=== PATIENT | male | born 1950 | race Caucasian/White ===

== ENCOUNTER 2016-12-06 21:02 | Emergency (ER) | payer MEDICARE, OTHER ==
[2016-12-06 21:08] VITALS: TEMP 97.2
[2016-12-06] MEDS ORDERED: ONDANSETRON 4 MG/2 ML VIAL IVP STA (21:33)
[2016-12-06 21:41] LABS: Basophils # (A) 0.1 k/uL (0-0.2); Basophils % (A) 1 %; CH 31.9; CHCM 34.4; Eosinophils # (A) 0.5 k/uL (0-0.7); Eosinophils % (A) 5 %; HCT 37.3 % (39.0-53.0); HDW 2.47; HGB 13.3 gm/dL (13.0-17.5); Luc # (Auto) 0.21; Luc % (Auto) 2; Lymphocytes # (A) 2.8 k/uL (1.0-4.8); Lymphocytes % (A) 29 %; MCH 33.3 pg (25.0-35.0); MCHC 35.7 g/dL (31.0-37.0); MCV 93.2 fL (80.0-100.0); Mean Platelet Volume 7.9; Monocytes # (A) 0.4 k/uL (0-1.0); Monocytes % (A) 4 %; Neutrophils # (A) 5.7 k/uL (1.3-7.7); Neutrophils % (A) 59 %; WBC 9.6 k/uL (3.8-10.6); WBC (Perox) 9.92
--- NOTE | 2016-12-06 21:44 | ED ---
Nausea/Vomiting/Diarrhea HPI - General Chief complaint: Nausea/Vomiting/Diarrhea Stated complaint: Dizzy/Vomiting Time Seen by Provider: 12/06/16 21:16 Source: patient Mode of arrival: wheelchair Limitations: no limitations - History of Present Illness Initial comments: This patient is a 66-year-old man who presents because for 3 days he has been having a lot of what he is describing as dizziness. Patient states that particularly when he gets up he feels unsteady like he will fall. The patient also states that he'll here a rushing sound in his ears. He questions whether he has a sinus infection because he has also had some pressure in his sinuses and some congestion. He does have occasional cough. The patient also states that he had recently taken a medication for his prostate and that this may be bringing the symptoms on as well. He did not recall the exact name of the medication. The patient states that this is leading to him having some vomiting and this appears to be why he was triaged as nausea and vomiting. The patient feels that the dizziness is at the root of things. Patient denies any change in his bowel movements. He states that he hasn't really been having the vomiting when he sits at rest. Patient furthermore denies anginal type symptoms , no chest pain, diaphoresis, dyspnea, palpitations or syncope. MD complaint: nausea, vomiting, other (Dizziness) Onset/Timin -: days(s) Description of Vomiting: food contents Associated Abdominal Pain: No Consistency: intermittent Worsens with: movement Associated Symptoms: nausea/vomiting - Related Data Home Medications Medication Instructions Recorded Confirmed Ergocalciferol [Vitamin D2 50,000 unit PO CORREA 05/01/14 12/06/16 (DRISDOL)] Gabapentin [Neurontin] 100 mg PO TID PRN 05/01/14 12/06/16 Hydrocodone/Acetaminophen 1 tab PO TID PRN 05/01/14 12/06/16 [Hydrocodon-Acetaminoph 7.5-325] Montelukast [Singulair] 10 mg PO DAILY 05/01/14 12/06/16 Sertraline [Zoloft] 50 mg PO DAILY 05/01/14 12/06/16 Verapamil HCl [Verapamil ER] 120 mg PO DAILY 05/01/14 12/06/16 busPIRone HCl [Buspar] 10 mg PO DAILY 05/01/14 12/06/16 metFORMIN HCL 1,000 mg PO DAILY 11/22/14 12/06/16 Citalopram Hydrobromide [CeleXA] 20 mg PO DAILY 12/06/16 12/06/16 Ibuprofen [Motrin] 800 mg PO BID PRN 12/06/16 12/06/16 Lisinopril [Zestril] 20 mg PO DAILY 12/06/16 12/06/16 Ranitidine HCl [Zantac] 150 mg PO DAILY 12/06/16 12/06/16 Tamsulosin HCl [Flomax] 0.4 mg PO DAILY 12/06/16 12/06/16 Previous Rx's Medication Instructions Recorded Azithromycin [Zithromax Z-pack] 250 mg PO DIRECTED #6 tab 12/06/16 Pseudoephedrine 12Hr [Sudafed 12Hr] 120 mg PO Q12H #20 tablet.er 12/06/16 Allergies Allergy/AdvReac Type Severity Reaction Status Date / Time dipyridamole AdvReac Nausea & Verified 12/06/16 21:58 [From Persantine] Vomiting Iodinated Contrast Media - AdvReac Nausea & Verified 12/06/16 21:58 Oral and Vomiting [Iodinated Contrast Media - IV Dye] morphine AdvReac Nausea & Verified 12/06/16 21:08 Vomiting Review of Systems ROS Statement: Those systems with pertinent positive or pertinent negative responses have been documented in the HPI. ROS Other: All systems not noted in ROS Statement are negative. Constitutional: Denies: fever, chills, weakness Eyes: Denies: vision change ENT: Reports: ear pain, congestion Respiratory: Denies: cough, dyspnea Cardiovascular: Denies: chest pain, palpitations, edema, syncope Gastrointestinal: Reports: nausea, vomiting. Denies: abdominal pain, diarrhea, constipation, hematemesis Genitourinary: Denies: dysuria, hematuria Musculoskeletal: Denies: back pain Skin: Denies: rash Neurological: Denies: headache, weakness, numbness, paresthesias Past Medical History Past Medical History: Diabetes Mellitus, GERD/Reflux, Hyperlipidemia, Hypertension, Sleep Apnea/CPAP/BIPAP Additional Past Medical History / Comment(s): 11/22/14 Pt direct admission to [facility]. He is to have Ben fundoplasty today and has no water at home. Other HX: IDDM, ERIKA cannot tolerate CPAP, varicose veins, hiatal hernia, constipation occas bleeding with stools, hemorrhoids, steroid injections with in 6 mos, current tooth infection being tx with antibiotics-has taken 2 days of ABX. History of Any Multi-Drug Resistant Organisms: None Reported Past Surgical History: Back Surgery, Cholecystectomy, Heart Catheterization, Hernia Repair Additional Past Surgical History / Comment(s): arthroscopy right knee. bilateral cataracts,jeancarlos inguinal hernia repair Past Anesthesia/Blood Transfusion Reactions: No Reported Reaction Past Psychological History: Anxiety Smoking Status: Never smoker Past Alcohol Use History: None Reported Past Drug Use History: None Reported - Past Family History Mother Additional Family Medical History / Comment(s): HAD PACEMAKER, age 86 Father Family Medical History: Dementia General Exam Limitations: no limitations General appearance: alert, in no apparent distress Head exam: Present: atraumatic, normocephalic Eye exam: Present: normal appearance. Absent: scleral icterus, conjunctival injection ENT exam: Present: normal oropharynx, mucous membranes moist, TM's normal bilaterally, normal external ear exam Neck exam: Present: normal inspection, full ROM Respiratory exam: Present: normal lung sounds bilaterally. Absent: respiratory distress, wheezes, rales, rhonchi, stridor, chest wall tenderness Cardiovascular Exam: Present: regular rate, normal rhythm, normal heart sounds. Absent: systolic murmur, diastolic murmur, rubs, gallop GI/Abdominal exam: Present: soft. Absent: distended, tenderness, guarding, rebound, mass, pulsatile mass, hernia Extremities exam: Present: normal inspection, normal capillary refill. Absent: pedal edema, calf tenderness Back exam: Present: normal inspection. Absent: CVA tenderness (R), CVA tenderness (L) Neurological exam: Present: alert, CN II-XII intact. Absent: motor sensory deficit Skin exam: Present: warm, dry, intact, normal color. Absent: rash Course Vital Signs 12/06/16 12/06/16 12/06/16 21:05 21:43 21:44 Temperature 97.2 F L Pulse Rate 59 L Pulse Rate [ 57 L 59 L French Tutor ] Respiratory 20 Rate Blood Pressure 173/84 Blood Pressure 158/86 160/89 [Right Arm] O2 Sat by Pulse 98 Oximetry Medical Decision Making - Medical Decision Making Patient is 66-year-old man in with the complaint of dizziness, nausea and vomiting. Further history at related to the dizziness indicates that it is more of a vertiginous, spinning sensation, and in conjunction with the patient' s sinus symptoms of pressure, cough and congestion will treat patient for sinusitis with antibiotic and decongestant. Patient to follow-up to ensure that his symptoms resolved and if not to have further investigation, including possibly ENT consultation. In relation to the patient's new prostate medication there is no orthostasis. - Lab Data Result diagrams: 12/06/16 21:20 12/06/16 21:20 Lab Results 12/06/16 12/06/16 12/06/16 Range/Units 21:20 21:20 21:20 WBC 9.6 (3.8-10.6) k/uL RBC 4.00 L (4.30-5.90) m/uL Hgb 13.3 (13.0-17.5) gm/dL Hct 37.3 L (39.0-53.0) % MCV 93.2 (80.0-100.0) fL MCH 33.3 (25.0-35.0) pg MCHC 35.7 (31.0-37.0) g/dL RDW 13.0 (11.5-15.5) % Plt Count 189 (150-450) k/uL Neutrophils % 59 % Lymphocytes % 29 % Monocytes % 4 % Eosinophils % 5 % Basophils % 1 % Neutrophils # 5.7 (1.3-7.7) k/uL Lymphocytes # 2.8 (1.0-4.8) k/uL Monocytes # 0.4 (0-1.0) k/uL Eosinophils # 0.5 (0-0.7) k/uL Basophils # 0.1 (0-0.2) k/uL Sodium 138 (137-145) mmol/L Potassium 4.0 (3.5-5.1) mmol/L Chloride 106 (98-107) mmol/L Carbon Dioxide 18 L (22-30) mmol/L Anion Gap 14 mmol/L BUN 12 (9-20) mg/dL Creatinine 0.99 (0.66-1.25) mg/dL Est GFR (MDRD) Af Amer >60 (>60 ml/min/1.73 sqM) Est GFR (MDRD) Non-Af >60 (>60 ml/min/1.73 sqM) Glucose 117 H (74-99) mg/dL Calcium 9.6 (8.4-10.2) mg/dL Total Bilirubin 0.6 (0.2-1.3) mg/dL AST 16 L (17-59) U/L ALT 21 (21-72) U/L Alkaline Phosphatase 63 (38-126) U/L Troponin I <0.012 (0.000-0.034) ng/mL Total Protein 7.2 (6.3-8.2) g/dL Albumin 4.3 (3.5-5.0) g/dL Amylase 288 H (30-110) U/L Lipase 74 (23-300) U/L Urine Color Urine Appearance (Clear) Urine pH (5.0-8.0) Ur Specific Armstrong (1.001-1.035) Urine Protein (Negative) Urine Glucose (UA) (Negative) Urine Ketones (Negative) Urine Blood (Negative) Urine Nitrite (Negative) Urine Bilirubin (Negative) Urine Urobilinogen (<2.0) mg/dL Ur Leukocyte Esterase (Negative) 12/06/16 Range/Units 22:14 WBC (3.8-10.6) k/uL RBC (4.30-5.90) m/uL Hgb (13.0-17.5) gm/dL Hct (39.0-53.0) % MCV (80.0-100.0) fL MCH (25.0-35.0) pg MCHC (31.0-37.0) g/dL RDW (11.5-15.5) % Plt Count (150-450) k/uL Neutrophils % % Lymphocytes % % Monocytes % % Eosinophils % % Basophils % % Neutrophils # (1.3-7.7) k/uL Lymphocytes # (1.0-4.8) k/uL Monocytes # (0-1.0) k/uL Eosinophils # (0-0.7) k/uL Basophils # (0-0.2) k/uL Sodium (137-145) mmol/L Potassium (3.5-5.1) mmol/L Chloride (98-107) mmol/L Carbon Dioxide (22-30) mmol/L Anion Gap mmol/L BUN (9-20) mg/dL Creatinine (0.66-1.25) mg/dL Est GFR (MDRD) Af Amer (>60 ml/min/1.73 sqM) Est GFR (MDRD) Non-Af (>60 ml/min/1.73 sqM) Glucose (74-99) mg/dL Calcium (8.4-10.2) mg/dL Total Bilirubin (0.2-1.3) mg/dL AST (17-59) U/L ALT (21-72) U/L Alkaline Phosphatase (38-126) U/L Troponin I (0.000-0.034) ng/mL Total Protein (6.3-8.2) g/dL Albumin (3.5-5.0) g/dL Amylase (30-110) U/L Lipase (23-300) U/L Urine Color Yellow Urine Appearance Clear (Clear) Urine pH 5.5 (5.0-8.0) Ur Specific Armstrong 1.013 (1.001-1.035) Urine Protein Negative (Negative) Urine Glucose (UA) Negative (Negative) Urine Ketones Negative (Negative) Urine Blood Negative (Negative) Urine Nitrite Negative (Negative) Urine Bilirubin Negative (Negative) Urine Urobilinogen <2.0 (<2.0) mg/dL Ur Leukocyte Esterase Negative (Negative) - EKG Data -: EKG Interpreted by Mt EKG shows normal: sinus rhythm, axis (Left axis deviation), intervals (Normal), ST-T waves (Normal) Rate: bradycardia (Rate 57 bpm) Interpretation: LVH Disposition Clinical Impression: Vomiting, Sinusitis, Elevated lipase Disposition: HOME SELF-CARE Condition: Fair Instructions: Acute Nausea and Vomiting (ED) Prescriptions: Azithromycin [Zithromax Z-pack] 250 mg PO DIRECTED #6 tab Pseudoephedrine 12Hr [Sudafed 12Hr] 120 mg PO Q12H #20 tablet.er Referrals: Hawk Gaona MD [Primary Care Provider] - 1-2 days
[2016-12-06 22:01] LABS: ALT 21 U/L (21-72); AST 16 U/L (17-59); Alkaline Phosphatase 63 U/L (38-126); Amylase 288 U/L (30-110); Anion Gap 14 mmol/L; Blood Urea Nitrogen 12 mg/dL (9-20); Calcium 9.6 mg/dL (8.4-10.2); Carbon Dioxide 18 mmol/L (22-30); Chloride 106 mmol/L (98-107); Glucose 117 mg/dL (74-99); Non-African American GFR(MDRD) >60 (>60 ml/min/1.73 sqM); Sodium 138 mmol/L (137-145); Total Bilirubin 0.6 mg/dL (0.2-1.3); Total Protein 7.2 g/dL (6.3-8.2)
[2016-12-06 22:25] LABS: Appearance,Urine Clear (Clear); Bilirubin,Urine Negative (Negative); Glucose,Urine (UA) Negative (Negative); Ketones,Urine Negative (Negative); Leukocyte Esterase,Urine Negative (Negative); Nitrite,Urine Negative (Negative); PH, Urine 5.5 (5.0-8.0); Protein,Urine Negative (Negative); Specific Gravity,Urine 1.013 (1.001-1.035); UA Billing (MACRO vs. MICRO) CHEM; Urobilinogen,Urine <2.0 mg/dL (<2.0)
[2016-12-06 23:09] VITALS: BP 137/76; PULSE 58; RESP 18
== END 2016-12-06 23:07 | disposition home or self-care (01) ==
LOC: EC 21:02
DX: R11.2 Nausea with vomiting, unspecified (principal); J32.9 Chronic sinusitis, unspecified; R74.8 Abnormal levels of other serum enzymes; E11.9 Type 2 diabetes mellitus without complications; K21.9 Gastro-esophageal reflux disease without esophagitis; I10 Essential (primary) hypertension; F41.9 Anxiety disorder, unspecified; Z79.84 Long term (current) use of oral hypoglycemic drugs; Z79.899 Other long term (current) drug therapy; Z88.5 Allergy status to narcotic agent; Z88.8 Allergy status to other drugs, medicaments and biological substances; Z91.041 Radiographic dye allergy status
CPT/HCPCS: 36415; 80053; 82150; 83690; 84484; 85025; 81003; 99284; 96374; J2405

== ENCOUNTER 2016-12-24 20:23 | Emergency (ER) | payer MEDICARE, OTHER ==
[2016-12-24 20:56] LABS: Basophils % (A) 1 %; CH 32.9; CHCM 34.4; Eosinophils # (A) 0.2 k/uL (0-0.7); Eosinophils % (A) 2 %; HCT 37.5 % (39.0-53.0); HDW 2.39; HGB 12.8 gm/dL (13.0-17.5); Luc # (Auto) 0.14; Luc % (Auto) 2; Lymphocytes % (A) 23 %; MCH 32.8 pg (25.0-35.0); MCHC 34.1 g/dL (31.0-37.0); MCV 96.2 fL (80.0-100.0); Mean Platelet Volume 8.7; Monocytes # (A) 0.4 k/uL (0-1.0); Monocytes % (A) 5 %; Neutrophils # (A) 5.7 k/uL (1.3-7.7); Neutrophils % (A) 68 %; RDW 13.5 % (11.5-15.5); WBC 8.4 k/uL (3.8-10.6); WBC (Perox) 8.22
--- NOTE | 2016-12-24 21:05 | XR ---
EXAMINATION TYPE: XR chest 2V DATE OF EXAM: 12/24/2016 COMPARISON: 07/17/2013 HISTORY: Chest pain TECHNIQUE: Frontal and lateral views of the chest are obtained. FINDINGS: Heart and mediastinum are normal. Lungs are clear of consolidation. There is some linear d ensity at the left lung base. There are chest leads. Bony thorax is intact. IMPRESSION: Linear density at the left lung base consistent with atelectasis that is new compared to old exam. Inspiration is slightly less than old exam. Normal heart.
[2016-12-24 21:06] LABS: ALT 29 U/L (21-72); AST 15 U/L (17-59); Alkaline Phosphatase 64 U/L (38-126); Anion Gap 9 mmol/L; Blood Urea Nitrogen 8 mg/dL (9-20); Calcium 8.5 mg/dL (8.4-10.2); Carbon Dioxide 21 mmol/L (22-30); Chloride 102 mmol/L (98-107); Glucose 173 mg/dL (74-99); Magnesium 1.6 mg/dL (1.6-2.3); Non-African American GFR(MDRD) >60 (>60 ml/min/1.73 sqM); Potassium 4.5 mmol/L (3.5-5.1); Sodium 132 mmol/L (137-145); Total Bilirubin 0.4 mg/dL (0.2-1.3)
[2016-12-24 21:10] LABS: INR 1.1 (<1.2); Partial Thromboplastin Time 22.8 sec (22.0-30.0); Prothrombin Time 11.1 sec (9.0-12.0)
[2016-12-24 21:22] LABS: Creatine Kinase 84 U/L (55-170)
[2016-12-24 21:36] LABS: Troponin I <0.012 ng/mL (0.000-0.034)
[2016-12-24 21:39] LABS: Creatine Kinase MB 3.9 ng/mL (0.0-2.4)
[2016-12-24 22:11] LABS: Glucose,Whole Blood 69 mg/dL (75-99)
[2016-12-24 22:39] LABS: Glucose,Whole Blood 143 mg/dL (75-99)
[2016-12-24 23:46] VITALS: BP 117/71
--- NOTE | 2016-12-25 00:23 | ED ---
General Adult HPI - General Chief complaint: Chest Pain Stated complaint: CARDIAC Time Seen by Provider: 12/24/16 20:43 Source: patient, EMS, RN notes reviewed Mode of arrival: EMS - History of Present Illness Initial comments: 66-year-old male with past medical history of hypertension diabetes presents with syncopal episode. According the patient's spouse he was unresponsive for proximally 3 minutes. He was in a chair at the time there was no trauma. Patient was diaphoretic and did complain of some shortness of breath. He denied chest pain. States he had several episodes of nausea and vomiting. Patient states he accidentally took an extra dose of his antihypertensive medication verapamil. Patient was given aspirin nitroglycerin by EMS prior to arrival. The time my evaluation he has no complaints. Denies chest pain or shortness of breath. Denies lightheadedness. - Related Data Home Medications Medication Instructions Recorded Confirmed Gabapentin [Neurontin] 100 mg PO TID 05/01/14 12/24/16 Hydrocodone/Acetaminophen 1 tab PO TID PRN 05/01/14 12/24/16 [Hydrocodon-Acetaminoph 7.5-325] Montelukast [Singulair] 10 mg PO DAILY 05/01/14 12/24/16 Verapamil HCl [Verapamil ER] 120 mg PO DAILY 05/01/14 12/24/16 busPIRone HCl [Buspar] 10 mg PO BID 05/01/14 12/24/16 metFORMIN HCL 1,000 mg PO BID 11/22/14 12/24/16 Tamsulosin HCl [Flomax] 0.4 mg PO DAILY 12/06/16 12/24/16 Lisinopril [Zestril] 10 mg PO DAILY 12/24/16 12/24/16 Meclizine [Antivert] 12.5 mg PO TID 12/24/16 12/24/16 Sertraline [Zoloft] 25 mg PO DAILY 12/24/16 12/24/16 Allergies Allergy/AdvReac Type Severity Reaction Status Date / Time dipyridamole AdvReac Nausea & Verified 12/24/16 20:51 [From Persantine] Vomiting Iodinated Contrast- Oral and AdvReac Nausea & Verified 12/24/16 20:51 IV Dye Vomiting [Iodinated Contrast Media - IV Dye] morphine AdvReac Nausea & Verified 12/24/16 20:51 Vomiting Review of Systems ROS Statement: Those systems with pertinent positive or pertinent negative responses have been documented in the HPI. ROS Other: All systems not noted in ROS Statement are negative. Respiratory: Denies: dyspnea Cardiovascular: Denies: chest pain Past Medical History Past Medical History: Diabetes Mellitus, GERD/Reflux, Hyperlipidemia, Hypertension, Sleep Apnea/CPAP/BIPAP Additional Past Medical History / Comment(s): 11/22/14 Pt direct admission to [facility]. He is to have Ben fundoplasty today and has no water at home. Other HX: IDDM, ERIKA cannot tolerate CPAP, varicose veins, hiatal hernia, constipation occas bleeding with stools, hemorrhoids, steroid injections with in 6 mos, current tooth infection being tx with antibiotics-has taken 2 days of ABX. History of Any Multi-Drug Resistant Organisms: None Reported Past Surgical History: Back Surgery, Cholecystectomy, Heart Catheterization, Hernia Repair Additional Past Surgical History / Comment(s): arthroscopy right knee. bilateral cataracts,jeancarlos inguinal hernia repair Past Anesthesia/Blood Transfusion Reactions: No Reported Reaction Past Psychological History: Anxiety Smoking Status: Never smoker Past Alcohol Use History: None Reported Past Drug Use History: None Reported - Past Family History Mother Additional Family Medical History / Comment(s): HAD PACEMAKER, age 86 Father Family Medical History: Dementia Course Vital Signs 12/24/16 12/24/16 12/24/16 20:25 22:14 23:45 Temperature 96.9 F L 96.7 F L Pulse Rate 54 L 53 L 56 L Respiratory 14 14 16 Rate Blood Pressure 103/62 117/71 O2 Sat by Pulse 96 100 100 Oximetry - Reevaluation(s) Reevaluation #1: 12/25/16 00:22 Reevaluation patient remains asymptomatic. Vital signs remained stable. EKG Findings - EKG Comments: EKG Findings:: EKG shows sinus bradycardia, ventricular 54, MD interval 206, QRS duration 104, QTC is 435 Medical Decision Making - Medical Decision Making 66-year-old male presenting with syncopal episode. Episode was associated with diaphoresis nausea and vomiting. No chest pain reported. Patient states he accidentally Took an extra dose of his verapamil. Patient is asymptomatic at the time of my evaluation. Chest x-ray shows no acute process. Laboratory studies including CBC, CMP and cardiac enzymes is unremarkable. Diagnosis: Syncope, secondary to medication overdose. - Lab Data Result diagrams: 12/24/16 20:29 12/24/16 20:29 Lab Results 12/24/16 12/24/16 12/24/16 Range/Units 20:29 20:29 20:29 WBC 8.4 (3.8-10.6) k/uL RBC 3.90 L (4.30-5.90) m/uL Hgb 12.8 L (13.0-17.5) gm/dL Hct 37.5 L (39.0-53.0) % MCV 96.2 (80.0-100.0) fL MCH 32.8 (25.0-35.0) pg MCHC 34.1 (31.0-37.0) g/dL RDW 13.5 (11.5-15.5) % Plt Count 167 (150-450) k/uL Neutrophils % 68 % Lymphocytes % 23 % Monocytes % 5 % Eosinophils % 2 % Basophils % 1 % Neutrophils # 5.7 (1.3-7.7) k/uL Lymphocytes # 2.0 (1.0-4.8) k/uL Monocytes # 0.4 (0-1.0) k/uL Eosinophils # 0.2 (0-0.7) k/uL Basophils # 0.0 (0-0.2) k/uL PT (9.0-12.0) sec INR (<1.2) APTT (22.0-30.0) sec Sodium 132 L (137-145) mmol/L Potassium 4.5 (3.5-5.1) mmol/L Chloride 102 (98-107) mmol/L Carbon Dioxide 21 L (22-30) mmol/L Anion Gap 9 mmol/L BUN 8 L (9-20) mg/dL Creatinine 1.00 (0.66-1.25) mg/dL Est GFR (MDRD) Af Amer >60 (>60 ml/min/1.73 sqM) Est GFR (MDRD) Non-Af >60 (>60 ml/min/1.73 sqM) Glucose 173 H (74-99) mg/dL POC Glucose (mg/dL) (75-99) mg/dL POC Glu Manager [employer] ID Calcium 8.5 (8.4-10.2) mg/dL Magnesium 1.6 (1.6-2.3) mg/dL Total Bilirubin 0.4 (0.2-1.3) mg/dL AST 15 L (17-59) U/L ALT 29 (21-72) U/L Alkaline Phosphatase 64 (38-126) U/L Total Creatine Kinase 84 (55-170) U/L CK-MB (CK-2) 3.9 H* (0.0-2.4) ng/mL CK-MB (CK-2) Rel Index 4.6 Troponin I <0.012 (0.000-0.034) ng/mL NT-Pro-B Natriuret Pep pg/mL Total Protein 6.0 L (6.3-8.2) g/dL Albumin 3.7 (3.5-5.0) g/dL Lipase 75 (23-300) U/L 12/24/16 12/24/16 12/24/16 Range/Units 20:29 20:29 21:50 WBC (3.8-10.6) k/uL RBC (4.30-5.90) m/uL Hgb (13.0-17.5) gm/dL Hct (39.0-53.0) % MCV (80.0-100.0) fL MCH (25.0-35.0) pg MCHC (31.0-37.0) g/dL RDW (11.5-15.5) % Plt Count (150-450) k/uL Neutrophils % % Lymphocytes % % Monocytes % % Eosinophils % % Basophils % % Neutrophils # (1.3-7.7) k/uL Lymphocytes # (1.0-4.8) k/uL Monocytes # (0-1.0) k/uL Eosinophils # (0-0.7) k/uL Basophils # (0-0.2) k/uL PT 11.1 (9.0-12.0) sec INR 1.1 (<1.2) APTT 22.8 (22.0-30.0) sec Sodium (137-145) mmol/L Potassium (3.5-5.1) mmol/L Chloride (98-107) mmol/L Carbon Dioxide (22-30) mmol/L Anion Gap mmol/L BUN (9-20) mg/dL Creatinine (0.66-1.25) mg/dL Est GFR (MDRD) Af Amer (>60 ml/min/1.73 sqM) Est GFR (MDRD) Non-Af (>60 ml/min/1.73 sqM) Glucose (74-99) mg/dL POC Glucose (mg/dL) 69 L (75-99) mg/dL POC Glu Manager [employer] ID Shruthi Munoz Calcium (8.4-10.2) mg/dL Magnesium (1.6-2.3) mg/dL Total Bilirubin (0.2-1.3) mg/dL AST (17-59) U/L ALT (21-72) U/L Alkaline Phosphatase (38-126) U/L Total Creatine Kinase (55-170) U/L CK-MB (CK-2) (0.0-2.4) ng/mL CK-MB (CK-2) Rel Index Troponin I (0.000-0.034) ng/mL NT-Pro-B Natriuret Pep 36 pg/mL Total Protein (6.3-8.2) g/dL Albumin (3.5-5.0) g/dL Lipase (23-300) U/L 12/24/16 Range/Units 22:36 WBC (3.8-10.6) k/uL RBC (4.30-5.90) m/uL Hgb (13.0-17.5) gm/dL Hct (39.0-53.0) % MCV (80.0-100.0) fL MCH (25.0-35.0) pg MCHC (31.0-37.0) g/dL RDW (11.5-15.5) % Plt Count (150-450) k/uL Neutrophils % % Lymphocytes % % Monocytes % % Eosinophils % % Basophils % % Neutrophils # (1.3-7.7) k/uL Lymphocytes # (1.0-4.8) k/uL Monocytes # (0-1.0) k/uL Eosinophils # (0-0.7) k/uL Basophils # (0-0.2) k/uL PT (9.0-12.0) sec INR (<1.2) APTT (22.0-30.0) sec Sodium (137-145) mmol/L Potassium (3.5-5.1) mmol/L Chloride (98-107) mmol/L Carbon Dioxide (22-30) mmol/L Anion Gap mmol/L BUN (9-20) mg/dL Creatinine (0.66-1.25) mg/dL Est GFR (MDRD) Af Amer (>60 ml/min/1.73 sqM) Est GFR (MDRD) Non-Af (>60 ml/min/1.73 sqM) Glucose (74-99) mg/dL POC Glucose (mg/dL) 143 H (75-99) mg/dL POC Glu Manager Government ID Shruthi Munoz Calcium (8.4-10.2) mg/dL Magnesium (1.6-2.3) mg/dL Total Bilirubin (0.2-1.3) mg/dL AST (17-59) U/L ALT (21-72) U/L Alkaline Phosphatase (38-126) U/L Total Creatine Kinase (55-170) U/L CK-MB (CK-2) (0.0-2.4) ng/mL CK-MB (CK-2) Rel Index Troponin I (0.000-0.034) ng/mL NT-Pro-B Natriuret Pep pg/mL Total Protein (6.3-8.2) g/dL Albumin (3.5-5.0) g/dL Lipase (23-300) U/L Disposition Clinical Impression: Syncope Disposition: HOME SELF-CARE Condition: Good Instructions: Syncope (ED) Referrals: Hawk Gaona MD [Primary Care Provider] - 1-2 days Time of Disposition: 11:45
[2016-12-25 00:54] VITALS: PULSE 59; RESP 14; TEMP 97.2
== END 2016-12-25 01:04 | disposition home or self-care (01) ==
LOC: EC 20:23
DX: R55 Syncope and collapse (principal); R07.9 Chest pain, unspecified; R06.02 Shortness of breath; R00.1 Bradycardia, unspecified; R11.2 Nausea with vomiting, unspecified; E11.9 Type 2 diabetes mellitus without complications; E78.5 Hyperlipidemia, unspecified; I10 Essential (primary) hypertension; F41.9 Anxiety disorder, unspecified; Z95.5 Presence of coronary angioplasty implant and graft; Z88.5 Allergy status to narcotic agent; Z88.8 Allergy status to other drugs, medicaments and biological substances; Z91.041 Radiographic dye allergy status; Z79.84 Long term (current) use of oral hypoglycemic drugs; Z79.899 Other long term (current) drug therapy
CPT/HCPCS: 36415; 71020; 80053; 82550; 82553; 83690; 83735; 83880; 84484; 85025; 85610; 85730; 93005; 99285

== ENCOUNTER → 2017-01-06 | Outpatient (CLI) | payer MEDICARE, OTHER ==
--- NOTE | 2017-01-06 11:34 | ECHOF ---
Referral Reason:R55 sycope MEASUREMENTS -------- HEIGHT: 177.8 cm WEIGHT: 83.9 kg BP: 130/79 RVIDd: 3.5 cm (< 3.3) IVSd: 1.5 cm (0.6 - 1.1) LVIDd: 4.7 cm (3.9 - 5.3) LVPWd: 1.6 cm (0.6 - 1.1) IVSs: 1.9 cm LVIDs: 3.3 cm LVPWs: 1.9 cm LA Diam: 3.7 cm (2.7 - 3.8) LAESV Index (A-L): 29.57 ml/m Ao Diam: 3.5 cm (2.0 - 3.7) AV Cusp: 2.3 cm (1.5 - 2.6) MV EXCURSION: 21.518 mm (> 18.000) MV EF SLOPE: 48 mm/s (70 - 150) EPSS: 1.3 cm MV E Nicolas: 0.70 m/s MV DecT: 273 ms MV A Nicolas: 0.99 m/s MV E/A Ratio: 0.71 AV maxP.05 mmHg AV meanP.22 mmHg RAP: 5.00 mmHg RVSP: 29.15 mmHg FINDINGS -------- Sinus rhythm. This was a technically good study. The left ventricular size is normal. There is moderate concentric left ventricular hypertrophy. Overall left ventricular systolic function is normal with, an EF between 60 - 65 %. The right ventricle is mildly enlarged. LA is midly dilated 29-33ml/m2. The right atrium is normal in size. Aortic valve is trileaflet and is mildly thickened. Peak/mean gradient across the Aortic Valve is 15.05mmHg / 6.22mmHg. Normal appearing mitral valve. Mild tricuspid regurgitation present. Right ventricular systolic pressure is normal at < 35 mmHg. The pulmonic valve was not well visualized. The aortic root size is normal. Normal inferior vena cava with normal inspiratory collapse consistent with estimated right atrial pressure of 5 mmHg. There is no pericardial effusion. CONCLUSIONS -------- 1. Sinus rhythm. 2. Peak/mean gradient across the Aortic Valve is 15.05mmHg / 6.22mmHg. 3. Normal appearing mitral valve. 4. Mild tricuspid regurgitation present. 5. Right ventricular systolic pressure is normal at < 35 mmHg. 6. The pulmonic valve was not well visualized. 7. The aortic root size is normal. 8. Normal inferior vena cava with normal inspiratory collapse consistent with estimated right atrial pressure of 5 mmHg. 9. There is no pericardial effusion. 10. This was a technically good study. 11. The left ventricular size is normal. 12. There is moderate concentric left ventricular hypertrophy. 13. Overall left ventricular systolic function is normal with, an EF between 60 - 65 %. 14. The right ventricle is mildly enlarged. 15. LA is midly dilated 29-33ml/m2. 16. The right atrium is normal in size. 17. Aortic valve is trileaflet and is mildly thickened. MANAGER [employer]IT: Karoline Avalos RDCS
== END | disposition home or self-care (01) ==
LOC: RADNMMAIN 09:10
PROVIDERS: ATTEND Family Medicine
DX: I07.1 Rheumatic tricuspid insufficiency (principal); I35.8 Other nonrheumatic aortic valve disorders
CPT/HCPCS: 93306

== ENCOUNTER → 2017-01-07 | Outpatient (CLI) | payer MEDICARE, OTHER ==
[~2017-01-07] MED LIST: REGADENOSON 0.4 MG/5 ML SYRINGE IV ONE
--- NOTE | 2017-01-07 11:29 | NM ---
EXAMINATION TYPE: NM stress lexiscan cardiolite DATE OF EXAM: 01/07/2017 COMPARISON: NONE HISTORY: Syncope TECHNIQUE: After the intravenous administration of 9.96 mCi Tc 99m Sestamibi - Cardiolite resting SP ECT images acquired 45 minutes post injection. The patient received 0.4mg Lexiscan, 25 mCi Tc 99m Sestamibi - Stress images obtained 30 minutes post injection FINDINGS: Review of stress and rest SPECT images demonstrates no distinct perfusion abnormality. Gated analysi s shows an estimated left ventricular ejection fraction of 48 %. This is slightly low. Normal is grea ter than 50%. This may be related to some mild dyskinesia of the cardiac apex. There is diminished radiotracer accumulation along the inferior wall. This could be due to artifact. Prior infarct is not excluded. Correlate with EKG changes. No reversible perfusion defects are evident. Polar maps appear normal. IMPRESSION: 1. No stress-induced ischemic change. 2. Findings suggestive for artifact along the diaphragm at the inferior wall of the heart. Prior infa rct is considered less likely. Correlate with EKG changes. 3. Mild cardiac apex dyskinesia. 4. Mild low ejection fraction of 48%
--- NOTE | 2017-01-10 17:15 | P.STRESS ---
- Stress Test Note Stress Test Results/Findings: Exam Performed: NM stress lexiscan cardiolite Exam Date: 01/07/17 Reason for Exam: syncope Height: 5 ft 10 in Weight: 83.915 kg Protocol: Susie Stage: N/A Duration of Exercise: N/A Resting Heart Rate: 60 Resting Blood Pressure: 172/90 Maximum Achieved Heart Rate: 84 Maximum Achieved Blood Pressure: 191/98 85% PMHR: 131 100% PMHR: 154 METS: N/A Technologist Comment: Stress Test Results/Findings: Patient was given Lexiscan injection over a period of 15 seconds. EKG shows normal sinus rhythm with nonspecific T-wave changes. No ST segment depression suggestive ischemia is noted. The results of the nuclear study will follow.
== END ==
LOC: RADNMMAIN 08:32
PROVIDERS: ATTEND Family Medicine
DX: G24.9 Dystonia, unspecified (principal)
CPT/HCPCS: 93017; 78452; A9500; J2785

== ENCOUNTER 2017-09-13 19:17 | Observation (INO) | payer MEDICARE, OTHER ==
[2017-09-13 19:59] LABS: Basophils % (A) 0 %; Eosinophils # (A) 0.4 k/uL (0-0.7); Eosinophils % (A) 5 %; HCT 41.1 % (39.0-53.0); HGB 14.2 gm/dL (13.0-17.5); Lymphocytes # (A) 2.2 k/uL (1.0-4.8); Lymphocytes % (A) 27 %; MCH 31.5 pg (25.0-35.0); MCHC 34.6 g/dL (31.0-37.0); MCV 91.1 fL (80.0-100.0); Mean Platelet Volume 9.2; Monocytes # (A) 0.5 k/uL (0-1.0); Monocytes % (A) 6 %; Neutrophils # (A) 4.9 k/uL (1.3-7.7); Neutrophils % (A) 61 %; Platelet Count 187 k/uL (150-450); RBC 4.51 m/uL (4.30-5.90); RDW 13.1 % (11.5-15.5); WBC 8.1 k/uL (3.8-10.6)
[2017-09-13 20:10] LABS: D-Dimer 0.55 mg/L FEU (<0.60)
[2017-09-13 20:11] LABS: Albumin 4.1 g/dL (3.5-5.0); Calcium 9.3 mg/dL (8.4-10.2); Magnesium 1.8 mg/dL (1.6-2.3); Potassium 4.5 mmol/L (3.5-5.1); Total Bilirubin 0.4 mg/dL (0.2-1.3); Total Protein 6.9 g/dL (6.3-8.2)
[2017-09-13 20:14] LABS: Creatine Kinase 147 U/L (55-170)
[2017-09-13 20:28] LABS: Troponin I <0.012 ng/mL (0.000-0.034)
--- NOTE | 2017-09-13 21:26 | ED ---
General Adult HPI - General Chief complaint: Chest Pain Stated complaint: abnormal EKG-sent by [facility] Time Seen by Provider: 09/13/17 20:46 Source: patient, family, RN notes reviewed Mode of arrival: wheelchair Limitations: no limitations - History of Present Illness Initial comments: Patient is a pleasant 66-year-old male presenting to the emergency department from [facility] for chest discomfort. Onset of symptoms was about 1 week ago. Patient has been having cough and upper respiratory symptoms. Patient states discomfort is described as tightness. Discomfort is sternal however patient has some upper back discomfort with cough only. Sternal discomfort has been waxing and waning. Patient does have some mild shortness of breath. Patient has been somewhat sweaty. No nausea. No history of similar symptoms previously. Patient believes his symptoms are more likely to be infectious. - Related Data Home Medications Medication Instructions Recorded Confirmed Gabapentin [Neurontin] 100 mg PO TID 05/01/14 12/24/16 Hydrocodone/Acetaminophen 1 tab PO TID PRN 05/01/14 12/24/16 [Hydrocodon-Acetaminoph 7.5-325] Montelukast [Singulair] 10 mg PO DAILY 05/01/14 12/24/16 Verapamil HCl [Verapamil ER] 120 mg PO DAILY 05/01/14 12/24/16 busPIRone HCl [Buspar] 10 mg PO BID 05/01/14 12/24/16 Tamsulosin HCl [Flomax] 0.4 mg PO DAILY 12/06/16 12/24/16 Sertraline [Zoloft] 25 mg PO DAILY 12/24/16 12/24/16 Carvedilol [Coreg] 6.25 mg PO BID 09/13/17 09/13/17 Citalopram Hydrobromide [CeleXA] 20 mg PO DAILY 09/13/17 09/13/17 Dicyclomine [Bentyl] 10 mg PO DAILY 09/13/17 09/13/17 Ibuprofen [Motrin] 800 mg PO BID 09/13/17 09/13/17 Lisinopril [Prinivil] 20 mg PO DAILY 09/13/17 09/13/17 Magnesium Oxide [Mag-Ox] 400 mg PO DAILY 09/13/17 09/13/17 Multivitamins, Thera [Multivitamin 1 tab PO DAILY 09/13/17 09/13/17 (formulary)] Ranitidine HCl [Zantac] 150 mg PO DAILY 09/13/17 09/13/17 metFORMIN HCL [Glucophage] 500 mg PO DAILY 09/13/17 09/13/17 Allergies Allergy/AdvReac Type Severity Reaction Status Date / Time dipyridamole AdvReac Nausea & Verified 09/13/17 21:22 [From Persantine] Vomiting Iodinated Contrast- Oral and AdvReac Nausea & Verified 09/13/17 21:22 IV Dye Vomiting [Iodinated Contrast Media - IV Dye] morphine AdvReac Nausea & Verified 09/13/17 21:22 Vomiting Review of Systems ROS Statement: Those systems with pertinent positive or pertinent negative responses have been documented in the HPI. ROS Other: All systems not noted in ROS Statement are negative. Constitutional: Denies: fever Eyes: Denies: eye pain ENT: Denies: ear pain Respiratory: Reports: cough, dyspnea Cardiovascular: Reports: chest pain Endocrine: Denies: fatigue Gastrointestinal: Denies: abdominal pain Genitourinary: Denies: dysuria Musculoskeletal: Reports: back pain Skin: Denies: rash Neurological: Denies: weakness Past Medical History Past Medical History: Diabetes Mellitus, GERD/Reflux, Hyperlipidemia, Hypertension, Sleep Apnea/CPAP/BIPAP, Syncope Additional Past Medical History / Comment(s): 11/22/14 Pt direct admission to [facility]. He is to have Ben fundoplasty today and has no water at home. Other HX: IDDM, ERIKA cannot tolerate CPAP, varicose veins, hiatal hernia, constipation occas bleeding with stools, hemorrhoids, steroid injections with in 6 mos, current tooth infection being tx with antibiotics-has taken 2 days of ABX. History of Any Multi-Drug Resistant Organisms: None Reported Past Surgical History: Back Surgery, Cholecystectomy, Heart Catheterization, Hernia Repair Additional Past Surgical History / Comment(s): arthroscopy right knee. bilateral cataracts,jeancarlos inguinal hernia repair Past Anesthesia/Blood Transfusion Reactions: No Reported Reaction Past Psychological History: Anxiety Smoking Status: Never smoker Past Alcohol Use History: Rare Past Drug Use History: None Reported - Past Family History Mother Additional Family Medical History / Comment(s): HAD PACEMAKER, age 86 Father Family Medical History: Dementia General Exam Limitations: no limitations General appearance: alert, in no apparent distress Head exam: Present: atraumatic Eye exam: Present: normal appearance, PERRL ENT exam: Present: normal oropharynx Neck exam: Present: normal inspection Respiratory exam: Present: normal lung sounds bilaterally. Absent: chest wall tenderness Cardiovascular Exam: Present: regular rate, normal rhythm Expanded Peripheral pulses: 2+: Radial (R), Radial (L), Posterior Tibialis (R), Posterior Tibialis (L), Dorsalis Pedis (R), Dorsalis Pedis (L) GI/Abdominal exam: Present: soft. Absent: tenderness Extremities exam: Present: normal inspection. Absent: pedal edema, calf tenderness Back exam: Present: normal inspection. Absent: tenderness Neurological exam: Present: alert Psychiatric exam: Present: normal affect, normal mood Skin exam: Present: normal color Course Vital Signs 09/13/17 19:19 Temperature 97.1 F L Pulse Rate 64 Respiratory 18 Rate Blood Pressure 168/79 O2 Sat by Pulse 98 Oximetry - Reevaluation(s) Reevaluation #1: 09/13/17 21:25 EKG reviewed from [employer]. EKG Findings - EKG Comments: EKG Findings:: Normal sinus rhythm 63. KS 1:30. QRS 90. QT 412. QTC 421. Left axis. Left anterior fascicular block. No acute ST change. Medical Decision Making - Medical Decision Making Patient and family were updated on results and plan. Case was discussed with Dr. Gaona, who will admit his patient. - Lab Data Result diagrams: 09/13/17 19:45 09/13/17 19:45 Lab Results 09/13/17 09/13/17 09/13/17 Range/Units 19:45 19:45 19:45 WBC 8.1 (3.8-10.6) k/uL RBC 4.51 (4.30-5.90) m/uL Hgb 14.2 (13.0-17.5) gm/dL Hct 41.1 (39.0-53.0) % MCV 91.1 (80.0-100.0) fL MCH 31.5 (25.0-35.0) pg MCHC 34.6 (31.0-37.0) g/dL RDW 13.1 (11.5-15.5) % Plt Count 187 (150-450) k/uL Neutrophils % 61 % Lymphocytes % 27 % Monocytes % 6 % Eosinophils % 5 % Basophils % 0 % Neutrophils # 4.9 (1.3-7.7) k/uL Lymphocytes # 2.2 (1.0-4.8) k/uL Monocytes # 0.5 (0-1.0) k/uL Eosinophils # 0.4 (0-0.7) k/uL Basophils # 0.0 (0-0.2) k/uL PT (9.0-12.0) sec INR (<1.2) APTT (22.0-30.0) sec D-Dimer (<0.60) mg/L FEU Sodium 139 (137-145) mmol/L Potassium 4.5 (3.5-5.1) mmol/L Chloride 102 (98-107) mmol/L Carbon Dioxide 24 (22-30) mmol/L Anion Gap 13 mmol/L BUN 12 (9-20) mg/dL Creatinine 1.10 (0.66-1.25) mg/dL Est GFR (CKD-EPI)AfAm 81 (>60 ml/min/1.73 sqM) Est GFR (CKD-EPI)NonAf 70 (>60 ml/min/1.73 sqM) Glucose 158 H (74-99) mg/dL Calcium 9.3 (8.4-10.2) mg/dL Magnesium 1.8 (1.6-2.3) mg/dL Total Bilirubin 0.4 (0.2-1.3) mg/dL AST 18 (17-59) U/L ALT 21 (21-72) U/L Alkaline Phosphatase 57 (38-126) U/L Total Creatine Kinase 147 (55-170) U/L CK-MB (CK-2) 5.0 H* (0.0-2.4) ng/mL CK-MB (CK-2) Rel Index 3.4 Troponin I <0.012 (0.000-0.034) ng/mL NT-Pro-B Natriuret Pep pg/mL Total Protein 6.9 (6.3-8.2) g/dL Albumin 4.1 (3.5-5.0) g/dL Amylase 106 (30-110) U/L Lipase 91 (23-300) U/L 04/10/18 04/10/18 Range/Units 19:45 19:45 WBC (3.8-10.6) k/uL RBC (4.30-5.90) m/uL Hgb (13.0-17.5) gm/dL Hct (39.0-53.0) % MCV (80.0-100.0) fL MCH (25.0-35.0) pg MCHC (31.0-37.0) g/dL RDW (11.5-15.5) % Plt Count (150-450) k/uL Neutrophils % % Lymphocytes % % Monocytes % % Eosinophils % % Basophils % % Neutrophils # (1.3-7.7) k/uL Lymphocytes # (1.0-4.8) k/uL Monocytes # (0-1.0) k/uL Eosinophils # (0-0.7) k/uL Basophils # (0-0.2) k/uL PT 10.0 (9.0-12.0) sec INR 1.0 (<1.2) APTT 24.0 (22.0-30.0) sec D-Dimer 0.55 (<0.60) mg/L FEU Sodium (137-145) mmol/L Potassium (3.5-5.1) mmol/L Chloride (98-107) mmol/L Carbon Dioxide (22-30) mmol/L Anion Gap mmol/L BUN (9-20) mg/dL Creatinine (0.66-1.25) mg/dL Est GFR (CKD-EPI)AfAm (>60 ml/min/1.73 sqM) Est GFR (CKD-EPI)NonAf (>60 ml/min/1.73 sqM) Glucose (74-99) mg/dL Calcium (8.4-10.2) mg/dL Magnesium (1.6-2.3) mg/dL Total Bilirubin (0.2-1.3) mg/dL AST (17-59) U/L ALT (21-72) U/L Alkaline Phosphatase (38-126) U/L Total Creatine Kinase (55-170) U/L CK-MB (CK-2) (0.0-2.4) ng/mL CK-MB (CK-2) Rel Index Troponin I (0.000-0.034) ng/mL NT-Pro-B Natriuret Pep 158 pg/mL Total Protein (6.3-8.2) g/dL Albumin (3.5-5.0) g/dL Amylase (30-110) U/L Lipase (23-300) U/L - Radiology Data Interpreted by me: Chest x-ray shows no acute process. Disposition Clinical Impression: Chest pain Disposition: ADMITTED IP TO THIS [facility] Referrals: Hawk Gaona MD [Primary Care Provider] - 1-2 days Decision Time: 21:27
[2017-09-13] MEDS ORDERED: ASPIRIN 81 MG PO STA (21:28)
[2017-09-13] MEDS ORDERED: NITROGLYCERIN SL TABS 0.4 MG TAB SUBLINGUAL PRN (21:28)
--- NOTE | 2017-09-13 21:31 | XR ---
EXAMINATION TYPE: XR chest 2V DATE OF EXAM: 09/13/2017 COMPARISON: 12/24/2016 HISTORY: Chest pain TECHNIQUE: Frontal and lateral views of the chest are obtained. FINDINGS: There is no heart failure nor confluent pneumonic infiltrate. Heart and mediastinum are wi thin normal limits. Costophrenic angles are clear. Bony thorax is intact. IMPRESSION: No active cardiopulmonary disease. There is clearing of the mild linear density at the l eft lung base compared to old exam.
[2017-09-13 22:46] VITALS: RESP 16
[2017-09-14] MEDS ORDERED: HYDROcodone/APAP 7.5-325MG 1 EACH TAB PO PRN (00:02)
[2017-09-14 00:30] VITALS: BMI 28.5
[2017-09-14] MEDS: IBUPROFEN 800 MG TAB PO SCH ×2 (01:24→15:59)
[2017-09-14] MEDS: NITROGLYCERIN OINT 1 INCH/GM PACKET TOPICAL SCH ×3 (01:24→12:03)
[2017-09-14] MEDS: busPIRone HCl 10 MG TAB PO SCH ×2 (01:24→11:55)
[2017-09-14] MEDS: CARVEDILOL 6.25 MG TAB PO SCH ×2 (01:25→11:55)
[2017-09-14 01:58] LABS: Creatine Kinase 124 U/L (55-170)
[2017-09-14 02:10] LABS: Troponin I <0.012 ng/mL (0.000-0.034)
[2017-09-14 02:12] LABS: Creatine Kinase MB 4.5 ng/mL (0.0-2.4)
[2017-09-14 06:42] LABS: Glucose,Whole Blood 120 mg/dL (75-99)
[2017-09-14 08:11] LABS: Creatine Kinase 117 U/L (55-170)
[2017-09-14 08:13] LABS: Cholesterol 234 mg/dL (<200); HDL Cholesterol 54 mg/dL (40-60); LDL Cholesterol,Calculated 140 mg/dL (0-99); Triglycerides 198 mg/dL (<150)
[2017-09-14 08:24] LABS: Troponin I <0.012 ng/mL (0.000-0.034)
[2017-09-14 08:42] LABS: Creatine Kinase MB 4.4 ng/mL (0.0-2.4)
[2017-09-14] MEDS ORDERED: CITALOPRAM HYDROBROMIDE 20 MG TAB PO SCH (09:00)
[2017-09-14] MEDS ORDERED: ASPIRIN 325 MG TAB PO SCH (09:00)
[2017-09-14] MEDS ORDERED: DICYCLOMINE 10 MG CAP PO SCH (09:00)
[2017-09-14] MEDS ORDERED: metFORMIN 500 MG TAB PO SCH (09:00)
[2017-09-14] MEDS ORDERED: MONTELUKAST 10 MG TAB PO SCH (09:00)
[2017-09-14] MEDS ORDERED: LISINOPRIL 20 MG TAB PO SCH (09:00)
[2017-09-14] MEDS ORDERED: FAMOTIDINE 20 MG TAB PO SCH (09:00)
[2017-09-14] MEDS ORDERED: MAGNESIUM OXIDE 400 MG TAB PO SCH (09:00)
[2017-09-14] MEDS ORDERED: TAMSULOSIN 0.4 MG CAP.ER.24H PO SCH (09:00)
--- NOTE | 2017-09-14 10:46 | P.CRDCN ---
History of Present Illness History of present illness: Patient admitted with cough and fever chills chest discomfort. He has normal cardiac enzymes normal ECG blood pressure is quite elevated From a cardiac standpoint I would add a diuretic, Dyazide to his current regimen. Follow Dr. Jaramillo as an outpatient Past Medical History Past Medical History: Diabetes Mellitus, GERD/Reflux, Hyperlipidemia, Hypertension, Sleep Apnea/CPAP/BIPAP, Syncope Additional Past Medical History / Comment(s): 11/22/14 Pt direct admission to [facility]. He is to have Ben fundoplasty today and has no water at home. Other HX: IDDM, ERIKA cannot tolerate CPAP, varicose veins, hiatal hernia, constipation occas bleeding with stools, hemorrhoids, steroid injections with in 6 mos, current tooth infection being tx with antibiotics-has taken 2 days of ABX. History of Any Multi-Drug Resistant Organisms: None Reported Past Surgical History: Back Surgery, Cholecystectomy, Heart Catheterization, Hernia Repair Additional Past Surgical History / Comment(s): arthroscopy right knee. bilateral cataracts,jeancarlos inguinal hernia repair Past Anesthesia/Blood Transfusion Reactions: No Reported Reaction Past Psychological History: Anxiety Additional Psychological History / Comment(s): Pt resides with his spouse. He is independent. Smoking Status: Never smoker Past Alcohol Use History: Rare Past Drug Use History: None Reported - Past Family History Mother Additional Family Medical History / Comment(s): HAD PACEMAKER, age 86 Father Family Medical History: Dementia Medications and Allergies Home Medications Medication Instructions Recorded Confirmed Type Hydrocodone/Acetaminophen 1 tab PO TID PRN 05/01/14 09/13/17 History [Hydrocodon-Acetaminoph 7.5-325] Montelukast [Singulair] 10 mg PO DAILY 05/01/14 09/13/17 History busPIRone HCl [Buspar] 10 mg PO BID 05/01/14 09/13/17 History Tamsulosin HCl [Flomax] 0.4 mg PO DAILY 12/06/16 09/13/17 History Carvedilol [Coreg] 6.25 mg PO BID 09/13/17 09/13/17 History Citalopram Hydrobromide [CeleXA] 20 mg PO DAILY 09/13/17 09/13/17 History Dicyclomine [Bentyl] 10 mg PO DAILY 09/13/17 09/13/17 History Ibuprofen [Motrin] 800 mg PO BID 09/13/17 09/13/17 History Lisinopril [Prinivil] 20 mg PO DAILY 09/13/17 09/13/17 History Magnesium Oxide [Mag-Ox] 400 mg PO DAILY 09/13/17 09/13/17 History Multivitamins, Thera [Multivitamin 1 tab PO DAILY 09/13/17 09/13/17 History (formulary)] Ranitidine HCl [Zantac] 150 mg PO DAILY 09/13/17 09/13/17 History metFORMIN HCL [Glucophage] 500 mg PO DAILY 09/13/17 09/13/17 History Allergies Allergy/AdvReac Type Severity Reaction Status Date / Time dipyridamole AdvReac Nausea & Verified 09/13/17 21:22 [From Persantine] Vomiting Iodinated Contrast- Oral and AdvReac Nausea & Verified 09/13/17 21:22 IV Dye Vomiting [Iodinated Contrast Media - IV Dye] morphine AdvReac Nausea & Verified 09/13/17 21:22 Vomiting Physical Exam Vitals: Vital Signs Temp Pulse Pulse Resp BP BP Pulse Ox 09/14/17 08:00 56 L 16 09/14/17 07:56 98.5 F 56 L 16 193/95 96 09/14/17 07:14 60 16 09/14/17 04:00 98.4 F 60 16 179/97 96 09/14/17 00:12 181/90 09/14/17 00:00 59 L 16 09/13/17 22:45 97.7 F 64 16 182/88 93 L 09/13/17 22:28 98 F 70 18 164/80 98 09/13/17 21:40 20 09/13/17 19:19 97.1 F L 64 18 168/79 98 Intake and Output 09/13/17 09/14/17 09/14/17 22:59 06:59 14:59 Other: Voiding Method Toilet Toilet Weight 90.265 kg Results 09/13/17 19:45 09/13/17 19:45 Cardiac Enzymes 09/13/17 09/13/17 09/14/17 Range/Units 19:45 19:45 01:26 AST 18 (17-59) U/L CK-MB (CK-2) 5.0 H* 4.5 H* (0.0-2.4) ng/mL Troponin I <0.012 <0.012 (0.000-0.034) ng/mL 09/14/17 Range/Units 07:05 AST (17-59) U/L CK-MB (CK-2) 4.4 H* (0.0-2.4) ng/mL Troponin I <0.012 (0.000-0.034) ng/mL Coagulation 09/13/17 Range/Units 19:45 PT 10.0 (9.0-12.0) sec APTT 24.0 (22.0-30.0) sec Lipids 09/14/17 Range/Units 07:05 Triglycerides 198 H (<150) mg/dL Cholesterol 234 H (<200) mg/dL HDL Cholesterol 54 (40-60) mg/dL CBC 09/13/17 Range/Units 19:45 WBC 8.1 (3.8-10.6) k/uL RBC 4.51 (4.30-5.90) m/uL Hgb 14.2 (13.0-17.5) gm/dL Hct 41.1 (39.0-53.0) % Plt Count 187 (150-450) k/uL Comprehensive Metabolic Panel 09/13/17 Range/Units 19:45 Sodium 139 (137-145) mmol/L Potassium 4.5 (3.5-5.1) mmol/L Chloride 102 (98-107) mmol/L Carbon Dioxide 24 (22-30) mmol/L BUN 12 (9-20) mg/dL Creatinine 1.10 (0.66-1.25) mg/dL Glucose 158 H (74-99) mg/dL Calcium 9.3 (8.4-10.2) mg/dL AST 18 (17-59) U/L ALT 21 (21-72) U/L Alkaline Phosphatase 57 (38-126) U/L Total Protein 6.9 (6.3-8.2) g/dL Albumin 4.1 (3.5-5.0) g/dL Current Medications Generic Name Dose Route Start Last Admin Trade Name Freq PRN Reason Stop Dose Admin Hydrocodone Bitart/Acetaminophen 1 each 09/14/17 00:02 09/14/17 04:22 [place] 7.5-325 PO 1 each TID PRN Administration Pain Aspirin 325 mg 04/11/18 09:00 Aspirin PO DAILY [facility] Buspirone HCl 10 mg 09/14/17 00:15 09/14/17 01:24 Buspar PO Not Given BID [facility] Carvedilol 6.25 mg 09/14/17 00:15 09/14/17 01:25 Coreg PO 6.25 mg BID [facility] Administration Citalopram Hydrobromide 20 mg 09/14/17 09:00 Celexa PO DAILY [facility] Dicyclomine HCl 10 mg 09/14/17 09:00 Bentyl PO DAILY [facility] Famotidine 20 mg 09/14/17 09:00 Pepcid PO DAILY [facility] Ibuprofen 800 mg 09/14/17 00:15 09/14/17 01:24 Motrin PO Not Given BID [facility] Lisinopril 20 mg 09/14/17 09:00 Zestril PO DAILY [facility] Magnesium Oxide 400 mg 09/14/17 09:00 Mag-Ox PO DAILY [facility] Metformin HCl 500 mg 09/14/17 09:00 Glucophage PO DAILY [facility] Montelukast Sodium 10 mg 09/14/17 09:00 Singulair PO DAILY [facility] Multivitamins 1 each 09/14/17 12:00 Theragran PO DAILY@1200 [facility] Nitroglycerin 1 inch 09/14/17 00:00 09/14/17 08:57 Nitro-Bid Oint TOPICAL Not Given Q6HR [facility] Nitroglycerin 0.4 mg 09/13/17 21:28 Nitrostat SUBLINGUAL Q5M PRN Chest Pain Sodium Chloride 10 ml 09/14/17 09:00 Saline Flush IV BID [facility] Tamsulosin HCl 0.4 mg 09/14/17 09:00 Flomax PO DAILY [facility] Intake and Output 09/13/17 09/14/17 09/14/17 22:59 06:59 14:59 Other: Voiding Method Toilet Toilet Weight 90.265 kg 09/13/17 19:45 09/13/17 19:45
[2017-09-14] MEDS ORDERED: TRIAMTERENE-HCTZ 37.5-25MG 1 EACH CAP PO SCH (11:00)
[2017-09-14 11:54] VITALS: PULSE 58; TEMP 98.1
[2017-09-14] MEDS: MULTIVITAMINS, THERA 1 EACH TAB PO SCH ×2 (11:55→11:56)
[2017-09-14 12:11] LABS: Glucose,Whole Blood 132 mg/dL (75-99)
[2017-09-14 14:30] VITALS: BP 151/79
--- NOTE | 2017-09-14 15:24 | P.CRDCN ---
History of Present Illness Consult date: 09/14/17 History of present illness: Mr. Taylor is a pleasant 66-year-old male past medical history significant for diabetes mellitus, dyslipidemia, hypertension, sleep apnea and gastroesophageal reflux disease. He denies history of coronary artery disease. Follows with Dr. Jaramillo as an outpatient. We have been asked to see him in consultation for complaints of chest pain. He states he has been coughing, fever , chills and chest discomfort for the previous few days. The chest discomfort is in the mid-sternal region described as a burning sensation with associated shortness of breath. The pain is brought on when he coughs and has been intermittent for the previous 2 days. He denies palpitations, nausea, vomiting, PND or orthopnea. He most recently underwent Lexiscan stress test in January 2017 which was negative for reversible cardiac ischemia. Blood pressures have been elevated since arrival with systolic as high as 190. EKG on arrival reveals sinus mechanism with no acute ST or T-wave abnormalities with evidence of left anterior fasicular block. No change from previous EKG. Chest xray is negative for an acute cardiopulmonary process with evidence of clearing mild linear density at the left lung risk of peripheral exam. Laboratory data reviewed, LDL 140, HDL 54, triglycerides 198, total cholesterol 234, cardiac enzymes negative 3, potassium 4.5, magnesium 1.8. Current cardiac medications include carvedilol 6.25 mg twice a day, lisinopril 20 mg daily. Most recent echocardiogram reveals preserved left ventricular systolic function with ejection fraction 60-65%. Review of Systems At the time of my exam: CONSTITUTIONAL: Denies fever. Denies chills. EYES: Denies blurred vision. Denies vision changes. Denies eye pain. EARS, NOSE, MOUTH & THROAT: Denies headache. Denies sore throat. Denies ear pain. CARDIOVASCULAR: Denies chest pain. Denies shortness of breath. Denies orthopnea. Denies PND. Denies palpitations. RESPIRATORY: Denies cough. GASTROINTESTINAL: Denies abdominal pain. Denies diarrhea. Denies constipation. Denies nausea. Denies vomiting. MUSCULOSKELETAL: Denies myalgias. INTEGUMENTARY: Denies pruitis. Denies rash. NEUROLOGIC: Denies numbness. Denies tingling. Denies weakness. PSYCHIATRIC: Denies anxiety. Denies depression. ENDOCRINE: Denies fatigue. Denies weight change. Denies polydipsia. Denies polyurina. GENITOURINARY: Denies burning, hematuria or urgency with micturation. HEMATOLOGIC: Denies history of anemia. Denies bleeding. Past Medical History Past Medical History: Diabetes Mellitus, GERD/Reflux, Hyperlipidemia, Hypertension, Sleep Apnea/CPAP/BIPAP, Syncope Additional Past Medical History / Comment(s): 11/22/14 Pt direct admission to [facility]. He is to have Ben fundoplasty today and has no water at home. Other HX: IDDM, ERIKA cannot tolerate CPAP, varicose veins, hiatal hernia, constipation occas bleeding with stools, hemorrhoids, steroid injections with in 6 mos, current tooth infection being tx with antibiotics-has taken 2 days of ABX. History of Any Multi-Drug Resistant Organisms: None Reported Past Surgical History: Back Surgery, Cholecystectomy, Heart Catheterization, Hernia Repair Additional Past Surgical History / Comment(s): arthroscopy right knee. bilateral cataracts,jeancarlos inguinal hernia repair Past Anesthesia/Blood Transfusion Reactions: No Reported Reaction Past Psychological History: Anxiety Additional Psychological History / Comment(s): Pt resides with his spouse. He is independent. Smoking Status: Never smoker Past Alcohol Use History: Rare Past Drug Use History: None Reported - Past Family History Mother Additional Family Medical History / Comment(s): HAD PACEMAKER, age 86 Father Family Medical History: Dementia Medications and Allergies Home Medications Medication Instructions Recorded Confirmed Type Hydrocodone/Acetaminophen 1 tab PO TID PRN 05/01/14 09/13/17 History [Hydrocodon-Acetaminoph 7.5-325] Montelukast [Singulair] 10 mg PO DAILY 05/01/14 09/13/17 History busPIRone HCl [Buspar] 10 mg PO BID 05/01/14 09/13/17 History Tamsulosin HCl [Flomax] 0.4 mg PO DAILY 12/06/16 09/13/17 History Carvedilol [Coreg] 6.25 mg PO BID 09/13/17 09/13/17 History Citalopram Hydrobromide [CeleXA] 20 mg PO DAILY 09/13/17 09/13/17 History Dicyclomine [Bentyl] 10 mg PO DAILY 09/13/17 09/13/17 History Ibuprofen [Motrin] 800 mg PO BID 09/13/17 09/13/17 History Lisinopril [Prinivil] 20 mg PO DAILY 09/13/17 09/13/17 History Magnesium Oxide [Mag-Ox] 400 mg PO DAILY 09/13/17 09/13/17 History Multivitamins, Thera [Multivitamin 1 tab PO DAILY 09/13/17 09/13/17 History (formulary)] Ranitidine HCl [Zantac] 150 mg PO DAILY 09/13/17 09/13/17 History metFORMIN HCL [Glucophage] 500 mg PO DAILY 09/13/17 09/13/17 History Allergies Allergy/AdvReac Type Severity Reaction Status Date / Time dipyridamole AdvReac Nausea & Verified 09/13/17 21:22 [From Persantine] Vomiting Iodinated Contrast- Oral and AdvReac Nausea & Verified 09/13/17 21:22 IV Dye Vomiting [Iodinated Contrast Media - IV Dye] morphine AdvReac Nausea & Verified 09/13/17 21:22 Vomiting Physical Exam Vitals: Vital Signs Temp Pulse Pulse Resp BP BP Pulse Ox 09/14/17 14:29 98.1 F 58 L 16 151/79 93 L 09/14/17 12:00 58 L 16 09/14/17 11:52 98.1 F 58 L 16 190/106 95 09/14/17 08:00 56 L 16 09/14/17 07:56 98.5 F 56 L 16 193/95 96 09/14/17 07:14 60 16 09/14/17 04:00 98.4 F 60 16 179/97 96 09/14/17 00:12 181/90 09/14/17 00:00 59 L 16 09/13/17 22:45 97.7 F 64 16 182/88 93 L 09/13/17 22:28 98 F 70 18 164/80 98 09/13/17 21:40 20 09/13/17 19:19 97.1 F L 64 18 168/79 98 Intake and Output 09/14/17 09/14/17 09/14/17 06:59 14:59 22:59 Intake Total 240 Balance 240 Intake: Oral 240 Other: Voiding Method Toilet Toilet # Voids 3 Blood pressure 193/95 heart rate 56 afebrile maintaining oxygen saturation on room air GENERAL: This is a 66-year-old male in no apparent distress at the time of my examination. HEENT: Head is atraumatic, normocephalic. Pupils are equal, round. Sclerae anicteric. Conjunctivae are clear. Mucous membranes of the mouth are moist. Neck is supple. There is no jugular venous distention. No carotid bruit is heard. LUNGS: Clear to auscultation no wheezes, rales or rhonchi. No chest wall tenderness is noted on palpation or with deep breathing. HEART: Regular rate and rhythm without murmurs, rubs or gallops. S1 and S2 heard. ABDOMEN: Soft, nontender. Bowel sounds are heard. No organomegaly noted. EXTREMITIES: No evidence of peripheral edema and no calf tenderness noted. VASCULAR: Radial and dorsalis pedis pulses palpated, no evidence of clubbing. NEUROLOGIC: Patient is awake, alert and oriented x3. Results 09/13/17 19:45 09/13/17 19:45 Cardiac Enzymes 09/13/17 09/13/17 09/14/17 Range/Units 19:45 19:45 01:26 AST 18 (17-59) U/L CK-MB (CK-2) 5.0 H* 4.5 H* (0.0-2.4) ng/mL Troponin I <0.012 <0.012 (0.000-0.034) ng/mL 09/14/17 Range/Units 07:05 AST (17-59) U/L CK-MB (CK-2) 4.4 H* (0.0-2.4) ng/mL Troponin I <0.012 (0.000-0.034) ng/mL Coagulation 09/13/17 Range/Units 19:45 PT 10.0 (9.0-12.0) sec APTT 24.0 (22.0-30.0) sec Lipids 09/14/17 Range/Units 07:05 Triglycerides 198 H (<150) mg/dL Cholesterol 234 H (<200) mg/dL HDL Cholesterol 54 (40-60) mg/dL CBC 09/13/17 Range/Units 19:45 WBC 8.1 (3.8-10.6) k/uL RBC 4.51 (4.30-5.90) m/uL Hgb 14.2 (13.0-17.5) gm/dL Hct 41.1 (39.0-53.0) % Plt Count 187 (150-450) k/uL Comprehensive Metabolic Panel 09/13/17 Range/Units 19:45 Sodium 139 (137-145) mmol/L Potassium 4.5 (3.5-5.1) mmol/L Chloride 102 (98-107) mmol/L Carbon Dioxide 24 (22-30) mmol/L BUN 12 (9-20) mg/dL Creatinine 1.10 (0.66-1.25) mg/dL Glucose 158 H (74-99) mg/dL Calcium 9.3 (8.4-10.2) mg/dL AST 18 (17-59) U/L ALT 21 (21-72) U/L Alkaline Phosphatase 57 (38-126) U/L Total Protein 6.9 (6.3-8.2) g/dL Albumin 4.1 (3.5-5.0) g/dL Current Medications Generic Name Dose Route Start Last Admin Trade Name Freq PRN Reason Stop Dose Admin Hydrocodone Bitart/Acetaminophen 1 each 09/14/17 00:02 09/14/17 04:22 [place] 7.5-325 PO 1 each TID PRN Administration Pain Aspirin 325 mg 09/14/17 09:00 09/14/17 12:02 Aspirin PO 325 mg DAILY TACOS Administration Buspirone HCl 10 mg 09/14/17 00:15 09/14/17 11:55 Buspar PO 10 mg BID TACOS Administration Carvedilol 6.25 mg 09/14/17 00:15 09/14/17 11:55 Coreg PO 6.25 mg BID TACOS Administration Citalopram Hydrobromide 20 mg 09/14/17 09:00 09/14/17 11:55 Celexa PO 20 mg DAILY TACOS Administration Dicyclomine HCl 10 mg 09/14/17 09:00 09/14/17 11:55 Bentyl PO 10 mg DAILY TACOS Administration Famotidine 20 mg 09/14/17 09:00 09/14/17 11:55 Pepcid PO 20 mg DAILY TACOS Administration Ibuprofen 800 mg 09/14/17 00:15 09/14/17 01:24 Motrin PO Not Given BID [facility] Lisinopril 20 mg 09/14/17 09:00 09/14/17 11:56 Zestril PO 20 mg DAILY TACOS Administration Magnesium Oxide 400 mg 09/14/17 09:00 09/14/17 11:55 Mag-Ox PO 400 mg DAILY TACOS Administration Metformin HCl 500 mg 09/14/17 09:00 09/14/17 11:56 Glucophage PO 500 mg DAILY TACOS Administration Montelukast Sodium 10 mg 09/14/17 09:00 09/14/17 11:56 Singulair PO 10 mg DAILY TACOS Administration Multivitamins 1 each 09/14/17 12:00 09/14/17 11:56 Theragran PO 1 each DAILY@1200 TACOS Administration Nitroglycerin 1 inch 09/14/17 00:00 09/14/17 12:03 Nitro-Bid Oint TOPICAL Not Given Q6HR [facility] Nitroglycerin 0.4 mg 09/13/17 21:28 Nitrostat SUBLINGUAL Q5M PRN Chest Pain Sodium Chloride 10 ml 09/14/17 09:00 09/14/17 11:58 Saline Flush IV 10 ml BID TACOS Administration Tamsulosin HCl 0.4 mg 09/14/17 09:00 09/14/17 11:56 Flomax PO 0.4 mg DAILY TACOS Administration Triamterene/HCTZ 1 each 09/14/17 11:00 09/14/17 11:57 Dyazide PO 1 each DAILY TACOS Administration Intake and Output 09/14/17 09/14/17 09/14/17 06:59 14:59 22:59 Intake Total 240 Balance 240 Intake: Oral 240 Other: Voiding Method Toilet Toilet # Voids 3 09/13/17 19:45 09/13/17 19:45 Assessment and Plan Assessment: ASSESSMENT 1. Chest pain, atypical. An acute coronary event has been ruled out with negative cardiac enzymes and no EKG evidence of ischemia. 2. Hypertension, uncontrolled 3. Dyslipidemia 4. Diabetes mellitus 5. Sleep apnea 6. Gastroesophageal reflux disease PLAN Add aspirin 81 mg daily and atorvastatin 40 mg daily to his daily regimen. Dyazide has been added for better blood pressure control. Can consider increasing lisinopril if needed as well. No further cardiac work-up. Follow up with Dr. Jaramillo in 2-3 weeks. Thank you kindly for this consultation. Nurse Practitioner note has been reviewed, I agree with a documented findings and plan of care. Patient was seen and examined.
[2017-09-14] MEDS ORDERED: ATORVASTATIN 40 MG TAB PO SCH (21:00)
--- NOTE | 2017-09-15 08:09 | ECHOF ---
Referral Reason:cp/htn MEASUREMENTS -------- HEIGHT: 152.4 cm WEIGHT: 90.3 kg BP: 170/90 IVSd: 1.5 cm (0.6 - 1.1) LVIDd: 5.1 cm (3.9 - 5.3) LVPWd: 1.3 cm (0.6 - 1.1) IVSs: 1.7 cm LVIDs: 3.6 cm LVPWs: 1.8 cm LA Diam: 3.7 cm (2.7 - 3.8) LAESV Index (A-L): 43.43 ml/m Ao Diam: 3.2 cm (2.0 - 3.7) AV Cusp: 2.0 cm (1.5 - 2.6) LA Diam: 3.8 cm (2.7 - 3.8) MV EXCURSION: 16.312 mm (> 18.000) MV EF SLOPE: 39 mm/s (70 - 150) EPSS: 1.4 cm MV E Nicolas: 0.45 m/s MV DecT: 254 ms MV A Nicolas: 0.99 m/s MV E/A Ratio: 0.46 RAP: 5.00 mmHg RVSP: 28.04 mmHg FINDINGS -------- Sinus rhythm. This was a technically good study. The left ventricular size is normal. There is moderate concentric left ventricular hypertrophy. O verall left ventricular systolic function is normal with, an EF between 55 - 60 %. The right ventricle is normal in size. The left atrial size is normal. LA is moderately dilated 34-39 ml/m2 The right atrial size is normal. The aortic valve is trileaflet, and appears structurally normal. No aortic stenosis or regurgitation. There is trace mitral regurgitation. Mild tricuspid regurgitation present. There is no evidence of pulmonary hypertension. The right v entricular systolic pressure, as measured by Doppler, is 28.04mmHg. Trace/mild (physiologic) pulmonic regurgitation. The aortic root size is normal. There is no pericardial effusion. CONCLUSIONS -------- 1. The left ventricular size is normal. 2. There is moderate concentric left ventricular hypertrophy. 3. Overall left ventricular systolic function is normal with, an EF between 55 - 60 %. 4. LA is moderately dilated 34-39 ml/m2 5. The aortic valve is trileaflet, and appears structurally normal. No aortic stenosis or regurgitati on. 6. There is trace mitral regurgitation. 7. Mild tricuspid regurgitation present. 8. There is no evidence of pulmonary hypertension. 9. The right ventricular systolic pressure, as measured by Doppler, is 28.04mmHg. 10. Trace/mild (physiologic) pulmonic regurgitation. 11. The aortic root size is normal. 12. There is no pericardial effusion. CHILD DEVELOPMENT CONSULTANT: Kaylan Hurtado RDCS
[2017-09-15] MEDS ORDERED: ASPIRIN 81 MG PO SCH (09:00)
--- NOTE | 2017-10-09 18:28 | HP ---
HISTORY AND PHYSICAL CHIEF COMPLAINT: Chest pain. HISTORY OF PRESENT ILLNESS: 66-year-old white male, admitted by [facility] for chest discomfort and came to the ER. He was having cough, upper respiratory symptoms. He had more tightness, discomfort in the sternum, some upper back pain with cough, waxing, waning, with mild shortness of breath, somewhat sweaty. MEDICATIONS: Home medicines include: 1. Neurontin. 2. [place]. 3. Singular. 4. Verapamil ER. 5. BuSpar. 6. Flomax. 7. Zoloft. 8. Coreg. 9. Celexa. 10.Bentyl. 11.Motrin. 12.Prinivil. 13.Mag oxide. 14.Multivitamin. 15.Zantac. 16.Glucophage. ALLERGIES: TO IODINE, MORPHINE. REVIEW OF SYSTEMS: Fourteen point review of systems negative. PAST MEDICAL HISTORY: Diabetes mellitus, GERD, dyslipidemia, hypertension, sleep apnea, syncope, varicose veins, hiatal hernia, insulin-dependent diabetes mellitus, obstructive sleep apnea. SURGERIES: Back surgery, cholecystectomy, heart catheterization, hernia repair, arthroscopy to the right knee, bilateral cataracts, inguinal hernia repair. SOCIAL HISTORY: Never smoker. No alcohol. No illicit drugs. FAMILY HISTORY: Mother pacemaker. Father with dementia. PHYSICAL EXAM: Vital signs reviewed. Cardiovascular S1-S2. Lungs transmitted upper airway sounds. GASTROENTEROLOGY: Soft. Hematology: Negative Homans. Psych: Fair mood and affect. NEUROLOGIC: Alert and oriented x3. Temp 97.1, pulse 60 to 64, respiratory rate 12 to 18, blood pressure 160s over 70s. ASSESSMENT: 1. Atypical chest pain. 2. Rule out myocardial infarction. 3. Insulin-dependent diabetes mellitus. 4. Hypertension. Continue next 24-48 hours rule out myocardial infarction. We will get Cardiology consult. Please see further orders. MMODL / IJN: [id number] /
--- NOTE | 2017-10-09 19:28 | DS ---
DISCHARGE SUMMARY DATE OF ADMISSION: 09/13/2017. DISCHARGE DATE: 09/14/2017. DISCHARGE MEDICATIONS: 1. Singular 10 mg daily. 2. BuSpar 10 mg b.i.d. 3. Flomax 0.4 mg daily. 4. Zantac 150 daily. 5. Multivitamin daily. 6. Metformin 500 daily. 7. Mag oxide 400 mg daily. 8. Prinivil 20 mg daily. 9. Bentyl 10 mg daily. 10.Celexa 20 mg daily. 11.Carvedilol 6.25 b.i.d. CONDITION: Stable. PROGNOSIS: Guarded. Ambulate as tolerated. HOSPITAL COURSE: This is a white male who was admitted to the hospital with atypical chest pain. Cardiology saw the patient, who ruled him out for myocardial infarction. Echocardiogram was done. Cardiology consultation was done. They cleared him for discharge at which time he was sent home to follow up as outpatient with close control of his diabetes as an outpatient. He is ruled out for myocardial infarction and hypertension accelerated and was treated, sleep apnea and GERD were treated also. Aspirin was added. Dyazide was given for blood pressure control and possible lisinopril. Follow up in office in a week. MMODL / IJN: [id number] /
== END 2017-09-14 16:55 | disposition home or self-care (01) ==
LOC: EC 19:17 → 3OBS 21:28
PROVIDERS: ADMIT Family Medicine; ATTEND Family Medicine
DX: R07.89 Other chest pain (principal); R05 Cough; I10 Essential (primary) hypertension; E11.9 Type 2 diabetes mellitus without complications; E78.5 Hyperlipidemia, unspecified; K21.9 Gastro-esophageal reflux disease without esophagitis; F41.9 Anxiety disorder, unspecified; G47.33 Obstructive sleep apnea (adult) (pediatric); I83.90 Asymptomatic varicose veins of unspecified lower extremity; Z79.84 Long term (current) use of oral hypoglycemic drugs; Z79.899 Other long term (current) drug therapy; Z79.1 Long term (current) use of non-steroidal anti-inflammatories (NSAID); Z88.5 Allergy status to narcotic agent; Z88.8 Allergy status to other drugs, medicaments and biological substances; Z91.041 Radiographic dye allergy status; Z81.8 Family history of other mental and behavioral disorders; Z82.49 Family history of ischemic heart disease and other diseases of the circulatory system
CPT/HCPCS: 99285 ×2; 36415; 93005; 93306; 85379; 83880; 80061; 80053; 82150; 82550 ×2; 82553 ×2; 83690; 83735; 84484 ×2; 85025; 85610; 85730; 87502; 71046; G0378 ×2

== ENCOUNTER 2017-09-26 16:57 | Inpatient (IN) | payer MEDICARE, OTHER ==
[2017-09-26] MEDS ORDERED: SODIUM CHLORIDE 0.9% 1,000 ML IV ONE (17:09)
[2017-09-26 17:21] LABS: Basophils % (A) 0 %; Eosinophils # (A) 0.4 k/uL (0-0.7); Eosinophils % (A) 4 %; HCT 43.4 % (39.0-53.0); HGB 15.2 gm/dL (13.0-17.5); Lymphocytes % (A) 29 %; MCH 31.9 pg (25.0-35.0); MCV 91.3 fL (80.0-100.0); Mean Platelet Volume 8.8; Monocytes # (A) 0.5 k/uL (0-1.0); Monocytes % (A) 5 %; Neutrophils # (A) 6.1 k/uL (1.3-7.7); Neutrophils % (A) 60 %; Platelet Count 204 k/uL (150-450); RBC 4.76 m/uL (4.30-5.90); RDW 12.8 % (11.5-15.5); WBC 10.2 k/uL (3.8-10.6)
[2017-09-26 17:21] LABS: Glucose,Whole Blood 228 mg/dL (75-99)
--- NOTE | 2017-09-26 17:31 | ED ---
Syncope HPI - General Chief Complaint: Syncope Stated Complaint: Weakness Time Seen by Provider: 09/26/17 17:00 Source: patient, EMS Mode of arrival: EMS Limitations: no limitations - History of Present Illness Initial Comments: This is a 66-year-old male with a history of hypertension and diabetes who presents emergent department for lightheadedness and syncopal episode. The patient states that he woke up late today and took his medications late. He states that about an hour after taking his medications he was eating some ravioli when suddenly became very dizzy. He admits to feeling sweaty and nauseous. He states that he did have an episode where he passed out. He states that his caught him and he did not hit his head. He states that he denies any chest pain or shortness of breath during this episode however does admit to some chest tightness. He admits that about one week ago his primary care doctor did add a blood pressure medication however he is unsure what medication he added. He states that he's had something similar to this in the past and it was because he was on verapamil which was discontinued. He denies any blood in the stool or dark stools. He states that he did have one episode of vomiting however got Zofran in route and feels improved. Denies any focal weakness. No other acute complaints at this time. - Related Data Home Medications Medication Instructions Recorded Confirmed Hydrocodone/Acetaminophen 1 tab PO TID PRN 05/01/14 09/26/17 [Hydrocodon-Acetaminoph 7.5-325] Montelukast [Singulair] 10 mg PO DAILY 05/01/14 09/26/17 busPIRone HCl [Buspar] 10 mg PO BID 05/01/14 09/26/17 Tamsulosin HCl [Flomax] 0.4 mg PO DAILY 12/06/16 09/26/17 Carvedilol [Coreg] 6.25 mg PO BID 09/13/17 09/26/17 Citalopram Hydrobromide [CeleXA] 20 mg PO DAILY 09/13/17 09/26/17 Dicyclomine [Bentyl] 10 mg PO DAILY 09/13/17 09/26/17 Ibuprofen [Motrin] 800 mg PO BID 09/13/17 09/26/17 Lisinopril [Prinivil] 20 mg PO DAILY 09/13/17 09/26/17 Magnesium Oxide [Mag-Ox] 400 mg PO DAILY 09/13/17 09/26/17 Multivitamins, Thera [Multivitamin 1 tab PO DAILY 09/13/17 09/26/17 (formulary)] Ranitidine HCl [Zantac] 150 mg PO DAILY 09/13/17 09/26/17 metFORMIN HCL [Glucophage] 500 mg PO DAILY 09/13/17 09/26/17 Allergies Allergy/AdvReac Type Severity Reaction Status Date / Time dipyridamole AdvReac Nausea & Verified 09/26/17 17:37 [From Persantine] Vomiting Iodinated Contrast- Oral and AdvReac Nausea & Verified 09/26/17 17:37 IV Dye Vomiting [Iodinated Contrast Media - IV Dye] morphine AdvReac Nausea & Verified 09/26/17 17:37 Vomiting Review of Systems ROS Statement: Those systems with pertinent positive or pertinent negative responses have been documented in the HPI. ROS Other: All systems not noted in ROS Statement are negative. Past Medical History Past Medical History: Diabetes Mellitus, GERD/Reflux, Hyperlipidemia, Hypertension, Sleep Apnea/CPAP/BIPAP, Syncope Additional Past Medical History / Comment(s): 11/22/14 Pt direct admission to [facility]. He is to have Ben fundoplasty today and has no water at home. Other HX: IDDM, ERIKA cannot tolerate CPAP, varicose veins, hiatal hernia, constipation occas bleeding with stools, hemorrhoids, steroid injections with in 6 mos, current tooth infection being tx with antibiotics-has taken 2 days of ABX. History of Any Multi-Drug Resistant Organisms: None Reported Past Surgical History: Back Surgery, Cholecystectomy, Heart Catheterization, Hernia Repair Additional Past Surgical History / Comment(s): arthroscopy right knee. bilateral cataracts,jeancarlos inguinal hernia repair Past Anesthesia/Blood Transfusion Reactions: No Reported Reaction Past Psychological History: Anxiety Smoking Status: Never smoker Past Alcohol Use History: Rare Past Drug Use History: None Reported - Past Family History Mother Additional Family Medical History / Comment(s): HAD PACEMAKER, age 86 Father Family Medical History: Dementia General Exam - General Exam Comments Initial Comments: Constitutional: Awake alert Appears comfortable, diaphoretic Head: Normocephalic atraumatic Eyes: no conjunctival injection No scleral icterus EOMI Neck: No JVD Supple Heart: Regular rate rhythm normal S1-S2 no murmurs Lungs: Clear to auscultation bilaterally No wheezing No rales Abdomen: Soft nondistended nontender Extremities: Non edematous DP pulses intact Radial pulses intact Neuro: A&Ox3 No focal neurologic deficits Psych: Appropriate mood and affect Limitations: no limitations Course Vital Signs 09/26/17 09/26/17 17:01 17:10 Temperature 97.0 F L Pulse Rate 51 L 51 L Respiratory 16 16 Rate Blood Pressure 119/63 O2 Sat by Pulse 99 99 Oximetry EKG Findings - EKG Comments: EKG Findings:: EKG showing sinus bradycardia libertarian with a rate of 52. There is no abnormal ST segment changes or T-wave inversions. QTC is 440. Other intervals normal. No ectopy. Patient does of note have some mild ST segment elevation about 0.5 mm however this is unchanged from previous EKG. T waves are more pronounced on this EKG from previous however no changes. Medical Decision Making - Medical Decision Making This is a 66-year-old male who presents emergency department for a couple episodes are the patient was found to be hyperkalemic. He did seem to have more prominent T waves on his EKG. Unclear if this is because of technique or because of hyperkalemia. His hyperkalemia was treated. I did speak with Dr. Gaona who accepts the patient for depression for syncope and hyperkalemia. Patient was updated and agrees with this plan. - Lab Data Result diagrams: 09/26/17 17:05 09/26/17 17:38 Lab Results 09/26/17 09/26/17 09/26/17 Range/Units 17:01 17:05 17:05 WBC 10.2 (3.8-10.6) k/uL RBC 4.76 (4.30-5.90) m/uL Hgb 15.2 (13.0-17.5) gm/dL Hct 43.4 (39.0-53.0) % MCV 91.3 (80.0-100.0) fL MCH 31.9 (25.0-35.0) pg MCHC 35.0 (31.0-37.0) g/dL RDW 12.8 (11.5-15.5) % Plt Count 204 (150-450) k/uL Neutrophils % 60 % Lymphocytes % 29 % Monocytes % 5 % Eosinophils % 4 % Basophils % 0 % Neutrophils # 6.1 (1.3-7.7) k/uL Lymphocytes # 3.0 (1.0-4.8) k/uL Monocytes # 0.5 (0-1.0) k/uL Eosinophils # 0.4 (0-0.7) k/uL Basophils # 0.0 (0-0.2) k/uL PT (9.0-12.0) sec INR (<1.2) APTT (22.0-30.0) sec Sodium (137-145) mmol/L Potassium (3.5-5.1) mmol/L Chloride (98-107) mmol/L Carbon Dioxide (22-30) mmol/L Anion Gap mmol/L BUN (9-20) mg/dL Creatinine (0.66-1.25) mg/dL Est GFR (CKD-EPI)AfAm (>60 ml/min/1.73 sqM) Est GFR (CKD-EPI)NonAf (>60 ml/min/1.73 sqM) Glucose (74-99) mg/dL POC Glucose (mg/dL) 228 H (75-99) mg/dL POC Glu Quick Print Operator ID Sherley Bone Calcium (8.4-10.2) mg/dL Magnesium (1.6-2.3) mg/dL Total Bilirubin (0.2-1.3) mg/dL AST (17-59) U/L ALT (21-72) U/L Alkaline Phosphatase (38-126) U/L CK-MB (CK-2) (0.0-2.4) ng/mL Troponin I (0.000-0.034) ng/mL NT-Pro-B Natriuret Pep 57 pg/mL Total Protein (6.3-8.2) g/dL Albumin (3.5-5.0) g/dL 09/26/17 09/26/17 09/26/17 Range/Units 17:05 17:38 17:38 WBC (3.8-10.6) k/uL RBC (4.30-5.90) m/uL Hgb (13.0-17.5) gm/dL Hct (39.0-53.0) % MCV (80.0-100.0) fL MCH (25.0-35.0) pg MCHC (31.0-37.0) g/dL RDW (11.5-15.5) % Plt Count (150-450) k/uL Neutrophils % % Lymphocytes % % Monocytes % % Eosinophils % % Basophils % % Neutrophils # (1.3-7.7) k/uL Lymphocytes # (1.0-4.8) k/uL Monocytes # (0-1.0) k/uL Eosinophils # (0-0.7) k/uL Basophils # (0-0.2) k/uL PT 9.9 (9.0-12.0) sec INR 1.0 (<1.2) APTT 21.9 L (22.0-30.0) sec Sodium 130 L (137-145) mmol/L Potassium 6.1 H (3.5-5.1) mmol/L Chloride 98 (98-107) mmol/L Carbon Dioxide 23 (22-30) mmol/L Anion Gap 9 mmol/L BUN 28 H (9-20) mg/dL Creatinine 1.19 (0.66-1.25) mg/dL Est GFR (CKD-EPI)AfAm 73 (>60 ml/min/1.73 sqM) Est GFR (CKD-EPI)NonAf 63 (>60 ml/min/1.73 sqM) Glucose 228 H (74-99) mg/dL POC Glucose (mg/dL) (75-99) mg/dL POC Glu Quick Print Operator ID Calcium 8.8 (8.4-10.2) mg/dL Magnesium 1.9 (1.6-2.3) mg/dL Total Bilirubin 0.6 (0.2-1.3) mg/dL AST 16 L (17-59) U/L ALT 23 (21-72) U/L Alkaline Phosphatase 65 (38-126) U/L CK-MB (CK-2) 3.8 H* (0.0-2.4) ng/mL Troponin I <0.012 (0.000-0.034) ng/mL NT-Pro-B Natriuret Pep pg/mL Total Protein 6.5 (6.3-8.2) g/dL Albumin 4.2 (3.5-5.0) g/dL 09/26/17 Range/Units 18:48 WBC (3.8-10.6) k/uL RBC (4.30-5.90) m/uL Hgb (13.0-17.5) gm/dL Hct (39.0-53.0) % MCV (80.0-100.0) fL MCH (25.0-35.0) pg MCHC (31.0-37.0) g/dL RDW (11.5-15.5) % Plt Count (150-450) k/uL Neutrophils % % Lymphocytes % % Monocytes % % Eosinophils % % Basophils % % Neutrophils # (1.3-7.7) k/uL Lymphocytes # (1.0-4.8) k/uL Monocytes # (0-1.0) k/uL Eosinophils # (0-0.7) k/uL Basophils # (0-0.2) k/uL PT (9.0-12.0) sec INR (<1.2) APTT (22.0-30.0) sec Sodium (137-145) mmol/L Potassium (3.5-5.1) mmol/L Chloride (98-107) mmol/L Carbon Dioxide (22-30) mmol/L Anion Gap mmol/L BUN (9-20) mg/dL Creatinine (0.66-1.25) mg/dL Est GFR (CKD-EPI)AfAm (>60 ml/min/1.73 sqM) Est GFR (CKD-EPI)NonAf (>60 ml/min/1.73 sqM) Glucose (74-99) mg/dL POC Glucose (mg/dL) 229 H (75-99) mg/dL POC Glu Quick Print Operator ID [email or web address] Calcium (8.4-10.2) mg/dL Magnesium (1.6-2.3) mg/dL Total Bilirubin (0.2-1.3) mg/dL AST (17-59) U/L ALT (21-72) U/L Alkaline Phosphatase (38-126) U/L CK-MB (CK-2) (0.0-2.4) ng/mL Troponin I (0.000-0.034) ng/mL NT-Pro-B Natriuret Pep pg/mL Total Protein (6.3-8.2) g/dL Albumin (3.5-5.0) g/dL Disposition Clinical Impression: Hyperkalemia, Syncope Disposition: ADMITTED IP TO THIS HOSP Condition: Stable Is patient prescribed a controlled substance at d/c from ED?: No
--- NOTE | 2017-09-26 17:35 | XR ---
EXAMINATION TYPE: XR chest 2V DATE OF EXAM: 09/26/2017 COMPARISON: 09/13/2017 HISTORY: Chest tightness TECHNIQUE: Frontal and lateral views of the chest are obtained. FINDINGS: There is no heart failure nor confluent pneumonic infiltrate. Heart and mediastinum are no rmal. There are chest leads. Bony thorax is intact. IMPRESSION: Normal chest. No change.
[2017-09-26 17:38] LABS: Prothrombin Time 9.9 sec (9.0-12.0)
[2017-09-26 17:45] LABS: Partial Thromboplastin Time 21.9 sec (22.0-30.0)
[2017-09-26 18:05] LABS: Albumin 4.2 g/dL (3.5-5.0); Calcium 8.8 mg/dL (8.4-10.2); Magnesium 1.9 mg/dL (1.6-2.3); Potassium 6.1 mmol/L (3.5-5.1); Total Bilirubin 0.6 mg/dL (0.2-1.3); Total Protein 6.5 g/dL (6.3-8.2)
[2017-09-26] MEDS ORDERED: CALCIUM GLUCONATE 1,000 MG in SODIUM CHLORIDE 0.9% 100 ML IVPB ONE (18:17)
[2017-09-26] MEDS ORDERED: DEXTROSE 50%-WATER 50 ML SYRINGE IVP STA (18:17)
[2017-09-26] MEDS ORDERED: INSULIN REGULAR 100 UNIT/ML VIAL IV ONE (18:17)
[2017-09-26 18:27] LABS: Troponin I <0.012 ng/mL (0.000-0.034)
[2017-09-26 18:30] LABS: Creatine Kinase MB 3.8 ng/mL (0.0-2.4)
[2017-09-26 18:57] LABS: Glucose,Whole Blood 229 mg/dL (75-99)
[2017-09-26] MEDS ORDERED: NALOXONE 0.4 MG/ML 1 ML VIAL IV PRN (18:59)
[2017-09-26] MEDS: SODIUM CHLORIDE 0.9% 1,000 ML IV SCH (19:12)
[2017-09-26 21:03] LABS: Appearance,Urine Clear (Clear); Bilirubin,Urine Negative (Negative); Blood,Urine Negative (Negative); Color,Urine Yellow; Glucose,Urine (UA) 3+ (Negative); Ketones,Urine Negative (Negative); Leukocyte Esterase,Urine Negative (Negative); Nitrite,Urine Negative (Negative); PH, Urine 5.5 (5.0-8.0); Protein,Urine Negative (Negative); Specific Gravity,Urine 1.014 (1.001-1.035); Urobilinogen,Urine <2.0 mg/dL (<2.0)
[2017-09-26 22:20] VITALS: BMI 28.4
[2017-09-26] MEDS: IBUPROFEN 800 MG TAB PO SCH ×2 (22:31→22:35)
[2017-09-26] MEDS: CARVEDILOL 6.25 MG TAB PO SCH ×2 (22:32→22:35)
[2017-09-26] MEDS: busPIRone HCl 10 MG TAB PO SCH ×2 (22:32→22:35)
[2017-09-27] MEDS: HYDROcodone/APAP 7.5-325MG 1 EACH TAB PO PRN ×2 (00:36→08:16)
[2017-09-27 06:11] LABS: Albumin 3.6 g/dL (3.5-5.0); Potassium 4.9 mmol/L (3.5-5.1); Total Bilirubin 0.3 mg/dL (0.2-1.3)
[2017-09-27 06:13] LABS: Glucose,Whole Blood 105 mg/dL (75-99)
[2017-09-27 06:20] LABS: Basophils % (A) 0 %; Eosinophils # (A) 0.3 k/uL (0-0.7); Eosinophils % (A) 2 %; HCT 38.4 % (39.0-53.0); HGB 13.4 gm/dL (13.0-17.5); Lymphocytes # (A) 2.9 k/uL (1.0-4.8); Lymphocytes % (A) 28 %; MCV 91.4 fL (80.0-100.0); Mean Platelet Volume 9.2; Monocytes # (A) 0.6 k/uL (0-1.0); Monocytes % (A) 6 %; Neutrophils # (A) 6.5 k/uL (1.3-7.7); Neutrophils % (A) 62 %; Platelet Count 174 k/uL (150-450); RDW 12.8 % (11.5-15.5); WBC 10.5 k/uL (3.8-10.6)
[2017-09-27] MEDS: CARVEDILOL 6.25 MG TAB PO SCH ×2 (06:39→16:32)
[2017-09-27] MEDS: SODIUM CHLORIDE 0.9% 1,000 ML IV SCH ×2 (06:39→14:49)
[2017-09-27] MEDS: FAMOTIDINE 20 MG TAB PO SCH (08:17)
[2017-09-27] MEDS: busPIRone HCl 10 MG TAB PO SCH ×2 (08:17→20:14)
[2017-09-27] MEDS: DICYCLOMINE 10 MG CAP PO SCH (08:17)
[2017-09-27] MEDS: CITALOPRAM HYDROBROMIDE 20 MG TAB PO SCH (08:17)
[2017-09-27] MEDS: metFORMIN 500 MG TAB PO SCH (08:18)
[2017-09-27] MEDS: IBUPROFEN 800 MG TAB PO SCH ×2 (08:18→20:15)
[2017-09-27] MEDS: MAGNESIUM OXIDE 400 MG TAB PO SCH (08:19)
[2017-09-27] MEDS: TAMSULOSIN 0.4 MG CAP.ER.24H PO SCH (08:19)
[2017-09-27] MEDS: MONTELUKAST 10 MG TAB PO SCH (08:19)
[2017-09-27] MEDS: MULTIVITAMINS, THERA 1 EACH TAB PO SCH (08:19)
--- NOTE | 2017-09-27 08:22 | P.CRDCN ---
History of Present Illness Consult date: 09/27/17 Requesting physician: Hawk Gaona Consult reason: sycope Chief complaint: Dizziness, syncope History of present illness: This is a pleasant 66-year-old gentleman with history of hypertension , diabetes, hyperlipidemia, sleep apnea, who follows with Dr. Jaramillo as an outpatient. He was recently in the hospital earlier this month with chest discomfort. He was also found at that time to be hypertensive and medication adjustments were made. An echocardiogram with Doppler study was performed which revealed an ejection fraction of 55-60%. Patient was discharged home with instruction to follow-up with Dr. Jaramillo post discharge. Patient does state that since that visit, medication adjustments have been made by his primary care doctor, Dr. Gaona. Yesterday, according to the patient, he got up a little late, took his medications later than usual, went up to the kitchen and had a bowl of ravioli, he states then that he became extremely diaphoretic, dizzy, everything went black and he passed out. His assisted him over to the couch. EMS notes are unavailable. Patient is unsure of what his blood sugar was at that time or what his blood pressure was. His EKG on arrival here shows a normal sinus rhythm with ST changes noted in the lateral leads and T- wave inversions in the inferior leads. On review of patient's most recent EKG, these changes appear to be more accentuated. Chest x-ray normal. Blood pressure on arrival here 120/60 with a heart rate of 50, 99% on 2 L of oxygen. Laboratory data was reviewed, white blood cell count 10.5, hemoglobin 13.4, platelet count 174. Sodium 133, potassium 4.9, BUN 24, creatinine 1.0. Initial troponin is negative, BNP 57. Blood glucose on arrival 228. At the time of my examination this morning, patient states generally he just doesn't feel well, he denies any overt dizziness or diaphoresis this morning. He does state that at the time of this episode, he had an ache in his chest. Past Medical History Past Medical History: Diabetes Mellitus, GERD/Reflux, Hyperlipidemia, Hypertension, Sleep Apnea/CPAP/BIPAP, Syncope Additional Past Medical History / Comment(s): Other HX: IDDM, ERIKA cannot tolerate CPAP, varicose veins, hiatal hernia, constipation occas bleeding with stools, hemorrhoids, steroid injections with in 6 mos, current tooth infection being tx with antibiotics-has taken 2 days of ABX.stress test History of Any Multi-Drug Resistant Organisms: None Reported Past Surgical History: Back Surgery, Cholecystectomy, Heart Catheterization, Hernia Repair Additional Past Surgical History / Comment(s): arthroscopy right knee. bilateral cataracts,jeancarlos inguinal hernia repair, alban funloplasty Past Anesthesia/Blood Transfusion Reactions: No Reported Reaction Past Psychological History: Anxiety Additional Psychological History / Comment(s): Pt resides with his spouse. He is independent. Smoking Status: Never smoker Past Alcohol Use History: Rare Past Drug Use History: None Reported - Past Family History Mother Additional Family Medical History / Comment(s): HAD PACEMAKER, age 86 Father Family Medical History: Dementia Medications and Allergies Home Medications Medication Instructions Recorded Confirmed Type Hydrocodone/Acetaminophen 1 tab PO TID PRN 05/01/14 09/26/17 History [Hydrocodon-Acetaminoph 7.5-325] Montelukast [Singulair] 10 mg PO DAILY 05/01/14 09/26/17 History busPIRone HCl [Buspar] 10 mg PO BID 05/01/14 09/26/17 History Tamsulosin HCl [Flomax] 0.4 mg PO DAILY 12/06/16 09/26/17 History Carvedilol [Coreg] 6.25 mg PO BID 09/13/17 09/26/17 History Citalopram Hydrobromide [CeleXA] 20 mg PO DAILY 09/13/17 09/26/17 History Dicyclomine [Bentyl] 10 mg PO DAILY 09/13/17 09/26/17 History Ibuprofen [Motrin] 800 mg PO BID 09/13/17 09/26/17 History Lisinopril [Prinivil] 20 mg PO DAILY 09/13/17 09/26/17 History Magnesium Oxide [Mag-Ox] 400 mg PO DAILY 09/13/17 09/26/17 History Multivitamins, Thera [Multivitamin 1 tab PO DAILY 09/13/17 09/26/17 History (formulary)] Ranitidine HCl [Zantac] 150 mg PO DAILY 09/13/17 09/26/17 History metFORMIN HCL [Glucophage] 500 mg PO DAILY 09/13/17 09/26/17 History Allergies Allergy/AdvReac Type Severity Reaction Status Date / Time dipyridamole AdvReac Nausea & Verified 09/26/17 17:37 [From Persantine] Vomiting Iodinated Contrast- Oral and AdvReac Nausea & Verified 09/26/17 17:37 IV Dye Vomiting [Iodinated Contrast Media - IV Dye] morphine AdvReac Nausea & Verified 09/26/17 17:37 Vomiting Physical Exam Vitals: Vital Signs Temp Pulse Pulse Resp BP BP Pulse Ox 09/27/17 04:00 97.2 F L 57 L 18 123/71 99 09/27/17 00:00 97.0 F L 56 L 18 147/81 100 09/26/17 22:00 97.6 F 53 L 18 136/79 100 09/26/17 21:46 58 L 18 141/70 98 09/26/17 19:15 56 L 128/70 100 09/26/17 17:10 51 L 16 99 09/26/17 17:01 97.0 F L 51 L 16 119/63 99 Intake and Output 09/26/17 09/27/17 09/27/17 22:59 06:59 14:59 Output Total 625 Balance -625 Output: Urine 625 Other: Voiding Method Urinal Urinal # Voids 1 Weight 89.811 kg 90.2 kg PHYSICAL EXAMINATION: HEENT: Head is atraumatic, normocephalic. Pupils equal, round. Neck is supple. There is no elevated jugular venous pressure. HEART EXAMINATION: Heart S1 and S2 systolic murmur is heard CHEST EXAMINATION: Lungs are clear to auscultation and precussion. No chest wall tenderness is noted on palpation or with deep breathing. ABDOMEN: Soft, nontender. Bowel sounds are heard. No organomegaly noted. EXTREMITIES: 2+ peripheral pulses with no evidence of peripheral edema and no calf tenderness noted. NEUROLOGIC patient is awake, alert and oriented -3. . Results 09/27/17 05:25 09/27/17 05:25 Cardiac Enzymes 09/26/17 09/26/17 09/27/17 Range/Units 17:38 17:38 05:25 AST 16 L 16 L (17-59) U/L CK-MB (CK-2) 3.8 H* (0.0-2.4) ng/mL Troponin I <0.012 (0.000-0.034) ng/mL Coagulation 09/26/17 Range/Units 17:05 PT 9.9 (9.0-12.0) sec APTT 21.9 L (22.0-30.0) sec CBC 09/26/17 09/27/17 Range/Units 17:05 05:25 WBC 10.2 10.5 (3.8-10.6) k/uL RBC 4.76 4.20 L (4.30-5.90) m/uL Hgb 15.2 13.4 (13.0-17.5) gm/dL Hct 43.4 38.4 L (39.0-53.0) % Plt Count 204 174 (150-450) k/uL Comprehensive Metabolic Panel 09/26/17 09/27/17 Range/Units 17:38 05:25 Sodium 130 L 133 L (137-145) mmol/L Potassium 6.1 H 4.9 (3.5-5.1) mmol/L Chloride 98 99 (98-107) mmol/L Carbon Dioxide 23 23 (22-30) mmol/L BUN 28 H 24 H (9-20) mg/dL Creatinine 1.19 1.01 (0.66-1.25) mg/dL Glucose 228 H 105 H (74-99) mg/dL Calcium 8.8 9.0 (8.4-10.2) mg/dL AST 16 L 16 L (17-59) U/L ALT 23 21 (21-72) U/L Alkaline Phosphatase 65 54 (38-126) U/L Total Protein 6.5 6.0 L (6.3-8.2) g/dL Albumin 4.2 3.6 (3.5-5.0) g/dL Current Medications Generic Name Dose Route Start Last Admin Trade Name Freq PRN Reason Stop Dose Admin Hydrocodone Bitart/Acetaminophen 1 each 09/26/17 19:01 09/27/17 00:36 [place] 7.5-325 PO 1 each TID PRN Administration Pain Buspirone HCl 10 mg 09/26/17 21:00 09/26/17 22:35 Buspar PO Not Given BID TACOS Carvedilol 6.25 mg 09/26/17 21:00 09/27/17 06:39 Coreg PO 6.25 mg BID-W/MEALS TACOS Administration Citalopram Hydrobromide 20 mg 09/27/17 09:00 Celexa PO DAILY TACOS Dicyclomine HCl 10 mg 09/27/17 09:00 Bentyl PO DAILY TACOS Famotidine 20 mg 09/27/17 09:00 Pepcid PO DAILY TACOS Sodium Chloride 1,000 mls @ 100 mls/hr 09/26/17 19:00 09/27/17 06:39 Saline 0.9% IV 100 mls/hr .Q10H TACOS Administration Ibuprofen 800 mg 09/26/17 21:00 09/26/17 22:35 Motrin PO Not Given BID TACOS Magnesium Oxide 400 mg 09/27/17 12:00 Mag-Ox PO 1200 TACOS Metformin HCl 500 mg 09/27/17 09:00 Glucophage PO DAILY TACOS Montelukast Sodium 10 mg 09/27/17 09:00 Singulair PO DAILY TACOS Multivitamins 1 each 09/27/17 12:00 Theragran PO 1200 TACOS Naloxone HCl 0.2 mg 09/26/17 18:59 Narcan IV Q2M PRN Opioid Reversal Tamsulosin HCl 0.4 mg 09/27/17 09:00 Flomax PO DAILY TACOS Intake and Output 09/26/17 09/27/17 09/27/17 22:59 06:59 14:59 Output Total 625 Balance -625 Output: Urine 625 Other: Voiding Method Urinal Urinal # Voids 1 Weight 89.811 kg 90.2 kg 09/27/17 05:25 09/27/17 05:25 EKG Interpretations (text) EKG shows a sinus bradycardia with mild ST elevation in anterolateral leads and T-wave inversion in the inferior leads. Assessment and Plan Plan: Assessment and plan #1 syncope, rule out cardiac causes #2 diabetes #3 hypertension #4 hyperlipidemia #5 sleep apnea #6 GERD Plan Recent echocardiogram with Doppler study performed this month showed a normal ejection fraction of 55-60%. Patient has had similar changes in the past however on this occasion much more pronounced, we will continue to monitor, obtain 2 subsequent troponins. We will also request orthostatic blood pressure and heart rate be performed every shift. Obtain patient's office progress note. Further recommendations to follow. DNP note has been reviewed, I agree with a documented findings and plan of care. Patient was seen and examined.
--- NOTE | 2017-09-27 11:24 | P.PN ---
Progress Note - Text this is an addendum to the dictated cardiology consultation. The patient presents with a syncopal episode very likely to be related to orthostatic hypotension, occurred after he took his medication without eating and subsequently had diaphoresis, nausea and brief syncope. He had a syncopal episode in December. He has no clear anginal symptoms. He is not active physically has dyspnea on exertion but no history of malignant arrhythmia. His systolic function was normal by echocardiography in the past.he has a prior history of hypertension but no history of CHF or CAD. His physical examination no evidence of lung congestion and he is in sinus mechanism. EKG shows sinus mechanism, T-wave inversion in the inferior leads with ST segment changes in lead 1 and aVL that were noted in the past, mildly worse on the initial EKG. his symptoms of syncope most likely secondary to orthostatic hypotension. I will increase his level of activity, monitor his blood pressure and heart rate, I will obtain a dobutamine echocardiogram tomorrow unless there is a change on his troponin. Thank you for this consult we will follow with you.
[2017-09-27 12:05] LABS: Glucose,Whole Blood 135 mg/dL (75-99)
[2017-09-27] MEDS: DOBUTamine DRIP for NUC MED 250 MG in DEXTROSE/WATER 1 250ML.BAG IV ONE (14:49)
[2017-09-27 16:37] LABS: Glucose,Whole Blood 127 mg/dL (75-99)
[2017-09-27 21:01] LABS: Glucose,Whole Blood 119 mg/dL (75-99)
[2017-09-28] MEDS: SODIUM CHLORIDE 0.9% 1,000 ML IV SCH (00:16)
[2017-09-28 01:55] VITALS: TEMP 97.6
--- NOTE | 2017-09-28 05:10 | HP ---
HISTORY AND PHYSICAL CHIEF COMPLAINT: A 66-year-old white male with dizziness and syncope. HISTORY OF PRESENT ILLNESS: This is a 66-year-old white male with hypertension, diabetes mellitus, dyslipidemia, who has been drinking lots of pop with very little water and not eating much food. He is found to have dehydration, orthostatic hypotension. He had recently been in the hospital for hypertension, increased blood pressure medicines were given. Before he came back to my office, he was readmitted. Apparently he collapsed, EMS was called and he was brought to the hospital. He had a chest x-ray which was normal. Hemoglobin 13.4, platelet count 74, potassium 4.9, BUN is 24, creatinine 1.0. PAST MEDICAL HISTORY: Diabetes mellitus, GERD, dyslipidemia, hypertension, obstructive sleep apnea, syncope, insulin-dependent diabetes mellitus, obstructive sleep apnea, varicose veins, hiatal hernia, constipation. SURGICAL HISTORY: Cholecystectomy, back surgery, heart catheterization, hernia repair, arthroscopy to the right knee, bilateral cataracts, inguinal hernia repair, Ben fundoplication. History of anxiety. FAMILY HISTORY: Mother with pacemaker. Father dementia. MEDICATION HISTORY: 1. [place] 7.5. 2. Singulair 10 daily. 3. BuSpar 10 b.i.d. 4. Flomax 0.4 mg daily. 5. Mag oxide. 6. Motrin. 7. Prinivil. 8. Bentyl. 9. Celexa. 10.Coreg. 11.Multivitamins. ALLERGIES: PERSANTINE, IV DYE, MORPHINE, IODINE. REVIEW OF SYSTEMS: Fourteen point review of systems negative except for mentioned in HPI. PHYSICAL EXAMINATION: Temperature 97.2, pulse is 50s to 60s, blood pressure is 120s 140s over 70s, O2 of 99% to 100%. CARDIOVASCULAR: S1, S2. LUNGS: Clear. GI: Soft. HEMATOLOGY: Negative Homans. PSYCH: Fair mood and affect. NEUROLOGIC: Alert and oriented x3. VASCULAR: Normal dorsalis pedis, posterior tibial, radial pulse. Hemoglobin 13.4, white count 7.5. Sodium 133, potassium 4.9. BUN is 24, creatinine 1.01. EKG shows sinus bradycardia. ASSESSMENT: 1. Syncope, rule out cardiac disease. 2. Diabetes mellitus. 3. Hypertension. 4. Dyslipidemia. 5. Sleep apnea. 6. Gastroesophageal reflux disease. 7. Recent echo was normal. 8. Hyperkalemia secondary to dehydration. More fluid rehydration, potassium will be corrected. Orthostatic blood pressure checks. Cardiology consult. MMODL / IJN: [id number] /
[2017-09-28 06:08] LABS: ALT 16 U/L (21-72); AST 21 U/L (17-59); Albumin 3.6 g/dL (3.5-5.0); Alkaline Phosphatase 47 U/L (38-126); Anion Gap 10 mmol/L; Blood Urea Nitrogen 21 mg/dL (9-20); Calcium 8.9 mg/dL (8.4-10.2); Carbon Dioxide 22 mmol/L (22-30); Chloride 101 mmol/L (98-107); Glucose 97 mg/dL (74-99); Potassium 4.8 mmol/L (3.5-5.1); Sodium 133 mmol/L (137-145); Total Bilirubin 0.5 mg/dL (0.2-1.3)
[2017-09-28 06:13] LABS: Basophils % (A) 0 %; Eosinophils # (A) 0.4 k/uL (0-0.7); Eosinophils % (A) 5 %; HCT 38.3 % (39.0-53.0); HGB 13.1 gm/dL (13.0-17.5); Lymphocytes # (A) 2.6 k/uL (1.0-4.8); Lymphocytes % (A) 32 %; MCH 31.5 pg (25.0-35.0); MCHC 34.2 g/dL (31.0-37.0); MCV 92.2 fL (80.0-100.0); Mean Platelet Volume 8.4; Monocytes # (A) 0.4 k/uL (0-1.0); Monocytes % (A) 5 %; Neutrophils # (A) 4.5 k/uL (1.3-7.7); Neutrophils % (A) 55 %; Platelet Count 152 k/uL (150-450); RBC 4.15 m/uL (4.30-5.90); RDW 12.7 % (11.5-15.5); WBC 8.1 k/uL (3.8-10.6)
[2017-09-28 06:20] LABS: Glucose,Whole Blood 108 mg/dL (75-99)
[2017-09-28] MEDS: DOBUTamine DRIP for NUC MED 250 MG in DEXTROSE/WATER 1 250ML.BAG IV ONE (08:03)
[2017-09-28 08:19] VITALS: RESP 16
[2017-09-28] MEDS ORDERED: ASPIRIN 81 MG PO SCH (09:00)
[2017-09-28] MEDS ORDERED: DOBUTamine DRIP for NUC MED 250 MG in DEXTROSE/WATER 1 250ML.BAG IV ONE (10:00)
[2017-09-28 11:43] LABS: Glucose,Whole Blood 101 mg/dL (75-99)
[2017-09-28] MEDS: CITALOPRAM HYDROBROMIDE 20 MG TAB PO SCH (11:45)
[2017-09-28] MEDS: busPIRone HCl 10 MG TAB PO SCH (11:46)
[2017-09-28] MEDS: CARVEDILOL 6.25 MG TAB PO SCH (11:46)
[2017-09-28] MEDS: IBUPROFEN 800 MG TAB PO SCH (11:47)
[2017-09-28] MEDS: DICYCLOMINE 10 MG CAP PO SCH (11:47)
[2017-09-28] MEDS: FAMOTIDINE 20 MG TAB PO SCH (11:47)
[2017-09-28] MEDS: TAMSULOSIN 0.4 MG CAP.ER.24H PO SCH (11:48)
[2017-09-28] MEDS: metFORMIN 500 MG TAB PO SCH (11:48)
[2017-09-28] MEDS: MONTELUKAST 10 MG TAB PO SCH (11:48)
[2017-09-28] MEDS: MULTIVITAMINS, THERA 1 EACH TAB PO SCH (11:49)
[2017-09-28] MEDS: MAGNESIUM OXIDE 400 MG TAB PO SCH (11:49)
[2017-09-28 11:53] VITALS: BP 134/83; PULSE 60
--- NOTE | 2017-09-28 15:05 | P.PN ---
Subjective Progress Note Date: 09/28/17 This is a pleasant 66-year-old gentleman with history of hypertension , diabetes, hyperlipidemia, sleep apnea, who follows with Dr. Jaramillo as an outpatient. He was recently in the hospital earlier this month with chest discomfort. He was also found at that time to be hypertensive and medication adjustments were made. An echocardiogram with Doppler study was performed which revealed an ejection fraction of 55-60%. Patient was discharged home with instruction to follow-up with Dr. Jaramillo post discharge. Patient does state that since that visit, medication adjustments have been made by his primary care doctor, Dr. Gaona. Yesterday, according to the patient, he got up a little late, took his medications later than usual, went up to the kitchen and had a bowl of ravioli, he states then that he became extremely diaphoretic, dizzy, everything went black and he passed out. His assisted him over to the couch. EMS notes are unavailable. Patient is unsure of what his blood sugar was at that time or what his blood pressure was. His EKG on arrival here shows a normal sinus rhythm with ST changes noted in the lateral leads and T- wave inversions in the inferior leads. On review of patient's most recent EKG, these changes appear to be more accentuated. Chest x-ray normal. Blood pressure on arrival here 120/60 with a heart rate of 50, 99% on 2 L of oxygen. Laboratory data was reviewed, white blood cell count 10.5, hemoglobin 13.4, platelet count 174. Sodium 133, potassium 4.9, BUN 24, creatinine 1.0. Initial troponin is negative, BNP 57. Blood glucose on arrival 228. At the time of my examination this morning, patient states generally he just doesn't feel well, he denies any overt dizziness or diaphoresis this morning. He does state that at the time of this episode, he had an ache in his chest. 2017 Patient was seen and examined this morning, denies any chest discomfort, hemodynamically he is stable. He is scheduled today to undergo a dobutamine echocardiographic study, results of which are yet pending. If his dobutamine echo was negative he may be able to be discharged home from cardiology's perspective to follow-up with Dr. VC Jaramillo in the office post discharge. Objective - Vital Signs Vital signs: Vital Signs Temp 97.6 F 09/28/17 04:00 Pulse 60 09/28/17 11:52 Resp 16 09/28/17 14:30 BP 134/83 09/28/17 11:52 Pulse Ox 97 09/28/17 11:52 Intake & Output 09/27/17 09/28/17 09/28/17 18:59 06:59 18:59 Intake Total 720 800 0 Output Total 1025 1400 600 Balance -305 -600 -600 Weight 87.7 kg Intake: IV 800 0.9 800 Oral 720 0 Output: Urine 1025 1400 600 Other: Voiding Method Urinal Urinal Urinal # Voids 1 # Bowel Movements 0 - Exam PHYSICAL EXAMINATION: HEENT: Head is atraumatic, normocephalic. Pupils equal, round. Neck is supple. There is no elevated jugular venous pressure. HEART EXAMINATION: Heart S1 and S2 systolic murmur is heard CHEST EXAMINATION: Lungs are clear to auscultation and precussion. No chest wall tenderness is noted on palpation or with deep breathing. ABDOMEN: Soft, nontender. Bowel sounds are heard. No organomegaly noted. EXTREMITIES: 2+ peripheral pulses with no evidence of peripheral edema and no calf tenderness noted. NEUROLOGIC patient is awake, alert and oriented -3. - Labs CBC & Chem 7: 09/28/17 05:31 09/28/17 05:31 Labs: Abnormal Lab Results - Last 24 Hours (Table) 09/27/17 09/27/17 09/28/17 Range/Units 16:36 20:59 05:31 RBC (4.30-5.90) m/uL Hct (39.0-53.0) % Sodium 133 L (137-145) mmol/L BUN 21 H (9-20) mg/dL POC Glucose (mg/dL) 127 H 119 H (75-99) mg/dL ALT 16 L (21-72) U/L Total Protein 6.0 L (6.3-8.2) g/dL 09/28/17 09/28/17 09/28/17 Range/Units 05:31 06:17 11:40 RBC 4.15 L (4.30-5.90) m/uL Hct 38.3 L (39.0-53.0) % Sodium (137-145) mmol/L BUN (9-20) mg/dL POC Glucose (mg/dL) 108 H 101 H (75-99) mg/dL ALT (21-72) U/L Total Protein (6.3-8.2) g/dL Assessment and Plan Plan: Assessment and plan #1 syncope, no significant tachycardia or bradycardia arrhythmias noted, no orthostatic hypotension documented. #2 diabetes #3 hypertension #4 hyperlipidemia #5 sleep apnea #6 GERD Plan Recent echocardiogram with Doppler study performed this month showed a normal ejection fraction of 55-60%. Dobutamine echocardiographic study was performed today, we are awaiting results of that. If the dobutamine echocardiographic study is negative, from cardiology's perspective he may be able to be discharged home to follow-up with Dr. VC Jaramillo in the office post discharge. DNP note has been reviewed, I agree with a documented findings and plan of care. Patient was seen and examined.
--- NOTE | 2017-09-28 15:32 | ECHOS ---
STRESS ECHOCARDIOGRAM INDICATIONS: Chest pain and syncope BASELINE HEART RATE: 67 BASELINE BLOOD PRESSURE: 137/73 MAXIMUM HEART RATE: 131 MAXIMUM BLOOD PRESSURE: 192/94 85% MPHR: 131 100% MPHR: 154 MAXIMUM STAGE REACHED: III TOTAL EXERCISE TIME: 10:26 CLINICAL INFORMATION: Baseline EKG shows sinus rhythm, normal axis, normal intervals with poor R-wave progression. Patient was given intravenous dobutamine over a period of 10.5 minutes as per protocol, achieving 85% of predicted maximal heart rate without chest pain or diagnostic ST-segment depression. Baseline echo shows normal left ventricular size, wall motion and systolic function. Post dobutamine infusion, there is normal hyperdynamic response of all segments of myocardium noted. CONCLUSION: 1. Negative stress test by EKG criteria. 2. Negative dobutamine echo. MMODL / IJN: [id number] /
--- NOTE | 2017-09-28 16:53 | PN ---
PROGRESS NOTE SUBJECTIVE: G[age]-old white male admitted with hyperkalemia, syncope, having a Persantine stress test done today. His medications were adjusted by Cardiology. He is eating and drinking more. His white count is 8.1, hemoglobin 13.1, sodium 133, potassium 4.8, glucose in mid 100s. CARDIOVASCULAR: S1, S2. LUNGS: Clear. GI: Soft. HEMATOLOGY: Negative Homans. PSYCH: Fair mood and affect. ASSESSMENT: 1. Atypical chest pain. 2. Dehydration. 3. Orthostatic hypotension. 4. Metabolic encephalopathy. Persantine stress test today. Hyperkalemia has resolved. Patient will be possibly discharged home if cleared by Cardiology. MMODL / IJN: [id number] /
[2017-09-28 16:54] LABS: Glucose,Whole Blood 109 mg/dL (75-99)
--- NOTE | 2017-10-11 21:05 | CDI ---
Last Revision, May 2017 Documentation Clarification Form Date: 10/11/17 From: AYE Alvarez Phone: If you have question, contact Luba Turner Professor Of Religion at Admit Date: 09/26/2017 7:00:00 PM Patient Name: Hawk Taylor Visit Number: [id number] Discharge Date: 09/28/17 ATTENTION: The Clinical Documentation Specialists (CDI) and [facility] Coding Staff appreciate your assistance in clarifying documentation. Please respond to the clarification below the line at the bottom and electronically sign. The CDI & [facility] Coding staff will review the response and follow-up if needed. Please note: Queries are made part of the Legal Health Record. If you have any questions, please contact the author of this message via ITS. Dr. Hawk Gaona Mr. Taylor was admitted after a syncopal episode. Metabolic encephalopathy is documented on your progress note dated 09/28. Neurologic findings on the H&P, Consult and Progress notes indicate alert and oriented x 3. Please clarify the specific indicators and treatment for the diagnosis of metabolic encephalopathy. If this condition was ruled out or documented in error, please indicate in your query response. Thank you for your time. MTDD
--- NOTE | 2017-10-13 19:29 | CDI ---
Documentation Clarification Form Date: 10/11/17 From: AYE Alvarez Phone: If you have question, contact Luba Benitezlexie, Job Superintendent at Admit Date: 09/26/2017 7:00:00 PM Patient Name: Hawk Taylor Visit Number: [id number] Discharge Date: 09/28/17 ATTENTION: The Clinical Documentation Specialists (CDI) and [facility] Coding Staff appreciate your assistance in clarifying documentation. Please respond to the clarification below the line at the bottom and electronically sign. The CDI & [facility] Coding staff will review the response and follow-up if needed. Please note: Queries are made part of the Legal Health Record. If you have any questions, please contact the author of this message via ITS. Dr. Hawk Gaona Mr. Taylor was admitted after a syncopal episode. Metabolic encephalopathy is documented on your progress note dated 09/28. Neurologic findings on the H&P, Consult and Progress notes indicate alert and oriented x 3. Please clarify the specific indicators and treatment for the diagnosis of metabolic encephalopathy. If this condition was ruled out or documented in error, please indicate in your query response. Thank you for your time. MTDD
--- NOTE | 2017-10-13 22:53 | DS ---
DISCHARGE SUMMARY ADDENDUM: Cancel the diagnosis of metabolic encephalopathy. He had syncopal episode. No metabolic encephalopathy. MMODL / IJN: [id number] /
== END 2017-09-28 17:50 | disposition home or self-care (01) | DRG 312 ==
LOC: EC 16:57 → 6SEL 19:00
PROVIDERS: ADMIT Family Medicine; ATTEND Family Medicine
DX: I95.1 Orthostatic hypotension (principal); E87.5 Hyperkalemia; E86.0 Dehydration; E11.9 Type 2 diabetes mellitus without complications; K21.9 Gastro-esophageal reflux disease without esophagitis; E78.5 Hyperlipidemia, unspecified; G47.33 Obstructive sleep apnea (adult) (pediatric); I10 Essential (primary) hypertension; R07.89 Other chest pain; F41.9 Anxiety disorder, unspecified; Z82.49 Family history of ischemic heart disease and other diseases of the circulatory system; Z88.5 Allergy status to narcotic agent; Z88.8 Allergy status to other drugs, medicaments and biological substances; Z91.041 Radiographic dye allergy status; Z79.84 Long term (current) use of oral hypoglycemic drugs; Z79.1 Long term (current) use of non-steroidal anti-inflammatories (NSAID); Z79.899 Other long term (current) drug therapy; Z90.49 Acquired absence of other specified parts of digestive tract
CPT/HCPCS: 36415; 71046; 80053; 81003; 82553; 83735; 83880; 84484; 85025; 85610; 85730; 93005; 93351; 96361; 96365; 96375; 99285

== ENCOUNTER 2017-11-16 15:30 | Emergency (ER) | payer MEDICARE, OTHER ==
[2017-11-16 15:51] VITALS: BP 170/91; PULSE 59; RESP 18; TEMP 98.1
[2017-11-16] MEDS ORDERED: KETOROLAC 60 MG/2 ML VIAL IM STA (16:16)
[2017-11-16] MEDS ORDERED: DIAZEPAM 5 MG/ML 2 ML INJ IM ONE (16:17)
--- NOTE | 2017-11-16 16:30 | ED ---
General Adult HPI - General Chief complaint: Neck Pain/Injury Stated complaint: neck pain Time Seen by Provider: 11/16/17 15:50 Source: patient, RN notes reviewed Mode of arrival: ambulatory Limitations: no limitations - History of Present Illness Initial comments: This is a 67-year-old male who presents emergency Department complaining of left trapezius muscle pain. Patient states his been intermittent over the last 3 or 4 months. Patient states it's worse with turning his head to the right. Patient denies any numbness or weakness. Patient denies any headache. Patient denies any chest pain palpitations difficulty breathing shortness breath. Patient denies any recent injury. Patient states when it spasms his massages it feels considerably better. - Related Data Home Medications Medication Instructions Recorded Confirmed Hydrocodone/Acetaminophen 1 tab PO TID PRN 05/01/14 11/16/17 [Hydrocodon-Acetaminoph 7.5-325] Montelukast [Singulair] 10 mg PO DAILY 05/01/14 11/16/17 busPIRone HCl [Buspar] 10 mg PO BID 05/01/14 11/16/17 Tamsulosin HCl [Flomax] 0.4 mg PO DAILY 12/06/16 11/16/17 Carvedilol [Coreg] 6.25 mg PO BID 09/13/17 11/16/17 Citalopram Hydrobromide [CeleXA] 20 mg PO DAILY 09/13/17 11/16/17 Dicyclomine [Bentyl] 10 mg PO DAILY 09/13/17 11/16/17 Ibuprofen [Motrin] 800 mg PO BID 09/13/17 11/16/17 Lisinopril [Prinivil] 20 mg PO DAILY 09/13/17 11/16/17 Magnesium Oxide [Mag-Ox] 400 mg PO DAILY 09/13/17 11/16/17 Multivitamins, Thera [Multivitamin 1 tab PO DAILY 09/13/17 11/16/17 (formulary)] Ranitidine HCl [Zantac] 150 mg PO DAILY 09/13/17 11/16/17 metFORMIN HCL [Glucophage] 500 mg PO DAILY 09/13/17 11/16/17 Previous Rx's Medication Instructions Recorded Cyclobenzaprine [Flexeril] 10 mg PO TID #20 tab 11/16/17 Ibuprofen [Motrin] 600 mg PO Q6HR PRN #20 tab 11/16/17 Allergies Allergy/AdvReac Type Severity Reaction Status Date / Time dipyridamole AdvReac Nausea & Verified 11/16/17 16:09 [From Persantine] Vomiting Iodinated Contrast- Oral and AdvReac Nausea & Verified 11/16/17 16:09 IV Dye Vomiting [Iodinated Contrast Media - IV Dye] morphine AdvReac Nausea & Verified 11/16/17 16:09 Vomiting Review of Systems ROS Statement: Those systems with pertinent positive or pertinent negative responses have been documented in the HPI. ROS Other: All systems not noted in ROS Statement are negative. Past Medical History Past Medical History: Diabetes Mellitus, GERD/Reflux, Hyperlipidemia, Hypertension, Sleep Apnea/CPAP/BIPAP, Syncope Additional Past Medical History / Comment(s): Other HX: IDDM, ERIKA cannot tolerate CPAP, varicose veins, hiatal hernia, constipation occas bleeding with stools, hemorrhoids, hyperkalemia History of Any Multi-Drug Resistant Organisms: None Reported Past Surgical History: Back Surgery, Cholecystectomy, Heart Catheterization, Hernia Repair Additional Past Surgical History / Comment(s): arthroscopy right knee. bilateral cataracts,jeancarlos inguinal hernia repair, alban funloplasty Past Anesthesia/Blood Transfusion Reactions: No Reported Reaction Past Psychological History: Anxiety Smoking Status: Never smoker Past Alcohol Use History: Rare Past Drug Use History: None Reported - Past Family History Mother Additional Family Medical History / Comment(s): HAD PACEMAKER, age 86 Father Family Medical History: Dementia General Exam - General Exam Comments Initial Comments: GENERAL Patient is well-developed and well-nourished. Patient is in mild distress. EYES Patient's pupils are equal and round. Extraocular motion is intact SKIN Unremarkable NEURO The patient is alert and oriented 3 PYSCH Patient has normal interpersonal interactions. MUSCULOSKELETAL Left trapezius muscle is tender to palpation. Patient has increased pain in the trapezius muscle when he looks to the right or looks to the right and down. Limitations: no limitations Course Vital Signs 11/16/17 15:48 Temperature 98.1 F Pulse Rate 59 L Respiratory 18 Rate Blood Pressure 170/91 O2 Sat by Pulse 96 Oximetry Disposition Clinical Impression: Trapezius muscle strain Disposition: HOME SELF-CARE Condition: Good Instructions: Cervical Strain (ED) Prescriptions: Cyclobenzaprine [Flexeril] 10 mg PO TID #20 tab Ibuprofen [Motrin] 600 mg PO Q6HR PRN #20 tab PRN Reason: For pain Is patient prescribed a controlled substance at d/c from ED?: No Referrals: Hawk Gaona MD [Primary Care Provider] - 1-2 days Time of Disposition: 16:29
== END 2017-11-16 17:09 | disposition home or self-care (01) ==
LOC: EC 15:30
DX: S46.812A Strain of other muscles, fascia and tendons at shoulder and upper arm level, left arm, initial encounter (principal); E11.9 Type 2 diabetes mellitus without complications; K21.9 Gastro-esophageal reflux disease without esophagitis; I10 Essential (primary) hypertension; G47.33 Obstructive sleep apnea (adult) (pediatric); Z99.89 Dependence on other enabling machines and devices; Z79.02 Long term (current) use of antithrombotics/antiplatelets; Z79.1 Long term (current) use of non-steroidal anti-inflammatories (NSAID); Z79.84 Long term (current) use of oral hypoglycemic drugs; Z79.899 Other long term (current) drug therapy; Z88.8 Allergy status to other drugs, medicaments and biological substances; Z91.041 Radiographic dye allergy status; Z88.5 Allergy status to narcotic agent; Z95.818 Presence of other cardiac implants and grafts; F41.9 Anxiety disorder, unspecified
CPT/HCPCS: 99283; 96372 ×2; J3360; J1885

== ENCOUNTER 2017-12-02 21:34 | Emergency (ER) | payer MEDICARE, OTHER ==
[2017-12-02] MEDS ORDERED: SODIUM CHLORIDE 0.9% 500 ML IV STA (22:19)
--- NOTE | 2017-12-02 22:22 | ED ---
Abdominal Pain HPI - General Chief Complaint: Abdominal Pain Stated Complaint: Abd pain, Diarrhea Time Seen by Provider: 12/02/17 21:51 Source: patient, family Mode of arrival: wheelchair Limitations: no limitations - History of Present Illness Initial Comments: 67-year-old male patient presents to the emergency department today with multiple complaints. He states that he has been having diarrhea for the last couple of days. States whenever he eat or drinks anything he immediately has to have a bowel movement. Patient states he has also been having some generalized abdominal cramping however worse over the left lower quadrant. Patient states that he has been having intermittent sweats. Reports he has been having intermittent chest pain over the last couple of weeks. States that he has been having a productive cough with clear sputum. States he has been having a lot of clear nasal drainage and nasal congestion as well. Patient denies any nausea or vomiting. Denies any recent antibiotic use, travel, or sick contacts. Patient denies any recent rash, shortness breath, back pain, numbness, tingling, dizziness, weakness, hematuria, dysuria, urinary urgency, urinary frequency, headache, visual changes, or any other complaints. - Related Data Home Medications Medication Instructions Recorded Confirmed Hydrocodone/Acetaminophen 1 tab PO TID PRN 05/01/14 12/02/17 [Hydrocodon-Acetaminoph 7.5-325] Montelukast [Singulair] 10 mg PO DAILY 05/01/14 12/02/17 busPIRone HCl [Buspar] 10 mg PO BID 05/01/14 12/02/17 Tamsulosin HCl [Flomax] 0.4 mg PO DAILY 12/06/16 12/02/17 Carvedilol [Coreg] 6.25 mg PO BID 09/13/17 12/02/17 Citalopram Hydrobromide [CeleXA] 20 mg PO DAILY 09/13/17 12/02/17 Ibuprofen [Motrin] 800 mg PO BID 09/13/17 12/02/17 Lisinopril [Prinivil] 20 mg PO DAILY 09/13/17 12/02/17 Magnesium Oxide [Mag-Ox] 400 mg PO DAILY 09/13/17 12/02/17 Multivitamins, Thera [Multivitamin 1 tab PO DAILY 09/13/17 12/02/17 (formulary)] Ranitidine HCl [Zantac] 150 mg PO DAILY 09/13/17 12/02/17 metFORMIN HCL [Glucophage] 500 mg PO DAILY 09/13/17 12/02/17 Allergies Allergy/AdvReac Type Severity Reaction Status Date / Time dipyridamole AdvReac Nausea & Verified 12/02/17 21:56 [From Persantine] Vomiting Iodinated Contrast- Oral and AdvReac Nausea & Verified 12/02/17 21:56 IV Dye Vomiting [Iodinated Contrast Media - IV Dye] morphine AdvReac Nausea & Verified 12/02/17 21:56 Vomiting Review of Systems ROS Statement: Those systems with pertinent positive or pertinent negative responses have been documented in the HPI. ROS Other: All systems not noted in ROS Statement are negative. Past Medical History Past Medical History: Diabetes Mellitus, GERD/Reflux, Hyperlipidemia, Hypertension, Sleep Apnea/CPAP/BIPAP, Syncope Additional Past Medical History / Comment(s): Other HX: IDDM, ERIKA cannot tolerate CPAP, varicose veins, hiatal hernia, constipation occas bleeding with stools, hemorrhoids, hyperkalemia History of Any Multi-Drug Resistant Organisms: None Reported Past Surgical History: Back Surgery, Cholecystectomy, Heart Catheterization, Hernia Repair Additional Past Surgical History / Comment(s): arthroscopy right knee. bilateral cataracts,jeancarlos inguinal hernia repair, alban funloplasty Past Anesthesia/Blood Transfusion Reactions: No Reported Reaction Past Psychological History: Anxiety Smoking Status: Never smoker Past Alcohol Use History: Rare Past Drug Use History: None Reported - Past Family History Mother Additional Family Medical History / Comment(s): HAD PACEMAKER, age 86 Father Family Medical History: Dementia General Exam Limitations: no limitations General appearance: alert, in no apparent distress, other (So well-developed, well-nourished adult male patient in no acute distress. Vital signs upon presentation are temperature 98.3F, pulse 98, respirations 20, blood pressure 143/91, pulse ox 96% on room air.) Eye exam: Present: normal appearance, PERRL, EOMI. Absent: scleral icterus, conjunctival injection, periorbital swelling ENT exam: Present: normal exam, normal oropharynx, mucous membranes moist Respiratory exam: Present: normal lung sounds bilaterally. Absent: respiratory distress, wheezes, rales, rhonchi, stridor Cardiovascular Exam: Present: regular rate, normal rhythm, normal heart sounds. Absent: systolic murmur, diastolic murmur, rubs, gallop, clicks GI/Abdominal exam: Present: soft, tenderness (Left lower and right lower quadrant tenderness), normal bowel sounds. Absent: distended, guarding, rebound , rigid Neurological exam: Present: alert, oriented X3, CN II-XII intact Psychiatric exam: Present: normal affect, normal mood Skin exam: Present: warm, dry, intact, normal color. Absent: rash Course Vital Signs 12/02/17 12/03/17 21:41 01:40 Temperature 98.3 F 97 F L Pulse Rate 98 74 Respiratory 20 18 Rate Blood Pressure 143/91 152/59 O2 Sat by Pulse 96 96 Oximetry Medical Decision Making - Medical Decision Making 67-year-old male patient presents to the emergency department today for complaints of diarrhea 2 days. Patient states he also had some intermittent left-sided chest pain going on for the last couple of weeks, states worsens with cough. Patient is also had clear nasal drainage. Physical examination was unremarkable. Lungs are clear to auscultation with good air movement. Abdomen is soft and nontender. Patient is afebrile, vital signs are stable. Labs reviewed and were unremarkable. Cardiac enzymes negative, EKG normal sinus rhythm. Patient did have a stress test a couple months ago which was normal. Did discuss findings and results with the patient. Did discuss he was mildly dehydrated. We did discuss diet changes. He is instructed to increase fluids. Is instructed to follow up with his primary care physician for recheck in 1-2 days. Return parameters discussed in detail. He verbalizes understanding and agreed with this plan. - Lab Data Result diagrams: 12/02/17 22:55 12/02/17 22:55 Lab Results 12/02/17 12/02/17 12/02/17 Range/Units 22:55 22:55 22:55 WBC 8.5 (3.8-10.6) k/uL RBC 4.66 (4.30-5.90) m/uL Hgb 14.9 (13.0-17.5) gm/dL Hct 43.7 (39.0-53.0) % MCV 93.8 (80.0-100.0) fL MCH 31.9 (25.0-35.0) pg MCHC 34.0 (31.0-37.0) g/dL RDW 12.9 (11.5-15.5) % Plt Count 182 (150-450) k/uL Neutrophils % 69 % Lymphocytes % 18 % Monocytes % 6 % Eosinophils % 5 % Basophils % 0 % Neutrophils # 5.9 (1.3-7.7) k/uL Lymphocytes # 1.6 (1.0-4.8) k/uL Monocytes # 0.5 (0-1.0) k/uL Eosinophils # 0.4 (0-0.7) k/uL Basophils # 0.0 (0-0.2) k/uL PT (9.0-12.0) sec INR (<1.2) APTT (22.0-30.0) sec Sodium 138 (137-145) mmol/L Potassium 4.6 (3.5-5.1) mmol/L Chloride 106 (98-107) mmol/L Carbon Dioxide 20 L (22-30) mmol/L Anion Gap 12 mmol/L BUN 19 (9-20) mg/dL Creatinine 1.30 H (0.66-1.25) mg/dL Est GFR (CKD-EPI)AfAm 66 (>60 ml/min/1.73 sqM) Est GFR (CKD-EPI)NonAf 57 (>60 ml/min/1.73 sqM) Glucose 181 H (74-99) mg/dL Calcium 9.0 (8.4-10.2) mg/dL Total Bilirubin 0.3 (0.2-1.3) mg/dL AST 23 (17-59) U/L ALT 23 (21-72) U/L Alkaline Phosphatase 63 (38-126) U/L Total Creatine Kinase 110 (55-170) U/L CK-MB (CK-2) 6.9 H* (0.0-2.4) ng/mL CK-MB (CK-2) Rel Index 6.3 Troponin I <0.012 (0.000-0.034) ng/mL Total Protein 6.9 (6.3-8.2) g/dL Albumin 4.3 (3.5-5.0) g/dL Amylase 84 (30-110) U/L Lipase 62 (23-300) U/L Urine Color Urine Appearance (Clear) Urine pH (5.0-8.0) Ur Specific Di[place] (1.001-1.035) Urine Protein (Negative) Urine Glucose (UA) (Negative) Urine Ketones (Negative) Urine Blood (Negative) Urine Nitrite (Negative) Urine Bilirubin (Negative) Urine Urobilinogen (<2.0) mg/dL Ur Leukocyte Esterase (Negative) Urine RBC (0-5) /hpf Urine WBC (0-5) /hpf Ur Squamous Epith Cells (0-4) /hpf Urine Bacteria (None) /hpf Hyaline Casts (0-2) /lpf Urine Mucus (None) /hpf 12/02/17 12/02/17 Range/Units 22:55 23:50 WBC (3.8-10.6) k/uL RBC (4.30-5.90) m/uL Hgb (13.0-17.5) gm/dL Hct (39.0-53.0) % MCV (80.0-100.0) fL MCH (25.0-35.0) pg MCHC (31.0-37.0) g/dL RDW (11.5-15.5) % Plt Count (150-450) k/uL Neutrophils % % Lymphocytes % % Monocytes % % Eosinophils % % Basophils % % Neutrophils # (1.3-7.7) k/uL Lymphocytes # (1.0-4.8) k/uL Monocytes # (0-1.0) k/uL Eosinophils # (0-0.7) k/uL Basophils # (0-0.2) k/uL PT 10.0 (9.0-12.0) sec INR 1.0 (<1.2) APTT 23.1 (22.0-30.0) sec Sodium (137-145) mmol/L Potassium (3.5-5.1) mmol/L Chloride (98-107) mmol/L Carbon Dioxide (22-30) mmol/L Anion Gap mmol/L BUN (9-20) mg/dL Creatinine (0.66-1.25) mg/dL Est GFR (CKD-EPI)AfAm (>60 ml/min/1.73 sqM) Est GFR (CKD-EPI)NonAf (>60 ml/min/1.73 sqM) Glucose (74-99) mg/dL Calcium (8.4-10.2) mg/dL Total Bilirubin (0.2-1.3) mg/dL AST (17-59) U/L ALT (21-72) U/L Alkaline Phosphatase (38-126) U/L Total Creatine Kinase (55-170) U/L CK-MB (CK-2) (0.0-2.4) ng/mL CK-MB (CK-2) Rel Index Troponin I (0.000-0.034) ng/mL Total Protein (6.3-8.2) g/dL Albumin (3.5-5.0) g/dL Amylase (30-110) U/L Lipase (23-300) U/L Urine Color Yellow Urine Appearance Clear (Clear) Urine pH 5.5 (5.0-8.0) Ur Specific Dieterich 1.021 (1.001-1.035) Urine Protein 1+ H (Negative) Urine Glucose (UA) Negative (Negative) Urine Ketones Negative (Negative) Urine Blood Negative (Negative) Urine Nitrite Negative (Negative) Urine Bilirubin Negative (Negative) Urine Urobilinogen <2.0 (<2.0) mg/dL Ur Leukocyte Esterase Negative (Negative) Urine RBC 1 (0-5) /hpf Urine WBC 1 (0-5) /hpf Ur Squamous Epith Cells <1 (0-4) /hpf Urine Bacteria Rare H (None) /hpf Hyaline Casts 55 H (0-2) /lpf Urine Mucus Rare H (None) /hpf - EKG Data -: EKG Interpreted by Ne EKG Comments: EKG obtained at 2223 shows normal sinus rhythm with a left anterior fascicular block. Ventricular rate is 80, FL interval 154, QRS Duration 98, QT 398, QTC 459. No evidence of ST elevation or depression. - Radiology Data Radiology results: report reviewed, image reviewed 2 views of the abdomen were obtained. Report was reviewed in its entirety. Impression by Dr. Guthrie shows nonacute abdomen. No adverse change compared to old exam. Two-view x-ray of the chest was obtained. Heart and mediastinum are normal. Lungs are clear. Diaphragm is normal. Bony thorax appears normal. Impression by Dr. Guthrie shows normal chest with no change. Disposition Clinical Impression: Enteritis Disposition: HOME SELF-CARE Condition: Good Instructions: Diet for Stomach Ulcers and Gastritis (ED), Enteritis (ED) Additional Instructions: Increase fluids. Follow diet. Follow-up with your primary care physician for recheck in 1-2 days. Return here immediately for any new, worsening, or concerning symptoms. Is patient prescribed a controlled substance at d/c from ED?: No Referrals: Hawk Gaona MD [Primary Care Provider] - 1-2 days Time of Disposition: 01:08
[2017-12-02 23:12] LABS: Basophils % (A) 0 %; Eosinophils # (A) 0.4 k/uL (0-0.7); Eosinophils % (A) 5 %; HCT 43.7 % (39.0-53.0); HGB 14.9 gm/dL (13.0-17.5); Lymphocytes # (A) 1.6 k/uL (1.0-4.8); Lymphocytes % (A) 18 %; MCH 31.9 pg (25.0-35.0); MCV 93.8 fL (80.0-100.0); Mean Platelet Volume 8.7; Monocytes # (A) 0.5 k/uL (0-1.0); Monocytes % (A) 6 %; Neutrophils # (A) 5.9 k/uL (1.3-7.7); Neutrophils % (A) 69 %; Platelet Count 182 k/uL (150-450); RBC 4.66 m/uL (4.30-5.90); RDW 12.9 % (11.5-15.5); WBC 8.5 k/uL (3.8-10.6)
--- NOTE | 2017-12-02 23:18 | XR ---
EXAMINATION TYPE: XR KUB DATE OF EXAM: 12/02/2017 COMPARISON: 01/15/2015 HISTORY: Abdominal pain and diarrhea TECHNIQUE: 2 views FINDINGS: 2 upright views were obtained and show no sign of intestinal obstruction or pneumoperitoneu m. There are clips from cholecystectomy. There is lumbar spine fusion surgery. Lung bases are clear. There are no pathologic calcifications over the kidneys. IMPRESSION: Nonacute abdomen. No adverse change compared to old exam.
[2017-12-02 23:19] LABS: Partial Thromboplastin Time 23.1 sec (22.0-30.0)
--- NOTE | 2017-12-02 23:22 | XR ---
EXAMINATION TYPE: XR chest 2V DATE OF EXAM: 12/02/2017 COMPARISON: 09/26/2017 HISTORY: Chest pain TECHNIQUE: Frontal and lateral views of the chest are obtained. FINDINGS: Heart and mediastinum are normal. Lungs are clear. Diaphragm is normal. Bony thorax appear s normal. IMPRESSION: Normal chest. No change.
[2017-12-02 23:26] LABS: Albumin 4.3 g/dL (3.5-5.0); Potassium 4.6 mmol/L (3.5-5.1); Total Bilirubin 0.3 mg/dL (0.2-1.3); Total Protein 6.9 g/dL (6.3-8.2)
[2017-12-02 23:36] LABS: Creatine Kinase 110 U/L (55-170)
[2017-12-02 23:49] LABS: Troponin I <0.012 ng/mL (0.000-0.034)
[2017-12-03 00:02] LABS: Creatine Kinase MB 6.9 ng/mL (0.0-2.4)
[2017-12-03 00:11] LABS: Appearance,Urine Clear (Clear); Bacteria,Urine Rare /hpf; Bilirubin,Urine Negative (Negative); Blood,Urine Negative (Negative); Color,Urine Yellow; Glucose,Urine (UA) Negative (Negative); Hyaline Casts,Urine 55 /lpf (0-2); Ketones,Urine Negative (Negative); Leukocyte Esterase,Urine Negative (Negative); Mucus,Urine Rare /hpf; Nitrite,Urine Negative (Negative); PH, Urine 5.5 (5.0-8.0); Protein,Urine 1+ (Negative); RBC,Urine 1 /hpf (0-5); Specific Gravity,Urine 1.021 (1.001-1.035); Squamous Epithelial Cell,Urine <1 /hpf (0-4); Urobilinogen,Urine <2.0 mg/dL (<2.0); WBC,Urine 1 /hpf (0-5)
[2017-12-03 01:42] VITALS: BP 152/59; PULSE 74; RESP 18; TEMP 97
== END 2017-12-03 01:40 | disposition home or self-care (01) ==
LOC: EC 21:34
DX: K52.9 Noninfective gastroenteritis and colitis, unspecified (principal); I44.4 Left anterior fascicular block; E86.0 Dehydration; R07.9 Chest pain, unspecified; J34.89 Other specified disorders of nose and nasal sinuses; R05 Cough; R09.81 Nasal congestion; I10 Essential (primary) hypertension; E11.9 Type 2 diabetes mellitus without complications; K21.9 Gastro-esophageal reflux disease without esophagitis; G47.33 Obstructive sleep apnea (adult) (pediatric); F41.9 Anxiety disorder, unspecified; Z79.1 Long term (current) use of non-steroidal anti-inflammatories (NSAID); Z79.84 Long term (current) use of oral hypoglycemic drugs; Z79.899 Other long term (current) drug therapy; Z88.5 Allergy status to narcotic agent; Z88.8 Allergy status to other drugs, medicaments and biological substances; Z91.041 Radiographic dye allergy status; Z90.49 Acquired absence of other specified parts of digestive tract; Z99.89 Dependence on other enabling machines and devices; Z95.9 Presence of cardiac and vascular implant and graft, unspecified; Z98.890 Other specified postprocedural states; Z82.49 Family history of ischemic heart disease and other diseases of the circulatory system
CPT/HCPCS: 36415; 71046; 74018; 80053; 81001; 82150; 82550; 82553; 83690; 84484; 85025; 85610; 85730; 93005; 96360; 99284

== ENCOUNTER 2017-12-19 00:03 | Observation (INO) | payer MEDICARE, OTHER ==
[2017-12-19] MEDS ORDERED: ASPIRIN 81 MG PO STA (00:50)
[2017-12-19] MEDS ORDERED: NITROGLYCERIN SL TABS 0.4 MG TAB SUBLINGUAL STA (00:50)
[2017-12-19 01:07] LABS: Basophils % (A) 1 %; Eosinophils # (A) 0.3 k/uL (0-0.7); Eosinophils % (A) 4 %; HCT 34.9 % (39.0-53.0); Lymphocytes # (A) 1.9 k/uL (1.0-4.8); Lymphocytes % (A) 25 %; MCH 31.4 pg (25.0-35.0); MCHC 33.3 g/dL (31.0-37.0); MCV 94.4 fL (80.0-100.0); Mean Platelet Volume 8.7; Monocytes # (A) 0.4 k/uL (0-1.0); Monocytes % (A) 5 %; Neutrophils # (A) 4.9 k/uL (1.3-7.7); Neutrophils % (A) 64 %; Platelet Count 172 k/uL (150-450); RBC 3.69 m/uL (4.30-5.90); RDW 12.4 % (11.5-15.5); WBC 7.5 k/uL (3.8-10.6)
[2017-12-19 01:11] LABS: HGB 11.6 gm/dL (13.0-17.5)
--- NOTE | 2017-12-19 01:22 | XR ---
EXAMINATION TYPE: XR chest 1V portable DATE OF EXAM: 12/19/2017 COMPARISON: 12/02/2017 HISTORY: Weakness and dizziness TECHNIQUE: Single frontal view of the chest is obtained. FINDINGS: Heart and mediastinum are normal. Lungs are clear. Diaphragm is normal. Bony thorax is int act. IMPRESSION: Normal chest. No change.
[2017-12-19 01:32] LABS: ALT 35 U/L (21-72); AST 37 U/L (17-59); Albumin 3.4 g/dL (3.5-5.0); Alkaline Phosphatase 51 U/L (38-126); Anion Gap 8 mmol/L; Blood Urea Nitrogen 12 mg/dL (9-20); Calcium 7.9 mg/dL (8.4-10.2); Carbon Dioxide 22 mmol/L (22-30); Chloride 103 mmol/L (98-107); Glucose 131 mg/dL (74-99); Potassium 4.3 mmol/L (3.5-5.1); Sodium 133 mmol/L (137-145); Total Bilirubin 0.2 mg/dL (0.2-1.3); Total Protein 5.7 g/dL (6.3-8.2)
--- NOTE | 2017-12-19 01:35 | ED ---
Chest Pain HPI - General Chief Complaint: Dizziness Stated Complaint: Dizziness Time Seen by Provider: 12/19/17 00:36 Source: patient Mode of arrival: EMS Limitations: no limitations - History of Present Illness Initial Comments: This patient is 67-year-old man who presents to be evaluated for a number of symptoms that started approximately an hour before coming in here. The patient states that he had gotten up to use the bathroom, and then noted that he was having substernal chest pain that he felt may be indigestion. He describes as sharp, constant, mild to moderate intensity and without any worsening or relieving factors. He was going to take an antacid and then he went and sat on the couch, at which point he felt like he was getting very warm and felt like he was going to pass out. MD Complaint: chest pain -: hour(s) Onset: during rest Pain Location: substernal Pain Radiation: none Severity: mild Quality: sharp Consistency: constant Improves With: nothing Worsens With: nothing Anginal Symptoms: diaphoresis Other Symptoms: syncope (Near-syncopal episode) Treatments Prior to Arrival: none - Related Data Home Medications Medication Instructions Recorded Confirmed Hydrocodone/Acetaminophen 1 tab PO TID PRN 05/01/14 12/19/17 [Hydrocodon-Acetaminoph 7.5-325] Montelukast [Singulair] 10 mg PO DAILY 05/01/14 12/19/17 busPIRone HCl [Buspar] 10 mg PO BID 05/01/14 12/19/17 Citalopram Hydrobromide [CeleXA] 20 mg PO DAILY 09/13/17 12/19/17 Ibuprofen [Motrin] 800 mg PO BID 09/13/17 12/19/17 Lisinopril [Prinivil] 20 mg PO DAILY 09/13/17 12/19/17 Magnesium Oxide [Mag-Ox] 400 mg PO DAILY 09/13/17 12/19/17 Multivitamins, Thera [Multivitamin 1 tab PO DAILY 09/13/17 12/19/17 (formulary)] Ranitidine HCl [Zantac] 150 mg PO DAILY 09/13/17 12/19/17 metFORMIN HCL [Glucophage] 500 mg PO DAILY 09/13/17 12/19/17 Carvedilol [Coreg] 6.25 mg PO BID 12/19/17 12/19/17 Tamsulosin HCl [Flomax] 0.4 mg PO DAILY 12/19/17 12/19/17 Allergies Allergy/AdvReac Type Severity Reaction Status Date / Time dipyridamole AdvReac Nausea & Verified 12/19/17 00:14 [From Persantine] Vomiting Iodinated Contrast- Oral and AdvReac Nausea & Verified 12/19/17 00:14 IV Dye Vomiting [Iodinated Contrast Media - IV Dye] morphine AdvReac Nausea & Verified 12/19/17 00:14 Vomiting Review of Systems ROS Statement: Those systems with pertinent positive or pertinent negative responses have been documented in the HPI. ROS Other: All systems not noted in ROS Statement are negative. EKG Findings - EKG Results: EKG: interpreted by ROSALEE, sinus rhythm (Rate 60 bpm), normal axis, normal ST/T - Blocks, [place], Hypertrophy, ST Abn: AV and intraventricular conduction: left anterior fascicular block Past Medical History Past Medical History: Diabetes Mellitus, GERD/Reflux, Hyperlipidemia, Hypertension, Sleep Apnea/CPAP/BIPAP, Syncope Additional Past Medical History / Comment(s): Other HX: IDDM, ERIKA cannot tolerate CPAP, varicose veins, hiatal hernia, constipation occas bleeding with stools, hemorrhoids, hyperkalemia History of Any Multi-Drug Resistant Organisms: None Reported Past Surgical History: Back Surgery, Cholecystectomy, Heart Catheterization, Hernia Repair Additional Past Surgical History / Comment(s): arthroscopy right knee. 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
[2017-12-19] MEDS ORDERED: NITROGLYCERIN SL TABS 0.4 MG TAB SUBLINGUAL PRN (04:36)
[2017-12-19 05:40] LABS: Appearance,Urine Clear (Clear); Bilirubin,Urine Negative (Negative); Blood,Urine Negative (Negative); Color,Urine Yellow; Glucose,Urine (UA) Negative (Negative); Ketones,Urine Negative (Negative); Leukocyte Esterase,Urine Negative (Negative); Nitrite,Urine Negative (Negative); PH, Urine 5.5 (5.0-8.0); Protein,Urine Negative (Negative); Specific Gravity,Urine 1.013 (1.001-1.035); Urobilinogen,Urine <2.0 mg/dL (<2.0)
[2017-12-19 06:29] VITALS: BMI 28.3
[2017-12-19 08:08] LABS: Glucose,Whole Blood 95 mg/dL (75-99)
[2017-12-19 08:19] LABS: Creatine Kinase MB 2.3 ng/mL (0.0-2.4); Troponin I 0.013 ng/mL (0.000-0.034)
[2017-12-19] MEDS ORDERED: LISINOPRIL 20 MG TAB PO SCH (09:00)
--- NOTE | 2017-12-19 09:18 | P.CRDCN ---
History of Present Illness History of present illness: Patient interviewed and examined. He gets admitted once again for dizziness and presyncope after swallowing his pills Patient has had 3 episodes of near syncope and syncope post deglutition. Last day he had one episode This time he was sitting in bed and he swallowed his pills. Following that he developed a discomfort in the epigastrium became warm and nauseous and sweaty and very dizzy and presyncopal Last time he was eating a pizza sitting in the kitchen chair when he completely passed out. His had given painful stimulus for him to wake up History of Alban's fundoplication 2-3 years back Elevated blood pressure readings Adult onset diabetes Impression Recurrent deglutition syncope and his episodes are clearly vagally mediated and have a typical prodrome and associated features Status post Alban's fundoplication Adult-onset diabetes Hypertension Elevated LDL Suggest Provoke syncopal spells by asking the patient to swallow pills/food ,while on telemetry Hypertension management Dyslipidemia management, start atorvastatin 20 mg daily to begin with Swallowing evaluation, functional evaluation of the esophagus Past Medical History Past Medical History: Diabetes Mellitus, GERD/Reflux, Hyperlipidemia, Hypertension, Sleep Apnea/CPAP/BIPAP, Syncope Additional Past Medical History / Comment(s): Other HX: IDDM, ERIKA cannot tolerate CPAP, varicose veins, hiatal hernia, constipation occas bleeding with stools, hemorrhoids, hyperkalemia History of Any Multi-Drug Resistant Organisms: None Reported Past Surgical History: Back Surgery, Cholecystectomy, Heart Catheterization, Hernia Repair Additional Past Surgical History / Comment(s): arthroscopy right knee. bilateral cataracts,jeancarlos inguinal hernia repair, alban funloplasty Past Anesthesia/Blood Transfusion Reactions: No Reported Reaction Past Psychological History: Anxiety Smoking Status: Never smoker Past Alcohol Use History: Rare Past Drug Use History: None Reported - Past Family History Mother Additional Family Medical History / Comment(s): HAD PACEMAKER, age 86 Father Family Medical History: Dementia Medications and Allergies Home Medications Medication Instructions Recorded Confirmed Type Hydrocodone/Acetaminophen 1 tab PO TID PRN 05/01/14 12/19/17 History [Hydrocodon-Acetaminoph 7.5-325] Montelukast [Singulair] 10 mg PO DAILY 05/01/14 12/19/17 History busPIRone HCl [Buspar] 10 mg PO BID 05/01/14 12/19/17 History Citalopram Hydrobromide [CeleXA] 20 mg PO DAILY 09/13/17 12/19/17 History Ibuprofen [Motrin] 800 mg PO BID 09/13/17 12/19/17 History Lisinopril [Prinivil] 20 mg PO DAILY 09/13/17 12/19/17 History Magnesium Oxide [Mag-Ox] 400 mg PO DAILY 09/13/17 12/19/17 History Multivitamins, Thera [Multivitamin 1 tab PO DAILY 09/13/17 12/19/17 History (formulary)] Ranitidine HCl [Zantac] 150 mg PO DAILY 09/13/17 12/19/17 History metFORMIN HCL [Glucophage] 500 mg PO DAILY 09/13/17 12/19/17 History Carvedilol [Coreg] 6.25 mg PO BID 12/19/17 12/19/17 History Tamsulosin HCl [Flomax] 0.4 mg PO DAILY 12/19/17 12/19/17 History Allergies Allergy/AdvReac Type Severity Reaction Status Date / Time dipyridamole AdvReac Nausea & Verified 12/19/17 00:14 [From Persantine] Vomiting Iodinated Contrast- Oral and AdvReac Nausea & Verified 12/19/17 00:14 IV Dye Vomiting [Iodinated Contrast Media - IV Dye] morphine AdvReac Nausea & Verified 12/19/17 00:14 Vomiting Physical Exam Vitals: Vital Signs Temp Pulse Pulse Pulse Resp BP BP 12/19/17 08:00 97.8 F 53 L 18 181/99 12/19/17 06:33 52 L 16 12/19/17 06:00 98.7 F 52 L 16 12/19/17 05:28 96.8 F L 51 L 18 178/86 12/19/17 04:32 53 L 18 177/81 12/19/17 02:15 54 L 18 140/92 12/19/17 01:38 59 L 18 184/96 12/19/17 00:48 58 L 12/19/17 00:11 98.6 F 57 L 17 168/90 BP Pulse Ox 12/19/17 08:00 97 12/19/17 06:33 12/19/17 06:00 171/81 99 12/19/17 05:28 98 12/19/17 04:32 98 12/19/17 02:15 98 12/19/17 01:38 100 12/19/17 00:48 12/19/17 00:11 97 Intake and Output 12/18/17 12/19/17 12/19/17 22:59 06:59 14:59 Other: Voiding Method Toilet Toilet # Voids 1 Weight 89.358 kg Results 12/19/17 00:20 12/19/17 00:20 Cardiac Enzymes 12/19/17 12/19/17 12/19/17 Range/Units 00:20 00:20 06:50 AST 37 (17-59) U/L CK-MB (CK-2) 2.3 (0.0-2.4) ng/mL Troponin I 0.015 0.013 (0.000-0.034) ng/mL CBC 12/19/17 Range/Units 00:20 WBC 7.5 (3.8-10.6) k/uL RBC 3.69 L (4.30-5.90) m/uL Hgb 11.6 L D (13.0-17.5) gm/dL Hct 34.9 L (39.0-53.0) % Plt Count 172 (150-450) k/uL Comprehensive Metabolic Panel 12/19/17 Range/Units 00:20 Sodium 133 L (137-145) mmol/L Potassium 4.3 (3.5-5.1) mmol/L Chloride 103 (98-107) mmol/L Carbon Dioxide 22 (22-30) mmol/L BUN 12 (9-20) mg/dL Creatinine 0.90 (0.66-1.25) mg/dL Glucose 131 H (74-99) mg/dL Calcium 7.9 L (8.4-10.2) mg/dL AST 37 (17-59) U/L ALT 35 (21-72) U/L Alkaline Phosphatase 51 (38-126) U/L Total Protein 5.7 L (6.3-8.2) g/dL Albumin 3.4 L (3.5-5.0) g/dL Current Medications Generic Name Dose Route Start Last Admin Trade Name Freq PRN Reason Stop Dose Admin Hydrocodone Bitart/Acetaminophen 1 each 12/19/17 04:37 [place] 7.5-325 PO TID PRN Pain Atorvastatin Calcium 20 mg 12/19/17 09:00 Lipitor PO DAILY [facility] Buspirone HCl 10 mg 12/19/17 09:00 Buspar PO BID [facility] Carvedilol 6.25 mg 12/19/17 07:30 Coreg PO AC-BID [facility] Citalopram Hydrobromide 20 mg 12/19/17 09:00 Celexa PO DAILY [facility] Famotidine 20 mg 12/19/17 09:00 Pepcid PO DAILY [facility] Ibuprofen 800 mg 12/19/17 09:00 Motrin PO BID [facility] Lisinopril 20 mg 12/19/17 09:00 Zestril PO BID [facility] Magnesium Oxide 400 mg 12/19/17 09:00 Mag-Ox PO DAILY [facility] Metformin HCl 500 mg 12/19/17 07:30 Glucophage PO AC-BRKFST [facility] Montelukast Sodium 10 mg 12/19/17 09:00 Singulair PO DAILY [facility] Multivitamins 1 each 12/19/17 09:00 Theragran PO DAILY [facility] Nitroglycerin 0.4 mg 12/19/17 04:36 Nitrostat SUBLINGUAL Q5M PRN Chest Pain Sodium Chloride 10 ml 12/19/17 09:00 Saline Flush IV BID [facility] Tamsulosin HCl 0.4 mg 12/19/17 09:00 Flomax PO DAILY [facility] Intake and Output 12/18/17 12/19/17 12/19/17 22:59 06:59 14:59 Other: Voiding Method Toilet Toilet # Voids 1 Weight 89.358 kg 12/19/17 00:20 12/19/17 00:20
[2017-12-19] MEDS: TAMSULOSIN 0.4 MG CAP.ER.24H PO SCH (09:33)
[2017-12-19] MEDS: MULTIVITAMINS, THERA 1 EACH TAB PO SCH (09:34)
[2017-12-19] MEDS: IBUPROFEN 800 MG TAB PO SCH ×2 (09:34→20:55)
[2017-12-19] MEDS: LISINOPRIL 20 MG TAB PO SCH ×2 (09:34→20:55)
[2017-12-19] MEDS: MONTELUKAST 10 MG TAB PO SCH (09:35)
[2017-12-19] MEDS: MAGNESIUM OXIDE 400 MG TAB PO SCH (09:35)
[2017-12-19] MEDS: metFORMIN 500 MG TAB PO SCH (09:35)
[2017-12-19] MEDS: busPIRone HCl 10 MG TAB PO SCH ×2 (09:35→20:55)
[2017-12-19] MEDS: CARVEDILOL 6.25 MG TAB PO SCH ×2 (09:35→17:46)
[2017-12-19] MEDS: CITALOPRAM HYDROBROMIDE 20 MG TAB PO SCH (09:35)
[2017-12-19] MEDS: FAMOTIDINE 20 MG TAB PO SCH (09:35)
[2017-12-19] MEDS: ATORVASTATIN 20 MG TAB PO SCH ×2 (09:41→20:55)
--- NOTE | 2017-12-19 11:31 | HP ---
HISTORY AND PHYSICAL SUBJECTIVE: A 67-year-old white male admitted with dizziness, presyncope after swallowing pills, near syncope, status post deglutition. He had swallowed some pills. He had some epigastric pain, dizziness, presyncopal possibly passed out, . Recently he had Ben fundoplication. Elevated blood pressure readings. Adult onset diabetes mellitus. REVIEW OF SYSTEMS: Fourteen point review of systems negative except for mentioned in HPI. PAST MEDICAL HISTORY: Diabetes mellitus, GERD, dyslipidemia, hypertension, obstructive sleep apnea, insulin-dependent diabetes mellitus, varicose veins, hiatal hernia, constipation, hemorrhoids, hyperkalemia. SURGERIES: Back surgery, cholecystectomy, hernia repair, Ben fundoplication, inguinal hernia repair. SOCIAL HISTORY: No smoking. No alcohol. No illicit drugs. FAMILY HISTORY: Mother sabrina pacemaker. Father had dementia. HOME MEDICATIONS: 1. [place]. 2. Singulair. 3. BuSpar. 4. Celexa. 5. Motrin. 6. Prinivil. 7. Mag-Ox. 8. Multivitamins. 9. Zantac. 10.Glucophage. 11.Coreg. 12.Tamsulosin. ALLERGIES: Allergies are DIPYRIDAMOLE, IODINE, MORPHINE. PHYSICAL EXAMINATION: VITAL SIGNS: Temp 97 to 98, pulse 50s, respirations 16 to 18, blood pressure 170s to 180s over 80 to 90s. CARDIOVASCULAR: S1, S2. LUNGS: Transmitted upper airway sounds. HEMATOLOGY: Negative Homans. PSYCH: Fair mood and affect. NEUROLOGIC: Alert and oriented x3. ENDOCRINE: BMI is over 30. LABS: Labs are reviewed. ASSESSMENT: 1. Atypical chest pain, rule out myocardial infarction. 2. Diabetes mellitus. 3. Acute on chronic anemia. 4. Hyponatremia. 5. Presyncopal episode. Await cardiac recommendations to rule out syncopal hypertension acceleration. Continue blood pressures . I will continue with cholesterol medications. Please see further orders. MMODL / IJN: [id number] /
[2017-12-19 12:07] LABS: Hemoglobin A1C 6.6 % (4.0-6.0)
[2017-12-19 12:29] LABS: Glucose,Whole Blood 113 mg/dL (75-99)
--- NOTE | 2017-12-19 13:20 | P.CRDCN ---
History of Present Illness History of present illness: Mr. Taylor is a pleasant 67-year-old male past medical history significant for hypertension, dyslipdiemia, diabetes mellitus, gastroesophageal reflux disease and sleep apnea. He follows with Dr. Jaramillo in the office. We have been asked to see him in consultation for chest pain and syncope. He states last evening he was lying in bed and he drank a bottle of water. Almost immediately after drinking the water he started feeling a discomfort in the epigastric region. At that time he stood up and walks to the couch where he was going to take some Tums for relief of his epigastric burning. He took the Tums and then immediately became very dizzy, diaphoretic and nauseated. The symptoms lasted approximately 5 minutes. Similar episode occurred a few months back after he was eating some pizza in the kitchen with his . He denies associated palpitations, vomiting, shortness of breath. She has had no further episodes of dizziness since admission. EKG reveals sinus mechanism with no acute ST or T wave abnormalities noted. Chest x-ray is negative for an acute cardiopulmonary process. Laboratory data reviewed, cardiac enzymes negative 2, creatinine 0.9, potassium 4.3, sodium 133, hemoglobin 11.6 and platelets 172. Current cardiac medications include carvedilol 6.25 mg twice a day and lisinopril 20 mg daily. He underwent a Lexiscan stress test January 2017 which was negative for reversible cardiac ischemia and again in September of this year he did a dobutamine stress echocardiogram which was negative for stress-induced cardiac ischemia. Most recent echocardiogram reveals preserved left ventricular systolic function with ejection fraction 55-60%, moderately dilated left atrium and mild TR. Review of Systems At the time of my exam: CONSTITUTIONAL: Denies fever. Denies chills. EYES: Denies blurred vision. Denies vision changes. Denies eye pain. EARS, NOSE, MOUTH & THROAT: Denies headache. Denies sore throat. Denies ear pain. CARDIOVASCULAR: Denies chest pain. Denies shortness of breath. Denies orthopnea. Denies PND. Denies palpitations. RESPIRATORY: Denies cough. GASTROINTESTINAL: Denies abdominal pain. Denies diarrhea. Denies constipation. Denies nausea. Denies vomiting. MUSCULOSKELETAL: Denies myalgias. INTEGUMENTARY: Denies pruitis. Denies rash. NEUROLOGIC: Denies numbness. Denies tingling. Denies weakness. PSYCHIATRIC: Denies anxiety. Denies depression. ENDOCRINE: Denies fatigue. Denies weight change. Denies polydipsia. Denies polyurina. GENITOURINARY: Denies burning, hematuria or urgency with micturation. HEMATOLOGIC: Denies history of anemia. Denies bleeding. Past Medical History Past Medical History: Diabetes Mellitus, GERD/Reflux, Hyperlipidemia, Hypertension, Sleep Apnea/CPAP/BIPAP, Syncope Additional Past Medical History / Comment(s): Other HX: IDDM, ERIKA cannot tolerate CPAP, varicose veins, hiatal hernia, constipation occas bleeding with stools, hemorrhoids, hyperkalemia History of Any Multi-Drug Resistant Organisms: None Reported Past Surgical History: Back Surgery, Cholecystectomy, Heart Catheterization, Hernia Repair Additional Past Surgical History / Comment(s): arthroscopy right knee. bilateral cataracts,jeancarlos inguinal hernia repair, alban funloplasty Past Anesthesia/Blood Transfusion Reactions: No Reported Reaction Past Psychological History: Anxiety Smoking Status: Never smoker Past Alcohol Use History: Rare Past Drug Use History: None Reported - Past Family History Mother Additional Family Medical History / Comment(s): HAD PACEMAKER, age 86 Father Family Medical History: Dementia Medications and Allergies Home Medications Medication Instructions Recorded Confirmed Type Hydrocodone/Acetaminophen 1 tab PO TID PRN 05/01/14 12/19/17 History [Hydrocodon-Acetaminoph 7.5-325] Montelukast [Singulair] 10 mg PO DAILY 05/01/14 12/19/17 History busPIRone HCl [Buspar] 10 mg PO BID 05/01/14 12/19/17 History Citalopram Hydrobromide [CeleXA] 20 mg PO DAILY 09/13/17 12/19/17 History Ibuprofen [Motrin] 800 mg PO BID 09/13/17 12/19/17 History Lisinopril [Prinivil] 20 mg PO DAILY 09/13/17 12/19/17 History Magnesium Oxide [Mag-Ox] 400 mg PO DAILY 09/13/17 12/19/17 History Multivitamins, Thera [Multivitamin 1 tab PO DAILY 09/13/17 12/19/17 History (formulary)] Ranitidine HCl [Zantac] 150 mg PO DAILY 09/13/17 12/19/17 History metFORMIN HCL [Glucophage] 500 mg PO DAILY 09/13/17 12/19/17 History Carvedilol [Coreg] 6.25 mg PO BID 12/19/17 12/19/17 History Tamsulosin HCl [Flomax] 0.4 mg PO DAILY 12/19/17 12/19/17 History Allergies Allergy/AdvReac Type Severity Reaction Status Date / Time dipyridamole AdvReac Nausea & Verified 12/19/17 00:14 [From Persantine] Vomiting Iodinated Contrast- Oral and AdvReac Nausea & Verified 12/19/17 00:14 IV Dye Vomiting [Iodinated Contrast Media - IV Dye] morphine AdvReac Nausea & Verified 12/19/17 00:14 Vomiting Physical Exam Vitals: Vital Signs Temp Pulse Pulse Pulse Pulse Pulse Pulse 12/19/17 11:20 97.6 F 57 L 58 L 56 L 12/19/17 08:00 97.8 F 53 L 12/19/17 06:33 52 L 12/19/17 06:00 98.7 F 52 L 12/19/17 05:28 96.8 F L 51 L 12/19/17 04:32 53 L 12/19/17 02:15 54 L 12/19/17 01:38 59 L 12/19/17 00:48 58 L 12/19/17 00:11 98.6 F 57 L Resp BP BP BP BP BP BP 12/19/17 11:20 18 160/84 162/89 159/78 12/19/17 08:00 18 181/99 12/19/17 06:33 16 12/19/17 06:00 16 171/81 12/19/17 05:28 18 178/86 12/19/17 04:32 18 177/81 12/19/17 02:15 18 140/92 12/19/17 01:38 18 184/96 12/19/17 00:48 12/19/17 00:11 17 168/90 Pulse Ox 12/19/17 11:20 97 12/19/17 08:00 97 12/19/17 06:33 12/19/17 06:00 99 12/19/17 05:28 98 12/19/17 04:32 98 12/19/17 02:15 98 12/19/17 01:38 100 07/16/18 00:48 12/19/17 00:11 97 Intake and Output 12/18/17 12/19/17 12/19/17 22:59 06:59 14:59 Other: Voiding Method Toilet Toilet # Voids 1 Weight 89.358 kg Blood pressure 159/78 heart rate 56 afebrile maintaining oxygen saturation on room air GENERAL: This is a 67-year-old male in no apparent distress at the time of my examination. HEENT: Head is atraumatic, normocephalic. Pupils are equal, round. Sclerae anicteric. Conjunctivae are clear. Mucous membranes of the mouth are moist. Neck is supple. There is no jugular venous distention. No carotid bruit is heard. LUNGS: Clear to auscultation no wheezes, rales or rhonchi. No chest wall tenderness is noted on palpation or with deep breathing. HEART: Regular rate and rhythm without murmurs, rubs or gallops. S1 and S2 heard. ABDOMEN: Soft, nontender. Bowel sounds are heard. No organomegaly noted. EXTREMITIES: No evidence of peripheral edema and no calf tenderness noted. VASCULAR: Radial and dorsalis pedis pulses palpated, no evidence of clubbing. NEUROLOGIC: Patient is awake, alert and oriented x3. Results 12/19/17 00:20 12/19/17 00:20 Cardiac Enzymes 12/19/17 12/19/17 12/19/17 Range/Units 00:20 00:20 06:50 AST 37 (17-59) U/L CK-MB (CK-2) 2.3 (0.0-2.4) ng/mL Troponin I 0.015 0.013 (0.000-0.034) ng/mL CBC 12/19/17 Range/Units 00:20 WBC 7.5 (3.8-10.6) k/uL RBC 3.69 L (4.30-5.90) m/uL Hgb 11.6 L D (13.0-17.5) gm/dL Hct 34.9 L (39.0-53.0) % Plt Count 172 (150-450) k/uL Comprehensive Metabolic Panel 12/19/17 Range/Units 00:20 Sodium 133 L (137-145) mmol/L Potassium 4.3 (3.5-5.1) mmol/L Chloride 103 (98-107) mmol/L Carbon Dioxide 22 (22-30) mmol/L BUN 12 (9-20) mg/dL Creatinine 0.90 (0.66-1.25) mg/dL Glucose 131 H (74-99) mg/dL Calcium 7.9 L (8.4-10.2) mg/dL AST 37 (17-59) U/L ALT 35 (21-72) U/L Alkaline Phosphatase 51 (38-126) U/L Total Protein 5.7 L (6.3-8.2) g/dL Albumin 3.4 L (3.5-5.0) g/dL Current Medications Generic Name Dose Route Start Last Admin Trade Name Freq PRN Reason Stop Dose Admin Hydrocodone Bitart/Acetaminophen 1 each 12/19/17 04:37 [place] 7.5-325 PO TID PRN Pain Atorvastatin Calcium 20 mg 12/19/17 09:00 12/19/17 09:41 Lipitor PO 20 mg DAILY [facility] Administration Buspirone HCl 10 mg 12/19/17 09:00 12/19/17 09:35 Buspar PO 10 mg BID [facility] Administration Carvedilol 6.25 mg 12/19/17 07:30 12/19/17 09:35 Coreg PO 6.25 mg AC-BID [facility] Administration Citalopram Hydrobromide 20 mg 12/19/17 09:00 12/19/17 09:35 Celexa PO 20 mg DAILY [facility] Administration Famotidine 20 mg 12/19/17 09:00 12/19/17 09:35 Pepcid PO 20 mg DAILY [facility] Administration Ibuprofen 800 mg 12/19/17 09:00 12/19/17 09:34 Motrin PO 800 mg BID [facility] Administration Lisinopril 20 mg 12/19/17 09:00 12/19/17 09:34 Zestril PO 20 mg BID [facility] Administration Magnesium Oxide 400 mg 12/19/17 09:00 12/19/17 09:35 Mag-Ox PO 400 mg DAILY [facility] Administration Metformin HCl 500 mg 12/19/17 07:30 12/19/17 09:35 Glucophage PO 500 mg AC-BRKFST [facility] Administration Montelukast Sodium 10 mg 12/19/17 09:00 12/19/17 09:35 Singulair PO 10 mg DAILY [facility] Administration Multivitamins 1 each 12/19/17 09:00 12/19/17 09:34 Theragran PO 1 each DAILY [facility] Administration Nitroglycerin 0.4 mg 12/19/17 04:36 Nitrostat SUBLINGUAL Q5M PRN Chest Pain Sodium Chloride 10 ml 12/19/17 09:00 12/19/17 09:34 Saline Flush IV 10 ml BID [facility] Administration Tamsulosin HCl 0.4 mg 12/19/17 09:00 12/19/17 09:33 Flomax PO 0.4 mg DAILY [facility] Administration Intake and Output 12/18/17 12/19/17 12/19/17 22:59 06:59 14:59 Other: Voiding Method Toilet Toilet # Voids 1 Weight 89.358 kg 12/19/17 00:20 12/19/17 00:20 Assessment and Plan Assessment: ASSESSMENT Recurrent pre-syncopal episodes, vasovagal in nature Status post nisin fundoplication Diabetes mellitus Hypertension Dyslipidemia PLAN Initiate atorvastatin 20 mg daily. Attempt to provoke syncopal spells by asking the patient to swallow pills/food on telemetry. Recommend functional evaluation of the esophagus. Thank you kindly for this consultation. Nurse Practitioner note has been reviewed, I agree with a documented findings and plan of care. Patient was seen and examined.
[2017-12-19 13:21] LABS: Creatine Kinase 64 U/L (55-170)
[2017-12-19 13:32] LABS: Troponin I <0.012 ng/mL (0.000-0.034)
[2017-12-19 13:36] LABS: Creatine Kinase MB 2.5 ng/mL (0.0-2.4)
[2017-12-19 17:24] LABS: Glucose,Whole Blood 121 mg/dL (75-99)
[2017-12-19] MEDS: HYDROcodone/APAP 7.5-325MG 1 EACH TAB PO PRN (19:20)
[2017-12-19 20:19] LABS: Glucose,Whole Blood 193 mg/dL (75-99)
[2017-12-20 02:50] LABS: Cholesterol 190 mg/dL (<200); HDL Cholesterol 33 mg/dL (40-60); Triglycerides 424 mg/dL (<150)
[2017-12-20 07:07] LABS: Glucose,Whole Blood 102 mg/dL (75-99)
[2017-12-20 08:24] VITALS: RESP 18
[2017-12-20] MEDS: CARVEDILOL 6.25 MG TAB PO SCH (08:59)
[2017-12-20] MEDS: TAMSULOSIN 0.4 MG CAP.ER.24H PO SCH (08:59)
[2017-12-20] MEDS: CITALOPRAM HYDROBROMIDE 20 MG TAB PO SCH (08:59)
[2017-12-20] MEDS: FAMOTIDINE 20 MG TAB PO SCH (08:59)
[2017-12-20] MEDS: MULTIVITAMINS, THERA 1 EACH TAB PO SCH (08:59)
[2017-12-20] MEDS: IBUPROFEN 800 MG TAB PO SCH (09:00)
[2017-12-20] MEDS ORDERED: ASPIRIN 325 MG TAB PO SCH (09:00)
[2017-12-20] MEDS: LISINOPRIL 20 MG TAB PO SCH (09:00)
[2017-12-20] MEDS: metFORMIN 500 MG TAB PO SCH (09:00)
[2017-12-20] MEDS: MONTELUKAST 10 MG TAB PO SCH (09:00)
[2017-12-20] MEDS: busPIRone HCl 10 MG TAB PO SCH (09:00)
[2017-12-20] MEDS: MAGNESIUM OXIDE 400 MG TAB PO SCH (09:00)
--- NOTE | 2017-12-20 09:55 | P.PN ---
Subjective Mr. Taylor is seen and examined sitting up in bed eating breakfast. He denies any further symptoms of dizziness. Telemetry tracings have been unremarkable. Orthostatic vital signs negative. We have been unable to reproduce his symptoms with eating thus far. Blood pressure 134/79 heart rate 52 afebrile. Cardia cenzymes negative x3. Objective - Vital Signs Vital signs: Vital Signs Temp 97.4 F L 12/20/17 07:55 Pulse 52 L 12/20/17 07:55 Resp 18 12/20/17 07:55 BP 134/79 12/20/17 07:55 Pulse Ox 98 12/20/17 07:55 Intake & Output 12/19/17 12/20/17 12/20/17 18:59 06:59 18:59 Intake Total 472 Balance 472 Intake: Oral 472 Other: Voiding Method Toilet Toilet # Voids 1 - Exam GENERAL: Well-appearing, well-nourished and in no acute distress. NECK: Supple without JVD or thyromegaly. LUNGS: Breath sounds clear to auscultation bilaterally. Respiration equal and unlabored. No wheezes, rales or rhonchi. HEART: Regular rate and rhythm without murmurs, rubs or gallops. S1 and S2 heard. EXTREMITIES: Normal range of motion, no edema. No clubbing or cyanosis. Peripheral pulses intact. - Labs CBC & Chem 7: 12/19/17 00:20 12/19/17 00:20 Labs: Abnormal Lab Results - Last 24 Hours (Table) 12/19/17 12/19/17 12/19/17 Range/Units 00:20 00:20 12:26 POC Glucose (mg/dL) 113 H (75-99) mg/dL Hemoglobin A1c 6.6 H (4.0-6.0) % CK-MB (CK-2) (0.0-2.4) ng/mL Triglycerides 424 H (<150) mg/dL HDL Cholesterol 33 L (40-60) mg/dL 12/19/17 12/19/17 12/19/17 Range/Units 12:45 17:20 20:16 POC Glucose (mg/dL) 121 H 193 H (75-99) mg/dL Hemoglobin A1c (4.0-6.0) % CK-MB (CK-2) 2.5 H* (0.0-2.4) ng/mL Triglycerides (<150) mg/dL HDL Cholesterol (40-60) mg/dL 12/20/17 Range/Units 07:03 POC Glucose (mg/dL) 102 H (75-99) mg/dL Hemoglobin A1c (4.0-6.0) % CK-MB (CK-2) (0.0-2.4) ng/mL Triglycerides (<150) mg/dL HDL Cholesterol (40-60) mg/dL Assessment and Plan Assessment: ASSESSMENT Recurrent pre-syncopal episodes, vasovagal in nature Status post nisin fundoplication Diabetes mellitus Hypertension Dyslipidemia PLAN Stable from a cardiac perspective for discharge. Will apply a 30-day event monitor. Report to his primary bordereau clerk Dr. Jaramillo. Follow up appointment in 5-6 weeks. Continue atorvastatin. Recommend outpatient evaluation of esophagus per his surgeon Dr. Cuevas. Nurse Practitioner note has been reviewed, I agree with a documented findings and plan of care. Patient was seen and examined.
[2017-12-20] MEDS: HYDROcodone/APAP 7.5-325MG 1 EACH TAB PO PRN (11:32)
[2017-12-20 12:20] VITALS: BP 173/88; TEMP 97.8
[2017-12-20 12:26] LABS: Glucose,Whole Blood 110 mg/dL (75-99)
[2017-12-20 12:28] VITALS: PULSE 59
== END 2017-12-20 14:40 | disposition home or self-care (01) ==
LOC: EC 00:03 → 3SUR 04:37 → 3OBS 07:42
PROVIDERS: ADMIT Family Medicine; ATTEND Family Medicine
DX: R07.89 Other chest pain (principal); R55 Syncope and collapse; D64.9 Anemia, unspecified; R61 Generalized hyperhidrosis; E87.1 Hypo-osmolality and hyponatremia; R13.10 Dysphagia, unspecified; K21.9 Gastro-esophageal reflux disease without esophagitis; K59.00 Constipation, unspecified; K44.9 Diaphragmatic hernia without obstruction or gangrene; E87.5 Hyperkalemia; E11.9 Type 2 diabetes mellitus without complications; I10 Essential (primary) hypertension; E78.5 Hyperlipidemia, unspecified; I83.90 Asymptomatic varicose veins of unspecified lower extremity; F41.9 Anxiety disorder, unspecified; K64.9 Unspecified hemorrhoids; G47.33 Obstructive sleep apnea (adult) (pediatric); Z98.890 Other specified postprocedural states; Z79.899 Other long term (current) drug therapy; Z79.1 Long term (current) use of non-steroidal anti-inflammatories (NSAID); Z79.84 Long term (current) use of oral hypoglycemic drugs; Z88.5 Allergy status to narcotic agent; Z91.041 Radiographic dye allergy status; Z88.8 Allergy status to other drugs, medicaments and biological substances; Z90.49 Acquired absence of other specified parts of digestive tract; Z87.19 Personal history of other diseases of the digestive system; Z82.49 Family history of ischemic heart disease and other diseases of the circulatory system; Z81.8 Family history of other mental and behavioral disorders
CPT/HCPCS: 99285 ×2; 36415; 93005; 93270; 93271; 80061; 80053; 82550; 82553; 83605; 84484; 85025; 81003; 83036; 71045; G0378 ×2

== ENCOUNTER 2017-12-27 13:49 | Observation (INO) | payer MEDICARE, OTHER ==
[2017-12-27] MEDS ORDERED: NITROGLYCERIN OINT 1 INCH/GM PACKET TOPICAL STA (13:54)
--- NOTE | 2017-12-27 13:57 | ED ---
General Adult HPI - General Stated complaint: Chest Pain Time Seen by Provider: 12/27/17 13:49 Source: RN notes reviewed - History of Present Illness Initial comments: This is a 67-year-old male who presents emergency department with a past medical history significant for diabetes high blood pressure high cholesterol. Patient comes in today stating that at home at about noon he started becoming lightheaded having severe chest pressure becoming very diaphoretic and short of breath. Patient states he thought he might pass out but did not. EMS arrived at the scene his blood pressure was right around 100 systolic slightly did not give any nitroglycerin but did give him an aspirin. Patient stated they got on oxygen got cool down and was feeling considerably better though he still complains of some mild chest pressure. No shortness of breath at this time. Patient denies any recent fever chills or cough. Patient states he does have a mild headache but is no longer dizzy or lightheaded. Patient denies any abdominal pain patient denies any recent nausea vomiting diarrhea. Patient denies any numbness or weakness. - Related Data Home Medications Medication Instructions Recorded Confirmed Hydrocodone/Acetaminophen 1 tab PO TID PRN 05/01/14 12/27/17 [Hydrocodon-Acetaminoph 7.5-325] Montelukast [Singulair] 10 mg PO DAILY 05/01/14 12/27/17 busPIRone HCl [Buspar] 10 mg PO BID 05/01/14 12/27/17 Citalopram Hydrobromide [CeleXA] 20 mg PO DAILY 09/13/17 12/27/17 Ibuprofen [Motrin] 800 mg PO BID 09/13/17 12/27/17 Lisinopril [Prinivil] 20 mg PO DAILY 09/13/17 12/27/17 Magnesium Oxide [Mag-Ox] 400 mg PO DAILY 09/13/17 12/27/17 Multivitamins, Thera [Multivitamin 1 tab PO DAILY 09/13/17 12/27/17 (formulary)] Ranitidine HCl [Zantac] 150 mg PO DAILY 09/13/17 12/27/17 metFORMIN HCL [Glucophage] 500 mg PO DAILY 09/13/17 12/27/17 Carvedilol [Coreg] 6.25 mg PO BID 12/19/17 12/27/17 Tamsulosin HCl [Flomax] 0.4 mg PO DAILY 12/19/17 12/27/17 Previous Rx's Medication Instructions Recorded Atorvastatin [Lipitor] 20 mg PO DAILY #30 tab 12/20/17 Allergies Allergy/AdvReac Type Severity Reaction Status Date / Time dipyridamole AdvReac Nausea & Verified 12/27/17 14:14 [From Persantine] Vomiting Iodinated Contrast- Oral and AdvReac Nausea & Verified 12/27/17 14:14 IV Dye Vomiting [Iodinated Contrast Media - IV Dye] morphine AdvReac Nausea & Verified 12/27/17 14:14 Vomiting Review of Systems ROS Statement: Those systems with pertinent positive or pertinent negative responses have been documented in the HPI. ROS Other: All systems not noted in ROS Statement are negative. Past Medical History Past Medical History: Diabetes Mellitus, GERD/Reflux, Hyperlipidemia, Hypertension, Sleep Apnea/CPAP/BIPAP, Syncope Additional Past Medical History / Comment(s): Other HX: IDDM, ERIKA cannot tolerate CPAP, varicose veins, hiatal hernia, constipation occas bleeding with stools, hemorrhoids, hyperkalemia History of Any Multi-Drug Resistant Organisms: None Reported Past Surgical History: Back Surgery, Cholecystectomy, Heart Catheterization, Hernia Repair Additional Past Surgical History / Comment(s): arthroscopy right knee. bilateral cataracts,jeancarlos inguinal hernia repair, alban funloplasty Past Anesthesia/Blood Transfusion Reactions: No Reported Reaction Past Psychological History: Anxiety Smoking Status: Never smoker Past Alcohol Use History: Rare Past Drug Use History: None Reported - Past Family History Mother Additional Family Medical History / Comment(s): HAD PACEMAKER, age 86 Father Family Medical History: Dementia General Exam - General Exam Comments Initial Comments: GENERAL: Patient is well-developed and well-nourished. Patient is nontoxic and well- hydrated and is in mild distress. Patient is grossly diaphoretic and his clothes are soaking wet ENT: Neck is soft and supple. No significant lymphadenopathy is noted. Oropharynx is clear. Moist mucous membranes. Neck has full range of motion without eliciting any pain. EYES: The sclera were anicteric and conjunctiva were pink and moist. Extraocular movements were intact and pupils were equal round and reactive to light. Eyelids were unremarkable. PULMONARY: Unlabored respirations. Good breath sounds bilaterally. No audible rales rhonchi or wheezing was noted. CARDIOVASCULAR: There is a regular rate and rhythm without any murmurs gallops or rubs. ABDOMEN: Soft and nontender with normal bowel sounds. No palpable organomegaly was noted. There is no palpable pulsatile mass. SKIN: Skin is clear with no lesions or rashes and otherwise unremarkable. NEUROLOGIC: Patient is alert and oriented x3. Cranial nerves II through XII are grossly intact. Motor and sensory are also intact. Normal speech, volume and content. Symmetrical smile. MUSCULOSKELETAL: Normal extremities with adequate strength and full range of motion. No lower extremity swelling or edema. No calf tenderness. LYMPHATICS: No significant lymphadenopathy is noted PSYCHIATRIC: Normal psychiatric evaluation. Course Vital Signs 12/27/17 13:52 Temperature 98.3 F Pulse Rate 60 Respiratory 16 Rate Blood Pressure 129/76 O2 Sat by Pulse 95 Oximetry Medical Decision Making - Medical Decision Making EKG shows sinus bradycardia 50 bpm OH interval is 152 QRS is under QT intervals 424 QTC is 416. Patient's EKG shows no ST segment elevation or depression or T- wave abnormalities noted. Chest x-ray shows no acute abnormality. I started the patient heparin because of the severity of his clinical symptoms. Patient was extremely diaphoretic on admission. I spoke with Dr. Gaona he agreed to admit the patient admitted the patient I wrote admitting orders I consult cardiology. I continue the heparin Nitropaste and aspirin on the floor - Lab Data Result diagrams: 12/27/17 14:00 12/27/17 14:00 Lab Results 12/27/17 12/27/17 12/27/17 Range/Units 14:00 14:00 14:00 WBC 8.4 (3.8-10.6) k/uL RBC 4.29 L (4.30-5.90) m/uL Hgb 13.7 (13.0-17.5) gm/dL Hct 40.2 (39.0-53.0) % MCV 93.7 (80.0-100.0) fL MCH 31.9 (25.0-35.0) pg MCHC 34.1 (31.0-37.0) g/dL RDW 12.7 (11.5-15.5) % Plt Count 164 (150-450) k/uL Neutrophils % 64 % Lymphocytes % 24 % Monocytes % 6 % Eosinophils % 4 % Basophils % 0 % Neutrophils # 5.4 (1.3-7.7) k/uL Lymphocytes # 2.0 (1.0-4.8) k/uL Monocytes # 0.5 (0-1.0) k/uL Eosinophils # 0.3 (0-0.7) k/uL Basophils # 0.0 (0-0.2) k/uL PT (9.0-12.0) sec INR (<1.2) APTT (22.0-30.0) sec Sodium 136 L (137-145) mmol/L Potassium 4.0 (3.5-5.1) mmol/L Chloride 102 (98-107) mmol/L Carbon Dioxide 24 (22-30) mmol/L Anion Gap 10 mmol/L BUN 13 (9-20) mg/dL Creatinine 1.20 (0.66-1.25) mg/dL Est GFR (CKD-EPI)AfAm 72 (>60 ml/min/1.73 sqM) Est GFR (CKD-EPI)NonAf 62 (>60 ml/min/1.73 sqM) Glucose 184 H (74-99) mg/dL Calcium 9.2 (8.4-10.2) mg/dL Magnesium 1.7 (1.6-2.3) mg/dL Total Bilirubin 0.8 (0.2-1.3) mg/dL AST 22 (17-59) U/L ALT 28 (21-72) U/L Alkaline Phosphatase 65 (38-126) U/L Total Creatine Kinase 99 (55-170) U/L CK-MB (CK-2) 3.8 H* (0.0-2.4) ng/mL CK-MB (CK-2) Rel Index 3.8 Troponin I <0.012 (0.000-0.034) ng/mL Total Protein 6.4 (6.3-8.2) g/dL Albumin 4.1 (3.5-5.0) g/dL 12/27/17 Range/Units 14:00 WBC (3.8-10.6) k/uL RBC (4.30-5.90) m/uL Hgb (13.0-17.5) gm/dL Hct (39.0-53.0) % MCV (80.0-100.0) fL MCH (25.0-35.0) pg MCHC (31.0-37.0) g/dL RDW (11.5-15.5) % Plt Count (150-450) k/uL Neutrophils % % Lymphocytes % % Monocytes % % Eosinophils % % Basophils % % Neutrophils # (1.3-7.7) k/uL Lymphocytes # (1.0-4.8) k/uL Monocytes # (0-1.0) k/uL Eosinophils # (0-0.7) k/uL Basophils # (0-0.2) k/uL PT 10.4 (9.0-12.0) sec INR 1.1 (<1.2) APTT 22.8 (22.0-30.0) sec Sodium (137-145) mmol/L Potassium (3.5-5.1) mmol/L Chloride (98-107) mmol/L Carbon Dioxide (22-30) mmol/L Anion Gap mmol/L BUN (9-20) mg/dL Creatinine (0.66-1.25) mg/dL Est GFR (CKD-EPI)AfAm (>60 ml/min/1.73 sqM) Est GFR (CKD-EPI)NonAf (>60 ml/min/1.73 sqM) Glucose (74-99) mg/dL Calcium (8.4-10.2) mg/dL Magnesium (1.6-2.3) mg/dL Total Bilirubin (0.2-1.3) mg/dL AST (17-59) U/L ALT (21-72) U/L Alkaline Phosphatase (38-126) U/L Total Creatine Kinase (55-170) U/L CK-MB (CK-2) (0.0-2.4) ng/mL CK-MB (CK-2) Rel Index Troponin I (0.000-0.034) ng/mL Total Protein (6.3-8.2) g/dL Albumin (3.5-5.0) g/dL Critical Care Time Critical Care Time: Yes Total Critical Care Time: 35 Disposition Clinical Impression: Unstable angina pectoris Disposition: ADMITTED IP TO THIS [facility] Referrals: Hawk Gaona MD [Primary Care Provider] - 1-2 days Time of Disposition: 15:10
[2017-12-27 14:26] LABS: Albumin 4.1 g/dL (3.5-5.0); Magnesium 1.7 mg/dL (1.6-2.3); Total Bilirubin 0.8 mg/dL (0.2-1.3); Total Protein 6.4 g/dL (6.3-8.2)
[2017-12-27 14:32] LABS: INR 1.1 (<1.2); Partial Thromboplastin Time 22.8 sec (22.0-30.0); Prothrombin Time 10.4 sec (9.0-12.0)
[2017-12-27 14:33] LABS: Basophils % (A) 0 %; Eosinophils # (A) 0.3 k/uL (0-0.7); Eosinophils % (A) 4 %; HCT 40.2 % (39.0-53.0); HGB 13.7 gm/dL (13.0-17.5); Lymphocytes % (A) 24 %; MCH 31.9 pg (25.0-35.0); MCHC 34.1 g/dL (31.0-37.0); MCV 93.7 fL (80.0-100.0); Mean Platelet Volume 8.6; Monocytes # (A) 0.5 k/uL (0-1.0); Monocytes % (A) 6 %; Neutrophils # (A) 5.4 k/uL (1.3-7.7); Neutrophils % (A) 64 %; Platelet Count 164 k/uL (150-450); RBC 4.29 m/uL (4.30-5.90); RDW 12.7 % (11.5-15.5); WBC 8.4 k/uL (3.8-10.6)
--- NOTE | 2017-12-27 14:38 | XR ---
EXAMINATION TYPE: XR chest 2V DATE OF EXAM: 12/27/2017 COMPARISON: NONE HISTORY: Shortness of breath and chest pain TECHNIQUE: Frontal and lateral views of the chest are obtained. FINDINGS: There is no focal air space opacity, pleural effusion, or pneumothorax seen. The cardiac silhouette size is within normal limits. The osseous structures are intact. Mild multilevel degener ative changes of the thoracic spine are seen. IMPRESSION: No acute cardiopulmonary process.
[2017-12-27 14:40] LABS: Creatine Kinase 99 U/L (55-170)
[2017-12-27 14:46] LABS: Calcium 9.2 mg/dL (8.4-10.2)
[2017-12-27 14:53] LABS: Troponin I <0.012 ng/mL (0.000-0.034)
[2017-12-27 14:56] LABS: Creatine Kinase MB 3.8 ng/mL (0.0-2.4)
[2017-12-27] MEDS ORDERED: HEPARIN SODIUM,PORCINE 5,000 UNIT/ML 1 ML VIAL IV ONE (15:03)
[2017-12-27] MEDS ORDERED: HEPARIN SOD,PORK IN 0.45% NACL 25,000 UNIT in 0.45% NACL 1 500ML.BAG IV SCH (15:15)
[2017-12-27] MEDS ORDERED: NITROGLYCERIN SL TABS 0.4 MG TAB SUBLINGUAL PRN (15:45)
[2017-12-27] MEDS: NITROGLYCERIN OINT 1 INCH/GM PACKET TOPICAL SCH (19:04)
[2017-12-27 21:04] LABS: Creatine Kinase 104 U/L (55-170)
[2017-12-27 21:18] LABS: Troponin I <0.012 ng/mL (0.000-0.034)
[2017-12-27 21:22] LABS: Creatine Kinase MB 4.8 ng/mL (0.0-2.4)
--- NOTE | 2017-12-27 21:41 | HP ---
HISTORY AND PHYSICAL CHIEF COMPLAINT: A 67-year-old white male who presents with diabetes, high blood pressure, high cholesterol, severe diaphoresis and short of breath. He did not pass out. EMS came to the scene. They gave him an aspirin. He was placed in the hospital. He has had mild chest pressure. Denies shortness of breath. No fever or chills. He was dizzy and lightheaded. He was no longer dizzy or lightheaded in the ER. Denies any nausea, vomiting, diarrhea. He was admitted to rule out TN. HOME MEDICINES: Celexa, BuSpar, Singular, [place], Prinivil, mag oxide, multivitamin, Zantac, Glucophage, Coreg, Flomax. ALLERGIES: PERSANTINE, IODINE DYE, DIAMORPHINE. REVIEW OF SYSTEM: Fourteen point review of systems negative except for mentioned in HPI. PAST MEDICAL HISTORY: Diabetes mellitus, GERD, dyslipidemia, hypertension, sleep apnea, CPAP, syncope, sleep apnea, hiatal hernia, varicose veins, constipation, hemorrhoids, insulin-dependent diabetes mellitus. SURGERIES: Back surgery, cholecystectomy, heart catheterization, hernia repair, arthroscopy of the right knee, inguinal hernia repair, cataract repair. FAMILY HISTORY: Mother with pacemaker. Father dementia. PHYSICAL EXAM: Well-developed, well-nourished, white male, nontoxic, well hydrated. No acute distress. HEENT: Nares are painful and swollen. OPHTHALMOLOGIC: Pupils equal, round, react to light and accommodation. LUNGS: No audible wheezing. CARDIAC: Regular rate and rhythm. ABDOMEN: Soft. SKIN: No rash, excoriation or bruising. NEUROLOGIC: Alert and oriented x3. MUSCULOSKELETAL: Full range of motion. Temp 98.3, pulse 60, respiratory rate 12 to 16, blood pressure 120s over 70s, O2 95% on room air. Chest x-ray is negative. ASSESSMENT: Atypical chest pain, possible unstable angina pectoris, insulin-dependent diabetes mellitus, hypothyroidism, hypertension. Continue current treatment. Rule out TN. Cardiology consult. MMODL / IJN: [id number] /
[2017-12-27 22:00] VITALS: BMI 28.3
[2017-12-27] MEDS ORDERED: HYDROcodone/APAP 7.5-325MG 1 EACH TAB PO PRN (22:13)
[2017-12-27] MEDS: FAMOTIDINE 20 MG TAB PO SCH (22:42)
[2017-12-27] MEDS: CITALOPRAM HYDROBROMIDE 20 MG TAB PO SCH (22:42)
[2017-12-27] MEDS: MONTELUKAST 10 MG TAB PO SCH (22:42)
[2017-12-27] MEDS: ATORVASTATIN 20 MG TAB PO SCH (22:42)
[2017-12-27] MEDS: CARVEDILOL 6.25 MG TAB PO SCH (22:42)
[2017-12-27] MEDS: TAMSULOSIN 0.4 MG CAP.ER.24H PO SCH (22:42)
[2017-12-27] MEDS: IBUPROFEN 800 MG TAB PO SCH (22:42)
[2017-12-27] MEDS: busPIRone HCl 10 MG TAB PO SCH (22:42)
[2017-12-27] MEDS: LISINOPRIL 20 MG TAB PO SCH (22:42)
[2017-12-27] MEDS: MAGNESIUM OXIDE 400 MG TAB PO SCH (22:42)
[2017-12-28] MEDS: NITROGLYCERIN OINT 1 INCH/GM PACKET TOPICAL SCH ×2 (00:03→05:47)
[2017-12-28 00:36] LABS: Cholesterol 155 mg/dL (<200); HDL Cholesterol 46 mg/dL (40-60); LDL Cholesterol,Calculated 73 mg/dL (0-99); Triglycerides 182 mg/dL (<150)
[2017-12-28 02:42] LABS: Creatine Kinase 164 U/L (55-170)
[2017-12-28 02:56] LABS: Troponin I <0.012 ng/mL (0.000-0.034)
[2017-12-28 02:58] LABS: Creatine Kinase MB 6.4 ng/mL (0.0-2.4)
[2017-12-28 06:51] LABS: Glucose,Whole Blood 106 mg/dL (75-99)
[2017-12-28] MEDS ORDERED: ASPIRIN 325 MG TAB PO SCH (09:00)
[2017-12-28] MEDS: IBUPROFEN 800 MG TAB PO SCH ×2 (09:21→21:11)
[2017-12-28] MEDS: MONTELUKAST 10 MG TAB PO SCH (09:23)
[2017-12-28] MEDS: FAMOTIDINE 20 MG TAB PO SCH (09:23)
[2017-12-28] MEDS: busPIRone HCl 10 MG TAB PO SCH ×2 (09:23→21:11)
[2017-12-28] MEDS: CITALOPRAM HYDROBROMIDE 20 MG TAB PO SCH (09:23)
[2017-12-28] MEDS: ATORVASTATIN 20 MG TAB PO SCH (09:24)
[2017-12-28] MEDS: LISINOPRIL 20 MG TAB PO SCH (09:24)
[2017-12-28] MEDS: MAGNESIUM OXIDE 400 MG TAB PO SCH (09:24)
[2017-12-28] MEDS: TAMSULOSIN 0.4 MG CAP.ER.24H PO SCH (09:25)
[2017-12-28] MEDS: ASPIRIN 81 MG PO SCH (09:26)
--- NOTE | 2017-12-28 11:11 | P.CRDCN ---
History of Present Illness History of present illness: Mr. Taylor is a pleasant 67-year-old male past medical history significant for dyslipidemia, diabetes mellitus, hypertension, anxiety and obstructive sleep apnea. He denies coronary artery disease. He follows with Dr. Jaramillo in the office. We have been asked to see him in consultation for dizziness, chest pain and shortness of breath. He has had multiple admission for similar complaints in the last few months. He had a normal dobutamine stress test 09/2017 as well as normal Lexiscan stress test 01/2017. Most recent echocardiogram 09/2017 revealed normal LV size and function with no valvular heart disease. Last admission he had what was thought to be a vasovagal episode after swallowing pills. He was sent home with an event monitor. He states he hasn't really been wearing it since discharge as recommended due to technical difficulties. Yesterday he walked into the kitchen to get something to eat and started feeling poorly. He walked to the bedroom to sit down and started feeling very light headed and short of breath. He sat there for a few minutes and asked his to bring him gatorade. After drinking he started to feel better. He also states he had a loose bowel movement on Tuesday. He says he has been drinking water and eating without difficulty. He denies having actual chest pain. He also denies palpitations, nausea, vomiting or diaphoresis. EKG reveals sinus mechanism with no acute ST or T-wave abnormalities. Telemetry tracings reveal sinus bradycardia heart rate down into the 40s. Chest xray negative for acute cardiopulmonary process. Laboratory data reviewed, hemoglobin 13.7, platelets 164, sodium 136, potassium 4.0, magnesium 1.7, creatinine 1.2, cardiac enzymes negative 3, LDL 73. Current cardiac medications include carvedilol 6.25 mg twice a day, atorvastatin 20 mg daily, lisinopril 20 mg daily. He also takes Glucophage, BuSpar, Singulair, Zantac, Flomax, [place], Motrin and Celexa. Review of Systems At the time of my exam: CONSTITUTIONAL: Denies fever. Denies chills. EYES: Denies blurred vision. Denies vision changes. Denies eye pain. EARS, NOSE, MOUTH & THROAT: Denies headache. Denies sore throat. Denies ear pain. CARDIOVASCULAR: Denies chest pain. Denies shortness of breath. Denies orthopnea. Denies PND. Denies palpitations. RESPIRATORY: Denies cough. GASTROINTESTINAL: Denies abdominal pain. Denies diarrhea. Denies constipation. Denies nausea. Denies vomiting. MUSCULOSKELETAL: Denies myalgias. INTEGUMENTARY: Denies pruitis. Denies rash. NEUROLOGIC: Denies numbness. Denies tingling. Denies weakness. PSYCHIATRIC: Denies anxiety. Denies depression. ENDOCRINE: Denies fatigue. Denies weight change. Denies polydipsia. Denies polyurina. GENITOURINARY: Denies burning, hematuria or urgency with micturation. HEMATOLOGIC: Denies history of anemia. Denies bleeding. Past Medical History Past Medical History: Diabetes Mellitus, GERD/Reflux, Hyperlipidemia, Hypertension, Sleep Apnea/CPAP/BIPAP, Syncope Additional Past Medical History / Comment(s): Other HX: IDDM, ERIKA cannot tolerate CPAP, varicose veins, hiatal hernia, constipation occas bleeding with stools, hemorrhoids, hyperkalemia History of Any Multi-Drug Resistant Organisms: None Reported Past Surgical History: Back Surgery, Cholecystectomy, Heart Catheterization, Hernia Repair Additional Past Surgical History / Comment(s): arthroscopy right knee. bilateral cataracts,jeancarlos inguinal hernia repair, alban funloplasty Past Anesthesia/Blood Transfusion Reactions: No Reported Reaction Past Psychological History: Anxiety Additional Psychological History / Comment(s): Pt resides with his spouse. He is independent. Smoking Status: Never smoker Past Alcohol Use History: Rare Past Drug Use History: None Reported - Past Family History Mother Additional Family Medical History / Comment(s): HAD PACEMAKER, age 86 Father Family Medical History: Dementia Medications and Allergies Home Medications Medication Instructions Recorded Confirmed Type Hydrocodone/Acetaminophen 1 tab PO TID PRN 05/01/14 12/27/17 History [Hydrocodon-Acetaminoph 7.5-325] Montelukast [Singulair] 10 mg PO DAILY 05/01/14 12/27/17 History busPIRone HCl [Buspar] 10 mg PO BID 05/01/14 12/27/17 History Citalopram Hydrobromide [CeleXA] 20 mg PO DAILY 09/13/17 12/27/17 History Ibuprofen [Motrin] 800 mg PO BID 09/13/17 12/27/17 History Lisinopril [Prinivil] 20 mg PO DAILY 09/13/17 12/27/17 History Magnesium Oxide [Mag-Ox] 400 mg PO DAILY 09/13/17 12/27/17 History Multivitamins, Thera [Multivitamin 1 tab PO DAILY 09/13/17 12/27/17 History (formulary)] Ranitidine HCl [Zantac] 150 mg PO DAILY 09/13/17 12/27/17 History metFORMIN HCL [Glucophage] 500 mg PO DAILY 09/13/17 12/27/17 History Carvedilol [Coreg] 6.25 mg PO BID 12/19/17 12/27/17 History Tamsulosin HCl [Flomax] 0.4 mg PO DAILY 12/19/17 12/27/17 History Atorvastatin [Lipitor] 20 mg PO DAILY #30 tab 12/20/17 12/27/17 Rx Allergies Allergy/AdvReac Type Severity Reaction Status Date / Time dipyridamole AdvReac Nausea & Verified 12/27/17 21:50 [From Persantine] Vomiting Iodinated Contrast- Oral and AdvReac Nausea & Verified 12/27/17 21:50 IV Dye Vomiting [Iodinated Contrast Media - IV Dye] morphine AdvReac Nausea & Verified 12/27/17 21:50 Vomiting Physical Exam Vitals: Vital Signs Temp Pulse Pulse Resp BP BP BP 12/28/17 07:30 97.6 F 47 L 18 135/76 12/28/17 04:00 16 12/28/17 03:53 98.1 F 53 L 16 141/68 12/28/17 00:00 16 12/27/17 23:06 97.6 F 51 L 16 138/73 12/27/17 22:31 16 12/27/17 21:26 97.5 F L 50 L 16 147/80 12/27/17 20:42 97.0 F L 87 18 134/78 12/27/17 19:03 53 L 16 105/60 12/27/17 17:00 59 L 16 116/62 12/27/17 15:46 51 L 16 134/75 12/27/17 15:06 58 L 16 146/86 12/27/17 13:52 98.3 F 60 16 129/76 Pulse Ox 12/28/17 07:30 99 12/28/17 04:00 12/28/17 03:53 98 12/28/17 00:00 12/27/17 23:06 99 12/27/17 22:31 12/27/17 21:26 99 12/27/17 20:42 99 12/27/17 19:03 96 12/27/17 17:00 95 12/27/17 15:46 96 12/27/17 15:06 95 12/27/17 13:52 95 Intake and Output 12/27/17 12/28/17 12/28/17 22:59 06:59 14:59 Intake Total 229.115 Balance 229.115 Intake: Intake, IV Titration 229.115 Amount Heparin Sod,Pork in 0.45% 229.115 NaCl 25,000 unit In 0.45 % NaCl 1 500ml.bag @ 11.2 UNITS/KG/HR 20.01 mls/hr IV .Q24H [facility] Rx#: [id number] Other: # Voids 1 1 Weight 89.4 kg Blood pressure 135/76 heart rate 47 afebrile maintaining oxygen saturation on room air GENERAL: This is a 67-year-old male in no apparent distress at the time of my examination. HEENT: Head is atraumatic, normocephalic. Pupils are equal, round. Sclerae anicteric. Conjunctivae are clear. Mucous membranes of the mouth are moist. Neck is supple. There is no jugular venous distention. No carotid bruit is heard. LUNGS: Clear to auscultation no wheezes, rales or rhonchi. No chest wall tenderness is noted on palpation or with deep breathing. HEART: Regular rate and rhythm without murmurs, rubs or gallops. S1 and S2 heard. ABDOMEN: Soft, nontender. Bowel sounds are heard. No organomegaly noted. EXTREMITIES: No evidence of peripheral edema and no calf tenderness noted. VASCULAR: Radial and dorsalis pedis pulses palpated, no evidence of clubbing. NEUROLOGIC: Patient is awake, alert and oriented x3. Results 12/27/17 14:00 12/27/17 14:00 Cardiac Enzymes 12/27/17 12/27/17 12/27/17 Range/Units 14:00 14:00 20:16 AST 22 (17-59) U/L CK-MB (CK-2) 3.8 H* 4.8 H* (0.0-2.4) ng/mL Troponin I <0.012 <0.012 (0.000-0.034) ng/mL 12/28/17 Range/Units 01:53 AST (17-59) U/L CK-MB (CK-2) 6.4 H* (0.0-2.4) ng/mL Troponin I <0.012 (0.000-0.034) ng/mL Coagulation 12/27/17 12/28/17 Range/Units 14:00 01:53 PT 10.4 (9.0-12.0) sec APTT 22.8 42.4 H (22.0-30.0) sec Lipids 12/27/17 Range/Units 13:00 Triglycerides 182 H (<150) mg/dL Cholesterol 155 (<200) mg/dL HDL Cholesterol 46 (40-60) mg/dL CBC 12/27/17 Range/Units 14:00 WBC 8.4 (3.8-10.6) k/uL RBC 4.29 L (4.30-5.90) m/uL Hgb 13.7 (13.0-17.5) gm/dL Hct 40.2 (39.0-53.0) % Plt Count 164 (150-450) k/uL Comprehensive Metabolic Panel 12/27/17 Range/Units 14:00 Sodium 136 L (137-145) mmol/L Potassium 4.0 (3.5-5.1) mmol/L Chloride 102 (98-107) mmol/L Carbon Dioxide 24 (22-30) mmol/L BUN 13 (9-20) mg/dL Creatinine 1.20 (0.66-1.25) mg/dL Glucose 184 H (74-99) mg/dL Calcium 9.2 (8.4-10.2) mg/dL AST 22 (17-59) U/L ALT 28 (21-72) U/L Alkaline Phosphatase 65 (38-126) U/L Total Protein 6.4 (6.3-8.2) g/dL Albumin 4.1 (3.5-5.0) g/dL Current Medications Generic Name Dose Route Start Last Admin Trade Name Freq PRN Reason Stop Dose Admin Hydrocodone Bitart/Acetaminophen 1 each 12/27/17 22:13 12/28/17 00:05 [place] 7.5-325 PO 1 each TID PRN Administration Moderate Pain Aspirin 81 mg 12/28/17 09:00 Aspirin PO DAILY [facility] Atorvastatin Calcium 20 mg 12/27/17 22:15 12/27/17 22:42 Lipitor PO 20 mg DAILY [facility] Administration Buspirone HCl 10 mg 12/27/17 22:15 12/27/17 22:42 Buspar PO 10 mg BID [facility] Administration Carvedilol 6.25 mg 12/27/17 22:15 12/27/17 22:42 Coreg PO 6.25 mg BID-W/MEALS [facility] Administration Citalopram Hydrobromide 20 mg 12/27/17 22:15 12/27/17 22:42 Celexa PO 20 mg DAILY [facility] Administration Famotidine 20 mg 12/27/17 22:15 12/27/17 22:42 Pepcid PO 20 mg DAILY [facility] Administration Ibuprofen 800 mg 12/27/17 22:15 12/27/17 22:42 Motrin PO 800 mg BID [facility] Administration Lisinopril 20 mg 12/27/17 22:15 12/27/17 22:42 Zestril PO 20 mg DAILY [facility] Administration Magnesium Oxide 400 mg 12/27/17 22:15 12/27/17 22:42 Mag-Ox PO 400 mg DAILY [facility] Administration Montelukast Sodium 10 mg 12/27/17 22:15 12/27/17 22:42 Singulair PO 10 mg DAILY [facility] Administration Multivitamins 1 each 12/28/17 12:00 Theragran PO DAILY@1200 [facility] Nitroglycerin 0.4 mg 12/27/17 15:45 Nitrostat SUBLINGUAL Q5M PRN Chest Pain Tamsulosin HCl 0.4 mg 12/27/17 22:15 12/27/17 22:42 Flomax PO 0.4 mg DAILY [facility] Administration Intake and Output 12/27/17 12/28/17 12/28/17 22:59 06:59 14:59 Intake Total 229.115 Balance 229.115 Intake: Intake, IV Titration 229.115 Amount Heparin Sod,Pork in 0.45% 229.115 NaCl 25,000 unit In 0.45 % NaCl 1 500ml.bag @ 11.2 UNITS/KG/HR 20.01 mls/hr IV .Q24H [facility] Rx#: [id number] Other: # Voids 1 1 Weight 89.4 kg 12/27/17 14:00 12/27/17 14:00 Assessment and Plan Assessment: ASSESSMENT Dizziness with shortness of breath and generalized with fatigue. Sinus bradycardia noted on telemetry. Hypertension Dyslipidemia Diabetes mellitus Sleep apnea PLAN Discontinue coreg for bradycardia. Continue to monitor on telemetry for another 24 hours. Thank you kindly for this consultation. Nurse Practitioner note has been reviewed, I agree with a documented findings and plan of care. Patient was seen and examined.
[2017-12-28 12:15] LABS: Glucose,Whole Blood 163 mg/dL (75-99)
[2017-12-28] MEDS: MULTIVITAMINS, THERA 1 EACH TAB PO SCH (12:47)
[2017-12-28 17:34] LABS: Glucose,Whole Blood 155 mg/dL (75-99)
[2017-12-28] MEDS: INSULIN ASPART 100 UNIT/ML 1 ML 10 ML VIAL SQ SCH ×2 (17:39→21:10)
[2017-12-28 19:37] VITALS: RESP 16
[2017-12-28 20:04] LABS: Glucose,Whole Blood 170 mg/dL (75-99)
[2017-12-28 20:15] LABS: Hemoglobin A1C 6.6 % (4.0-6.0)
[2017-12-28] MEDS ORDERED: HYDROcodone/APAP 7.5-325MG 1 EACH TAB ONE (23:30)
--- NOTE | 2017-12-28 23:41 | PN ---
PROGRESS NOTE SUBJECTIVE: A 67-year-old white male who has been cleared by Cardiology for discharge. He is complaining of dizziness and ear infections. We started him on antibiotics and will get Neurology to see him for dizziness. CARDIOVASCULAR: S1, S2. LUNGS: Transmitted upper airway sounds. GI: Soft. HEMATOLOGIC: Negative Homans'. PSYCH: Fair mood and affect. ASSESSMENT: Dizziness secondary to dehydration, possibly due to some bradycardia and Coreg. Coreg will be discontinued. We will watch his heart rate overnight, give him antibiotics for his ear, get Neurology consulted, possible discharge home in the morning if cleared by Cardiology and Neurology. MMODL / IJN: [id number] /
[2017-12-29 06:47] LABS: Glucose,Whole Blood 97 mg/dL (75-99)
[2017-12-29] MEDS: INSULIN ASPART 100 UNIT/ML 1 ML 10 ML VIAL SQ SCH ×2 (08:28→13:36)
[2017-12-29] MEDS: IBUPROFEN 800 MG TAB PO SCH (08:34)
[2017-12-29] MEDS: TAMSULOSIN 0.4 MG CAP.ER.24H PO SCH (08:34)
[2017-12-29] MEDS: FAMOTIDINE 20 MG TAB PO SCH (08:34)
[2017-12-29] MEDS: ASPIRIN 81 MG PO SCH (08:34)
[2017-12-29] MEDS: ATORVASTATIN 20 MG TAB PO SCH (08:34)
[2017-12-29] MEDS: CITALOPRAM HYDROBROMIDE 20 MG TAB PO SCH (08:34)
[2017-12-29] MEDS: MONTELUKAST 10 MG TAB PO SCH (08:34)
[2017-12-29] MEDS: busPIRone HCl 10 MG TAB PO SCH (08:34)
[2017-12-29] MEDS: MAGNESIUM OXIDE 400 MG TAB PO SCH (08:36)
[2017-12-29] MEDS: CARVEDILOL 6.25 MG TAB PO SCH (08:40)
[2017-12-29] MEDS ORDERED: LISINOPRIL 20 MG TAB PO SCH (09:00)
--- NOTE | 2017-12-29 09:03 | CONS ---
CONSULTATION DATE OF CONSULTATION: 12/28/2017 CHIEF COMPLAINT: Near syncope. HISTORY OF PRESENT ILLNESS: Mr. Taylor is a pleasant 67-year-old male, who is being evaluated today on 12/28/2017 by the Neurology Service per the request of Dr. Hawk Gaona for a near- syncopal episode. The patient was brought into [facility] Emergency Room after he had an episode where he became diaphoretic and lightheaded. He did not have any loss of consciousness. He was complaining of some chest pain. In the emergency room, his dizziness had resolved. The patient was found to be bradycardic and has been running in the 50s since his admission. Cardiology has been consulted. His cardiac enzymes were normal except his CK-MB is elevated at 6.4. His CBC was normal. His comprehensive metabolic profile was normal except for hyperglycemia at 184. PAST MEDICAL HISTORY: Diabetes, gastroesophageal reflux disease, dyslipidemia, hypertension, obstructive sleep apnea, hiatal hernia, history of spine surgery, cholecystectomy, hernia repair, orthopedic surgeries, cataract surgery. FAMILY HISTORY: Positive for dementia and heart disease. SOCIAL HISTORY: He denies any tobacco, alcohol or drug use. HOME MEDICATIONS: Reviewed in the chart. ALLERGIES: PERSANTINE, MORPHINE, IV DYE. REVIEW OF SYSTEMS: As mentioned above and otherwise negative. PHYSICAL EXAM: Vital signs show a temperature of 97.7, pulse 53, respiration 18, blood pressure 138/77. GENERAL APPEARANCE: The patient is a well-developed, elderly male, who appears to be in no acute distress. HEENT: Normocephalic, atraumatic, no facial asymmetry is seen. NECK: Supple with no masses felt. CARDIOVASCULAR: Bradycardic rate with a normal rhythm. ABDOMEN: Nontender, nondistended. Extremities showed no edema or clubbing. NEUROLOGICAL EXAM: The patient is awake and oriented x3. Speech and language are normal. Strength is full in all 4 extremities. Sensory exam was normal to light touch in all 4 extremities. No tremors or seizure-like activity is seen. No facial asymmetry is noticed on cranial nerve testing. IMPRESSION: 1. Dizziness. 2. Near syncope. 3. Bradycardia. 4. Diabetes. RECOMMENDATION: The patient does appear to have suffered a vasovagal episode with no loss of consciousness. He has been bradycardic since his admission. I do recommend a Cardiology workup. Cardiology did evaluate the patient and a Holter monitor is being recommended. The patient's neurological examination is normal and no further neurological workup is needed. From a neurology standpoint, the patient is cleared for discharge. Thank you, Dr. Gaona, for allowing me to participate in the care of your patient. If you have any questions, please feel free to contact me. JULIAN / IJN: [id number] /
[2017-12-29] MEDS ORDERED: amLODIPine 5 MG TAB PO SCH (09:30)
[2017-12-29 11:29] VITALS: BP 169/85; PULSE 62; TEMP 97.7
[2017-12-29] MEDS ORDERED: AMOXIC-POT CLAV 875-125MG 1 EACH TAB PO SCH (12:00)
--- NOTE | 2017-12-29 12:03 | P.PN ---
Subjective Mr. Taylor is seen and examined sitting up eating breakfast. Coreg was stopped yesterday. Heart rates have continued in the 52-62 rnge with blood pressure 165/ 91. He states he still feels mildly dizzy at rest with discomfort in his chest at times. The chest discomfort is mid-sternal and he notices it when he swallows his food and the pain is reproducible on palpitation. He denies shortness of breath, nausea, vomiting, diaphoresis or palpitations. He has been started on antibiotics for possible inner ear infection per primary and neurology has been consulted. Lengthy discussion was had regarding his event monitor at home and he seemed confused about how to charge the device and has been non-compliant. Objective - Vital Signs Vital signs: Vital Signs Temp 97.7 F 12/29/17 11:28 Pulse 62 12/29/17 11:28 Resp 16 12/29/17 11:28 BP 169/85 12/29/17 11:28 Pulse Ox 97 12/29/17 11:28 Intake & Output 12/28/17 12/29/17 12/29/17 18:59 06:59 18:59 Intake Total 1120 Balance 1120 Weight 89.4 kg Intake: Oral 920 Other 200 Other: # Voids 1 - Exam GENERAL: Well-appearing, well-nourished and in no acute distress. NECK: Supple without JVD or thyromegaly. LUNGS: Breath sounds clear to auscultation bilaterally. Respiration equal and unlabored. No wheezes, rales or rhonchi. HEART: Regular rate and rhythm without murmurs, rubs or gallops. S1 and S2 heard. EXTREMITIES: Normal range of motion, no edema. No clubbing or cyanosis. Peripheral pulses intact. - Labs CBC & Chem 7: 12/27/17 14:00 12/27/17 14:00 Labs: Abnormal Lab Results - Last 24 Hours (Table) 12/28/17 12/28/17 12/28/17 Range/Units 08:40 12:09 17:31 POC Glucose (mg/dL) 163 H 155 H (75-99) mg/dL Hemoglobin A1c 6.6 H (4.0-6.0) % 12/28/17 Range/Units 20:02 POC Glucose (mg/dL) 170 H (75-99) mg/dL Hemoglobin A1c (4.0-6.0) % Assessment and Plan Assessment: ASSESSMENT Dizziness with shortness of breath and generalized with fatigue. Sinus bradycardia noted on telemetry. Hypertension Dyslipidemia Diabetes mellitus Sleep apnea PLAN Increase lisnopril to 20 mg BID and add small dose of amlodipine to daily regimen for better blood pressure control. Re-educated him extensively regarding his event monitor with instructions for use and again provided the phone number to call with concerns once he gets home. Advised to check his blood pressure at home and keep record to take with him to follow up visit with Dr. Jaramillo. Also advised him to follow up with pulmonary regarding his sleep apnea. He is non-compliant with c-pap due to comfort. Nurse Practitioner note has been reviewed, I agree with a documented findings and plan of care. Patient was seen and examined.
[2017-12-29] MEDS: MULTIVITAMINS, THERA 1 EACH TAB PO SCH (12:45)
[2017-12-29 12:57] LABS: Glucose,Whole Blood 108 mg/dL (75-99)
== END 2017-12-29 15:22 | disposition home or self-care (01) ==
LOC: EC 13:49 → 3OBS 15:45
PROVIDERS: ADMIT Family Medicine; ATTEND Family Medicine
DX: R07.89 Other chest pain (principal); R61 Generalized hyperhidrosis; E86.0 Dehydration; R06.02 Shortness of breath; R00.1 Bradycardia, unspecified; T44.7X5A Adverse effect of beta-adrenoreceptor antagonists, initial encounter; R42 Dizziness and giddiness; E11.65 Type 2 diabetes mellitus with hyperglycemia; I10 Essential (primary) hypertension; G47.33 Obstructive sleep apnea (adult) (pediatric); Z99.89 Dependence on other enabling machines and devices; Z91.19 Patient's noncompliance with other medical treatment and regimen; K21.9 Gastro-esophageal reflux disease without esophagitis; E78.5 Hyperlipidemia, unspecified; I83.90 Asymptomatic varicose veins of unspecified lower extremity; R55 Syncope and collapse; K59.00 Constipation, unspecified; E03.9 Hypothyroidism, unspecified; R53.83 Other fatigue; F41.9 Anxiety disorder, unspecified; R74.8 Abnormal levels of other serum enzymes; K64.9 Unspecified hemorrhoids; K44.9 Diaphragmatic hernia without obstruction or gangrene; Z79.899 Other long term (current) drug therapy; Z79.1 Long term (current) use of non-steroidal anti-inflammatories (NSAID); Z79.84 Long term (current) use of oral hypoglycemic drugs; Z88.5 Allergy status to narcotic agent; Z88.8 Allergy status to other drugs, medicaments and biological substances; Z91.041 Radiographic dye allergy status; Z98.42 Cataract extraction status, left eye; Z98.41 Cataract extraction status, right eye; Z90.49 Acquired absence of other specified parts of digestive tract; Z81.8 Family history of other mental and behavioral disorders; Z82.49 Family history of ischemic heart disease and other diseases of the circulatory system
CPT/HCPCS: 99291 ×2; 96365 ×2; 96366 ×7; 96376 ×2; 36415; 93005; 85379; 80061; 80053; 82550 ×2; 82553 ×2; 83735; 84484 ×2; 85025; 85610; 85730 ×2; 83036; 71046; G0378 ×3; J1644 ×2

== ENCOUNTER 2018-01-10 13:47 | Observation (INO) | payer MEDICARE, OTHER ==
[2018-01-10] MEDS ORDERED: SODIUM CHLORIDE 0.9% 500 ML IV STA (13:52)
--- NOTE | 2018-01-10 13:55 | ED ---
Chest Pain HPI - General Stated Complaint: chest pain Time Seen by Provider: 01/10/18 13:47 Source: patient, EMS, RN notes reviewed - History of Present Illness Initial Comments: This is a 67-year-old male who was brought in by EMS with complaints of chest pain. Apparently his vamper's office and try to get a hold yesterday as he has a monitor on which did show dysrhythmia patient states he had the onset of chest pain this morning was given aspirin and nitroglycerin per EMS chest pain was 7/10 heavy in nature midsternal. He had an episode of hypotension after the first nitroglycerin. He states the pain did not get much better. He denies any palpitations currently fevers chills sweats or other symptoms at this time. MD Complaint: chest pain - Related Data Home Medications Medication Instructions Recorded Confirmed Hydrocodone/Acetaminophen 1 tab PO TID PRN 05/01/14 12/27/17 [Hydrocodone-Acetamin 7.5-325] Montelukast [Singulair] 10 mg PO DAILY 05/01/14 12/27/17 busPIRone HCl [Buspar] 10 mg PO BID 05/01/14 12/27/17 Citalopram Hydrobromide [CeleXA] 20 mg PO DAILY 09/13/17 12/27/17 Ibuprofen [Motrin] 800 mg PO BID 09/13/17 12/27/17 Lisinopril [Prinivil] 20 mg PO DAILY 09/13/17 12/27/17 Magnesium Oxide [Mag-Ox] 400 mg PO DAILY 09/13/17 12/27/17 Multivitamins, Thera [Multivitamin 1 tab PO DAILY 09/13/17 12/27/17 (formulary)] Ranitidine HCl [Zantac] 150 mg PO DAILY 09/13/17 12/27/17 metFORMIN HCL [Glucophage] 500 mg PO DAILY 09/13/17 12/27/17 Tamsulosin HCl [Flomax] 0.4 mg PO DAILY 12/19/17 12/27/17 Previous Rx's Medication Instructions Recorded Atorvastatin [Lipitor] 20 mg PO DAILY #30 tab 12/20/17 Amoxic-Pot Clav 875-125Mg 1 each PO Q12HR tab 12/29/17 [Augmentin 875-125] Aspirin 81 mg PO DAILY chew 12/29/17 Nitroglycerin Sl Tabs [Nitrostat] 0.4 mg SUBLINGUAL Q5M PRN tab 12/29/17 amLODIPine [Norvasc] 5 mg PO DAILY tab 12/29/17 Allergies Allergy/AdvReac Type Severity Reaction Status Date / Time dipyridamole AdvReac Nausea & Verified 01/10/18 14:11 [From Persantine] Vomiting Iodinated Contrast- Oral and AdvReac Nausea & Verified 01/10/18 14:11 IV Dye Vomiting [Iodinated Contrast Media - IV Dye] morphine AdvReac Nausea & Verified 01/10/18 14:11 Vomiting Review of Systems ROS Statement: Those systems with pertinent positive or pertinent negative responses have been documented in the HPI. ROS Other: All systems not noted in ROS Statement are negative. Past Medical History Past Medical History: Diabetes Mellitus, GERD/Reflux, Hyperlipidemia, Hypertension, Sleep Apnea/CPAP/BIPAP, Syncope Additional Past Medical History / Comment(s): Other HX: IDDM, ERIKA cannot tolerate CPAP, varicose veins, hiatal hernia, constipation occas bleeding with stools, hemorrhoids, hyperkalemia History of Any Multi-Drug Resistant Organisms: MRSA Date of last positivie culture/infection: November 2017 MDRO Source:: Abdomen at [facility] per Dr. Verdin Past Surgical History: Back Surgery, Cholecystectomy, Heart Catheterization, Hernia Repair Additional Past Surgical History / Comment(s): arthroscopy right knee. bilateral cataracts,jeancarlos inguinal hernia repair, alban funloplasty Past Anesthesia/Blood Transfusion Reactions: No Reported Reaction Past Psychological History: Anxiety Additional Psychological History / Comment(s): Pt resides with his spouse. He is independent. Smoking Status: Never smoker Past Alcohol Use History: Rare Past Drug Use History: None Reported - Past Family History Mother Additional Family Medical History / Comment(s): HAD PACEMAKER, age 86 Father Family Medical History: Dementia General Exam - General Exam Comments Initial Comments: This is a well-developed well-nourished awake alert oriented 3 male General appearance: alert, in no apparent distress Head exam: Present: atraumatic, normocephalic, normal inspection Eye exam: Present: normal appearance, PERRL, EOMI. Absent: scleral icterus, conjunctival injection, periorbital swelling ENT exam: Present: normal exam, mucous membranes moist Neck exam: Present: normal inspection. Absent: tenderness, meningismus, lymphadenopathy Respiratory exam: Present: normal lung sounds bilaterally, chest wall tenderness. Absent: respiratory distress, wheezes, rales, rhonchi, stridor Cardiovascular Exam: Present: regular rate, normal rhythm, normal heart sounds. Absent: systolic murmur, diastolic murmur, rubs, gallop, clicks GI/Abdominal exam: Present: soft, normal bowel sounds. Absent: distended, tenderness, guarding, rebound, rigid Extremities exam: Present: normal inspection, full ROM, normal capillary refill. Absent: tenderness, pedal edema, joint swelling, calf tenderness Back exam: Present: normal inspection Neurological exam: Present: alert, oriented X3, CN II-XII intact Psychiatric exam: Present: normal affect, normal mood Skin exam: Present: warm, dry, intact, normal color. Absent: rash Course Vital Signs 01/10/18 01/10/18 13:50 15:01 Temperature 97.9 F Pulse Rate 57 L 56 L Respiratory 20 20 Rate Blood Pressure 133/72 127/61 O2 Sat by Pulse 99 95 Oximetry Chest Pain MDM - MDM The patient is improved he will be admitted with cardiology consultation. Case is discussed with Dr. Gaona Disposition Clinical Impression: Chest pain, Unstable angina pectoris Disposition: ADMITTED IP TO THIS [facility] Condition: Stable Referrals: Hawk Gaona MD [Primary Care Provider] - 1-2 days
[2018-01-10 14:10] LABS: Basophils % (A) 1 %; Eosinophils # (A) 0.4 k/uL (0-0.7); Eosinophils % (A) 5 %; HCT 38.6 % (39.0-53.0); HGB 13.3 gm/dL (13.0-17.5); Lymphocytes # (A) 2.6 k/uL (1.0-4.8); Lymphocytes % (A) 33 %; MCH 32.1 pg (25.0-35.0); MCHC 34.4 g/dL (31.0-37.0); MCV 93.4 fL (80.0-100.0); Monocytes # (A) 0.4 k/uL (0-1.0); Monocytes % (A) 5 %; Neutrophils # (A) 4.3 k/uL (1.3-7.7); Neutrophils % (A) 55 %; Platelet Count 189 k/uL (150-450); RBC 4.13 m/uL (4.30-5.90); RDW 12.5 % (11.5-15.5); WBC 7.8 k/uL (3.8-10.6)
[2018-01-10 14:24] LABS: ALT 29 U/L (21-72); AST 24 U/L (17-59); Albumin 3.9 g/dL (3.5-5.0); Alkaline Phosphatase 55 U/L (38-126); Anion Gap 10 mmol/L; Blood Urea Nitrogen 13 mg/dL (9-20); Calcium 9.2 mg/dL (8.4-10.2); Carbon Dioxide 26 mmol/L (22-30); Chloride 99 mmol/L (98-107); Glucose 174 mg/dL (74-99); Magnesium 1.7 mg/dL (1.6-2.3); Potassium 4.2 mmol/L (3.5-5.1); Sodium 135 mmol/L (137-145); Total Bilirubin 0.4 mg/dL (0.2-1.3); Total Protein 6.2 g/dL (6.3-8.2)
[2018-01-10 14:26] LABS: Partial Thromboplastin Time 24.6 sec (22.0-30.0); Prothrombin Time 10.3 sec (9.0-12.0)
[2018-01-10 14:38] LABS: Creatine Kinase 101 U/L (55-170)
[2018-01-10 14:49] LABS: Troponin I <0.012 ng/mL (0.000-0.034)
[2018-01-10 14:53] LABS: Creatine Kinase MB 3.9 ng/mL (0.0-2.4)
--- NOTE | 2018-01-10 14:55 | XR ---
EXAMINATION TYPE: XR chest 2V DATE OF EXAM: 01/10/2018 COMPARISON: 12/27/2017 INDICATION: Chest pain TECHNIQUE: Frontal and lateral views of the chest are obtained. FINDINGS: The heart size is normal. The pulmonary vasculature is normal. The lungs are clear. IMPRESSION: 1. No acute pulmonary process.
[2018-01-10] MEDS ORDERED: HYDROcodone/APAP 7.5-325MG 1 EACH TAB PO ONE (16:30)
[2018-01-10] MEDS ORDERED: NITROGLYCERIN SL TABS 0.4 MG TAB SUBLINGUAL PRN (16:31)
[2018-01-10] MEDS ORDERED: HEPARIN SODIUM,PORCINE 5,000 UNIT/ML 1 ML VIAL IV ONE (16:31)
[2018-01-10] MEDS ORDERED: HYDROcodone/APAP 7.5-325MG 1 EACH TAB PO PRN (16:34)
[2018-01-10] MEDS ORDERED: HEPARIN SOD,PORK IN 0.45% NACL 25,000 UNIT in 0.45% NACL 1 500ML.BAG IV SCH (16:45)
[2018-01-10] MEDS: NITROGLYCERIN OINT 1 INCH/GM PACKET TOPICAL SCH (19:24)
[2018-01-10] MEDS: SODIUM CHLORIDE 0.9% 1,000 ML IV SCH (19:24)
[2018-01-10 21:11] LABS: Creatine Kinase 126 U/L (55-170)
[2018-01-10 21:24] LABS: Troponin I <0.012 ng/mL (0.000-0.034)
[2018-01-10 21:27] LABS: Creatine Kinase MB 5.5 ng/mL (0.0-2.4)
[2018-01-10] MEDS: IBUPROFEN 800 MG TAB PO SCH (23:05)
[2018-01-10] MEDS: busPIRone HCl 10 MG TAB PO SCH (23:05)
[2018-01-10 23:32] LABS: Glucose,Whole Blood 196 mg/dL (75-99)
[2018-01-11 02:23] LABS: Creatine Kinase 145 U/L (55-170)
[2018-01-11 02:36] LABS: Troponin I <0.012 ng/mL (0.000-0.034)
[2018-01-11 02:38] LABS: Creatine Kinase MB 6.5 ng/mL (0.0-2.4)
[2018-01-11 02:41] LABS: Cholesterol 140 mg/dL (<200); HDL Cholesterol 47 mg/dL (40-60); LDL Cholesterol,Calculated 40 mg/dL (0-99); Triglycerides 265 mg/dL (<150)
[2018-01-11] MEDS: NITROGLYCERIN OINT 1 INCH/GM PACKET TOPICAL SCH ×5 (02:47→23:16)
[2018-01-11] MEDS ORDERED: metFORMIN 500 MG TAB PO SCH (07:30)
[2018-01-11 07:44] LABS: Glucose,Whole Blood 103 mg/dL (75-99)
[2018-01-11] MEDS: amLODIPine 5 MG TAB PO SCH (10:14)
[2018-01-11] MEDS: ASPIRIN 325 MG TAB PO SCH (10:14)
[2018-01-11] MEDS: busPIRone HCl 10 MG TAB PO SCH ×2 (10:14→22:17)
[2018-01-11] MEDS: FAMOTIDINE 20 MG TAB PO SCH (10:14)
[2018-01-11] MEDS: TAMSULOSIN 0.4 MG CAP.ER.24H PO SCH (10:15)
[2018-01-11] MEDS: IBUPROFEN 800 MG TAB PO SCH ×2 (10:15→21:56)
[2018-01-11] MEDS: ATORVASTATIN 20 MG TAB PO SCH (10:15)
[2018-01-11] MEDS: MONTELUKAST 10 MG TAB PO SCH (10:15)
[2018-01-11] MEDS: CITALOPRAM HYDROBROMIDE 20 MG TAB PO SCH (10:16)
[2018-01-11] MEDS: LISINOPRIL 20 MG TAB PO SCH (10:16)
[2018-01-11] MEDS: MAGNESIUM OXIDE 400 MG TAB PO SCH (10:16)
[2018-01-11] MEDS ORDERED: ALPRAZolam 0.25 MG TAB PO PRN (10:29)
[2018-01-11] MEDS ORDERED: SODIUM CHLORIDE 0.9% 1,000 ML in EMPTY BAG 1 BAG IV ONE (10:29)
[2018-01-11] MEDS ORDERED: ALPRAZolam 0.5 MG TAB PO PRN (10:29)
[2018-01-11] MEDS ORDERED: diphenhydrAMINE 50 MG/ML 1 ML VIAL IVP STA (10:30)
[2018-01-11] MEDS ORDERED: FAMOTIDINE 20 MG/2 ML VIAL IV STA (10:30)
[2018-01-11] MEDS ORDERED: methylPREDNISolone SOD SUCCI 125 MG/2 ML VIAL IV STA (10:30)
--- NOTE | 2018-01-11 10:55 | P.CRDCN ---
History of Present Illness History of present illness: Mr. Taylor is a pleasant 67-year-old male past medical history significant for diabetes mellitus, hypertension, dyslipidemia, gastroesophageal reflux disease, sleep apnea. He also recently has been suffering from frequent episodes of dizziness and currently is wearing an event monitor. He follows with Dr. Jaramillo in the office. The patient states he has been wearing his event monitor as ordered and yesterday he was notified by the state police at his home that he should come to the hospital because the event monitor company was trying to get hold of him. He states since his recent discharge at the end of December he has been feeling ongoing symptoms of dizziness, increased fatigue, palpitations and shortness of breath. Last admission medication changes were made to discontinue AV jen blocking agents secondary to bradycardia. Event monitoring company has been notified and his tracings have been reviewed. There is no evidence of any acute arrhythmia. He does continue to have sinus bradycardia with heart rate in the 50s. He is currently maintained on Norvasc 5 mg daily, lisinopril 20 mg daily, atorvastatin 20 mg daily and aspirin 81 mg daily. Since admission his heart rate continues to be in the low to mid-50 range with blood pressure 126/70. He denies symptoms of chest pain, nausea, vomiting or diaphoresis. He seems to be somewhat of a poor historian at times. EKG with T-wave inversions inferiorly with biphasic T waves laterally. Early repolarization noted. Chest x-ray is negative for an acute cardiopulmonary process. Laboratory data reviewed hemoglobin 13.3, platelets 189, sodium 135, potassium 4.2, magnesium 1.7, creatinine 0.9, troponins negative 3 with elevated CK-MB 3.9, 5.5 and 6.5. LDL 40, HDL 47, triglycerides 265 and total cholesterol 140. Most recent echocardiogram performed September 2017 reveals preserved left ventricular systolic function with ejection fraction 55-60%. He has undergone a dobutamine stress echocardiogram in September 2017 which was negative for stress-induced cardiac ischemia. Review of Systems At the time of my exam: CONSTITUTIONAL: Denies fever. Denies chills. EYES: Denies blurred vision. Denies vision changes. Denies eye pain. EARS, NOSE, MOUTH & THROAT: Denies headache. Denies sore throat. Denies ear pain. CARDIOVASCULAR: Denies chest pain. Denies shortness of breath. Denies orthopnea. Denies PND. Denies palpitations. RESPIRATORY: Denies cough. GASTROINTESTINAL: Denies abdominal pain. Denies diarrhea. Denies constipation. Denies nausea. Denies vomiting. MUSCULOSKELETAL: Denies myalgias. INTEGUMENTARY: Denies pruitis. Denies rash. NEUROLOGIC: Denies numbness. Denies tingling. Complains of generalized weakness and fatigue. PSYCHIATRIC: Denies anxiety. Denies depression. ENDOCRINE: Denies fatigue. Denies weight change. Denies polydipsia. Denies polyurina. GENITOURINARY: Denies burning, hematuria or urgency with micturation. HEMATOLOGIC: Denies history of anemia. Denies bleeding. Past Medical History Past Medical History: Chest Pain / Angina, Diabetes Mellitus, GERD/Reflux, Hyperlipidemia, Hypertension, Sleep Apnea/CPAP/BIPAP, Syncope Additional Past Medical History / Comment(s): IDDM, ERIKA cannot tolerate CPAP, varicose veins, hiatal hernia, constipation occas bleeding with stools, hemorrhoids, hyperkalemia History of Any Multi-Drug Resistant Organisms: MRSA Date of last positivie culture/infection: November 2017 MDRO Source:: Abdomen at [facility] per Dr. Verdin Past Surgical History: Back Surgery, Cholecystectomy, Heart Catheterization, Hernia Repair Additional Past Surgical History / Comment(s): arthroscopy right knee. bilateral cataracts,jeancarlos inguinal hernia repair, alban funloplasty Past Anesthesia/Blood Transfusion Reactions: No Reported Reaction, Motion Sickness Smoking Status: Never smoker - Past Family History Mother Additional Family Medical History / Comment(s): HAD PACEMAKER, age 86 Father Family Medical History: Dementia Medications and Allergies Home Medications Medication Instructions Recorded Confirmed Type Hydrocodone/Acetaminophen 1 tab PO TID PRN 05/01/14 01/10/18 History [Hydrocodone-Acetamin 7.5-325] Montelukast [Singulair] 10 mg PO DAILY 05/01/14 01/10/18 History busPIRone HCl [Buspar] 10 mg PO BID 05/01/14 01/10/18 History Citalopram Hydrobromide [CeleXA] 20 mg PO DAILY 09/13/17 01/10/18 History Ibuprofen [Motrin] 800 mg PO BID 09/13/17 01/10/18 History Lisinopril [Prinivil] 20 mg PO DAILY 09/13/17 01/10/18 History Magnesium Oxide [Mag-Ox] 400 mg PO DAILY 09/13/17 01/10/18 History Multivitamins, Thera [Multivitamin 1 tab PO DAILY 09/13/17 01/10/18 History (formulary)] Ranitidine HCl [Zantac] 150 mg PO DAILY 09/13/17 01/10/18 History metFORMIN HCL [Glucophage] 500 mg PO DAILY 09/13/17 01/10/18 History Tamsulosin HCl [Flomax] 0.4 mg PO DAILY 12/19/17 01/10/18 History Atorvastatin [Lipitor] 20 mg PO DAILY #30 tab 12/20/17 01/10/18 Rx Aspirin 81 mg PO DAILY chew 12/29/17 01/10/18 Rx Nitroglycerin Sl Tabs [Nitrostat] 0.4 mg SUBLINGUAL Q5M PRN tab 12/29/17 Rx amLODIPine [Norvasc] 5 mg PO DAILY tab 12/29/17 01/10/18 Rx Allergies Allergy/AdvReac Type Severity Reaction Status Date / Time dipyridamole AdvReac Nausea & Verified 01/10/18 19:04 [From Persantine] Vomiting Iodinated Contrast- Oral and AdvReac Nausea & Verified 01/10/18 19:04 IV Dye Vomiting [Iodinated Contrast Media - IV Dye] morphine AdvReac Nausea & Verified 01/10/18 19:04 Vomiting Physical Exam Vitals: Vital Signs Temp Pulse Pulse Pulse Resp BP BP 01/11/18 04:00 55 L 18 01/11/18 03:50 97.9 F 57 L 18 119/58 01/10/18 23:10 64 18 01/10/18 22:45 97.5 F L 56 L 18 166/82 01/10/18 21:50 98.3 F 65 18 137/81 01/10/18 19:00 98.0 F 56 L 20 159/86 01/10/18 18:00 56 L 20 168/85 01/10/18 17:00 54 L 20 150/82 01/10/18 16:00 56 L 20 158/86 01/10/18 15:01 56 L 20 127/61 01/10/18 13:50 97.9 F 57 L 20 133/72 Pulse Ox 01/11/18 04:00 01/11/18 03:50 94 L 01/10/18 23:10 01/10/18 22:45 96 01/10/18 21:50 96 01/10/18 19:00 98 01/10/18 18:00 96 01/10/18 17:00 98 01/10/18 16:00 97 01/10/18 15:01 95 01/10/18 13:50 99 Intake and Output 01/10/18 01/11/18 01/11/18 22:59 06:59 14:59 Intake Total 147.186 Balance 147.186 Intake: Intake, IV Titration 147.186 Amount Heparin Sod,Pork in 0.45% 147.186 NaCl 25,000 unit In 0.45 % NaCl 1 500ml.bag @ 11. 24 UNITS/KG/HR 19.98 mls/ hr IV .Q24H [facility] Rx#: [id number] Other: Voiding Method Toilet # Voids 2 Weight 86.4 kg GENERAL: This is a 67-year-old male in no apparent distress at the time of my examination. HEENT: Head is atraumatic, normocephalic. Pupils are equal, round. Sclerae anicteric. Conjunctivae are clear. Mucous membranes of the mouth are moist. Neck is supple. There is no jugular venous distention. No carotid bruit is heard. LUNGS: Clear to auscultation no wheezes, rales or rhonchi. No chest wall tenderness is noted on palpation or with deep breathing. HEART: Regular rate and rhythm without murmurs, rubs or gallops. S1 and S2 heard. ABDOMEN: Soft, nontender. Bowel sounds are heard. No organomegaly noted. EXTREMITIES: No evidence of peripheral edema and no calf tenderness noted. VASCULAR: Radial and dorsalis pedis pulses palpated, no evidence of clubbing. NEUROLOGIC: Patient is awake, alert and oriented x3. Results 01/10/18 13:53 01/10/18 13:53 Cardiac Enzymes 01/10/18 01/10/18 01/10/18 Range/Units 13:53 13:53 20:38 AST 24 (17-59) U/L CK-MB (CK-2) 3.9 H* 5.5 H* (0.0-2.4) ng/mL Troponin I <0.012 <0.012 (0.000-0.034) ng/mL 01/11/18 Range/Units 01:41 AST (17-59) U/L CK-MB (CK-2) 6.5 H* (0.0-2.4) ng/mL Troponin I <0.012 (0.000-0.034) ng/mL Coagulation 01/10/18 01/11/18 Range/Units 13:53 01:41 PT 10.3 (9.0-12.0) sec APTT 24.6 42.3 H (22.0-30.0) sec Lipids 01/10/18 Range/Units 13:53 Triglycerides 265 H (<150) mg/dL Cholesterol 140 (<200) mg/dL HDL Cholesterol 47 (40-60) mg/dL CBC 01/10/18 Range/Units 13:53 WBC 7.8 (3.8-10.6) k/uL RBC 4.13 L (4.30-5.90) m/uL Hgb 13.3 (13.0-17.5) gm/dL Hct 38.6 L (39.0-53.0) % Plt Count 189 (150-450) k/uL Comprehensive Metabolic Panel 01/10/18 Range/Units 13:53 Sodium 135 L (137-145) mmol/L Potassium 4.2 (3.5-5.1) mmol/L Chloride 99 (98-107) mmol/L Carbon Dioxide 26 (22-30) mmol/L BUN 13 (9-20) mg/dL Creatinine 0.90 (0.66-1.25) mg/dL Glucose 174 H (74-99) mg/dL Calcium 9.2 (8.4-10.2) mg/dL AST 24 (17-59) U/L ALT 29 (21-72) U/L Alkaline Phosphatase 55 (38-126) U/L Total Protein 6.2 L (6.3-8.2) g/dL Albumin 3.9 (3.5-5.0) g/dL Current Medications Generic Name Dose Route Start Last Admin Trade Name Freq PRN Reason Stop Dose Admin Hydrocodone Bitart/Acetaminophen 1 each 01/10/18 16:34 Dudley 7.5-325 PO TID PRN Pain Amlodipine Besylate 5 mg 01/11/18 09:00 Norvasc PO DAILY [facility] Aspirin 325 mg 01/11/18 09:00 Aspirin PO DAILY [facility] Atorvastatin Calcium 20 mg 01/11/18 09:00 Lipitor PO DAILY [facility] Buspirone HCl 10 mg 01/10/18 21:00 01/10/18 23:05 Buspar PO 10 mg BID [facility] Administration Citalopram Hydrobromide 20 mg 01/11/18 09:00 Celexa PO DAILY [facility] Famotidine 20 mg 01/11/18 09:00 Pepcid PO DAILY [facility] Heparin Sodium/Sodium Chloride 500 mls @ 19.98 mls/hr 01/10/18 16:45 02:48 25,000 unit/ Sodium Chloride IV 13.16 units/kg/hr .Q24H TACOS 23.4 mls/hr Titration Protocol 11.24 UNITS/KG/HR Sodium Chloride 1,000 mls @ 20 mls/hr 01/10/18 16:45 01/10/18 19:24 Saline 0.9% IV 20 mls/hr .Q24H [facility] Administration Ibuprofen 800 mg 01/10/18 21:00 01/10/18 23:05 Motrin PO 800 mg BID [facility] Administration Lisinopril 20 mg 01/11/18 09:00 Zestril PO DAILY [facility] Magnesium Oxide 400 mg 01/11/18 09:00 Mag-Ox PO DAILY [facility] Metformin HCl 500 mg 01/11/18 07:30 Glucophage PO AC-BRKFST [facility] Montelukast Sodium 10 mg 01/11/18 09:00 Singulair PO DAILY [facility] Multivitamins 1 each 01/11/18 12:00 Theragran PO DAILY@1200 [facility] Nitroglycerin 1 inch 01/10/18 18:00 01/11/18 05:48 Nitro-Bid Oint TOPICAL Not Given Q6HR [facility] Nitroglycerin 0.4 mg 01/10/18 16:31 Nitrostat SUBLINGUAL Q5M PRN Chest Pain Tamsulosin HCl 0.4 mg 01/11/18 09:00 Flomax PO DAILY [facility] Intake and Output 01/10/18 01/11/18 01/11/18 22:59 06:59 14:59 Intake Total 147.186 Balance 147.186 Intake: Intake, IV Titration 147.186 Amount Heparin Sod,Pork in 0.45% 147.186 NaCl 25,000 unit In 0.45 % NaCl 1 500ml.bag @ 11. 24 UNITS/KG/HR 19.98 mls/ hr IV .Q24H [facility] Rx#: [id number] Other: Voiding Method Toilet # Voids 2 Weight 86.4 kg 01/10/18 13:53 01/10/18 13:53 Assessment and Plan Assessment: ASSESSMENT Atypical chest pain with associated shortness of breath, dizziness and increased weakness and fatigue. Diabetes mellitus Hypertension Dyslipidemia Sinus bradycardia on no AV jen blocking agents, symptomatic Obstructive sleep apnea, cannot tolerate CPAP PLAN Mr. Taylor, being diabetic, has atypical symptoms that may be related to coronary artery disease. He also has EKG abnormalities quite concerning as well. We recommend cardiac catheterization to further assess by his primary government affairs specialist Dr. Jaramillo. I have discussed the risks, benefits and alternative therapies for the above- mentioned procedure and for both sedation/analgesia as well as necessary blood product administration, if indicated, as they pertain to this patient. The patient has indicated understanding and acceptance of the risks and procedures discussed. His is also at the bedside. He is agreeable to move forward with above stated procedure. He has an allergy to contrast and prep will be ordered appropriately. Further recommendations to follow based on clinical course. Thank you kindly for this consultation. Nurse Practitioner note has been reviewed, I agree with a documented findings and plan of care. Patient was seen and examined.
[2018-01-11] MEDS ORDERED: MULTIVITAMINS, THERA 1 EACH TAB PO SCH (12:00)
[2018-01-11 12:48] LABS: Glucose,Whole Blood 109 mg/dL (75-99)
[2018-01-11 13:22] LABS: Hemoglobin A1C 6.9 % (4.0-6.0)
[2018-01-11] MEDS ORDERED: LIDOCAINE 1% INJ 10MG/ML (20 ML MDV) ONE (14:16)
[2018-01-11] MEDS ORDERED: MIDAZOLAM 2 MG/2 ML VIAL ONE (14:16)
[2018-01-11] MEDS ORDERED: fentaNYL (PF) 50 MCG/ML 2 ML AMP ONE (14:17)
[2018-01-11] MEDS: SODIUM CHLORIDE 0.9% 1,000 ML IV SCH (14:22)
[2018-01-11] MEDS ORDERED: MIDAZOLAM 2 MG/2 ML VIAL IVP ONE (14:26)
[2018-01-11] MEDS ORDERED: fentaNYL (PF) 50 MCG/ML 2 ML AMP IVP ONE (14:27)
[2018-01-11] MEDS ORDERED: LIDOCAINE 1% INJ 10MG/ML (20 ML MDV) SQ ONE ×2 (14:30→14:31)
[2018-01-11] MEDS ORDERED: METOPROLOL TARTRATE 5 MG/5 ML VIAL IVP ONE (14:45)
[2018-01-11] MEDS ORDERED: NITROGLYCERIN SL TABS 0.4 MG TAB SUBLINGUAL ONE (14:49)
[2018-01-11] MEDS ORDERED: IOPAMIDOL-370 125ML BTL INJ ONE (14:49)
[2018-01-11] MEDS ORDERED: LABETALOL 5 MG/ML VIAL MDV ONE (14:53)
[2018-01-11] MEDS ORDERED: RX INFO: IV CONTRAST WAS GIVEN 1 EACH MISC MISCELLANE PRN (14:58)
[2018-01-11] MEDS ORDERED: HYDROcodone/APAP 5-325MG 1 EACH TAB PO PRN (14:58)
--- NOTE | 2018-01-11 17:16 | CC ---
CARDIAC CATHETERIZATION REPORT This patient was admitted to the hospital with a history of recurrent chest pain as well as a near syncopal spell. Patient has extensive workup in the past which has been negative. In view of the recurrent episodes of the chest pain, patient was recommended to have a cardiac catheterization to rule out any underlying significant coronary artery disease. PROCEDURE: The right groin was prepped and draped in the usual manner and the skin was infiltrated with 2% Xylocaine. The right femoral artery was entered using Seldinger technique. A #6- Maori sheath was placed in. Selective coronary angiography was then performed in multiple projections and the left ventricular pressures were obtained. Sheath was removed and good hemostasis was achieved with the use of Angio-Seal. HEMODYNAMICS: The left ventricular end-diastolic pressure is 12 mmHg prior to angiography. No gradient is noted across the aortic valve. SELECTIVE CORONARY ANGIOGRAPHY: Left main coronary artery is normal and patent. LAD is a good caliber blood vessel and gives rise to a good-sized diagonal branch. LAD and its branches are normal. Circumflex coronary artery gives rise to high small size obtuse marginal branch. Subsequently it is normal. Right coronary artery is dominant in distribution and gives rise to the PDA branch. Right coronary artery and its branches are normal. FINAL IMPRESSION: 1. This study reveals normal coronary arteries. 2. Left ventricular end-diastolic pressure is normal. RECOMMENDATIONS: Continue medical treatment. MMODL / IJN: [id number] /
[2018-01-11 17:40] LABS: Glucose,Whole Blood 271 mg/dL (75-99)
[2018-01-11 20:11] VITALS: RESP 16
[2018-01-11 20:35] LABS: Glucose,Whole Blood 328 mg/dL (75-99)
[2018-01-11] MEDS: INSULIN ASPART 100 UNIT/ML 1 ML 10 ML VIAL SQ SCH (22:17)
[2018-01-12] MEDS ORDERED: MAG HYDROX/AL HYDROX/SIMETH 30 ML CUP PO PRN (02:10)
[2018-01-12] MEDS: NITROGLYCERIN OINT 1 INCH/GM PACKET TOPICAL SCH (05:10)
[2018-01-12 06:43] LABS: Glucose,Whole Blood 151 mg/dL (75-99)
--- NOTE | 2018-01-12 07:20 | P.PN ---
Subjective Progress Note Date: 01/12/18 Principal diagnosis: Chest discomfort Mr. Taylor is a pleasant 67-year-old male past medical history significant for diabetes mellitus, hypertension, dyslipidemia, gastroesophageal reflux disease, sleep apnea. He also recently has been suffering from frequent episodes of dizziness and currently is wearing an event monitor. He follows with Dr. Jaramillo in the office. The patient is wearing an event monitor. He states since his recent discharge at the end of December he has been feeling ongoing symptoms of dizziness, increased fatigue, palpitations and shortness of breath. Last admission medication changes were made to discontinue AV jen blocking agents secondary to bradycardia. Event monitoring company has been notified and his tracings have been reviewed. There is no evidence of any acute arrhythmia. He does continue to have sinus bradycardia with heart rate in the 50s. He is currently maintained on Norvasc 5 mg daily, lisinopril 20 mg daily, atorvastatin 20 mg daily and aspirin 81 mg daily. Because of his ongoing chest discomfort and abnormal EKG which consistent with ST changes inferiorly artery, the proceeding with a heart catheterization. The patient underwent heart catheterization yesterday by Dr. VC Jaramillo and that revealed normal coronaries. I'll follow-up with him today, he continues to be frustrated about his condition and he needs to know what's going on. I did inform the patient that the chest discomfort could be because of gastrointestinal etiology. Also I did inform the patient that we need to rule out any bradycardia arrhythmia as an etiology where he needs to have a pacemaker if that this scenario. I did advise the patient to continue wearing the event monitor at this point. The right groin is soft and nontender and without any bruises. Objective - Vital Signs Vital signs: Vital Signs Temp 99.3 F 01/12/18 04:00 Pulse 70 01/12/18 04:00 Resp 16 01/12/18 04:00 BP 179/88 01/12/18 04:00 Pulse Ox 94 L 01/12/18 04:00 Intake & Output 01/11/18 01/12/18 01/12/18 18:59 06:59 18:59 Intake Total 200 Balance 200 Intake: IV 200 Other: Voiding Method Toilet Toilet # Voids 2 - Constitutional General appearance: Present: no acute distress - Respiratory Respiratory: bilateral: CTA - Cardiovascular Rhythm: regular Heart sounds: normal: S1, S2 - Labs CBC & Chem 7: 01/10/18 13:53 01/10/18 13:53 Labs: Abnormal Lab Results - Last 24 Hours (Table) 01/11/18 01/11/18 01/11/18 Range/Units 01:41 07:41 09:18 APTT 57.4 H (22.0-30.0) sec POC Glucose (mg/dL) 103 H (75-99) mg/dL Hemoglobin A1c 6.9 H (4.0-6.0) % 01/11/18 01/11/18 01/11/18 Range/Units 12:45 17:38 20:32 APTT (22.0-30.0) sec POC Glucose (mg/dL) 109 H 271 H 328 H (75-99) mg/dL Hemoglobin A1c (4.0-6.0) % 01/12/18 Range/Units 06:36 APTT (22.0-30.0) sec POC Glucose (mg/dL) 151 H (75-99) mg/dL Hemoglobin A1c (4.0-6.0) % Assessment and Plan Assessment: Assessment #1 chest discomfort, noncardiac #2 sinus bradycardia #3 multiple comorbid conditions Plan #1 from the cardiac vascular standpoint of view, the patient can be discharged home #2 continue wearing the event monitor #3 follow-up with the patient. Thank you for allowing us participate in his care
[2018-01-12] MEDS ORDERED: INSULIN ASPART 100 UNIT/ML 1 ML 10 ML VIAL SQ SCH (07:30)
--- NOTE | 2018-01-12 08:20 | HP ---
HISTORY AND PHYSICAL A 67-year-old white male who came in with atypical chest pain by Cardiology for possible heart catheterization. Monitor shows some ischemic dysrhythmia, and Cardiology sent him in for direct admission. HOME MEDICATIONS INCLUDE: 1. [place]. 2. Singular. 3. BuSpar. 4. Celexa. 5. Motrin. 6. Prinivil. 7. Mag oxide. 8. Metformin. 9. Flomax. 10.Zantac. 11.Multivitamin. ALLERGIES: PERSANTINE, MORPHINE, IODINE. 14 POINT REVIEW OF SYSTEMS: Negative except for as mentioned in HPI. PAST MEDICAL HISTORY: Diabetes mellitus, GERD, dyslipidemia, hypertension, sleep apnea, bypass, syncope, insulin-dependent diabetes mellitus, some sort of sleep apnea, hiatal hernia, varicose veins, hemorrhoids, hyperkalemia, surgeries, arthroscopy right knee, bilateral cataracts, inguinal hernia repair, Ben fundoplication. SOCIAL HISTORY: No smoking or alcohol. No illicit drugs. FAMILY HISTORY: Mother pacemaker. Father dementia. PHYSICAL EXAM: Vital signs stable, afebrile. CARDIOVASCULAR: S1, S2. . LUNGS: Clear. PSYCH: Fair mood and affect. ENDOCRINE: He appears disheveled. GI: Soft, nontender, distended, obesity. HEMATOLOGY: Negative Homans. PSYCH: Fair mood and affect. Temp 97.9, pulse 56 to 57, respiratory 18 to 20, blood pressure is 120 to 130s/70s to 60s, oxygen 99% on room air. ASSESSMENT: 1. Chest pain, unstable angina. 2. Insulin-dependent diabetes mellitus. 3. Hypertension. 4. Depression, neuropathy continue current treatment. Possible discharge home once Cardiology clears. Possible angiogram. MMODL / IJN: [id number] /
[2018-01-12] MEDS: busPIRone HCl 10 MG TAB PO SCH (08:25)
[2018-01-12] MEDS: ASPIRIN 325 MG TAB PO SCH (08:25)
[2018-01-12] MEDS: ATORVASTATIN 20 MG TAB PO SCH (08:26)
[2018-01-12] MEDS: FAMOTIDINE 20 MG TAB PO SCH (08:26)
[2018-01-12] MEDS: amLODIPine 5 MG TAB PO SCH (08:26)
[2018-01-12] MEDS: CITALOPRAM HYDROBROMIDE 20 MG TAB PO SCH (08:26)
[2018-01-12] MEDS: MONTELUKAST 10 MG TAB PO SCH (08:27)
[2018-01-12] MEDS: LISINOPRIL 20 MG TAB PO SCH (08:27)
[2018-01-12] MEDS: IBUPROFEN 800 MG TAB PO SCH (08:27)
[2018-01-12] MEDS: MAGNESIUM OXIDE 400 MG TAB PO SCH (08:27)
[2018-01-12] MEDS: TAMSULOSIN 0.4 MG CAP.ER.24H PO SCH (08:27)
[2018-01-12 09:06] VITALS: BP 190/104; PULSE 88; TEMP 98.8
[2018-01-12] MEDS: INSULIN ASPART 100 UNIT/ML 1 ML 10 ML VIAL SQ SCH (11:20)
[2018-01-14] MEDS ORDERED: metFORMIN 500 MG TAB PO SCH (07:30)
== END 2018-01-12 11:05 | disposition home or self-care (01) ==
LOC: EC 13:47 → 3OBS 16:31
PROVIDERS: ADMIT Family Medicine; ATTEND Family Medicine
DX: I20.0 Unstable angina (principal); R94.31 Abnormal electrocardiogram [ECG] [EKG]; R42 Dizziness and giddiness; R53.1 Weakness; I44.4 Left anterior fascicular block; I10 Essential (primary) hypertension; E11.42 Type 2 diabetes mellitus with diabetic polyneuropathy; K21.9 Gastro-esophageal reflux disease without esophagitis; G47.33 Obstructive sleep apnea (adult) (pediatric); E78.5 Hyperlipidemia, unspecified; K44.9 Diaphragmatic hernia without obstruction or gangrene; F41.9 Anxiety disorder, unspecified; I95.2 Hypotension due to drugs; T46.3X5A Adverse effect of coronary vasodilators, initial encounter; I83.90 Asymptomatic varicose veins of unspecified lower extremity; K64.9 Unspecified hemorrhoids; K59.00 Constipation, unspecified; R00.1 Bradycardia, unspecified; F32.9 Major depressive disorder, single episode, unspecified; E66.9 Obesity, unspecified; Z68.27 Body mass index [BMI] 27.0-27.9, adult; Z99.89 Dependence on other enabling machines and devices; Z79.84 Long term (current) use of oral hypoglycemic drugs; Z79.1 Long term (current) use of non-steroidal anti-inflammatories (NSAID); Z79.82 Long term (current) use of aspirin; Z79.899 Other long term (current) drug therapy; Z88.5 Allergy status to narcotic agent; Z88.8 Allergy status to other drugs, medicaments and biological substances; Z91.041 Radiographic dye allergy status; Z90.49 Acquired absence of other specified parts of digestive tract; Z98.42 Cataract extraction status, left eye; Z98.41 Cataract extraction status, right eye; Z95.818 Presence of other cardiac implants and grafts; Z86.14 Personal history of Methicillin resistant Staphylococcus aureus infection; Z81.8 Family history of other mental and behavioral disorders; Z82.49 Family history of ischemic heart disease and other diseases of the circulatory system
CPT/HCPCS: 99285 ×2; 96365 ×2; 96366 ×5; 96376 ×2; 96361 ×2; 96375; 36415; 93005; 93458; 80061; 80053; 82550 ×2; 82553 ×2; 83735; 84484 ×2; 85025; 85610; 85730 ×2; 83036; 71046; G0378 ×3; C1760; C1894; C1769; J2250; J1200; J1644 ×2; J2930; J2001; J3010; Q9967

== ENCOUNTER 2018-04-09 10:54 | Emergency (ER) | payer MEDICARE, OTHER ==
[2018-04-09] MEDS ORDERED: SODIUM CHLORIDE 0.9% 1,000 ML IV STA (11:11)
[2018-04-09] MEDS ORDERED: SODIUM CHLORIDE 0.9% 500 ML 500 ML IV STA (11:11)
--- NOTE | 2018-04-09 11:17 | ED ---
Dizziness HPI - General Chief Complaint: Syncope Stated Complaint: near syncope Time Seen by Provider: 04/09/18 11:10 Source: patient, EMS, RN notes reviewed, old records reviewed Mode of arrival: EMS Limitations: no limitations - History of Present Illness Initial Comments: This is a 67-year-old male the ER for evaluation of near syncopal event. Dizziness lightheadedness. Patient is had recent medication changes including adding blood pressure medication secondary to elevated blood pressure. Patient denies any chest pain no shortness of breath no current abdominal pain. Occasional headaches. Patient has not had any recent fevers nausea vomiting or diarrhea. Is eating and drinking appropriately. Patient does admit to blood pressure running high lately. Patient states he bent down and when he stood up he became very lightheaded and dizzy very sweaty and noted he turned very pale. 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) Timing: sudden onset Description: sense of movement, "room spinning" History of Same: No History of Trauma: No Severity: moderate Improves With: nothing Worsens With: nothing Associated Symptoms: denies other symptoms - Related Data Home Medications Medication Instructions Recorded Confirmed Hydrocodone/Acetaminophen 1 tab PO TID PRN 05/01/14 01/10/18 [Hydrocodone-Acetamin 7.5-325] Montelukast [Singulair] 10 mg PO DAILY 05/01/14 01/10/18 busPIRone HCl [Buspar] 10 mg PO BID 05/01/14 01/10/18 Citalopram Hydrobromide [CeleXA] 20 mg PO DAILY 09/13/17 01/10/18 Ibuprofen [Motrin] 800 mg PO BID 09/13/17 01/10/18 Lisinopril [Prinivil] 20 mg PO DAILY 09/13/17 01/10/18 Magnesium Oxide [Mag-Ox] 400 mg PO DAILY 09/13/17 01/10/18 Multivitamins, Thera [Multivitamin 1 tab PO DAILY 09/13/17 01/10/18 (formulary)] Ranitidine HCl [Zantac] 150 mg PO DAILY 09/13/17 01/10/18 metFORMIN HCL [Glucophage] 500 mg PO DAILY 09/13/17 01/10/18 Tamsulosin HCl [Flomax] 0.4 mg PO DAILY 12/19/17 01/10/18 Previous Rx's Medication Instructions Recorded Atorvastatin [Lipitor] 20 mg PO DAILY #30 tab 12/20/17 Aspirin 81 mg PO DAILY chew 12/29/17 Nitroglycerin Sl Tabs [Nitrostat] 0.4 mg SUBLINGUAL Q5M PRN tab 12/29/17 amLODIPine [Norvasc] 5 mg PO DAILY tab 12/29/17 Allergies Allergy/AdvReac Type Severity Reaction Status Date / Time dipyridamole AdvReac Nausea & Verified 01/10/18 19:04 [From Persantine] Vomiting Iodinated Contrast- Oral and AdvReac Nausea & Verified 01/10/18 19:04 IV Dye Vomiting [Iodinated Contrast Media - IV Dye] morphine AdvReac Nausea & Verified 01/10/18 19:04 Vomiting Review of Systems ROS Statement: Those systems with pertinent positive or pertinent negative responses have been documented in the HPI. ROS Other: All systems not noted in ROS Statement are negative. Past Medical History Past Medical History: Chest Pain / Angina, Diabetes Mellitus, GERD/Reflux, Hyperlipidemia, Hypertension, Sleep Apnea/CPAP/BIPAP, Syncope Additional Past Medical History / Comment(s): IDDM, ERIKA cannot tolerate CPAP, varicose veins, hiatal hernia, constipation occas bleeding with stools, hemorrhoids, hyperkalemia History of Any Multi-Drug Resistant Organisms: MRSA Date of last positivie culture/infection: November 2017 MDRO Source:: Abdomen at [facility] per Dr. Verdin Past Surgical History: Back Surgery, Cholecystectomy, Heart Catheterization, Hernia Repair Additional Past Surgical History / Comment(s): arthroscopy right knee. bilateral cataracts,jeancarlos inguinal hernia repair, alban funloplasty Past Anesthesia/Blood Transfusion Reactions: No Reported Reaction, Motion Sickness Past Psychological History: Anxiety Smoking Status: Never smoker Past Alcohol Use History: None Reported Past Drug Use History: None Reported - Past Family History Mother Additional Family Medical History / Comment(s): HAD PACEMAKER, age 86 Father Family Medical History: Dementia General Exam Limitations: no limitations General appearance: alert, in no apparent distress Head exam: Present: atraumatic, normocephalic, normal inspection Eye exam: Present: normal appearance, PERRL, EOMI. Absent: scleral icterus, conjunctival injection, periorbital swelling ENT exam: Present: normal exam, mucous membranes moist Neck exam: Present: normal inspection. Absent: tenderness, meningismus, lymphadenopathy Respiratory exam: Present: normal lung sounds bilaterally. Absent: respiratory distress, wheezes, rales, rhonchi, stridor Cardiovascular Exam: Present: regular rate, normal rhythm, normal heart sounds. Absent: systolic murmur, diastolic murmur, rubs, gallop, clicks GI/Abdominal exam: Present: soft, normal bowel sounds. Absent: distended, tenderness, guarding, rebound, rigid Extremities exam: Present: normal inspection, full ROM, normal capillary refill. Absent: tenderness, pedal edema, joint swelling, calf tenderness Back exam: Present: normal inspection Neurological exam: Present: alert, oriented X3, CN II-XII intact Psychiatric exam: Present: normal affect, normal mood Skin exam: Present: warm, dry, intact, normal color. Absent: rash Course Vital Signs 04/09/18 04/09/18 04/09/18 10:58 11:30 12:30 Temperature 98.3 F Pulse Rate 61 61 60 Respiratory 18 18 18 Rate Blood Pressure 134/91 134/78 141/85 O2 Sat by Pulse 97 97 Oximetry 04/09/18 13:00 Temperature Pulse Rate 65 Respiratory 20 Rate Blood Pressure 145/92 O2 Sat by Pulse 97 Oximetry - Reevaluation(s) Reevaluation #1: 04/09/18 14:07 Medical record is reviewed Patient has prior heart catheterization 3 months ago and has clean coronary arteries Reevaluation #2: 04/09/18 14:07 Patient is without syncopal like event here in the emergency room, states he feels within normal limits EKG Findings - EKG Comments: EKG Findings:: EKG shows NSR 61 TN 170 QRS 102 QTc 442 Medical Decision Making - Medical Decision Making 67 male the ER for evaluation, today he presents for evaluation regards to near syncopal event. Patient has normal EKG, feeling normal throughout ER stay with no headache chest pain shortness of breath or abdominal pain, CAT scans are normal patient can be discharged home - Lab Data Result diagrams: 04/09/18 10:55 04/09/18 10:55 Lab Results 04/09/18 04/09/18 04/09/18 Range/Units 10:55 10:55 10:55 WBC 9.0 (3.8-10.6) k/uL RBC 4.06 L (4.30-5.90) m/uL Hgb 13.2 (13.0-17.5) gm/dL Hct 39.2 (39.0-53.0) % MCV 96.4 (80.0-100.0) fL MCH 32.5 (25.0-35.0) pg MCHC 33.7 (31.0-37.0) g/dL RDW 13.2 (11.5-15.5) % Plt Count 197 (150-450) k/uL Neutrophils % 77 % Lymphocytes % 15 % Monocytes % 5 % Eosinophils % 2 % Basophils % 0 % Neutrophils # 6.9 (1.3-7.7) k/uL Lymphocytes # 1.3 (1.0-4.8) k/uL Monocytes # 0.5 (0-1.0) k/uL Eosinophils # 0.2 (0-0.7) k/uL Basophils # 0.0 (0-0.2) k/uL PT (9.0-12.0) sec INR (<1.2) APTT (22.0-30.0) sec Sodium 131 L (137-145) mmol/L Potassium 4.5 (3.5-5.1) mmol/L Chloride 99 (98-107) mmol/L Carbon Dioxide 23 (22-30) mmol/L Anion Gap 9 mmol/L BUN 11 (9-20) mg/dL Creatinine 0.88 (0.66-1.25) mg/dL Est GFR (CKD-EPI)AfAm >90 (>60 ml/min/1.73 sqM) Est GFR (CKD-EPI)NonAf 89 (>60 ml/min/1.73 sqM) Glucose 198 H (74-99) mg/dL Calcium 8.9 (8.4-10.2) mg/dL Phosphorus 3.8 (2.5-4.5) mg/dL Magnesium 1.5 L (1.6-2.3) mg/dL Total Bilirubin 0.5 (0.2-1.3) mg/dL AST 20 (17-59) U/L ALT 26 (21-72) U/L Alkaline Phosphatase 49 (38-126) U/L Total Creatine Kinase 53 L (55-170) U/L CK-MB (CK-2) 2.2 (0.0-2.4) ng/mL CK-MB (CK-2) Rel Index 4.2 Troponin I <0.012 (0.000-0.034) ng/mL Total Protein 6.3 (6.3-8.2) g/dL Albumin 3.7 (3.5-5.0) g/dL TSH 3.190 (0.465-4.680) mIU/L Urine Color Urine Appearance (Clear) Urine pH (5.0-8.0) Ur Specific [place] (1.001-1.035) Urine Protein (Negative) Urine Glucose (UA) (Negative) Urine Ketones (Negative) Urine Blood (Negative) Urine Nitrite (Negative) Urine Bilirubin (Negative) Urine Urobilinogen (<2.0) mg/dL Ur Leukocyte Esterase (Negative) 04/09/18 04/09/18 Range/Units 10:55 10:55 WBC (3.8-10.6) k/uL RBC (4.30-5.90) m/uL Hgb (13.0-17.5) gm/dL Hct (39.0-53.0) % MCV (80.0-100.0) fL MCH (25.0-35.0) pg MCHC (31.0-37.0) g/dL RDW (11.5-15.5) % Plt Count (150-450) k/uL Neutrophils % % Lymphocytes % % Monocytes % % Eosinophils % % Basophils % % Neutrophils # (1.3-7.7) k/uL Lymphocytes # (1.0-4.8) k/uL Monocytes # (0-1.0) k/uL Eosinophils # (0-0.7) k/uL Basophils # (0-0.2) k/uL PT 10.3 (9.0-12.0) sec INR 1.1 (<1.2) APTT 22.1 (22.0-30.0) sec Sodium (137-145) mmol/L Potassium (3.5-5.1) mmol/L Chloride (98-107) mmol/L Carbon Dioxide (22-30) mmol/L Anion Gap mmol/L BUN (9-20) mg/dL Creatinine (0.66-1.25) mg/dL Est GFR (CKD-EPI)AfAm (>60 ml/min/1.73 sqM) Est GFR (CKD-EPI)NonAf (>60 ml/min/1.73 sqM) Glucose (74-99) mg/dL Calcium (8.4-10.2) mg/dL Phosphorus (2.5-4.5) mg/dL Magnesium (1.6-2.3) mg/dL Total Bilirubin (0.2-1.3) mg/dL AST (17-59) U/L ALT (21-72) U/L Alkaline Phosphatase (38-126) U/L Total Creatine Kinase (55-170) U/L CK-MB (CK-2) (0.0-2.4) ng/mL CK-MB (CK-2) Rel Index Troponin I (0.000-0.034) ng/mL Total Protein (6.3-8.2) g/dL Albumin (3.5-5.0) g/dL TSH (0.465-4.680) mIU/L Urine Color Yellow Urine Appearance Clear (Clear) Urine pH 6.0 (5.0-8.0) Ur Specific [place] 1.016 (1.001-1.035) Urine Protein Trace H (Negative) Urine Glucose (UA) 1+ H (Negative) Urine Ketones Negative (Negative) Urine Blood Negative (Negative) Urine Nitrite Negative (Negative) Urine Bilirubin Negative (Negative) Urine Urobilinogen <2.0 (<2.0) mg/dL Ur Leukocyte Esterase Negative (Negative) - Radiology Data Radiology results: report reviewed (CT brain CTA chest negative), image reviewed Disposition Clinical Impression: Near syncope Disposition: HOME SELF-CARE Condition: Good Instructions: Near Syncope (ED) Is patient prescribed a controlled substance at d/c from ED?: No Referrals: Hawk Gaona MD [Primary Care Provider] - 1-2 days
[2018-04-09 11:40] LABS: Appearance,Urine Clear (Clear); Bilirubin,Urine Negative (Negative); Blood,Urine Negative (Negative); Color,Urine Yellow; Glucose,Urine (UA) 1+ (Negative); Ketones,Urine Negative (Negative); Leukocyte Esterase,Urine Negative (Negative); Nitrite,Urine Negative (Negative); Protein,Urine Trace (Negative); Specific Gravity,Urine 1.016 (1.001-1.035); Urobilinogen,Urine <2.0 mg/dL (<2.0)
[2018-04-09 11:42] LABS: Basophils % (A) 0 %; Eosinophils # (A) 0.2 k/uL (0-0.7); Eosinophils % (A) 2 %; HCT 39.2 % (39.0-53.0); HGB 13.2 gm/dL (13.0-17.5); Lymphocytes # (A) 1.3 k/uL (1.0-4.8); Lymphocytes % (A) 15 %; MCH 32.5 pg (25.0-35.0); MCHC 33.7 g/dL (31.0-37.0); MCV 96.4 fL (80.0-100.0); Monocytes # (A) 0.5 k/uL (0-1.0); Monocytes % (A) 5 %; Neutrophils # (A) 6.9 k/uL (1.3-7.7); Neutrophils % (A) 77 %; Platelet Count 197 k/uL (150-450); RBC 4.06 m/uL (4.30-5.90); RDW 13.2 % (11.5-15.5)
[2018-04-09 11:47] LABS: Albumin 3.7 g/dL (3.5-5.0); Anion Gap 9 mmol/L; Blood Urea Nitrogen 11 mg/dL (9-20); Calcium 8.9 mg/dL (8.4-10.2); Carbon Dioxide 23 mmol/L (22-30); Chloride 99 mmol/L (98-107); Glucose 198 mg/dL (74-99); Sodium 131 mmol/L (137-145); Total Bilirubin 0.5 mg/dL (0.2-1.3); Total Protein 6.3 g/dL (6.3-8.2)
[2018-04-09 11:55] LABS: INR 1.1 (<1.2); Partial Thromboplastin Time 22.1 sec (22.0-30.0); Prothrombin Time 10.3 sec (9.0-12.0)
[2018-04-09 11:56] LABS: ALT 26 U/L (21-72); AST 20 U/L (17-59); Alkaline Phosphatase 49 U/L (38-126); Magnesium 1.5 mg/dL (1.6-2.3); Phosphorus 3.8 mg/dL (2.5-4.5); Potassium 4.5 mmol/L (3.5-5.1)
[2018-04-09 12:14] LABS: Creatine Kinase 53 U/L (55-170)
[2018-04-09 12:26] LABS: Creatine Kinase MB 2.2 ng/mL (0.0-2.4); Troponin I <0.012 ng/mL (0.000-0.034)
[2018-04-09] MEDS ORDERED: MAGNESIUM OXIDE 400 MG TAB PO STA (12:38)
[2018-04-09] MEDS ORDERED: FAMOTIDINE 20 MG/2 ML VIAL IV STA (12:39)
[2018-04-09] MEDS ORDERED: diphenhydrAMINE 50 MG/ML 1 ML VIAL IVP STA (12:39)
[2018-04-09] MEDS ORDERED: methylPREDNISolone SOD SUCCI 125 MG/2 ML VIAL IV STA (12:39)
--- NOTE | 2018-04-09 13:52 | CT ---
EXAMINATION TYPE: CT brain wo con DATE OF EXAM: 04/09/2018 COMPARISON: Previous study dated 03/25/2013 HISTORY: Near syncope CT DLP: 1093.4 mGycm Automated exposure control for dose reduction was used. FINDINGS: There are generalized changes of sulcal prominence and ventriculomegaly, compatible with atrophic [place]ge. There is diffuse periventricular white matter lucency, compatible with small vessel ischemic [place]. There is some physiologic calcification of the basal ganglia. There is no acute focal lesion, ma ss effect or midline shift identified. I do not see evidence of intracranial blood. There is mucoperiosteal thickening involving the right maxillary sinus. Visualized portions of the pa ranasal sinuses and mastoids are otherwise unremarkable. The bony calvarium is intact. IMPRESSION: 1. NO ACUTE INTRACRANIAL ABNORMALITY. 2. DEGENERATIVE CHANGE. 3. CHRONIC RIGHT MAXILLARY SINUS MUCOSAL DISEASE.
--- NOTE | 2018-04-09 13:56 | CT ---
EXAMINATION TYPE: CT angio chest DATE OF EXAM: 04/09/2018 1:31 PM COMPARISON: Previous study dated 04/30/2014. HISTORY: Near Syncope CT DLP: 331.7 mGycm Automated exposure control for dose reduction was used. CONTRAST: CTA scan of the thorax is performed without and with IV Contrast, patient injected with 100 ml mL of Isovue 370, pulmonary embolism protocol. . FINDINGS: There is some dependent atelectasis in the dependent portions of the lungs. There is no significant axillary, mediastinal or hilar adenopathy. There is no evidence of pulmonary embolus. The aorta is normal in caliber without evidence of dissection. There is no pleural or pericardial fluid. The heart is not enlarged. There is a moderate hiatal hernia. The gallbladder has been removed. There is hypertrophic spondylosis within the spine. IMPRESSION: 1. THIS EXAMINATION IS NEGATIVE FOR PULMONARY EMBOLUS. 2. MODERATE HIATAL HERNIA. 3. DEGENERATIVE CHANGE WITHIN THE SPINE.
[2018-04-09 14:58] VITALS: BP 154/92; PULSE 63; RESP 18; TEMP 98
== END 2018-04-09 14:58 | disposition home or self-care (01) ==
LOC: EC 10:54
DX: R55 Syncope and collapse (principal); R51 Headache; I10 Essential (primary) hypertension; E11.9 Type 2 diabetes mellitus without complications; K21.9 Gastro-esophageal reflux disease without esophagitis; F41.9 Anxiety disorder, unspecified; Z88.5 Allergy status to narcotic agent; Z88.8 Allergy status to other drugs, medicaments and biological substances; Z91.041 Radiographic dye allergy status; Z79.1 Long term (current) use of non-steroidal anti-inflammatories (NSAID); Z79.84 Long term (current) use of oral hypoglycemic drugs; Z79.899 Other long term (current) drug therapy; Z86.14 Personal history of Methicillin resistant Staphylococcus aureus infection
CPT/HCPCS: 36415; 93005; 80053; 82550; 82553; 83735; 84100; 84443; 84484; 85025; 85610; 85730; 81003; 87086; 70450; 71275; 99285; 96374; 96375 ×2; 96361 ×3; J1200; J2930; Q9967

== ENCOUNTER 2018-12-17 17:04 | Emergency (ER) | payer MEDICARE, OTHER ==
[2018-12-17 17:08] VITALS: BP 177/86; PULSE 67; RESP 18; TEMP 98.4
--- NOTE | 2018-12-17 17:36 | ED ---
General Adult HPI - General Chief complaint: Dental/Oral Stated complaint: dental pain Time Seen by Provider: 12/17/18 17:09 Source: patient, family, RN notes reviewed Mode of arrival: ambulatory Limitations: no limitations - History of Present Illness Initial comments: 68-year-old male presents to the emergency department for a chief complaint of gum irritation. Patient had all his teeth removed several months ago. States that he "missed the ball" on getting dentures. Therefore patient has been using his gums to eat things like pizza, steak, and telugu fries. States that after he eats these things his gums feel inflamed and he gets sores. States these last for a couple hours and then goes away. She has been on antibiotics for this as his doctor was not sure what was wrong. States he saw his dentist and they said he was fine, but has to wait until January to get dentures.Patient has no other complaints at this time including shortness of breath, chest pain, abdominal pain, nausea or vomiting, headache, or visual changes. - Related Data Home Medications Medication Instructions Recorded Confirmed Hydrocodone/Acetaminophen 1 tab PO TID PRN 05/01/14 01/10/18 [Hydrocodone-Acetamin 7.5-325] Montelukast [Singulair] 10 mg PO DAILY 05/01/14 01/10/18 busPIRone HCl [Buspar] 10 mg PO BID 05/01/14 01/10/18 Citalopram Hydrobromide [CeleXA] 20 mg PO DAILY 09/13/17 01/10/18 Ibuprofen [Motrin] 800 mg PO BID 09/13/17 01/10/18 Lisinopril [Prinivil] 20 mg PO DAILY 09/13/17 01/10/18 Magnesium Oxide [Mag-Ox] 400 mg PO DAILY 09/13/17 01/10/18 Multivitamins, Thera [Multivitamin 1 tab PO DAILY 09/13/17 01/10/18 (formulary)] Ranitidine HCl [Zantac] 150 mg PO DAILY 09/13/17 01/10/18 metFORMIN HCL [Glucophage] 500 mg PO DAILY 09/13/17 01/10/18 Tamsulosin HCl [Flomax] 0.4 mg PO DAILY 12/19/17 01/10/18 Previous Rx's Medication Instructions Recorded Atorvastatin [Lipitor] 20 mg PO DAILY #30 tab 12/20/17 Aspirin 81 mg PO DAILY chew 12/29/17 Nitroglycerin Sl Tabs [Nitrostat] 0.4 mg SUBLINGUAL Q5M PRN tab 12/29/17 amLODIPine [Norvasc] 5 mg PO DAILY tab 12/29/17 Lidocaine Viscous 2% [Xylocaine 5 ml MUCOUS MEM Q3H #50 ml 12/17/18 Viscous] Allergies Allergy/AdvReac Type Severity Reaction Status Date / Time dipyridamole AdvReac Nausea & Verified 01/10/18 19:04 [From Persantine] Vomiting Iodinated Contrast- Oral and AdvReac Nausea & Verified 01/10/18 19:04 IV Dye Vomiting [Iodinated Contrast Media - IV Dye] morphine AdvReac Nausea & Verified 01/10/18 19:04 Vomiting Review of Systems ROS Statement: Those systems with pertinent positive or pertinent negative responses have been documented in the HPI. ROS Other: All systems not noted in ROS Statement are negative. Past Medical History Past Medical History: Chest Pain / Angina, Diabetes Mellitus, GERD/Reflux, Hyperlipidemia, Hypertension, Sleep Apnea/CPAP/BIPAP, Syncope Additional Past Medical History / Comment(s): IDDM, ERIKA cannot tolerate CPAP, varicose veins, hiatal hernia, constipation occas bleeding with stools, hemorrhoids, hyperkalemia History of Any Multi-Drug Resistant Organisms: MRSA Date of last positivie culture/infection: November 2017 MDRO Source:: Abdomen at [facility] per Dr. Verdin Past Surgical History: Back Surgery, Cholecystectomy, Heart Catheterization, Hernia Repair Additional Past Surgical History / Comment(s): arthroscopy right knee. bilateral cataracts,jeancarlos inguinal hernia repair, alban funloplasty Past Anesthesia/Blood Transfusion Reactions: No Reported Reaction, Motion Sickness Past Psychological History: Anxiety Smoking Status: Never smoker Past Alcohol Use History: Rare Past Drug Use History: None Reported - Past Family History Mother Additional Family Medical History / Comment(s): HAD PACEMAKER, age 86 Father Family Medical History: Dementia General Exam Limitations: no limitations General appearance: alert, in no apparent distress Head exam: Present: atraumatic, normocephalic, normal inspection Eye exam: Present: normal appearance, PERRL, EOMI. Absent: scleral icterus, conjunctival injection, periorbital swelling ENT exam: Present: normal exam, mucous membranes moist. Absent: normal oropharynx (Patient is edentulous, no evidence of lesions on the gumline or edema noted of the gums.) Neck exam: Present: normal inspection. Absent: tenderness, meningismus, lymphadenopathy Respiratory exam: Present: normal lung sounds bilaterally. Absent: respiratory distress, wheezes, rales, rhonchi, stridor Cardiovascular Exam: Present: regular rate, normal rhythm, normal heart sounds. Absent: systolic murmur, diastolic murmur, rubs, gallop, clicks Neurological exam: Present: alert, oriented X3, CN II-XII intact Psychiatric exam: Present: normal affect, normal mood Course Vital Signs 12/17/18 17:05 Temperature 98.4 F Pulse Rate 67 Respiratory 18 Rate Blood Pressure 177/86 O2 Sat by Pulse 96 Oximetry Medical Decision Making - Medical Decision Making 68-year-old male presents to the emergency department for a chief complaint of gum irritation. Patient had all teeth removed during the past several months. Patient was unable to follow up for dentures. States he has been using his gums to eat things such as pizza, steak, telugu fries. States that after he eats he has gum irritation swelling and sores. States his only last for a few hours and then goes away. On exam gums appear normal. There is no evidence of infection. No edema or lesions noted. Discussed with patient that come irritation is likely secondary to mechanical use of gums to eat hard foods. Discussed that he likely needs to follow up for dentures with his dentist. Patient will be given viscous lidocaine to help with sores after eating. He will follow-up with his dentist for dentures. He does request names of other dentists as his will not see him until January. Referrals were given. He will return here if he has any worsening symptoms. I did discuss not swallowing lidocaine. Disposition Clinical Impression: Gingival swelling Disposition: HOME SELF-CARE Condition: Good Instructions (If sedation given, give patient instructions): Gingivitis (ED) Additional Instructions: Please use viscous lidocaine as needed for pain. You may put small amount 1 gums to numb the area that hurts. Please follow-up with dentist as soon as possible for dentures. Please return to the emergency department if you have any worsening symptoms. [facility] Address: [address] [place] [id number] Phone: Prescriptions: Lidocaine Viscous 2% [Xylocaine Viscous] 5 ml MUCOUS MEM Q3H #50 ml Is patient prescribed a controlled substance at d/c from ED?: No Referrals: Hawk Gaona MD [Primary Care Provider] - 1-2 days Time of Disposition: 17:35
== END 2018-12-17 17:54 | disposition home or self-care (01) ==
LOC: EC 17:04
DX: K06.8 Other specified disorders of gingiva and edentulous alveolar ridge (principal); E11.9 Type 2 diabetes mellitus without complications; K21.9 Gastro-esophageal reflux disease without esophagitis; E78.5 Hyperlipidemia, unspecified; I10 Essential (primary) hypertension; F41.9 Anxiety disorder, unspecified; Z86.14 Personal history of Methicillin resistant Staphylococcus aureus infection; Z79.84 Long term (current) use of oral hypoglycemic drugs; Z79.899 Other long term (current) drug therapy; Z88.5 Allergy status to narcotic agent; Z91.041 Radiographic dye allergy status; Z88.8 Allergy status to other drugs, medicaments and biological substances; Z95.818 Presence of other cardiac implants and grafts
CPT/HCPCS: 99282

== ENCOUNTER 2019-01-22 16:03 | Inpatient (IN) | payer MEDICARE, OTHER ==
--- NOTE | 2019-01-22 17:12 | ED ---
General Adult HPI - General Chief complaint: Arrhythmia/Palpitations Stated complaint: Low Heart Rate Time Seen by Provider: 01/22/19 16:05 Source: EMS, RN notes reviewed Mode of arrival: EMS Limitations: no limitations - History of Present Illness Initial comments: This a 68-year-old male who presents emergency department after having gone to another hospital and was transferred here. Patient went to that hospital because he passed out in a store while shopping. Patient states he did feel lightheaded a couple times this morning but still when shopping. Patient states this is the 14th time he has passed out and noted throughout Y. Upon arrival to the other hospital but ER doctor told me that his heart rate was in the low 40s and atropine didn't bring it up. Patient states she's never got an answer as to why he passes out but he did have some chest pain earlier which is now subsided. Patient denies any shortness of breath or difficulty breathing. Patient denies any recent fever chills or cough. Patient denies headache patient denies numbness weakness. Patient denies abdominal pain patient denies nausea vomiting diarrhea. - Related Data Home Medications Medication Instructions Recorded Confirmed busPIRone HCl [Buspar] 10 mg PO BID 05/01/14 01/22/19 Citalopram Hydrobromide [CeleXA] 20 mg PO DAILY 09/13/17 01/22/19 Lisinopril [Prinivil] 20 mg PO DAILY 09/13/17 01/22/19 Magnesium Oxide [Mag-Ox] 400 mg PO DAILY 09/13/17 01/22/19 Multivitamins, Thera [Multivitamin 1 tab PO DAILY 09/13/17 01/22/19 (formulary)] Ranitidine HCl [Zantac] 150 mg PO BID 09/13/17 01/22/19 metFORMIN HCL [Glucophage] 500 mg PO DAILY 09/13/17 01/22/19 Tamsulosin HCl [Flomax] 0.4 mg PO DAILY 12/19/17 01/22/19 Amoxic-Pot Clav 875-125Mg 1 tab PO Q12HR 01/22/19 01/22/19 [Augmentin 875-125] Dicyclomine [Bentyl] 10 mg PO DAILY 01/22/19 01/22/19 HYDROcodone/APAP 5-325MG [[place] 1 tab PO BID 01/22/19 01/22/19 5-325] Lidocaine Viscous 2% [Xylocaine 5 ml MUCOUS MEM Q3H PRN 01/22/19 01/22/19 Viscous] Metoprolol Succinate (ER) [Toprol 25 mg PO DAILY 01/22/19 01/22/19 Xl] Previous Rx's Medication Instructions Recorded Atorvastatin [Lipitor] 20 mg PO DAILY #30 tab 12/20/17 Nitroglycerin Sl Tabs [Nitrostat] 0.4 mg SUBLINGUAL Q5M PRN tab 12/29/17 amLODIPine [Norvasc] 5 mg PO DAILY tab 12/29/17 Allergies Allergy/AdvReac Type Severity Reaction Status Date / Time dipyridamole AdvReac Nausea & Verified 01/22/19 16:44 [From Persantine] Vomiting Iodinated Contrast- Oral and AdvReac Nausea & Verified 01/22/19 16:44 IV Dye Vomiting [Iodinated Contrast Media - IV Dye] morphine AdvReac Nausea & Verified 01/22/19 16:44 Vomiting Review of Systems ROS Statement: Those systems with pertinent positive or pertinent negative responses have been documented in the HPI. ROS Other: All systems not noted in ROS Statement are negative. Past Medical History Past Medical History: Chest Pain / Angina, Diabetes Mellitus, GERD/Reflux, Hyperlipidemia, Hypertension, Sleep Apnea/CPAP/BIPAP, Syncope Additional Past Medical History / Comment(s): IDDM, ERIKA cannot tolerate CPAP, varicose veins, hiatal hernia, constipation occas bleeding with stools, hemorrhoids, hyperkalemia History of Any Multi-Drug Resistant Organisms: MRSA Date of last positivie culture/infection: November 2017 MDRO Source:: Abdomen at [facility] per Dr. Verdin Past Surgical History: Back Surgery, Cholecystectomy, Heart Catheterization, Hernia Repair Additional Past Surgical History / Comment(s): arthroscopy right knee. bilateral cataracts,jeancarlos inguinal hernia repair, alban funloplasty Past Anesthesia/Blood Transfusion Reactions: No Reported Reaction, Motion Sickness Past Psychological History: Anxiety Smoking Status: Never smoker Past Alcohol Use History: Rare Past Drug Use History: None Reported - Past Family History Mother Additional Family Medical History / Comment(s): HAD PACEMAKER, age 86 Father Family Medical History: Dementia General Exam - General Exam Comments Initial Comments: GENERAL: Patient is well-developed and well-nourished. Patient is nontoxic and well- hydrated and is in no acute distress. ENT: Neck is soft and supple. No significant lymphadenopathy is noted. Oropharynx is clear. Moist mucous membranes. Neck has full range of motion without eliciting any pain. EYES: The sclera were anicteric and conjunctiva were pink and moist. Extraocular movements were intact and pupils were equal round and reactive to light. Eyelids were unremarkable. PULMONARY: Unlabored respirations. Good breath sounds bilaterally. No audible rales rhonchi or wheezing was noted. CARDIOVASCULAR: Patient's heart rate is 56. ABDOMEN: Soft and nontender with normal bowel sounds. SKIN: Skin is clear with no lesions or rashes and otherwise unremarkable. NEUROLOGIC: Patient is alert and oriented x3. Cranial nerves II through XII are grossly intact. Motor and sensory are also intact. Normal speech, volume and content. Symmetrical smile. MUSCULOSKELETAL: Normal extremities with adequate strength and full range of motion. LYMPHATICS: No significant lymphadenopathy is noted PSYCHIATRIC: Normal psychiatric evaluation. Limitations: no limitations Course Vital Signs 01/22/19 01/22/19 01/22/19 16:05 16:30 17:00 Temperature 98.3 F Pulse Rate 54 L 51 L 52 L Respiratory 16 17 18 Rate Blood Pressure 114/77 104/53 101/79 O2 Sat by Pulse 96 100 100 Oximetry 01/22/19 17:30 Temperature Pulse Rate 51 L Respiratory 17 Rate Blood Pressure 102/69 O2 Sat by Pulse 98 Oximetry Medical Decision Making - Medical Decision Making EKG shows sinus bradycardia 53 bpm ID interval is 188 QRSs 108 QT interval is 460 QTC is 431. Patient's EKG is unchanged from previous EKG. I reviewed all the results from the other facility. I spoke with Dr. Gaona he wanted the patient admitted and consulted cardiology Disposition Clinical Impression: Chest pain, Bradycardia, Syncope Disposition: ADMITTED IP TO THIS HOSP Referrals: Hawk Gaona MD [Primary Care Provider] - 1-2 days Time of Disposition: 18:17
[2019-01-22] MEDS ORDERED: NITROGLYCERIN SL TABS 0.4 MG TAB SUBLINGUAL PRN (18:17)
[2019-01-22 19:59] LABS: Glucose,Whole Blood 171 mg/dL (75-99)
[2019-01-23 06:29] LABS: Glucose,Whole Blood 118 mg/dL (75-99)
[2019-01-23 06:54] LABS: Cholesterol 159 mg/dL (<200); HDL Cholesterol 52 mg/dL (40-60); LDL Cholesterol,Calculated 67 mg/dL (0-99); Triglycerides 202 mg/dL (<150)
[2019-01-23] MEDS: NITROGLYCERIN OINT 1 INCH/GM PACKET TOPICAL SCH (08:25)
[2019-01-23] MEDS: MAGNESIUM OXIDE 400 MG TAB PO SCH (08:26)
[2019-01-23] MEDS: amLODIPine 5 MG TAB PO SCH (08:26)
[2019-01-23] MEDS: ATORVASTATIN 20 MG TAB PO SCH (08:26)
[2019-01-23] MEDS: CITALOPRAM HYDROBROMIDE 20 MG TAB PO SCH (08:27)
[2019-01-23] MEDS: MULTIVITAMINS, THERA 1 EACH TAB PO SCH (08:27)
[2019-01-23] MEDS: DICYCLOMINE 10 MG CAP PO SCH (08:27)
[2019-01-23] MEDS: metFORMIN 500 MG TAB PO SCH (08:29)
[2019-01-23 08:32] LABS: Basophils # (A) 0.1 k/uL (0-0.2); Basophils % (A) 1 %; Eosinophils # (A) 0.4 k/uL (0-0.7); Eosinophils % (A) 5 %; HGB 12.4 gm/dL (13.0-17.5); Lymphocytes # (A) 2.3 k/uL (1.0-4.8); Lymphocytes % (A) 24 %; MCH 31.9 pg (25.0-35.0); MCHC 33.6 g/dL (31.0-37.0); MCV 94.9 fL (80.0-100.0); Mean Platelet Volume 9.1; Monocytes # (A) 0.6 k/uL (0-1.0); Monocytes % (A) 6 %; Neutrophils # (A) 5.9 k/uL (1.3-7.7); Neutrophils % (A) 63 %; Platelet Count 192 k/uL (150-450); RDW 14.8 % (11.5-15.5); WBC 9.4 k/uL (3.8-10.6)
[2019-01-23 08:45] LABS: Albumin 3.7 g/dL (3.5-5.0); Calcium 9.1 mg/dL (8.4-10.2); Potassium 4.8 mmol/L (3.5-5.1); Total Bilirubin 0.5 mg/dL (0.2-1.3); Total Protein 6.3 g/dL (6.3-8.2)
--- NOTE | 2019-01-23 08:53 | P.CRDCN ---
History of Present Illness Consult date: 01/23/19 Requesting physician: Hawk Gaona Consult reason: sycope Chief complaint: Dizziness and near syncope History of present illness: This is a pleasant 68-year-old gentleman who follows regularly with Dr. VC Jaramillo in the office. He has a past medical history significant for diabetes, hypertension, hyperlipidemia, GERD, sleep apnea, multiple episodes of dizziness and near syncope, he underwent a cardiac catheterization in January of last year that revealed normal coronary arteries. Patient also has history of wearing an event monitor, apparently the event monitor tracing did reveal some significant bradycardia and patient had medication adjustments made at that time. He presents to the hospital on this occasion again with symptoms of dizziness and near syncope. The week prior to this episode, patient had sinus and upper respiratory infection with some mild dizziness, he was treated with cold medication along with initiation of antibiotics. He also states that he's been quite fatigued over the past 2 weeks. Prior to admission here, the patient had been out shopping, he states that he became very dizzy, diaphoretic, and felt as though he may pass out. He sat down in the chair, and did not completely lose consciousness. The patient states he never has completely lost consciousness but has had multiple episodes of the similar symptoms in the past. He initially presented to [facility] and transferred here. Patient's blood pressure [place] was 83/59 and his heart rate 50, he was given atropine with no change in heart rate, patient was also given some IV fluids heart rate persisted in the 50s, blood pressure came up to 108/59. His initial EKG [facility] at [facility] showed a normal sinus rhythm with a heart rate of 60, no acute changes noted. Lab data reviewed at [place], BNP level CXI. Troponin 0.012. White blood cell count 12.0, hemoglobin 12.7, platelet count 182. Sodium 1:30, potassium 4.1, BUN 11 and creatinine 1.4. Magnesium 1.9, phosphorus stress 2.7 His EKG on presentation here showed a sinus bradycardia with biphasic ST-T waves noted in the anterior leads. On review of prior EKGs, patient has had sinus bradycardia, these ST-T wave changes appear to be new. His blood pressure on arrival here 114/70 with a heart rate of 50, 96% on room air. Blood pressure this morning 146/70 with a heart rate of 60, 97% on 2 L of oxygen. White blood cell count 9.4, hemoglobin 12.4, platelet count 192. Cholesterol 159, triglycerides 202, LDL 67 and HDL 52. At the time of my examination this morning, patient feels somewhat tired, denies any dizziness. Past Medical History Past Medical History: Chest Pain / Angina, Diabetes Mellitus, GERD/Reflux, Hyperlipidemia, Hypertension, Sleep Apnea/CPAP/BIPAP, Syncope Additional Past Medical History / Comment(s): IDDM, ERIKA cannot tolerate CPAP, varicose veins, hiatal hernia, constipation occas bleeding with stools, hemorrhoids, hyperkalemia History of Any Multi-Drug Resistant Organisms: MRSA Date of last positivie culture/infection: November 2017 MDRO Source:: Abdomen at [facility] per Dr. Verdin Past Surgical History: Back Surgery, Cholecystectomy, Heart Catheterization, Hernia Repair Additional Past Surgical History / Comment(s): arthroscopy right knee. bilateral cataracts,jeancarlos inguinal hernia repair, alban funloplasty Past Anesthesia/Blood Transfusion Reactions: No Reported Reaction, Motion Sickness Past Psychological History: Anxiety Additional Psychological History / Comment(s): Pt resides with his spouse. He is independent. has a glucometer and bp machine Smoking Status: Never smoker Past Alcohol Use History: Rare Past Drug Use History: None Reported - Past Family History Mother Additional Family Medical History / Comment(s): HAD PACEMAKER, age 86 Father Family Medical History: Dementia Medications and Allergies Home Medications Medication Instructions Recorded Confirmed Type busPIRone HCl [Buspar] 10 mg PO BID 05/01/14 01/22/19 History Citalopram Hydrobromide [CeleXA] 20 mg PO DAILY 09/13/17 01/22/19 History Lisinopril [Prinivil] 20 mg PO DAILY 09/13/17 01/22/19 History Magnesium Oxide [Mag-Ox] 400 mg PO DAILY 09/13/17 01/22/19 History Multivitamins, Thera [Multivitamin 1 tab PO DAILY 09/13/17 01/22/19 History (formulary)] Ranitidine HCl [Zantac] 150 mg PO BID 09/13/17 01/22/19 History metFORMIN HCL [Glucophage] 500 mg PO DAILY 09/13/17 01/22/19 History Tamsulosin HCl [Flomax] 0.4 mg PO DAILY 12/19/17 01/22/19 History Atorvastatin [Lipitor] 20 mg PO DAILY #30 tab 12/20/17 01/22/19 Rx Nitroglycerin Sl Tabs [Nitrostat] 0.4 mg SUBLINGUAL Q5M PRN tab 12/29/17 01/22/19 Rx amLODIPine [Norvasc] 5 mg PO DAILY tab 12/29/17 01/22/19 Rx Amoxic-Pot Clav 875-125Mg 1 tab PO Q12HR 01/22/19 01/22/19 History [Augmentin 875-125] Dicyclomine [Bentyl] 10 mg PO DAILY 01/22/19 01/22/19 History HYDROcodone/APAP 5-325MG [[place] 1 tab PO BID 01/22/19 01/22/19 History 5-325] Lidocaine Viscous 2% [Xylocaine 5 ml MUCOUS MEM Q3H PRN 01/22/19 01/22/19 History Viscous] Metoprolol Succinate (ER) [Toprol 25 mg PO DAILY 01/22/19 01/22/19 History Xl] Allergies Allergy/AdvReac Type Severity Reaction Status Date / Time dipyridamole AdvReac Nausea & Verified 01/22/19 16:44 [From Persantine] Vomiting Iodinated Contrast- Oral and AdvReac Nausea & Verified 01/22/19 16:44 IV Dye Vomiting [Iodinated Contrast Media - IV Dye] morphine AdvReac Nausea & Verified 01/22/19 16:44 Vomiting Physical Exam Vitals: Vital Signs Temp Pulse Pulse Resp BP BP Pulse Ox 01/23/19 07:43 98.1 F 61 16 146/76 97 01/23/19 04:00 97.4 F L 50 L 18 133/75 98 01/22/19 23:36 97.6 F 48 L 18 138/70 98 01/22/19 20:00 97.1 F L 54 L 17 149/72 99 01/22/19 19:13 99 01/22/19 18:49 97.1 F L 54 L 17 148/80 99 01/22/19 18:30 54 L 14 109/75 99 01/22/19 18:00 58 L 14 112/67 95 01/22/19 17:30 51 L 17 102/69 98 01/22/19 17:00 52 L 18 101/79 100 01/22/19 16:30 51 L 17 104/53 100 01/22/19 16:05 98.3 F 54 L 16 114/77 96 Intake and Output 01/22/19 01/23/19 01/23/19 22:59 06:59 14:59 Intake Total 222 Output Total 2049 Balance -2049 Intake: Oral 222 Output: Urine 2049 Other: Voiding Method Urinal Urinal # Voids 1 Weight 90.718 kg 88.9 kg PHYSICAL EXAMINATION: GENERAL: 68-year-old gentleman in no acute distress at the time of my examination HEENT: Head is atraumatic, normocephalic. Pupils equal, round. Sclera anicteric. Conjunctiva are clear. Mucous membranes of the mouth are moist. Neck is supple. There is no elevated jugular venous pressure. No carotid bruit is heard. HEART EXAMINATION: Heart S1, S2 normal. No murmur or gallop heard. CHEST EXAMINATION: Lungs are clear to auscultation and precussion. No chest wall tenderness is noted on palpation or with deep breathing. ABDOMEN: Soft, nontender. Bowel sounds are heard. No organomegaly noted. EXTREMITIES: 2+ peripheral pulses with no evidence of peripheral edema and no calf tenderness noted. NEUROLOGIC patient is awake, alert and oriented 3 . . Results 01/23/19 06:19 Cardiac Enzymes 01/23/19 01/23/19 Range/Units 00:03 06:19 Troponin I <0.012 <0.012 (0.000-0.034) ng/mL Lipids 01/23/19 Range/Units 06:19 Triglycerides 202 H (<150) mg/dL Cholesterol 159 (<200) mg/dL HDL Cholesterol 52 (40-60) mg/dL CBC 01/23/19 Range/Units 06:19 WBC 9.4 (3.8-10.6) k/uL RBC 3.90 L (4.30-5.90) m/uL Hgb 12.4 L (13.0-17.5) gm/dL Hct 37.0 L (39.0-53.0) % Plt Count 192 (150-450) k/uL Current Medications Generic Name Dose Route Start Last Admin Trade Name Freq PRN Reason Stop Dose Admin Hydrocodone Bitart/Acetaminophen 1 each 01/23/19 09:00 [place] 5-325 PO BID PRN Moderate Pain Amlodipine Besylate 5 mg 01/23/19 09:00 Norvasc PO DAILY [facility] Aspirin 325 mg 01/23/19 09:00 Aspirin PO DAILY [facility] Atorvastatin Calcium 20 mg 01/23/19 09:00 Lipitor PO DAILY [facility] Citalopram Hydrobromide 20 mg 01/23/19 09:00 Celexa PO DAILY [facility] Dicyclomine HCl 10 mg 01/23/19 09:00 Bentyl PO DAILY [facility] Magnesium Oxide 400 mg 01/23/19 09:00 Mag-Ox PO DAILY [facility] Metformin HCl 500 mg 01/23/19 09:00 Glucophage PO W/BRKFST [facility] Multivitamins 1 each 01/23/19 09:00 Theragran PO DAILY [facility] Nitroglycerin 1 inch 01/22/19 19:00 01/23/19 08:25 Nitro-Bid Oint TOPICAL Not Given Q6HR [facility] Nitroglycerin 0.4 mg 01/22/19 18:17 Nitrostat SUBLINGUAL Q5M PRN Chest Pain Intake and Output 01/22/19 01/23/19 01/23/19 22:59 06:59 14:59 Intake Total 222 Output Total 2049 Balance 222 -2049 Intake: Oral 222 Output: Urine 2049 Other: Voiding Method Urinal Urinal # Voids 1 Weight 90.718 kg 88.9 kg 01/23/19 06:19 EKG Interpretations (text) EKG shows a sinus bradycardia with biphasic ST T waves in the anterior leads. Assessment and Plan Plan: Assessment and plan #1 symptoms of dizziness and diaphoresis with near syncope. Could be secondary to bradycardia, could also be secondary to orthostatic hypotension. #2 recent upper respiratory infection, with initiation of recent antibiotics #3 diabetes #4 hypertension #5 hyperlipidemia #6 obstructive sleep apnea, patient uses a CPAP #7 atypical chest pain, troponins negative 3. Patient underwent a cardiac catheterization in January of last year which revealed normal coronary arteries EKG shows a sinus bradycardia with ST-T wave changes noted in the anterior leads. #8 documented sinus bradycardia Plan We will obtain a TSH level, repeat EKG, obtain echocardiogram with Doppler study. Obtain 30 day event monitor from the office, discontinue beta alma. Also recommend the patient undergo a tilt table test. Check orthostatic heart rate and blood pressure every shift. Further recommendations to follow. DNP note has been reviewed, I agree with a documented findings and plan of care. Patient was seen and examined.
[2019-01-23] MEDS ORDERED: ASPIRIN 325 MG TAB PO SCH (09:00)
[2019-01-23] MEDS: SODIUM CHLORIDE 0.9% 1,000 ML IV SCH (10:15)
--- NOTE | 2019-01-23 10:19 | ECHOF ---
Referral Reason:syncope MEASUREMENTS -------- HEIGHT: 147.3 cm WEIGHT: 88.5 kg BP: RVIDd: 3.0 cm (< 3.3) IVSd: 1.7 cm (0.6 - 1.1) LVIDd: 3.4 cm (3.9 - 5.3) LVPWd: 1.6 cm (0.6 - 1.1) IVSs: 2.0 cm LVIDs: 2.0 cm LVPWs: 2.1 cm LAESV Index (A-L): 25.73 ml/m Ao Diam: 3.0 cm (2.0 - 3.7) AV Cusp: 2.0 cm (1.5 - 2.6) LA Diam: 3.4 cm (2.7 - 3.8) MV EXCURSION: 13.189 mm (> 18.000) MV EF SLOPE: 50 mm/s (70 - 150) EPSS: 0.9 cm MV E Nicolas: 0.66 m/s MV DecT: 207 ms MV A Nicolas: 1.01 m/s MV E/A Ratio: 0.66 RAP: 5.00 mmHg RVSP: 28.15 mmHg FINDINGS -------- Sinus rhythm. This was a technically good study. The left ventricular size is normal. There is moderate concentric left ventricular hypertrophy. O verall left ventricular systolic function is normal with, an EF between 55 - 60 %. The right ventricle is normal in size. Normal LA size by volume 22+/-6 ml/m2. The right atrial size is normal. Interatrial and interventricular septum intact. Aortic valve is trileaflet and is mildly thickened. The mitral valve is normal. The mitral valve leaflets are mildly thickened. Mild mitral annular c alcification present. Mild mitral regurgitation is present. Mild tricuspid regurgitation present. Right ventricular systolic pressure is normal at < 35 mmHg. There is no pulmonic regurgitation present. The aortic root size is normal. Normal inferior vena cava with normal inspiratory collapse consistent with estimated right atrial pre ssure of 5 mmHg. There is no pericardial effusion. CONCLUSIONS -------- 1. Sinus rhythm. 2. This was a technically good study. 3. The left ventricular size is normal. 4. There is moderate concentric left ventricular hypertrophy. 5. Overall left ventricular systolic function is normal with, an EF between 55 - 60 %. 6. The right ventricle is normal in size. 7. Normal LA size by volume 22+/-6 ml/m2. 8. The right atrial size is normal. 9. Interatrial and interventricular septum intact. 10. Aortic valve is trileaflet and is mildly thickened. 11. The mitral valve is normal. 12. The mitral valve leaflets are mildly thickened. 13. Mild mitral annular calcification present. 14. Mild mitral regurgitation is present. 15. Mild tricuspid regurgitation present. 16. Right ventricular systolic pressure is normal at < 35 mmHg. 17. There is no pulmonic regurgitation present. 18. The aortic root size is normal. 19. Normal inferior vena cava with normal inspiratory collapse consistent with estimated right atrial pressure of 5 mmHg. 20. There is no pericardial effusion. DELIMER: Rema Marsh RDCS
[2019-01-23] MEDS ORDERED: IV FLUID CONTINUATION 350 ML IV ONE (10:52)
[2019-01-23 12:16] LABS: Glucose,Whole Blood 132 mg/dL (75-99)
--- NOTE | 2019-01-23 13:35 | XR ---
EXAMINATION TYPE: XR chest 2V DATE OF EXAM: 01/23/2019 COMPARISON: Chest x-ray January 10, 2018. CTA chest April 09, 2018. HISTORY: Dyspnea. TECHNIQUE: Frontal and lateral views of the chest are obtained. FINDINGS: Overlying EKG leads are redemonstrated. There is no focal air space opacity, pleural effusi on, or pneumothorax seen. The cardiac silhouette size is within normal limits. The osseous structu res are intact. IMPRESSION: No acute cardiopulmonary process. No significant change from prior.
--- NOTE | 2019-01-23 14:08 | P.PCN ---
Preoperative Diagnosis: Procedure Tilt table test Twelve-lead ECG Indication for the procedure: Syncope Twelve-lead ECG showed sinus mechanism with left anterior fascicular block with normal MO, narrow QRS, normal ST segments, no delta waves, no epsilon waves, normal QT interval Baseline heart rate was 60, Baseline blood pressure 142/83 Patient was tilted upright at a 70 degree angle per protocol No significant changes in heart rate or blood pressure throughout procedure, patient denied symptoms At the end of the procedure the patient was laid supine Impression Normal heart rate and blood pressure response upright tilting ECG shows left anterior fascicular block
[2019-01-23 14:31] VITALS: BMI 29.7
[2019-01-23] MEDS: HYDROcodone/APAP 5-325MG 1 EACH TAB PO PRN (14:34)
--- NOTE | 2019-01-23 15:57 | P.HPIM ---
History of Present Illness H&P Date: 01/23/19 This is a 68-year-old gentleman with history of chest pain, angina, heart catheterization in January 2018 reported as normal coronaries, diabetes mellitus, gastroesophageal reflux disease, hyperlipidemia, hypertension, obstructive sleep apnea, dizziness/syncope transferred from [facility] to the ER with complaints of dizziness, near syncope. Reports Recently treated for sinus infection outpatient and has been feeling quite fatigued, persistent nasal congestion, burning in the eyes,felt febrile, nausea. On Tuesday,patient was eating biscuits and gravy at [employer] , felt dizzy, stated that he looked pale, resolved after sitting in the car. Proceeded to go shopping, became diaphoretic, dizzy, felt as if he might pass out and sat down. Denies losing consciousness, incontinence of urine or bowel. Presents to the ER, hypotensive with systolic blood pressures in the low 80s, heart rates in the 50s, received atropine, IV fluids, blood pressure improved, heart rate unchanged and patient was transferred to [facility]. Patient also had chest pain earlier subsided, [place] EKG reporting sinus rhythm, troponin 0.012X2, WBC 12 hemoglobin 12.7, platelets 182. Sodium 1:30, potassium 4.1, magnesium 1.9, BUN 11 and creatinine 1.4.EKG in our ER reported sinus bradycardia, ST-T wave abnormalities in the anterior leads. Triglycerides 202. Vital signs stable on admission, maintaining O2 sats in the high 90s on 2 L nasal cannula. Afebrile, white count has decreased ,currently 9.4 with dizziness subsided. Denies chest pain, palpitations or shortness of breath. Cardiology consulted. Review of Systems ROS Statement: Those systems with pertinent positive or pertinent negative responses have been documented in the HPI. ROS Other: All systems not noted in ROS Statement are negative. Past Medical History Past Medical History: Chest Pain / Angina, Diabetes Mellitus, GERD/Reflux, Hyperlipidemia, Hypertension, Sleep Apnea/CPAP/BIPAP, Syncope Additional Past Medical History / Comment(s): IDDM, ERIKA cannot tolerate CPAP, varicose veins, hiatal hernia, constipation occas bleeding with stools, hemorrhoids, hyperkalemia History of Any Multi-Drug Resistant Organisms: MRSA Date of last positivie culture/infection: November 2017 MDRO Source:: Abdomen at [facility] per Dr. Verdin Past Surgical History: Back Surgery, Cholecystectomy, Heart Catheterization, Hernia Repair Additional Past Surgical History / Comment(s): arthroscopy right knee. bilateral cataracts,jeancarlos inguinal hernia repair, alban funloplasty Past Anesthesia/Blood Transfusion Reactions: No Reported Reaction, Motion Sickness Past Psychological History: Anxiety Additional Psychological History / Comment(s): Pt resides with his spouse. He is independent. has a glucometer and bp machine Smoking Status: Never smoker Past Alcohol Use History: Rare Past Drug Use History: None Reported - Past Family History Mother Additional Family Medical History / Comment(s): HAD PACEMAKER, age 86 Father Family Medical History: Dementia Medications and Allergies Home Medications Medication Instructions Recorded Confirmed Type busPIRone HCl [Buspar] 10 mg PO BID 05/01/14 01/22/19 History Citalopram Hydrobromide [CeleXA] 20 mg PO DAILY 09/13/17 01/22/19 History Lisinopril [Prinivil] 20 mg PO DAILY 09/13/17 01/22/19 History Magnesium Oxide [Mag-Ox] 400 mg PO DAILY 09/13/17 01/22/19 History Multivitamins, Thera [Multivitamin 1 tab PO DAILY 09/13/17 01/22/19 History (formulary)] Ranitidine HCl [Zantac] 150 mg PO BID 09/13/17 01/22/19 History metFORMIN HCL [Glucophage] 500 mg PO DAILY 09/13/17 01/22/19 History Tamsulosin HCl [Flomax] 0.4 mg PO DAILY 12/19/17 01/22/19 History Atorvastatin [Lipitor] 20 mg PO DAILY #30 tab 12/20/17 01/22/19 Rx Nitroglycerin Sl Tabs [Nitrostat] 0.4 mg SUBLINGUAL Q5M PRN tab 12/29/17 01/22/19 Rx amLODIPine [Norvasc] 5 mg PO DAILY tab 12/29/17 01/22/19 Rx Amoxic-Pot Clav 875-125Mg 1 tab PO Q12HR 01/22/19 01/22/19 History [Augmentin 875-125] Dicyclomine [Bentyl] 10 mg PO DAILY 01/22/19 01/22/19 History HYDROcodone/APAP 5-325MG [Hamilton 1 tab PO BID 01/22/19 01/22/19 History 5-325] Lidocaine Viscous 2% [Xylocaine 5 ml MUCOUS MEM Q3H PRN 01/22/19 01/22/19 History Viscous] Metoprolol Succinate (ER) [Toprol 25 mg PO DAILY 01/22/19 01/22/19 History Xl] Allergies Allergy/AdvReac Type Severity Reaction Status Date / Time dipyridamole AdvReac Nausea & Verified 01/22/19 16:44 [From Persantine] Vomiting Iodinated Contrast- Oral and AdvReac Nausea & Verified 01/22/19 16:44 IV Dye Vomiting [Iodinated Contrast Media - IV Dye] morphine AdvReac Nausea & Verified 01/22/19 16:44 Vomiting Physical Exam Vitals: Vital Signs Temp Pulse Pulse Resp BP BP Pulse Ox 01/23/19 07:43 98.1 F 61 16 146/76 97 01/23/19 04:00 97.4 F L 50 L 18 133/75 98 01/22/19 23:36 97.6 F 48 L 18 138/70 98 01/22/19 20:00 97.1 F L 54 L 17 149/72 99 01/22/19 19:13 99 01/22/19 18:49 97.1 F L 54 L 17 148/80 99 01/22/19 18:30 54 L 14 109/75 99 01/22/19 18:00 58 L 14 112/67 95 01/22/19 17:30 51 L 17 102/69 98 01/22/19 17:00 52 L 18 101/79 100 01/22/19 16:30 51 L 17 104/53 100 01/22/19 16:05 98.3 F 54 L 16 114/77 96 Intake and Output 01/22/19 01/23/19 01/23/19 22:59 06:59 14:59 Intake Total 222 Output Total 2049 Balance -2049 Intake: Oral 222 Output: Urine 2049 Other: Voiding Method Urinal Urinal # Voids 1 Weight 90.718 kg 88.9 kg PHYSICAL EXAM: VITAL SIGNS: As above GENERAL: Sitting up in bed, no acute distress HEENT: Conjunctivae normal. eyes normal. NECK: No JVD. No thyroid enlargement. No LNs CARDIOVASCULAR: S1, S2 regular. No murmur. Bradycardic RESPIRATION: Breath sounds diminished in the bases. No rhonchi or crackles. No bronchial breathing. Nasal congestion. ABDOMEN: Soft, nontender . No guarding. no masses palpable. No ascites, No hepatosplenomegaly.Bowel sounds heard. LEGS: No edema. no swelling PSYCHIATRY: Alert and oriented X3, mood and affect normal. NERVOUS SYSTEM: Cranial N 2-12 grossly normal. Moves all 4 limbs. Diffuse weak ness, No focal deficits. Strength and sensation grossly intact.. No focal deficits Skin: no lesions, no rash Lymphatic system. No LN neck axilla or groin. Results CBC & Chem 7: 01/23/19 06:19 01/23/19 06:19 Labs: Abnormal Lab Results - Last 24 Hours (Table) 01/22/19 01/23/19 01/23/19 Range/Units 19:58 06:19 06:19 RBC 3.90 L (4.30-5.90) m/uL Hgb 12.4 L (13.0-17.5) gm/dL Hct 37.0 L (39.0-53.0) % Sodium (137-145) mmol/L Glucose (74-99) mg/dL POC Glucose (mg/dL) 171 H (75-99) mg/dL ALT (21-72) U/L Triglycerides 202 H (<150) mg/dL 01/23/19 01/23/19 Range/Units 06:19 06:28 RBC (4.30-5.90) m/uL Hgb (13.0-17.5) gm/dL Hct (39.0-53.0) % Sodium 135 L (137-145) mmol/L Glucose 117 H (74-99) mg/dL POC Glucose (mg/dL) 118 H (75-99) mg/dL ALT 20 L (21-72) U/L Triglycerides (<150) mg/dL Thrombosis Risk Factor Assmnt - Choose All That Apply Any of the Below Risk Factors Present?: Yes Each Factor Represents 1 point: Obesity (BMI >25) Each Risk Factor Represents 2 Points: Age 61-74 years Thrombosis Risk Factor Assessment Total Risk Factor Score: 3 Thrombosis Risk Factor Assessment Level: Moderate Risk Assessment and Plan Assessment: -Chest pain, troponins negative 3, EKG with anterior lead changes, cardiac catheterization January 2018,reported normal coronaries, cardiology following -Dizziness, near-syncope, bradycardia -Recent upper respiratory,sinus infection, possibly failed outpatient treatment, continues to have nasal congestion, burning eyes, headache -History of angina, chest pain -Gastroesophageal reflux disease -Hyperlipidemia -Hypertension -Obstructive sleep apnea -Obesity, BMI 29.8 -History of syncope -Diabetes mellitus -Anxiety Plan: Continue on current medication regime ,monitoring and symptomatic treatment. Zosyn added to med regime for ongoing symptoms of upper respiratory/sinus infection. Orthostatic vitals ordered .Echo pending. Evaluated by cardiology and tilt table has been ordered. Home meds have been reviewed and resumed. GI and DVT prophylaxis in place. Further recommendations to follow. The impression and plan of care has been dictated as directed. : I performed a history and examination of this patient, discussed the same with the dictator. I agree with the dictator's note ,documented as a scribe. Any additional findings or plans will be noted. Time taken:35 min.
[2019-01-23] MEDS ORDERED: ONDANSETRON 4 MG/2 ML VIAL IVP PRN (15:58)
[2019-01-23] MEDS: PIPERACILLIN-TAZOBACTAM 3.375 GM in SODIUM CHLORIDE 0.9% 100 ML IVPB SCH ×2 (16:12→23:19)
[2019-01-23] MEDS: PANTOPRAZOLE 40 MG/10 ML VIAL IVP SCH (16:17)
[2019-01-23 17:11] LABS: Glucose,Whole Blood 198 mg/dL (75-99)
[2019-01-23] MEDS: INSULIN ASPART (NovoLOG) 100 UNIT/ML VIAL SQ SCH ×2 (18:14→23:20)
[2019-01-23] MEDS: LORATADINE 10 MG TAB PO SCH (20:37)
[2019-01-23] MEDS ORDERED: AMOXIC-POT CLAV 875-125MG 1 EACH TAB PO SCH (21:00)
[2019-01-23 21:08] LABS: Glucose,Whole Blood 170 mg/dL (75-99)
[2019-01-24 06:20] LABS: Basophils % (A) 0 %; Eosinophils # (A) 0.5 k/uL (0-0.7); Eosinophils % (A) 6 %; HCT 36.2 % (39.0-53.0); HGB 12.1 gm/dL (13.0-17.5); Lymphocytes # (A) 2.6 k/uL (1.0-4.8); Lymphocytes % (A) 28 %; MCH 31.6 pg (25.0-35.0); MCHC 33.4 g/dL (31.0-37.0); MCV 94.5 fL (80.0-100.0); Mean Platelet Volume 8.7; Monocytes # (A) 0.5 k/uL (0-1.0); Monocytes % (A) 6 %; Neutrophils # (A) 5.3 k/uL (1.3-7.7); Neutrophils % (A) 58 %; Platelet Count 171 k/uL (150-450); RBC 3.83 m/uL (4.30-5.90); RDW 13.3 % (11.5-15.5); WBC 9.1 k/uL (3.8-10.6)
[2019-01-24 06:33] LABS: Calcium 9.2 mg/dL (8.4-10.2); Potassium 4.7 mmol/L (3.5-5.1)
[2019-01-24 06:33] LABS: Glucose,Whole Blood 125 mg/dL (75-99)
[2019-01-24] MEDS: INSULIN ASPART (NovoLOG) 100 UNIT/ML VIAL SQ SCH ×4 (06:34→21:06)
[2019-01-24] MEDS: metFORMIN 500 MG TAB PO SCH (06:38)
[2019-01-24] MEDS: PIPERACILLIN-TAZOBACTAM 3.375 GM in SODIUM CHLORIDE 0.9% 100 ML IVPB SCH ×3 (09:00→23:31)
[2019-01-24] MEDS: CITALOPRAM HYDROBROMIDE 20 MG TAB PO SCH (09:05)
[2019-01-24] MEDS: MULTIVITAMINS, THERA 1 EACH TAB PO SCH (09:05)
[2019-01-24] MEDS: MAGNESIUM OXIDE 400 MG TAB PO SCH (09:05)
[2019-01-24] MEDS: ATORVASTATIN 20 MG TAB PO SCH (09:05)
[2019-01-24] MEDS: DICYCLOMINE 10 MG CAP PO SCH (09:06)
[2019-01-24] MEDS: amLODIPine 5 MG TAB PO SCH (09:06)
[2019-01-24] MEDS: PANTOPRAZOLE 40 MG/10 ML VIAL IVP SCH (11:07)
[2019-01-24] MEDS: SODIUM CHLORIDE 0.9% 1,000 ML IV SCH (11:09)
--- NOTE | 2019-01-24 11:36 | P.PN ---
Subjective Progress Note Date: 01/24/19 This is a pleasant 68-year-old gentleman who follows regularly with Dr. VC Jaramillo in the office. He has a past medical history significant for diabetes, hypertension, hyperlipidemia, GERD, sleep apnea, multiple episodes of dizziness and near syncope, he underwent a cardiac catheterization in January of last year that revealed normal coronary arteries. Patient also has history of wearing an event monitor, apparently the event monitor tracing did reveal some significant bradycardia and patient had medication adjustments made at that time. He presents to the hospital on this occasion again with symptoms of dizziness and near syncope. The week prior to this episode, patient had sinus and upper respiratory infection with some mild dizziness, he was treated with cold medication along with initiation of antibiotics. He also states that he's been quite fatigued over the past 2 weeks. Prior to admission here, the patient had been out shopping, he states that he became very dizzy, diaphoretic, and felt as though he may pass out. He sat down in the chair, and did not completely lose consciousness. The patient states he never has completely lost consciousness but has had multiple episodes of the similar symptoms in the past. He initially presented to [facility] and transferred here. Patient's blood pressure [place] was 83/59 and his heart rate 50, he was given atropine with no change in heart rate, patient was also given some IV fluids heart rate persisted in the 50s, blood pressure came up to 108/59. His initial EKG performed at [facility] showed a normal sinus rhythm with a heart rate of 60, no acute changes noted. Lab data reviewed at [facility], BNP level CXI. Troponin 0.012. White blood cell count 12.0, hemoglobin 12.7, platelet count 182. Sodium 1:30, potassium 4.1, BUN 11 and creatinine 1.4. Magnesium 1.9, phosphorus stress 2.7 His EKG on presentation here showed a sinus bradycardia with biphasic ST-T waves noted in the anterior leads. On review of prior EKGs, patient has had sinus bradycardia, these ST-T wave changes appear to be new. His blood pressure on arrival here 114/70 with a heart rate of 50, 96% on room air. Blood pressure this morning 146/70 with a heart rate of 60, 97% on 2 L of oxygen. White blood cell count 9.4, hemoglobin 12.4, platelet count 192. Cholesterol 159, triglycerides 202, LDL 67 and HDL 52. At the time of my examination this morning, patient feels somewhat tired, denies any dizziness. 01/24/2019 Patient was seen and examined this morning, had mild episode of dizziness walking to the bathroom earlier this morning, complaining of mild headache. His heart rate today is in the 60 range, orthostatics overall were negative, mild drop from 149-129, and his tilt table test was negative. Objective - Vital Signs Vital signs: Vital Signs Temp 98.0 F 01/24/19 04:00 Pulse 60 01/24/19 04:00 Resp 18 01/24/19 04:00 BP 124/72 01/24/19 04:00 Pulse Ox 98 01/24/19 04:00 Intake & Output 01/23/19 01/24/19 01/24/19 18:59 06:59 18:59 Intake Total 50 240 Output Total 1400 1050 Balance -1350 -1050 240 Weight 88.9 kg 88.5 kg Intake: IV 50 Oral 240 Output: Urine 1400 1050 Other: Voiding Method Urinal # Voids 4 - Exam PHYSICAL EXAMINATION: GENERAL: 68-year-old gentleman in no acute distress at the time of my examination HEENT: Head is atraumatic, normocephalic. Pupils equal, round. Sclera anicteric. Conjunctiva are clear. Mucous membranes of the mouth are moist. Neck is supple. There is no elevated jugular venous pressure. No carotid bruit is heard. HEART EXAMINATION: Heart S1, S2 normal. No murmur or gallop heard. CHEST EXAMINATION: Lungs are clear to auscultation and precussion. No chest wall tenderness is noted on palpation or with deep breathing. ABDOMEN: Soft, nontender. Bowel sounds are heard. No organomegaly noted. EXTREMITIES: 2+ peripheral pulses with no evidence of peripheral edema and no calf tenderness noted. NEUROLOGIC patient is awake, alert and oriented 3 . - Labs CBC & Chem 7: 01/24/19 05:58 01/24/19 05:58 Labs: Abnormal Lab Results - Last 24 Hours (Table) 01/23/19 01/23/19 01/23/19 Range/Units 12:11 17:02 21:06 RBC (4.30-5.90) m/uL Hgb (13.0-17.5) gm/dL Hct (39.0-53.0) % Sodium (137-145) mmol/L Glucose (74-99) mg/dL POC Glucose (mg/dL) 132 H 198 H 170 H (75-99) mg/dL 01/24/19 01/24/19 01/24/19 Range/Units 05:58 05:58 06:31 RBC 3.83 L (4.30-5.90) m/uL Hgb 12.1 L (13.0-17.5) gm/dL Hct 36.2 L (39.0-53.0) % Sodium 135 L (137-145) mmol/L Glucose 113 H (74-99) mg/dL POC Glucose (mg/dL) 125 H (75-99) mg/dL Assessment and Plan Plan: Assessment and plan #1 symptoms of dizziness and diaphoresis with near syncope. Could be secondary to bradycardia, could also be secondary to orthostatic hypotension. #2 recent upper respiratory infection, with initiation of recent antibiotics #3 diabetes #4 hypertension #5 hyperlipidemia #6 obstructive sleep apnea, patient uses a CPAP #7 atypical chest pain, troponins negative 3. Patient underwent a cardiac catheterization in January of last year which revealed normal coronary arteries EKG shows a sinus bradycardia with ST-T wave changes noted in the anterior leads. #8 documented sinus bradycardia Plan TSH level was normal, echo revealed normal left ventricular systolic function, tilt table negative, no significant orthostatic hypotension. From cardiology's perspective, we recommend patient to follow-up in the office with Dr. VC Jaramillo. Perhaps be considered for a loop recorder. DNP note has been reviewed, I agree with a documented findings and plan of care. Patient was seen and examined.
[2019-01-24 12:12] LABS: Glucose,Whole Blood 166 mg/dL (75-99)
--- NOTE | 2019-01-24 13:01 | CT ---
EXAMINATION TYPE: CT brain wo con DATE OF EXAM: 01/24/2019 COMPARISON: 04/09/2018 HISTORY: headache CT DLP: 1099.[address] of the brain was performed. The ventricles, basal cisterns and sulci overlying the cerebral convexities demonstrate mild enlargem ent. There is no evidence for intracranial hemorrhage or sulcal effacement. There is decreased attenuation about the periventricular white matter and deep white matter of both c erebral hemispheres, compatible with chronic small vessel ischemia. Differential diagnosis does inclu de demyelination. No mass effects are seen.No midline shift. Osseous calvarium is intact. If symptoms persist consider MRI. IMPRESSION: 1. Age related atrophic and chronic small vessel ischemic change without acute intracranial process s een at this time.
[2019-01-24] MEDS: HYDROcodone/APAP 5-325MG 1 EACH TAB PO PRN (16:24)
[2019-01-24 16:44] LABS: Glucose,Whole Blood 126 mg/dL (75-99)
--- NOTE | 2019-01-24 17:36 | P.CNNES ---
History of Present Illness Consult date: 01/24/19 Requesting physician: Lori Haley Reason for Consult: Headache and dizziness Chief complaint: Headache and dizzy History of Present Illness: This is a 68 RH male with a h/o recurrent dizziness and near syncope. He has had bouts of documented hypotension. he has undergone extensive cardiac work-up including cardiac catheterization that was unrevealing, event monitor that did show significant bradycardia. Patient presented to the hospital this time with identical symptoms. Patient states that everything started after he had all his teeth removed a few weeks ago; he just has not felt the same since. No F/C/S. Been afebrile in-house. He also reportedly had a URI and mild dizziness for whi ch he was treated with OTC cold medicine and antibiotics. He was quite fatigued over the past couple weeks. When he went out shopping, he became very lightheaded without vertigo, diaphoretic and pre-syncopal. There was no actual loss of consciousness. No witnessed seizure-like activity or repetitive behavior suspicious for automatism. During this hospitalization, he had a tilt table test that was unrevealing. His orthostatics did show a drop in his SBP from 149-129. He also had a CT Head after c/o nagging pressure throbbing-type in the forehead area but without photosonophobia. He does get nauseated but not sure if it's directly related to his headache. Denies photopsias, associated focal nu mbness/weakness, vertigo or worsening of pain on Valsalva or upon assuming a supine position, tongue/jaw claudication or pain on mastication. Review of Systems I have performed a 14-point organ ROS with patient; pertinents are as per HPI. Past Medical History Past Medical History: Chest Pain / Angina, Diabetes Mellitus, GERD/Reflux, Hyperlipidemia, Hypertension, Sleep Apnea/CPAP/BIPAP, Syncope Additional Past Medical History / Comment(s): IDDM, ERIKA cannot tolerate CPAP, varicose veins, hiatal hernia, constipation occas bleeding with stools, hemorrhoids, hyperkalemia History of Any Multi-Drug Resistant Organisms: MRSA Date of last positivie culture/infection: November 2017 MDRO Source:: Abdomen at [facility] per Dr. Verdin Past Surgical History: Back Surgery, Cholecystectomy, Heart Catheterization, Hernia Repair Additional Past Surgical History / Comment(s): arthroscopy right knee. bilateral cataracts,jeancarlos inguinal hernia repair, alban funloplasty Past Anesthesia/Blood Transfusion Reactions: No Reported Reaction, Motion Sickness Past Psychological History: Anxiety Additional Psychological History / Comment(s): Pt resides with his spouse. He is independent. has a glucometer and bp machine Smoking Status: Never smoker Past Alcohol Use History: Rare Past Drug Use History: None Reported - Past Family History Mother Additional Family Medical History / Comment(s): HAD PACEMAKER, age 86 Father Family Medical History: Dementia Medications and Allergies Home Medications Medication Instructions Recorded Confirmed Type busPIRone HCl [Buspar] 10 mg PO BID 05/01/14 01/22/19 History Citalopram Hydrobromide [CeleXA] 20 mg PO DAILY 09/13/17 01/22/19 History Lisinopril [Prinivil] 20 mg PO DAILY 09/13/17 01/22/19 History Magnesium Oxide [Mag-Ox] 400 mg PO DAILY 09/13/17 01/22/19 History Multivitamins, Thera [Multivitamin 1 tab PO DAILY 09/13/17 01/22/19 History (formulary)] Ranitidine HCl [Zantac] 150 mg PO BID 09/13/17 01/22/19 History metFORMIN HCL [Glucophage] 500 mg PO DAILY 09/13/17 01/22/19 History Tamsulosin HCl [Flomax] 0.4 mg PO DAILY 12/19/17 01/22/19 History Atorvastatin [Lipitor] 20 mg PO DAILY #30 tab 12/20/17 01/22/19 Rx Nitroglycerin Sl Tabs [Nitrostat] 0.4 mg SUBLINGUAL Q5M PRN tab 12/29/17 01/22/19 Rx amLODIPine [Norvasc] 5 mg PO DAILY tab 12/29/17 01/22/19 Rx Amoxic-Pot Clav 875-125Mg 1 tab PO Q12HR 01/22/19 01/22/19 History [Augmentin 875-125] Dicyclomine [Bentyl] 10 mg PO DAILY 01/22/19 01/22/19 History HYDROcodone/APAP 5-325MG [Success 1 tab PO BID 01/22/19 01/22/19 History 5-325] Lidocaine Viscous 2% [Xylocaine 5 ml MUCOUS MEM Q3H PRN 01/22/19 01/22/19 History Viscous] Metoprolol Succinate (ER) [Toprol 25 mg PO DAILY 01/22/19 01/22/19 History Xl] Allergies Allergy/AdvReac Type Severity Reaction Status Date / Time dipyridamole AdvReac Nausea & Verified 01/22/19 16:44 [From Persantine] Vomiting Iodinated Contrast- Oral and AdvReac Nausea & Verified 01/22/19 16:44 IV Dye Vomiting [Iodinated Contrast Media - IV Dye] morphine AdvReac Nausea & Verified 01/22/19 16:44 Vomiting Physical Examination - Vital Signs Vital Signs: Vital Signs Temp Pulse Resp BP BP BP BP 01/24/19 15:25 98 F 70 18 146/82 01/24/19 11:40 98.0 F 63 18 159/78 01/24/19 09:00 97.3 F L 69 18 142/76 143/86 153/80 01/24/19 04:00 98.0 F 60 18 124/72 129/81 149/80 01/24/19 00:00 97.4 F L 59 L 17 142/73 01/23/19 19:36 97.7 F 62 18 143/78 Pulse Ox 01/24/19 15:25 97 01/24/19 11:40 96 01/24/19 09:00 97 01/24/19 04:00 98 01/24/19 00:00 96 01/23/19 19:36 97 Intake and Output 01/24/19 01/24/19 01/24/19 06:59 14:59 22:59 Intake Total 820 Output Total 700 300 Balance -700 520 Intake: Intake, IV Titration 340 Amount Piperacillin-Tazobactam 3 100 .375 gm In Sodium Chloride 0.9% 100 ml @ 25 mls/hr IVPB Q8HR [facility] Rx# :[id number] Sodium Chloride 0.9% 1, 240 000 ml @ 20 mls/hr IV . Q24H [facility] Rx#:[id number] Oral 480 Output: Urine 700 300 Other: Voiding Method Urinal Urinal # Voids 1 Weight 88.5 kg Gen NAD Pleasant and cooperative HEENT NCAT Sclera without icterus O/P clear Neck Supple No carotid bruit Cor RRR no m/r/g Lungs CTAB Abd Soft NTND +BS Ext Warm to touch No edema Neuro MS A+Ox4 Normal fluency Able to follow all commands CN PERRL VFF no APD EOMI no nystagmus or RADHA No facial asymmetry Masseter's symmetric Hearing intact to normal voice bilaterally Speech not dysarthric Equal elevation of palate Tongue midline Sym shrug and SCM bilaterally Motor Normal bulk/tone No pronator or tremors Strength 5/5 sym throughout Sens Intact to LT x4 No neglect or extinction Coord No dysmetria on FTN bilaterally DTRs 2+/4 sym throughout Toes downgoing bilaterally No clonus at achilles Gait Deferred Results - Laboratory Findings CBC and BMP: 01/24/19 05:58 01/24/19 05:58 Abnormal Lab Findings: Abnormal Labs 01/22/19 01/23/19 01/23/19 19:58 06:19 06:19 RBC 3.90 L Hgb 12.4 L Hct 37.0 L Sodium Glucose POC Glucose (mg/dL) 171 H ALT Triglycerides 202 H 01/23/19 01/23/19 01/23/19 06:19 06:28 12:11 RBC Hgb Hct Sodium 135 L Glucose 117 H POC Glucose (mg/dL) 118 H 132 H ALT 20 L Triglycerides 01/23/19 01/23/19 01/24/19 17:02 21:06 05:58 RBC 3.83 L Hgb 12.1 L Hct 36.2 L Sodium Glucose POC Glucose (mg/dL) 198 H 170 H ALT Triglycerides 01/24/19 01/24/19 01/24/19 05:58 06:31 11:48 RBC Hgb Hct Sodium 135 L Glucose 113 H POC Glucose (mg/dL) 125 H 166 H ALT Triglycerides 01/24/19 16:41 RBC Hgb Hct Sodium Glucose POC Glucose (mg/dL) 126 H ALT Triglycerides - Diagnostic Findings Additional findings: CT Head wo cont 01/24/19. Global atrophy. Subcortical hypodensities c/w chronic small vessel ischemia. No ICH. Nil acute. TTE 01/23/19. LV size and function normal EF 55-60%. Normal LA size. Interatrial and interventricular septum intact. No valular vegetations seen. I have reviewed neuroimages myself. Assessment and Plan Assessment: Headache and dizziness, suspect related to hemodynamic reasons and not due to primary neurological dysfunction Plan: -MRI Brain to r/o embolic CVA given H/A and recent dental procedure -TTE unrevealing -Carotid duplex for dizziness -Medical management per cardiology -Will follow up -d/w patient and in detail. All questions answered. Thank you for this consultation. Please call with ?. Time with Patient: Greater than 30 (Time spent in direct patient care, greater than 50% of which was spent in [id number] counseling and coordination of care: 70 minutes)
[2019-01-24 17:56] LABS: Appearance,Urine Clear (Clear); Bilirubin,Urine Negative (Negative); Blood,Urine Negative (Negative); Color,Urine Light Yellow; Glucose,Urine (UA) Trace (Negative); Ketones,Urine Negative (Negative); Leukocyte Esterase,Urine Negative (Negative); Nitrite,Urine Negative (Negative); Protein,Urine Negative (Negative); Specific Gravity,Urine 1.014 (1.001-1.035); Urobilinogen,Urine <2.0 mg/dL (<2.0)
[2019-01-24 20:53] LABS: Glucose,Whole Blood 179 mg/dL (75-99)
[2019-01-24] MEDS ORDERED: diphenhydrAMINE 25 MG CAP PO PRN (21:00)
[2019-01-24] MEDS: LORATADINE 10 MG TAB PO SCH (21:06)
[2019-01-25] MEDS ORDERED: METHYL SALICYLATE/MENTHOL CREAM 5 OZ TOPICAL PRN (01:00)
[2019-01-25 06:19] LABS: Glucose,Whole Blood 152 mg/dL (75-99)
[2019-01-25] MEDS: metFORMIN 500 MG TAB PO SCH (06:32)
[2019-01-25] MEDS: INSULIN ASPART (NovoLOG) 100 UNIT/ML VIAL SQ SCH ×2 (06:32→12:18)
[2019-01-25] MEDS ORDERED: PANTOPRAZOLE 40 MG TABLET PO SCH (09:00)
[2019-01-25] MEDS: SODIUM CHLORIDE 0.9% 1,000 ML IV SCH (09:51)
[2019-01-25] MEDS: MAGNESIUM OXIDE 400 MG TAB PO SCH (09:56)
[2019-01-25] MEDS: PIPERACILLIN-TAZOBACTAM 3.375 GM in SODIUM CHLORIDE 0.9% 100 ML IVPB SCH (09:57)
[2019-01-25] MEDS: amLODIPine 5 MG TAB PO SCH (09:57)
[2019-01-25] MEDS: ATORVASTATIN 20 MG TAB PO SCH (09:57)
[2019-01-25] MEDS: DICYCLOMINE 10 MG CAP PO SCH (09:57)
[2019-01-25] MEDS: CITALOPRAM HYDROBROMIDE 20 MG TAB PO SCH (09:57)
[2019-01-25] MEDS: MULTIVITAMINS, THERA 1 EACH TAB PO SCH (09:57)
[2019-01-25 10:26] VITALS: PULSE 61; TEMP 98.2
--- NOTE | 2019-01-25 11:23 | US ---
EXAMINATION TYPE: US carotid duplex BILAT DATE OF EXAM: 01/25/2019 COMPARISON: CT Brain, MR brain scheduled today CLINICAL HISTORY: dizziness; multiple episodes of dizziness with low heart rate per patient EXAM MEASUREMENTS: RIGHT: Peak Systolic Velocity (PSV) cm/sec ----- Right CCA: 41.7 ----- Right ICA: 101.3 ----- Right ECA: 59.8 ICA/CCA ratio: 2.4 RIGHT: End Diastole cm/sec ----- Right CCA: 0.0 ----- Right ICA: 32.5 ----- Right ECA: 8.4 LEFT: Peak Systolic Velocity (PSV) cm/sec ----- Left CCA: 46.8 ----- Left ICA: 68.9 ----- Left ECA: 38.8 ICA/CCA ratio: 1.5 LEFT: End Diastole cm/sec ----- Left CCA: 15.7 ----- Left ICA: 22.7 ----- Left ECA: 9.5 VERTEBRALS (direction of flow): Right Vertebral: Antegrade Left Vertebral: Antegrade Rhythm: Normal Moderate calcification is present in bilateral ICA. Mild wall changes are present in bilateral ECA an d distal CCA, and PSV is wnl bilaterally. IMPRESSION: 1. Atheromatous plaquing without significant flow-limiting stenosis. Criteria for Assigning % of Stenosis / Diameter reduction (Estimation based on the indirect measurements of the internal carotid artery velocities (ICA PSV). 1. Normal (no stenosis)=ICA PSV < 125 cm/s: ratio < 2.0: ICA EDV<40 cm/s. 2. Less than 50% stenosis=ICA PSV < 125 cm/s: ratio < 2.0: ICA EDV<40 cm/s. 3. 50 to 69% stenosis=ICA PSV of 125 to 230 cm/s: ration 2.0 ? 4.0: ICA EDV 40-100 cm/s. 4. Greater than 70% stenosis to near occlusion= ICA PSV > 230 cm/s: ratio > 4.0: ICA EDV > 100 cm/s. 5. Near occlusion= ICA PSV velocities may be low or undetectable: variable ratio and ICA EDV. 6. Total occlusion=unable to detect flow.
[2019-01-25] MEDS: HYDROcodone/APAP 5-325MG 1 EACH TAB PO PRN (11:38)
[2019-01-25 11:45] LABS: Glucose,Whole Blood 130 mg/dL (75-99)
--- NOTE | 2019-01-25 11:59 | MR ---
MR brain without contrast HISTORY: Headache and dizziness Multiplanar multisequence imaging through the brain Correlation CT brain 01/24/2019 There is no restricted diffusion. Periventricular confluent and scattered hyperintensities are presen t on inversion recovery T2-weighted sequences in the pericallosal, periventricular, subcortical, juxt acortical regions. Inflammatory change present in the maxillary sinus, ethmoid air cells. Orbits show symmetric appearance. There is no hydrocephalus or hemorrhage. Cortical atrophy is noted. There is e xpected flow-voids noted. Corpus callosum, pituitary, cervical medullary junction, cerebellopontine a ngles are unremarkable. IMPRESSION: Age-related atrophy and chronic small vessel ischemia. No acute abnormality evident.
--- NOTE | 2019-01-25 12:45 | P.PN ---
Subjective Progress Note Date: 01/25/19 Principal diagnosis: Headache and dizziness MRI Brain. Carotid duplex. Still with nagging pain in the forehead. Eating lunch without N/V. No other neuro c/o. Objective - Vital Signs Vital signs: Vital Signs Temp 98.2 F 01/25/19 09:30 Pulse 61 01/25/19 09:30 Resp 20 01/25/19 09:30 BP 146/76 01/25/19 09:30 Pulse Ox 96 01/25/19 09:30 Intake & Output 01/24/19 01/25/19 01/25/19 18:59 06:59 18:59 Intake Total 820 580 Output Total 300 250 Balance 520 -250 580 Weight 88 kg Intake: Intake, IV Titration 340 340 Amount Piperacillin-Tazobactam 3 100 100 .375 gm In Sodium Chloride 0.9% 100 ml @ 25 mls/hr IVPB Q8HR [facility] Rx# :[id number] Sodium Chloride 0.9% 1, 240 240 000 ml @ 20 mls/hr IV . Q24H [facility] Rx#:[id number] Oral 480 240 Output: Urine 300 250 Other: Voiding Method Urinal Toilet Toilet Urinal Urinal # Voids 1 2 - Exam Gen NAD Pleasant and cooperative MS A+Ox4 Normal speech CN II-XII grossly intact no nystagmus Motor Normal bulk/tone No tremors HASSAN x4 Sens Intact to LT x4 Coord Not tested DTRs 2+/4 sym throughout Gait Deferred - Labs CBC & Chem 7: 01/24/19 05:58 01/24/19 05:58 Labs: Abnormal Lab Results - Last 24 Hours (Table) 01/24/19 01/24/19 01/24/19 Range/Units 15:32 16:41 20:52 POC Glucose (mg/dL) 126 H 179 H (75-99) mg/dL Urine Glucose (UA) Trace H (Negative) 01/25/19 01/25/19 Range/Units 06:17 11:44 POC Glucose (mg/dL) 152 H 130 H (75-99) mg/dL Urine Glucose (UA) (Negative) Microbiology - Last 24 Hours (Table) 01/24/19 16:33 Gram Stain - Preliminary Sputum Sputum Culture - Preliminary Assessment and Plan Assessment: Headache and dizziness, suspect related to hemodynamic reasons and not due to primary neurological dysfunction Plan: -MRI Brain did rule out embolic CVA or other acute structural explanation -TTE unrevealing -Carotid duplex unrevealing -Medical management per cardiology -d/w patient and in detail. All questions answered -Stable for discharge from acute neuro standpoint. Please call with new ?. Thank you again for this consultation. Time with Patient: Less than 30 (Time spent in direct patient care, greater than 50% of which was spent in [id number] counseling and coordination of care: 25 minutes)
[2019-01-25 13:21] VITALS: BP 168/73; RESP 18
--- NOTE | 2019-01-25 14:27 | P.PN ---
Subjective Progress Note Date: 01/25/19 This is a pleasant 68-year-old gentleman who follows regularly with Dr. VC Jaramillo in the office. He has a past medical history significant for diabetes, hypertension, hyperlipidemia, GERD, sleep apnea, multiple episodes of dizziness and near syncope, he underwent a cardiac catheterization in January of last year that revealed normal coronary arteries. Patient also has history of wearing an event monitor, apparently the event monitor tracing did reveal some significant bradycardia and patient had medication adjustments made at that time. He presents to the hospital on this occasion again with symptoms of dizziness and near syncope. The week prior to this episode, patient had sinus and upper respiratory infection with some mild dizziness, he was treated with cold medication along with initiation of antibiotics. He also states that he's been quite fatigued over the past 2 weeks. Prior to admission here, the patient had been out shopping, he states that he became very dizzy, diaphoretic, and felt as though he may pass out. He sat down in the chair, and did not completely lose consciousness. The patient states he never has completely lost consciousness but has had multiple episodes of the similar symptoms in the past. He initially presented to [facility] and transferred here. Patient's blood pressure [place] was 83/59 and his heart rate 50, he was given atropine with no change in heart rate, patient was also given some IV fluids heart rate persisted in the 50s, blood pressure came up to 108/59. His initial EKG performed at [facility] showed a normal sinus rhythm with a heart rate of 60, no acute changes noted. Lab data reviewed at [facility], BNP level CXI. Troponin 0.012. White blood cell count 12.0, hemoglobin 12.7, platelet count 182. Sodium 1:30, potassium 4.1, BUN 11 and creatinine 1.4. Magnesium 1.9, phosphorus stress 2.7 His EKG on presentation here showed a sinus bradycardia with biphasic ST-T waves noted in the anterior leads. On review of prior EKGs, patient has had sinus bradycardia, these ST-T wave changes appear to be new. His blood pressure on arrival here 114/70 with a heart rate of 50, 96% on room air. Blood pressure this morning 146/70 with a heart rate of 60, 97% on 2 L of oxygen. White blood cell count 9.4, hemoglobin 12.4, platelet count 192. Cholesterol 159, triglycerides 202, LDL 67 and HDL 52. At the time of my examination this morning, patient feels somewhat tired, denies any dizziness. 01/24/2019 Patient was seen and examined this morning, had mild episode of dizziness walking to the bathroom earlier this morning, complaining of mild headache. His heart rate today is in the 60 range, orthostatics overall were negative, mild drop from 149-129, and his tilt table test was negative. 01/25/2019 Patient was seen and examined this morning, denies any headache, no further episodes of dizziness, blood pressure and heart rate at been stable, no tachycardia or bradycardia arrhythmias of significance noted on the monitor. Objective - Vital Signs Vital signs: Vital Signs Temp 98.2 F 01/25/19 11:35 Pulse 61 01/25/19 11:35 Resp 18 01/25/19 11:35 BP 168/73 01/25/19 11:35 Pulse Ox 96 01/25/19 11:35 Intake & Output 01/24/19 01/25/19 01/25/19 18:59 06:59 18:59 Intake Total 820 820 Output Total 300 250 Balance 520 -250 820 Weight 88 kg Intake: Intake, IV Titration 340 340 Amount Piperacillin-Tazobactam 3 100 100 .375 gm In Sodium Chloride 0.9% 100 ml @ 25 mls/hr IVPB Q8HR [facility] Rx# :[id number] Sodium Chloride 0.9% 1, 240 240 000 ml @ 20 mls/hr IV . Q24H [facility] Rx#:[id number] Oral 480 480 Output: Urine 300 250 Other: Voiding Method Urinal Toilet Toilet Urinal Urinal # Voids 1 2 - Exam PHYSICAL EXAMINATION: GENERAL: 68-year-old gentleman in no acute distress at the time of my examination HEENT: Head is atraumatic, normocephalic. Pupils equal, round. Sclera anicteric. Conjunctiva are clear. Mucous membranes of the mouth are moist. Neck is supple. There is no elevated jugular venous pressure. No carotid bruit is heard. HEART EXAMINATION: Heart S1, S2 normal. No murmur or gallop heard. CHEST EXAMINATION: Lungs are clear to auscultation and precussion. No chest wall tenderness is noted on palpation or with deep breathing. ABDOMEN: Soft, nontender. Bowel sounds are heard. No organomegaly noted. EXTREMITIES: 2+ peripheral pulses with no evidence of peripheral edema and no calf tenderness noted. NEUROLOGIC patient is awake, alert and oriented 3 . - Labs CBC & Chem 7: 01/24/19 05:58 01/24/19 05:58 Labs: Abnormal Lab Results - Last 24 Hours (Table) 01/24/19 01/24/19 01/24/19 Range/Units 15:32 16:41 20:52 POC Glucose (mg/dL) 126 H 179 H (75-99) mg/dL Urine Glucose (UA) Trace H (Negative) 01/25/19 01/25/19 Range/Units 06:17 11:44 POC Glucose (mg/dL) 152 H 130 H (75-99) mg/dL Urine Glucose (UA) (Negative) Microbiology - Last 24 Hours (Table) 01/24/19 16:33 Gram Stain - Preliminary Sputum Sputum Culture - Preliminary Assessment and Plan Plan: Assessment and plan #1 symptoms of dizziness and diaphoresis with near syncope. Could be secondary to bradycardia, could also be secondary to orthostatic hypotension. #2 recent upper respiratory infection, with initiation of recent antibiotics #3 diabetes #4 hypertension #5 hyperlipidemia #6 obstructive sleep apnea, patient uses a CPAP #7 atypical chest pain, troponins negative 3. Patient underwent a cardiac catheterization in January of last year which revealed normal coronary arteries EKG shows a sinus bradycardia with ST-T wave changes noted in the anterior leads. #8 documented sinus bradycardia Plan TSH level was normal, echo revealed normal left ventricular systolic function, tilt table negative, no significant orthostatic hypotension. From cardiology's perspective, we recommend patient to follow-up in the office with Dr. VC Jaramillo. Perhaps be considered for a loop recorder as an outpatient, once the infection has cleared.. DNP note has been reviewed, I agree with a documented findings and plan of care. Patient was seen and examined.
--- NOTE | 2019-01-25 14:31 | P.PN ---
Subjective Progress Note Date: 01/24/19 This is a 68-year-old gentleman with history of chest pain, angina, heart catheterization in January 2018 reported as normal coronaries, diabetes mellitus, gastroesophageal reflux disease, hyperlipidemia, hypertension, obstructive sleep apnea, dizziness/syncope transferred from [facility] to the ER with complaints of dizziness, near syncope. Reports Recently treated for sinus infection outpatient and has been feeling quite fatigued, persistent nasal congestion, burning in the eyes,felt febrile, nausea. On Tuesday,patient was eating biscuits and gravy at [employer] , felt dizzy, stated that he looked pale, resolved after sitting in the car. Proceeded to go shopping, became diaphoretic, dizzy, felt as if he might pass out and sat down. Denies losing consciousness, incontinence of urine or bowel. Presents to the ER, hypotensive with systolic blood pressures in the low 80s, heart rates in the 50s, received atropine, IV fluids, blood pressure improved, heart rate unchanged and patient was transferred to [facility]. Patient also had chest pain earlier subsided, [place] EKG reporting sinus rhythm, troponin 0.012X2, WBC 12 hemoglobin 12.7, platelets 182. Sodium 1:30, potassium 4.1, magnesium 1.9, BUN 11 and creatinine 1.4.EKG in our ER reported sinus bradycardia, ST-T wave abnormalities in the anterior leads. Triglycerides 202. Vital signs stable on admission, maintaining O2 sats in the high 90s on 2 L nasal cannula. Afebrile, white count has decreased ,currently 9.4 with dizziness subsided. Denies chest pain, palpitations or shortness of breath. Cardiology consulted. Evaluated by cardiology. Echo reporte normal LV function, EF 50-60% tilt table negative, negative for orthostatic hypotension recommended patient follow with Dr. VC Espinoza, in a week, possible loop recorder consideration. Continues to have sinus congestion, reports green sputum production, ongoing frontal headache, dizziness. Telemetry sinus rhythm, heart rates in the 60s. Afebrile, normal WBC. Denies chest pain, palpitations or shortness of breath. Objective - Vital Signs Vital signs: Vital Signs Temp 98.0 F 01/24/19 11:40 Pulse 69 01/24/19 11:40 Resp 18 01/24/19 11:40 BP 159/78 01/24/19 11:40 Pulse Ox 96 01/24/19 11:40 Intake & Output 01/23/19 01/24/19 01/24/19 18:59 06:59 18:59 Intake Total 50 820 Output Total 1400 1050 300 Balance -1350 -1050 520 Weight 88.9 kg 88.5 kg Intake: IV 50 Intake, IV Titration 340 Amount Piperacillin-Tazobactam 3 100 .375 gm In Sodium Chloride 0.9% 100 ml @ 25 mls/hr IVPB Q8HR [facility] Rx# :[id number] Sodium Chloride 0.9% 1, 240 000 ml @ 20 mls/hr IV . Q24H [facility] Rx#:[id number] Oral 480 Output: Urine 1400 1050 300 Other: Voiding Method Urinal Urinal # Voids 4 1 - Exam GENERAL: Sitting up in bed, no acute distress HEENT: Conjunctivae normal. eyes normal. Oral mucosa moist NECK: No JVD. No thyroid enlargement. No LNs CARDIOVASCULAR: S1, S2 regular. No murmur. RESPIRATION: Breath sounds diminished in the bases. No rhonchi or crackles. No bronchial breathing. ABDOMEN: Soft, nontender . No guarding. no masses palpable.Bowel sounds. LEGS: No edema. no swelling PSYCHIATRY: Alert and oriented X3, mood and affect normal. NERVOUS SYSTEM: Cranial N 2-12 grossly normal. Moves all 4 limbs. Diffuse weakness, No focal deficits. Strength and sensation grossly intact.. No focal deficits Skin: no lesions, no rash - Labs CBC & Chem 7: 01/24/19 05:58 01/24/19 05:58 Labs: Abnormal Lab Results - Last 24 Hours (Table) 01/23/19 01/23/19 01/24/19 Range/Units 17:02 21:06 05:58 RBC 3.83 L (4.30-5.90) m/uL Hgb 12.1 L (13.0-17.5) gm/dL Hct 36.2 L (39.0-53.0) % Sodium (137-145) mmol/L Glucose (74-99) mg/dL POC Glucose (mg/dL) 198 H 170 H (75-99) mg/dL 01/24/19 01/24/19 01/24/19 Range/Units 05:58 06:31 11:48 RBC (4.30-5.90) m/uL Hgb (13.0-17.5) gm/dL Hct (39.0-53.0) % Sodium 135 L (137-145) mmol/L Glucose 113 H (74-99) mg/dL POC Glucose (mg/dL) 125 H 166 H (75-99) mg/dL Assessment and Plan Assessment: -Chest pain, troponins negative 3, EKG with anterior lead changes, cardiac catheterization January 2018,reported normal coronaries, cardiology following -Dizziness, near-syncope, bradycardia -Recent upper respiratory,sinus infection, possibly failed outpatient treatment, continues to have nasal congestion, burning eyes, headache -History of angina, chest pain -Gastroesophageal reflux disease -Hyperlipidemia -Hypertension -Obstructive sleep apnea -Obesity, BMI 29.8 -History of syncope -Diabetes mellitus -Anxiety Plan: Continue on current medication regime ,monitoring and symptomatic treatment. Brain CT ordered, neuro consulted related to ongoing headache. Maintain IV antibiotics of Zosyn. Further recommendations to follow. The impression and plan of care has been dictated as directed. : I performed a history and examination of this patient, discussed the same with the dictator. I agree with the dictator's note ,documented as a scribe. Any additional findings or plans will be noted. Time taken:35 min.
--- NOTE | 2019-01-25 14:43 | P.DS ---
Providers Date of admission: 01/22/19 18:17 Expected date of discharge: 01/25/19 Attending physician: Hawk Gaona Consults: 01/22/19 18:17 Consult Physician Urgent Consulting Provider: [facility] Consult Reason/Comments: Syncope, chest pain, bradycardia Do you want consulting provider notified?: Yes 01/24/19 15:05 Consult Physician Routine Consulting Provider: Candace Cortes Consult Reason/Comments: Headaches, dizziness Do you want consulting provider notified?: Yes Primary care physician: [facility] Course: Final Diagnoses: -Chest pain, troponins negative 3, EKG with anterior lead changes, cardiac catheterization January 2018,reported normal coronaries, cardiology following -Dizziness, near-syncope, bradycardia, headache. Neuro workup completed. MRI Negative for embolic CVA or other acute structural cause. -Recent upper respiratory,sinus infection, possibly failed outpatient treatment, continues to have nasal congestion, burning eyes, headache -History of angina, chest pain -Gastroesophageal reflux disease -Hyperlipidemia -Hypertension -Obstructive sleep apnea -Obesity, BMI 29.8 -History of syncope -Diabetes mellitus -Anxiety Hospital course:This is a 68-year-old gentleman with history of chest pain, angina, heart catheterization in January 2018 reported as normal coronaries, diabetes mellitus, gastroesophageal reflux disease, hyperlipidemia, hypertension, obstructive sleep apnea, dizziness/syncope transferred from [facility] to the ER with complaints of dizziness, near syncope. Reports Recently treated for sinus infection outpatient and has been feeling quite fatigued, persistent nasal congestion, burning in the eyes,felt febrile, nausea. On Tuesday,patient was eating biscuits and gravy at [employer] , felt dizzy, stated that he looked pale, resolved after sitting in the car. Proceeded to go shopping, became diaphoretic, dizzy, felt as if he might pass out and sat down. Denies losing consciousness, incontinence of urine or bowel. Presents to the ER, hypotensive with systolic blood pressures in the low 80s, heart rates in the 50s, received atropine, IV fluids, blood pressure improved, heart rate unchanged and patient was transferred to [facility]. Patient also had chest pain earlier subsided, [place] EKG reporting sinus rhythm, troponin 0.012X2, WBC 12 hemoglobin 12.7, platelets 182. Sodium 1:30, potassium 4.1, magnesium 1.9, BUN 11 and creatinine 1.4.EKG in our ER reported sinus bradycardia, ST-T wave abnormalities in the anterior leads. Triglycerides 202. Vital signs stable on admission, maintaining O2 sats in the high 90s on 2 L nasal cannula. Afebrile, white count has decreased ,currently 9.4 with dizziness subsided. Denies chest pain, palpitations or shortness of breath. Cardiology consulted. Evaluated by cardiology. Echo reporte normal LV function, EF 50-60% tilt table negative, negative for orthostatic hypotension recommended patient follow with Dr. VC Espinoza, in a week, possible loop recorder consideration. Continues to have sinus congestion, reports green sputum production, ongoing frontal headache, dizziness. Telemetry sinus rhythm, heart rates in the 60s. Afebrile, normal WBC. Denies chest pain, palpitations or shortness of breath. Brain CT report age-related atrophic and chronic small vessel ischemic change without acute intracranial process .Evaluated by neurology with neuro workup ordered. Brain MRI reported age-related atrophy, chronic small vessel ischemia, no acute abnormality. Inflammatory change present in the maxillary sinus, et hmoid air cells. Carotid Doppler reported no hemodynamic significant stenosis. This morning complains of chronic neck pain, no dizziness, no headache. Good diet intake with no nausea vomiting or diarrhea. Denies abdominal pain. Cleared by neurology and cardiology for discharge. Cardiology discussing potential loop recorder to be evaluated at outpatient follow-up visit. Patient is being discharged home in stable condition with guarded prognosis. - Exam GENERAL: Sitting up in bed, no acute distress HEENT: Conjunctivae normal. eyes normal. Oral mucosa moist NECK: No JVD. No thyroid enlargement. No LNs CARDIOVASCULAR: S1, S2 regular. No murmur. RESPIRATION: Breath sounds diminished in the bases. No rhonchi or crackles. ABDOMEN: Soft, nontender . No guarding. no masses palpable.Bowel sounds. LEGS: No edema. no swelling PSYCHIATRY: Alert and oriented X3, mood and affect normal. NERVOUS SYSTEM: Cranial N 2-12 grossly normal. Speech fluent and appropriate. Moves all 4 limbs. No focal deficits. Strength and sensation grossly intact. Skin: no lesions, no rash The impression and plan of care has been dictated as directed. : I performed a history and examination of this patient, discussed the same with the dictator. I agree with the dictator's note ,documented as a scribe. Any additional findings or plans will be noted. Time taken: 35 Min. Patient Condition at Discharge: Stable Plan - Discharge Summary New Discharge Prescriptions: Continue Ranitidine HCl [Zantac] 150 mg PO BID Multivitamins, Thera [Multivitamin (formulary)] 1 tab PO DAILY metFORMIN HCL [Glucophage] 500 mg PO DAILY Magnesium Oxide [Mag-Ox] 400 mg PO DAILY Citalopram Hydrobromide [CeleXA] 20 mg PO DAILY Atorvastatin [Lipitor] 20 mg PO DAILY #30 tab amLODIPine [Norvasc] 5 mg PO DAILY tab Nitroglycerin Sl Tabs [Nitrostat] 0.4 mg SUBLINGUAL Q5M PRN tab PRN Reason: Chest Pain HYDROcodone/APAP 5-325MG [[place] 5-325] 1 tab PO BID Dicyclomine [Bentyl] 10 mg PO DAILY Amoxic-Pot Clav 875-125Mg [Augmentin 875-125] 1 tab PO Q12HR #0 Discontinued busPIRone HCl [Buspar] 10 mg PO BID Lisinopril [Prinivil] 20 mg PO DAILY Tamsulosin HCl [Flomax] 0.4 mg PO DAILY Metoprolol Succinate (ER) [Toprol XL] 25 mg PO DAILY Lidocaine Viscous 2% [Xylocaine Viscous] 5 ml MUCOUS MEM Q3H PRN PRN Reason: Pain Discharge Medication List Citalopram Hydrobromide [CeleXA] 20 mg PO DAILY 09/13/17 [History] Magnesium Oxide [Mag-Ox] 400 mg PO DAILY 09/13/17 [History] Multivitamins, Thera [Multivitamin (formulary)] 1 tab PO DAILY 09/13/17 [History] Ranitidine HCl [Zantac] 150 mg PO BID 09/13/17 [History] metFORMIN HCL [Glucophage] 500 mg PO DAILY 09/13/17 [History] Atorvastatin [Lipitor] 20 mg PO DAILY #30 tab 12/20/17 [Rx] Nitroglycerin Sl Tabs [Nitrostat] 0.4 mg SUBLINGUAL Q5M PRN tab 12/29/17 [Rx] amLODIPine [Norvasc] 5 mg PO DAILY tab 12/29/17 [Rx] Dicyclomine [Bentyl] 10 mg PO DAILY 01/22/19 [History] HYDROcodone/APAP 5-325MG [[place] 5-325] 1 tab PO BID 01/22/19 [History] Amoxic-Pot Clav 875-125Mg [Augmentin 875-125] 1 tab PO Q12HR #0 01/25/19 [Rx] Follow up Appointment(s)/Referral(s): Hawk Gaona MD [Primary Care Provider] - 01/29/19 1:45 pm (Tuesday) Wellington Jaramillo MD [STAFF PHYSICIAN] - 1 Week (Spoke to temporary receptionist. Office will call with appointment time) Patient Instructions/Handouts: Syncope (DC) Activity/Diet/Wound Care/Special Instructions: Continue antibiotics at home. Discharge Disposition: HOME SELF-CARE
== END 2019-01-25 14:15 | disposition home or self-care (01) | DRG 310 ==
LOC: EC 16:03 → 3SCARD 18:17
PROVIDERS: ADMIT Family Medicine; ATTEND Family Medicine
PROC: 4A03XB1 Measurement of Arterial Pressure, Peripheral, External Approach (ICD-10-PCS; 2019-01-23)
PROC: 4A02XFZ Measurement of Cardiac Rhythm, External Approach (ICD-10-PCS; principal; 2019-01-23 10:52)
DX: R00.1 Bradycardia, unspecified (principal); R07.89 Other chest pain; E11.9 Type 2 diabetes mellitus without complications; E66.9 Obesity, unspecified; E78.5 Hyperlipidemia, unspecified; F41.9 Anxiety disorder, unspecified; G47.33 Obstructive sleep apnea (adult) (pediatric); G89.29 Other chronic pain; I10 Essential (primary) hypertension; I44.4 Left anterior fascicular block; J06.9 Acute upper respiratory infection, unspecified; K21.9 Gastro-esophageal reflux disease without esophagitis; J32.9 Chronic sinusitis, unspecified; M54.2 Cervicalgia; R42 Dizziness and giddiness; R55 Syncope and collapse; K44.9 Diaphragmatic hernia without obstruction or gangrene; I83.90 Asymptomatic varicose veins of unspecified lower extremity; K64.9 Unspecified hemorrhoids; Z68.29 Body mass index [BMI] 29.0-29.9, adult; Z79.899 Other long term (current) drug therapy; Z79.84 Long term (current) use of oral hypoglycemic drugs; Z88.5 Allergy status to narcotic agent; Z88.8 Allergy status to other drugs, medicaments and biological substances; Z91.041 Radiographic dye allergy status; Z90.49 Acquired absence of other specified parts of digestive tract; Z98.42 Cataract extraction status, left eye; Z98.41 Cataract extraction status, right eye; Z96.1 Presence of intraocular lens; Z86.14 Personal history of Methicillin resistant Staphylococcus aureus infection; Z82.49 Family history of ischemic heart disease and other diseases of the circulatory system; Z82.0 Family history of epilepsy and other diseases of the nervous system
CPT/HCPCS: 70450; 70551; 71046; 80048; 80053; 80061; 81003; 84443; 84484; 85025; 87070; 87205; 87502; 93005; 93306; 93660; 93880; 94760; 99285

== ENCOUNTER 2019-01-30 23:01 | Emergency (ER) | payer MEDICARE, OTHER ==
[2019-01-30 23:09] VITALS: TEMP 97.9
--- NOTE | 2019-01-31 00:05 | ED ---
Chest Pain HPI - General Chief Complaint: Chest Pain Stated Complaint: Near Syncope Time Seen by Provider: 01/31/19 00:03 Source: patient Mode of arrival: wheelchair Limitations: no limitations - History of Present Illness Initial Comments: This patient is a 68-year-old man presenting with pain of the central and left torso, which is been going on intermittently for number of months. The patient has been seen by cardiology for this. Tonight's episode had been starting a number of hours ago. Patient denies any anginal type symptoms, no diaphoresis, dyspnea, nausea or vomiting, no lightheadedness, palpitations or syncope. The pain was sometimes burning, sometimes sharp. He has not discovered worsening or relieving factors. MD Complaint: chest pain -: month(s) Onset: during rest Pain Location: substernal, left chest Severity: moderate Quality: aching Consistency: intermittent, now resolved Improves With: nothing Worsens With: nothing Treatments Prior to Arrival: none - Related Data Home Medications Medication Instructions Recorded Confirmed Citalopram Hydrobromide [CeleXA] 20 mg PO DAILY 09/13/17 01/22/19 Magnesium Oxide [Mag-Ox] 400 mg PO DAILY 09/13/17 01/22/19 Multivitamins, Thera [Multivitamin 1 tab PO DAILY 09/13/17 01/22/19 (formulary)] Ranitidine HCl [Zantac] 150 mg PO BID 09/13/17 01/22/19 metFORMIN HCL [Glucophage] 500 mg PO DAILY 09/13/17 01/22/19 Dicyclomine [Bentyl] 10 mg PO DAILY 01/22/19 01/22/19 HYDROcodone/APAP 5-325MG [[place] 1 tab PO BID 01/22/19 01/22/19 5-325] Previous Rx's Medication Instructions Recorded Atorvastatin [Lipitor] 20 mg PO DAILY #30 tab 12/20/17 Nitroglycerin Sl Tabs [Nitrostat] 0.4 mg SUBLINGUAL Q5M PRN tab 12/29/17 amLODIPine [Norvasc] 5 mg PO DAILY tab 12/29/17 Amoxic-Pot Clav 875-125Mg 1 tab PO Q12HR #0 01/25/19 [Augmentin 875-125] Allergies Allergy/AdvReac Type Severity Reaction Status Date / Time dipyridamole AdvReac Nausea & Verified 01/30/19 23:13 [From Persantine] Vomiting Iodinated Contrast- Oral and AdvReac Nausea & Verified 01/30/19 23:13 IV Dye Vomiting [Iodinated Contrast Media - IV Dye] morphine AdvReac Nausea & Verified 01/30/19 23:13 Vomiting Review of Systems ROS Statement: Those systems with pertinent positive or pertinent negative responses have been documented in the HPI. ROS Other: All systems not noted in ROS Statement are negative. Constitutional: Denies: fever, chills Respiratory: Denies: cough, dyspnea Cardiovascular: Reports: chest pain. Denies: palpitations, dyspnea on exertion, edema, syncope Gastrointestinal: Denies: abdominal pain, nausea, vomiting Genitourinary: Denies: dysuria, hematuria Musculoskeletal: Denies: back pain Skin: Denies: rash Neurological: Denies: headache, weakness, numbness EKG Findings - EKG Results: EKG: interpreted by ERMD, sinus rhythm (Rate 65 bpm), normal axis, normal ST/T, no acute changes - Blocks, [place], Hypertrophy, ST Abn: AV and intraventricular conduction: left anterior fascicular block Past Medical History Past Medical History: Chest Pain / Angina, Diabetes Mellitus, GERD/Reflux, Hyperlipidemia, Hypertension, Sleep Apnea/CPAP/BIPAP, Syncope Additional Past Medical History / Comment(s): IDDM, ERIKA cannot tolerate CPAP, varicose veins, hiatal hernia, constipation occas bleeding with stools, hemorrhoids, hyperkalemia History of Any Multi-Drug Resistant Organisms: MRSA Date of last positivie culture/infection: November 2017 MDRO Source:: Abdomen at [facility] per Dr. Verdin Past Surgical History: Back Surgery, Cholecystectomy, Heart Catheterization, Hernia Repair Additional Past Surgical History / Comment(s): arthroscopy right knee. bilateral cataracts,jeancarlos inguinal hernia repair, alban funloplasty Past Anesthesia/Blood Transfusion Reactions: No Reported Reaction, Motion Sickne ss Past Psychological History: Anxiety Smoking Status: Never smoker Past Alcohol Use History: Rare Past Drug Use History: None Reported - Past Family History Mother Additional Family Medical History / Comment(s): HAD PACEMAKER, age 86 Father Family Medical History: Dementia General Exam Limitations: no limitations General appearance: alert, in no apparent distress Head exam: Present: atraumatic, normocephalic Eye exam: Present: normal appearance. Absent: scleral icterus, conjunctival injection ENT exam: Present: normal oropharynx Neck exam: Present: normal inspection Respiratory exam: Present: normal lung sounds bilaterally, chest wall tenderness. Absent: respiratory distress, wheezes, rales, rhonchi, stridor Cardiovascular Exam: Present: regular rate, normal rhythm, normal heart sounds. Absent: systolic murmur, diastolic murmur, rubs, gallop GI/Abdominal exam: Present: soft. Absent: distended, tenderness, guarding, rebound, rigid, mass Extremities exam: Present: normal inspection, normal capillary refill. Absent: pedal edema, calf tenderness Back exam: Present: normal inspection. Absent: CVA tenderness (R), CVA tenderness (L) Neurological exam: Present: alert Skin exam: Present: warm, dry, intact, normal color. Absent: rash Course Vital Signs 01/30/19 01/31/19 23:06 05:17 Temperature 97.9 F 97.9 F Pulse Rate 67 61 Respiratory 16 18 Rate Blood Pressure 109/69 128/86 O2 Sat by Pulse 96 97 Oximetry Chest Pain MDM - MDM This patient is 68-year-old man who has been having months of intermittent chest pains. The pains are mainly atypical and there is also reproducible component. I did review and he had heart catheterization previously are system with normal coronary arteries. The patient is precaution has 2 troponins here that are negative. He remained symptom-free. We'll have the patient follow-up. Return parameters discussed Disposition Clinical Impression: Chest pain Disposition: HOME SELF-CARE Condition: Good Instructions (If sedation given, give patient instructions): Chest Pain (ED) Is patient prescribed a controlled substance at d/c from ED?: No Referrals: Hawk Gaona MD [Primary Care Provider] - 1-2 days
[2019-01-31 00:06] LABS: Basophils # (A) 0.1 k/uL (0-0.2); Basophils % (A) 1 %; Eosinophils # (A) 0.3 k/uL (0-0.7); Eosinophils % (A) 2 %; HCT 38.5 % (39.0-53.0); Lymphocytes # (A) 1.5 k/uL (1.0-4.8); Lymphocytes % (A) 13 %; MCH 32.1 pg (25.0-35.0); MCHC 33.8 g/dL (31.0-37.0); Mean Platelet Volume 8.2; Monocytes # (A) 0.5 k/uL (0-1.0); Monocytes % (A) 4 %; Neutrophils # (A) 9.2 k/uL (1.3-7.7); Neutrophils % (A) 79 %; Platelet Count 200 k/uL (150-450); RBC 4.05 m/uL (4.30-5.90); RDW 13.1 % (11.5-15.5); WBC 11.6 k/uL (3.8-10.6)
[2019-01-31 00:15] LABS: INR 0.9 (<1.2)
[2019-01-31 00:30] LABS: ALT 22 U/L (21-72); AST 23 U/L (17-59); African American GFR (CKD) >90 (>60 ml/min/1.73 sqM); Albumin 4.4 g/dL (3.5-5.0); Alkaline Phosphatase 61 U/L (38-126); Anion Gap 12 mmol/L; Blood Urea Nitrogen 13 mg/dL (9-20); Calcium 9.2 mg/dL (8.4-10.2); Carbon Dioxide 20 mmol/L (22-30); Chloride 98 mmol/L (98-107); Glucose 172 mg/dL (74-99); Magnesium 1.6 mg/dL (1.6-2.3); Potassium 4.6 mmol/L (3.5-5.1); Sodium 130 mmol/L (137-145); Total Bilirubin 0.3 mg/dL (0.2-1.3); Total Protein 7.1 g/dL (6.3-8.2)
--- NOTE | 2019-01-31 00:37 | XR ---
EXAM: XR Chest, 2 Views CLINICAL HISTORY: Chest pain TECHNIQUE: Frontal and lateral views of the chest. COMPARISON: Chest x-ray dated 01/23/2019 FINDINGS: Lungs: Bibasilar atelectasis. Otherwise, the lungs are clear. Pleural space: Unremarkable. No pneumothorax. Heart: Unremarkable. No cardiomegaly. Mediastinum: Unremarkable. Bones/joints: Unremarkable. IMPRESSION: No acute findings.
[2019-01-31] MEDS ORDERED: MAG HYDROX/AL HYDROX/SIMETH 30 ML, HYOSCYAMINE ELIXIR 10 ML, CIMETIDINE HCL 300 MG, LID... PO STA ×4 (02:35)
[2019-01-31 06:29] VITALS: BP 128/86; PULSE 61; RESP 18
== END 2019-01-31 05:17 | disposition home or self-care (01) ==
LOC: EC 23:01
DX: R07.9 Chest pain, unspecified (principal); E11.9 Type 2 diabetes mellitus without complications; I25.2 Old myocardial infarction; K21.9 Gastro-esophageal reflux disease without esophagitis; F41.9 Anxiety disorder, unspecified; I10 Essential (primary) hypertension; Z79.84 Long term (current) use of oral hypoglycemic drugs; Z79.899 Other long term (current) drug therapy; Z95.5 Presence of coronary angioplasty implant and graft; Z91.041 Radiographic dye allergy status; Z88.5 Allergy status to narcotic agent; Z88.8 Allergy status to other drugs, medicaments and biological substances; Z87.19 Personal history of other diseases of the digestive system; Z86.14 Personal history of Methicillin resistant Staphylococcus aureus infection
CPT/HCPCS: 36415; 71046; 80053; 83735; 84484; 85025; 85610; 85730; 93005; 99285

== ENCOUNTER 2019-02-07 16:48 | Emergency (ER) | payer MEDICARE, OTHER ==
[2019-02-07 17:03] VITALS: TEMP 98.7
[2019-02-07] MEDS ORDERED: MECLIZINE 12.5 MG TAB PO STA (17:34)
[2019-02-07] MEDS ORDERED: ACETAMINOPHEN TAB 325 MG TAB PO STA (17:37)
[2019-02-07 18:01] LABS: Basophils # (A) 0.1 k/uL (0-0.2); Basophils % (A) 1 %; Eosinophils # (A) 0.6 k/uL (0-0.7); Eosinophils % (A) 7 %; HGB 13.3 gm/dL (13.0-17.5); Lymphocytes # (A) 2.4 k/uL (1.0-4.8); Lymphocytes % (A) 27 %; MCH 32.9 pg (25.0-35.0); MCV 94.2 fL (80.0-100.0); Mean Platelet Volume 8.1; Monocytes # (A) 0.5 k/uL (0-1.0); Monocytes % (A) 5 %; Neutrophils % (A) 57 %; Platelet Count 187 k/uL (150-450); RBC 4.03 m/uL (4.30-5.90); WBC 8.8 k/uL (3.8-10.6)
[2019-02-07 18:13] LABS: ALT 15 U/L (21-72); AST 24 U/L (17-59); African American GFR (CKD) >90 (>60 ml/min/1.73 sqM); Albumin 4.2 g/dL (3.5-5.0); Alkaline Phosphatase 66 U/L (38-126); Anion Gap 8 mmol/L; Blood Urea Nitrogen 11 mg/dL (9-20); Calcium 9.2 mg/dL (8.4-10.2); Carbon Dioxide 24 mmol/L (22-30); Chloride 100 mmol/L (98-107); Glucose 134 mg/dL (74-99); Sodium 132 mmol/L (137-145); Total Bilirubin 0.4 mg/dL (0.2-1.3); Total Protein 6.9 g/dL (6.3-8.2)
--- NOTE | 2019-02-07 18:49 | CT ---
EXAMINATION TYPE: CT cervical spine wo con DATE OF EXAM: 02/07/2019 COMPARISON: None HISTORY: Dizziness with fall CT DLP: 420.6 mGycm Automated exposure control for dose reduction was used. TECHNIQUE: CT scan of the cervical spine is obtained without contrast, axial images are obtained, sa gittal and coronal reformatted images are also reviewed. FINDINGS: There is 4 mm anterior subluxation of C4 in relation to C5. There is a mild 3 mm degenerati ve retrolisthesis at C6 7. The posterior elements are intact. There is calcification and thickening o f the transverse ligament. Skull base is intact. There is no compression fracture. There is degenerat maira moderate narrowing at C6-7 disc. There is multilevel hypertrophic facet arthropathy in the mid cervical spine. IMPRESSION: Spondylotic changes with subluxation deformity as above. No fracture seen.
--- NOTE | 2019-02-07 18:51 | CT ---
EXAMINATION TYPE: CT sinus wo con DATE OF EXAM: 02/07/2019 COMPARISON: None HISTORY: Dizziness with fall CT DLP: 318.8 mGycm. Automated Exposure Control for Dose Reduction was Utilized. TECHNIQUE: CT scan of the sinuses is performed without contrast, axial images are obtained, coronal r eformatted images are also reviewed. FINDINGS: The orbital margins appear intact. There is mucosal thickening in the right maxillary sinus . There is no evidence of orbital mass. I see no definite blowout fracture. The maxilla is intact. Na mami bone appears intact. There is fairly normal aeration of the ethmoid frontal and sphenoid sinuses. Zygomatic arches appear normal. The visualized mandible appears intact. Temporomandibular joints migue ear normal. IMPRESSION: Right maxillary sinusitis. No fracture seen.
--- NOTE | 2019-02-07 18:52 | XR ---
EXAMINATION TYPE: XR chest 2V DATE OF EXAM: 02/07/2019 COMPARISON: 01/31/2019 HISTORY: Dizziness TECHNIQUE: Frontal and lateral views of the chest are obtained. FINDINGS: Heart and mediastinum are normal. Lungs are clear. Diaphragm is normal. There are chest le ads. Bony thorax is intact. IMPRESSION: Normal chest. Inspiration improved slightly compared to old exam.
--- NOTE | 2019-02-07 18:53 | XR ---
EXAMINATION TYPE: XR pelvis AP view DATE OF EXAM: 02/07/2019 COMPARISON: 12/02/2017 HISTORY: Dizziness TECHNIQUE: Single view FINDINGS: Pelvic ring is intact. Proximal femurs are intact. There is spurring of the acetabula. Sacr oiliac joints appear intact. IMPRESSION: Mild acetabular spurring. No fracture seen.
--- NOTE | 2019-02-07 18:55 | XR ---
EXAMINATION TYPE: XR lumbar spine 2 or 3V DATE OF EXAM: 02/07/2019 COMPARISON: 03/30/2012 HISTORY: Pain TECHNIQUE: 3 views FINDINGS: There is old posterior fusion surgery at L4-5. There is 5 mm L4-5 subluxation. There is mod erate L5 disc space narrowing. There is no compression fracture of the lumbar spine. There is 25% ant erior wedging of T12 vertebra. Sacroiliac joints appear intact. There is L4 laminectomy. IMPRESSION: Previous surgery. Spondylosis at L4-5 that has progressed compared to old exam. There is progression of the disc space narrowing. No change in the subluxation. There is a new mild compressio n fracture of T12 compared to old exam. Fracture appears old.
--- NOTE | 2019-02-07 18:56 | XR ---
EXAMINATION TYPE: XR tibia fibula RT DATE OF EXAM: 02/07/2019 COMPARISON: NONE HISTORY: Dizziness TECHNIQUE: 2 views FINDINGS: Knee joint and ankle joint appear intact. I see no fracture nor dislocation. There are no e rosions. IMPRESSION: No acute abnormality of the right tibia and fibula.
[2019-02-07] MEDS ORDERED: LEVOFLOXACIN 750 MG TAB PO STA (19:39)
--- NOTE | 2019-02-07 19:43 | ED ---
Dizziness HPI - General Chief Complaint: Dizziness Stated Complaint: dizziness Time Seen by Provider: 02/07/19 17:08 Source: patient Mode of arrival: wheelchair Limitations: no limitations - History of Present Illness Initial Comments: The patient is a 60-year-old male who presents to the emergency department with reported dizziness. The patient reports to vertiginous symptoms especially with head movement. States he's been suffering from episodes since April of last year. He had a recent hospitalization which she had a neuro and cardio evalua tion. They did recommend follow-up with cardiology for possible loop recorder. Patient states he has not yet been seen in office. He denies a presyncopal sensation. He does admit to sinus pressure and ear pain. Reports decreased hearing with ear popping. Denies any head trauma. No headaches or visual changes. No ataxia. No reported confusion or slurred speech per the . No unilateral numbness or weakness. The patient denies any chest pain or shortness of breath. He denies any fevers or chills. Does report to persistent nasal drainage. No sore throat. No nausea or vomiting. Denies any changes in his bowel or bladder habits. Because of his vertiginous symptoms he states that he lost his balance on the steps and fell three days prior. He did sustain an abrasion to his right pal. Also reports to worsening lumbar back pain. He does have a history of chronic back pain. No saddle anesthesia or bowel or bladder dependence. No weakness in his lower extremities. No difficulties in ambulation. There are no other alleviating, Precipitating or modifying factors - Related Data Home Medications Medication Instructions Recorded Confirmed Citalopram Hydrobromide [CeleXA] 20 mg PO DAILY 09/13/17 02/07/19 Magnesium Oxide [Mag-Ox] 400 mg PO DAILY 09/13/17 02/07/19 Multivitamins, Thera [Multivitamin 1 tab PO DAILY 09/13/17 02/07/19 (formulary)] Ranitidine HCl [Zantac] 150 mg PO BID 09/13/17 02/07/19 metFORMIN HCL [Glucophage] 500 mg PO DAILY 09/13/17 02/07/19 Dicyclomine [Bentyl] 10 mg PO DAILY 01/22/19 02/07/19 HYDROcodone/APAP 5-325MG [[place] 1 tab PO BID 01/22/19 02/07/19 5-325] Lisinopril 20 mg PO DAILY 02/07/19 02/07/19 Previous Rx's Medication Instructions Recorded Atorvastatin [Lipitor] 20 mg PO DAILY #30 tab 12/20/17 Nitroglycerin Sl Tabs [Nitrostat] 0.4 mg SUBLINGUAL Q5M PRN tab 12/29/17 amLODIPine [Norvasc] 5 mg PO DAILY tab 12/29/17 Levofloxacin [Levaquin] 750 mg PO DAILY 10 Days #10 tab 02/07/19 Allergies Allergy/AdvReac Type Severity Reaction Status Date / Time dipyridamole AdvReac Nausea & Verified 02/07/19 17:32 [From Persantine] Vomiting Iodinated Contrast- Oral and AdvReac Nausea & Verified 02/07/19 17:32 IV Dye Vomiting [Iodinated Contrast Media - IV Dye] morphine AdvReac Nausea & Verified 02/07/19 17:32 Vomiting Review of Systems ROS Statement: Those systems with pertinent positive or pertinent negative responses have been documented in the HPI. ROS Other: All systems not noted in ROS Statement are negative. Past Medical History Past Medical History: Chest Pain / Angina, Diabetes Mellitus, GERD/Reflux, Hyperlipidemia, Hypertension, Sleep Apnea/CPAP/BIPAP, Syncope Additional Past Medical History / Comment(s): IDDM, ERIKA cannot tolerate CPAP, varicose veins, hiatal hernia, constipation occas bleeding with stools, hemorrhoids, hyperkalemia History of Any Multi-Drug Resistant Organisms: MRSA Date of last positivie culture/infection: November 2017 MDRO Source:: Abdomen at [facility] per Dr. Verdin Past Surgical History: Back Surgery, Cholecystectomy, Heart Catheterization, Hernia Repair Additional Past Surgical History / Comment(s): arthroscopy right knee. bilateral cataracts,jeancarlos inguinal hernia repair, alban funloplasty Past Anesthesia/Blood Transfusion Reactions: No Reported Reaction, Motion Sickness Past Psychological History: Anxiety Smoking Status: Never smoker Past Alcohol Use History: Rare Past Drug Use History: None Reported - Past Family History Mother Additional Family Medical History / Comment(s): HAD PACEMAKER, age 86 Father Family Medical History: Dementia General Exam Limitations: no limitations General appearance: alert, in no apparent distress Head exam: Present: atraumatic, normocephalic, normal inspection Eye exam: Present: normal appearance, PERRL, EOMI. Absent: scleral icterus, conjunctival injection, periorbital swelling ENT exam: Present: normal exam, mucous membranes moist Neck exam: Present: normal inspection. Absent: tenderness, meningismus, lymphadenopathy Respiratory exam: Present: normal lung sounds bilaterally. Absent: respiratory distress, wheezes, rales, rhonchi, stridor Cardiovascular Exam: Present: regular rate, normal rhythm, normal heart sounds. Absent: systolic murmur, diastolic murmur, rubs, gallop, clicks GI/Abdominal exam: Present: soft, normal bowel sounds. Absent: distended, tenderness, guarding, rebound, rigid Extremities exam: Present: normal inspection, full ROM, normal capillary refill. Absent: tenderness, pedal edema, joint swelling, calf tenderness Back exam: Present: normal inspection, tenderness (paraspinal tenderness on the left and right sides near L2-L4. 5/5 muscle strength in the bilaterally lower extremities) Neurological exam: Present: alert, oriented X3, CN II-XII intact, normal gait, reflexes normal, other (no pronator drift. no truncal ataxia. Finger to nose is symmetric) Psychiatric exam: Present: normal affect, normal mood Skin exam: Present: warm, dry, intact, normal color, abrasion (right anterior pal. No cellulitic changes. ). Absent: rash Course Vital Signs 02/07/19 02/07/19 02/07/19 17:01 18:03 18:30 Temperature 98.7 F Pulse Rate 69 66 Respiratory 20 21 Rate Blood Pressure 154/91 169/94 O2 Sat by Pulse 97 98 Oximetry 02/07/19 20:00 Temperature Pulse Rate 69 Respiratory 20 Rate Blood Pressure 167/92 O2 Sat by Pulse 96 Oximetry EKG Findings - EKG Comments: EKG Findings:: EKG demonstrates a normal sinus rhythm with a ventricular rate of 64. UT interval 156. QRS 98. QTC 441. There are no acute ST segment elevations or depressions concerning for ischemic changes Medical Decision Making - Medical Decision Making Upon arrival the patient is placed in room 11. He is hooked up to continuous pulse ox and desk monitor. A 12-lead EKG is performed on the patient which demonstrated normal sinus rhythm. I did recommend laboratory studies. I also recommended a CT of the patient's sinuses and cervical spine. I also recommended a chest, pelvis, lumbar spine and right tib-fib x-ray. I reviewed the patient's results and discuss them with him. It does demonstrate right- sided sinusitis. Because the patient's symptoms of sinus pressure, I did recommend treatment with an antibiotic. The patient is currently taking Bactrim. He is unsure why he is taking this medication. I did recommend transferring the patient to Levaquin. I did recommend that he sees his [id number] cold medications. I did provide the patient Antivert while within the emergency room and he did have improvement in his symptoms. I do believe the patient needs to follow up with cardiology and neurology. I also recommended that he see ENT for his sinus and ear pain as well as vertiginous symptoms. The patient began a prescription for Levaquin. I gave him INFORMATION for Dr. Garcia's office. He does have a follow-up appointment with his primary care doctor tomorrow. He must follow-up without fail. Return parameters were discussed. The patient was then discharged home in stable condition - Lab Data Result diagrams: 02/07/19 17:54 02/07/19 17:54 Lab Results 02/07/19 02/07/19 Range/Units 17:54 17:54 WBC 8.8 (3.8-10.6) k/uL RBC 4.03 L (4.30-5.90) m/uL Hgb 13.3 (13.0-17.5) gm/dL Hct 38.0 L (39.0-53.0) % MCV 94.2 (80.0-100.0) fL MCH 32.9 (25.0-35.0) pg MCHC 35.0 (31.0-37.0) g/dL RDW 13.0 (11.5-15.5) % Plt Count 187 (150-450) k/uL Neutrophils % 57 % Lymphocytes % 27 % Monocytes % 5 % Eosinophils % 7 % Basophils % 1 % Neutrophils # 5.0 (1.3-7.7) k/uL Lymphocytes # 2.4 (1.0-4.8) k/uL Monocytes # 0.5 (0-1.0) k/uL Eosinophils # 0.6 (0-0.7) k/uL Basophils # 0.1 (0-0.2) k/uL Sodium 132 L (137-145) mmol/L Potassium 5.0 (3.5-5.1) mmol/L Chloride 100 (98-107) mmol/L Carbon Dioxide 24 (22-30) mmol/L Anion Gap 8 mmol/L BUN 11 (9-20) mg/dL Creatinine 0.85 (0.66-1.25) mg/dL Est GFR (CKD-EPI)AfAm >90 (>60 ml/min/1.73 sqM) Est GFR (CKD-EPI)NonAf 90 (>60 ml/min/1.73 sqM) Glucose 134 H (74-99) mg/dL Calcium 9.2 (8.4-10.2) mg/dL Total Bilirubin 0.4 (0.2-1.3) mg/dL AST 24 (17-59) U/L ALT 15 L (21-72) U/L Alkaline Phosphatase 66 (38-126) U/L Total Protein 6.9 (6.3-8.2) g/dL Albumin 4.2 (3.5-5.0) g/dL Disposition Clinical Impression: Sinus pain, Fall, Vertigo Disposition: HOME SELF-CARE Condition: Stable Instructions (If sedation given, give patient instructions): Sinusitis (ED), Dizziness (ED) Additional Instructions: Please follow-up with your doctor at your scheduled appointment tomorrow. Return to the emergency room for any new or worsening symptoms. 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
[2019-02-07 20:03] VITALS: BP 167/92; PULSE 69; RESP 20
== END 2019-02-07 20:10 | disposition home or self-care (01) ==
LOC: EC 16:48
DX: J32.9 Chronic sinusitis, unspecified (principal); R42 Dizziness and giddiness; H92.09 Otalgia, unspecified ear; H91.90 Unspecified hearing loss, unspecified ear; M54.5 Low back pain; S80.811A Abrasion, right lower leg, initial encounter; E11.9 Type 2 diabetes mellitus without complications; K21.9 Gastro-esophageal reflux disease without esophagitis; I10 Essential (primary) hypertension; F41.9 Anxiety disorder, unspecified; G47.33 Obstructive sleep apnea (adult) (pediatric); Z99.89 Dependence on other enabling machines and devices; Z86.14 Personal history of Methicillin resistant Staphylococcus aureus infection; Z98.890 Other specified postprocedural states; Z95.818 Presence of other cardiac implants and grafts; Z79.84 Long term (current) use of oral hypoglycemic drugs; Z79.891 Long term (current) use of opiate analgesic; Z79.899 Other long term (current) drug therapy; Z88.8 Allergy status to other drugs, medicaments and biological substances; Z91.041 Radiographic dye allergy status; Z88.5 Allergy status to narcotic agent
CPT/HCPCS: 36415; 70486; 71046; 72100; 72125; 72170; 80053; 85025; 93005; 99284

== ENCOUNTER 2019-02-20 15:26 | Inpatient (IN) | payer MEDICARE, OTHER ==
[2019-02-20] MEDS ORDERED: SODIUM CHLORIDE 0.9% 1,000 ML IV STA (16:41)
[2019-02-20 17:20] LABS: Basophils # (A) 0.1 k/uL (0-0.2); Basophils % (A) 1 %; Eosinophils # (A) 0.5 k/uL (0-0.7); Eosinophils % (A) 5 %; HCT 40.7 % (39.0-53.0); HGB 13.9 gm/dL (13.0-17.5); Lymphocytes # (A) 2.6 k/uL (1.0-4.8); Lymphocytes % (A) 26 %; MCH 32.2 pg (25.0-35.0); MCHC 34.3 g/dL (31.0-37.0); Mean Platelet Volume 7.9; Monocytes # (A) 0.5 k/uL (0-1.0); Monocytes % (A) 5 %; Neutrophils % (A) 61 %; Platelet Count 202 k/uL (150-450); RBC 4.33 m/uL (4.30-5.90); WBC 9.9 k/uL (3.8-10.6)
[2019-02-20] MEDS: SODIUM CHLORIDE 0.9% 1,000 ML IV STA ×2 (17:26→22:56)
[2019-02-20 17:32] LABS: ALT 20 U/L (21-72); AST 25 U/L (17-59); African American GFR (CKD) >90 (>60 ml/min/1.73 sqM); Albumin 4.6 g/dL (3.5-5.0); Alkaline Phosphatase 69 U/L (38-126); Anion Gap 11 mmol/L; Blood Urea Nitrogen 10 mg/dL (9-20); Calcium 9.8 mg/dL (8.4-10.2); Carbon Dioxide 26 mmol/L (22-30); Chloride 101 mmol/L (98-107); Creatine Kinase 147 U/L (55-170); Glucose 123 mg/dL (74-99); Magnesium 1.7 mg/dL (1.6-2.3); Phosphorus 3.6 mg/dL (2.5-4.5); Potassium 4.2 mmol/L (3.5-5.1); Sodium 138 mmol/L (137-145); Total Bilirubin 0.5 mg/dL (0.2-1.3); Total Protein 7.4 g/dL (6.3-8.2)
[2019-02-20 17:36] LABS: INR 0.9 (<1.2); Partial Thromboplastin Time 25.9 sec (22.0-30.0); Prothrombin Time 10.2 sec (9.0-12.0)
--- NOTE | 2019-02-20 17:42 | ED ---
Weakness HPI - General Chief complaint: Weakness Stated complaint: fatigue/poss flu/high sugar Time Seen by Provider: 02/20/19 16:19 Source: patient, RN notes reviewed, old records reviewed Mode of arrival: wheelchair Limitations: no limitations - History of Present Illness Initial comments: This is a 60-year-old male the ER for evaluation patient coming in for reevaluation of weakness and fatigue. Patient denying any complaints aside from that. is providing majority of history states patient has been sleeping more than normal please patient has had fever. Patient was seen by his primary care and sent to ER for evaluation. Patient denies headache shortness of breath chest pain abdominal pain. No sore throat, no rash. MD Complaint: generalized weakness -: days(s) Location: generalized Severity: moderate Severity scale (1-10): 5 Consistency: constant Improves with: none Worsens with: movement, exertion Context: recent illness Associated Symptoms: loss of appetite - Related Data Home Medications Medication Instructions Recorded Confirmed Citalopram Hydrobromide [CeleXA] 20 mg PO DAILY 09/13/17 02/20/19 Magnesium Oxide [Mag-Ox] 400 mg PO DAILY 09/13/17 02/20/19 Multivitamins, Thera [Multivitamin 1 tab PO DAILY 09/13/17 02/20/19 (formulary)] Ranitidine HCl [Zantac] 150 mg PO BID 09/13/17 02/20/19 metFORMIN HCL [Glucophage] 500 mg PO DAILY 09/13/17 02/20/19 Dicyclomine [Bentyl] 10 mg PO DAILY 01/22/19 02/20/19 HYDROcodone/APAP 5-325MG [[place] 1 tab PO BID 01/22/19 02/20/19 5-325] Lisinopril 20 mg PO DAILY 02/07/19 02/20/19 Previous Rx's Medication Instructions Recorded Atorvastatin [Lipitor] 20 mg PO DAILY #30 tab 12/20/17 Nitroglycerin Sl Tabs [Nitrostat] 0.4 mg SUBLINGUAL Q5M PRN tab 12/29/17 amLODIPine [Norvasc] 5 mg PO DAILY tab 12/29/17 Allergies Allergy/AdvReac Type Severity Reaction Status Date / Time dipyridamole AdvReac Nausea & Verified 02/20/19 16:31 [From Persantine] Vomiting Iodinated Contrast- Oral and AdvReac Nausea & Verified 02/20/19 16:31 IV Dye Vomiting [Iodinated Contrast Media - IV Dye] morphine AdvReac Nausea & Verified 02/20/19 16:31 Vomiting Review of Systems ROS Statement: Those systems with pertinent positive or pertinent negative responses have been documented in the HPI. ROS Other: All systems not noted in ROS Statement are negative. Past Medical History Past Medical History: Chest Pain / Angina, Diabetes Mellitus, GERD/Reflux, Hyperlipidemia, Hypertension, Sleep Apnea/CPAP/BIPAP, Syncope Additional Past Medical History / Comment(s): IDDM, ERIKA cannot tolerate CPAP, varicose veins, hiatal hernia, constipation occas bleeding with stools, hemorrhoids, hyperkalemia History of Any Multi-Drug Resistant Organisms: MRSA Date of last positivie culture/infection: November 2017 MDRO Source:: Abdomen at [facility] per Dr. Verdin Past Surgical History: Back Surgery, Cholecystectomy, Heart Catheterization, Hernia Repair Additional Past Surgical History / Comment(s): arthroscopy right knee. bilateral cataracts,jeancarlos inguinal hernia repair, alban funloplasty Past Anesthesia/Blood Transfusion Reactions: No Reported Reaction, Motion Sickness Past Psychological History: Anxiety Smoking Status: Never smoker Past Alcohol Use History: Rare Past Drug Use History: None Reported - Past Family History Mother Additional Family Medical History / Comment(s): HAD PACEMAKER, age 86 Father Family Medical History: Dementia General Exam Limitations: no limitations General appearance: alert, in no apparent distress Head exam: Present: atraumatic, normocephalic, normal inspection Eye exam: Present: normal appearance, PERRL, EOMI. Absent: scleral icterus, conjunctival injection, periorbital swelling ENT exam: Present: normal exam, mucous membranes moist Neck exam: Present: normal inspection. Absent: tenderness, meningismus, lymphadenopathy Respiratory exam: Present: normal lung sounds bilaterally. Absent: respiratory distress, wheezes, rales, rhonchi, stridor Cardiovascular Exam: Present: regular rate, normal rhythm, normal heart sounds. Absent: systolic murmur, diastolic murmur, rubs, gallop, clicks GI/Abdominal exam: Present: soft, normal bowel sounds. Absent: distended, tenderness, guarding, rebound, rigid Extremities exam: Present: normal inspection, full ROM, normal capillary refill. Absent: tenderness, pedal edema, joint swelling, calf tenderness Back exam: Present: normal inspection Neurological exam: Present: alert, oriented X3, CN II-XII intact Psychiatric exam: Present: normal affect, normal mood Skin exam: Present: warm, dry, intact, normal color. Absent: rash Course Vital Signs 02/20/19 02/20/19 02/20/19 15:45 18:34 18:51 Temperature 98.4 F Pulse Rate 78 78 69 Respiratory 18 18 18 Rate Blood Pressure 166/94 177/87 166/94 O2 Sat by Pulse 96 96 94 L Oximetry - Reevaluation(s) Reevaluation #1: 02/20/19 17:41 Medical record is reviewed Reevaluation #2: 02/20/19 19:49 Family patient still feeling weak still feeling very dizzy - Consultations Consultation #1: Spoke with Dr. Gaona we'll observe and have neurology consult EKG Findings - EKG Comments: EKG Findings:: EKG shows sinus rhythm rate of 66, ND 150, QRS 90, QTc 431 Medical Decision Making - Medical Decision Making 68 male the ER for evaluation patient is ER for evaluation persistent weakness and dizziness. Patient be admitted for neurology evaluation continued hydration - Lab Data Result diagrams: 02/20/19 17:05 02/20/19 17:05 Lab Results 02/20/19 02/20/19 02/20/19 Range/Units 17:05 17:05 17:05 WBC 9.9 (3.8-10.6) k/uL RBC 4.33 (4.30-5.90) m/uL Hgb 13.9 (13.0-17.5) gm/dL Hct 40.7 (39.0-53.0) % MCV 94.0 (80.0-100.0) fL MCH 32.2 (25.0-35.0) pg MCHC 34.3 (31.0-37.0) g/dL RDW 13.0 (11.5-15.5) % Plt Count 202 (150-450) k/uL Neutrophils % 61 % Lymphocytes % 26 % Monocytes % 5 % Eosinophils % 5 % Basophils % 1 % Neutrophils # 6.0 (1.3-7.7) k/uL Lymphocytes # 2.6 (1.0-4.8) k/uL Monocytes # 0.5 (0-1.0) k/uL Eosinophils # 0.5 (0-0.7) k/uL Basophils # 0.1 (0-0.2) k/uL PT (9.0-12.0) sec INR (<1.2) APTT (22.0-30.0) sec Sodium 138 (137-145) mmol/L Potassium 4.2 (3.5-5.1) mmol/L Chloride 101 (98-107) mmol/L Carbon Dioxide 26 (22-30) mmol/L Anion Gap 11 mmol/L BUN 10 (9-20) mg/dL Creatinine 0.84 (0.66-1.25) mg/dL Est GFR (CKD-EPI)AfAm >90 (>60 ml/min/1.73 sqM) Est GFR (CKD-EPI)NonAf >90 (>60 ml/min/1.73 sqM) Glucose 123 H (74-99) mg/dL Plasma Lactic Acid [place] 1.6 (0.7-2.0) mmol/L Calcium 9.8 (8.4-10.2) mg/dL Phosphorus 3.6 (2.5-4.5) mg/dL Magnesium 1.7 (1.6-2.3) mg/dL Total Bilirubin 0.5 (0.2-1.3) mg/dL AST 25 (17-59) U/L ALT 20 L (21-72) U/L Alkaline Phosphatase 69 (38-126) U/L Creatine Kinase 147 (55-170) U/L Troponin I (0.000-0.034) ng/mL NT-Pro-B Natriuret Pep pg/mL Total Protein 7.4 (6.3-8.2) g/dL Albumin 4.6 (3.5-5.0) g/dL TSH 2.380 (0.465-4.680) mIU/L Urine Color Urine Appearance (Clear) Urine pH (5.0-8.0) Ur Specific [place] (1.001-1.035) Urine Protein (Negative) Urine Glucose (UA) (Negative) Urine Ketones (Negative) Urine Blood (Negative) Urine Nitrite (Negative) Urine Bilirubin (Negative) Urine Urobilinogen (<2.0) mg/dL Ur Leukocyte Esterase (Negative) Influenza Type A RNA (Not Detectd) Influenza Type B (PCR) (Not Detectd) 02/20/19 02/20/19 02/20/19 Range/Units 17:05 17:05 17:10 WBC (3.8-10.6) k/uL RBC (4.30-5.90) m/uL Hgb (13.0-17.5) gm/dL Hct (39.0-53.0) % MCV (80.0-100.0) fL MCH (25.0-35.0) pg MCHC (31.0-37.0) g/dL RDW (11.5-15.5) % Plt Count (150-450) k/uL Neutrophils % % Lymphocytes % % Monocytes % % Eosinophils % % Basophils % % Neutrophils # (1.3-7.7) k/uL Lymphocytes # (1.0-4.8) k/uL Monocytes # (0-1.0) k/uL Eosinophils # (0-0.7) k/uL Basophils # (0-0.2) k/uL PT 10.2 (9.0-12.0) sec INR 0.9 (<1.2) APTT 25.9 (22.0-30.0) sec Sodium (137-145) mmol/L Potassium (3.5-5.1) mmol/L Chloride (98-107) mmol/L Carbon Dioxide (22-30) mmol/L Anion Gap mmol/L BUN (9-20) mg/dL Creatinine (0.66-1.25) mg/dL Est GFR (CKD-EPI)AfAm (>60 ml/min/1.73 sqM) Est GFR (CKD-EPI)NonAf (>60 ml/min/1.73 sqM) Glucose (74-99) mg/dL Plasma Lactic Acid [place] (0.7-2.0) mmol/L Calcium (8.4-10.2) mg/dL Phosphorus (2.5-4.5) mg/dL Magnesium (1.6-2.3) mg/dL Total Bilirubin (0.2-1.3) mg/dL AST (17-59) U/L ALT (21-72) U/L Alkaline Phosphatase (38-126) U/L Creatine Kinase (55-170) U/L Troponin I <0.012 (0.000-0.034) ng/mL NT-Pro-B Natriuret Pep 161 pg/mL Total Protein (6.3-8.2) g/dL Albumin (3.5-5.0) g/dL TSH (0.465-4.680) mIU/L Urine Color Urine Appearance (Clear) Urine pH (5.0-8.0) Ur Specific [place] (1.001-1.035) Urine Protein (Negative) Urine Glucose (UA) (Negative) Urine Ketones (Negative) Urine Blood (Negative) Urine Nitrite (Negative) Urine Bilirubin (Negative) Urine Urobilinogen (<2.0) mg/dL Ur Leukocyte Esterase (Negative) Influenza Type A RNA (Not Detectd) Influenza Type B (PCR) (Not Detectd) 02/20/19 02/20/19 Range/Units 18:00 18:29 WBC (3.8-10.6) k/uL RBC (4.30-5.90) m/uL Hgb (13.0-17.5) gm/dL Hct (39.0-53.0) % MCV (80.0-100.0) fL MCH (25.0-35.0) pg MCHC (31.0-37.0) g/dL RDW (11.5-15.5) % Plt Count (150-450) k/uL Neutrophils % % Lymphocytes % % Monocytes % % Eosinophils % % Basophils % % Neutrophils # (1.3-7.7) k/uL Lymphocytes # (1.0-4.8) k/uL Monocytes # (0-1.0) k/uL Eosinophils # (0-0.7) k/uL Basophils # (0-0.2) k/uL PT (9.0-12.0) sec INR (<1.2) APTT (22.0-30.0) sec Sodium (137-145) mmol/L Potassium (3.5-5.1) mmol/L Chloride (98-107) mmol/L Carbon Dioxide (22-30) mmol/L Anion Gap mmol/L BUN (9-20) mg/dL Creatinine (0.66-1.25) mg/dL Est GFR (CKD-EPI)AfAm (>60 ml/min/1.73 sqM) Est GFR (CKD-EPI)NonAf (>60 ml/min/1.73 sqM) Glucose (74-99) mg/dL Plasma Lactic Acid [place] (0.7-2.0) mmol/L Calcium (8.4-10.2) mg/dL Phosphorus (2.5-4.5) mg/dL Magnesium (1.6-2.3) mg/dL Total Bilirubin (0.2-1.3) mg/dL AST (17-59) U/L ALT (21-72) U/L Alkaline Phosphatase (38-126) U/L Creatine Kinase (55-170) U/L Troponin I (0.000-0.034) ng/mL NT-Pro-B Natriuret Pep pg/mL Total Protein (6.3-8.2) g/dL Albumin (3.5-5.0) g/dL TSH (0.465-4.680) mIU/L Urine Color Light Yellow Urine Appearance Clear (Clear) Urine pH 6.0 (5.0-8.0) Ur Specific [place] 1.009 (1.001-1.035) Urine Protein Negative (Negative) Urine Glucose (UA) Trace H (Negative) Urine Ketones Negative (Negative) Urine Blood Negative (Negative) Urine Nitrite Negative (Negative) Urine Bilirubin Negative (Negative) Urine Urobilinogen <2.0 (<2.0) mg/dL Ur Leukocyte Esterase Negative (Negative) Influenza Type A RNA Not Detected (Not Detectd) Influenza Type B (PCR) Not Detected (Not Detectd) - Radiology Data Radiology results: report reviewed (CT brain and chest x-ray negative for acute disease), image reviewed Disposition Clinical Impression: Dehydration, Weakness, Near syncope, Dizziness Disposition: ADMITTED IP TO THIS HOSP Condition: Fair Is patient prescribed a controlled substance at d/c from ED?: No Referrals: Hawk Gaona MD [Primary Care Provider] - 1-2 days
--- NOTE | 2019-02-20 17:59 | XR ---
EXAMINATION TYPE: XR chest 2V DATE OF EXAM: 02/20/2019 COMPARISON: 02/07/2019 HISTORY: Weakness TECHNIQUE: Frontal and lateral views of the chest are obtained. FINDINGS: There is no heart failure nor confluent pneumonic infiltrate. Heart size is normal. There are chest leads. Bony thorax is intact. IMPRESSION: No active cardiopulmonary disease. Normal heart. No change.
[2019-02-20 18:41] LABS: Appearance,Urine Clear (Clear); Bilirubin,Urine Negative (Negative); Blood,Urine Negative (Negative); Color,Urine Light Yellow; Glucose,Urine (UA) Trace (Negative); Ketones,Urine Negative (Negative); Leukocyte Esterase,Urine Negative (Negative); Nitrite,Urine Negative (Negative); Protein,Urine Negative (Negative); Specific Gravity,Urine 1.009 (1.001-1.035); Urobilinogen,Urine <2.0 mg/dL (<2.0)
[2019-02-20] MEDS ORDERED: ASPIRIN 325 MG TAB PO STA (19:44)
--- NOTE | 2019-02-20 20:26 | CT ---
EXAMINATION TYPE: CT brain wo con DATE OF EXAM: 02/20/2019 COMPARISON: 01/24/2019 HISTORY: Weakness, fatigue. CT DLP: 1072.4 mGycm Automated exposure control for dose reduction was used. FINDINGS: There is cerebral cortical atrophy. There is no mass effect nor midline shift. There is no sign of in tracranial hemorrhage. There is minimal white matter hypodensity. The calvarium is intact. 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 NO ACUTE INTRACRANIAL ABNORMALITY. NO SIGNIF ICANT CHANGE. MILD RIGHT MAXILLARY SINUSITIS NOTED.
[2019-02-20] MEDS: SODIUM CHLORIDE 0.9% 1,000 ML IV SCH (22:57)
[2019-02-20 23:03] LABS: Glucose,Whole Blood 144 mg/dL (75-99)
[2019-02-20] MEDS ORDERED: NITROGLYCERIN SL TABS 0.4 MG TAB SUBLINGUAL PRN (23:21)
[2019-02-20] MEDS: LISINOPRIL 20 MG TAB PO SCH (23:42)
[2019-02-20] MEDS: HYDROcodone/APAP 5-325MG 1 EACH TAB PO SCH (23:42)
--- NOTE | 2019-02-21 00:18 | US ---
EXAMINATION TYPE: US carotid duplex BILAT DATE OF EXAM: 02/20/2019 COMPARISON: US 01/25/2019 CLINICAL HISTORY: Stenosis. Stenosis per order. Weakness, dizziness, HTN. HX recent syncopal episode. EXAM MEASUREMENTS: RIGHT: Peak Systolic Velocity (PSV) cm/sec ----- Right CCA: 71.3 ----- Right ICA: 58.1 ----- Right ECA: 59.0 ICA/CCA ratio: 0.8 RIGHT: End Diastole cm/sec ----- Right CCA: 13.1 ----- Right ICA: 8.7 ----- Right ECA: 9.2 LEFT: Peak Systolic Velocity (PSV) cm/sec ----- Left CCA: 57.2 ----- Left ICA: 78.2 ----- Left ECA: 78.8 ICA/CCA ratio: 1.4 LEFT: End Diastole cm/sec ----- Left CCA: 14.5 ----- Left ICA: 18.0 ----- Left ECA: 9.9 VERTEBRALS (direction of flow): Right Vertebral: Antegrade Left Vertebral: Antegrade Rhythm: Normal Wall changes seen bilateral carotid arteries. Plaque seen bilateral carotid bifurcations. Left ICA ap pears tortuous. No elevated velocities obtained. IMPRESSION: There is antegrade flow in the vertebral arteries. There is mild plaque in the carotid a rteries bilaterally. Images in measurements suggest less than 25% stenosis in both internal carotid a rteries. No adverse change compared to last exam. Criteria for Assigning % of Stenosis / Diameter reduction (Estimation based on the indirect measurements of the internal carotid artery velocities (ICA PSV). 1. Normal (no stenosis)=ICA PSV < 125 cm/s: ratio < 2.0: ICA EDV<40 cm/s. 2. Less than 50% stenosis=ICA PSV < 125 cm/s: ratio < 2.0: ICA EDV<40 cm/s. 3. 50 to 69% stenosis=ICA PSV of 125 to 230 cm/s: ration 2.0 ? 4.0: ICA EDV 40-100 cm/s. 4. Greater than 70% stenosis to near occlusion= ICA PSV > 230 cm/s: ratio > 4.0: ICA EDV > 100 cm/s. 5. Near occlusion= ICA PSV velocities may be low or undetectable: variable ratio and ICA EDV. 6. Total occlusion=unable to detect flow.
[2019-02-21 00:32] LABS: EBV-EA (IgG) <0.2 AI; EBV-EBNA(IgG) 0.2 AI; EBV-VCA (IgG) >8.0 AI
[2019-02-21 00:40] LABS: EBV-VCA (IgM) <0.2 AI
[2019-02-21 02:40] LABS: Glucose,Whole Blood 123 mg/dL (75-99)
[2019-02-21 07:10] LABS: Glucose,Whole Blood 94 mg/dL (75-99)
[2019-02-21] MEDS: INSULIN ASPART (NovoLOG) 100 UNIT/ML VIAL SQ SCH ×4 (08:28→20:41)
[2019-02-21 08:39] LABS: Basophils % (A) 1 %; Eosinophils # (A) 0.5 k/uL (0-0.7); Eosinophils % (A) 7 %; HCT 37.2 % (39.0-53.0); HGB 12.5 gm/dL (13.0-17.5); Lymphocytes # (A) 2.1 k/uL (1.0-4.8); Lymphocytes % (A) 29 %; MCH 32.3 pg (25.0-35.0); MCHC 33.6 g/dL (31.0-37.0); MCV 96.1 fL (80.0-100.0); Mean Platelet Volume 8.4; Monocytes # (A) 0.4 k/uL (0-1.0); Monocytes % (A) 6 %; Neutrophils % (A) 55 %; Platelet Count 201 k/uL (150-450); RBC 3.87 m/uL (4.30-5.90); RDW 14.4 % (11.5-15.5); WBC 7.2 k/uL (3.8-10.6)
[2019-02-21 08:53] LABS: ALT 19 U/L (21-72); AST 23 U/L (17-59); African American GFR (CKD) >90 (>60 ml/min/1.73 sqM); Albumin 3.5 g/dL (3.5-5.0); Alkaline Phosphatase 53 U/L (38-126); Anion Gap 7 mmol/L; Blood Urea Nitrogen 11 mg/dL (9-20); Calcium 8.7 mg/dL (8.4-10.2); Carbon Dioxide 26 mmol/L (22-30); Chloride 105 mmol/L (98-107); Glucose 92 mg/dL (74-99); Potassium 4.2 mmol/L (3.5-5.1); Sodium 138 mmol/L (137-145); Total Bilirubin 0.6 mg/dL (0.2-1.3)
[2019-02-21] MEDS: SODIUM CHLORIDE 0.9% 1,000 ML IV SCH ×2 (09:03→17:48)
[2019-02-21] MEDS: ASPIRIN 325 MG TAB PO SCH (09:04)
[2019-02-21] MEDS: HYDROcodone/APAP 5-325MG 1 EACH TAB PO SCH ×2 (09:04→20:40)
[2019-02-21] MEDS: FAMOTIDINE 20 MG TAB PO SCH ×2 (09:04→20:40)
[2019-02-21] MEDS: MULTIVITAMINS, THERA 1 EACH TAB PO SCH (09:04)
[2019-02-21] MEDS: LISINOPRIL 20 MG TAB PO SCH (09:05)
[2019-02-21] MEDS: MAGNESIUM OXIDE 400 MG TAB PO SCH (09:06)
[2019-02-21] MEDS: DICYCLOMINE 10 MG CAP PO SCH (09:06)
[2019-02-21] MEDS: ATORVASTATIN 20 MG TAB PO SCH (09:06)
[2019-02-21] MEDS: CITALOPRAM HYDROBROMIDE 20 MG TAB PO SCH (09:06)
[2019-02-21] MEDS: amLODIPine 5 MG TAB PO SCH (09:06)
[2019-02-21] MEDS: metFORMIN 500 MG TAB PO SCH (09:06)
--- NOTE | 2019-02-21 09:58 | P.CNNES ---
History of Present Illness Consult date: 02/21/19 Requesting physician: Lavell Mckeon Reason for Consult: Dizziness Chief complaint: Dizziness History of Present Illness: This is a 68 RH male whom I saw just last month for the same presentation of dizziness and near syncope. He had MRI Brain, carotid duplex and TTE. He states in the past he also wore a cardiac event monitor for a month that was reportedly unrevealing. He was visiting his PCP yesterday and described these ongoing episodes of dizziness, feeling faint, short of breath and diaphoretic. He did not actually lose consciousness. PCP sent him to the hospital to get further testing, and he had repeat CT Head and carotid duplex that are stable. He c/o a nagging pain at the back of the cranium in the occipital area and is concerned about a potential pinched nerve that may cause his symptoms. Otherwise, his symptoms are essentially unchanged compared with when I last saw him. Denies diplopia, amaurosis, facial numbness/droop, dysarthria, dysphagia, aphasia, alternating or hemianesthesia or paresis, bowel/bladder incontinence, seizure- like activity or ataxia. Review of Systems I have performed a 14-point organ ROS with patient; pertinents are as per HPI. Past Medical History Past Medical History: Chest Pain / Angina, Diabetes Mellitus, GERD/Reflux, Hyperlipidemia, Hypertension, Sleep Apnea/CPAP/BIPAP, Syncope Additional Past Medical History / Comment(s): IDDM, ERIKA cannot tolerate CPAP, varicose veins, hiatal hernia, constipation occas bleeding with stools, hemorrhoids, hyperkalemia History of Any Multi-Drug Resistant Organisms: MRSA Date of last positivie culture/infection: November 2017 MDRO Source:: Abdomen at [facility] per Dr. Verdin Past Surgical History: Back Surgery, Cholecystectomy, Heart Catheterization, Hernia Repair Additional Past Surgical History / Comment(s): arthroscopy right knee. bilateral cataracts, jeancarlos inguinal hernia repair, alban funloplasty(stomach wrapped) Past Anesthesia/Blood Transfusion Reactions: No Reported Reaction Past Psychological History: Anxiety Additional Psychological History / Comment(s): Pt resides with his spouse. He is independent. has a glucometer and bp machine. Smoking Status: Never smoker Past Alcohol Use History: Occasional Additional Past Alcohol Use History / Comment(s): Occasional beer. Past Drug Use History: None Reported - Past Family History Mother Family Medical History: Dementia Additional Family Medical History / Comment(s): HAD PACEMAKER, age 86, Father Family Medical History: Dementia Additional Family Medical History / Comment(s): Alzhemeris Medications and Allergies Home Medications Medication Instructions Recorded Confirmed Type Citalopram Hydrobromide [CeleXA] 20 mg PO DAILY 09/13/17 02/20/19 History Magnesium Oxide [Mag-Ox] 400 mg PO DAILY 09/13/17 02/20/19 History Multivitamins, Thera [Multivitamin 1 tab PO DAILY 09/13/17 02/20/19 History (formulary)] Ranitidine HCl [Zantac] 150 mg PO BID 09/13/17 02/20/19 History metFORMIN HCL [Glucophage] 500 mg PO DAILY 09/13/17 02/20/19 History Atorvastatin [Lipitor] 20 mg PO DAILY #30 tab 12/20/17 02/20/19 Rx Nitroglycerin Sl Tabs [Nitrostat] 0.4 mg SUBLINGUAL Q5M PRN tab 12/29/17 02/20/19 Rx amLODIPine [Norvasc] 5 mg PO DAILY tab 12/29/17 02/20/19 Rx Dicyclomine [Bentyl] 10 mg PO DAILY 01/22/19 02/20/19 History HYDROcodone/APAP 5-325MG [[place] 1 tab PO BID 01/22/19 02/20/19 History 5-325] Lisinopril 20 mg PO DAILY 02/07/19 02/20/19 History Allergies Allergy/AdvReac Type Severity Reaction Status Date / Time dipyridamole AdvReac Nausea & Verified 02/20/19 16:31 [From Persantine] Vomiting Iodinated Contrast- Oral and AdvReac Nausea & Verified 02/20/19 16:31 IV Dye Vomiting [Iodinated Contrast Media - IV Dye] morphine AdvReac Nausea & Verified 02/20/19 16:31 Vomiting Physical Examination - Vital Signs Vital Signs: Vital Signs Temp Pulse Pulse Resp BP BP Pulse Ox 02/21/19 04:54 97.8 F 60 16 165/72 96 02/20/19 22:30 98.2 F 78 16 183/89 97 02/20/19 21:32 98.1 F 87 18 128/87 99 02/20/19 18:51 69 18 166/94 94 L 02/20/19 18:34 78 18 177/87 96 02/20/19 15:45 98.4 F 78 18 166/94 96 Intake and Output 02/20/19 02/21/19 02/21/19 22:59 06:59 14:59 Intake Total 700 800 Balance 700 800 Intake: Intake, IV Titration 100 800 Amount Sodium Chloride 0.9% 1, 100 800 000 ml @ 100 mls/hr IV . Q10H TACOS Rx#:[id number] Oral 600 Other: Voiding Method Urinal # Voids 2 6 Weight 87.997 kg Gen NAD Pleasant and cooperative HEENT NCAT Sclera without icterus O/P clear Neck Supple No carotid bruit Cor RRR no m/r/g Lungs CTAB Abd Soft NTND +BS Ext Warm to touch No edema Neuro MS A+Ox4 Normal fluency Able to follow all commands CN PERRL VFF no APD EOMI no nystagmus or RADHA No facial asymmetry [place]'s symmetric Hearing intact to normal voice bilaterally Speech not dysarthric Equal elevation of palate Tongue midline Sym shrug and SCM bilaterally Motor Normal bulk/tone No pronator drift or tremors Strength 5/5 sym throughout Sens Intact to LT x4 No neglect Coord No dysmetria on FTN bilaterally DTRs 2+/4 sym throughout Toes downgoing bilaterally No clonus at achilles Gait Deferred Results - Laboratory Findings CBC and BMP: 02/21/19 07:25 02/21/19 07:25 Abnormal Lab Findings: Abnormal Labs 02/20/19 02/20/19 02/20/19 17:05 17:05 18:29 RBC Hgb Hct Glucose 123 H POC Glucose (mg/dL) ALT 20 L Total Protein Urine Glucose (UA) Trace H EBV Capsid Ag IgG Intrp POSITIVE H 02/20/19 02/21/19 02/21/19 23:02 02:38 07:25 RBC 3.87 L Hgb 12.5 L Hct 37.2 L Glucose POC Glucose (mg/dL) 144 H 123 H ALT Total Protein Urine Glucose (UA) EBV Capsid Ag IgG Intrp 02/21/19 07:25 RBC Hgb Hct Glucose POC Glucose (mg/dL) ALT 19 L Total Protein 6.0 L Urine Glucose (UA) EBV Capsid Ag IgG Intrp - Diagnostic Findings Additional findings: CT Head wo cont 02/20/19. Global atrophy. Small vessel disease. No ICH. Nil acute. Carotid duplex 02/20/19. BICA <25% stenosis. Antegrade flow in both vertebral arteries. MRI Brain 01/25/19. Age related atrophy and chronic small vessel disease. No acute infarct. No ICH. No other acute intracranial abnormalities seen. TTE 01/23/19. LV size and function normal EF 55-60%. Normal LA size. Interatrial and interventricular septum intact. No valvular vegetations seen. I have reviewed neuroimages myself. Assessment and Plan Assessment: Recurrent dizziness and presyncope- no adequate primary neurological explanation found thus far. Plan: -Explained the types of neurological testing we have available during acute stay , i.e. CT, MRI, U/S, EEG. He has had most of everything done already. The only remaining test I can think of is to investigate the integrity of his intracranial posterior circulation. Will obtain MRA Head wo sabrina. He has not given me anything in the history to suggest epileptic seizure, so will hold off on EEG -Send B12. TSH normal -Other medical work-up for dizziness/presyncope deferred to primary team -As for his concern about "pinched nerve" in the back of the head, he would be referring to occipital nerve irritation/neuralgia, which would not explain his dizziness and presyncope -d/w patient in detail. All questions answered. Thank you for this consultation. Please call with ?. Time with Patient: Greater than 30 (Time spent in direct patient care, greater than 50% of which was spent in [id number] counseling and coordination of care: 70 minutes)
[2019-02-21] MEDS: DOCUSATE 100 MG CAP PO SCH (10:09)
[2019-02-21 10:53] VITALS: BMI 29.5
[2019-02-21 11:40] LABS: Glucose,Whole Blood 204 mg/dL (75-99)
[2019-02-21] MEDS ORDERED: VANCOMYCIN IV PER PHARMACY 1 EACH MISC MISCELLANE PRN (12:33)
[2019-02-21] MEDS ORDERED: VANCOMYCIN 1,000 MG in SODIUM CHLORIDE 0.9% 250 ML IVPB STA (12:33)
[2019-02-21] MEDS: VANCOMYCIN 1,750 MG in SODIUM CHLORIDE 0.9% 500 ML 500 ML IVPB SCH ×2 (13:17→20:41)
--- NOTE | 2019-02-21 14:19 | HP ---
HISTORY AND PHYSICAL A 68-year-old white male who comes in with syncope and near syncope and dizziness. A month ago he had the same workup with MRI of brain, GREG, carotid duplex, cardiac event monitor which are normal. He is back for the same type of symptoms. He is complaining of some pain at the back of his cranial, occipital area. Possible pinched nerve causing possible occipital neuritis. We will get neurology is see him. Denies any dysphagia and aphasia, , paresis bowel or bladder or seizure activity. 14 POINT REVIEW OF SYSTEMS: Negative except for as mentioned in HPI. PAST MEDICAL HISTORY: Dyslipidemia GERD, diabetes mellitus, angina, hypertension, sleep apnea, IDDM, hiatal hernia, constipation, hemorrhoids, hyperkalemia. SURGERIES: Back surgery, cholecystectomy, heart catheterization, hernia repair, arthroscopy in the knees. HOME MEDICATIONS: As mentioned above. See list. FAMILY HISTORY: Mother with dementia. Father with dementia. Temp 98.1, pulse 70s to 80s, respiratory rate is 16 to 18, blood pressures with 120s to 170s/80s to 90s, O2 is 94% to 96% on room air. CARDIOVASCULAR: S1, S2. LUNGS: Transmitted upper airway sounds. HEMATOLOGY: Negative Homans. PSYCH: Fair mood and affect. NEUROLOGIC: Cranial nerves appear to be intact. Strength is good. He is able to walk and ambulate. No facial asymmetry. LABS: Reviewed. ASSESSMENT: Recurrent dizziness, presyncope. Neurology consult will be done. Cardiology consult, possibly ordered MRA of the brain. Occipital neuritis which would not explain his dizziness and presyncope. Please see further orders. MMODL / IJN: [id number] /
--- NOTE | 2019-02-21 15:32 | MR ---
EXAMINATION TYPE: MR angio head wo con DATE OF EXAM: 02/21/2019 COMPARISON: NONE HISTORY: Dizziness/presyncope r/o VBI TECHNIQUE: Time of flight images focusing on the [place] of [place] were performed without contrast.. 2-D and 3-D postprocessing imaging is performed on independent workstation and reviewed.. FINDINGS: There is dominant right vertebral artery. Vertebral arteries are patent to basilar junction . There is no significant focal stenosis or aneurysmal change of the posterior circulation. There is small caliber but patent left posterior indicating artery. There is hypoplastic right posterior commu nicating artery. No suspicious narrowing of the basilar artery is seen. There is a patent anterior communicating artery image 102. There is small caliber but patent right A1 segment. There is no significant focal stenosis or aneurysmal change in the anterior circulation. IMPRESSION: No suspicious narrowing of the basilar artery. No aneurysmal change at the level of the c ircle of [place].
[2019-02-21 17:08] LABS: Glucose,Whole Blood 97 mg/dL (75-99)
[2019-02-21 20:19] LABS: Glucose,Whole Blood 187 mg/dL (75-99)
[2019-02-21 22:26] LABS: Hemoglobin A1C 6.8 % (4.0-6.0)
[2019-02-22 02:10] LABS: Glucose,Whole Blood 106 mg/dL (75-99)
[2019-02-22] MEDS: SODIUM CHLORIDE 0.9% 1,000 ML IV SCH ×3 (03:24→21:13)
[2019-02-22 07:02] LABS: Glucose,Whole Blood 100 mg/dL (75-99)
[2019-02-22] MEDS: INSULIN ASPART (NovoLOG) 100 UNIT/ML VIAL SQ SCH ×4 (07:23→21:06)
[2019-02-22] MEDS: DOCUSATE 100 MG CAP PO SCH (08:10)
[2019-02-22] MEDS: MAGNESIUM OXIDE 400 MG TAB PO SCH (08:11)
[2019-02-22] MEDS: FAMOTIDINE 20 MG TAB PO SCH ×2 (08:11→21:05)
[2019-02-22] MEDS: MULTIVITAMINS, THERA 1 EACH TAB PO SCH (08:11)
[2019-02-22] MEDS: ATORVASTATIN 20 MG TAB PO SCH (08:11)
[2019-02-22] MEDS: metFORMIN 500 MG TAB PO SCH (08:11)
[2019-02-22] MEDS: DICYCLOMINE 10 MG CAP PO SCH (08:11)
[2019-02-22] MEDS: HYDROcodone/APAP 5-325MG 1 EACH TAB PO SCH ×2 (08:11→21:05)
[2019-02-22] MEDS: CITALOPRAM HYDROBROMIDE 20 MG TAB PO SCH (08:11)
[2019-02-22] MEDS: amLODIPine 5 MG TAB PO SCH ×2 (08:11→21:04)
[2019-02-22] MEDS: ASPIRIN 325 MG TAB PO SCH (08:11)
[2019-02-22] MEDS: LISINOPRIL 20 MG TAB PO SCH (08:11)
[2019-02-22] MEDS: VANCOMYCIN 1,750 MG in SODIUM CHLORIDE 0.9% 500 ML 500 ML IVPB SCH ×2 (08:12→21:07)
[2019-02-22 08:16] LABS: Basophils % (A) 1 %; Eosinophils # (A) 0.5 k/uL (0-0.7); Eosinophils % (A) 6 %; HCT 37.1 % (39.0-53.0); HGB 12.4 gm/dL (13.0-17.5); Lymphocytes % (A) 27 %; MCH 32.4 pg (25.0-35.0); MCHC 33.4 g/dL (31.0-37.0); Mean Platelet Volume 7.7; Monocytes # (A) 0.4 k/uL (0-1.0); Monocytes % (A) 6 %; Neutrophils # (A) 4.4 k/uL (1.3-7.7); Neutrophils % (A) 58 %; Platelet Count 159 k/uL (150-450); RBC 3.82 m/uL (4.30-5.90); RDW 13.1 % (11.5-15.5); WBC 7.5 k/uL (3.8-10.6)
[2019-02-22 08:31] LABS: African American GFR (CKD) >90 (>60 ml/min/1.73 sqM); Anion Gap 8 mmol/L; Blood Urea Nitrogen 10 mg/dL (9-20); Calcium 8.8 mg/dL (8.4-10.2); Carbon Dioxide 28 mmol/L (22-30); Chloride 104 mmol/L (98-107); Glucose 114 mg/dL (74-99); Potassium 4.2 mmol/L (3.5-5.1); Sodium 140 mmol/L (137-145)
--- NOTE | 2019-02-22 10:55 | P.PN ---
Subjective Progress Note Date: 02/22/19 Principal diagnosis: Dizziness/presyncope MRA Head. Patient has many questions such as CSF leakage, endocrine dysfunctions and other potential causes to explain his dizziness. States he has anxiety that is not completely controlled. No new neuro c/o. Objective - Vital Signs Vital signs: Vital Signs Temp 98.2 F 02/22/19 05:00 Pulse 55 L 02/22/19 05:00 Resp 16 02/22/19 05:00 BP 149/87 02/22/19 05:00 Pulse Ox 96 02/22/19 05:00 Intake & Output 02/21/19 02/22/19 02/22/19 18:59 06:59 18:59 Intake Total 2900 Balance 2900 Weight 87.997 kg Intake: Intake, IV Titration 1700 Amount Sodium Chloride 0.9% 1, 1200 000 ml @ 100 mls/hr IV . Q10H TACOS Rx#:[id number] Vancomycin 1,750 mg In 500 Sodium Chloride 0.9% 500 ml 500 ml @ 167 mls/hr IVPB Q12HR TACOS Rx#: [id number] Oral 1200 Other: Voiding Method Urinal Urinal # Voids 2 5 - Exam Patient not examined today. Today's visit was focused on [id number] counseling - Labs CBC & Chem 7: 02/22/19 07:22 02/22/19 07:22 Labs: Abnormal Lab Results - Last 24 Hours (Table) 02/21/19 02/21/19 02/21/19 Range/Units 08:33 11:39 20:17 RBC (4.30-5.90) m/uL Hgb (13.0-17.5) gm/dL Hct (39.0-53.0) % Glucose (74-99) mg/dL POC Glucose (mg/dL) 204 H 187 H (75-99) mg/dL Hemoglobin A1c 6.8 H (4.0-6.0) % 02/22/19 02/22/19 02/22/19 Range/Units 02:10 07:00 07:22 RBC 3.82 L (4.30-5.90) m/uL Hgb 12.4 L (13.0-17.5) gm/dL Hct 37.1 L (39.0-53.0) % Glucose (74-99) mg/dL POC Glucose (mg/dL) 106 H 100 H (75-99) mg/dL Hemoglobin A1c (4.0-6.0) % 02/22/19 Range/Units 07:22 RBC (4.30-5.90) m/uL Hgb (13.0-17.5) gm/dL Hct (39.0-53.0) % Glucose 114 H (74-99) mg/dL POC Glucose (mg/dL) (75-99) mg/dL Hemoglobin A1c (4.0-6.0) % Microbiology - Last 24 Hours (Table) 02/20/19 17:05 Blood Culture Gram Stain - Preliminary Blood Blood Culture - Preliminary Coagulase Negative Staph 02/20/19 17:05 Blood Culture - Final Blood - Imaging and Cardiology MRA Head wo sabrina 02/21/19. No evidence of VBI. No LVO or stenosis. I have reviewed neuroimages myself. Assessment and Plan Assessment: Recurrent dizziness and presyncope, s/p extensive yet unrevealing work-up. I do not see a primary neurological explanation. Plan: -MRA Head results d/w patient in detail -TSH and B12 both normal -If he wishes further endocrine testing, he will need to d/w his PCP -His presentation is not consistent with CSF leak/intracranial hypotension -Treat anxiety -Other medical work-up for dizziness/presyncope deferred to primary team -d/w patient in detail. All questions answered -I have no further neuro recs. He has had all neuro testing available in-house except for EEG, and both patient and I agree he is not having seizures. Will sign off. Please call with new ?. Thank you again for this consultation. Time with Patient: Less than 30 (Time spent in direct patient care, 100% of which was spent in [id number] counselin minutes)
[2019-02-22 12:14] LABS: Glucose,Whole Blood 123 mg/dL (75-99)
[2019-02-22] MEDS: GENTAMICIN 0.3% OPHTH DROPS 5 ML BTL BOTH EYES SCH ×4 (14:57→23:48)
[2019-02-22 16:54] LABS: Glucose,Whole Blood 159 mg/dL (75-99)
[2019-02-22 20:16] LABS: Glucose,Whole Blood 147 mg/dL (75-99)
--- NOTE | 2019-02-22 23:17 | PN ---
PROGRESS NOTE SUBJECTIVE: Jtatl-[id number]-oaqf-old white male whose MRA of his head is normal. He has been ruled out by Neurology. He still has a positive blood culture. Awaiting Dr. Leon's recommendations. Remains on IV vancomycin. Cleared from neurology standpoint. Blood pressure is elevated tonight. We are going to give him Norvasc 5 mg b.i.d. His white count is 7.5, hemoglobin 12.4. Sugars are mid 100s. ASSESSMENT: Bacteremia. Awaiting Dr. Leon's recommendations prior to discharge. If he clears him to go home, I will send him home. Norvasc was added 5 mg b.i.d. for hypertension. Lungs are clear. CARDIOVASCULAR: S1, S2. NEUROLOGIC: Cranial nerves are intact. PSYCH: Fair mood and affect. Continue current treatment. MMODL / IJN: [id number] /
[2019-02-23 02:02] LABS: Glucose,Whole Blood 111 mg/dL (75-99)
[2019-02-23] MEDS: GENTAMICIN 0.3% OPHTH DROPS 5 ML BTL BOTH EYES SCH ×3 (05:08→13:59)
[2019-02-23] MEDS: SODIUM CHLORIDE 0.9% 1,000 ML IV SCH (05:47)
[2019-02-23 07:02] LABS: Glucose,Whole Blood 104 mg/dL (75-99)
[2019-02-23] MEDS ORDERED: VANCOMYCIN TROUGH DUE 1 EACH MISC MISCELLANE ONE (08:00)
[2019-02-23] MEDS: INSULIN ASPART (NovoLOG) 100 UNIT/ML VIAL SQ SCH ×2 (08:03→13:58)
[2019-02-23] MEDS: metFORMIN 500 MG TAB PO SCH (08:20)
[2019-02-23] MEDS: ASPIRIN 325 MG TAB PO SCH (08:20)
[2019-02-23] MEDS: DOCUSATE 100 MG CAP PO SCH (08:20)
[2019-02-23] MEDS: HYDROcodone/APAP 5-325MG 1 EACH TAB PO SCH (08:21)
[2019-02-23] MEDS: FAMOTIDINE 20 MG TAB PO SCH (08:21)
[2019-02-23] MEDS: MAGNESIUM OXIDE 400 MG TAB PO SCH (08:21)
[2019-02-23] MEDS: LISINOPRIL 20 MG TAB PO SCH (08:22)
[2019-02-23] MEDS: ATORVASTATIN 20 MG TAB PO SCH (08:22)
[2019-02-23] MEDS: CITALOPRAM HYDROBROMIDE 20 MG TAB PO SCH (08:22)
[2019-02-23] MEDS: MULTIVITAMINS, THERA 1 EACH TAB PO SCH (08:22)
[2019-02-23] MEDS: amLODIPine 5 MG TAB PO SCH (08:22)
[2019-02-23] MEDS: DICYCLOMINE 10 MG CAP PO SCH (08:22)
[2019-02-23] MEDS: VANCOMYCIN 1,750 MG in SODIUM CHLORIDE 0.9% 500 ML 500 ML IVPB SCH (08:25)
--- NOTE | 2019-02-23 09:28 | P.CONS ---
History of Present Illness - Reason for Consult Consult date: 02/22/19 Positive blood culture Requesting physician: Hawk Gaona - Chief Complaint Generalized weakness and fatigability few weeks - History of Present Illness Patient is 68-year-old male presenting to the ER from his primary care physician office for evaluation of generalized weakness, fatigability for the last few weeks the patient thinks that he may pass out but has not had a syncopal episode did have some occipital headache but no visual changes no URI symptoms no chest pain or cough no palpitation no nausea no vomiting no problem. No diarrhea patient on presentation hospital was afebrile the patient white count was normal influenza serology was negative EBV IgG was positive the patient UA was negative chest x-ray was negative for any acute infiltrate CT of the brain was negative for any bleed patient did have blood culture done which were coming back positive for gram-positive cocci vancomycin was added and infectious disease was consulted for further recommendation regarding antibiotic therapy patient currently with no evidence of any open sores on his bodyredness of the legs or joints, currently being evaluated by neurology as well Review of Systems Positive points has been mentioned in HPI rest of the systems are negative Past Medical History Past Medical History: Chest Pain / Angina, Diabetes Mellitus, GERD/Reflux, Hyperlipidemia, Hypertension, Sleep Apnea/CPAP/BIPAP, Syncope Additional Past Medical History / Comment(s): IDDM, ERIKA cannot tolerate CPAP, varicose veins, hiatal hernia, constipation occas bleeding with stools, hemorrhoids, hyperkalemia History of Any Multi-Drug Resistant Organisms: MRSA Year Discovered:: November 2017 MDRO Source:: Abdomen at [facility] per Dr. Verdin Past Surgical History: Back Surgery, Cholecystectomy, Heart Catheterization, Hernia Repair Additional Past Surgical History / Comment(s): arthroscopy right knee. bilateral cataracts, jeancarlos inguinal hernia repair, alban funloplasty(stomach wrapped) Past Anesthesia/Blood Transfusion Reactions: No Reported Reaction Past Psychological History: Anxiety Additional Psychological History / Comment(s): Pt resides with his spouse. He is independent. has a glucometer and bp machine. Smoking Status: Never smoker Past Alcohol Use History: Occasional Additional Past Alcohol Use History / Comment(s): Occasional beer. Past Drug Use History: None Reported - Past Family History Mother Family Medical History: Dementia Additional Family Medical History / Comment(s): HAD PACEMAKER, age 86, Father Family Medical History: Dementia Additional Family Medical History / Comment(s): Alzhemeris Medications and Allergies Home Medications Medication Instructions Recorded Confirmed Type Citalopram Hydrobromide [CeleXA] 20 mg PO DAILY 09/13/17 02/20/19 History Magnesium Oxide [Mag-Ox] 400 mg PO DAILY 09/13/17 02/20/19 History Multivitamins, Thera [Multivitamin 1 tab PO DAILY 09/13/17 02/20/19 History (formulary)] Ranitidine HCl [Zantac] 150 mg PO BID 09/13/17 02/20/19 History metFORMIN HCL [Glucophage] 500 mg PO DAILY 09/13/17 02/20/19 History Atorvastatin [Lipitor] 20 mg PO DAILY #30 tab 12/20/17 02/20/19 Rx Nitroglycerin Sl Tabs [Nitrostat] 0.4 mg SUBLINGUAL Q5M PRN tab 12/29/17 02/20/19 Rx amLODIPine [Norvasc] 5 mg PO DAILY tab 12/29/17 02/20/19 Rx Dicyclomine [Bentyl] 10 mg PO DAILY 01/22/19 02/20/19 History HYDROcodone/APAP 5-325MG [[place] 1 tab PO BID 01/22/19 02/20/19 History 5-325] Lisinopril 20 mg PO DAILY 02/07/19 02/20/19 History Allergies Allergy/AdvReac Type Severity Reaction Status Date / Time dipyridamole AdvReac Nausea & Verified 02/20/19 16:31 [From Persantine] Vomiting Iodinated Contrast- Oral and AdvReac Nausea & Verified 02/20/19 16:31 IV Dye Vomiting [Iodinated Contrast Media - IV Dye] morphine AdvReac Nausea & Verified 02/20/19 16:31 Vomiting Physical Exam Vitals: Vital Signs Temp Pulse Pulse Resp BP Pulse Ox 02/22/19 12:11 96.9 F L 62 20 170/89 95 02/22/19 05:00 98.2 F 55 L 16 149/87 96 02/21/19 20:49 98 F 68 16 171/93 98 Intake and Output 02/22/19 02/22/19 02/22/19 06:59 14:59 22:59 Intake Total 1400 1050 Balance 1400 1050 Intake: Intake, IV Titration 800 1050 Amount Sodium Chloride 0.9% 1, 800 550 000 ml @ 100 mls/hr IV . Q10H TACOS Rx#:[id number] Vancomycin 1,750 mg In 500 Sodium Chloride 0.9% 500 ml 500 ml @ 167 mls/hr IVPB Q12HR TACOS Rx#: [id number] Oral 600 Other: Voiding Method Urinal Urinal # Voids 5 5 GENERAL DESCRIPTION: Elderly male lying in bed, no distress. No tachypnea or accessory muscle of respiration use. HEENT: Shows Pallor , no scleral icterus. Oral mucous membrane is dry. No pharyngeal erythema or thrush NECK: Trachea central, no thyromegaly. LUNGS: Unlabored breathing. Clear to auscultation anteriorly. No wheeze or crackle. HEART: S1, S2, regular rate and rhythm. No loud murmur ABDOMEN: Soft, no tenderness , guarding or rigidity, no organomegaly EXTREMITIES: No edema of feet. SKIN: No rash, no masses palpable. NEUROLOGICAL: The patient is awake, alert, oriented x3, mood and affect normal. Results CBC & Chem 7: 02/22/19 07:22 02/22/19 07:22 Labs: Abnormal Lab Results - Last 24 Hours (Table) 02/21/19 02/21/19 02/22/19 Range/Units 08:33 20:17 02:10 RBC (4.30-5.90) m/uL Hgb (13.0-17.5) gm/dL Hct (39.0-53.0) % Glucose (74-99) mg/dL POC Glucose (mg/dL) 187 H 106 H (75-99) mg/dL Hemoglobin A1c 6.8 H (4.0-6.0) % 02/22/19 02/22/19 02/22/19 Range/Units 07:00 07:22 07:22 RBC 3.82 L (4.30-5.90) m/uL Hgb 12.4 L (13.0-17.5) gm/dL Hct 37.1 L (39.0-53.0) % Glucose 114 H (74-99) mg/dL POC Glucose (mg/dL) 100 H (75-99) mg/dL Hemoglobin A1c (4.0-6.0) % 02/22/19 Range/Units 12:13 RBC (4.30-5.90) m/uL Hgb (13.0-17.5) gm/dL Hct (39.0-53.0) % Glucose (74-99) mg/dL POC Glucose (mg/dL) 123 H (75-99) mg/dL Hemoglobin A1c (4.0-6.0) % Microbiology - Last 24 Hours (Table) 02/22/19 10:00 Urine Culture - Preliminary Urine,Clean Catch 02/20/19 17:05 Blood Culture Gram Stain - Preliminary Blood Blood Culture - Preliminary Coagulase Negative Staph Assessment and Plan Assessment: 1-patient presented to the hospital with generalized weakness and fatigability in this patient currently with no localizing signs or symptoms of infection the patient has been afebrile his white count has been normal with a positive blood culture identified as coagulase negative staph likely a skin contaminant (1) Positive blood culture Current Visit: Yes Status: Acute Code(s): R78.81 - BACTEREMIA SNOMED Code(s): 448548002 Plan: 1-discontinue the vancomycin 2-repeat the blood cultures and check a CRP we will follow on clinical condition and culture to further adjust medication if needed Thank you for this consultation will follow this patient along with you Time with Patient: Greater than 30
--- NOTE | 2019-02-23 10:16 | P.DS ---
Providers Date of admission: 02/23/19 06:42 Expected date of discharge: 02/23/19 Attending physician: Hawk Gaona Consults: 02/20/19 19:44 Consult Physician Routine Consulting Provider: Candace Cortes Consult Reason/Comments: dizziness Do you want consulting provider notified?: Yes 02/22/19 08:36 Consult Physician Routine Consulting Provider: Rusty Leon Consult Reason/Comments: pos. bc Do you want consulting provider notified?: Yes Primary care physician: [facility] Hospital Course: Final Diagnoses: -Recurrent dizziness, presyncope -Positive blood culture, identified as coagulase-negative staph, likely a skin contaminant, repeat culture pending. Hospital course: This a 68-year-old gentleman admitted for presyncope, generalized weakness, fatigability, occipital headache and multiple other medical issues. Influenza serology negative UA negative chest x-ray negative. CT did not report any bleeding. Blood cultures initially posing gram-positive cocci, treated with IV vancomycin as per infectious disease. Repeat blood culture pending. Also complained of bilateral eyes crustiness in the a.m., no signs or symptoms of pinkeye, no redness, no drainage ,empirically treated with generalized eyedrops. Evaluated by neurology and infectious disease. Neuro workup completed, cleared for discharge by neurology.Patient will be discharged home pending final DC recommendations and clearance from infectious disease, in a stable condition with guarded prognosis. Exam: GENERAL: Alert and oriented 3, no acute distress CARDIOVASCULAR: S1, S2 regular.. No murmur RESPIRATION: Breath sounds diminished in the bases. No rhonchi or crackles. ABDOMEN: Soft, nontender . No guarding. no masses palpable.Bowel sounds heard. NERVOUS SYSTEM: No focal deficits. Microbiology 02/20/19 17:05 Blood Blood Culture Gram Stain - Final 02/20/19 17:05 Blood Blood Culture - Final Staphylococcus epidermidis 02/22/19 10:00 Urine,Clean Catch Urine Culture - Preliminary 02/20/19 17:05 Blood Blood Culture - Final The impression and plan of care has been dictated as directed. : I performed a history and examination of this patient, discussed the same with the dictator. I agree with the dictator's note ,documented as a scribe. Any additional findings or plans will be noted. Time Taken: 35 min. Patient Condition at Discharge: Stable Plan - Discharge Summary Discharge Rx Participant: Yes New Discharge Prescriptions: New Docusate [Colace] 100 mg PO DAILY #30 cap Gentamicin 0.3% Ophth Soln [Garamycin 0.3% Ophth Soln] 2 drops BOTH EYES Q4HR #1 bottle Aspirin EC [Ecotrin Low Dose] 81 mg PO DAILY #1 tablet.dr Rodriguez Ranitidine HCl [Zantac] 150 mg PO BID Multivitamins, Thera [Multivitamin (formulary)] 1 tab PO DAILY metFORMIN HCL [Glucophage] 500 mg PO DAILY Magnesium Oxide [Mag-Ox] 400 mg PO DAILY Citalopram Hydrobromide [CeleXA] 20 mg PO DAILY Atorvastatin [Lipitor] 20 mg PO DAILY #30 tab amLODIPine [Norvasc] 5 mg PO DAILY tab Nitroglycerin Sl Tabs [Nitrostat] 0.4 mg SUBLINGUAL Q5M PRN tab PRN Reason: Chest Pain HYDROcodone/APAP 5-325MG [[place] 5-325] 1 tab PO BID Dicyclomine [Bentyl] 10 mg PO DAILY Lisinopril 20 mg PO DAILY Discharge Medication List Citalopram Hydrobromide [CeleXA] 20 mg PO DAILY 09/13/17 [History] Magnesium Oxide [Mag-Ox] 400 mg PO DAILY 09/13/17 [History] Multivitamins, Thera [Multivitamin (formulary)] 1 tab PO DAILY 09/13/17 [History] Ranitidine HCl [Zantac] 150 mg PO BID 09/13/17 [History] metFORMIN HCL [Glucophage] 500 mg PO DAILY 09/13/17 [History] Atorvastatin [Lipitor] 20 mg PO DAILY #30 tab 12/20/17 [Rx] Nitroglycerin Sl Tabs [Nitrostat] 0.4 mg SUBLINGUAL Q5M PRN tab 12/29/17 [Rx] amLODIPine [Norvasc] 5 mg PO DAILY tab 12/29/17 [Rx] Dicyclomine [Bentyl] 10 mg PO DAILY 01/22/19 [History] HYDROcodone/APAP 5-325MG [[place] 5-325] 1 tab PO BID 01/22/19 [History] Lisinopril 20 mg PO DAILY 02/07/19 [History] Aspirin EC [Ecotrin Low Dose] 81 mg PO DAILY #1 tablet. 02/23/19 [Rx] Docusate [Colace] 100 mg PO DAILY #30 cap 02/23/19 [Rx] Gentamicin 0.3% Ophth Soln [Garamycin 0.3% Ophth Soln] 2 drops BOTH EYES Q4HR #1 bottle 02/23/19 [Rx] Follow up Appointment(s)/Referral(s): Hawk Gaona MD [Primary Care Provider] - 3 Days Activity/Diet/Wound Care/Special Instructions: Final urine culture results to PCP. Antibiotics/ clearance as per ID
[2019-02-23 11:23] LABS: Glucose,Whole Blood 172 mg/dL (75-99)
[2019-02-23 11:56] VITALS: BP 158/92; PULSE 67; RESP 16; TEMP 97
--- NOTE | 2019-02-23 15:45 | PN ---
PROGRESS NOTE DATE OF SERVICE: 02/23/2019 REASON FOR FOLLOWUP: Positive blood culture. INTERVAL HISTORY: The patient is currently afebrile. The patient has been breathing comfortably. The patient denies having any chest pain or cough. No nausea, no vomiting, no abdominal pain and no diarrhea. PHYSICAL EXAMINATION: Blood pressure is 158/92 with a pulse of 67, temperature 97. He is 96% on room air. General description is an elderly male lying in bed in no distress. RESPIRATORY SYSTEM: Unlabored breathing. Clear to auscultation anteriorly. HEART: S1, S2. Regular rate and rhythm. ABDOMEN: Soft. No tenderness. EXTREMITIES: No edema of the feet. LABS: Hemoglobin is 12.4, white count 7.5 with a BUN of 10, creatinine 0.87. CRP is less than 5. Blood culture with Staph epidermidis. Urine is negative. DIAGNOSTIC IMPRESSION AND PLAN: Patient with positive blood culture with Staphylococcus epidermidis, likely a skin contaminant in this patient currently with no clinical focus of infection. CRP is normal as well. That would go against an infectious etiology. Vancomycin discontinued. No need for further workup or antibiotic on discharge. Family at the bedside. They had multiple questions. Those were answered to their satisfaction. MMODL / IJN: [id number] /
== END 2019-02-23 16:02 | disposition home or self-care (01) | DRG 312 ==
LOC: EC 15:26 → 3NMEDONC 19:44 → OBSVTOIN 02-23 06:42
PROVIDERS: ADMIT Family Medicine; ATTEND Family Medicine
DX: R55 Syncope and collapse (principal); R42 Dizziness and giddiness; E11.9 Type 2 diabetes mellitus without complications; E78.5 Hyperlipidemia, unspecified; E86.0 Dehydration; F41.9 Anxiety disorder, unspecified; G47.33 Obstructive sleep apnea (adult) (pediatric); I10 Essential (primary) hypertension; K21.9 Gastro-esophageal reflux disease without esophagitis; R51 Headache; K44.9 Diaphragmatic hernia without obstruction or gangrene; K59.00 Constipation, unspecified; K64.9 Unspecified hemorrhoids; I83.90 Asymptomatic varicose veins of unspecified lower extremity; Z79.899 Other long term (current) drug therapy; Z79.84 Long term (current) use of oral hypoglycemic drugs; Z88.5 Allergy status to narcotic agent; Z88.8 Allergy status to other drugs, medicaments and biological substances; Z91.041 Radiographic dye allergy status; Z90.49 Acquired absence of other specified parts of digestive tract; Z98.42 Cataract extraction status, left eye; Z98.41 Cataract extraction status, right eye; Z96.1 Presence of intraocular lens; Z86.14 Personal history of Methicillin resistant Staphylococcus aureus infection; Z81.8 Family history of other mental and behavioral disorders
CPT/HCPCS: 36415; 70450; 70544; 71046; 80048; 80053; 80202; 81003; 82550; 82607; 83036; 83605; 83735; 83880; 84100; 84402; 84403; 84443; 84484; 85025; 85610; 85730; 86140; 86663; 86664; 86665; 87040; 87077; 87086; 87186; 87502; 93005; 93880; 96360; 96361; 99285

== ENCOUNTER 2019-03-30 14:07 | Emergency (ER) | payer MEDICARE, OTHER ==
[2019-03-30 14:24] VITALS: BP 183/100; PULSE 69; RESP 18; TEMP 97.4
[2019-03-30] MEDS ORDERED: cefTRIAXone 1,000 MG VIAL (IM USE) IM STA (15:19)
--- NOTE | 2019-03-30 15:32 | ED ---
General Adult HPI - General Chief complaint: Extremity Injury, Upper Stated complaint: Animal bite Time Seen by Provider: 03/30/19 14:42 Source: patient Mode of arrival: ambulatory Limitations: no limitations - History of Present Illness Initial comments: Patient is a 68-year-old male presenting to emergency Department with complaints of a cat scratch that he thinks is getting infected on his right hand. Patient states a kitten scratched him on the dorsal aspect of his right hand yesterday. Patient states his hand feels a little sore today and noticed bruising and redness. Patient denies fever, chills, significant pain. Patient has no other complaints at this time. Past medical history of diabetes, GERD, hypertension, hyperlipidemia.Upon arrival to ER, vital signs are stable, afebrile. - Related Data Home Medications Medication Instructions Recorded Confirmed Citalopram Hydrobromide [CeleXA] 20 mg PO DAILY 09/13/17 02/20/19 Magnesium Oxide [Mag-Ox] 400 mg PO DAILY 09/13/17 02/20/19 Multivitamins, Thera [Multivitamin 1 tab PO DAILY 09/13/17 02/20/19 (formulary)] Ranitidine HCl [Zantac] 150 mg PO BID 09/13/17 02/20/19 metFORMIN HCL [Glucophage] 500 mg PO DAILY 09/13/17 02/20/19 Dicyclomine [Bentyl] 10 mg PO DAILY 01/22/19 02/20/19 HYDROcodone/APAP 5-325MG [[place] 1 tab PO BID 01/22/19 02/20/19 5-325] Lisinopril 20 mg PO DAILY 02/07/19 02/20/19 Previous Rx's Medication Instructions Recorded Atorvastatin [Lipitor] 20 mg PO DAILY #30 tab 12/20/17 Nitroglycerin Sl Tabs [Nitrostat] 0.4 mg SUBLINGUAL Q5M PRN tab 12/29/17 amLODIPine [Norvasc] 5 mg PO DAILY tab 12/29/17 Aspirin EC [Ecotrin Low Dose] 81 mg PO DAILY #1 tablet. 02/23/19 Docusate [Colace] 100 mg PO DAILY #30 cap 02/23/19 Gentamicin 0.3% Ophth Soln 2 drops BOTH EYES Q4HR #1 bottle 02/23/19 [Garamycin 0.3% Ophth Soln] Amoxicillin/Potassium Clav 1 tab PO BID 7 Days #14 tab 03/30/19 [Augmentin 875-125 Tablet] Allergies Allergy/AdvReac Type Severity Reaction Status Date / Time dipyridamole AdvReac Nausea & Verified 03/30/19 14:24 [From Persantine] Vomiting Iodinated Contrast Media AdvReac Nausea & Verified 03/30/19 14:24 [Iodinated Contrast Media - Vomiting IV Dye] morphine AdvReac Nausea & Verified 03/30/19 14:24 Vomiting Review of Systems ROS Statement: Those systems with pertinent positive or pertinent negative responses have been documented in the HPI. ROS Other: All systems not noted in ROS Statement are negative. Past Medical History Past Medical History: Chest Pain / Angina, Diabetes Mellitus, GERD/Reflux, Hyperlipidemia, Hypertension, Sleep Apnea/CPAP/BIPAP, Syncope Additional Past Medical History / Comment(s): IDDM, ERIKA cannot tolerate CPAP, varicose veins, hiatal hernia, constipation occas bleeding with stools, hemorrhoids, hyperkalemia History of Any Multi-Drug Resistant Organisms: MRSA Date of last positivie culture/infection: November 2017 MDRO Source:: Abdomen at [facility] per Dr. Verdin Past Surgical History: Back Surgery, Cholecystectomy, Heart Catheterization, Hernia Repair Additional Past Surgical History / Comment(s): arthroscopy right knee. bilateral cataracts, jeancarlos inguinal hernia repair, alban funloplasty(stomach wrapped) Past Anesthesia/Blood Transfusion Reactions: No Reported Reaction Past Psychological History: Anxiety Smoking Status: Never smoker Past Alcohol Use History: Occasional Past Drug Use History: None Reported - Past Family History Mother Family Medical History: Dementia Additional Family Medical History / Comment(s): HAD PACEMAKER, age 86, Father Family Medical History: Dementia Additional Family Medical History / Comment(s): Alzhemeris General Exam - General Exam Comments Initial Comments: GENERAL: Well-appearing, well-nourished and in no acute distress. HEAD: Atraumatic, normocephalic. EYES: Pupils equal round and reactive to light, extraocular movements intact, sclera anicteric, conjunctiva are normal. NECK: Normal range of motion, supple without lymphadenopathy or JVD. LUNGS: Breath sounds clear to auscultation bilaterally and equal. No wheezes rales or rhonchi. HEART: Regular rate and rhythm without murmurs, rubs or gallops. ABDOMEN: Soft, nontender, normoactive bowel sounds. No masses appreciated. EXTREMITIES: Patient has full range of motion of his right hand and wrist. Strength is 5 out of 5. No pitting or edema. No clubbing or cyanosis. NEUROLOGICAL: Cranial nerves II through XII grossly intact. Normal speech, normal gait. PSYCH: Normal mood, normal affect. SKIN: Warm, Dry, normal turgor. Patient has mild superficial abrasions to the dorsal aspect of the right hand consistent with a cat scratch. There is overlying bruising and mild erythema present. No swelling present. No fluctuations noted. Limitations: no limitations Course Vital Signs 03/30/19 03/30/19 14:19 15:43 Temperature 97.4 F L 97.4 F L Pulse Rate 69 69 Respiratory 18 18 Rate Blood Pressure 183/100 183/100 O2 Sat by Pulse 95 95 Oximetry Medical Decision Making - Medical Decision Making Patient is a 68-year-old male presenting with a superficial abrasion on the dorsal aspect of his right hand from a cat scratch happened yesterday. The area is bruising and mild erythema present. No fevers or chills. Patient has full motion of his right hand. Patient will be started on antibiotics to prevent further infection. Patient was given 1 g of Rocephin before discharge. Patient will continue on Keflex. Patient will follow up with primary care if symptoms do not improved after 3-4 days. Patient stable for discharge at this time. Patient is in agreement with this plan of care. Return parameters were discussed with the patient and he verbalized understanding. Case discussed with Dr. Gutierres. Disposition Clinical Impression: Animal scratch, Abrasion of right hand Disposition: HOME SELF-CARE Condition: Stable Instructions (If sedation given, give patient instructions): Animal Bite (ED) Additional Instructions: Please return to the Emergency Department if symptoms worsen or any other concerns, such as fever, chills. Take antibiotics as prescribed. Follow-up with PCP and 3-4 days if symptoms do not persist. Prescriptions: Amoxicillin/Potassium Clav [Augmentin 875-125 Tablet] 1 tab PO BID 7 Days #14 tab Is patient prescribed a controlled substance at d/c from ED?: No Referrals: Hawk Gaona MD [Primary Care Provider] - 1-2 days
== END 2019-03-30 15:47 | disposition home or self-care (01) ==
LOC: EC 14:07
DX: S60.511A Abrasion of right hand, initial encounter (principal); E11.9 Type 2 diabetes mellitus without complications; E78.5 Hyperlipidemia, unspecified; K21.9 Gastro-esophageal reflux disease without esophagitis; I10 Essential (primary) hypertension; G47.33 Obstructive sleep apnea (adult) (pediatric); F41.9 Anxiety disorder, unspecified; Z79.84 Long term (current) use of oral hypoglycemic drugs; Z79.899 Other long term (current) drug therapy; Z88.5 Allergy status to narcotic agent; Z88.8 Allergy status to other drugs, medicaments and biological substances; Z91.041 Radiographic dye allergy status; W55.03XA Scratched by cat, initial encounter
CPT/HCPCS: 99283; 96372; J0696

== ENCOUNTER 2019-12-13 07:54 | Emergency (ER) | payer MEDICARE, OTHER ==
[2019-12-13] MEDS ORDERED: KETOROLAC 30 MG/ML 1 ML VIAL IM STA (08:10)
[2019-12-13] MEDS ORDERED: DIAZEPAM 5 MG/ML 2 ML INJ IM ONE (08:10)
--- NOTE | 2019-12-13 08:15 | ED ---
General Adult HPI - General Chief complaint: Neck Pain/Injury Stated complaint: Pain in neck Time Seen by Provider: 12/13/19 07:55 Source: patient, RN notes reviewed, old records reviewed Mode of arrival: ambulatory Limitations: no limitations - History of Present Illness Initial comments: This is a 69-year-old male who presents emergency department stating that he got up off the couch chest x-ray and he had a spasm in the left side of his neck. Patient states now when he turns or bends his head he has a stiffening spasm. Patient states it's on the left side of his neck up until behind his ear. Patient denies any trapezius muscle pain. Patient denies any numbness weakness of his arms. Patient denies any other problems at this time. Patient denies any fever. - Related Data Home Medications Medication Instructions Recorded Confirmed Citalopram Hydrobromide [CeleXA] 20 mg PO DAILY 09/13/17 02/20/19 Magnesium Oxide [Mag-Ox] 400 mg PO DAILY 09/13/17 02/20/19 Multivitamins, Thera [Multivitamin 1 tab PO DAILY 09/13/17 02/20/19 (formulary)] Ranitidine HCl [Zantac] 150 mg PO BID 09/13/17 02/20/19 metFORMIN HCL [Glucophage] 500 mg PO DAILY 09/13/17 02/20/19 Dicyclomine [Bentyl] 10 mg PO DAILY 01/22/19 02/20/19 HYDROcodone/APAP 5-325MG [[place] 1 tab PO BID 01/22/19 02/20/19 5-325] Lisinopril 20 mg PO DAILY 02/07/19 02/20/19 Previous Rx's Medication Instructions Recorded Atorvastatin [Lipitor] 20 mg PO DAILY #30 tab 12/20/17 Nitroglycerin Sl Tabs [Nitrostat] 0.4 mg SUBLINGUAL Q5M PRN tab 12/29/17 amLODIPine [Norvasc] 5 mg PO DAILY tab 12/29/17 Aspirin EC [Ecotrin Low Dose] 81 mg PO DAILY #1 tablet. 02/23/19 Docusate [Colace] 100 mg PO DAILY #30 cap 02/23/19 Gentamicin 0.3% Ophth Soln 2 drops BOTH EYES Q4HR #1 bottle 02/23/19 [Garamycin 0.3% Ophth Soln] Amoxicillin/Potassium Clav 1 tab PO BID 7 Days #14 tab 03/30/19 [Augmentin 875-125 Tablet] Cyclobenzaprine [Flexeril] 10 mg PO TID #20 tab 12/13/19 Ketorolac [Toradol] 10 mg PO Q6HR #15 tab 12/13/19 Allergies Allergy/AdvReac Type Severity Reaction Status Date / Time dipyridamole AdvReac Nausea & Verified 12/13/19 08:00 [From Persantine] Vomiting Iodinated Contrast Media AdvReac Nausea & Verified 12/13/19 08:00 [Iodinated Contrast Media - Vomiting IV Dye] morphine AdvReac Nausea & Verified 12/13/19 08:00 Vomiting Review of Systems ROS Statement: Those systems with pertinent positive or pertinent negative responses have been documented in the HPI. ROS Other: All systems not noted in ROS Statement are negative. Past Medical History Past Medical History: Chest Pain / Angina, Diabetes Mellitus, GERD/Reflux, Hyperlipidemia, Hypertension, Sleep Apnea/CPAP/BIPAP, Syncope Additional Past Medical History / Comment(s): IDDM, ERIKA cannot tolerate CPAP, varicose veins, hiatal hernia, hemorrhoids, hyperkalemia History of Any Multi-Drug Resistant Organisms: MRSA Date of last positivie culture/infection: November 2017 MDRO Source:: Abdomen at [facility] per Dr. Verdin Past Surgical History: Back Surgery, Cholecystectomy, Heart Catheterization, Hernia Repair Additional Past Surgical History / Comment(s): arthroscopy right knee. bilateral cataracts, jeancarlos inguinal hernia repair, alban funloplasty(stomach wrapped) Past Anesthesia/Blood Transfusion Reactions: No Reported Reaction Past Psychological History: Anxiety Smoking Status: Never smoker Past Alcohol Use History: Occasional Past Drug Use History: None Reported - Past Family History Mother Family Medical History: Dementia Additional Family Medical History / Comment(s): HAD PACEMAKER, age 86, Father Family Medical History: Dementia Additional Family Medical History / Comment(s): Alzhemeris General Exam - General Exam Comments Initial Comments: GENERAL: Patient is well-developed and well-nourished. Patient is nontoxic and well- hydrated and is in mild distress. ENT: Neck is soft and supple. No significant lymphadenopathy is noted. Oropharynx is clear. Moist mucous membranes. Patient has slight tenderness of the ster nocleidomastoid muscle on the left. EYES: The sclera were anicteric and conjunctiva were pink and moist. Extraocular movements were intact and pupils were equal round and reactive to light. Eyeli ds were unremarkable. SKIN: Skin is clear with no lesions or rashes and otherwise unremarkable. NEUROLOGIC: Patient is alert and oriented x3. Cranial nerves II through XII are grossly intact. Motor and sensory are also intact. Normal speech, volume and content. Symmetrical smile. MUSCULOSKELETAL: Normal extremities with adequate strength and full range of motion. LYMPHATICS: No significant lymphadenopathy is noted PSYCHIATRIC: Normal psychiatric evaluation. Limitations: no limitations Course Vital Signs 12/13/19 07:56 Temperature 98.3 F Pulse Rate 63 Respiratory 18 Rate Blood Pressure 176/84 O2 Sat by Pulse 96 Oximetry Medical Decision Making - Medical Decision Making Patient received an IM shot of Valium and Toradol. Disposition Clinical Impression: Torticollis, acute Disposition: HOME SELF-CARE Condition: Good Instructions (If sedation given, give patient instructions): Spasmodic Torticollis (ED) Prescriptions: Cyclobenzaprine [Flexeril] 10 mg PO TID #20 tab Ketorolac [Toradol] 10 mg PO Q6HR #15 tab Is patient prescribed a controlled substance at d/c from ED?: No Referrals: Hawk Gaona MD [Primary Care Provider] - 1-2 days Time of Disposition: 08:13
[2019-12-14 09:56] VITALS: BP 176/84; PULSE 63; RESP 18; TEMP 98.3
== END 2019-12-13 08:51 | disposition home or self-care (01) ==
LOC: EC 07:54
DX: M43.6 Torticollis (principal); R06.03 Acute respiratory distress; F41.9 Anxiety disorder, unspecified; E11.9 Type 2 diabetes mellitus without complications; K21.9 Gastro-esophageal reflux disease without esophagitis; I10 Essential (primary) hypertension; I25.2 Old myocardial infarction; Z79.899 Other long term (current) drug therapy; Z79.84 Long term (current) use of oral hypoglycemic drugs; Z88.8 Allergy status to other drugs, medicaments and biological substances; Z91.041 Radiographic dye allergy status; Z88.5 Allergy status to narcotic agent; Z95.5 Presence of coronary angioplasty implant and graft
CPT/HCPCS: 96372; 99284

== ENCOUNTER 2019-12-27 19:14 | Observation (INO) | payer MEDICARE, OTHER ==
[2019-12-27] MEDS ORDERED: ASPIRIN 81 MG PO STA (19:51)
[2019-12-27] MEDS ORDERED: NITROGLYCERIN OINT 1 INCH/GM PACKET TOPICAL STA (19:51)
--- NOTE | 2019-12-27 19:56 | ED ---
General Adult HPI - General Chief complaint: Chest Pain Stated complaint: Chest Pain Time Seen by Provider: 12/27/19 19:20 Source: patient, RN notes reviewed, old records reviewed Mode of arrival: ambulatory Limitations: no limitations - History of Present Illness Initial comments: This is a 69-year-old male who presents emergency Department complaining of left-sided chest pain this afternoon he states it made him sweat and he was mildly short of breath occurred. Patient states last hour and he decided come to the emergency department. Currently patient is not expressing any chest pain. Patient denies any previous heart disease. Patient states he does have diabetes high blood pressure high cholesterol. Patient denies smoke patient denies any family history of heart disease. Patient denies any recent fever chills or cough per patient denies any abdominal pain. Patient denies any vomiting or diarrhea. Patient denies being lightheaded dizzy. Patient denies any headache patient denies numbness weakness. Patient denies any swelling to the legs. - Related Data Home Medications Medication Instructions Recorded Confirmed Citalopram Hydrobromide [CeleXA] 20 mg PO DAILY 09/13/17 02/20/19 Magnesium Oxide [Mag-Ox] 400 mg PO DAILY 09/13/17 02/20/19 Multivitamins, Thera [Multivitamin 1 tab PO DAILY 09/13/17 02/20/19 (formulary)] Ranitidine HCl [Zantac] 150 mg PO BID 09/13/17 02/20/19 metFORMIN HCL [Glucophage] 500 mg PO DAILY 09/13/17 02/20/19 Dicyclomine [Bentyl] 10 mg PO DAILY 01/22/19 02/20/19 HYDROcodone/APAP 5-325MG [[place] 1 tab PO BID 01/22/19 02/20/19 5-325] lisinopriL 20 mg PO DAILY 02/07/19 02/20/19 Previous Rx's Medication Instructions Recorded Atorvastatin [Lipitor] 20 mg PO DAILY #30 tab 12/20/17 Nitroglycerin Sl Tabs [Nitrostat] 0.4 mg SUBLINGUAL Q5M PRN tab 12/29/17 amLODIPine [Norvasc] 5 mg PO DAILY tab 12/29/17 Aspirin EC [Ecotrin Low Dose] 81 mg PO DAILY #1 tablet. 02/23/19 Docusate [Colace] 100 mg PO DAILY #30 cap 02/23/19 Gentamicin 0.3% Ophth Soln 2 drops BOTH EYES Q4HR #1 bottle 02/23/19 [Garamycin 0.3% Ophth Soln] Amoxicillin/Potassium Clav 1 tab PO BID 7 Days #14 tab 03/30/19 [Augmentin 875-125 Tablet] Cyclobenzaprine [Flexeril] 10 mg PO TID #20 tab 12/13/19 Ketorolac [Toradol] 10 mg PO Q6HR #15 tab 12/13/19 Allergies Allergy/AdvReac Type Severity Reaction Status Date / Time dipyridamole AdvReac Nausea & Verified 12/27/19 19:23 [From Persantine] Vomiting Iodinated Contrast Media AdvReac Nausea & Verified 12/27/19 19:23 [Iodinated Contrast Media - Vomiting IV Dye] morphine AdvReac Nausea & Verified 12/27/19 19:23 Vomiting Review of Systems ROS Statement: Those systems with pertinent positive or pertinent negative responses have been documented in the HPI. ROS Other: All systems not noted in ROS Statement are negative. Past Medical History Past Medical History: Chest Pain / Angina, Diabetes Mellitus, GERD/Reflux, Hyperlipidemia, Hypertension, Sleep Apnea/CPAP/BIPAP, Syncope Additional Past Medical History / Comment(s): IDDM, ERIKA cannot tolerate CPAP, varicose veins, hiatal hernia, constipation occas bleeding with stools, hemorrhoids, hyperkalemia History of Any Multi-Drug Resistant Organisms: MRSA Date of last positivie culture/infection: November 2017 MDRO Source:: Abdomen at [facility] per Dr. Verdin Past Surgical History: Back Surgery, Cholecystectomy, Heart Catheterization, Hernia Repair Additional Past Surgical History / Comment(s): arthroscopy right knee. bilateral cataracts, jeancarlos inguinal hernia repair, alban funloplasty(stomach wrapped) Past Anesthesia/Blood Transfusion Reactions: No Reported Reaction Past Psychological History: Anxiety Past Alcohol Use History: Occasional Past Drug Use History: None Reported - Past Family History Mother Family Medical History: Dementia Additional Family Medical History / Comment(s): HAD PACEMAKER, age 86, Father Family Medical History: Dementia Additional Family Medical History / Comment(s): Alzhemeris General Exam - General Exam Comments Initial Comments: GENERAL: Patient is well-developed and well-nourished. Patient is nontoxic and well- hydrated and is in no acute distress. ENT: Neck is soft and supple. No significant lymphadenopathy is noted. Oropharynx is clear. Moist mucous membranes. Neck has full range of motion without eliciting any pain. EYES: The sclera were anicteric and conjunctiva were pink and moist. Extraocular movements were intact and pupils were equal round and reactive to light. Eyelids were unremarkable. PULMONARY: Unlabored respirations. Good breath sounds bilaterally. No audible rales rhonchi or wheezing was noted. CARDIOVASCULAR: There is a regular rate and rhythm without any murmurs gallops or rubs. ABDOMEN: Soft and nontender with normal bowel sounds. SKIN: Skin is clear with no lesions or rashes and otherwise unremarkable. NEUROLOGIC: Patient is alert and oriented x3. Cranial nerves II through XII are grossly intact. Motor and sensory are also intact. Normal speech, volume and content. Symmetrical smile. MUSCULOSKELETAL: Normal extremities with adequate strength and full range of motion. No lower extremity swelling or edema. No calf tenderness. LYMPHATICS: No significant lymphadenopathy is noted PSYCHIATRIC: Normal psychiatric evaluation. 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 Patient's EKG shows no ST segment elevation or depression. Chest x-ray shows no acute abnormality. Patient remained chest pain-free throughout his course in the emergency department. I spoke with Dr. Gaona he agreed to admit the patient admitted the patient wrote admitting orders. - Lab Data Result diagrams: 12/27/19 19:55 12/27/19 19:55 Lab Results 12/27/19 12/27/19 12/27/19 Range/Units 19:55 19:55 19:55 WBC 11.1 H (3.8-10.6) k/uL RBC 4.94 (4.30-5.90) m/uL Hgb 15.7 (13.0-17.5) gm/dL Hct 48.7 (39.0-53.0) % MCV 98.5 (80.0-100.0) fL MCH 31.8 (25.0-35.0) pg MCHC 32.3 (31.0-37.0) g/dL RDW 13.2 (11.5-15.5) % Plt Count 203 (150-450) k/uL Neutrophils % 66 % Lymphocytes % 25 % Monocytes % 5 % Eosinophils % 2 % Basophils % 0 % Neutrophils # 7.3 (1.3-7.7) k/uL Lymphocytes # 2.8 (1.0-4.8) k/uL Monocytes # 0.5 (0-1.0) k/uL Eosinophils # 0.2 (0-0.7) k/uL Basophils # 0.1 (0-0.2) k/uL PT 10.3 (9.0-12.0) sec INR 1.0 (<1.2) APTT 23.7 (22.0-30.0) sec Sodium 134 L (137-145) mmol/L Potassium 5.4 H (3.5-5.1) mmol/L Chloride 100 (98-107) mmol/L Carbon Dioxide 23 (22-30) mmol/L Anion Gap 11 mmol/L BUN 22 H (9-20) mg/dL Creatinine 1.18 (0.66-1.25) mg/dL Est GFR (CKD-EPI)AfAm 72 (>60 ml/min/1.73 sqM) Est GFR (CKD-EPI)NonAf 63 (>60 ml/min/1.73 sqM) Glucose 180 H (74-99) mg/dL Calcium 9.6 (8.4-10.2) mg/dL Magnesium 1.6 (1.6-2.3) mg/dL Total Bilirubin 0.5 (0.2-1.3) mg/dL AST 29 (17-59) U/L ALT 25 (4-49) U/L Alkaline Phosphatase 84 (38-126) U/L Total Protein 7.3 (6.3-8.2) g/dL Albumin 4.6 (3.5-5.0) g/dL Disposition Clinical Impression: Chest pain Disposition: ADMITTED IP TO THIS [facility] Referrals: Hawk Gaona MD [Primary Care Provider] - 1-2 days Time of Disposition: 20:56
[2019-12-27 20:10] LABS: Basophils # (A) 0.1 k/uL (0-0.2); Basophils % (A) 0 %; Eosinophils # (A) 0.2 k/uL (0-0.7); Eosinophils % (A) 2 %; HCT 48.7 % (39.0-53.0); HGB 15.7 gm/dL (13.0-17.5); Lymphocytes # (A) 2.8 k/uL (1.0-4.8); Lymphocytes % (A) 25 %; MCH 31.8 pg (25.0-35.0); MCHC 32.3 g/dL (31.0-37.0); MCV 98.5 fL (80.0-100.0); Mean Platelet Volume 9.4; Monocytes # (A) 0.5 k/uL (0-1.0); Monocytes % (A) 5 %; Neutrophils # (A) 7.3 k/uL (1.3-7.7); Neutrophils % (A) 66 %; Platelet Count 203 k/uL (150-450); RBC 4.94 m/uL (4.30-5.90); RDW 13.2 % (11.5-15.5); WBC 11.1 k/uL (3.8-10.6)
[2019-12-27 20:19] LABS: Partial Thromboplastin Time 23.7 sec (22.0-30.0); Prothrombin Time 10.3 sec (9.0-12.0)
[2019-12-27 20:27] LABS: Albumin 4.6 g/dL (3.5-5.0); Calcium 9.6 mg/dL (8.4-10.2); Magnesium 1.6 mg/dL (1.6-2.3); Potassium 5.4 mmol/L (3.5-5.1); Total Bilirubin 0.5 mg/dL (0.2-1.3); Total Protein 7.3 g/dL (6.3-8.2)
[2019-12-27] MEDS ORDERED: NITROGLYCERIN SL TABS 0.4 MG TAB SUBLINGUAL PRN (20:56)
--- NOTE | 2019-12-27 21:54 | XR ---
EXAMINATION: XR chest 2V DATE AND TIME: 12/27/2019 8:42 PM CLINICAL INDICATION: PHH; Chest Pain TECHNIQUE: Departmental protocol COMPARISON: 02/20/2019 FINDINGS: The lungs are clear. The pleural spaces are negative. The cardiac silhouette is not enlarged. The remainder of the mediastinal silhouette is unremarkable. The skeletal structures and soft tissues are negative for acute findings. IMPRESSION: NO ACUTE PROCESS.
[2019-12-27] MEDS ORDERED: SODIUM CHLORIDE 0.9% 1,000 ML IV SCH (23:15)
--- NOTE | 2019-12-28 | HP ---
HISTORY AND PHYSICAL A 69-year-old white male who came in with left-sided chest pains and diaphoresis, mildly short of breath. He came to the emergency room. He is being admitted to rule out myocardial infarction. He has history of hypertension, diabetes, high cholesterol. No family history of heart disease. No fevers, chills. No nausea, vomiting. No lightheaded or dizziness. HOME MEDICINES: 1. Celexa 20 mg daily. 2. Mag oxide 400 daily. 3. Multivitamin daily. 4. 150 b.i.d. 5. Metformin 500 daily. 6. Bentyl 10 daily. 7. [place] 5/325 b.i.d. 8. Lisinopril 20 daily. ALLERGIES: PERSANTINE, IODINE, MORPHINE. REVIEW OF SYSTEMS: Fourteen-point review of systems negative. PAST MEDICAL HISTORY: Angina, diabetes mellitus, GERD, dyslipidemia, hypertension, sleep apnea, syncope, IDDM, obstructive sleep apnea, CPAP, hiatal hernia. SURGICAL HISTORY: Back surgery, cholecystectomy, heart catheterization, hernia repair, bilateral cataracts, arthroscopy of the knee, inguinal hernia repair and Ben fundoplication. FAMILY MEDICAL HISTORY: Mother with dementia. Father with dementia. PHYSICAL EXAMINATION: Well developed, well nourished, nontoxic. HEENT: Normocephalic atraumatic. Pupils equal, round, reactive. CARDIOVASCULAR: Regular rate and rhythm. LUNGS: Clear. ABDOMEN: Soft. SKIN: Dry. NEUROLOGIC: Cranial nerves intact. No lymphadenopathy. PSYCH: Fair mood and affect. Temp 98.6, pulse 62, respiratory rate 18 to 20, blood pressure 135/86. EKG sinus rhythm. Chest x-ray is negative. Sodium 134, potassium 5.4, BUN is 22, creatinine 1.18. ASSESSMENT: 1. Atypical chest pain, rule out myocardial infarction. Check D-dimer. 2. Diabetes mellitus. 3. Hypertension. 4. Hyponatremia. 5. Hyperkalemia. Prognosis guarded. Cardiology consult. Will monitor for signs of heart disease. Check D-dimer. Possible CAT scan of the chest, if needed. MMODL / IJN: [id number] /
[2019-12-28] MEDS ORDERED: HYDROcodone/APAP 10-325MG 1 EACH TAB PO PRN (00:31)
[2019-12-28] MEDS: NITROGLYCERIN OINT 1 INCH/GM PACKET TOPICAL SCH ×2 (02:42→05:29)
[2019-12-28 02:48] VITALS: PULSE 61; RESP 18
[2019-12-28 03:28] LABS: Cholesterol 186 mg/dL (<200); HDL Cholesterol 74 mg/dL (40-60); LDL Cholesterol,Calculated 61 mg/dL (0-99); Triglycerides 256 mg/dL (<150)
[2019-12-28 06:55] LABS: Glucose,Whole Blood 128 mg/dL (75-99)
[2019-12-28] MEDS ORDERED: METOPROLOL TARTRATE 50 MG TAB PO SCH (09:00)
[2019-12-28] MEDS ORDERED: CITALOPRAM HYDROBROMIDE 20 MG TAB PO SCH (09:00)
[2019-12-28] MEDS ORDERED: amLODIPine 10 MG TAB PO SCH (09:00)
[2019-12-28] MEDS ORDERED: ASPIRIN 325 MG TAB PO SCH ×2 (09:00)
[2019-12-28] MEDS ORDERED: ATORVASTATIN 20 MG TAB PO SCH (09:00)
[2019-12-28] MEDS ORDERED: NYSTATIN 100,000UNIT/GM CREAM 30 GM TUBE TOPICAL SCH (09:00)
[2019-12-28] MEDS ORDERED: MAGNESIUM OXIDE 400 MG TAB PO SCH (09:00)
[2019-12-28] MEDS ORDERED: HYDROcodone/APAP 7.5-325MG 1 EACH TAB PO SCH (09:00)
[2019-12-28] MEDS ORDERED: TAMSULOSIN 0.4 MG CAP.ER.24H PO SCH (09:00)
--- NOTE | 2019-12-28 09:26 | P.CRDCN ---
History of Present Illness History of present illness: HISTORY OF PRESENTING ILLNESS This is a pleasant 69-year-old male past medical history significant for diabetes mellitus, hypertension, obstructive sleep apnea and multiple surgeries. He follows in the office with Dr. Jaramillo. We have been asked to see in consultation for chest pain. He states yesterday he had an episode of feeling lightheaded, diaphoretic, nauseated and a prickling sensation in the left precordial region. He has had many episodes similar to this in the past. He has undergone extensive cardiac workup including cardiac catheterization February 2018 revealing normal coronary arteries, tilt table study January 2019 that was negative for dysautonomia an outpatient event monitoring that revealed some bradycardia. At that time his medications were adjusted and he has been stable since. He is seen and examined resting comfortably in no acute distress. He is also complaining of some burning with urination. DIAGNOSTICS EKG reveals sinus mechanism with left anterior fascicular block. Telemetry tracings have been unremarkable since admission. Chest xray negative for an acute cardiopulmonary process. Laboratory reviewed, to be WBC 11.1, hemoglobin 15.7, platelets 203, d-dimer 0.31, sodium 134, potassium on admission 5. 4 repeat 4.4, creatinine 1.18, magnesium 1.6, cardiac enzymes negative 3, LDL 61 and HDL 74. Current cardiac medications include Lopressor 50 mg twice a day, atorvastatin 20 mg daily, amlodipine 10 mg daily and aspirin 325 mg daily. Most recent echocardiogram obtained January 2019 reveals preserved LV systolic function with ejection fraction 55-60%, mild MR and mild TR noted. REVIEW OF SYSTEMS At the time of my exam: CONSTITUTIONAL: Denies fever or chills. CARDIOVASCULAR: Denies chest pain, shortness of breath, orthopnea, PND or palpitations. RESPIRATORY: Denies cough. GASTROINTESTINAL: Denies abdominal pain, diarrhea, constipation, nausea or vomiting. MUSCULOSKELETAL: Denies myalgias. NEUROLOGIC: Denies numbness, tingling or weakness. ENDOCRINE: Denies fatigue, weight change, polydipsia or polyurina. GENITOURINARY: Denies burning, hematuria or urgency with micturation. HEMATOLOGIC: Denies history of anemia or bleeding. PHYSICAL EXAMINATION Blood pressure 127/65 heart rate 61 afebrile and maintaining oxygen saturation on room air. CONSTITUTIONAL: No apparent distress. HEENT: Head is normocephalic. Pupils are equal, round. Sclerae anicteric. Mucous membranes of the mouth are moist. No JVD. No carotid bruit. CHEST EXAMINATION: Lungs are clear to auscultation. No chest wall tenderness is noted on palpation or with deep breathing. HEART EXAMINATION: Regular rate and rhythm. S1, S2 heard. No murmurs, gallops or rub. ABDOMEN: Soft, nontender. Positive bowel sounds. EXTREMITIES: 2+ peripheral pulses, no lower extremity edema and no calf tenderness. NEUROLOGIC EXAMINATION: Patient is awake, alert and oriented x3. ASSESSMENT Near syncope Chest pain, atypical. An acute coronary event has been ruled out. Normal cardiac catheterization 2018. Leukocytosis Hypertension Diabetes mellitus Sleep apnea PLAN An acute coronary event has been ruled out. Check a urinalysis given his burning with urination and leukocytosis. Consider continuous glucose monitoring as his symptoms may be related to fluctua ting blood sugars. Outpatient event monitoring upon discharge. Follow up in the office with Dr. Dow in 4-6 weeks after event monitoring complete. Thank you kindly for this consultation. Nurse Practitioner note has been reviewed, I agree with a documented findings and plan of care. Patient was seen and examined. Past Medical History Past Medical History: Chest Pain / Angina, Diabetes Mellitus, GERD/Reflux, Hyperlipidemia, Hypertension, Sleep Apnea/CPAP/BIPAP, Syncope Additional Past Medical History / Comment(s): IDDM, ERIKA cannot tolerate CPAP, varicose veins, hiatal hernia, constipation occas bleeding with stools, he morrhoids, hyperkalemia History of Any Multi-Drug Resistant Organisms: MRSA Date of last positivie culture/infection: November 2017 MDRO Source:: Abdomen at [facility] per Dr. Verdin Past Surgical History: Back Surgery, Cholecystectomy, Heart Catheterization, Hernia Repair Additional Past Surgical History / Comment(s): arthroscopy right knee. bilateral cataracts, jeancarlos inguinal hernia repair, alban funloplasty(stomach wrapped) Past Anesthesia/Blood Transfusion Reactions: No Reported Reaction Past Psychological History: Anxiety Additional Psychological History / Comment(s): Pt resides with his spouse. He is independent. has a glucometer and bp machine. Smoking Status: Never smoker Past Alcohol Use History: Occasional Additional Past Alcohol Use History / Comment(s): Occasional beer. Past Drug Use History: None Reported - Past Family History Mother Family Medical History: Dementia Additional Family Medical History / Comment(s): HAD PACEMAKER, age 86, Father Family Medical History: Dementia Additional Family Medical History / Comment(s): Alzheimer Medications and Allergies Home Medications Medication Instructions Recorded Confirmed Type RX: Citalopram Hydrobromide 20 mg PO DAILY 09/13/17 12/27/19 History [CeleXA] RX: Magnesium Oxide [Mag-Ox] 400 mg PO DAILY 09/13/17 12/27/19 History RX: Atorvastatin [Lipitor] 20 mg PO DAILY #30 tab 12/20/17 12/27/19 Rx RX: Dicyclomine [Bentyl] 10 mg PO DAILY 01/22/19 12/27/19 History Aspirin EC [Ecotrin] 325 mg PO DAILY 12/27/19 12/27/19 History Clindamycin Topical Soln 1 applic TOPICAL BID PRN 12/27/19 12/27/19 History [Cleocin-T Topical Soln] Clotrimazole/Betamethasone Dip 1 applic TOPICAL BID 12/27/19 12/27/19 History [Lotrisone Cream] Doxycycline Monohydrate [Monodox] 100 mg PO BID 12/27/19 12/27/19 History Dulaglutide [Trulicity] 1.5 mg SQ MO 12/27/19 12/27/19 History Empagliflozin [Jardiance] 25 mg PO DAILY 12/27/19 12/27/19 History HYDROcodone/APAP 7.5-325MG [[place] 1 tab PO DAILY 12/27/19 12/27/19 History 7.5-325] Ibuprofen [Motrin] 800 mg PO BID 12/27/19 12/27/19 History Metoprolol Tartrate [Lopressor] 50 mg PO BID 12/27/19 12/27/19 History Nystatin 100,000Unit/gm Cream 1 applic TOPICAL BID 12/27/19 12/27/19 History [Mycostatin Cream] RX: metFORMIN HCL 1,000 mg PO BID 12/27/19 12/27/19 History Tamsulosin HCl [Flomax] 0.4 mg PO DAILY 12/27/19 12/27/19 History amLODIPine [Norvasc] 10 mg PO DAILY 12/27/19 12/27/19 History Allergies Allergy/AdvReac Type Severity Reaction Status Date / Time dipyridamole AdvReac Nausea & Verified 12/27/19 21:48 [From Persantine] Vomiting Iodinated Contrast Media AdvReac Nausea & Verified 12/27/19 21:48 [Iodinated Contrast Media - Vomiting IV Dye] morphine AdvReac Nausea & Verified 12/27/19 21:48 Vomiting Physical Exam Vitals: Vital Signs Temp Pulse Pulse Resp BP BP Pulse Ox 12/28/19 02:48 61 18 12/28/19 02:45 98.2 F 61 18 127/65 96 12/27/19 22:20 98.2 F 61 16 136/80 98 12/27/19 22:16 97.7 F 58 L 18 132/86 96 12/27/19 21:03 58 L 18 149/90 98 12/27/19 20:56 96 12/27/19 20:08 65 20 12/27/19 20:00 62 18 148/80 98 12/27/19 19:19 98.6 F 62 18 135/86 97 Intake and Output 12/27/19 12/28/19 12/28/19 22:59 06:59 14:59 Other: # Voids 1 2 Weight 83.915 kg Results 12/27/19 19:55 12/28/19 01:56 Cardiac Enzymes 12/27/19 12/27/19 12/27/19 Range/Units 19:55 19:55 23:11 AST 29 (17-59) U/L Troponin I <0.012 <0.012 (0.000-0.034) ng/mL 12/28/19 Range/Units 01:56 AST (17-59) U/L Troponin I <0.012 (0.000-0.034) ng/mL Coagulation 12/27/19 Range/Units 19:55 PT 10.3 (9.0-12.0) sec APTT 23.7 (22.0-30.0) sec Lipids 12/27/19 Range/Units 19:55 Triglycerides 256 H (<150) mg/dL Cholesterol 186 (<200) mg/dL HDL Cholesterol 74 H (40-60) mg/dL CBC 12/27/19 Range/Units 19:55 WBC 11.1 H (3.8-10.6) k/uL RBC 4.94 (4.30-5.90) m/uL Hgb 15.7 (13.0-17.5) gm/dL Hct 48.7 (39.0-53.0) % Plt Count 203 (150-450) k/uL Comprehensive Metabolic Panel 12/27/19 Range/Units 19:55 Sodium 134 L (137-145) mmol/L Potassium 5.4 H (3.5-5.1) mmol/L Chloride 100 (98-107) mmol/L Carbon Dioxide 23 (22-30) mmol/L BUN 22 H (9-20) mg/dL Creatinine 1.18 (0.66-1.25) mg/dL Glucose 180 H (74-99) mg/dL Calcium 9.6 (8.4-10.2) mg/dL AST 29 (17-59) U/L ALT 25 (4-49) U/L Alkaline Phosphatase 84 (38-126) U/L Total Protein 7.3 (6.3-8.2) g/dL Albumin 4.6 (3.5-5.0) g/dL Current Medications Generic Name Dose Route Start Last Admin Trade Name Freq PRN Reason Stop Dose Admin Hydrocodone Bitart/Acetaminophen 1 each 12/28/19 09:00 [place] 7.5-325 PO DAILY [facility] Hydrocodone Bitart/Acetaminophen 1 each 12/28/19 00:31 12/28/19 00:40 [place] 10 PO 1 each Q6H PRN Administration Pain Amlodipine Besylate 10 mg 12/28/19 09:00 Norvasc PO DAILY [facility] Atorvastatin Calcium 20 mg 12/28/19 09:00 Lipitor PO DAILY [facility] Citalopram Hydrobromide 20 mg 12/28/19 09:00 Celexa PO DAILY [facility] Sodium Chloride 1,000 mls @ 75 mls/hr 12/27/19 23:15 12/27/19 23:20 Saline 0.9% IV 75 mls/hr .[id number] TACOS Administration Magnesium Oxide 400 mg 12/28/19 09:00 Mag-Ox PO DAILY [facility] Metoprolol Tartrate 50 mg 12/28/19 09:00 Lopressor PO BID [facility] Nitroglycerin 0.4 mg 12/27/19 20:56 Nitrostat SUBLINGUAL Q5M PRN Chest Pain Nystatin 1 applic 12/28/19 09:00 Mycostatin Cream TOPICAL BID [facility] Tamsulosin HCl 0.4 mg 12/28/19 09:00 Flomax PO DAILY [facility]ACOS Intake and Output 12/27/19 12/28/19 12/28/19 22:59 06:59 14:59 Other: # Voids 1 2 Weight 83.915 kg 12/27/19 19:55 12/27/19 19:55
[2019-12-28 10:44] VITALS: BMI 26.5
--- NOTE | 2019-12-28 11:31 | P.DS ---
Providers Date of admission: 12/27/19 20:56 Expected date of discharge: 12/28/19 Attending physician: Hawk Gaona Consults: 12/27/19 20:56 Consult Physician Urgent Consulting Provider: [facility] Consult Reason/Comments: Chest pain Do you want consulting provider notified?: Yes Primary care physician: Hawk Gaona [facility] Course: Final Diagnoses: Atypical chest pain, acute coronary event ruled out as per cardiology. Diabetes mellitus, hemoglobin A1c results to PCP's office Hypertension Hyperlipidemia Sleep apnea Hospital course this a 69-year-old gentleman admitted with atypical chest pain and multiple other medical issues. Evaluated by cardiology. Even monitoring recommended at discharge. Patient will be discharged home in a stable condition with guarded prognosis,pending final DC recommendations and clearance from cardiology. The impression and plan of care has been dictated as directed. : I performed a history and examination of this patient, discussed the same with the dictator. I agree with the dictator's note ,documented as a scribe. Any additional findings or plans will be noted. Patient Condition at Discharge: Stable Plan - Discharge Summary Discharge Rx Participant: No New Discharge Prescriptions: Continue Magnesium Oxide [Mag-Ox] 400 mg PO DAILY Citalopram Hydrobromide [CeleXA] 20 mg PO DAILY Atorvastatin [Lipitor] 20 mg PO DAILY #30 tab Dicyclomine [Bentyl] 10 mg PO DAILY Clindamycin Topical Soln [Cleocin-T Topical Soln] 1 applic TOPICAL BID PRN PRN Reason: NECK AND CHEST Tamsulosin HCl [Flomax] 0.4 mg PO DAILY Metoprolol Tartrate [Lopressor] 50 mg PO BID HYDROcodone/APAP 7.5-325MG [[place] 7.5-325] 1 tab PO DAILY Empagliflozin [Jardiance] 25 mg PO DAILY Doxycycline Monohydrate [Monodox] 100 mg PO BID Nystatin 100,000Unit/gm Cream [Mycostatin Cream] 1 applic TOPICAL BID Dulaglutide [Trulicity] 1.5 mg SQ MO metFORMIN HCL 1,000 mg PO BID amLODIPine [Norvasc] 10 mg PO DAILY Ibuprofen [Motrin] 800 mg PO BID Clotrimazole/Betamethasone Dip [Lotrisone Cream] 1 applic TOPICAL BID Aspirin EC [Ecotrin] 325 mg PO DAILY Discharge Medication List Citalopram Hydrobromide [CeleXA] 20 mg PO DAILY 09/13/17 [History] Magnesium Oxide [Mag-Ox] 400 mg PO DAILY 09/13/17 [History] Atorvastatin [Lipitor] 20 mg PO DAILY #30 tab 12/20/17 [Rx] Dicyclomine [Bentyl] 10 mg PO DAILY 01/22/19 [History] Aspirin EC [Ecotrin] 325 mg PO DAILY 12/27/19 [History] Clindamycin Topical Soln [Cleocin-T Topical Soln] 1 applic TOPICAL BID PRN 12/27/19 [History] Clotrimazole/Betamethasone Dip [Lotrisone Cream] 1 applic TOPICAL BID 12/27/19 [History] Doxycycline Monohydrate [Monodox] 100 mg PO BID 12/27/19 [History] Dulaglutide [Trulicity] 1.5 mg SQ MO 12/27/19 [History] Empagliflozin [Jardiance] 25 mg PO DAILY 12/27/19 [History] HYDROcodone/APAP 7.5-325MG [[place] 7.5-325] 1 tab PO DAILY 12/27/19 [History] Ibuprofen [Motrin] 800 mg PO BID 12/27/19 [History] Metoprolol Tartrate [Lopressor] 50 mg PO BID 12/27/19 [History] Nystatin 100,000Unit/gm Cream [Mycostatin Cream] 1 applic TOPICAL BID 12/27/19 [History] Tamsulosin HCl [Flomax] 0.4 mg PO DAILY 12/27/19 [History] amLODIPine [Norvasc] 10 mg PO DAILY 12/27/19 [History] metFORMIN HCL 1,000 mg PO BID 12/27/19 [History] Follow up Appointment(s)/Referral(s): Hawk Gaona MD [Primary Care Provider] - 3 Days Torsten Dow MD [STAFF PHYSICIAN] - 4 Weeks (After event Monitoring complete.) Activity/Diet/Wound Care/Special Instructions: Hemoglobin A1c added onto labs with final results to be faxed to PCPs office. UA pending. Pending final DC recommendations and clearance from cardiology. Event monitor as per cardiology.
--- NOTE | 2019-12-28 11:38 | ECHOF ---
Referral Reason:dizziness, palpitations MEASUREMENTS -------- HEIGHT: 177.8 cm WEIGHT: 83.9 kg BP: 127/65 RVIDd: 3.0 cm (< 3.3) IVSd: 1.9 cm (0.6 - 1.1) LVIDd: 4.3 cm (3.9 - 5.3) LVPWd: 1.9 cm (0.6 - 1.1) IVSs: 2.2 cm LVIDs: 3.1 cm LVPWs: 2.4 cm LAESV Index (A-L): 19.19 ml/m Ao Diam: 3.0 cm (2.0 - 3.7) AV Cusp: 2.1 cm (1.5 - 2.6) MV E Nicolas: 0.49 m/s MV DecT: 412 ms MV A Nicolas: 0.79 m/s MV E/A Ratio: 0.62 RAP: 5.00 mmHg RVSP: 25.85 mmHg FINDINGS -------- Resting bradycardia (HR<60bpm). This was a technically adequate study. The left ventricular size is normal. There is severe concentric left ventricular hypertrophy. Ove rall left ventricular systolic function is low-normal with, an EF between 50 - 55 %. The diastolic filling pattern is normal for the age of the patient 9.48. The right ventricle is normal in size. Normal LA size by volume 22+/-6 ml/m2. The right atrial size is normal. Interatrial and interventricular septum intact. There is no evidence of aortic regurgitation. There is no evidence of aortic stenosis. Mild mitral regurgitation is present. Mild tricuspid regurgitation present. There is no evidence of pulmonary hypertension. The right v entricular systolic pressure, as measured by Doppler, is 25.85mmHg. There is no pulmonic regurgitation present. The aortic root size is normal. IVC Not well visulized. There is no pericardial effusion. CONCLUSIONS -------- 1. The left ventricular size is normal. 2. There is severe concentric left ventricular hypertrophy. 3. Overall left ventricular systolic function is low-normal with, an EF between 50 - 55 %. 4. The diastolic filling pattern is normal for the age of the patient 9.48 5. Mild mitral regurgitation is present. 6. Mild tricuspid regurgitation present. HYDRAULIC LIFT DRIVER: Jamilah Gordon RDCS
[2019-12-28 12:03] LABS: Glucose,Whole Blood 203 mg/dL (75-99)
[2019-12-28 13:26] VITALS: BP 137/79; TEMP 97.9
[2019-12-28] MEDS ORDERED: ACETAMINOPHEN TAB 500 MG TAB PO STA (13:29)
[2019-12-28 14:37] LABS: Appearance,Urine Clear (Clear); Bilirubin,Urine Negative (Negative); Blood,Urine Negative (Negative); Color,Urine Light Yellow; Glucose,Urine (UA) 4+ (Negative); Ketones,Urine Negative (Negative); Leukocyte Esterase,Urine Negative (Negative); Nitrite,Urine Negative (Negative); PH, Urine 6.5 (5.0-8.0); Protein,Urine Negative (Negative); Specific Gravity,Urine 1.014 (1.001-1.035); Urobilinogen,Urine <2.0 mg/dL (<2.0)
== END 2019-12-28 17:14 | disposition home or self-care (01) ==
LOC: EC 19:14 → 3NCARDOBS 20:56
PROVIDERS: ADMIT Family Medicine; ATTEND Family Medicine
DX: R07.89 Other chest pain (principal); R61 Generalized hyperhidrosis; R06.02 Shortness of breath; R11.0 Nausea; R20.2 Paresthesia of skin; R55 Syncope and collapse; E11.9 Type 2 diabetes mellitus without complications; I11.9 Hypertensive heart disease without heart failure; E78.5 Hyperlipidemia, unspecified; G47.33 Obstructive sleep apnea (adult) (pediatric); E78.00 Pure hypercholesterolemia, unspecified; E87.1 Hypo-osmolality and hyponatremia; E87.5 Hyperkalemia; K21.9 Gastro-esophageal reflux disease without esophagitis; I83.90 Asymptomatic varicose veins of unspecified lower extremity; F41.9 Anxiety disorder, unspecified; I44.4 Left anterior fascicular block; D72.829 Elevated white blood cell count, unspecified; R30.9 Painful micturition, unspecified; I08.1 Rheumatic disorders of both mitral and tricuspid valves; Z03.818 Encounter for observation for suspected exposure to other biological agents ruled out; Z79.899 Other long term (current) drug therapy; Z79.84 Long term (current) use of oral hypoglycemic drugs; Z79.891 Long term (current) use of opiate analgesic; Z79.82 Long term (current) use of aspirin; Z79.1 Long term (current) use of non-steroidal anti-inflammatories (NSAID); Z88.8 Allergy status to other drugs, medicaments and biological substances; Z91.048 Other nonmedicinal substance allergy status; Z88.5 Allergy status to narcotic agent; Z87.19 Personal history of other diseases of the digestive system; Z86.14 Personal history of Methicillin resistant Staphylococcus aureus infection; Z98.890 Other specified postprocedural states; Z90.49 Acquired absence of other specified parts of digestive tract; Z98.41 Cataract extraction status, right eye; Z98.42 Cataract extraction status, left eye; Z81.8 Family history of other mental and behavioral disorders; Z82.49 Family history of ischemic heart disease and other diseases of the circulatory system
CPT/HCPCS: 93005 ×2; 99285; 36415; 93306; 93270; 85379; 80061; 80053; 83735; 84132; 84484 ×2; 85025; 85610; 85730; 81003; 83036; 71046; G0378 ×2; U0003

== ENCOUNTER 2020-02-15 18:17 | Emergency (ER) | payer MEDICARE, OTHER ==
[2020-02-15 19:00] VITALS: RESP 18; TEMP 98.2
--- NOTE | 2020-02-15 19:14 | ED ---
Fall HPI - General Source: patient Mode of arrival: ambulatory <Tiffany Lara - Last Filed: 02/15/20 20:57> <David Paredes - Last Filed: 02/15/20 21:41> - General Chief Complaint: Fall Stated Complaint: fall, chest injury Time Seen by Provider: 02/15/20 19:03 - History of Present Illness Initial Comments: 69-year-old male presenting today for chief complaint of left rib pain x 1 week. Patient states approximately one week ago he was walking when he tripped and fell with a flashlight in his hand he states the flashlight was pressed against his left ribs he states he did not hit his head have injury to his neck back abdomen he states that he only has had rib pain he states that the rib pain persisted he thought it was best he came in for evaluation of possible fracture. Patient denies any shortness of breath he denies any chest pressure. Denies any arm or jaw pain. Patient states the area is slightly swollen and is tender to palpation. Patient denies any leg swelling or additional complaints upon arrival patient appears well nontoxic in no acute distress patient denies any anticoagulation therapy use. (Tiffany Lara) - Related Data Home Medications Medication Instructions Recorded Confirmed Citalopram Hydrobromide [CeleXA] 20 mg PO DAILY 09/13/17 12/27/19 Magnesium Oxide [Mag-Ox] 400 mg PO DAILY 09/13/17 12/27/19 Dicyclomine [Bentyl] 10 mg PO DAILY 01/22/19 12/27/19 Aspirin EC [Ecotrin] 325 mg PO DAILY 12/27/19 12/27/19 Clindamycin Topical Soln 1 applic TOPICAL BID PRN 12/27/19 12/27/19 [Cleocin-T Topical Soln] Clotrimazole/Betamethasone Dip 1 applic TOPICAL BID 12/27/19 12/27/19 [Lotrisone Cream] Doxycycline Monohydrate [Monodox] 100 mg PO BID 12/27/19 12/27/19 Dulaglutide [Trulicity] 1.5 mg SQ MO 12/27/19 12/27/19 Empagliflozin [Jardiance] 25 mg PO DAILY 12/27/19 12/27/19 HYDROcodone/APAP 7.5-325MG [[place] 1 tab PO DAILY 12/27/19 12/27/19 7.5-325] Ibuprofen [Motrin] 800 mg PO BID 12/27/19 12/27/19 Metoprolol Tartrate [Lopressor] 50 mg PO BID 12/27/19 12/27/19 Nystatin 100,000Unit/gm Cream 1 applic TOPICAL BID 12/27/19 12/27/19 [Mycostatin Cream] Tamsulosin HCl [Flomax] 0.4 mg PO DAILY 12/27/19 12/27/19 amLODIPine [Norvasc] 10 mg PO DAILY 12/27/19 12/27/19 metFORMIN HCL 1,000 mg PO BID 12/27/19 12/27/19 Previous Rx's Medication Instructions Recorded Atorvastatin [Lipitor] 20 mg PO DAILY #30 tab 12/20/17 Allergies Allergy/AdvReac Type Severity Reaction Status Date / Time dipyridamole AdvReac Nausea & Verified 02/15/20 19:00 [From Persantine] Vomiting Iodinated Contrast Media AdvReac Nausea & Verified 02/15/20 19:00 [Iodinated Contrast Media - Vomiting IV Dye] morphine AdvReac Nausea & Verified 02/15/20 19:00 Vomiting Review of Systems ROS Other: All systems not noted in ROS Statement are negative. <Tiffany Lara - Last Filed: 02/15/20 20:57> ROS Other: All systems not noted in ROS Statement are negative. <David Paredes - Last Filed: 02/15/20 21:41> ROS Statement: Those systems with pertinent positive or pertinent negative responses have been documented in the HPI. Past Medical History Past Medical History: Chest Pain / Angina, Diabetes Mellitus, GERD/Reflux, Hyperlipidemia, Hypertension, Sleep Apnea/CPAP/BIPAP, Syncope Additional Past Medical History / Comment(s): IDDM, ERIKA cannot tolerate CPAP, varicose veins, hiatal hernia, constipation occas bleeding with stools, hemorrhoids, hyperkalemia History of Any Multi-Drug Resistant Organisms: MRSA Date of last positivie culture/infection: November 2017 MDRO Source:: Abdomen at [facility] per Dr. Verdin Past Surgical History: Back Surgery, Cholecystectomy, Heart Catheterization, Hernia Repair Additional Past Surgical History / Comment(s): arthroscopy right knee. bilateral cataracts, jeancarlos inguinal hernia repair, alban funloplasty(stomach wrapped) Past Anesthesia/Blood Transfusion Reactions: No Reported Reaction Past Psychological History: Anxiety Smoking Status: Never smoker Past Alcohol Use History: Occasional Past Drug Use History: None Reported - Past Family History Mother Family Medical History: Dementia Additional Family Medical History / Comment(s): HAD PACEMAKER, age 86, Father Family Medical History: Dementia Additional Family Medical History / Comment(s): Alzheimer <Tiffany Lara - Last Filed: 02/15/20 20:57> General Exam Limitations: no limitations <Tiffany Lara Denia - Last Filed: 02/15/20 20:57> - General Exam Comments Initial Comments: General: The patient is awake and alert, in no distress, and does not appear acutely ill. Eye: =3 mm pupils are equal, round and reactive to light, extra-ocular movements are intact. No nystagmus. There is normal conjunctiva bilaterally. No signs of icterus. Cardiovascular: There is a regular rate and rhythm. No murmur, rub or gallop is appreciated. Respiratory: Upon inspection of the anterior chest there is some yellowish ecchymosis over the left mid soft tissues with tenderness to palpation in that area the area of ecchymosis is 1 cm x 1 cm. Lungs are clear to auscultation, respirations are non-labored, breath sounds are equal. No wheezes, stridor, rales, or rhonchi. Gastrointestinal: Soft, non-distended, non-tender abdomen without masses or organomegaly noted. There is no rebound or guarding present. Musculoskeletal: Normal ROM, no tenderness. Strength 5/5. Sensation intact. Ra dial pulses equal bilaterally 2+. Neurological: A&O x 3. CN II-XII intact grossly, There are no obvious motor or sensory deficits. Coordination appears grossly intact. Speech is normal. Skin: Skin is warm and dry and no rashes or lesions are noted. Psychiatric: Cooperative, appropriate mood & affect, normal judgment. (Tiffany Lara) Course <David Paredes - Last Filed: 02/15/20 21:41> Vital Signs 02/15/20 02/15/20 18:55 21:06 Temperature 98.2 F 98.2 F Pulse Rate 69 65 Respiratory 18 18 Rate Blood Pressure 129/90 124/81 O2 Sat by Pulse 97 94 L Oximetry - Reevaluation(s) Reevaluation #1: 02/15/20 21:41 Patient presented personally evaluate this case patient did fall onto the ground with a flashlight striking the rib cage when he fell he had tenderness over this area however x-ray show no evidence of fracture. Patient discharged with rib contusions I do agree with the assessment and plan. (David Paredes) Medical Decision Making <Tiffany Lara - Last Filed: 02/15/20 20:57> - Medical Decision Making xr no fracture, denies chest pressure. pain only started after fall. She given incentive spirometer given suspicion for a rib contusion patient appears to have mild splinting to deep breathing. Patient is agreeable to care plan of pcp f/u, incentive spirometery once an hour x 1 week while awake and return for SOB or change in pain. (Tiffany Lara) Disposition Is patient prescribed a controlled substance at d/c from ED?: No Time of Disposition: 20:39 <Tiffany Lara - Last Filed: 02/15/20 20:57> <David Paredes - Last Filed: 02/15/20 21:41> Clinical Impression: Rib contusion, Rib pain on left side Disposition: HOME SELF-CARE Condition: Good Instructions (If sedation given, give patient instructions): Rib Contusion (ED) Additional Instructions: Please use medication as discussed. Please follow-up with family doctor in the next 2 days. Please return to emergency room if the symptoms increase or worsen or for any other concerns. Referrals: Hawk Gaona MD [Primary Care Provider] - 1-2 days
--- NOTE | 2020-02-15 20:35 | XR ---
EXAMINATION TYPE: XR ribs LT w pa chest xray DATE OF EXAM: 02/15/2020 COMPARISON: Chest x-ray 12/27/2019 HISTORY: Fall. Chest pain. Rib pain. TECHNIQUE: 5 views FINDINGS: Heart and mediastinum are normal. Lungs are clear. Costophrenic angles are clear. There are no hilar masses. There is no sign of pleural effusion or pneumothorax. Left ribs appear intact. Ther e is some arthritic change in the left shoulder joint. IMPRESSION: Normal chest. Normal left ribs.
[2020-02-15] MEDS ORDERED: HYDROcodone/APAP 7.5-325MG 1 EACH TAB PO ONE (20:44)
[2020-02-15 21:08] VITALS: BP 124/81; PULSE 65
== END 2020-02-15 21:12 | disposition home or self-care (01) ==
LOC: EC 18:17
DX: S20.212A Contusion of left front wall of thorax, initial encounter (principal); F41.9 Anxiety disorder, unspecified; I20.9 Angina pectoris, unspecified; E11.9 Type 2 diabetes mellitus without complications; K21.9 Gastro-esophageal reflux disease without esophagitis; E78.5 Hyperlipidemia, unspecified; I10 Essential (primary) hypertension; G47.33 Obstructive sleep apnea (adult) (pediatric); Z79.84 Long term (current) use of oral hypoglycemic drugs; Z79.82 Long term (current) use of aspirin; Z79.899 Other long term (current) drug therapy; Z88.5 Allergy status to narcotic agent; Z88.8 Allergy status to other drugs, medicaments and biological substances; Z91.041 Radiographic dye allergy status; Z99.89 Dependence on other enabling machines and devices; Z86.14 Personal history of Methicillin resistant Staphylococcus aureus infection; Z98.42 Cataract extraction status, left eye; Z98.41 Cataract extraction status, right eye; W01.0XXA Fall on same level from slipping, tripping and stumbling without subsequent striking against object, initial encounter
CPT/HCPCS: 99283

== ENCOUNTER 2020-06-14 05:58 | Emergency (ER) | payer MEDICARE, OTHER ==
[2020-06-14] MEDS ORDERED: SODIUM CHLORIDE 0.9% 1,000 ML IV STA (05:59)
[2020-06-14] MEDS ORDERED: Alteplase PER PHARMACY Stroke 1 EACH MISC MISCELLANE PRN (06:00)
--- NOTE | 2020-06-14 06:01 | ED ---
Neuro HPI - General Stated Complaint: Neuro Deficits Time Seen by Provider: 06/14/20 05:59 Source: RN notes reviewed, old records reviewed Mode of arrival: EMS Limitations: altered mental status, physical limitation - History of Present Illness Is the patient presenting with stroke symptoms?: Yes Last Known Well Date: 06/14/20 Last Known Well Time: 05:00 -: hour(s) Initial Comments: This is a 69-year-old male who presents today for evaluation of acute CVA. Patient is history of diabetes high blood pressure high cholesterol. Patient is a poor historian secondary to aphasia. History obtained from EMS and patient's prior charting Location: speech, right face, dysarthria (A facial), right leg, ataxia, altered Place: home Severity: severe Quality: constant Improves With: none Worsens With: none On Anticoagulants: No Context: sudden onset, found down (Patient got up to go to the bathroom and then was found on the ground) Associated Symptoms: denies other symptoms, weakness Treatments Prior to Arrival: none - Related Data Home Medications: Home Medications Medication Instructions Recorded Confirmed Citalopram Hydrobromide [CeleXA] 20 mg PO DAILY 09/13/17 12/27/19 Magnesium Oxide [Mag-Ox] 400 mg PO DAILY 09/13/17 12/27/19 Dicyclomine [Bentyl] 10 mg PO DAILY 01/22/19 12/27/19 Aspirin EC [Ecotrin] 325 mg PO DAILY 12/27/19 12/27/19 Clindamycin Topical Soln 1 applic TOPICAL BID PRN 12/27/19 12/27/19 [Cleocin-T Topical Soln] Clotrimazole/Betamethasone Dip 1 applic TOPICAL BID 12/27/19 12/27/19 [Lotrisone Cream] Doxycycline Monohydrate [Monodox] 100 mg PO BID 12/27/19 12/27/19 Dulaglutide [Trulicity] 1.5 mg SQ MO 12/27/19 12/27/19 Empagliflozin [Jardiance] 25 mg PO DAILY 12/27/19 12/27/19 HYDROcodone/APAP 7.5-325MG [[place] 1 tab PO DAILY 12/27/19 12/27/19 7.5-325] Ibuprofen [Motrin] 800 mg PO BID 12/27/19 12/27/19 Metoprolol Tartrate [Lopressor] 50 mg PO BID 12/27/19 12/27/19 Nystatin 100,000Unit/gm Cream 1 applic TOPICAL BID 12/27/19 12/27/19 [Mycostatin Cream] Tamsulosin HCl [Flomax] 0.4 mg PO DAILY 12/27/19 12/27/19 amLODIPine [Norvasc] 10 mg PO DAILY 12/27/19 12/27/19 metFORMIN HCL 1,000 mg PO BID 12/27/19 12/27/19 Previous Rx's Medication Instructions Recorded Atorvastatin [Lipitor] 20 mg PO DAILY #30 tab 12/20/17 Allergies/Adverse Reactions: Allergies Allergy/AdvReac Type Severity Reaction Status Date / Time dipyridamole AdvReac Nausea & Verified 02/15/20 19:00 [From Persantine] Vomiting Iodinated Contrast Media AdvReac Nausea & Verified 02/15/20 19:00 [Iodinated Contrast Media - Vomiting IV Dye] morphine AdvReac Nausea & Verified 02/15/20 19:00 Vomiting Review of Systems ROS Statement: Those systems with pertinent positive or pertinent negative responses have been documented in the HPI. ROS Other: All systems not noted in ROS Statement are negative. General Exam - General Exam Comments Initial Comments: NIH 12 General appearance: alert, in no apparent distress, anxious Head exam: Present: atraumatic, normocephalic, normal inspection Eye exam: Present: normal appearance, PERRL, EOMI. Absent: scleral icterus, conjunctival injection, periorbital swelling ENT exam: Present: normal exam, mucous membranes moist, other (R sided facial droop) Neck exam: Present: normal inspection. Absent: tenderness, meningismus, lymphadenopathy Respiratory exam: Present: normal lung sounds bilaterally. Absent: respiratory distress, wheezes, rales, rhonchi, stridor Cardiovascular Exam: Present: regular rate, normal rhythm, normal heart sounds. Absent: systolic murmur, diastolic murmur, rubs, gallop, clicks GI/Abdominal exam: Present: soft, normal bowel sounds. Absent: distended, tenderness, guarding, rebound, rigid Extremities exam: Present: normal inspection, full ROM, normal capillary refill. Absent: tenderness, pedal edema, joint swelling, calf tenderness Back exam: Present: normal inspection Neurological exam: Present: alert, oriented X3, CN II-XII intact, other (R fac ial droop, R arm paralysis) Psychiatric exam: Present: normal affect, normal mood Skin exam: Present: warm, dry, intact, normal color. Absent: rash Stroke MDM - Lab Data Result diagrams: 06/14/20 06:17 Lab Results 06/14/20 Range/Units 06:17 WBC 10.0 (3.8-10.6) k/uL RBC 4.44 (4.30-5.90) m/uL Hgb 13.8 (13.0-17.5) gm/dL Hct 42.7 (39.0-53.0) % MCV 96.3 (80.0-100.0) fL MCH 31.1 (25.0-35.0) pg MCHC 32.3 (31.0-37.0) g/dL RDW 13.7 (11.5-15.5) % Plt Count 230 (150-450) k/uL MPV 8.1 Neutrophils % 67 % Lymphocytes % 21 % Monocytes % 6 % Eosinophils % 3 % Basophils % 1 % Neutrophils # 6.7 (1.3-7.7) k/uL Lymphocytes # 2.1 (1.0-4.8) k/uL Monocytes # 0.6 (0-1.0) k/uL Eosinophils # 0.4 (0-0.7) k/uL Basophils # 0.1 (0-0.2) k/uL - NIH Stroke Scale 1a. Level of Consciousness: (1) not alert, arousable 1b. LOC Questions: (0) answers correctly 1c. LOC Commands: (2) performs no tasks correctly 2. Best Gaze: (1) partial gaze palsy 3. Visual: (0) no visual loss 4. Facial Palsy: (0) normal symmetrical movement 5a. Motor Arm Left: (0) no drift 5b. Motor Arm Right: (2) some gravity effort 6a. Motor Leg Left: (0) no drift 6b. Motor Leg Right: (2) some gravity effort 7. Limb Ataxia: (2) present 2 limbs 8. Sensory: (0) normal 9. Best Language: (2) severe aphasia 10. Dysarthria: (0) normal 11. Extinction/Inattention: (0) no abnormality - Thrombolytic Inclusion/Exclusion Thrombolytic Inclusion Criteria: Symptom Onset < 4.5 h, NIH Stroke Scale Deficit - EKG Data -: EKG Interpreted by Me (EKG is sinus rhythm 86, CA 148 QRS 90 QTC 473) Past Medical History Past Medical History: Chest Pain / Angina, Diabetes Mellitus, GERD/Reflux, Hyperlipidemia, Hypertension, Sleep Apnea/CPAP/BIPAP, Syncope Additional Past Medical History / Comment(s): IDDM, ERIKA cannot tolerate CPAP, varicose veins, hiatal hernia, constipation occas bleeding with stools, hemorrhoids, hyperkalemia History of Any Multi-Drug Resistant Organisms: MRSA Date of last positivie culture/infection: November 2017 MDRO Source:: Abdomen at [facility] per Dr. Verdin Past Surgical History: Back Surgery, Cholecystectomy, Heart Catheterization, Hernia Repair Additional Past Surgical History / Comment(s): arthroscopy right knee. bilateral cataracts, jeancarlos inguinal hernia repair, alban funloplasty(stomach wrapped) Past Anesthesia/Blood Transfusion Reactions: No Reported Reaction Past Psychological History: Anxiety Smoking Status: Never smoker Past Alcohol Use History: Occasional Past Drug Use History: None Reported - Past Family History Mother Family Medical History: Dementia Additional Family Medical History / Comment(s): HAD PACEMAKER, age 86, Father Family Medical History: Dementia Additional Family Medical History / Comment(s): Alzheimer Course Vital Signs 06/14/20 06/14/20 06/14/20 05:58 06:36 06:52 Pulse Rate 81 86 85 Respiratory 20 16 16 Rate Blood Pressure 183/102 152/83 152/90 O2 Sat by Pulse 96 94 L 97 Oximetry 06/14/20 07:07 Pulse Rate 84 Respiratory 21 Rate Blood Pressure 143/83 O2 Sat by Pulse 96 Oximetry - Reevaluation(s) Reevaluation #1: 06/14/20 06:54 Medical records reviewed Reevaluation #2: 06/14/20 06:54 Did speak extensively with patient's was at bedside now. Does state that patient was able to speak this morning walk without difficulty around 5 AM. Patient then became significantly worse when he hit the ground. EMS was called Reevaluation #3: 06/14/20 06:54 Spoke with regarding risks as wells as pros and cons of tpa. Patient is also able to understand and not aside although he remains a phasic, they decided to get tPa - Consultations Consultation #1: Did originally speak with neuro interventional on-call who were concerned for reason to give TPA, did again speak with him after decision was made with family to get to. They understand acceptable transferred Issackirit Pena Did speak with Maryuri Pena regarding neuro intervention Critical Care Time Critical Care Time: Yes Total Critical Care Time: 31 Disposition Clinical Impression: Cerebrovascular accident (CVA) Disposition: OTHER INSTITUTION NOT DEFINED Condition: Serious Is patient prescribed a controlled substance at d/c from ED?: No Referrals: Hawk Gaona MD [Primary Care Provider] - 1-2 days - Out of Hospital Transfer - Req. Specs Out of Hospital Transfer - Requested Specifics: Other Emergency Center (Maryuri Pena)
--- NOTE | 2020-06-14 06:22 | CT ---
EXAM: CT Head Without Intravenous Contrast CLINICAL HISTORY: ITS.REASON CT Reason: Neuro deficit, acute, stroke suspected TECHNIQUE: Axial computed tomography images of the head/brain without intravenous contrast. CTDI is 24.03 mGy and DLP is 520.4 mGy-cm. This CT exam was performed using one or more of the following dose reduction techniques: automated exposure control, adjustment of the mA and/or kV according to patient size, and/or use of iterative reconstruction technique. COMPARISON: No relevant prior studies available. FINDINGS: Brain: No hemorrhage, herniation, or mass effect. Chronic microvascular ischemic changes. Ventricles: No hydrocephalus. Age related cerebral volume loss. Bones/joints: Unremarkable. Soft tissues: Unremarkable. Sinuses: Unremarkable. Mastoid air cells: Clear. IMPRESSION: No acute hemorrhage, hydrocephalus, or mass effect.
--- NOTE | 2020-06-14 06:26 | CT ---
EXAM: CT Angiography Head With Intravenous Contrast CLINICAL HISTORY: ITS.REASON CT Reason: Neuro deficit, acute, stroke suspected TECHNIQUE: Axial computed tomographic angiography images of the head with intravenous contrast. CTDI is 24.03 mGy and DLP is 520.4 mGy-cm. This CT exam was performed using one or more of the following dose reduction techniques: automated exposure control, adjustment of the mA and/or kV according to patient size, and/or use of iterative reconstruction technique. MIP reconstructed images were created and reviewed. COMPARISON: No relevant prior studies available. FINDINGS: Right internal carotid artery: Intracranial segment is patent with no significant stenosis. No aneurysm. Right anterior cerebral artery: No occlusion or significant stenosis. No aneurysm. Right middle cerebral artery: No occlusion or significant stenosis. No aneurysm. 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 No aneurysm. Right vertebral artery: Unremarkable. Left internal carotid artery: Intracranial segment is patent with no significant stenosis. No aneurysm. Left anterior cerebral artery: No occlusion or significant stenosis. No aneurysm. Left middle cerebral artery: No occlusion or significant stenosis. No aneurysm. Left posterior cerebral artery: No occlusion or significant stenosis. No aneurysm. Left vertebral artery: Unremarkable. Basilar artery: No occlusion or significant stenosis. No aneurysm. 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 EXAM: CT Angiography Neck With Intravenous Contrast CLINICAL HISTORY: ITS.REASON CT Reason: Neuro deficit, acute, stroke suspected TECHNIQUE: Axial computed tomographic angiography images of the neck with intravenous contrast. CTDI is 24.03 mGy and DLP is 520.4 mGy-cm. This CT exam was performed using one or more of the following dose reduction techniques: automated exposure control, adjustment of the mA and/or kV according to patient size, and/or use of iterative reconstruction technique. MIP reconstructed images were created and reviewed. COMPARISON: No relevant prior studies available. FINDINGS: VASCULATURE: Right common carotid artery: No significant stenosis. No dissection. Right internal carotid artery: Mild narrowing from atherosclerosis. No dissection. Right vertebral artery: No significant stenosis. No dissection. Left common carotid artery: No significant stenosis. No dissection. Left internal carotid artery: Mild narrowing from atherosclerosis. No dissection. Left vertebral artery: No significant stenosis. No dissection. NECK: Bones/joints: No acute fracture. No dislocation. CAROTID STENOSIS REFERENCE USING NASCET CRITERIA: % ICA stenosis = (1 - narrowest ICA diameter/diameter of distal cervical ICA) x 100. Mild - <50% stenosis. Moderate - 50-69% stenosis. Severe - 70-94% stenosis. Near occlusion - 95-99% stenosis. Occluded - 100% stenosis. IMPRESSION: No significant stenosis. <MYCVCSECTION> Communications: 06/14/20 06:28 Call Doctor Regarding Above results, called Dr. Gallegos on 06/14 06:28 (-05:00)
--- NOTE | 2020-06-14 06:28 | XR ---
EXAM: XR Chest, 1 View CLINICAL HISTORY: ITS.REASON XR Reason: altered mental status TECHNIQUE: Frontal view of the chest. COMPARISON: No relevant prior studies available. FINDINGS: Lungs: No consolidation or mass. Pleural space: No acute findings Heart: No cardiomegaly. Bones/joints: No acute findings. IMPRESSION: No acute cardiopulmonary process.
[2020-06-14] MEDS ORDERED: ALTEPLASE BOLUS 7 MG in EMPTY SYRINGE 1 SYR IV STA (06:41)
[2020-06-14] MEDS ORDERED: ALTEPLASE 66 MG in EMPTY BAG 1 BAG IV STA (06:41)
[2020-06-14 06:42] LABS: Basophils # (A) 0.1 k/uL (0-0.2); Basophils % (A) 1 %; Eosinophils # (A) 0.4 k/uL (0-0.7); Eosinophils % (A) 3 %; HCT 42.7 % (39.0-53.0); HGB 13.8 gm/dL (13.0-17.5); Lymphocytes # (A) 2.1 k/uL (1.0-4.8); Lymphocytes % (A) 21 %; MCH 31.1 pg (25.0-35.0); MCHC 32.3 g/dL (31.0-37.0); MCV 96.3 fL (80.0-100.0); Mean Platelet Volume 8.1; Monocytes # (A) 0.6 k/uL (0-1.0); Monocytes % (A) 6 %; Neutrophils # (A) 6.7 k/uL (1.3-7.7); Neutrophils % (A) 67 %; Platelet Count 230 k/uL (150-450); RBC 4.44 m/uL (4.30-5.90); RDW 13.7 % (11.5-15.5)
[2020-06-14 06:54] LABS: ALT 24 U/L (4-49); African American GFR (CKD) >90 (>60 ml/min/1.73 sqM); Albumin 3.2 g/dL (3.5-5.0); Anion Gap 5 mmol/L; Blood Urea Nitrogen 10 mg/dL (9-20); Calcium 8.2 mg/dL (8.4-10.2); Carbon Dioxide 27 mmol/L (22-30); Chloride 103 mmol/L (98-107); Glucose 144 mg/dL (74-99); Non-African American GFR(CKD) 88 (>60 ml/min/1.73 sqM); Sodium 135 mmol/L (137-145); Total Bilirubin 0.4 mg/dL (0.2-1.3); Total Protein 5.7 g/dL (6.3-8.2)
[2020-06-14 07:10] LABS: Partial Thromboplastin Time 24.3 sec (22.0-30.0); Prothrombin Time 10.7 sec (9.0-12.0)
[2020-06-14 07:31] LABS: AST 20 U/L (17-59); Alkaline Phosphatase 68 U/L (38-126); Potassium 4.3 mmol/L (3.5-5.1)
[2020-06-14 07:32] VITALS: BP 150/89; PULSE 85; RESP 18
== END 2020-06-14 08:15 | disposition other institution (70) ==
LOC: EC 05:58
DX: I63.9 Cerebral infarction, unspecified (principal); R47.01 Aphasia; I10 Essential (primary) hypertension; E11.9 Type 2 diabetes mellitus without complications; K21.9 Gastro-esophageal reflux disease without esophagitis; G47.33 Obstructive sleep apnea (adult) (pediatric); I20.9 Angina pectoris, unspecified; F41.9 Anxiety disorder, unspecified; Z79.1 Long term (current) use of non-steroidal anti-inflammatories (NSAID); Z79.84 Long term (current) use of oral hypoglycemic drugs; Z79.891 Long term (current) use of opiate analgesic; Z79.899 Other long term (current) drug therapy; Z79.82 Long term (current) use of aspirin; Z91.041 Radiographic dye allergy status; Z88.5 Allergy status to narcotic agent; Z88.8 Allergy status to other drugs, medicaments and biological substances; Z99.89 Dependence on other enabling machines and devices
CPT/HCPCS: 36415; 93005; 80053; 84484; 85025; 85610; 85730; 71045; 70496; 70450; 70498; 99291; 96365; 96361 ×2; J2997; Q9967

== ENCOUNTER 2020-07-16 12:32 | Inpatient (IN) | payer MEDICARE, OTHER ==
[2020-07-16 15:26] LABS: Basophils % (A) 0 %; Eosinophils # (A) 0.2 k/uL (0-0.7); Eosinophils % (A) 2 %; HCT 42.2 % (39.0-53.0); HGB 14.3 gm/dL (13.0-17.5); Lymphocytes # (A) 2.5 k/uL (1.0-4.8); Lymphocytes % (A) 27 %; MCH 32.4 pg (25.0-35.0); MCHC 33.8 g/dL (31.0-37.0); MCV 95.8 fL (80.0-100.0); Mean Platelet Volume 7.8; Monocytes # (A) 0.5 k/uL (0-1.0); Monocytes % (A) 6 %; Neutrophils # (A) 5.6 k/uL (1.3-7.7); Neutrophils % (A) 63 %; Platelet Count 172 k/uL (150-450); RDW 13.4 % (11.5-15.5)
[2020-07-16 15:35] LABS: ALT 28 U/L (4-49); AST 19 U/L (17-59); African American GFR (CKD) >90 (>60 ml/min/1.73 sqM); Albumin 3.8 g/dL (3.5-5.0); Albumin/Globulin Ratio 1.4; Alkaline Phosphatase 71 U/L (38-126); Anion Gap 5 mmol/L; Blood Urea Nitrogen 6 mg/dL (9-20); Calcium 9.3 mg/dL (8.4-10.2); Carbon Dioxide 34 mmol/L (22-30); Chloride 98 mmol/L (98-107); Globulin 2.7 g/dL; Glucose 127 mg/dL (74-99); Non-African American GFR(CKD) 89 (>60 ml/min/1.73 sqM); Potassium 4.7 mmol/L (3.5-5.1); Sodium 137 mmol/L (137-145); Total Bilirubin 0.5 mg/dL (0.2-1.3); Total Protein 6.5 g/dL (6.3-8.2)
[2020-07-16] MEDS: SODIUM CHLORIDE 0.9% 1,000 ML IV SCH (15:38)
[2020-07-16 16:01] LABS: Appearance,Urine Clear (Clear); Bilirubin,Urine Negative (Negative); Blood,Urine Negative (Negative); Color,Urine Light Yellow; Glucose,Urine (UA) Negative (Negative); Ketones,Urine Negative (Negative); Leukocyte Esterase,Urine Negative (Negative); Nitrite,Urine Negative (Negative); PH, Urine 6.5 (5.0-8.0); Protein,Urine Negative (Negative); Specific Gravity,Urine 1.009 (1.001-1.035); Urobilinogen,Urine <2.0 mg/dL (<2.0)
--- NOTE | 2020-07-16 16:28 | XR ---
EXAMINATION TYPE: XR chest 2V DATE OF EXAM: 07/16/2020 COMPARISON: 06/14/2020 HISTORY: 69 year-old male shortness of breath, dyspnea TECHNIQUE: Frontal and lateral views FINDINGS: Heart normal size. Loop recorder device projects over the left heart margin. Aorta and pulmonary vasc ulature within normal limits. No consolidation or pleural effusion seen. IMPRESSION: No acute cardiopulmonary process.
[2020-07-16 16:54] LABS: Glucose,Whole Blood 141 mg/dL (75-99)
[2020-07-16] MEDS: GABAPENTIN 100 MG CAP PO SCH ×2 (17:13→22:11)
[2020-07-16] MEDS: methylPREDNISolone SOD SUCCI 40 MG/ML 1 ML VIAL IV SCH ×2 (17:16→22:58)
[2020-07-16] MEDS: ATORVASTATIN 80 MG TAB PO SCH (20:01)
[2020-07-16 20:02] LABS: Glucose,Whole Blood 204 mg/dL (75-99)
[2020-07-16] MEDS: HYDROcodone/APAP 7.5-325MG 1 EACH TAB PO PRN (22:59)
[2020-07-17 00:59] LABS: Hemoglobin A1C 6.6 % (4.0-6.0)
[2020-07-17] MEDS: SODIUM CHLORIDE 0.9% 1,000 ML IV SCH ×2 (05:26→15:27)
[2020-07-17 06:54] LABS: Glucose,Whole Blood 241 mg/dL (75-99)
[2020-07-17] MEDS: GABAPENTIN 100 MG CAP PO SCH ×4 (07:32→20:47)
[2020-07-17] MEDS: amLODIPine 5 MG TAB PO SCH (07:32)
[2020-07-17] MEDS: methylPREDNISolone SOD SUCCI 40 MG/ML 1 ML VIAL IV SCH ×3 (07:32→23:00)
[2020-07-17] MEDS: MULTIVITAMINS, THERA 1 EACH TAB PO SCH (07:32)
[2020-07-17] MEDS: ASPIRIN 81 MG PO SCH (07:32)
[2020-07-17] MEDS: CLOPIDOGREL 75 MG TAB PO SCH (07:33)
[2020-07-17] MEDS: DICYCLOMINE 10 MG CAP PO SCH (07:33)
[2020-07-17] MEDS: metFORMIN 500 MG TAB PO SCH (07:33)
[2020-07-17] MEDS: MAGNESIUM OXIDE 400 MG TAB PO SCH (07:33)
[2020-07-17] MEDS: PANTOPRAZOLE 40 MG TABLET PO SCH (07:33)
[2020-07-17 08:53] LABS: Basophils # (A) 0 X 10*3/uL (0.00-0.10); Basophils % (A) 0 %; Eosinophils # (A) 0 X 10*3/uL (0.04-0.35); Eosinophils % (A) 0 %; HCT 41.6 % (39.6-50.0); HGB 13.9 g/dL (13.0-17.0); Lymphocytes # (A) 1.51 X 10*3/uL (0.90-5.00); Lymphocytes % (A) 11.6 %; MCHC 33.4 g/dL (32.0-37.0); MCV 95.9 fL (80.0-97.0); Mean Platelet Volume 10.8 fL (9.5-12.2); Monocytes # (A) 0.09 X 10*3/uL (0.20-1.00); Monocytes % (A) 0.7 %; Neutrophils # (A) 11.34 X 10*3/uL (1.80-7.70); Neutrophils % (A) 86.9 %; Platelet Count 190 X 10*3/uL (140-440); RBC 4.34 X 10*6/uL (4.40-5.60); RDW 13.6 % (11.5-14.5); WBC 13.05 X 10*3/uL (4.50-10.00)
[2020-07-17 10:06] LABS: African American GFR (CKD) 100.6 (60.0-200.0); Albumin 4.2 g/dL (3.80-4.90); Albumin/Globulin Ratio 2.63 (1.60-3.17); Anion Gap 11.3 mmol/L (4.00-12.00); Carbon Dioxide 23.7 mmol/L (21.6-31.8); Globulin 1.6 g/dL (1.6-3.3); Non-African American GFR(CKD) 86.8 (60.0-200.0); Potassium 4.6 mmol/L (3.5-5.5); Total Bilirubin 0.5 mg/dL (0.2-1.2); Total Protein 5.8 g/dL (6.2-8.2)
--- NOTE | 2020-07-17 10:32 | HP ---
HISTORY AND PHYSICAL A 69-year-old white male came in with lightheaded, dizziness, near syncope, and difficulty breathing. He was admitted with COPD exacerbation. Consult with Dr. Mendieta. He also had a recent stroke. He is having significant shortness of breath, difficulty swallowing ever since his stroke. Feeling like he was going pass out. His sugars when admitted over in the mid 100s 200s. He has negative troponins x2. MEDICATIONS: Medications at home include: 1. Norvasc 5 mg daily. 2. Aspirin 81 mg daily. 3. Lipitor 80 with daily. 4. Plavix 75 mg daily. 5. Bentyl 10 mg p.r.n. 6. Neurontin 100 t.i.d. 7. [place] 7.5 q. day p.r.n. 8. Mag oxide 400 daily. 9. Metformin 500 daily. 10.Methylprednisolone 20 IV q.a.m. 11.Multivitamin daily. 12.Protonix 40 daily. 13.Fluid rehydration. REVIEW OF SYSTEMS: Fourteen-point review of systems: Difficulty swallowing, lightheaded, dizziness, near- syncope, difficulty with any ambulation or movement. PHYSICAL EXAMINATION: VITAL SIGNS: Temperature 97 to 98. Blood pressures are 140s to 180s over 89 to 111. O2 is 96 on room air. CARDIOVASCULAR: S1, S2. LUNGS: Decreased breath sounds x4, scattered wheeze x4. HEMATOLOGY: Negative Homans. PSYCH: Fair mood and affect. CONSTITUTIONALLY: Has difficulty with speech and expressive aphasia. ASSESSMENT: 1. Recent cerebrovascular accident with dysphagia, expressive aphasia. 2. Dehydration. 3. Chronic obstructive pulmonary disease. Has been started on IV steroids. Get Neurology consult. Dietitian consult. Rehydrate the patient. Prognosis guarded. Wait for consults. MMODL / IJN: [id number] /
--- NOTE | 2020-07-17 10:43 | P.CNPUL ---
History of Present Illness Consult date: 07/17/20 Reason for consult: dyspnea, cough Chief complaint: Shortness of breath, syncope History of present illness: Patient is admitted directly from primary care's office for evaluation of syncope with neurology on consultation This is a 69-year-old male patient originally presented in emergency department on June 14 for evaluation of acute CVA he has significant problem of hypertension hypertensive cardiovascular disease and dyslipidemia patient was found to have a face E a right facial drooping and right leg weakness, of acute onset, CT of the head is negative for any acute stroke, patient was given TPA and was shipped to [facility]. Patient has prior significant history of the mood disorder depression, type 2 diabetes mellitus hypertension hypertensive cardiovascular disease. BPH, x-ray details are not available, patient admitted directly from doctor's office chest x-ray performed revealed no significant pathology, patient is complaining of mild shortness of breath continued to have a face E a and right-sided weakness Review of Systems All systems: negative Past Medical History Past Medical History: Chest Pain / Angina, Diabetes Mellitus, GERD/Reflux, Hyperlipidemia, Hypertension, Sleep Apnea/CPAP/BIPAP, Syncope Additional Past Medical History / Comment(s): IDDM, ERIKA cannot tolerate CPAP, v aricose veins, hiatal hernia, constipation occas bleeding with stools, hemorrhoids, hyperkalemia History of Any Multi-Drug Resistant Organisms: MRSA Date of last positivie culture/infection: November 2017 MDRO Source:: Abdomen at [facility] per Dr. Verdin Past Surgical History: Back Surgery, Cholecystectomy, Heart Catheterization, Hernia Repair Additional Past Surgical History / Comment(s): arthroscopy right knee. bilateral cataracts, jeancarlos inguinal hernia repair, alban funloplasty(stomach wrapped) Past Anesthesia/Blood Transfusion Reactions: No Reported Reaction Past Psychological History: Anxiety Additional Psychological History / Comment(s): Pt resides with his spouse. He is independent. has a glucometer and bp machine. Smoking Status: Never smoker Past Alcohol Use History: Occasional Additional Past Alcohol Use History / Comment(s): Occasional beer. Past Drug Use History: None Reported - Past Family History Mother Family Medical History: Dementia Additional Family Medical History / Comment(s): HAD PACEMAKER, age 86, Father Family Medical History: Dementia Additional Family Medical History / Comment(s): Alzheimer Medications and Allergies Home Medications Medication Instructions Recorded Confirmed Type Magnesium Oxide [Mag-Ox] 400 mg PO DAILY 09/13/17 07/16/20 History Dicyclomine [Bentyl] 10 mg PO DAILY 01/22/19 07/16/20 History Dulaglutide [Trulicity] 1.5 mg SQ SA 12/27/19 07/16/20 History HYDROcodone/APAP 7.5-325MG [[place] 1 tab PO DAILY PRN 12/27/19 07/16/20 History 7.5-325] metFORMIN HCL 500 mg PO DAILY 12/27/19 07/16/20 History Aspirin EC [Ecotrin Low Dose] 81 mg PO DAILY 07/16/20 07/16/20 History Atorvastatin [Lipitor] 80 mg PO HS 07/16/20 07/16/20 History Clopidogrel Bisulfate [Plavix] 75 mg PO DAILY 07/16/20 07/16/20 History Esomeprazole Magnesium [NexIUM 20 mg PO DAILY 07/16/20 07/16/20 History 24Hr] Gabapentin [Neurontin] 100 mg PO TID 07/16/20 07/16/20 History Multivitamins, Thera [Multivitamin 1 tab PO DAILY 07/16/20 07/16/20 History (formulary)] Nitroglycerin Sl Tabs [Nitrostat] 0.4 mg SL Q5M PRN 07/16/20 07/16/20 History Polymyxin B-Trimeth Sulf Ophth 2 - 3 drops BOTH EYES BID 07/16/20 07/16/20 History [Polytrim Opthalmic] Ranitidine HCl 150 mg PO BID 07/16/20 07/16/20 History amLODIPine [Norvasc] 5 mg PO DAILY 07/16/20 07/16/20 History Allergies Allergy/AdvReac Type Severity Reaction Status Date / Time dipyridamole AdvReac Nausea & Verified 07/16/20 14:36 [From Persantine] Vomiting Iodinated Contrast Media AdvReac Nausea & Verified 07/16/20 14:36 [Iodinated Contrast Media - Vomiting IV Dye] morphine AdvReac Nausea & Verified 07/16/20 14:36 Vomiting Physical Exam Vitals: Vital Signs Temp Pulse Resp BP Pulse Ox 07/17/20 07:00 97.5 F L 96 16 181/111 98 07/17/20 02:00 97.9 F 90 18 144/89 96 07/17/20 01:59 90 07/16/20 20:00 98.1 F 79 16 169/89 96 07/16/20 13:00 97.9 F 75 16 157/86 97 Intake and Output 07/16/20 07/17/20 07/17/20 22:59 06:59 14:59 Intake Total 118 Output Total 200 900 Balance -82 -900 Intake: Oral 118 Output: Urine 200 900 Other: Voiding Method Toilet Urinal # Voids 1 3 - Constitutional General appearance: average body habitus, cooperative, disheveled - EENT Eyes: EOMI, PERRLA Ears: bilateral: normal - Neck Carotids: bilateral: upstroke normal Thyroid: bilateral: normal size - Respiratory Respiratory: bilateral: diminished - Cardiovascular Rhythm: regular Heart sounds: normal: S1, S2 - Gastrointestinal General gastrointestinal: normal bowel sounds - Musculoskeletal Musculoskeletal: generalized weakness, right sided weakness Results - Laboratory Findings CBC and BMP: 07/17/20 05:02 07/17/20 05:02 PT/INR, D-dimer D-Dimer 0.31 mg/L FEU (<0.60) 07/16/20 15:17 Abnormal lab findings: Abnormal Labs 07/16/20 07/16/20 07/16/20 15:17 15:17 16:53 WBC RBC Immature Gran # Neutrophils # Monocytes # Eosinophils # Sodium Carbon Dioxide 34 H BUN 6 L BUN/Creatinine Ratio Glucose 127 H POC Glucose (mg/dL) 141 H Hemoglobin A1c 6.6 H Total Protein 07/16/20 07/17/20 07/17/20 20:00 05:02 05:02 WBC 13.05 H RBC 4.34 L Immature Gran # 0.11 H Neutrophils # 11.34 H Monocytes # 0.09 L Eosinophils # 0 L Sodium 134 L Carbon Dioxide BUN BUN/Creatinine Ratio 10.00 L Glucose 271 H POC Glucose (mg/dL) 204 H Hemoglobin A1c Total Protein 5.8 L 07/17/20 06:51 WBC RBC Immature Gran # Neutrophils # Monocytes # Eosinophils # Sodium Carbon Dioxide BUN BUN/Creatinine Ratio Glucose POC Glucose (mg/dL) 241 H Hemoglobin A1c Total Protein - Diagnostic Findings Chest x-ray: report reviewed, image reviewed Assessment and Plan Assessment: Syncope Shortness of breath however no evidence of pneumonia is seen stable now Right-sided hemiparesis with aphasia Hypertension hypertensive cardiovascular disease Type 2 diabetes mellitus Plan: Neurological evaluation pending Continue physical therapy deep breathing exercise incentive spirometry Continue home medications Follow clinical course closely Repeat chest x-ray tomorrow Further recommendations pending plan of care as per clinical response of patient
[2020-07-17 11:28] LABS: Glucose,Whole Blood 331 mg/dL (75-99)
--- NOTE | 2020-07-17 12:31 | P.CNNES ---
History of Present Illness Consult date: 07/17/20 Requesting physician: Hawk Gaona Reason for Consult: Recent CVA History of Present Illness: Patient is a 69-year-old male came to the hospital yesterday at 12:57 PM for syncope. Patient tells me that he recently suffered from a stroke about 10 days ago, although on review of records, it was on 06/14/2020 when he presented with aphasia. Patient is severe dysarthria, weakness and ataxia of the right side. Patient was given TPA, and was transferred to [facility]. Patient's residual symptoms from stroke include at least moderate dysarthria, right facial weakness and some numbness of the right arm. Patient stayed in the hospital for 4 days. Patient denies any problem with gait or weakness in the legs. Does not use any assistive device. Patient was placed on Plavix after the stroke. Patient states that he came to the hospital yesterday at 12:57 PM because he was having headache pointing to bifrontal region, which he rated 3-4/10 and his blood pressure was high. He denies any new focal symptoms like worsening of speech or weakness. Patient says that he does get headache, but is not usual a nd is different. The headache has gotten worse, now he rates 6-8/10 again pointing to bifrontal region. Complains of burning in the eyes. Patient vitals on arrival was blood pressure 157/86, pulse rate 75, temperature 97.9. Patient's blood test shows WBC 13.05, hemoglobin 13.9, platelets 190. Sodium 134 potassium 4.6, normal renal functions. Hepatic panel normal, troponin negative. Patient's last hemoglobin A1c 6.6 on 07/16/2020, total cholesterol 186, LDL 61, HDL 74 and triglycerides 256. B12 was 589 on 02/21/2019, TSH is normal. Chest x-ray showed no acute cardiopulmonary process. 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 Otherwise vertebrobasilar system was patent. CTA of the neck 06/14/2020 showed no significant stenosis. Patient had a normal computed tomography scan of head on 06/14/2020 Patient has previously been seen by Dr. Cortes on 02/21/2019 for dizziness, feeling faint, shortness of breath and diaphoresis. There was no loss of consciousness at that time. Patient had an MRI of brain 01/23/2019, which revealed age-related atrophy and chronic small vessel ischemic disease. No acute process. Transthoracic echo on 01/23/2019 showed left ventricle size and function normal with EF 55-60%. Normal left atrial size. Interatrial and interventricular septum intact. No valvular vegetation. Patient also had an MRA of brain also at that time, which was negative for any vertebrobasilar insufficiency. No large vessel occlusion or stenosis. Patient lives with his . He does not use any assistive device even after the stroke. He does have a cane and walker but does not use it. Patient has history of diabetes since 1999, hypertension. Never smoked, hardly ever drinks any alcohol. Review of Systems Headaches, slurred speech, some numbness in the right arm. Denies any problem with gait. Denies any neck pain and back pain, denies abdominal pain nausea vomiting diarrhea. Denies double vision, loss of vision. Denies shortness of breath wheezing cough, chest pain. All other review of systems reviewed and noncontributory. Past Medical History Past Medical History: Chest Pain / Angina, Diabetes Mellitus, GERD/Reflux, Hyperlipidemia, Hypertension, Sleep Apnea/CPAP/BIPAP, Syncope Additional Past Medical History / Comment(s): IDDM, ERIKA cannot tolerate CPAP, varicose veins, hiatal hernia, constipation occas bleeding with stools, hemorrhoids, hyperkalemia History of Any Multi-Drug Resistant Organisms: MRSA Date of last positivie culture/infection: November 2017 MDRO Source:: Abdomen at [facility] per Dr. Verdin Past Surgical History: Back Surgery, Cholecystectomy, Heart Catheterization, Hernia Repair Additional Past Surgical History / Comment(s): arthroscopy right knee. bilateral cataracts, jeancarlos inguinal hernia repair, alban funloplasty(stomach wrapped) Past Anesthesia/Blood Transfusion Reactions: No Reported Reaction Past Psychological History: Anxiety Additional Psychological History / Comment(s): Pt resides with his spouse. He is independent. has a glucometer and bp machine. Smoking Status: Never smoker Past Alcohol Use History: Occasional Additional Past Alcohol Use History / Comment(s): Occasional beer. Past Drug Use History: None Reported - Past Family History Mother Family Medical History: Dementia Additional Family Medical History / Comment(s): HAD PACEMAKER, age 86, Father Family Medical History: Dementia Additional Family Medical History / Comment(s): Alzheimer Medications and Allergies Home Medications Medication Instructions Recorded Confirmed Type RX: Magnesium Oxide [Mag-Ox] 400 mg PO DAILY 09/13/17 07/16/20 History RX: Dicyclomine [Bentyl] 10 mg PO DAILY 01/22/19 07/16/20 History RX: Dulaglutide [Trulicity] 1.5 mg SQ SA 12/27/19 07/16/20 History RX: HYDROcodone/APAP 7.5-325MG 1 tab PO DAILY PRN 12/27/19 07/16/20 History [[place] 7.5-325] RX: metFORMIN HCL 500 mg PO DAILY 12/27/19 07/16/20 History Aspirin EC [Ecotrin Low Dose] 81 mg PO DAILY 07/16/20 07/16/20 History Atorvastatin [Lipitor] 80 mg PO HS 07/16/20 07/16/20 History Clopidogrel Bisulfate [Plavix] 75 mg PO DAILY 07/16/20 07/16/20 History Esomeprazole Magnesium [NexIUM 20 mg PO DAILY 07/16/20 07/16/20 History 24Hr] Gabapentin [Neurontin] 100 mg PO TID 07/16/20 07/16/20 History Multivitamins, Thera [Multivitamin 1 tab PO DAILY 07/16/20 07/16/20 History (formulary)] Nitroglycerin Sl Tabs [Nitrostat] 0.4 mg SL Q5M PRN 07/16/20 07/16/20 History Polymyxin B-Trimeth Sulf Ophth 2 - 3 drops BOTH EYES BID 07/16/20 07/16/20 History [Polytrim Opthalmic] RX: Ranitidine HCl 150 mg PO BID 07/16/20 07/16/20 History amLODIPine [Norvasc] 5 mg PO DAILY 07/16/20 07/16/20 History Allergies Allergy/AdvReac Type Severity Reaction Status Date / Time dipyridamole AdvReac Nausea & Verified 07/16/20 14:36 [From Persantine] Vomiting Iodinated Contrast Media AdvReac Nausea & Verified 07/16/20 14:36 [Iodinated Contrast Media - Vomiting IV Dye] morphine AdvReac Nausea & Verified 07/16/20 14:36 Vomiting Physical Examination - Vital Signs Vital Signs: Vital Signs Temp Pulse Resp BP Pulse Ox 07/17/20 07:00 97.5 F L 96 16 181/111 98 07/17/20 02:00 97.9 F 90 18 144/89 96 07/17/20 01:59 90 07/16/20 20:00 98.1 F 79 16 169/89 96 07/16/20 13:00 97.9 F 75 16 157/86 97 Intake and Output 07/16/20 07/17/20 07/17/20 22:59 06:59 14:59 Intake Total 118 Output Total 200 900 225 Balance -82 -900 -225 Intake: Oral 118 Output: Urine 200 900 225 Other: Voiding Method Toilet Urinal # Voids 1 3 On examination patient is an elderly male, very pleasant, in no acute distress. Patient is alert and awake fully oriented. Patient's speech is moderately dysarthric but no aphasia. He can name repeat and write. On cranial nerve examination pupils are round and reacting to light, visual medina are full on confrontation, extraocular muscles are intact with no nystagmus. Face has significant right lower facial weakness with sparing of the forehead region. This is consistent with central facial weakness on the right side. Tongue protrudes to the right. Facial sensations are equal. Palatal elevation is normal, hearing and shoulder shrug normal. On muscle strength testing patient is right pronation no drift. The strength is completely normal in the arms and legs distally and proximally. Reflexes are 1+ in the upper limbs, 2 at both knees, 1 at ankles and plantars are downgoing bilaterally. Sensory to touch is decreased only in the right arm as compared to the left but is equal on the face and the legs. No neglect on double simultaneous stimulation. Tone and bulk of muscles normal. Patient walks without any device. Gait appears normal. On general examination there is no carotid bruit or murmur, peripheral pulses present. Abdomen soft nontender, chest clear. Results - Laboratory Findings CBC and BMP: 07/17/20 05:02 07/17/20 05:02 Abnormal Lab Findings: Abnormal Labs 07/16/20 07/16/20 07/16/20 15:17 15:17 16:53 WBC RBC Immature Gran # Neutrophils # Monocytes # Eosinophils # Sodium Carbon Dioxide 34 H BUN 6 L BUN/Creatinine Ratio Glucose 127 H POC Glucose (mg/dL) 141 H Hemoglobin A1c 6.6 H Total Protein 07/16/20 07/17/20 07/17/20 20:00 05:02 05:02 WBC 13.05 H RBC 4.34 L Immature Gran # 0.11 H Neutrophils # 11.34 H Monocytes # 0.09 L Eosinophils # 0 L Sodium 134 L Carbon Dioxide BUN BUN/Creatinine Ratio 10.00 L Glucose 271 H POC Glucose (mg/dL) 204 H Hemoglobin A1c Total Protein 5.8 L 07/17/20 06:51 WBC RBC Immature Gran # Neutrophils # Monocytes # Eosinophils # Sodium Carbon Dioxide BUN BUN/Creatinine Ratio Glucose POC Glucose (mg/dL) 241 H Hemoglobin A1c Total Protein Assessment and Plan Assessment: * Recent history of acute ischemic stroke on 06/14/2020, with residual moderate dysarthria, and right facial weakness, came with new onset headaches involving bifrontal region, high blood pressure. However since in the hospital, blood pressure has been running mild to moderately elevated. Patient denies any syncopal spells, or fainting. * Hypertension * Diabetes Plan: * CT head, to rule out secondary causes of new onset headache. * Continue dual antiplatelet medications, and high dose Lipitor 80 mg daily. * Fioricet as needed for headache. * Diabetes is controlled, with A1c 6.6. * Lipids also controlled. * We will obtain records from [facility]. * Optimize control of blood pressure, as per IM. * We will follow. Addendum: Received records from [facility] patient was admitted on 06/14/2020, discharged on 06/20/2020. Patient transferred post-TPA from [facility] to [place]. He was admitted to ICU. No surgical intervention was needed. Patient was discharged on aspirin, Plavix, Lipitor 40 mg and sliding scale coverage. MRI of the brain demonstrated acute to subacute ischemic infarction in the posterior left frontal lobe with regional sulcal effacement. Transthoracic echo was normal. Carotid Doppler showed less than 50% stenosis of the ICA bilaterally. Patient had a transesophageal echocardiogram performed, (as mentioned in the discharge summary), however the result was not reported, and the hard copy of the EEG not available. Apparently loop recorder was also done by Dr. Petit, and cerebral angiography was also done. Again the results are not available.
--- NOTE | 2020-07-17 13:15 | CT ---
EXAMINATION TYPE: CT brain wo con DATE OF EXAM: 07/17/2020 COMPARISON: 06/14/2020 HISTORY: headache, recent cva CT DLP: [address] of the brain was performed. The ventricles, basal cisterns and sulci overlying the cerebral convexities demonstrate mild enlargem ent. There is a new wedge-shaped defect high left frontal lobe compatible with interval CVA. No addit ional areas of abnormal cortical attenuation seen. There is no evidence for intracranial hemorrhage or sulcal effacement. There is decreased attenuation about the periventricular white matter and deep white matter of both c erebral hemispheres, compatible with chronic small vessel ischemia. Differential diagnosis does inclu de demyelination. No mass effects are seen.No midline shift. Osseous calvarium is intact. If symptoms persist consider MRI. IMPRESSION: 1. There is a new wedge-shaped defect high left frontal lobe compatible with interval CVA likely radha cute. No additional areas of abnormal cortical attenuation seen.
[2020-07-17 14:54] VITALS: BMI 25.9
[2020-07-17] MEDS: HYDROcodone/APAP 7.5-325MG 1 EACH TAB PO PRN (15:26)
[2020-07-17 17:21] LABS: Glucose,Whole Blood 289 mg/dL (75-99)
[2020-07-17] MEDS: ATORVASTATIN 80 MG TAB PO SCH (20:40)
[2020-07-17 20:58] LABS: Glucose,Whole Blood 340 mg/dL (75-99)
[2020-07-17 22:35] LABS: Glucose,Whole Blood 332 mg/dL (75-99)
[2020-07-17] MEDS: ACETAMINOPHEN TAB 325 MG TAB PO PRN (22:58)
[2020-07-17] MEDS: INSULIN ASPART (NovoLOG) 100 UNIT/ML VIAL SQ SCH (22:59)
[2020-07-17] MEDS: CLOTRIMAZOLE/BETAMETH 1-0.05% CREAM 45 GM TUBE TOPICAL SCH (23:00)
[2020-07-18] MEDS: SODIUM CHLORIDE 0.9% 1,000 ML IV SCH ×2 (05:25→21:22)
[2020-07-18 08:06] LABS: Glucose,Whole Blood 239 mg/dL (75-99)
[2020-07-18] MEDS: DICYCLOMINE 10 MG CAP PO SCH (08:58)
[2020-07-18] MEDS: ASPIRIN 81 MG PO SCH (08:58)
[2020-07-18] MEDS: methylPREDNISolone SOD SUCCI 40 MG/ML 1 ML VIAL IV SCH ×2 (08:58→15:32)
[2020-07-18] MEDS: metFORMIN 500 MG TAB PO SCH (08:58)
[2020-07-18] MEDS: hydroCHLOROthiazide 25 MG TAB PO SCH (08:58)
[2020-07-18] MEDS: CLOPIDOGREL 75 MG TAB PO SCH (08:58)
[2020-07-18] MEDS: lisinopriL 5 MG TAB PO SCH ×2 (08:58→15:33)
[2020-07-18] MEDS: PANTOPRAZOLE 40 MG TABLET PO SCH (08:58)
[2020-07-18] MEDS: MULTIVITAMINS, THERA 1 EACH TAB PO SCH (08:58)
[2020-07-18] MEDS: INSULIN ASPART (NovoLOG) 100 UNIT/ML VIAL SQ SCH ×4 (08:59→21:22)
[2020-07-18] MEDS: MAGNESIUM OXIDE 400 MG TAB PO SCH (08:59)
[2020-07-18] MEDS: GABAPENTIN 100 MG CAP PO SCH ×3 (08:59→21:23)
[2020-07-18] MEDS: amLODIPine 5 MG TAB PO SCH (08:59)
[2020-07-18] MEDS: ACETAMINOPHEN TAB 325 MG TAB PO PRN (08:59)
[2020-07-18] MEDS: CLOTRIMAZOLE/BETAMETH 1-0.05% CREAM 45 GM TUBE TOPICAL SCH ×2 (09:24→21:23)
--- NOTE | 2020-07-18 10:21 | P.CRDCN ---
History of Present Illness History of present illness: HISTORY OF PRESENTING ILLNESS This is a pleasant 69-year-old male past medical history significant for hypertension, dyslipidemia, diabetes mellitus and recent CVA. He has previously followed in the office with Dr. Jaramillo in 2019. We have been asked to see in consultation for CVA. He was sent to the hospital as a direct admit by his PCP secondary to increased weakness, headache and feeling dizzy. June 14, 2020 he suffered a left frontal lobe CVA and was treated with TPA at [facility]. He has residual dysphasia, right sided numbness and right facial droop. He underwent extensive work up there including Loop recorder implantation. In the past he has worn outpatient monitors and underwent a Tilt table test that all came to be unremarkable. He is seen and examined resting comfortably in bed in no acute distress. He continues to feel a headache. He has no chest pain, shortness of breath, dizziness or palpitations. Most recent echocardiogram obtained December 2019 revealed preserved LV systolic function with ejection fraction 50-55%, normal diastolic filling pattern, mild MR and mild TR. DIAGNOSTICS EKG reveals sinus mechanism with left anterior fascicular block. Telemetry tracings indicate persistent sinus mechanism. Chest xray negative for an acute cardiopulmonary process. CT of the brain reveals a new wedge-shaped defects of the high left frontal lobe compatible with interval CVA likely non-acute. Laboratory reviewed, WBC 13, hemoglobin 13.9, platelets 190, sodium 134, potassium 4.6, creatinine 0.9, cardiac enzymes negative 3, d-dimer 0.31. Current cardiac medications include aspirin 81 mg daily, atorvastatin 80 mg daily, Plavix 75 mg daily and amlodipine 5 mg daily. REVIEW OF SYSTEMS At the time of my exam: CONSTITUTIONAL: Denies fever or chills. CARDIOVASCULAR: Denies chest pain, shortness of breath, orthopnea, PND or palpitations. RESPIRATORY: Denies cough. GASTROINTESTINAL: Denies abdominal pain, diarrhea, constipation, nausea or vomiting. MUSCULOSKELETAL: Complains of headache. NEUROLOGIC: Denies numbness, tingling, headacbe or weakness. ENDOCRINE: Denies fatigue, weight change, polydipsia or polyurina. GENITOURINARY: Denies burning, hematuria or urgency with micturation. HEMATOLOGIC: Denies history of anemia or bleeding. PHYSICAL EXAMINATION Blood pressure 182/90 heart rate 74 afebrile and maintaining oxygen saturation on room air. CONSTITUTIONAL: No apparent distress. HEENT: Head is normocephalic. Pupils are equal, round. Sclerae anicteric. Mucous membranes of the mouth are moist. No JVD. No carotid bruit. Right facial droop. CHEST EXAMINATION: Lungs are clear to auscultation. No chest wall tenderness is noted on palpation or with deep breathing. HEART EXAMINATION: Regular rate and rhythm. S1, S2 heard. No murmurs, gallops or rub. ABDOMEN: Soft, nontender. Positive bowel sounds. EXTREMITIES: 2+ peripheral pulses, no lower extremity edema and no calf tenderness. NEUROLOGIC EXAMINATION: Patient is awake, alert and oriented x3. ASSESSMENT Dizziness and headache Hypertension, uncontrolled Recent CVA requiring TPA Dyslipidemia Diabetes mellitus Loop recorder in place PLAN Recommend loop recorder interrogation to assess for underlying atrial fibrillation. For blood pressure management, add lisinopril 5 mg BID and hydrochlorothiazide 25 mg daily. Thank you kindly for this consultation. Nurse Practitioner note has been reviewed, I agree with a documented findings and plan of care. Patient was seen and examined. Past Medical History Past Medical History: Chest Pain / Angina, Diabetes Mellitus, GERD/Reflux, Hyperlipidemia, Hypertension, Sleep Apnea/CPAP/BIPAP, Syncope Additional Past Medical History / Comment(s): IDDM, ERIKA cannot tolerate CPAP, varicose veins, hiatal hernia, constipation occas bleeding with stools, he morrhoids, hyperkalemia History of Any Multi-Drug Resistant Organisms: MRSA Date of last positivie culture/infection: November 2017 MDRO Source:: Abdomen at [facility] per Dr. Verdin Past Surgical History: Back Surgery, Cholecystectomy, Heart Catheterization, Hernia Repair Additional Past Surgical History / Comment(s): arthroscopy right knee. bilateral cataracts, jeancarlos inguinal hernia repair, alban funloplasty(stomach wrapped) Past Anesthesia/Blood Transfusion Reactions: No Reported Reaction Past Psychological History: Anxiety Additional Psychological History / Comment(s): Pt resides with his spouse. He is independent. has a glucometer and bp machine. Smoking Status: Never smoker Past Alcohol Use History: Occasional Additional Past Alcohol Use History / Comment(s): Occasional beer. Past Drug Use History: None Reported - Past Family History Mother Family Medical History: Dementia Additional Family Medical History / Comment(s): HAD PACEMAKER, age 86, Father Family Medical History: Dementia Additional Family Medical History / Comment(s): Alzheimer Medications and Allergies Home Medications Medication Instructions Recorded Confirmed Type Magnesium Oxide [Mag-Ox] 400 mg PO DAILY 09/13/17 07/16/20 History Dicyclomine [Bentyl] 10 mg PO DAILY 01/22/19 07/16/20 History Dulaglutide [Trulicity] 1.5 mg SQ SA 12/27/19 07/16/20 History HYDROcodone/APAP 7.5-325MG [[place] 1 tab PO DAILY PRN 12/27/19 07/16/20 History 7.5-325] metFORMIN HCL 500 mg PO DAILY 12/27/19 07/16/20 History Aspirin EC [Ecotrin Low Dose] 81 mg PO DAILY 07/16/20 07/16/20 History Atorvastatin [Lipitor] 80 mg PO HS 07/16/20 07/16/20 History Clopidogrel Bisulfate [Plavix] 75 mg PO DAILY 07/16/20 07/16/20 History Esomeprazole Magnesium [NexIUM 20 mg PO DAILY 07/16/20 07/16/20 History 24Hr] Gabapentin [Neurontin] 100 mg PO TID 07/16/20 07/16/20 History Multivitamins, Thera [Multivitamin 1 tab PO DAILY 07/16/20 07/16/20 History (formulary)] Nitroglycerin Sl Tabs [Nitrostat] 0.4 mg SL Q5M PRN 07/16/20 07/16/20 History Polymyxin B-Trimeth Sulf Ophth 2 - 3 drops BOTH EYES BID 07/16/20 07/16/20 History [Polytrim Opthalmic] Ranitidine HCl 150 mg PO BID 07/16/20 07/16/20 History amLODIPine [Norvasc] 5 mg PO DAILY 07/16/20 07/16/20 History Allergies Allergy/AdvReac Type Severity Reaction Status Date / Time dipyridamole AdvReac Nausea & Verified 07/16/20 14:36 [From Persantine] Vomiting Iodinated Contrast Media AdvReac Nausea & Verified 07/16/20 14:36 [Iodinated Contrast Media - Vomiting IV Dye] morphine AdvReac Nausea & Verified 07/16/20 14:36 Vomiting Physical Exam Vitals: Vital Signs Temp Pulse Resp BP BP Pulse Ox 07/18/20 07:00 97.9 F 74 18 182/90 184/110 97 07/18/20 02:00 97.6 F 73 16 159/81 97 07/17/20 20:00 97.9 F 78 16 167/89 97 07/17/20 14:59 97.8 F 82 17 169/92 96 Intake and Output 07/17/20 07/18/20 07/18/20 22:59 06:59 14:59 Intake Total 118 Output Total 900 650 Balance -782 -650 Intake: Oral 118 Output: Urine 900 650 Other: Voiding Method Toilet Toilet Urinal Urinal # Voids 3 2 Results 07/17/20 05:02 07/17/20 05:02 Cardiac Enzymes 07/17/20 Range/Units 05:02 AST 18 (14-35) U/L Comprehensive Metabolic Panel 07/17/20 Range/Units 05:02 Sodium 134 L (135-145) mmol/L Potassium 4.6 (3.5-5.5) mmol/L Chloride 99 (96-109) mmol/L Carbon Dioxide 23.7 (21.6-31.8) mmol/L BUN 9.0 (9.0-27.0) mg/dL Creatinine 0.9 (0.6-1.5) mg/dL Glucose 271 H (70-110) mg/dL Calcium 9.0 (8.7-10.3) mg/dL AST 18 (14-35) U/L ALT 30 (10-49) U/L Alkaline Phosphatase 86 (41-126) U/L Total Protein 5.8 L (6.2-8.2) g/dL Albumin 4.20 (3.80-4.90) g/dL Current Medications Generic Name Dose Route Start Last Admin Trade Name Freq PRN Reason Stop Dose Admin Acetaminophen 650 mg 07/17/20 22:13 07/18/20 08:59 Acetaminophen Tab 325 Mg Tab PO 650 mg Q6HR PRN Administration Fever and/ or Pain Hydrocodone Bitart/Acetaminophen 1 each 07/16/20 14:37 07/17/20 15:26 Hydrocodone/Apap 7.5-325mg 1 Each Tab PO 1 each DAILY PRN Administration Pain Amlodipine Besylate 5 mg 07/17/20 09:00 07/18/20 08:59 Amlodipine 5 Mg Tab PO 5 mg DAILY TACOS Administration Aspirin 81 mg 07/17/20 09:00 07/18/20 08:58 Aspirin 81 Mg PO 81 mg DAILY TACOS Administration Atorvastatin Calcium 80 mg 07/16/20 21:00 07/17/20 20:40 Atorvastatin 80 Mg Tab PO 80 mg HS TACOS Administration Betamethasone/Clotrimazole 1 applic 07/17/20 21:00 07/17/20 23:00 Clotrimazole/Betameth 1-0.05% Cream 45 Gm Tube TOPICAL 1 applic BID TACOS Administration Clopidogrel Bisulfate 75 mg 07/17/20 09:00 07/18/20 08:58 Clopidogrel 75 Mg Tab PO 75 mg DAILY TACOS Administration Dicyclomine HCl 10 mg 07/17/20 09:00 07/18/20 08:58 Dicyclomine 10 Mg Cap PO 10 mg DAILY TACOS Administration Gabapentin 100 mg 07/16/20 16:00 07/18/20 08:59 Gabapentin 100 Mg Cap PO 100 mg TID TACOS Administration Hydrochlorothiazide 25 mg 07/18/20 09:00 07/18/20 08:58 Hydrochlorothiazide 25 Mg Tab PO 25 mg DAILY TACOS Administration Sodium Chloride 1,000 mls @ 75 mls/hr 07/16/20 14:45 07/18/20 05:25 Saline 0.9% IV Not Given .[id number] [facility] Insulin Aspart 0 unit 07/17/20 22:39 07/18/20 08:59 Insulin Aspart (Novolog) 100 Unit/Ml Vial SQ 8 unit ACHS TACOS Administration Protocol Lisinopril 5 mg 07/18/20 09:00 07/18/20 08:58 Lisinopril 5 Mg Tab PO 5 mg BID TACOS Administration Magnesium Oxide 400 mg 07/17/20 09:00 07/18/20 08:59 Magnesium Oxide 400 Mg Tab PO 400 mg DAILY TACOS Administration Metformin HCl 500 mg 07/17/20 09:00 07/18/20 08:58 Metformin 500 Mg Tab PO 500 mg DAILY TACOS Administration Methylprednisolone Sodium Succinate 20 mg 07/16/20 17:00 07/18/20 08:58 Methylprednisolone Sod Succi 40 Mg/Ml 1 Ml Vial IV 20 mg Q8HR TACOS Administration Multivitamins 1 each 07/17/20 09:00 07/18/20 08:58 Multivitamins, Thera 1 Each Tab PO 1 each DAILY TACOS Administration Pantoprazole Sodium 40 mg 07/17/20 07:30 07/18/20 08:58 Pantoprazole 40 Mg Tablet PO 40 mg [id number] TACOS Administration Intake and Output 07/17/20 07/18/20 07/18/20 22:59 06:59 14:59 Intake Total 118 Output Total 900 650 Balance -782 650 Intake: Oral 118 Output: Urine 900 650 Other: Voiding Method Toilet Toilet Urinal Urinal # Voids 3 2 07/17/20 05:02 07/17/20 05:02
--- NOTE | 2020-07-18 11:14 | P.PN ---
Subjective Progress Note Date: 07/18/20 Principal diagnosis: Syncope Shortness of breath however no evidence of pneumonia is seen stable now Right-sided hemiparesis with aphasia Hypertension hypertensive cardiovascular disease Type 2 diabetes mellitus 07/18/2020, patient seen evaluated and examined denies any chest pain or shortness of breath at room air breathing comfortably, patient has been evaluated by neurology as well as cardiovascular services, CT of the brain revealed new wet shape infarct left frontal lobe sub acute from June Patient is admitted directly from primary care's office for evaluation of syncope with neurology on consultation This is a 69-year-old male patient originally presented in emergency department on June 14 for evaluation of acute CVA he has significant problem of hyper tension hypertensive cardiovascular disease and dyslipidemia patient was found to have a face E a right facial drooping and right leg weakness, of acute onset, CT of the head is negative for any acute stroke, patient was given TPA and was shipped to [facility]. Patient has prior significant history of the mood disorder depression, type 2 diabetes mellitus hypertension hypertensive cardiovascular disease. BPH, x-ray details are not available, patient admitted directly from doctor's office chest x-ray performed revealed no significant pathology, patient is complaining of mild shortness of breath continued to have a face E a and right-sided weakness Objective - Vital Signs Vital signs: Vital Signs Temp 97.9 F 07/18/20 07:00 Pulse 74 07/18/20 07:00 Resp 18 07/18/20 07:00 BP 182/90 07/18/20 07:00 Pulse Ox 97 07/18/20 07:00 Intake & Output 07/17/20 07/18/20 07/18/20 18:59 06:59 18:59 Intake Total 1016 Output Total 225 1550 Balance 791 -1550 Weight 82.1 kg Intake: Oral 1016 Output: Urine 225 1550 Other: Voiding Method Toilet Urinal # Voids 4 2 - Exam - Constitutional General appearance: average body habitus, cooperative, disheveled - EENT Eyes: EOMI, PERRLA Ears: bilateral: normal - Neck Carotids: bilateral: upstroke normal Thyroid: bilateral: normal size - Respiratory Respiratory: bilateral: diminished - Cardiovascular Rhythm: regular Heart sounds: normal: S1, S2 - Gastrointestinal General gastrointestinal: normal bowel sounds - Musculoskeletal Musculoskeletal: generalized weakness, right sided weakness - Labs CBC & Chem 7: 07/17/20 05:02 07/17/20 05:02 Labs: Abnormal Lab Results - Last 24 Hours (Table) 07/17/20 07/17/20 07/17/20 Range/Units 11:27 17:19 20:46 POC Glucose (mg/dL) 331 H 289 H 340 H (75-99) mg/dL 07/17/20 07/18/20 Range/Units 22:33 08:04 POC Glucose (mg/dL) 332 H 239 H (75-99) mg/dL Assessment and Plan Assessment: Syncope Shortness of breath however no evidence of pneumonia is seen stable now Right-sided hemiparesis with aphasia uncontrolled hypertension Sleep disorder breathing and sleep apnea Bifrontal headaches left frontal lobe subacute infarct Hypertension hypertensive cardiovascular disease Type 2 diabetes mellitus Plan: Neurological evaluation and therapy in progress Continue physical therapy deep breathing exercise incentive spirometry Continue home medications Follow clinical course closely Further recommendations pending plan of care as per clinical response of patient patient will need sleep study as outpatient Time with Patient: Greater than 30
[2020-07-18 12:51] LABS: Glucose,Whole Blood 210 mg/dL (75-99)
--- NOTE | 2020-07-18 13:37 | PN ---
PROGRESS NOTE DATE OF SERVICE: 07/18/2020 A 69-year-old white male, he appears to be eating and drinking fairly well. He has got worsening aphasia and facial flaccidity on the right side. His CAT scan shows positive frontal stroke going to get Cardiology and Neurology involved to see what they want to do as far as determining where the stroke is coming from. CARDIOVASCULAR: S1, S2. LUNGS: Clear. GI: Soft. Diabetes is under decent control. A1c is good. ASSESSMENT: 1. Diabetes mellitus. 2. Cerebrovascular accident, acute frontal on top of chronic cerebrovascular accident. 3. Aphasia. 4. Dysphagia. Please see further orders. Await for Neurology and Cardiology recommendations prior to discharge home. Recommend [facility] on discharge. MMODL / IJN: [id number] /
[2020-07-18] MEDS: BUTALB/APAP/CAFF 50-325-40MG TAB PO PRN (13:48)
--- NOTE | 2020-07-18 14:47 | P.PN ---
Progress Note - Text Loop recorder interrogation revealed no evidence of arrhythmia.
--- NOTE | 2020-07-18 15:47 | FL ---
EXAMINATION TYPE: FL barium swallow w video DATE OF EXAM: 07/18/2020 COMPARISON: NONE HISTORY: Recent stroke, dysphasia TECHNIQUE: Fluoroscopy. FINDINGS: Fluoroscopic guidance was provided for the procedure performed in conjunction with the [facility] pathology department. Please see complete report forthcoming from the Speech Pathology departmen t. Various consistencies from thin liquid to solids were administered. Fluoroscopy time 1 minute 25 seconds. Number of images: 0. No aspiration was evident. There may been some transient penetration was a large bolus of thin liquid s. Minimal pooling is within the vallecula. This resolves with chin tuck method Mild hesitancy of bolus formation IMPRESSION: 1. No aspiration. 2. Mild transient penetration with a large thin bolus, resolved with chin tuck
--- NOTE | 2020-07-18 16:26 | P.PN ---
Subjective Progress Note Date: 07/18/20 Patient was seen for a follow-up. Patient states he continues to have headache which he rates 8/10. It involves the eyes and frontal region. Denies any new focal symptoms. Telemetry monitoring showing sinus rhythm no atrial fibrillation. Objective - Vital Signs Vital signs: Vital Signs Temp 97.8 F 07/18/20 14:00 Pulse 70 07/18/20 14:00 Resp 18 07/18/20 14:00 BP 167/100 07/18/20 14:00 Pulse Ox 96 07/18/20 14:00 Intake & Output 07/17/20 07/18/20 07/18/20 18:59 06:59 18:59 Intake Total 1016 1525 Output Total 225 1550 1150 Balance 791 -1550 375 Weight 82.1 kg Intake: Intake, IV Titration 525 Amount Sodium Chloride 0.9% 1, 525 000 ml @ 75 mls/hr IV . [id number] TACOS Rx#:[id number] Oral 1016 1000 Output: Urine 225 1550 1150 Other: Voiding Method Toilet Toilet Urinal Urinal # Voids 4 2 - Exam Patient's mental status is intact. Speech is moderate to severely dysarthric, but still able to be understand most of the time. No aphasia. Cranial nerves significant for right facial weakness, central type. Tongue protrudes to the right. Other cranial nerves normal. Muscle strength is normal. Sensory is decreased in the right hand as compared to the left. No ataxia for [id number] se testing. Gait is normal. - Labs CBC & Chem 7: 07/17/20 05:02 07/17/20 05:02 Labs: Abnormal Lab Results - Last 24 Hours (Table) 07/17/20 07/17/20 07/17/20 Range/Units 17:19 20:46 22:33 POC Glucose (mg/dL) 289 H 340 H 332 H (75-99) mg/dL 07/18/20 07/18/20 Range/Units 08:04 12:49 POC Glucose (mg/dL) 239 H 210 H (75-99) mg/dL Assessment and Plan Assessment: * Recent history of acute ischemic stroke on 06/14/2020, with residual moderate dysarthria, and right facial weakness, came with new onset headaches involving bifrontal region, high blood pressure. Patient continues to have high blood pressure, likely the cause of headache. * Hypertension * Diabetes Plan: * CT head revealed no acute intracranial process. There is a new that shaped deficit high left frontal lobe compatible with intervals CVA likely nonacute. No additional areas of abnormal cortical attenuation seen. * Continue dual antiplatelet medications, and high dose Lipitor 80 mg daily. * Fioricet as needed for headache. * Diabetes is controlled, with A1c 6.6. * Lipids also controlled. * Optimize control of blood pressure, as per IM. * Received records from [facility]. Apparently patient was admitted on 06/14/2020, discharged on 06/20/2020. Patient transferred post-TPA from [facility] to [place]. He was admitted to ICU. No surgical intervention was needed. Patient was discharged on aspirin, Plavix, Lipitor 40 mg and sliding scale coverage. MRI of the brain demonstrated acute to subacute ischemic infarction in the posterior left frontal lobe with regional sulcal effacement. Transthoracic echo was normal. Carotid Doppler showed less than 50% stenosis of the ICA bilaterally. Transesophageal echocardiogram revealed left-ventricular ejection fraction estimated at 50-55%. No thrombus detected in the left atrial appendage. Agitated saline study negative for interatrial shunt/patent foraminal ovale. Mild MR, mild TR, mild plaque seen in the descending aorta. Addendum 6:45 PM: Patient's wanted to speak to me. Patient's reported that patient has been complaining of some numbness of the left hand and in the perioral region since last 2 days. I again performed a very detailed examination, and is essentially unchanged. Patient at this time complaining of headache 5-6/10. We will check ESR and CRP. The loop recorder interrogation showed no arrhythmias. Patient to aggressively control his vascular risk factors. Continue dual antiplatelet medications. Dr. Cano covering neurology service over the weekend. Time with Patient: Greater than 30 (Examination 2 different occasions, counseling and coordinating care.)
[2020-07-18 18:17] LABS: Glucose,Whole Blood 313 mg/dL (75-99)
[2020-07-18 21:08] LABS: Glucose,Whole Blood 286 mg/dL (75-99)
[2020-07-18] MEDS: ATORVASTATIN 80 MG TAB PO SCH (21:22)
[2020-07-18] MEDS ORDERED: INSULIN ASPART (NovoLOG) 100 UNIT/ML VIAL SQ SCH (22:11)
[2020-07-19] MEDS: methylPREDNISolone SOD SUCCI 40 MG/ML 1 ML VIAL IV SCH ×3 (00:39→16:36)
[2020-07-19] MEDS: BUTALB/APAP/CAFF 50-325-40MG TAB PO PRN (05:23)
[2020-07-19 07:28] LABS: Glucose,Whole Blood 220 mg/dL (75-99)
[2020-07-19] MEDS: hydroCHLOROthiazide 25 MG TAB PO SCH (08:28)
[2020-07-19] MEDS: ASPIRIN 81 MG PO SCH (08:28)
[2020-07-19] MEDS: metFORMIN 500 MG TAB PO SCH (08:29)
[2020-07-19] MEDS: lisinopriL 10 MG TAB PO SCH ×2 (08:29→21:41)
[2020-07-19] MEDS: MULTIVITAMINS, THERA 1 EACH TAB PO SCH (08:29)
[2020-07-19] MEDS: CLOPIDOGREL 75 MG TAB PO SCH (08:29)
[2020-07-19] MEDS: DICYCLOMINE 10 MG CAP PO SCH (08:29)
[2020-07-19] MEDS: amLODIPine 10 MG TAB PO SCH (08:29)
[2020-07-19] MEDS: MAGNESIUM OXIDE 400 MG TAB PO SCH (08:29)
[2020-07-19] MEDS: PANTOPRAZOLE 40 MG TABLET PO SCH (08:29)
[2020-07-19] MEDS: GABAPENTIN 100 MG CAP PO SCH ×3 (08:29→21:41)
[2020-07-19] MEDS: INSULIN ASPART (NovoLOG) 100 UNIT/ML VIAL SQ SCH ×5 (08:30→21:42)
--- NOTE | 2020-07-19 08:53 | P.PN ---
Subjective Progress Note Date: 07/19/20 HISTORY OF PRESENTING ILLNESS This is a pleasant 69-year-old male past medical history significant for hypertension, dyslipidemia, diabetes mellitus and recent CVA. He has previously followed in the office with Dr. Jaramillo in 2019. We have been asked to see in consultation for CVA. He was sent to the hospital as a direct admit by his PCP secondary to increased weakness, headache and feeling dizzy. June 14, 2020 he suffered a left frontal lobe CVA and was treated with TPA at [facility]. He has residual dysphasia, right sided numbness and right facial droop. He underwent extensive work up there including Loop recorder implantation. In the past he has worn outpatient monitors and underwent a Tilt table test that all came to be unremarkable. He is seen and examined resting c omfortably in bed in no acute distress. He continues to feel a headache. He has no chest pain, shortness of breath, dizziness or palpitations. Most recent echocardiogram obtained December 2019 revealed preserved LV systolic function with ejection fraction 50-55%, normal diastolic filling pattern, mild MR and mild TR. DIAGNOSTICS EKG reveals sinus mechanism with left anterior fascicular block. Telemetry tracings indicate persistent sinus mechanism. Chest xray negative for an acute cardiopulmonary process. CT of the brain reveals a new wedge-shaped defects of the high left frontal lobe compatible with interval CVA likely non-acute. Laboratory reviewed, WBC 13, hemoglobin 13.9, platelets 190, sodium 134, potassium 4.6, creatinine 0.9, cardiac enzymes negative 3, d-dimer 0.31. Current cardiac medications include aspirin 81 mg daily, atorvastatin 80 mg daily, Plavix 75 mg daily and amlodipine 5 mg daily. 07/19: Patient continued to have high blood pressure readings through the night running 186/107 and 200/112. Amlodipine increased from 5 to 10 mg daily and lisinopril will be increased from 5 mg twice daily to 10 mg twice daily and continue hydrochlorothiazide 25 mg daily. Patient denies any chest pain or shortness of breath. No lightheadedness or dizziness. Patient is found eating his breakfast for which he is on a chopped dysphagia diet with no episodes of choking while observed. PHYSICAL EXAMINATION VS: Patient is been afebrile, heart rate is 75-96, pulse ox 99% on room air. CONSTITUTIONAL: No apparent distress. HEENT: Head is normocephalic. Pupils are equal, round. Sclerae anicteric. Mucous membranes of the mouth are moist. No JVD. No carotid bruit. Right facial droop. CHEST EXAMINATION: Lungs are clear to auscultation. No chest wall tenderness is noted on palpation or with deep breathing. HEART EXAMINATION: Regular rate and rhythm. S1, S2 heard. No murmurs, gallops or rub. ABDOMEN: Soft, nontender. Positive bowel sounds. EXTREMITIES: 2+ peripheral pulses, no lower extremity edema and no calf tenderness. NEUROLOGIC EXAMINATION: Patient is awake, alert and oriented x3. ASSESSMENT Dizziness and headache Hypertension, uncontrolled Recent CVA requiring TPA Dyslipidemia Diabetes mellitus Loop recorder in place PLAN Loop recorder interrogation showed no signs of arrhythmia For blood pressure control, increase amlodipine to 10 mg daily and increase lisinopril to 10 mg twice daily Continue hydrochlorothiazide 25 mg daily Thank you kindly for this consultation. Nurse Practitioner note has been reviewed, I agree with a documented findings and plan of care. Patient was seen and examined. Objective - Vital Signs Vital signs: Vital Signs Temp 97.9 F 07/19/20 07:00 Pulse 75 07/19/20 07:00 Resp 18 07/19/20 07:00 BP 186/107 07/19/20 07:00 Pulse Ox 99 07/19/20 07:00 Intake & Output 07/18/20 07/19/20 07/19/20 18:59 06:59 18:59 Intake Total 1525 Output Total 1150 Balance 375 Intake: Intake, IV Titration 525 Amount Sodium Chloride 0.9% 1, 525 000 ml @ 75 mls/hr IV . [id number] [facility] Rx#:[id number] Oral 1000 Output: Urine 1150 Other: Voiding Method Toilet Toilet Urinal Urinal # Voids 2 - Labs CBC & Chem 7: 07/17/20 05:02 07/17/20 05:02 Labs: Abnormal Lab Results - Last 24 Hours (Table) 07/18/20 07/18/20 07/18/20 Range/Units 08:04 12:49 18:15 POC Glucose (mg/dL) 239 H 210 H 313 H (75-99) mg/dL 07/18/20 07/19/20 Range/Units 21:06 07:26 POC Glucose (mg/dL) 286 H 220 H (75-99) mg/dL
[2020-07-19] MEDS: CLOTRIMAZOLE/BETAMETH 1-0.05% CREAM 45 GM TUBE TOPICAL SCH ×2 (09:37→21:41)
[2020-07-19 12:20] LABS: Glucose,Whole Blood 355 mg/dL (75-99)
[2020-07-19 17:15] LABS: Glucose,Whole Blood 359 mg/dL (75-99)
[2020-07-19] MEDS: SODIUM CHLORIDE 0.9% 1,000 ML IV SCH ×2 (17:43→23:26)
[2020-07-19 21:17] LABS: Glucose,Whole Blood 270 mg/dL (75-99)
[2020-07-19] MEDS: ATORVASTATIN 80 MG TAB PO SCH (21:41)
[2020-07-20] MEDS: methylPREDNISolone SOD SUCCI 40 MG/ML 1 ML VIAL IV SCH ×4 (00:20→23:58)
[2020-07-20 07:39] LABS: Glucose,Whole Blood 226 mg/dL (75-99)
[2020-07-20] MEDS: INSULIN ASPART (NovoLOG) 100 UNIT/ML VIAL SQ SCH ×7 (08:19→21:48)
[2020-07-20] MEDS: lisinopriL 10 MG TAB PO SCH ×2 (08:20→21:48)
[2020-07-20] MEDS: PANTOPRAZOLE 40 MG TABLET PO SCH (08:20)
[2020-07-20] MEDS: MULTIVITAMINS, THERA 1 EACH TAB PO SCH (08:20)
[2020-07-20] MEDS: CLOPIDOGREL 75 MG TAB PO SCH (08:20)
[2020-07-20] MEDS: hydroCHLOROthiazide 25 MG TAB PO SCH (08:20)
[2020-07-20] MEDS: ACETAMINOPHEN TAB 325 MG TAB PO PRN (08:21)
[2020-07-20] MEDS: ASPIRIN 81 MG PO SCH (08:21)
[2020-07-20] MEDS: GABAPENTIN 100 MG CAP PO SCH ×3 (08:21→21:49)
[2020-07-20] MEDS: amLODIPine 10 MG TAB PO SCH (08:21)
[2020-07-20] MEDS: DICYCLOMINE 10 MG CAP PO SCH (08:21)
[2020-07-20] MEDS: metFORMIN 500 MG TAB PO SCH (08:21)
[2020-07-20] MEDS: MAGNESIUM OXIDE 400 MG TAB PO SCH (08:21)
[2020-07-20] MEDS: CLOTRIMAZOLE/BETAMETH 1-0.05% CREAM 45 GM TUBE TOPICAL SCH ×2 (08:40→21:48)
--- NOTE | 2020-07-20 10:20 | P.PN ---
Subjective Progress Note Date: 07/20/20 Principal diagnosis: Syncope Shortness of breath however no evidence of pneumonia is seen stable now Right-sided hemiparesis with aphasia Hypertension hypertensive cardiovascular disease Type 2 diabetes mellitus 07/20/2020, patient seen eval examined during the rounds, remains afebrile hemodynamically stable blood pressure slightly on the outside, oxygen saturation 99%, cardiology and neuro have been evaluating the patient, loop recorder in place for syncope 07/18/2020, patient seen evaluated and examined denies any chest pain or shortness of breath at room air breathing comfortably, patient has been evaluated by neurology as well as cardiovascular services, CT of the brain revealed new wet shape infarct left frontal lobe sub acute from June Patient is admitted directly from primary care's office for evaluation of syncope with neurology on consultation This is a 69-year-old male patient originally presented in emergency department on June 14 for evaluation of acute CVA he has significant problem of hypertension hypertensive cardiovascular disease and dyslipidemia patient was found to have a face E a right facial drooping and right leg weakness, of acute onset, CT of the head is negative for any acute stroke, patient was given TPA and was shipped to [facility]. Patient has prior significant history of the mood disorder depression, type 2 diabetes mellitus hypertension hypertensive cardiovascular disease. BPH, x-ray details are not available, patient admitted directly from doctor's office chest x-ray performed revealed no significant pathology, patient is complaining of mild shortness of breath continued to have a face E a and right-sided weakness Objective - Vital Signs Vital signs: Vital Signs Temp 97.9 F 07/20/20 07:00 Pulse 59 L 07/20/20 08:00 Resp 18 07/20/20 08:00 BP 177/100 07/20/20 07:00 Pulse Ox 99 07/20/20 07:00 Intake & Output 07/19/20 07/20/20 07/20/20 18:59 06:59 18:59 Intake Total 1530 Balance 1530 Intake: Oral 1530 Other: Voiding Method Toilet Toilet Toilet Urinal Urinal Urinal # Voids 2 3 - Exam - Constitutional General appearance: average body habitus, cooperative, disheveled - EENT Eyes: EOMI, PERRLA Ears: bilateral: normal - Neck Carotids: bilateral: upstroke normal Thyroid: bilateral: normal size - Respiratory Respiratory: bilateral: diminished - Cardiovascular Rhythm: regular Heart sounds: normal: S1, S2 - Gastrointestinal General gastrointestinal: normal bowel sounds - Musculoskeletal Musculoskeletal: generalized weakness, right sided weakness - Labs CBC & Chem 7: 07/17/20 05:02 07/17/20 05:02 Labs: Abnormal Lab Results - Last 24 Hours (Table) 07/19/20 07/19/20 07/19/20 Range/Units 12:13 17:13 21:16 POC Glucose (mg/dL) 355 H 359 H 270 H (75-99) mg/dL 07/20/20 Range/Units 07:38 POC Glucose (mg/dL) 226 H (75-99) mg/dL Assessment and Plan Assessment: Syncope Shortness of breath however no evidence of pneumonia is seen stable now Right-sided hemiparesis with aphasia uncontrolled hypertension Chronic paroxysmal intermittent atrial fibrillation Sleep disorder breathing and sleep apnea Bifrontal headaches left frontal lobe subacute infarct Hypertension hypertensive cardiovascular disease Type 2 diabetes mellitus Plan: Neurological and cardiovascular evaluation and therapy in progress Continue physical therapy deep breathing exercise incentive spirometry Continue home medications Follow clinical course closely Further recommendations pending plan of care as per clinical response of patient patient will need sleep study as outpatient Time with Patient: Greater than 30
--- NOTE | 2020-07-20 11:03 | P.PN ---
Subjective Progress Note Date: 07/20/20 HISTORY OF PRESENTING ILLNESS This is a pleasant 69-year-old male past medical history significant for hypertension, dyslipidemia, diabetes mellitus and recent CVA. He has previously followed in the office with Dr. Jaramillo in 2019. We have been asked to see in consultation for CVA. He was sent to the hospital as a direct admit by his PCP secondary to increased weakness, headache and feeling dizzy. June 14, 2020 he suffered a left frontal lobe CVA and was treated with TPA at [facility]. He has residual dysphasia, right sided numbness and right facial droop. He underwent extensive work up there including Loop recorder implantation. In the past he has worn outpatient monitors and underwent a Tilt table test that all came to be unremarkable. He is seen and examined resting c omfortably in bed in no acute distress. He continues to feel a headache. He has no chest pain, shortness of breath, dizziness or palpitations. Most recent echocardiogram obtained December 2019 revealed preserved LV systolic function with ejection fraction 50-55%, normal diastolic filling pattern, mild MR and mild TR. DIAGNOSTICS EKG reveals sinus mechanism with left anterior fascicular block. Telemetry tracings indicate persistent sinus mechanism. Chest xray negative for an acute cardiopulmonary process. CT of the brain reveals a new wedge-shaped defects of the high left frontal lobe compatible with interval CVA likely non-acute. Laboratory reviewed, WBC 13, hemoglobin 13.9, platelets 190, sodium 134, potassium 4.6, creatinine 0.9, cardiac enzymes negative 3, d-dimer 0.31. Current cardiac medications include aspirin 81 mg daily, atorvastatin 80 mg daily, Plavix 75 mg daily and amlodipine 5 mg daily. 07/19: Patient continued to have high blood pressure readings through the night running 186/107 and 200/112. Amlodipine increased from 5 to 10 mg daily and lisinopril will be increased from 5 mg twice daily to 10 mg twice daily and continue hydrochlorothiazide 25 mg daily. Patient denies any chest pain or shortness of breath. No lightheadedness or dizziness. Patient is found eating his breakfast for which he is on a chopped dysphagia diet with no episodes of choking while observed. 07/20: Several adjustments made to patient's blood pressure medications yesterday. He did run 140s over 80s to 160 over 80s through the night. This morning blood pressure is 177/100. Patient is complaining of headache. He denies chest pain or shortness of breath. He does state that he has some shortness of breath with activities. desk monitor is sinus rhythm. PHYSICAL EXAMINATION VS: Patient is been afebrile, heart rate is 70s, pulse ox 99% on room air. CONSTITUTIONAL: No apparent distress. HEENT: Head is normocephalic. Pupils are equal, round. Sclerae anicteric. Mucous membranes of the mouth are moist. No JVD. No carotid bruit. Right facial droop. CHEST EXAMINATION: Lungs are clear to auscultation. No chest wall tenderness is noted on palpation or with deep breathing. HEART EXAMINATION: Regular rate and rhythm. S1, S2 heard. No murmurs, gallops or rub. ABDOMEN: Soft, nontender. Positive bowel sounds. EXTREMITIES: 2+ peripheral pulses, no lower extremity edema and no calf tenderness. NEUROLOGIC EXAMINATION: Patient is awake, alert and oriented x3. ASSESSMENT Dizziness and headache Hypertension, uncontrolled Recent CVA requiring TPA Dyslipidemia Diabetes mellitus Loop recorder in place PLAN Loop recorder interrogation showed no signs of arrhythmia Continue amlodipine to 10 mg daily and lisinopril to 10 mg twice daily Continue hydrochlorothiazide 25 mg daily Add hydralazine 25 mg 3 times daily Thank you kindly for this consultation. Nurse Practitioner note has been reviewed, I agree with a documented findings and plan of care. Patient was seen and examined. Objective - Vital Signs Vital signs: Vital Signs Temp 97.9 F 07/20/20 07:00 Pulse 59 L 07/20/20 07:00 Resp 18 07/20/20 07:00 BP 177/100 07/20/20 07:00 Pulse Ox 99 07/20/20 07:00 Intake & Output 07/19/20 07/20/20 07/20/20 18:59 06:59 18:59 Intake Total 1530 Balance 1530 Intake: Oral 1530 Other: Voiding Method Toilet Toilet Urinal Urinal # Voids 2 3 - Labs CBC & Chem 7: 07/17/20 05:02 07/17/20 05:02 Labs: Abnormal Lab Results - Last 24 Hours (Table) 07/19/20 07/19/20 07/19/20 Range/Units 12:13 17:13 21:16 POC Glucose (mg/dL) 355 H 359 H 270 H (75-99) mg/dL 07/20/20 Range/Units 07:38 POC Glucose (mg/dL) 226 H (75-99) mg/dL
[2020-07-20 12:36] LABS: Glucose,Whole Blood 260 mg/dL (75-99)
[2020-07-20] MEDS: hydrALAZINE HCL 25 MG TAB PO SCH ×3 (12:36→21:49)
[2020-07-20] MEDS: SODIUM CHLORIDE 0.9% 1,000 ML IV SCH (15:11)
[2020-07-20 17:13] LABS: Glucose,Whole Blood 161 mg/dL (75-99)
--- NOTE | 2020-07-20 17:38 | PN ---
PROGRESS NOTE DATE OF SERVICE: 07/19/2020 I am covering for Dr. Gaona. This 69-year-old gentleman with diabetes mellitus was admitted with possible acute TIA with moderate dysarthria, is being closely monitored. No chest pain. No palpitations. No fever. EXAM: Mildly dysarthric. Pulse 93, blood pressure 160/80, respiration 18, temperature 97.2, pulse ox 99% on room air. HEENT: Conjunctivae normal. Oral mucosa moist. NECK: No jugular venous distention. No lymph node enlargement. CARDIOVASCULAR: S1, S2, muffled. No S3, no S4, RESPIRATORY: Diminished breath sounds at the bases. A few rhonchi, no crackles. ABDOMEN: Soft, nontender. LEGS: No edema, no swelling. NERVOUS SYSTEM: Diffusely weak. LABS: WBC 13.05, sodium 134. ASSESSMENT: 1. Acute transient ischemic attach with acute on chronic cerebrovascular accident. 2. Diabetes mellitus type 2. 3. Aphasia. 4. Dysphagia. RECOMMENDATIONS AND DISCUSSION: Recommend to continue current management and symptomatic treatment. Closely follow with Neurology. Monitor blood pressure closely. Guarded prognosis. Further recommendations to follow. MMODL / IJN: [id number] /
--- NOTE | 2020-07-20 17:44 | PN ---
PROGRESS NOTE DATE OF SERVICE: 07/20/2020 I am covering for Dr. Gaona. This 69-year-old gentleman admitted with acute TIA and acute on chronic CVA. Patient also had diabetes mellitus. Patient being closely monitored. No chest pain. No palpitations. No fever. PHYSICAL EXAMINATION: Alert and oriented x3. The pulse is 71, blood pressure 140/87, respiration 18, temperature 98.1, pulse ox 99% on room air. HEENT: Conjunctivae normal. Oral mucosa moist. NECK: No jugular venous distention. No lymph node enlargement. CARDIOVASCULAR: S1, S2, muffled. No S3, no S4, RESPIRATORY: Diminished breath sounds at the bases. ABDOMEN: Soft, nontender. LEGS: No edema, no swelling. NERVOUS SYSTEM: Mild diffuse weakness. LABS: WBC 13.5, glucose noted. ASSESSMENT: 1. Acute transient ischemic attack and cerebrovascular accident with acute on chronic cerebrovascular accident. 2. Diabetes mellitus type 2. 3. Aphasia. 4. Dysphagia. 5. Hyponatremia. RECOMMENDATIONS AND DISCUSSION: In this 69-year-old gentleman who presented with multiple complex medical issues, we will continue the current medications. Stop the antiplatelet agents. Monitor blood sugars closely and PT/OT evaluation and Dr. Gaona will follow. MMODL / IJN: [id number] /
--- NOTE | 2020-07-20 18:00 | P.PN ---
Subjective Progress Note Date: 07/20/20 The patient is a very pleasant 69-year-old male who is seen in neurologic follow-up on July 20, 2020, via teleneurology. The patient is seated in the bedside chair. He reports continuing to have a headache, rated at a 7-8/10. He has received Tylenol which has provided some benefit. He states that his headache was very severe, prior to admission. The patient's is present at the time of the evaluation. She helps provide a history. Objective - Vital Signs Vital signs: Vital Signs Temp 98.1 F 07/20/20 14:22 Pulse 71 07/20/20 14:22 Resp 18 07/20/20 14:22 BP 148/73 07/20/20 14:22 Pulse Ox 99 07/20/20 14:22 Intake & Output 07/19/20 07/20/20 07/20/20 18:59 06:59 18:59 Intake Total 1530 1200 Balance 1530 1200 Intake: Oral 1530 1200 Other: Voiding Method Toilet Toilet Toilet Urinal Urinal Urinal # Voids 2 3 2 - Exam Gen.: The patient is seated in the bedside chair. He is in no obvious distress. Neurological examination Mental status: Patient is awake and alert. He is able to answer questions appropriately. His speech is quite severely dysarthric however understandable most of the time. Cranial nerves: There is a right upper motor neuron facial droop. - Labs CBC & Chem 7: 07/17/20 05:02 07/17/20 05:02 Labs: Abnormal Lab Results - Last 24 Hours (Table) 07/19/20 07/20/20 07/20/20 Range/Units 21:16 07:38 12:35 POC Glucose (mg/dL) 270 H 226 H 260 H (75-99) mg/dL 07/20/20 Range/Units 17:12 POC Glucose (mg/dL) 161 H (75-99) mg/dL Assessment and Plan Assessment: 1. Continued headache with continued markedly elevated blood pressure. At 7 AM this morning the patient's blood pressure was 177/100. 2. Recent ischemic, cerebral infarct Plan: 1. Will increase Gabapentin to 200 mg 3 times daily, in attempts to lessen the patient's headache 2. Likely the most effective treatment of the patient's headache will be blood pressure control Time with Patient: Less than 30 (spent 20 minutes with patient via teleneurology)
[2020-07-20 21:05] LABS: Glucose,Whole Blood 191 mg/dL (75-99)
[2020-07-20] MEDS: ATORVASTATIN 80 MG TAB PO SCH (21:48)
[2020-07-21] MEDS: SODIUM CHLORIDE 0.9% 1,000 ML IV SCH ×2 (04:09→18:51)
[2020-07-21 07:28] LABS: Glucose,Whole Blood 260 mg/dL (75-99)
[2020-07-21] MEDS: INSULIN ASPART (NovoLOG) 100 UNIT/ML VIAL SQ SCH ×7 (08:50→21:34)
[2020-07-21] MEDS: methylPREDNISolone SOD SUCCI 40 MG/ML 1 ML VIAL IV SCH ×2 (08:50→15:40)
[2020-07-21] MEDS: metFORMIN 500 MG TAB PO SCH (08:51)
[2020-07-21] MEDS: MULTIVITAMINS, THERA 1 EACH TAB PO SCH (08:51)
[2020-07-21] MEDS: lisinopriL 10 MG TAB PO SCH ×2 (08:51→21:11)
[2020-07-21] MEDS: GABAPENTIN 100 MG CAP PO SCH ×3 (08:51→21:11)
[2020-07-21] MEDS: ASPIRIN 81 MG PO SCH (08:51)
[2020-07-21] MEDS: hydrALAZINE HCL 25 MG TAB PO SCH ×3 (08:51→21:11)
[2020-07-21] MEDS: CLOPIDOGREL 75 MG TAB PO SCH (08:51)
[2020-07-21] MEDS: PANTOPRAZOLE 40 MG TABLET PO SCH (08:51)
[2020-07-21] MEDS: amLODIPine 10 MG TAB PO SCH (08:51)
[2020-07-21] MEDS: MAGNESIUM OXIDE 400 MG TAB PO SCH (08:51)
[2020-07-21] MEDS: ACETAMINOPHEN TAB 325 MG TAB PO PRN (08:52)
[2020-07-21] MEDS: hydroCHLOROthiazide 25 MG TAB PO SCH (08:52)
[2020-07-21] MEDS: DICYCLOMINE 10 MG CAP PO SCH (08:52)
[2020-07-21] MEDS: CLOTRIMAZOLE/BETAMETH 1-0.05% CREAM 45 GM TUBE TOPICAL SCH ×2 (10:05→21:12)
--- NOTE | 2020-07-21 11:46 | P.PN ---
Subjective Progress Note Date: 07/21/20 Principal diagnosis: Syncope Shortness of breath however no evidence of pneumonia is seen stable now Right-sided hemiparesis with aphasia Hypertension hypertensive cardiovascular disease Type 2 diabetes mellitus 07/21/2020 patient is awake and alert laying comfortably on bed denies any chest pain blood pressure have been running high today however slightly better under control cardiovascular services following and evaluating and managing medicine, , Neurontin have been escalated in an attempt to a controlled headache in a better fashion hopefully that will improve her blood pressure as well will follow closely 07/20/2020, patient seen eval examined during the rounds, remains afebrile hemodynamically stable blood pressure slightly on the outside, oxygen saturation 99%, cardiology and neuro have been evaluating the patient, loop recorder in place for syncope 07/18/2020, patient seen evaluated and examined denies any chest pain or shortness of breath at room air breathing comfortably, patient has been evaluated by neurology as well as cardiovascular services, CT of the brain revealed new wet shape infarct left frontal lobe sub acute from June Patient is admitted directly from primary care's office for evaluation of syncope with neurology on consultation This is a 69-year-old male patient originally presented in emergency department on June 14 for evaluation of acute CVA he has significant problem of hypertension hypertensive cardiovascular disease and dyslipidemia patient was found to have a face E a right facial drooping and right leg weakness, of acute onset, CT of the head is negative for any acute stroke, patient was given TPA and was shipped to [facility]. Patient has prior significant history of the mood disorder depression, type 2 diabetes mellitus hypertension hypertensive cardiovascular disease. BPH, x-ray details are not available, patient admitted directly from doctor's office chest x-ray performed revealed no significant pathology, patient is complaining of mild shortness of breath continued to have a face E a and right-sided weakness Objective - Vital Signs Vital signs: Vital Signs Temp 97.6 F 07/21/20 07:00 Pulse 65 07/21/20 08:00 Resp 18 07/21/20 08:00 BP 154/93 07/21/20 07:00 Pulse Ox 99 07/21/20 07:00 Intake & Output 07/20/20 07/21/20 07/21/20 18:59 06:59 18:59 Intake Total 1200 Balance 1200 Intake: Oral 1200 Other: Voiding Method Toilet Toilet Toilet Urinal Urinal Urinal # Voids 2 3 - Exam - Constitutional General appearance: average body habitus, cooperative, disheveled - EENT Eyes: EOMI, PERRLA Ears: bilateral: normal - Neck Carotids: bilateral: upstroke normal Thyroid: bilateral: normal size - Respiratory Respiratory: bilateral: diminished - Cardiovascular Rhythm: regular Heart sounds: normal: S1, S2 - Gastrointestinal General gastrointestinal: normal bowel sounds - Musculoskeletal Musculoskeletal: generalized weakness, right sided weakness - Labs CBC & Chem 7: 07/17/20 05:02 07/17/20 05:02 Labs: Abnormal Lab Results - Last 24 Hours (Table) 07/20/20 07/20/20 07/20/20 Range/Units 12:35 17:12 21:01 POC Glucose (mg/dL) 260 H 161 H 191 H (75-99) mg/dL 07/21/20 Range/Units 07:26 POC Glucose (mg/dL) 260 H (75-99) mg/dL Assessment and Plan Assessment: Syncope Intractable headache Bifrontal headaches Shortness of breath however no evidence of pneumonia is seen stable now Right-sided hemiparesis with aphasia uncontrolled hypertension Chronic paroxysmal intermittent atrial fibrillation Sleep disorder breathing and sleep apnea left frontal lobe subacute infarct Hypertension hypertensive cardiovascular disease Type 2 diabetes mellitus Plan: Neurological and cardiovascular evaluation and therapy in progress Neurontin dose has been adjusted Loop recorder in place Patient being continued on amlodipine and lisinopril along with hydrochlorothiazide and hydralazine Continue physical therapy deep breathing exercise incentive spirometry Continue home medications Follow clinical course closely Further recommendations pending plan of care as per clinical response of patient patient will need sleep study as outpatient Time with Patient: Greater than 30
[2020-07-21 11:49] LABS: Glucose,Whole Blood 192 mg/dL (75-99)
[2020-07-21 17:06] LABS: Glucose,Whole Blood 259 mg/dL (75-99)
[2020-07-21 20:53] LABS: Glucose,Whole Blood 373 mg/dL (75-99)
[2020-07-21] MEDS: ATORVASTATIN 80 MG TAB PO SCH (21:11)
[2020-07-22] MEDS: methylPREDNISolone SOD SUCCI 40 MG/ML 1 ML VIAL IV SCH ×3 (00:38→16:01)
[2020-07-22 00:46] LABS: Glucose,Whole Blood 255 mg/dL (75-99)
[2020-07-22] MEDS: SODIUM CHLORIDE 0.9% 1,000 ML IV SCH ×2 (05:19→17:39)
[2020-07-22 07:18] LABS: Glucose,Whole Blood 232 mg/dL (75-99)
[2020-07-22 07:58] VITALS: RESP 16
[2020-07-22] MEDS: INSULIN ASPART (NovoLOG) 100 UNIT/ML VIAL SQ SCH ×7 (08:31→20:38)
[2020-07-22] MEDS: hydrALAZINE HCL 25 MG TAB PO SCH ×3 (09:37→20:37)
[2020-07-22] MEDS: metFORMIN 500 MG TAB PO SCH (09:37)
[2020-07-22] MEDS: ASPIRIN 81 MG PO SCH (09:37)
[2020-07-22] MEDS: MAGNESIUM OXIDE 400 MG TAB PO SCH (09:37)
[2020-07-22] MEDS: hydroCHLOROthiazide 25 MG TAB PO SCH (09:37)
[2020-07-22] MEDS: MULTIVITAMINS, THERA 1 EACH TAB PO SCH (09:37)
[2020-07-22] MEDS: DICYCLOMINE 10 MG CAP PO SCH (09:37)
[2020-07-22] MEDS: GABAPENTIN 100 MG CAP PO SCH ×3 (09:38→20:38)
[2020-07-22] MEDS: PANTOPRAZOLE 40 MG TABLET PO SCH (09:38)
[2020-07-22] MEDS: amLODIPine 10 MG TAB PO SCH (09:38)
[2020-07-22] MEDS: CLOPIDOGREL 75 MG TAB PO SCH (09:38)
[2020-07-22] MEDS: lisinopriL 10 MG TAB PO SCH ×2 (09:38→20:37)
[2020-07-22] MEDS: CLOTRIMAZOLE/BETAMETH 1-0.05% CREAM 45 GM TUBE TOPICAL SCH ×2 (09:39→20:38)
[2020-07-22 11:45] LABS: Glucose,Whole Blood 310 mg/dL (75-99)
--- NOTE | 2020-07-22 14:24 | P.PN ---
Subjective Progress Note Date: 07/22/20 Principal diagnosis: Syncope Shortness of breath however no evidence of pneumonia is seen stable now Right-sided hemiparesis with aphasia Hypertension hypertensive cardiovascular disease Type 2 diabetes mellitus 07/22/2020, patient seen eval examined ambulating in the room and denies any chest pain however is still have intermittent headaches blood pressure running high medicine are being adjusted, likely will be discharge in next 24 hours if remains stable 07/21/2020 patient is awake and alert laying comfortably on bed denies any chest pain blood pressure have been running high today however slightly better under control cardiovascular services following and evaluating and managing medicine, , Neurontin have been escalated in an attempt to a controlled headache in a better fashion hopefully that will improve her blood pressure as well will follow closely 07/20/2020, patient seen everlin examined during the rounds, remains afebrile hemodynamically stable blood pressure slightly on the outside, oxygen saturation 99%, cardiology and neuro have been evaluating the patient, loop recorder in place for syncope 07/18/2020, patient seen evaluated and examined denies any chest pain or shortness of breath at room air breathing comfortably, patient has been evaluated by neurology as well as cardiovascular services, CT of the brain revealed new wet shape infarct left frontal lobe sub acute from June Patient is admitted directly from primary care's office for evaluation of syncope with neurology on consultation This is a 69-year-old male patient originally presented in emergency department on June 14 for evaluation of acute CVA he has significant problem of hypertension hypertensive cardiovascular disease and dyslipidemia patient was found to have a face E a right facial drooping and right leg weakness, of acute onset, CT of the head is negative for any acute stroke, patient was given TPA and was shipped to [facility]. Patient has prior significant history of the mood disorder depression, type 2 diabetes mellitus hypertension hypertensive car diovascular disease. BPH, x-ray details are not available, patient admitted directly from doctor's office chest x-ray performed revealed no significant pathology, patient is complaining of mild shortness of breath continued to have a face E a and right-sided weakness Objective - Vital Signs Vital signs: Vital Signs Temp 98.5 F 07/22/20 07:00 Pulse 75 07/22/20 07:00 Resp 16 07/22/20 07:00 BP 165/94 07/22/20 07:00 Pulse Ox 99 07/22/20 07:00 Intake & Output 07/21/20 07/22/20 07/22/20 18:59 06:59 18:59 Intake Total 660 Balance 660 Weight 82.1 kg Intake: Oral 660 Other: Voiding Method Toilet Toilet Urinal Urinal # Voids 2 1 3 - Exam - Constitutional General appearance: average body habitus, cooperative, disheveled - EENT Eyes: EOMI, PERRLA Ears: bilateral: normal - Neck Carotids: bilateral: upstroke normal Thyroid: bilateral: normal size - Respiratory Respiratory: bilateral: diminished - Cardiovascular Rhythm: regular Heart sounds: normal: S1, S2 - Gastrointestinal General gastrointestinal: normal bowel sounds - Musculoskeletal Musculoskeletal: generalized weakness, right sided weakness - Labs CBC & Chem 7: 07/17/20 05:02 07/17/20 05:02 Labs: Abnormal Lab Results - Last 24 Hours (Table) 07/21/20 07/21/20 07/22/20 Range/Units 17:03 20:52 00:44 POC Glucose (mg/dL) 259 H 373 H 255 H (75-99) mg/dL 07/22/20 07/22/20 Range/Units 07:16 11:43 POC Glucose (mg/dL) 232 H 310 H (75-99) mg/dL Assessment and Plan Assessment: Syncope Intractable headache Bifrontal headaches Shortness of breath however no evidence of pneumonia is seen stable now Right-sided hemiparesis with aphasia/dysphasia uncontrolled hypertension Chronic paroxysmal intermittent atrial fibrillation Sleep disorder breathing and sleep apnea left frontal lobe subacute infarct Hypertension hypertensive cardiovascular disease Type 2 diabetes mellitus Plan: Neurological and cardiovascular evaluation and therapy in progress Neurontin dose has been adjusted Loop recorder in place Patient being continued on amlodipine and lisinopril along with hydrochlorothiazide and hydralazine, blood pressure is still intermittently high Will observe it for one more day Continue physical therapy deep breathing exercise incentive spirometry Continue home medications Follow clinical course closely Further recommendations pending plan of care as per clinical response of patient patient will need sleep study as outpatient Time with Patient: Greater than 30
--- NOTE | 2020-07-22 16:21 | P.PN ---
Subjective Progress Note Date: 07/22/20 The patient was seen at bedside and stated he has bilateral frontal headache and said he his headache are improving since presentation. Recent stated that the headache are again in the bilateral frontal and they the can be annoying. Denies any photophobia or phonophobia. Denies any nausea or vomiting. He has been having these headaches possibly since his stroke he thinks. The patient blood pressure today was 165/94. Prior to that was 134/72. Last blood pressure at the afternoon today was 127/78. Objective - Vital Signs Vital signs: Vital Signs Temp 98.5 F 07/22/20 14:36 Pulse 85 07/22/20 14:36 Resp 16 07/22/20 14:36 BP 127/78 07/22/20 14:36 Pulse Ox 98 07/22/20 14:36 Intake & Output 07/21/20 07/22/20 07/22/20 18:59 06:59 18:59 Intake Total 660 Balance 660 Weight 82.1 kg Intake: Oral 660 Other: Voiding Method Toilet Toilet Urinal Urinal # Voids 2 1 3 - Exam GENERAL: The patient is lying in bed and is not in acute distress. NEUROLOGICAL: Higher mental function: The patient is awake, alert, oriented to self, place and time. Patient is following simple commands. . Cranial nerves: The pupils are round, equal and reactive to light . Extraocular movement is intact no nystagmus is noted. Facial sensation is normal to touch throughout. There is right lower facial weakness. Patient is severely dysarthric. . Motor: The strength is 5 over 5 throughout. Normal tone and bulk. Sensation: Sensation is decreased over the right hand to touch compared to left. . Cerebellar: Normal finger to nose bilaterally. - Labs CBC & Chem 7: 07/17/20 05:02 07/17/20 05:02 Labs: Abnormal Lab Results - Last 24 Hours (Table) 07/21/20 07/21/20 07/22/20 Range/Units 17:03 20:52 00:44 POC Glucose (mg/dL) 259 H 373 H 255 H (75-99) mg/dL 07/22/20 07/22/20 Range/Units 07:16 11:43 POC Glucose (mg/dL) 232 H 310 H (75-99) mg/dL Assessment and Plan Assessment: * Cephalgia of bilateral frontal with elevated blood pressure--improving * Recent history of acute ischemic stroke on 06/14/2020, with residual moderate dysarthria, and right facial weakness, came with new onset headaches involving bifrontal region, high blood pressure. Patient continues to have high blood pressure, likely the cause of headache. * Hypertension * Diabetes Plan: * CT head revealed no acute intracranial process. There is a new that shaped deficit high left frontal lobe compatible with intervals CVA likely nonacute. No additional areas of abnormal cortical attenuation seen. * Continue dual antiplatelet medications, and high dose Lipitor 80 mg daily. * Patient was on TN sets 1 tablet every 6 hours when necessary and I stopped it because it can cause vasoconstriction and the since the patient has history of stroke will avoid medication. * Patient is on antiviral 1 tablets every 6 hours as needed (can help with headaches and paresthesia of right hand). * Also the patient is on gabapentin 200 mg 1 tablet 3 times a day and and to be continued. * Diabetes is controlled, with A1c 6.6. * Lipids also controlled. * Optimize control of blood pressure, as per IM. * Per Dr. Herman, records from [facility]. Apparently patient was admitted on 06/14/2020, discharged on 06/20/2020. Patient transferred post-TPA from [facility] to [facility]. He was admitted to ICU. No surgical intervention was needed. Patient was discharged on aspirin, Plavix, Lipitor 40 mg and sliding scale coverage. MRI of the brain demonstrated acute to subacute ischemic infarction in the posterior left frontal lobe with regional sulcal effacement. Transthoracic echo was normal. Carotid Doppler showed less than 50% stenosis of the ICA bilaterally. Transesophageal echocardiogram revealed left-ventricular ejection fraction estimated at 50-55%. No thrombus detected in the left atrial appendage. Agitated saline study negative for interatrial shunt/patent foraminal ovale. Mild MR, mild TR, mild plaque seen in the descending aorta. * Again we'll defer the management of hypertension to primary team. * Patient to follow-up with his neurologist as outpatient within 2-3 weeks. * There is no further work-up needed. Matthew Sanchez MD Neuro-Hospitalist Time with Patient: Less than 30
[2020-07-22 16:48] LABS: Glucose,Whole Blood 197 mg/dL (75-99)
[2020-07-22 19:40] LABS: Glucose,Whole Blood 284 mg/dL (75-99)
[2020-07-22] MEDS: ATORVASTATIN 80 MG TAB PO SCH (20:37)
[2020-07-23] MEDS: methylPREDNISolone SOD SUCCI 40 MG/ML 1 ML VIAL IV SCH ×2 (00:48→07:33)
[2020-07-23 07:22] VITALS: BP 154/87; PULSE 73; TEMP 98.1
[2020-07-23] MEDS: SODIUM CHLORIDE 0.9% 1,000 ML IV SCH (07:25)
[2020-07-23 07:30] LABS: Glucose,Whole Blood 235 mg/dL (75-99)
[2020-07-23] MEDS: INSULIN ASPART (NovoLOG) 100 UNIT/ML VIAL SQ SCH ×2 (07:33→07:34)
[2020-07-23] MEDS: PANTOPRAZOLE 40 MG TABLET PO SCH (07:33)
[2020-07-23] MEDS: hydrALAZINE HCL 25 MG TAB PO SCH (08:17)
[2020-07-23] MEDS: ASPIRIN 81 MG PO SCH (08:17)
[2020-07-23] MEDS: MULTIVITAMINS, THERA 1 EACH TAB PO SCH (08:17)
[2020-07-23] MEDS: metFORMIN 500 MG TAB PO SCH (08:17)
[2020-07-23] MEDS: lisinopriL 10 MG TAB PO SCH (08:18)
[2020-07-23] MEDS: DICYCLOMINE 10 MG CAP PO SCH (08:18)
[2020-07-23] MEDS: CLOTRIMAZOLE/BETAMETH 1-0.05% CREAM 45 GM TUBE TOPICAL SCH (08:18)
[2020-07-23] MEDS: hydroCHLOROthiazide 25 MG TAB PO SCH (08:18)
[2020-07-23] MEDS: amLODIPine 10 MG TAB PO SCH (08:18)
[2020-07-23] MEDS: CLOPIDOGREL 75 MG TAB PO SCH (08:18)
[2020-07-23] MEDS: GABAPENTIN 100 MG CAP PO SCH (08:18)
[2020-07-23] MEDS: MAGNESIUM OXIDE 400 MG TAB PO SCH (08:18)
--- NOTE | 2020-07-23 11:26 | P.DS ---
Providers Date of admission: 07/18/20 12:25 Expected date of discharge: 07/23/20 Attending physician: Hawk Gaona Consults: 07/16/20 14:36 Consult Physician Routine Consulting Provider: Kanu Mendieta Consult Reason/Comments: dyspnea Do you want consulting provider notified?: Yes Placement Type Exists?: Yes 07/16/20 16:45 Consult Physician Routine Consulting Provider: Kasia Herman Consult Reason/Comments: recent cva Do you want consulting provider notified?: Yes Placement Type Exists?: Yes 07/17/20 17:24 Consult Physician Routine Consulting Provider: Dwight Brush Consult Reason/Comments: cva Do you want consulting provider notified?: Yes Primary care physician: [facility] Course: 07/23/2020, patient seen eval examined during the rounds ambulating in the hallway and the room breathing comfortably denies any chest pain no syncopal episode and dizziness or headache has been noted today, blood pressure remains well controlled yesterday blood pressure came down after medications, patient is stable from medical standpoint for discharge later on today 07/22/2020, patient seen eval examined ambulating in the room and denies any chest pain however is still have intermittent headaches blood pressure running high medicine are being adjusted, likely will be discharge in next 24 hours if remains stable 07/21/2020 patient is awake and alert laying comfortably on bed denies any chest pain blood pressure have been running high today however slightly better under control cardiovascular services following and evaluating and managing medicine, , Neurontin have been escalated in an attempt to a controlled headache in a better fashion hopefully that will improve her blood pressure as well will follow closely 07/20/2020, patient seen eval examined during the rounds, remains afebrile hemodynamically stable blood pressure slightly on the outside, oxygen saturation 99%, cardiology and neuro have been evaluating the patient, loop recorder in place for syncope 07/18/2020, patient seen evaluated and examined denies any chest pain or shortness of breath at room air breathing comfortably, patient has been evaluated by neurology as well as cardiovascular services, CT of the brain revealed new wet shape infarct left frontal lobe sub acute from June Patient is admitted directly from primary care's office for evaluation of syncope with neurology on consultation This is a 69-year-old male patient originally presented in emergency department on June 14 for evaluation of acute CVA he has significant problem of hypertension hypertensive cardiovascular disease and dyslipidemia patient was found to have a face E a right facial drooping and right leg weakness, of acute onset, CT of the head is negative for any acute stroke, patient was given TPA and was shipped to [facility]. Patient has prior significant history of the mood disorder depression, type 2 diabetes mellitus hypertension hypertensive cardiovascular disease. BPH, x-ray details are not available, patient admitted directly from doctor's office chest x-ray performed revealed no significant pathology, patient is complaining of mild shortness of breath continued to have a face E a and right-sided weakness Assessment: Syncope Intractable headache Bifrontal headaches Shortness of breath however no evidence of pneumonia is seen stable now Right-sided hemiparesis with aphasia/dysphasia uncontrolled hypertension Chronic paroxysmal intermittent atrial fibrillation Sleep disorder breathing and sleep apnea left frontal lobe subacute infarct Hypertension hypertensive cardiovascular disease Type 2 diabetes mellitus Procedures: Brain CT, revealed new wedge-shaped defect in left frontal lobe compatible with interval CVA nonacute Patient Condition at Discharge: Good Plan - Discharge Summary Discharge Rx Participant: No New Discharge Prescriptions: New hydrALAZINE HCL [Apresoline] 25 mg PO TID #90 tab hydroCHLOROthiazide [Hydrodiuril] 25 mg PO DAILY #30 tab Clotrimazole/Betameth Cream [Lotrisone] 1 applic TOPICAL BID #1 applic Gabapentin [Neurontin] 200 mg PO TID #90 cap amLODIPine [Norvasc] 10 mg PO DAILY #30 tab lisinopriL [Zestril] 10 mg PO BID #60 tab Continue Magnesium Oxide [Mag-Ox] 400 mg PO DAILY Dicyclomine [Bentyl] 10 mg PO DAILY HYDROcodone/APAP 7.5-325MG [[place] 7.5-325] 1 tab PO DAILY PRN PRN Reason: Pain Dulaglutide [Trulicity] 1.5 mg SQ SA metFORMIN HCL 500 mg PO DAILY Aspirin EC [Ecotrin Low Dose] 81 mg PO DAILY Atorvastatin [Lipitor] 80 mg PO HS Clopidogrel Bisulfate [Plavix] 75 mg PO DAILY Esomeprazole Magnesium [NexIUM 24Hr] 20 mg PO DAILY Multivitamins, Thera [Multivitamin (formulary)] 1 tab PO DAILY Polymyxin B-Trimeth Sulf Ophth [Polytrim Opthalmic] 2 - 3 drops BOTH EYES BID Ranitidine HCl 150 mg PO BID Nitroglycerin Sl Tabs [Nitrostat] 0.4 mg SL Q5M PRN PRN Reason: Chest Pain Discontinued amLODIPine [Norvasc] 5 mg PO DAILY Gabapentin [Neurontin] 100 mg PO TID Discharge Medication List Magnesium Oxide [Mag-Ox] 400 mg PO DAILY 09/13/17 [History] Dicyclomine [Bentyl] 10 mg PO DAILY 01/22/19 [History] Dulaglutide [Trulicity] 1.5 mg SQ SA 12/27/19 [History] HYDROcodone/APAP 7.5-325MG [[place] 7.5-325] 1 tab PO DAILY PRN 12/27/19 [History] metFORMIN HCL 500 mg PO DAILY 12/27/19 [History] Aspirin EC [Ecotrin Low Dose] 81 mg PO DAILY 07/16/20 [History] Atorvastatin [Lipitor] 80 mg PO HS 07/16/20 [History] Clopidogrel Bisulfate [Plavix] 75 mg PO DAILY 07/16/20 [History] Esomeprazole Magnesium [NexIUM 24Hr] 20 mg PO DAILY 07/16/20 [History] Multivitamins, Thera [Multivitamin (formulary)] 1 tab PO DAILY 07/16/20 [History] Nitroglycerin Sl Tabs [Nitrostat] 0.4 mg SL Q5M PRN 07/16/20 [History] Polymyxin B-Trimeth Sulf Ophth [Polytrim Opthalmic] 2 - 3 drops BOTH EYES BID 07/16/20 [History] Ranitidine HCl 150 mg PO BID 07/16/20 [History] Clotrimazole/Betameth Cream [Lotrisone] 1 applic TOPICAL BID #1 applic 07/23/20 [Rx] Gabapentin [Neurontin] 200 mg PO TID #90 cap 07/23/20 [Rx] amLODIPine [Norvasc] 10 mg PO DAILY #30 tab 07/23/20 [Rx] hydrALAZINE HCL [Apresoline] 25 mg PO TID #90 tab 07/23/20 [Rx] hydroCHLOROthiazide [Hydrodiuril] 25 mg PO DAILY #30 tab 07/23/20 [Rx] lisinopriL [Zestril] 10 mg PO BID #60 tab 07/23/20 [Rx] Follow up Appointment(s)/Referral(s): Hawk Gaona MD [Primary Care Provider] - 1-2 Days [facility], [NON-STAFF] - 1-2 Days
[2020-07-23 12:19] LABS: Glucose,Whole Blood 273 mg/dL (75-99)
== END 2020-07-23 14:20 | disposition home or self-care (01) | DRG 65 ==
LOC: 6NMEDSUR 12:57 → OBSVTOIN 07-18 12:25
PROVIDERS: ADMIT Family Medicine; ATTEND Family Medicine
PROC: 4A02XFZ Measurement of Cardiac Rhythm, External Approach (ICD-10-PCS; principal; 2020-07-18)
DX: I63.59 Cerebral infarction due to unspecified occlusion or stenosis of other cerebral artery (principal); G81.91 Hemiplegia, unspecified affecting right dominant side; I48.20 Chronic atrial fibrillation, unspecified; E87.1 Hypo-osmolality and hyponatremia; R47.01 Aphasia; R47.02 Dysphasia; I11.9 Hypertensive heart disease without heart failure; R51.9 Headache, unspecified; E78.5 Hyperlipidemia, unspecified; F32.9 Major depressive disorder, single episode, unspecified; E11.9 Type 2 diabetes mellitus without complications; E86.0 Dehydration; I08.1 Rheumatic disorders of both mitral and tricuspid valves; K21.9 Gastro-esophageal reflux disease without esophagitis; G47.33 Obstructive sleep apnea (adult) (pediatric); F41.9 Anxiety disorder, unspecified; J44.9 Chronic obstructive pulmonary disease, unspecified; N40.0 Benign prostatic hyperplasia without lower urinary tract symptoms; Z79.84 Long term (current) use of oral hypoglycemic drugs; Z79.02 Long term (current) use of antithrombotics/antiplatelets; Z79.82 Long term (current) use of aspirin; Z79.899 Other long term (current) drug therapy; Z87.19 Personal history of other diseases of the digestive system; Z86.14 Personal history of Methicillin resistant Staphylococcus aureus infection; Z90.49 Acquired absence of other specified parts of digestive tract; Z98.42 Cataract extraction status, left eye; Z98.41 Cataract extraction status, right eye; Z98.890 Other specified postprocedural states; Z81.8 Family history of other mental and behavioral disorders; Z82.0 Family history of epilepsy and other diseases of the nervous system; Z88.5 Allergy status to narcotic agent; Z88.8 Allergy status to other drugs, medicaments and biological substances; Z91.041 Radiographic dye allergy status; I69.322 Dysarthria following cerebral infarction; I69.392 Facial weakness following cerebral infarction; Z45.09 Encounter for adjustment and management of other cardiac device
CPT/HCPCS: 70450; 71046; 74230; 80053; 81003; 83036; 84484; 85025; 85379; 85652; 86140

== ENCOUNTER 2020-07-24 18:39 | Emergency (ER) | payer MEDICARE, OTHER ==
[2020-07-24 18:48] VITALS: TEMP 98.4
[2020-07-24] MEDS ORDERED: HYDROmorphone 1 MG/ML 1 ML SYRINGE IVP STA (19:07)
[2020-07-24] MEDS ORDERED: SODIUM CHLORIDE 0.9% 1,000 ML IV STA ×2 (19:07→19:50)
[2020-07-24] MEDS ORDERED: ONDANSETRON 4 MG/2 ML VIAL IVP STA (19:07)
--- NOTE | 2020-07-24 19:12 | ED ---
Abdominal Pain HPI - General Chief Complaint: Abdominal Pain Stated Complaint: DC yesterday Vomiting/Abd pain Time Seen by Provider: 07/24/20 18:54 Source: patient, RN notes reviewed Mode of arrival: wheelchair Limitations: no limitations - History of Present Illness Initial Comments: Patient is a 69-year-old male that presents to emergency department complaining of abdominal pain, nausea, vomiting. He had 2 episodes of emesis today both of which were nonbloody and nonbilious. His did note that he was just recently discharged from the hospital earlier this morning after suffering a CVA approximately 10 days ago. He stated that he has abdominal pain is about a 9 out of 10 currently with no relief from anything. He did note that it was te nder over the entire abdomen and radiated to the back. The pain is dull in sensation. noted that he is constipated regularly but did have a regular bowel movement yesterday. Patient didn't appear to be in mild distress while sitting up in bed during the exam and interview. He denied any chest pain shortness of breath headache diarrhea fever fatigue chills lightheadedness dizziness hematochezia melena - Related Data Home Medications Medication Instructions Recorded Confirmed Magnesium Oxide [Mag-Ox] 400 mg PO DAILY 09/13/17 07/16/20 Dicyclomine [Bentyl] 10 mg PO DAILY 01/22/19 07/16/20 Dulaglutide [Trulicity] 1.5 mg SQ SA 12/27/19 07/16/20 HYDROcodone/APAP 7.5-325MG [[place] 1 tab PO DAILY PRN 12/27/19 07/16/20 7.5-325] metFORMIN HCL 500 mg PO DAILY 12/27/19 07/16/20 Aspirin EC [Ecotrin Low Dose] 81 mg PO DAILY 07/16/20 07/16/20 Atorvastatin [Lipitor] 80 mg PO HS 07/16/20 07/16/20 Clopidogrel Bisulfate [Plavix] 75 mg PO DAILY 07/16/20 07/16/20 Esomeprazole Magnesium [NexIUM 20 mg PO DAILY 07/16/20 07/16/20 24Hr] Multivitamins, Thera [Multivitamin 1 tab PO DAILY 07/16/20 07/16/20 (formulary)] Nitroglycerin Sl Tabs [Nitrostat] 0.4 mg SL Q5M PRN 07/16/20 07/16/20 Polymyxin B-Trimeth Sulf Ophth 2 - 3 drops BOTH EYES BID 07/16/20 07/16/20 [Polytrim Opthalmic] Ranitidine HCl 150 mg PO BID 07/16/20 07/16/20 Previous Rx's Medication Instructions Recorded Clotrimazole/Betameth Cream 1 applic TOPICAL BID #1 applic 07/23/20 [Lotrisone] Gabapentin [Neurontin] 200 mg PO TID #90 cap 07/23/20 amLODIPine [Norvasc] 10 mg PO DAILY #30 tab 07/23/20 hydrALAZINE HCL [Apresoline] 25 mg PO TID #90 tab 07/23/20 hydroCHLOROthiazide [Hydrodiuril] 25 mg PO DAILY #30 tab 07/23/20 lisinopriL [Zestril] 10 mg PO BID #60 tab 07/23/20 Allergies Allergy/AdvReac Type Severity Reaction Status Date / Time dipyridamole AdvReac Nausea & Verified 07/24/20 18:48 [From Persantine] Vomiting Iodinated Contrast Media AdvReac Nausea & Verified 07/24/20 18:48 [Iodinated Contrast Media - Vomiting IV Dye] morphine AdvReac Nausea & Verified 07/24/20 18:48 Vomiting Review of Systems ROS Statement: Those systems with pertinent positive or pertinent negative responses have been documented in the HPI. ROS Other: All systems not noted in ROS Statement are negative. Past Medical History Past Medical History: Chest Pain / Angina, Diabetes Mellitus, GERD/Reflux, Hyperlipidemia, Hypertension, Sleep Apnea/CPAP/BIPAP, Syncope Additional Past Medical History / Comment(s): IDDM, ERIKA cannot tolerate CPAP, varicose veins, hiatal hernia, constipation occas bleeding with stools, hemorrhoids, hyperkalemia History of Any Multi-Drug Resistant Organisms: MRSA Date of last positivie culture/infection: November 2017 MDRO Source:: Abdomen at [facility] per Dr. Verdin Past Surgical History: Back Surgery, Cholecystectomy, Heart Catheterization, Hernia Repair Additional Past Surgical History / Comment(s): arthroscopy right knee. bilateral cataracts, jeancarlos inguinal hernia repair, alban funloplasty(stomach wrapped) Past Anesthesia/Blood Transfusion Reactions: No Reported Reaction Past Psychological History: Anxiety Smoking Status: Never smoker Past Alcohol Use History: Rare Past Drug Use History: None Reported - Past Family History Mother Family Medical History: Dementia Additional Family Medical History / Comment(s): HAD PACEMAKER, age 86, Father Family Medical History: Dementia Additional Family Medical History / Comment(s): Alzheimer General Exam Limitations: no limitations, language barrier (Recent CVA) General appearance: alert, in distress (Mild) Head exam: Present: atraumatic, normocephalic, normal inspection Eye exam: Present: normal appearance, PERRL, EOMI. Absent: scleral icterus, conjunctival injection, periorbital swelling ENT exam: Present: normal exam, mucous membranes moist Neck exam: Present: normal inspection. Absent: tenderness, meningismus, lymphadenopathy Respiratory exam: Present: normal lung sounds bilaterally. Absent: respiratory distress, wheezes, rales, rhonchi, stridor Cardiovascular Exam: Present: regular rate, normal rhythm, normal heart sounds. Absent: systolic murmur, diastolic murmur, rubs, gallop, clicks GI/Abdominal exam: Present: soft, tenderness (Generalized over her entire abdomen.), normal bowel sounds. Absent: distended, guarding, rebound, rigid Extremities exam: Present: normal inspection, full ROM, normal capillary refill. Absent: tenderness, pedal edema, joint swelling, calf tenderness Back exam: Present: normal inspection Neurological exam: Present: alert, oriented X3, CN II-XII intact Psychiatric exam: Present: normal affect, normal mood Skin exam: Present: warm, dry, intact, normal color. Absent: rash Course Vital Signs 07/24/20 07/24/20 18:45 19:29 Temperature 98.4 F Pulse Rate 89 77 Respiratory 18 16 Rate Blood Pressure 163/102 138/92 O2 Sat by Pulse 99 92 L Oximetry - Reevaluation(s) Reevaluation #1: 07/24/20 19:54 Patient became agitated with nurses, stating that he wanted to get up and leave AMA. After conversation tag writer calm him down and he decided that he was going to stay until Medications again this evening to bring the fever down. She was informed of the benefits risks and alternatives to treatment ER, and that if he leaves AMA he accepts all responsibility for the outcome his health. Medical Decision Making - Medical Decision Making 69-year-old male complaining of abdominal pain, nausea, vomiting 2. CT of abdomen and pelvis, labs, 1 L normal saline, pain medication, antiemetic medication ordered. Elevated white count of 15.9, hyponatremic at [address] came back negative for any acute process. Case discussed with Dr. Paredes, was decided the patient to discharge home to patient being comfortable and in no apparent pain. - Lab Data Result diagrams: 07/24/20 19:29 07/24/20 19:29 Lab Results 07/24/20 07/24/20 07/24/20 Range/Units 19:29 19:29 19:29 WBC 15.9 H (3.8-10.6) k/uL RBC 5.06 (4.30-5.90) m/uL Hgb 15.7 (13.0-17.5) gm/dL Hct 47.7 (39.0-53.0) % MCV 94.2 (80.0-100.0) fL MCH 31.0 (25.0-35.0) pg MCHC 32.9 (31.0-37.0) g/dL RDW 14.0 (11.5-15.5) % Plt Count 245 (150-450) k/uL MPV 8.4 Neutrophils % 76 % Lymphocytes % 16 % Monocytes % 6 % Eosinophils % 1 % Basophils % 0 % Neutrophils # 12.1 H (1.3-7.7) k/uL Lymphocytes # 2.6 (1.0-4.8) k/uL Monocytes # 1.0 (0-1.0) k/uL Eosinophils # 0.2 (0-0.7) k/uL Basophils # 0.1 (0-0.2) k/uL Sodium 129 L (137-145) mmol/L Potassium 4.5 (3.5-5.1) mmol/L Chloride 91 L (98-107) mmol/L Carbon Dioxide 33 H (22-30) mmol/L Anion Gap 5 mmol/L BUN 35 H (9-20) mg/dL Creatinine 0.83 (0.66-1.25) mg/dL Est GFR (CKD-EPI)AfAm >90 (>60 ml/min/1.73 sqM) Est GFR (CKD-EPI)NonAf 90 (>60 ml/min/1.73 sqM) Glucose 186 H (74-99) mg/dL Plasma Lactic Acid Henry 1.7 (0.7-2.0) mmol/L Calcium 9.4 (8.4-10.2) mg/dL Total Bilirubin 1.3 (0.2-1.3) mg/dL AST 21 (17-59) U/L ALT 30 (4-49) U/L Alkaline Phosphatase 79 (38-126) U/L Total Protein 6.7 (6.3-8.2) g/dL Albumin 3.9 (3.5-5.0) g/dL Amylase 153 H (30-110) U/L Lipase 723 H (23-300) U/L Urine Color Urine Appearance (Clear) Urine pH (5.0-8.0) Ur Specific [place] (1.001-1.035) Urine Protein (Negative) Urine Glucose (UA) (Negative) Urine Ketones (Negative) Urine Blood (Negative) Urine Nitrite (Negative) Urine Bilirubin (Negative) Urine Urobilinogen (<2.0) mg/dL Ur Leukocyte Esterase (Negative) Urine WBC (0-5) /hpf Ur Squamous Epith Cells (0-4) /hpf 07/24/20 Range/Units 20:14 WBC (3.8-10.6) k/uL RBC (4.30-5.90) m/uL Hgb (13.0-17.5) gm/dL Hct (39.0-53.0) % MCV (80.0-100.0) fL MCH (25.0-35.0) pg MCHC (31.0-37.0) g/dL RDW (11.5-15.5) % Plt Count (150-450) k/uL MPV Neutrophils % % Lymphocytes % % Monocytes % % Eosinophils % % Basophils % % Neutrophils # (1.3-7.7) k/uL Lymphocytes # (1.0-4.8) k/uL Monocytes # (0-1.0) k/uL Eosinophils # (0-0.7) k/uL Basophils # (0-0.2) k/uL Sodium (137-145) mmol/L Potassium (3.5-5.1) mmol/L Chloride (98-107) mmol/L Carbon Dioxide (22-30) mmol/L Anion Gap mmol/L BUN (9-20) mg/dL Creatinine (0.66-1.25) mg/dL Est GFR (CKD-EPI)AfAm (>60 ml/min/1.73 sqM) Est GFR (CKD-EPI)NonAf (>60 ml/min/1.73 sqM) Glucose (74-99) mg/dL Plasma Lactic Acid Henry (0.7-2.0) mmol/L Calcium (8.4-10.2) mg/dL Total Bilirubin (0.2-1.3) mg/dL AST (17-59) U/L ALT (4-49) U/L Alkaline Phosphatase (38-126) U/L Total Protein (6.3-8.2) g/dL Albumin (3.5-5.0) g/dL Amylase (30-110) U/L Lipase (23-300) U/L Urine Color Light Yellow Urine Appearance Clear (Clear) Urine pH 6.5 (5.0-8.0) Ur Specific [place] 1.019 (1.001-1.035) Urine Protein Negative (Negative) Urine Glucose (UA) Negative (Negative) Urine Ketones Negative (Negative) Urine Blood Negative (Negative) Urine Nitrite Negative (Negative) Urine Bilirubin Negative (Negative) Urine Urobilinogen <2.0 (<2.0) mg/dL Ur Leukocyte Esterase Moderate H (Negative) Urine WBC <1 (0-5) /hpf Ur Squamous Epith Cells <1 (0-4) /hpf - Radiology Data Radiology results: report reviewed, image reviewed Intrathoracic gastric fundus. Nonspecific finding which correlate with the clinical diagnosis of relative dehydration. Disposition Clinical Impression: Pancreatitis, Abdominal pain Disposition: HOME SELF-CARE Condition: Stable Instructions (If sedation given, give patient instructions): Pancreatitis (ED) Additional Instructions: Please return to the Emergency Department if symptoms worsen or any other concerns. Follow-up with primary care 1-2 days. Continue to increase oral fluid intake to avoid dehydration. Do not use anything by mouth for 24 hours. Continue to take medications as prescribed. Is patient prescribed a controlled substance at d/c from ED?: No Referrals: Hawk Gaona MD [Primary Care Provider] - 1-2 days Time of Disposition: 21:27
[2020-07-24 19:30] VITALS: RESP 16
[2020-07-24 19:55] LABS: Basophils # (A) 0.1 k/uL (0-0.2); Basophils % (A) 0 %; Eosinophils # (A) 0.2 k/uL (0-0.7); Eosinophils % (A) 1 %; HCT 47.7 % (39.0-53.0); HGB 15.7 gm/dL (13.0-17.5); Lymphocytes # (A) 2.6 k/uL (1.0-4.8); Lymphocytes % (A) 16 %; MCHC 32.9 g/dL (31.0-37.0); MCV 94.2 fL (80.0-100.0); Mean Platelet Volume 8.4; Monocytes % (A) 6 %; Neutrophils # (A) 12.1 k/uL (1.3-7.7); Neutrophils % (A) 76 %; Platelet Count 245 k/uL (150-450); RBC 5.06 m/uL (4.30-5.90); WBC 15.9 k/uL (3.8-10.6)
[2020-07-24 20:01] LABS: ALT 30 U/L (4-49); AST 21 U/L (17-59); African American GFR (CKD) >90 (>60 ml/min/1.73 sqM); Albumin 3.9 g/dL (3.5-5.0); Alkaline Phosphatase 79 U/L (38-126); Amylase 153 U/L (30-110); Anion Gap 5 mmol/L; Blood Urea Nitrogen 35 mg/dL (9-20); Calcium 9.4 mg/dL (8.4-10.2); Carbon Dioxide 33 mmol/L (22-30); Chloride 91 mmol/L (98-107); Glucose 186 mg/dL (74-99); Lipase 723 U/L (23-300); Non-African American GFR(CKD) 90 (>60 ml/min/1.73 sqM); Potassium 4.5 mmol/L (3.5-5.1); Sodium 129 mmol/L (137-145); Total Bilirubin 1.3 mg/dL (0.2-1.3); Total Protein 6.7 g/dL (6.3-8.2)
[2020-07-24] MEDS ORDERED: diphenhydrAMINE 50 MG/ML 1 ML VIAL IVP ONE (20:02)
[2020-07-24] MEDS ORDERED: methylPREDNISolone SOD SUCCI 125 MG/2 ML VIAL IV ONE (20:02)
[2020-07-24] MEDS ORDERED: FAMOTIDINE 20 MG/2 ML VIAL IV ONE (20:02)
[2020-07-24 20:29] LABS: Appearance,Urine Clear (Clear); Bilirubin,Urine Negative (Negative); Blood,Urine Negative (Negative); Color,Urine Light Yellow; Glucose,Urine (UA) Negative (Negative); Ketones,Urine Negative (Negative); Leukocyte Esterase,Urine Moderate (Negative); Nitrite,Urine Negative (Negative); PH, Urine 6.5 (5.0-8.0); Protein,Urine Negative (Negative); Specific Gravity,Urine 1.019 (1.001-1.035); Squamous Epithelial Cell,Urine <1 /hpf (0-4); Urobilinogen,Urine <2.0 mg/dL (<2.0); WBC,Urine <1 /hpf (0-5)
--- NOTE | 2020-07-24 21:06 | CT ---
EXAMINATION TYPE: CT abdomen pelvis w con DATE OF EXAM: 07/24/2020 HISTORY: abdominal pain, weakness, vomiting TECHNIQUE: Helical acquisition of images was performed from the lung bases through the pelvis. Autom ated exposure control for dose reduction was used. CT DLP: 1698.4 mGycm CONTRAST: Performed without Oral Contrast and with IV Contrast, patient injected with 100 mL of Isovu e 300. COMPARISON: 04/30/2014 CT FINDINGS: LUNG BASES: No acute findings. Prominent coronary calcifications are noted. BOWEL: There are surgical clips at the diaphragmatic hiatus where it appears that the gastric fundus has become intrathoracic in position. The body and antrum of the stomach is unremarkable as is the d uodenum. Small bowel and large bowel are unremarkable. LIVER/GB: No significant abnormality is appreciated. PANCREAS: No significant abnormality is seen. SPLEEN: No significant abnormality is seen. ADRENALS: No significant abnormality is seen. KIDNEYS: No significant abnormality is seen. FREE AIR: No free air is visualized. RETROPERITONEAL ADENOPATHY: None visualized REPRODUCTIVE ORGANS: No significant abnormality is seen URINARY BLADDER: No significant abnormality is seen. PELVIC ADENOPATHY: None visualized. OSSEOUS STRUCTURES: No significant abnormality is seen. OTHER: No acute vascular findings. However, the IVC and renal veins are relatively flattened, which c an correlate with a clinical diagnosis of relative dehydration. IMPRESSION: 1. INTRATHORACIC GASTRIC FUNDUS. 2. NONSPECIFIC FINDING WHICH CAN CORRELATE WITH A CLINICAL DIAGNOSIS OF RELATIVE DEHYDRATION.
[2020-07-24 22:07] VITALS: BP 150/93; PULSE 70
== END 2020-07-24 22:01 | disposition home or self-care (01) ==
LOC: EC 18:39
DX: K85.90 Acute pancreatitis without necrosis or infection, unspecified (principal); E87.1 Hypo-osmolality and hyponatremia; E11.9 Type 2 diabetes mellitus without complications; I10 Essential (primary) hypertension; E78.5 Hyperlipidemia, unspecified; G47.33 Obstructive sleep apnea (adult) (pediatric); K21.9 Gastro-esophageal reflux disease without esophagitis; Z79.82 Long term (current) use of aspirin; Z79.02 Long term (current) use of antithrombotics/antiplatelets; Z79.84 Long term (current) use of oral hypoglycemic drugs; Z79.899 Other long term (current) drug therapy; Z88.8 Allergy status to other drugs, medicaments and biological substances; Z88.5 Allergy status to narcotic agent; Z91.041 Radiographic dye allergy status; Z99.89 Dependence on other enabling machines and devices
CPT/HCPCS: 36415; 80053; 82150; 83605; 83690; 85025; 81001; 74177; 99284; 96374; 96375 ×4; 96361 ×2; J1200; J2930; J2405; J1170; Q9967

== ENCOUNTER → 2020-09-24 | Outpatient (CLI) | payer MEDICARE, OTHER ==
--- NOTE | 2020-09-24 11:58 | FL ---
ESOPHOGRAM. HISTORY: Dysphagia Esophagram was performed per the air contrast technique. The patient swallowed barium and effervesce nt crystals without difficulty or delay. Esophageal peristalsis and motility appear to be within normal limits. There is no evidence for filling defect, mass or diverticulum. Moderate hiatal hernia noted. Subsequently single contrast cervical esophagram was performed which fails demonstrate evidence for a spiration penetration or mass. IMPRESSION: Moderate hiatal hernia.
== END | disposition home or self-care (01) ==
LOC: RADUSWWP 09:55
PROVIDERS: ATTEND Family Medicine
DX: K44.9 Diaphragmatic hernia without obstruction or gangrene (principal)
CPT/HCPCS: 74220

== ENCOUNTER 2021-03-12 06:45 | Day surgery (SDC) | payer MEDICARE, OTHER ==
[2021-03-11 08:47] VITALS: BMI 28.3
[~2021-03-12 06:45] MED LIST changes: +LACTATED RINGERS 1,000 ML IV SCH; -REGADENOSON 0.4 MG/5 ML SYRINGE IV ONE
[2021-03-12 07:19] VITALS: RESP 16; TEMP 98
[2021-03-12 07:26] LABS: Glucose,Whole Blood 95 mg/dL (75-99)
[2021-03-12] MEDS ORDERED: LIDOCAINE 1% (10MG/ML) FOR IV START INTRADERMA ONE (07:27)
[2021-03-12] MEDS ORDERED: PROPOFOL 10 MG/ML 20 ML VIAL IV ONE (08:16)
[2021-03-12] MEDS ORDERED: LIDOCAINE 1% INJ 10MG/ML (20 ML MDV) ONE (08:16)
--- NOTE | 2021-03-12 08:19 | P.GSHP ---
History of Present Illness H&P Date: 03/12/21 Chief Complaint: GERD This is a 70-year-old male with history of hiatal hernia. Patient has completed GERD. He presents today for EGD. Past Medical History Past Medical History: Chest Pain / Angina, CVA/TIA, Diabetes Mellitus, GERD/R eflux, Hyperlipidemia, Hypertension, Sleep Apnea/CPAP/BIPAP, Syncope Additional Past Medical History / Comment(s): Hx "CVA 06/14/20 with residual speech difficulties, right side facial drooping, ambulates slowly, gets confused occasionally." Recent "difficulty swallowing, getting worse, can't swallow water without choking." Current unopen sores on legs. Neuropathy left foot. Cannot tolerate CPAP, varicose veins, hiatal hernia, constipation occasional bleeding with stools, hemorrhoids, hyperkalemia. History of Any Multi-Drug Resistant Organisms: MRSA Date of last positivie culture/infection: November 2017 MDRO Source:: Abdomen at [facility] per Dr. Verdin Past Surgical History: Back Surgery, Cholecystectomy, Heart Catheterization, Hernia Repair Additional Past Surgical History / Comment(s): Right knee arthroscopy, bilateral cataracts, bilateral inguinal hernia repair, alban fundoplasty(stomach wrapped), loop monitor implant placed 06/14/20. Past Anesthesia/Blood Transfusion Reactions: No Reported Reaction Past Psychological History: Anxiety, Depression Smoking Status: Never smoker Past Alcohol Use History: Rare Past Drug Use History: None Reported - Past Family History Mother Family Medical History: Dementia Additional Family Medical History / Comment(s): HAD PACEMAKER, age 86. Father Family Medical History: Dementia Additional Family Medical History / Comment(s): Alzheimers. Medications and Allergies Home Medications Medication Instructions Recorded Confirmed Type Dicyclomine [Bentyl] 10 mg PO DAILY 01/22/19 03/11/21 History metFORMIN HCL [Glucophage] 500 mg PO BID 12/27/19 03/11/21 History Clopidogrel Bisulfate [Plavix] 75 mg PO DAILY 07/16/20 03/11/21 History Atorvastatin [Lipitor] 40 mg PO HS 03/11/21 03/11/21 History Citalopram Hydrobromide 20 mg PO DAILY 03/11/21 03/11/21 History [Citalopram HBr] Enoxaparin [Lovenox] 40 mg SQ DAILY 03/11/21 03/11/21 History Furosemide [Lasix] 20 mg PO BID 03/11/21 03/11/21 History Gabapentin [Neurontin] 100 mg PO TID PRN 03/11/21 03/11/21 History Glimepiride [Amaryl] 4 mg PO DAILY 03/11/21 03/11/21 History Losartan [Cozaar] 25 mg PO QAM 03/11/21 03/11/21 History Omeprazole 20 mg PO HS 03/11/21 03/11/21 History Pantoprazole [Protonix] 40 mg PO HS 03/11/21 03/11/21 History amLODIPine [Norvasc] 10 mg PO QAM 03/11/21 03/11/21 History hydrALAZINE HCL 50 mg PO TID 03/11/21 03/11/21 History sitaGLIPtin PHOSPHATE [Januvia] 100 mg PO DAILY 03/11/21 03/11/21 History Allergies Allergy/AdvReac Type Severity Reaction Status Date / Time dipyridamole AdvReac Nausea & Verified 03/11/21 08:49 [From Persantine] Vomiting Iodinated Contrast Media AdvReac Nausea & Verified 03/11/21 08:49 [Iodinated Contrast Media - Vomiting IV Dye] morphine AdvReac Nausea & Verified 03/11/21 08:49 Vomiting Surgical - Exam Vital Signs Temp Pulse Resp BP Pulse Ox 98.0 F 76 16 166/88 97 03/12/21 07:17 03/12/21 07:17 03/12/21 07:17 03/12/21 07:17 03/12/21 07:17 - General well developed, well nourished, no distress - Eyes PERRL - ENT normal pinna - Neck no masses - Respiratory normal expansion - Cardiovascular Rhythm: regular - Abdomen Abdomen: soft, non tender Assessment and Plan Assessment: GERD. We'll perform EGD.
--- NOTE | 2021-03-12 08:25 | P.OP ---
Date of Procedure: 03/12/21 Preoperative Diagnosis: GERD Postoperative Diagnosis: Antral gastritis Hiatal hernia Esophagitis Procedure(s) Performed: EGD Anesthesia: MAC Surgeon: Lemuel Brown Pathology: other (Antrum, esophagus) Condition: stable Disposition: PACU Description of Procedure: The patient's placed on the endoscopy table in the lateral position. He received IV sedation. The gastroscope was oropharynx past esophagus and stomach. Scope was then placed through the pylorus. The first and second portion of the duodenum appeared normal. Scope was brought back the antrum this. Mildly inflamed. A biopsies performed. The scope was then retroflexed the remainder of the stomach appeared normal. There was a moderate size hiatal hernia. The GE junction was at 37 cm. The distal esophagus appeared inflamed. A biopsies performed. The proximal esophagus appeared normal. Scope withdrawn from patient.
[2021-03-12] MEDS ORDERED: IV FLUID CONTINUATION 1,000 ML IV ONE (08:26)
[2021-03-12 09:07] VITALS: BP 160/91; PULSE 62
== END 2021-03-12 09:24 | disposition home or self-care (01) ==
LOC: ORWHC2ENDO 06:45
PROVIDERS: ATTEND Surgery
DX: K29.50 Unspecified chronic gastritis without bleeding (principal); K20.0 Eosinophilic esophagitis; K44.9 Diaphragmatic hernia without obstruction or gangrene; F41.9 Anxiety disorder, unspecified; N40.0 Benign prostatic hyperplasia without lower urinary tract symptoms; E78.5 Hyperlipidemia, unspecified; I13.0 Hypertensive heart and chronic kidney disease with heart failure and stage 1 through stage 4 chronic kidney disease, or unspecified chronic kidney disease; E11.22 Type 2 diabetes mellitus with diabetic chronic kidney disease; N18.30 Chronic kidney disease, stage 3 unspecified; I50.30 Unspecified diastolic (congestive) heart failure; I69.320 Aphasia following cerebral infarction; I69.351 Hemiplegia and hemiparesis following cerebral infarction affecting right dominant side; K21.9 Gastro-esophageal reflux disease without esophagitis; K58.9 Irritable bowel syndrome, unspecified; Z82.49 Family history of ischemic heart disease and other diseases of the circulatory system; Z81.8 Family history of other mental and behavioral disorders; E87.6 Hypokalemia; E83.42 Hypomagnesemia; E03.9 Hypothyroidism, unspecified; E66.9 Obesity, unspecified; Z68.27 Body mass index [BMI] 27.0-27.9, adult; M15.9 Polyosteoarthritis, unspecified; E78.00 Pure hypercholesterolemia, unspecified; Z86.14 Personal history of Methicillin resistant Staphylococcus aureus infection; G47.33 Obstructive sleep apnea (adult) (pediatric); D64.9 Anemia, unspecified; G47.00 Insomnia, unspecified; Z98.42 Cataract extraction status, left eye; Z98.41 Cataract extraction status, right eye; Z98.890 Other specified postprocedural states; Z79.84 Long term (current) use of oral hypoglycemic drugs; Z79.899 Other long term (current) drug therapy; Z79.01 Long term (current) use of anticoagulants; Z79.02 Long term (current) use of antithrombotics/antiplatelets; Z88.5 Allergy status to narcotic agent; Z88.8 Allergy status to other drugs, medicaments and biological substances; Z91.048 Other nonmedicinal substance allergy status; Z91.041 Radiographic dye allergy status
CPT/HCPCS: 88305; 43239; J2001; J2704

== ENCOUNTER → 2021-03-19 | Outpatient (CLI) | payer MEDICARE, OTHER ==
[2021-03-19 15:35] LABS: Basophils # (A) 0.1 k/uL (0-0.2); Basophils % (A) 1 %; Eosinophils # (A) 0.3 k/uL (0-0.7); Eosinophils % (A) 3 %; HCT 39.6 % (39.0-53.0); HGB 13.4 gm/dL (13.0-17.5); Lymphocytes # (A) 2.7 k/uL (1.0-4.8); Lymphocytes % (A) 29 %; MCH 31.6 pg (25.0-35.0); MCHC 33.7 g/dL (31.0-37.0); MCV 93.5 fL (80.0-100.0); Mean Platelet Volume 9.4; Monocytes # (A) 0.5 k/uL (0-1.0); Monocytes % (A) 5 %; Neutrophils # (A) 5.6 k/uL (1.3-7.7); Neutrophils % (A) 61 %; Platelet Count 220 k/uL (150-450); RBC 4.24 m/uL (4.30-5.90); RDW 12.9 % (11.5-15.5); WBC 9.3 k/uL (3.8-10.6)
== END | disposition home or self-care (01) ==
LOC: LABPAT 13:59
PROVIDERS: ATTEND Surgery
DX: Z01.818 Encounter for other preprocedural examination (principal); K21.00 Gastro-esophageal reflux disease with esophagitis, without bleeding; D64.9 Anemia, unspecified; I45.10 Unspecified right bundle-branch block; I44.4 Left anterior fascicular block; R94.31 Abnormal electrocardiogram [ECG] [EKG]
CPT/HCPCS: 85025; 93005

== ENCOUNTER → 2021-07-03 | Outpatient (CLI) | payer MEDICARE, OTHER ==
--- NOTE | 2021-07-03 13:55 | FL ---
EXAMINATION TYPE: FL barium swallow DATE OF EXAM: 07/03/2021 COMPARISON: 09/24/2020 HISTORY: GERD, pain, dysphasia TECHNIQUE: Double air contrast technique. FINDINGS: Esophagus dilates to normal caliber. Small hiatal hernia is present in the distal esophagus . Significant reflux filling the esophagus to the level of the clavicles was evident during the exam. No suspicious intraluminal or extramural defect is evident. IMPRESSION: 1. Gastroesophageal reflux to the level of the esophagus. 2. Small sliding-type hiatal hernia.
== END | disposition home or self-care (01) ==
LOC: RADUSWWP 10:54
PROVIDERS: ATTEND Surgery
DX: K44.9 Diaphragmatic hernia without obstruction or gangrene (principal); K21.9 Gastro-esophageal reflux disease without esophagitis
CPT/HCPCS: 74220

== ENCOUNTER 2021-07-15 07:40 | Observation (INO) | payer MEDICARE, OTHER ==
[~2021-07-15 07:40] MED LIST changes: +ACETAMINOPHEN TAB 500 MG TAB PO PRN; +DEXAMETHASONE SOD PHOSPHATE 4 MG/ML 1 ML VIAL IV ONE; +HEPARIN SODIUM,PORCINE/PF 5,000 UNIT/0.5 ML SYRINGE SQ PRN; -LACTATED RINGERS 1,000 ML IV SCH; +LIDOCAINE 1% (10MG/ML) FOR IV START INTRADERMA PRN; +MIDAZOLAM 2 MG/2 ML VIAL IV PRN; +ONDANSETRON 4 MG/2 ML VIAL IVP ONE
[2021-07-15] MEDS ORDERED: ACETAMINOPHEN IV (For NPO) 1,000 MG in EMPTY BAG 1 BAG IVPB ONE (08:16)
[2021-07-15] MEDS: LACTATED RINGERS 1,000 ML IV SCH (08:40)
[2021-07-15 09:02] LABS: Glucose,Whole Blood 129 mg/dL (75-99)
--- NOTE | 2021-07-15 10:02 | P.GSHP ---
History of Present Illness H&P Date: 07/15/21 Chief Complaint: Paraesophageal hernia Is a 70-year-old male who has developed a paraesophageal hernia. Patient resents today for laparoscopic robotic-assisted repair. He's had issues with dysphagia and GERD. Past Medical History Past Medical History: Chest Pain / Angina, CVA/TIA, Diabetes Mellitus, GERD/Reflux, Hyperlipidemia, Hypertension, Sleep Apnea/CPAP/BIPAP, Syncope Additional Past Medical History / Comment(s): hiatal hernia,Hx "CVA 06/14/20 with residual speech difficulties, right side facial drooping, ambulates slowly, gets confused occasionally." Recent "difficulty swallowing, getting worse, can't swallow water without choking,unable to swallow meds without applesauce." Neuropathy left foot. Cannot tolerate CPAP, varicose veins, hiatal hernia, constipation occasional bleeding with stools, hemorrhoids, hyperkalemia. History of Any Multi-Drug Resistant Organisms: MRSA Date of last positivie culture/infection: November 2017 MDRO Source:: Abdomen at [facility] per Dr. Verdin Past Surgical History: Back Surgery, Cholecystectomy, Heart Catheterization, Hernia Repair Additional Past Surgical History / Comment(s): EGD,Right knee arthroscopy, bilateral cataracts, bilateral inguinal hernia repair, alban fundoplasty(stomach wrapped), loop monitor implant placed 06/14/20. Past Anesthesia/Blood Transfusion Reactions: No Reported Reaction Additional Past Anesthesia/Blood Transfusion Reaction / Comment(s): no hx blood transfusion Past Psychological History: Anxiety, Depression Additional Psychological History / Comment(s): Pt resides with his spouse. He is independent. has a glucometer and bp machine. Smoking Status: Never smoker Past Alcohol Use History: Rare Additional Past Alcohol Use History / Comment(s): Occasional beer. Past Drug Use History: None Reported - Past Family History Mother Family Medical History: Dementia Additional Family Medical History / Comment(s): HAD PACEMAKER, age 86. Father Family Medical History: Dementia Additional Family Medical History / Comment(s): Alzheimers. Medications and Allergies Home Medications Medication Instructions Recorded Confirmed Type Dicyclomine [Bentyl] 10 mg PO TID 01/22/19 07/10/21 History metFORMIN HCL [Glucophage] 500 mg PO BID 12/27/19 07/10/21 History Clopidogrel Bisulfate [Plavix] 75 mg PO DAILY 07/16/20 07/15/21 History Atorvastatin [Lipitor] 40 mg PO W/SUPPER 03/11/21 07/10/21 History Citalopram Hydrobromide 20 mg PO QAM 03/11/21 07/10/21 History [Citalopram HBr] Furosemide [Lasix] 20 mg PO TID 03/11/21 07/10/21 History Gabapentin [Neurontin] 300 mg PO HS 03/11/21 07/10/21 History Losartan [Cozaar] 25 mg PO QAM 03/11/21 07/10/21 History Omeprazole 20 mg PO HS PRN 03/11/21 07/10/21 History Pantoprazole [Protonix] 40 mg PO QAM 03/11/21 07/10/21 History amLODIPine [Norvasc] 10 mg PO QAM 03/11/21 07/10/21 History hydrALAZINE HCL 50 mg PO TID 03/11/21 07/10/21 History sitaGLIPtin PHOSPHATE [Januvia] 100 mg PO DAILY 03/11/21 07/10/21 History Allergies Allergy/AdvReac Type Severity Reaction Status Date / Time dipyridamole AdvReac Nausea & Verified 07/15/21 08:13 [From Persantine] Vomiting Iodinated Contrast Media AdvReac Nausea & Verified 07/15/21 08:13 [Iodinated Contrast Media - Vomiting IV Dye] morphine AdvReac Nausea & Verified 07/15/21 08:13 Vomiting Surgical - Exam Vital Signs Temp Pulse Resp BP Pulse Ox 97.2 F L 90 16 153/86 97 07/15/21 08:24 07/15/21 08:24 07/15/21 08:24 07/15/21 08:24 07/15/21 08:24 - General well developed, well nourished, no distress - Eyes PERRL - ENT normal pinna - Neck no masses - Respiratory normal expansion - Cardiovascular Rhythm: regular - Abdomen Abdomen: soft, non tender Results - Labs Abnormal Lab Results - Last 24 Hours (Table) 07/15/21 Range/Units 09:00 POC Glucose (mg/dL) 129 H (75-99) mg/dL Assessment and Plan Assessment: Paraesophageal hernia. We'll perform laparoscopic robotic-assisted repair.
[2021-07-15] MEDS ORDERED: NEOSTIGMINE 1 MG/ML 10 ML VIAL ONE (10:24)
[2021-07-15] MEDS ORDERED: PROPOFOL 10 MG/ML 20 ML VIAL IV ONE (10:24)
[2021-07-15] MEDS ORDERED: ePHEDrine 50 MG/ML 1 ML AMP ONE (10:24)
[2021-07-15] MEDS ORDERED: LIDOCAINE 1% INJ 10MG/ML (20 ML MDV) ONE (10:24)
[2021-07-15] MEDS ORDERED: GLYCOPYRROLATE 0.2 MG/ML 2 ML VIAL ONE (10:24)
[2021-07-15] MEDS ORDERED: WATER FOR INJECTION, STERILE 10 ML VIAL IV ONE (10:24)
[2021-07-15] MEDS ORDERED: SUCCINYLCHOLINE CHLORIDE 100 MG/5 ML SYR IV ONE (10:24)
[2021-07-15] MEDS ORDERED: MIDAZOLAM 2 MG/2 ML VIAL ONE (10:24)
[2021-07-15] MEDS ORDERED: fentaNYL (PF) 50 MCG/ML 2 ML AMP ONE (10:24)
[2021-07-15] MEDS ORDERED: ROCURONIUM 10 MG/ML (5 ML VIAL) IV ONE (10:24)
[2021-07-15] MEDS ORDERED: BUPIVACAIN-EPI 0.25%-1:200,000 30 ML VIAL SQ ONE (10:54)
[2021-07-15] MEDS ORDERED: LACTATED RINGERS 1,000 ML IV ONE (11:08)
[2021-07-15] MEDS ORDERED: ONDANSETRON 4 MG/2 ML VIAL IVP PRN (11:58)
--- NOTE | 2021-07-15 11:58 | P.OP ---
Date of Procedure: 07/15/21 Preoperative Diagnosis: Paraesophageal hernia Postoperative Diagnosis: Paraesophageal hernia Procedure(s) Performed: Laparoscopic repair of paraesophageal hernia with [place] bio a mesh Anesthesia: MAC Surgeon: Lemuel Brown Estimated Blood Loss (ml): 10 Pathology: none sent Condition: stable Disposition: PACU Description of Procedure: HarmThe patient was placed on the operating table in the supine position. The patient received general anesthesia. And was placed in dorsal lithotomy position. The patient was prepped and draped in the usual sterile fashion. The skin incision sites were anesthetized with 1% local Xylocaine. The skin was incised in the left periumbilical area and then using a blade less 5 mm trocar under direct visualization panel cavity was entered. After adequate insufflation the laparoscope was then placed into the peritoneal cavity. Next a 5 mm trochars placed in the right epigastric position. Another 5 millimeter trocar the right lateral position. Another 5 millimeter trocar in the left lateral position a 5 mm trocar is placed in the left epigastric position. And then the initial 5 mm trocar was exchanged for a 10 mm trocar. The left lateral lobe liver was retracted. The paraesophageal hernia was visualized. Using the Harmonic scissors the stomach was dissected free and brought down into the peritoneal cavity. The crural defect was visualized. The crural defect was then closed using 2-0 Ethibond suture. Once the crura was adequately closed the piece of [place] bio a mesh was placed over top the repair and secured with 2-0 Ethibond suture. The 58-Slovenian bougie dilator was placed in patient's esophagus and the stomach. There is no evidence of any obstruction of the GE junction. The dilator was withdrawn. There was irrigated there is no bleeding seen. The trochars withdrawn. The skin was then closed interrupted 3-0 Monocryl suture.
[2021-07-15] MEDS: HYDROmorphone 0.5 MG/0.5 ML SYRINGE IVP PRN ×3 (12:20→13:00)
[2021-07-15 12:28] LABS: Glucose,Whole Blood 217 mg/dL (75-99)
--- NOTE | 2021-07-15 14:48 | FL ---
Single contrast esophagram EXAMINATION TYPE: FL esophagus cervic/pharynx DATE OF EXAM: 07/15/2021 2:38 PM COMPARISON: NONE CLINICAL HISTORY: Status post Emmett fundoplication The patient ingested contrast without difficulty. Noted are changes of Emmett fundoplication. There is no evidence for leak. There is mild delay and esophagogastric transit. Small amount of residual co ntrast within the distal esophagus. IMPRESSION: mild delay and esophagogastric transit.
[2021-07-15] MEDS: D5-0.45% NACL WITH KCL 20MEQ/L 1,000 ML IV SCH (16:09)
[2021-07-15] MEDS: METOCLOPRAMIDE 5 MG/ML 2 ML VIAL IVP SCH ×3 (16:09→23:25)
[2021-07-15] MEDS: HYDROmorphone 1 MG/ML 1 ML SYRINGE IVP PRN ×2 (16:14→21:01)
[2021-07-15 21:19] LABS: Glucose,Whole Blood 314 mg/dL (75-99)
[2021-07-15] MEDS: FUROSEMIDE 20 MG TAB PO SCH (23:19)
[2021-07-15] MEDS: hydrALAZINE HCL 50 MG TAB PO SCH (23:25)
[2021-07-15] MEDS: INSULIN ASPART (NovoLOG) 100 UNIT/ML VIAL SQ SCH (23:25)
[2021-07-16] MEDS: HYDROmorphone 1 MG/ML 1 ML SYRINGE IVP PRN ×2 (04:00→19:37)
[2021-07-16] MEDS: D5-0.45% NACL WITH KCL 20MEQ/L 1,000 ML IV SCH ×4 (04:44→21:00)
[2021-07-16] MEDS: METOCLOPRAMIDE 5 MG/ML 2 ML VIAL IVP SCH ×3 (06:08→17:31)
[2021-07-16] MEDS: LACTATED RINGERS 1,000 ML IV SCH (06:11)
[2021-07-16 07:48] LABS: Glucose,Whole Blood 172 mg/dL (75-99)
[2021-07-16] MEDS: LOSARTAN 25 MG TAB PO SCH (08:26)
[2021-07-16] MEDS: amLODIPine 10 MG TAB PO SCH (08:26)
[2021-07-16] MEDS: hydrALAZINE HCL 50 MG TAB PO SCH ×3 (08:26→20:58)
[2021-07-16] MEDS: INSULIN ASPART (NovoLOG) 100 UNIT/ML VIAL SQ SCH ×4 (08:27→20:58)
[2021-07-16] MEDS: FUROSEMIDE 20 MG TAB PO SCH ×3 (08:27→20:57)
[2021-07-16] MEDS: PANTOPRAZOLE 40 MG TABLET PO SCH (08:29)
[2021-07-16] MEDS ORDERED: ENOXAPARIN 30 MG/0.3 ML SYRINGE SQ SCH (09:00)
[2021-07-16 10:44] LABS: Basophils % (A) 0 %; Eosinophils # (A) 0.1 k/uL (0-0.7); Eosinophils % (A) 1 %; HCT 36.7 % (39.0-53.0); HGB 12.3 gm/dL (13.0-17.5); Lymphocytes # (A) 2.3 k/uL (1.0-4.8); Lymphocytes % (A) 18 %; MCH 33.1 pg (25.0-35.0); MCHC 33.5 g/dL (31.0-37.0); MCV 98.9 fL (80.0-100.0); Mean Platelet Volume 9.4; Monocytes # (A) 0.8 k/uL (0-1.0); Monocytes % (A) 7 %; Neutrophils # (A) 9.6 k/uL (1.3-7.7); Neutrophils % (A) 74 %; Platelet Count 191 k/uL (150-450); RBC 3.71 m/uL (4.30-5.90); RDW 12.6 % (11.5-15.5)
[2021-07-16] MEDS ORDERED: OMEPRAZOLE 20 MG PO PRN (10:49)
[2021-07-16] MEDS: KETOROLAC 30 MG/ML 1 ML VIAL IVP SCH ×3 (11:05→20:59)
[2021-07-16] MEDS: DEXAMETHASONE SOD PHOSPHATE 4 MG/ML 1 ML VIAL IVP SCH ×2 (11:08→17:31)
[2021-07-16] MEDS: CITALOPRAM HYDROBROMIDE 20 MG TAB PO SCH (11:16)
[2021-07-16 11:31] LABS: African American GFR (CKD) >90 (>60 ml/min/1.73 sqM); Anion Gap 8 mmol/L; Blood Urea Nitrogen 12 mg/dL (9-20); Calcium 8.3 mg/dL (8.4-10.2); Carbon Dioxide 27 mmol/L (22-30); Chloride 99 mmol/L (98-107); Glucose 197 mg/dL (74-99); Magnesium 1.3 mg/dL (1.6-2.3); Non-African American GFR(CKD) 84 (>60 ml/min/1.73 sqM); Potassium 3.3 mmol/L (3.5-5.1); Sodium 134 mmol/L (137-145)
[2021-07-16 11:53] LABS: Glucose,Whole Blood 220 mg/dL (75-99)
[2021-07-16] MEDS ORDERED: HYDROcodone/APAP 5-325MG 1 EACH TAB PO PRN (12:56)
[2021-07-16] MEDS: POTASSIUM CHLORIDE ER 20 MEQ TAB.ER PO STA ×2 (13:20→13:23)
[2021-07-16] MEDS: MAGNESIUM SULFATE-D5W PMX 1 GM in DEXTROSE/WATER 1 100ML.BAG IVPB SCH ×2 (13:21→15:11)
[2021-07-16] MEDS: SIMETHICONE 40 MG/0.6 ML DROPS 2,000 MG/30 ML BOTTLE PO SCH ×3 (13:21→20:58)
[2021-07-16] MEDS ORDERED: Potassium Replacement Protocol 1 EACH MISC MISCELLANE PRN (13:29)
--- NOTE | 2021-07-16 13:41 | P.PN ---
Subjective Progress Note Date: 07/16/21 CHIEF COMPLAINT: Paraesophageal hernia HISTORY OF PRESENT ILLNESS: Patient is status post laparoscopic repair of paraesophageal hernia with mesh. Postoperatively #1. Upper GI shows mild delay with esophagogastric transit. Patient having a lot of nausea and vomiting the night and this morning even with the Zofran and Reglan. Patient reporting abdominal pain. No flatus. He reports his pain on 02/13. Afebrile. WBC 13 hemoglobin 12.3 platelets 191 sodium 134 potassium is 3.3 creatinine 0.92 magnes ium 1.3 PHYSICAL EXAM: VITAL SIGNS: Reviewed. GENERAL: Well-developed in no acute distress. HEENT: No sclera icterus. Extraocular movements grossly intact. Moist buccal mucosa. Head is atraumatic, normocephalic. ABDOMEN: Distended. Mild diffuse tenderness. Incision sites clean dry and intact. NEUROLOGIC: Alert and oriented. Cranial nerves II through XII grossly intact. ASSESSMENT: 1. Status post laparoscopic repair of paraesophageal hernia with mesh 2. Hypomagnesemia 3. Hypokalemia PLAN: -Add Decadron IV scheduled to help with the nausea and vomiting and evidence of delayed transit through the esophagus on upper GI -Continue Zofran and Reglan -Add Toradol to help with pain -Add simethicone drops to help with gas pains -Continue Ben clear liquids -Encouraged patient to ambulate -Replace magnesium and potassium -Anticipate discharge tomorrow Physician Bag Adjuster note has been reviewed by physician. Signing provider agrees with the documented findings, assessment, and plan of care. Objective - Vital Signs Vital signs: Vital Signs Temp 97.9 F 07/16/21 08:00 Pulse 93 07/16/21 08:00 Resp 18 07/16/21 08:00 BP 162/63 07/16/21 08:00 Pulse Ox 93 L 07/16/21 08:00 Intake & Output 07/15/21 07/16/21 07/16/21 18:59 06:59 18:59 Intake Total 2775 400 Output Total 5 Balance 2770 400 Weight 86.7 kg Intake: IV 2000 Intake, IV Titration 375 Amount D5-0.45% NaCl with KCl 375 20Meq/l 1,000 ml @ 125 mls/hr IV .Q8H [facility] Rx#: [id number] Oral 400 400 Output: Estimated Blood Loss 5 Other: Voiding Method Urinal # Voids 4 # Bowel Movements 0 - Labs CBC & Chem 7: 07/16/21 10:26 07/16/21 10:26 Labs: Abnormal Lab Results - Last 24 Hours (Table) 07/15/21 07/16/21 07/16/21 Range/Units 21:06 07:47 10:26 WBC 13.0 H (3.8-10.6) k/uL RBC 3.71 L (4.30-5.90) m/uL Hgb 12.3 L (13.0-17.5) gm/dL Hct 36.7 L (39.0-53.0) % Neutrophils # 9.6 H (1.3-7.7) k/uL Sodium (137-145) mmol/L Potassium (3.5-5.1) mmol/L Glucose (74-99) mg/dL POC Glucose (mg/dL) 314 H 172 H (75-99) mg/dL Calcium (8.4-10.2) mg/dL Magnesium (1.6-2.3) mg/dL 07/16/21 07/16/21 Range/Units 10:26 11:52 WBC (3.8-10.6) k/uL RBC (4.30-5.90) m/uL Hgb (13.0-17.5) gm/dL Hct (39.0-53.0) % Neutrophils # (1.3-7.7) k/uL Sodium 134 L (137-145) mmol/L Potassium 3.3 L (3.5-5.1) mmol/L Glucose 197 H (74-99) mg/dL POC Glucose (mg/dL) 220 H (75-99) mg/dL Calcium 8.3 L (8.4-10.2) mg/dL Magnesium 1.3 L (1.6-2.3) mg/dL
[2021-07-16 14:03] VITALS: BMI 26.6
[2021-07-16] MEDS: POTASSIUM CHLORIDE 10 MEQ in WATER FOR INJECTION 1 100ML.BAG IVPB SCH ×4 (14:04→17:41)
[2021-07-16 17:13] LABS: Glucose,Whole Blood 213 mg/dL (75-99)
[2021-07-16] MEDS ORDERED: ATORVASTATIN 40 MG TAB PO SCH (17:30)
--- NOTE | 2021-07-16 19:46 | P.CONS ---
History of Present Illness - Reason for Consult Consult date: 07/16/21 Medical management Requesting physician: Lemuel Brown - Chief Complaint Abdominal surgery - History of Present Illness This is a 70-year-old patient, follows with Dr. Hawk Gaona. Patient is undergoing laparoscopic repair of paraesophageal hernia with mesh. Yesterday. Chronic stable medical conditions include diabetes, GERD, hypertension, hyperlipidemia, obstructive sleep apnea, stroke in June 2020 resulted with some dysarthria, right-sided facial weakness, some weakness on the right arm. Patient also some difficulty swallowing. Neuropathy of the lower extremity. Hemorrhoids. Patient is on undescended clear liquid diet. Some discomfort of the abdominal site. Laying in bed. Awake. Review of systems: GEN.: Tired EYES: None HEENT: None NECK: None RESPIRATORY: None CARDIOVASCULAR: None GASTROINTESTINAL: As above with some nausea GENITOURINARY: None MUSCULOSKELETAL: None LYMPHATICS: None HEMATOLOGICAL: None PSYCHIATRY: Forgetful NEUROLOGICAL: As above Past medical history to include: Diabetes, GERD, hyperlipidemia, hypertension, stroke in 2020 with dysarthria, right face weakness, some right arm weakness dysphagia neuropathy patient cannot tolerate CPAP varicose veins hemorrhoids Social history: Lives with his . No smoking. Alcohol rarely Family history: Dementia, pacemaker Physical examination: VITAL SIGNS: 97.9, 93, 18, 16 2 x 63, 93% room air GENERAL: BMI 26.7, laying in bed, awake, not in distress. EYES: Pupils equal. Conjunctiva normal. HEENT: External appearance of nose and ears normal, oral cavity grossly normal. NECK: JVD not raised; masses not palpable. HEART: First and second heart sounds are normal; no edema. LUNGS: Respiratory rate normal; clear to auscultation. ABDOMEN: Soft, mild tenderness, no guarding rigidity, liver spleen not palpable, no masses palpable. PSYCH: Alert and oriented x3; mood and affect normal. MUSCULOSKELETAL:No Clubbing/cyanosis;muscles-grossly intact NEUROLOGICAL: Right facial weakness, dysarthria, some weakness in right arm. 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 Follow Accu-Cheks with sliding scale. -GERD Protonix 40 mg a day -Hyperlipidemia Lipitor 40 mg daily at bedtime -Essential hypertension Norvasc 10 mg a day Cozaar 25 mg a day -Obstructive sleep apnea cannot uses CPAP -Peripheral neuropathy Neurontin 300 mg daily at bedtime -Anxiety depression Celexa 20 mg a day Care was discussed with the patient.. Hold oral hypoglycemic, Lasix. Ms. some tenderness liquid diet. IV fluids. Activity as tolerated. Thank you Dr. Brown Past Medical History Past Medical History: Chest Pain / Angina, CVA/TIA, Diabetes Mellitus, GERD/Reflux, Hyperlipidemia, Hypertension, Sleep Apnea/CPAP/BIPAP, Syncope Additional Past Medical History / Comment(s): hiatal hernia,Hx "CVA 06/14/20 with residual speech difficulties, right side facial drooping, ambulates slowly, gets confused occasionally." Recent "difficulty swallowing, getting worse, can't swallow water without choking,unable to swallow meds without applesauce." Neuropathy left foot. Cannot tolerate CPAP, varicose veins, hiatal hernia, constipation occasional bleeding with stools, hemorrhoids, hyperkalemia. History of Any Multi-Drug Resistant Organisms: MRSA Year Discovered:: November 2017 MDRO Source:: Abdomen at [facility] per Dr. Verdin Past Surgical History: Back Surgery, Cholecystectomy, Heart Catheterization, Hernia Repair Additional Past Surgical History / Comment(s): EGD,Right knee arthroscopy, bilateral cataracts, bilateral inguinal hernia repair, alban fundoplasty(stomach wrapped), loop monitor implant placed 06/14/20. Past Anesthesia/Blood Transfusion Reactions: No Reported Reaction Additional Past Anesthesia/Blood Transfusion Reaction / Comm: no hx blood transfusion Past Psychological History: Anxiety, Depression Additional Psychological History / Comment(s): Pt resides with his spouse. He is independent. has a glucometer and bp machine. Smoking Status: Never smoker Past Alcohol Use History: Rare Additional Past Alcohol Use History / Comment(s): Occasional beer. Past Drug Use History: None Reported - Past Family History Mother Family Medical History: Dementia Additional Family Medical History / Comment(s): HAD PACEMAKER, age 86. Father Family Medical History: Dementia Additional Family Medical History / Comment(s): Alzheimers. Medications and Allergies Home Medications Medication Instructions Recorded Confirmed Type Dicyclomine [Bentyl] 10 mg PO TID 01/22/19 07/10/21 History metFORMIN HCL [Glucophage] 500 mg PO BID 12/27/19 07/10/21 History Clopidogrel Bisulfate [Plavix] 75 mg PO DAILY 07/16/20 07/15/21 History Atorvastatin [Lipitor] 40 mg PO W/SUPPER 03/11/21 07/10/21 History Citalopram Hydrobromide 20 mg PO QAM 03/11/21 07/10/21 History [Citalopram HBr] Furosemide [Lasix] 20 mg PO TID 03/11/21 07/10/21 History Gabapentin [Neurontin] 300 mg PO HS 03/11/21 07/10/21 History Losartan [Cozaar] 25 mg PO QAM 03/11/21 07/10/21 History Omeprazole 20 mg PO HS PRN 03/11/21 07/10/21 History Pantoprazole [Protonix] 40 mg PO QAM 03/11/21 07/10/21 History amLODIPine [Norvasc] 10 mg PO QAM 03/11/21 07/10/21 History hydrALAZINE HCL 50 mg PO TID 03/11/21 07/10/21 History sitaGLIPtin PHOSPHATE [Januvia] 100 mg PO DAILY 03/11/21 07/10/21 History Allergies Allergy/AdvReac Type Severity Reaction Status Date / Time dipyridamole AdvReac Nausea & Verified 07/15/21 08:13 [From Persantine] Vomiting Iodinated Contrast Media AdvReac Nausea & Verified 07/15/21 08:13 [Iodinated Contrast Media - Vomiting IV Dye] morphine AdvReac Nausea & Verified 07/15/21 08:13 Vomiting Physical Exam Vitals: Vital Signs Temp Pulse Pulse Resp BP Pulse Ox 07/16/21 08:00 97.9 F 93 18 162/63 93 L 07/16/21 01:20 97.6 F 67 16 115/60 99 07/15/21 23:24 153/86 07/15/21 20:16 98.4 F 107 H 19 177/94 96 07/15/21 20:15 107 H 07/15/21 15:30 102 H 18 07/15/21 15:17 97.7 F 102 H 18 158/85 94 L 07/15/21 14:35 99 16 164/90 93 L 07/15/21 14:00 100 16 166/91 94 L 07/15/21 13:40 97 16 151/81 94 L 07/15/21 13:25 95 16 127/71 95 07/15/21 13:10 97 16 142/81 93 L 07/15/21 12:54 93 16 160/70 94 L 07/15/21 12:40 93 16 172/85 93 L 07/15/21 12:25 94 16 172/85 98 07/15/21 12:10 92 16 170/90 98 07/15/21 11:56 96.9 F L 86 16 181/78 98 Intake and Output 07/15/21 07/16/21 07/16/21 22:59 06:59 14:59 Intake Total 1425 400 Balance 1425 400 Intake: IV 650 Intake, IV Titration 375 Amount D5-0.45% NaCl with KCl 375 20Meq/l 1,000 ml @ 125 mls/hr IV .Q8H [facility] Rx#: [id number] Oral 400 400 Other: Voiding Method Urinal # Voids 4 # Bowel Movements 0 Weight 86.7 kg Results CBC & Chem 7: 07/16/21 10:26 07/16/21 10:26 Labs: Abnormal Lab Results - Last 24 Hours (Table) 07/15/21 07/15/21 07/16/21 Range/Units 12:25 21:06 07:47 WBC (3.8-10.6) k/uL RBC (4.30-5.90) m/uL Hgb (13.0-17.5) gm/dL Hct (39.0-53.0) % Neutrophils # (1.3-7.7) k/uL POC Glucose (mg/dL) 217 H 314 H 172 H (75-99) mg/dL 07/16/21 Range/Units 10:26 WBC 13.0 H (3.8-10.6) k/uL RBC 3.71 L (4.30-5.90) m/uL Hgb 12.3 L (13.0-17.5) gm/dL Hct 36.7 L (39.0-53.0) % Neutrophils # 9.6 H (1.3-7.7) k/uL POC Glucose (mg/dL) (75-99) mg/dL
[2021-07-16 20:23] LABS: Glucose,Whole Blood 251 mg/dL (75-99)
[2021-07-16] MEDS ORDERED: GABAPENTIN 300 MG CAP PO SCH (21:00)
[2021-07-17] MEDS: DEXAMETHASONE SOD PHOSPHATE 4 MG/ML 1 ML VIAL IVP SCH ×3 (00:24→12:12)
[2021-07-17] MEDS: METOCLOPRAMIDE 5 MG/ML 2 ML VIAL IVP SCH ×3 (00:24→12:13)
[2021-07-17] MEDS: KETOROLAC 30 MG/ML 1 ML VIAL IVP SCH ×2 (04:27→09:57)
[2021-07-17] MEDS: D5-0.45% NACL WITH KCL 20MEQ/L 1,000 ML IV SCH (05:39)
[2021-07-17] MEDS: LACTATED RINGERS 1,000 ML IV SCH (07:23)
[2021-07-17 07:51] LABS: Glucose,Whole Blood 262 mg/dL (75-99)
[2021-07-17] MEDS: INSULIN ASPART (NovoLOG) 100 UNIT/ML VIAL SQ SCH ×2 (08:07→12:13)
[2021-07-17] MEDS: CITALOPRAM HYDROBROMIDE 20 MG TAB PO SCH (08:08)
[2021-07-17] MEDS: FUROSEMIDE 20 MG TAB PO SCH (08:08)
[2021-07-17] MEDS: hydrALAZINE HCL 50 MG TAB PO SCH (08:08)
[2021-07-17] MEDS: amLODIPine 10 MG TAB PO SCH (08:09)
[2021-07-17] MEDS: LOSARTAN 25 MG TAB PO SCH (08:09)
[2021-07-17] MEDS: SIMETHICONE 40 MG/0.6 ML DROPS 2,000 MG/30 ML BOTTLE PO SCH (08:10)
[2021-07-17] MEDS: PANTOPRAZOLE 40 MG TABLET PO SCH (08:17)
[2021-07-17 08:42] LABS: Basophils % (A) 0 %; Eosinophils # (A) 0.1 k/uL (0-0.7); Eosinophils % (A) 1 %; HCT 40.3 % (39.0-53.0); HGB 13.2 gm/dL (13.0-17.5); Lymphocytes % (A) 10 %; MCH 32.7 pg (25.0-35.0); MCHC 32.7 g/dL (31.0-37.0); MCV 100.1 fL (80.0-100.0); Mean Platelet Volume 9.6; Monocytes # (A) 0.2 k/uL (0-1.0); Monocytes % (A) 2 %; Neutrophils # (A) 8.7 k/uL (1.3-7.7); Neutrophils % (A) 87 %; Platelet Count 195 k/uL (150-450); RBC 4.02 m/uL (4.30-5.90); RDW 12.5 % (11.5-15.5)
[2021-07-17 08:56] LABS: African American GFR (CKD) >90 (>60 ml/min/1.73 sqM); Anion Gap 10 mmol/L; Blood Urea Nitrogen 10 mg/dL (9-20); Calcium 8.8 mg/dL (8.4-10.2); Carbon Dioxide 24 mmol/L (22-30); Chloride 99 mmol/L (98-107); Glucose 340 mg/dL (74-99); Magnesium 1.8 mg/dL (1.6-2.3); Non-African American GFR(CKD) 86 (>60 ml/min/1.73 sqM); Potassium 4.4 mmol/L (3.5-5.1); Sodium 133 mmol/L (137-145)
[2021-07-17] MEDS ORDERED: ENOXAPARIN 40 MG/0.4 ML SYRINGE SQ SCH (09:00)
[2021-07-17 09:59] VITALS: BP 174/94; PULSE 75; RESP 16; TEMP 97.9
--- NOTE | 2021-07-17 11:15 | P.DS ---
Providers Date of admission: 07/16/21 11:23 Expected date of discharge: 07/17/21 Attending physician: Lemuel Brown Consults: 07/15/21 11:58 Consult Physician Routine Consulting Provider: Hawk Gaona Consult Reason/Comments: Medical management Do you want consulting provider notified?: Yes Primary care physician: Hawk Gaona [facility] Course: Discharge diagnosis 1. Paraesophageal hernia Status post laparoscopic repair of paraesophageal hernia with mesh 2. Hypomagnesemia 3. Hypokalemia 4. Hypertension followed by medicine service Hospital course This is a 70-year-old male who has developed a paraesophageal hernia. Patient is status post laparoscopic repair of paraesophageal hernia with mesh. Upper GI shows mild delay with esophagogastric transit. Patient was given Decadron and antinausea medications. Patient is tolerating diet. His nausea and vomiting has resolved. He is having flatus. His abdominal pain has improved. He is up ambulating. Afebrile. Magnesium and potassium were replaced. He is stable for discharge. Please refer to chart for any further details. 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 Signing provider agrees with the documented findings, assessment, and plan of care. Patient Condition at Discharge: Stable Plan - Discharge Summary Discharge Rx Participant: Yes New Discharge Prescriptions: New Docusate [Colace] 100 mg PO BID #30 capsule HYDROcodone/APAP 5-325MG [Vega 5-325] 1 tab PO Q6HR PRN 3 Days #12 tab PRN Reason: Pain No Action Dicyclomine [Bentyl] 10 mg PO TID metFORMIN HCL [Glucophage] 500 mg PO BID Clopidogrel Bisulfate [Plavix] 75 mg PO DAILY amLODIPine [Norvasc] 10 mg PO QAM Atorvastatin [Lipitor] 40 mg PO W/SUPPER hydrALAZINE HCL 50 mg PO TID sitaGLIPtin PHOSPHATE [Januvia] 100 mg PO DAILY Losartan [Cozaar] 25 mg PO QAM Omeprazole 20 mg PO HS PRN PRN Reason: gerd Gabapentin [Neurontin] 300 mg PO HS Furosemide [Lasix] 20 mg PO TID Citalopram Hydrobromide [Citalopram HBr] 20 mg PO QAM Pantoprazole [Protonix] 40 mg PO QAM Discharge Medication List Dicyclomine [Bentyl] 10 mg PO TID 08/19/19 [History] metFORMIN HCL [Glucophage] 500 mg PO BID 12/27/19 [History] Clopidogrel Bisulfate [Plavix] 75 mg PO DAILY 07/16/20 [History] Atorvastatin [Lipitor] 40 mg PO W/SUPPER 03/11/21 [History] Citalopram Hydrobromide [Citalopram HBr] 20 mg PO QAM 03/11/21 [History] Furosemide [Lasix] 20 mg PO TID 03/11/21 [History] Gabapentin [Neurontin] 300 mg PO HS 03/11/21 [History] Losartan [Cozaar] 25 mg PO QAM 03/11/21 [History] Omeprazole 20 mg PO HS PRN 03/11/21 [History] Pantoprazole [Protonix] 40 mg PO QAM 03/11/21 [History] amLODIPine [Norvasc] 10 mg PO QAM 03/11/21 [History] hydrALAZINE HCL 50 mg PO TID 03/11/21 [History] sitaGLIPtin PHOSPHATE [Januvia] 100 mg PO DAILY 03/11/21 [History] Docusate [Colace] 100 mg PO BID #30 capsule 07/17/21 [Rx] HYDROcodone/APAP 5-325MG [Vega 5-325] 1 tab PO Q6HR PRN 3 Days #12 tab 07/17/21 [Rx] Follow up Appointment(s)/Referral(s): Lemuel Brown MD [STAFF PHYSICIAN] - 1 Week Activity/Diet/Wound Care/Special Instructions: Medicine service to complete discharge med rec No driving while taking Vega No lifting over 10 pounds You may shower. No soaking or tub baths for 2 weeks Very light activity until you are reevaluated at your follow up appointment with your surgeon No straws or carbonated beverages Discharge Disposition: HOME SELF-CARE
[2021-07-17] MEDS ORDERED: ACETAMINOPHEN TAB 500 MG TAB PO PRN (11:44)
[2021-07-17 12:00] LABS: Glucose,Whole Blood 250 mg/dL (75-99)
[2021-07-17] MEDS ORDERED: LORATADINE-PSEUDOEPH 5-120 MG 1 EACH TAB.ER.12H PO PRN (12:03)
--- NOTE | 2021-07-17 23:21 | P.PN ---
Progress Note - Text Progress Note Date: 07/17/21 - Chief Complaint Abdominal surgery This is a 70-year-old patient, follows with Dr. Hawk Gaona. Patient is undergoing laparoscopic repair of paraesophageal hernia with mesh. Yesterday. Chronic stable medical conditions include diabetes, GERD, hypertension, hyperli pidemia, obstructive sleep apnea, stroke in June 2020 resulted with some dysarthria, right-sided facial weakness, some weakness on the right arm. Patient also some difficulty swallowing. Neuropathy of the lower extremity. Hemorrhoids. Patient is on undescended clear liquid diet. Some discomfort of the abdominal site. Laying in bed. Awake. July 17: Doing well. No abdominal pain. Tolerating prescribed diet. Told the patient to follow his Accu-Cheks at home. Given a prescription for glucose strips. Questions answered. Current medications reviewed Past medical history to include: Diabetes, GERD, hyperlipidemia, hypertension, stroke in 2020 with dysarthria, right face weakness, some right arm weakness dysphagia neuropathy patient cannot tolerate CPAP varicose veins hemorrhoids Social history: Lives with his . No smoking. Alcohol rarely Family history: Dementia, pacemaker Physical examination: VITAL SIGNS: 97.9, 75, 16, 163 with 92, 94% room air GENERAL: Laying in bed, awake, comfortable EYES: Pupils equal. Conjunctiva normal. HEENT: External appearance of nose and ears normal, oral cavity grossly normal. NECK: JVD not raised; masses not palpable. HEART: First and second heart sounds are normal; no edema. LUNGS: Respiratory rate normal; clear to auscultation. ABDOMEN: Soft, mild tenderness, no guarding rigidity, liver spleen not palpable, no masses palpable. PSYCH: Alert and oriented x3; mood and affect normal. MUSCULOSKELETAL:No Clubbing/cyanosis;muscles-grossly intact NEUROLOGICAL: Right facial weakness, dysarthria, some weakness in right arm. INVESTIGATIONS, reviewed in the clinical context: July 17: White count 10 years globin 13.2 potassium 4.4 creatinine 0.9 Accu- Cheks 250 White count 13 hemoglobin 12.3 sodium 134 potassium 3.3 creatinine 0.9 to Assessment and plan: -Laparoscopic repair of paraesophageal hernia with a bio mesh Ben clear liquid diet -Right-sided paresis, with dysarthria, dysphagia from a prior stroke -Diabetes mellitus type 2, oral hypoglycemic Resume oral hypoglycemic. Follow Accu-Cheks -GERD Protonix 40 mg a day -Hyperlipidemia Lipitor 40 mg daily at bedtime -Essential hypertension Norvasc 10 mg a day Cozaar 25 mg a day -Obstructive sleep apnea cannot uses CPAP -Peripheral neuropathy Neurontin 300 mg daily at bedtime -Anxiety depression Celexa 20 mg a day Care was discussed with the patient. Medications reviewed. Thank you Dr. Brown
== END 2021-07-17 14:59 | disposition home or self-care (01) ==
LOC: OR 07:40 → 4SSUR 14:49 → OR 07-16 11:12 → 4SSUR 07-16 11:23
PROVIDERS: ADMIT Surgery; ATTEND Surgery
DX: K44.9 Diaphragmatic hernia without obstruction or gangrene (principal); E83.42 Hypomagnesemia; E87.6 Hypokalemia; I10 Essential (primary) hypertension; E78.5 Hyperlipidemia, unspecified; K21.9 Gastro-esophageal reflux disease without esophagitis; E11.41 Type 2 diabetes mellitus with diabetic mononeuropathy; I69.351 Hemiplegia and hemiparesis following cerebral infarction affecting right dominant side; I69.322 Dysarthria following cerebral infarction; R53.1 Weakness; G47.33 Obstructive sleep apnea (adult) (pediatric); Z20.822 Contact with and (suspected) exposure to COVID-19; I83.90 Asymptomatic varicose veins of unspecified lower extremity; K64.9 Unspecified hemorrhoids; F41.9 Anxiety disorder, unspecified; F32.A Depression, unspecified; Z79.02 Long term (current) use of antithrombotics/antiplatelets; Z79.84 Long term (current) use of oral hypoglycemic drugs; Z79.899 Other long term (current) drug therapy; Z88.5 Allergy status to narcotic agent; Z91.048 Other nonmedicinal substance allergy status; Z88.8 Allergy status to other drugs, medicaments and biological substances; Z98.41 Cataract extraction status, right eye; Z98.42 Cataract extraction status, left eye; Z96.1 Presence of intraocular lens; Z86.14 Personal history of Methicillin resistant Staphylococcus aureus infection; Z90.49 Acquired absence of other specified parts of digestive tract; Z95.818 Presence of other cardiac implants and grafts; Z82.0 Family history of epilepsy and other diseases of the nervous system; Z82.49 Family history of ischemic heart disease and other diseases of the circulatory system
CPT/HCPCS: 43282; 86900; 86901; 80048 ×2; 83735 ×2; 85025 ×2; 86850; 87635; 74210; 36415; G0378 ×2; C1781; J1100 ×3; J2765 ×3; J0690; J2405 ×2; J1650 ×2; J1885 ×2; J1170 ×3; J3475; J3480; J0131; Q9967; J1644

== ENCOUNTER → 2021-11-16 | Outpatient (CLI) | payer MEDICARE, OTHER ==
--- NOTE | 2021-11-16 12:44 | FL ---
ESOPHOGRAM. HISTORY: Dysphagia Esophagram was performed per the single contrast technique. The patient swallowed barium without dif ficulty or delay. Esophageal peristalsis and motility appear to be within normal limits. There is no evidence for filling defect, mass or diverticulum. No hiatal hernia seen. Subsequently single contrast cervical esophagram was performed which fails demonstrate evidence for a spiration penetration or mass. IMPRESSION: Unremarkable study.
== END | disposition home or self-care (01) ==
LOC: RADUSWWP 10:07
PROVIDERS: ATTEND Family Medicine
DX: R13.10 Dysphagia, unspecified (principal)
CPT/HCPCS: 74220

== ENCOUNTER 2022-09-05 14:16 | Emergency (ER) | payer MEDICARE, OTHER ==
[2022-09-05 14:21] VITALS: BP 157/91; PULSE 104; RESP 16; TEMP 98.1
--- NOTE | 2022-09-05 14:46 | ED ---
General Adult HPI - General Chief complaint: Fall Stated complaint: Fall,L Arm Injury,Sent by PCP Time Seen by Provider: 09/05/22 14:32 Source: patient, family, RN notes reviewed Mode of arrival: ambulatory Limitations: no limitations - History of Present Illness Initial comments: 71-year-old male presents to the emergency department for a fall that he sustained 10 days ago. States that he went to see his primary care doctor and pcp wanted him to obtain x-rays. Patient does not recall the mechanism of the fall. He states that he did not lose consciousness or hit his head. He reports that the only injury that occurred was to his left arm which has large area of contusion. Patient is on Plavix and aspirin. Denies neck pain, back pain. - Related Data Home Medications Medication Instructions Recorded Confirmed metFORMIN HCL [Glucophage] 500 mg PO BID 12/27/19 07/10/21 Clopidogrel Bisulfate [Plavix] 75 mg PO DAILY 07/16/20 07/15/21 Atorvastatin [Lipitor] 40 mg PO W/SUPPER 03/11/21 07/10/21 Citalopram Hydrobromide 20 mg PO QAM 03/11/21 07/10/21 [Citalopram HBr] Gabapentin [Neurontin] 300 mg PO HS 03/11/21 07/10/21 Losartan [Cozaar] 25 mg PO QAM 03/11/21 07/10/21 Omeprazole 20 mg PO HS PRN 03/11/21 07/10/21 Pantoprazole [Protonix] 40 mg PO QAM 03/11/21 07/10/21 amLODIPine [Norvasc] 10 mg PO QAM 03/11/21 07/10/21 hydrALAZINE HCL 50 mg PO TID 03/11/21 07/10/21 sitaGLIPtin PHOSPHATE [Januvia] 100 mg PO DAILY 03/11/21 07/10/21 Previous Rx's Medication Instructions Recorded Docusate [Colace] 100 mg PO BID #30 capsule 07/17/21 Furosemide [Lasix] 20 mg PO BID #0 07/17/21 HYDROcodone/APAP 5-325MG [Galena 1 tab PO Q6HR PRN 3 Days #12 tab 07/17/21 5-325] Loratadine-Pseudoeph 5-120 mg 1 each PO Q12HR PRN #10 tablet 07/17/21 [Claritin-D 12 Hour] Allergies Allergy/AdvReac Type Severity Reaction Status Date / Time dipyridamole AdvReac Nausea & Verified 09/05/22 14:18 [From Persantine] Vomiting Iodinated Contrast Media AdvReac Nausea & Verified 09/05/22 14:18 [Iodinated Contrast Media - Vomiting IV Dye] morphine AdvReac Nausea & Verified 09/05/22 14:18 Vomiting Review of Systems ROS Statement: Those systems with pertinent positive or pertinent negative responses have been documented in the HPI. ROS Other: All systems not noted in ROS Statement are negative. Past Medical History Past Medical History: Chest Pain / Angina, CVA/TIA, Diabetes Mellitus, GERD/Reflux, Hyperlipidemia, Hypertension, Sleep Apnea/CPAP/BIPAP, Syncope Additional Past Medical History / Comment(s): hiatal hernia,Hx "CVA 06/14/20 with residual speech difficulties, right side facial drooping, ambulates slowly, gets confused occasionally." Recent "difficulty swallowing, getting worse, can't swallow water without choking,unable to swallow meds without applesauce." Neuropathy left foot. Cannot tolerate CPAP, varicose veins, hiatal hernia, constipation occasional bleeding with stools, hemorrhoids, hyperkalemia. History of Any Multi-Drug Resistant Organisms: MRSA Date of last positivie culture/infection: November 2017 MDRO Source:: Abdomen at [facility] per Dr. Verdin Past Surgical History: Back Surgery, Cholecystectomy, Heart Catheterization, Hernia Repair Additional Past Surgical History / Comment(s): EGD,Right knee arthroscopy, bilateral cataracts, bilateral inguinal hernia repair, alban fundoplasty(stomach wrapped), loop monitor implant placed 06/14/20. Past Anesthesia/Blood Transfusion Reactions: No Reported Reaction Additional Past Anesthesia/Blood Transfusion Reaction / Comment(s): no hx blood transfusion Past Psychological History: Anxiety, Depression Smoking Status: Never smoker Past Alcohol Use History: Rare Past Drug Use History: None Reported - Past Family History Mother Family Medical History: Dementia Additional Family Medical History / Comment(s): HAD PACEMAKER, age 86. Father Family Medical History: Dementia Additional Family Medical History / Comment(s): Alzheimers. General Exam Limitations: no limitations, language barrier (patient has hx of stroke with verbal impairment ) General appearance: alert, in no apparent distress Head exam: Present: atraumatic, normocephalic, normal inspection Eye exam: Present: normal appearance, PERRL, EOMI. Absent: scleral icterus, conjunctival injection, periorbital swelling ENT exam: Present: normal exam, mucous membranes moist Neck exam: Present: normal inspection. Absent: tenderness, meningismus, lymphadenopathy Respiratory exam: Present: normal lung sounds bilaterally. Absent: respiratory distress, wheezes, rales, rhonchi, stridor Cardiovascular Exam: Present: regular rate, normal rhythm, normal heart sounds. Absent: systolic murmur, diastolic murmur, rubs, gallop, clicks Extremities exam: Present: tenderness (left upper extremity ttp ), normal capillary refill, other (large contussion of left arm ). Absent: full ROM (limited ROM of left UE ), pedal edema, joint swelling, calf tenderness Back exam: Present: normal inspection Neurological exam: Present: alert, oriented X3, CN II-XII intact Skin exam: Present: warm, dry, intact, normal color. Absent: rash Course Vital Signs 09/05/22 14:18 Temperature 98.1 F Pulse Rate 104 H Respiratory 16 Rate Blood Pressure 157/91 O2 Sat by Pulse 98 Oximetry Medical Decision Making - Medical Decision Making Was pt. sent in by a medical professional or institution ([facility], BED MAKER, urgent care, hospital, or [facility]...) When possible be specific @ -[No] Did you speak to anyone other than the patient for history (EMS, parent, family, police, friend...)? What history was obtained from this source @ -[No] Did you review nursing and triage notes (agree or disagree)? Why? @ -[I reviewed and agree with nursing and triage notes] Were old charts reviewed (outside hosp., previous admission, EMS record, old EKG, old radiological studies, urgent care reports/EKG's, [facility] records)? Report findings @ -[No old charts were reviewed] Differential Diagnosis (chest pain, altered mental status, abdominal pain women, abdominal pain men, vaginal bleeding, weakness, fever, dyspnea, syncope, headache, dizziness, GI bleed, back pain, seizure, CVA, palpatations, mental health, musculoskeletal)? @ -Fracture, contusion, sprain, dislocation, this list is not all-inclusive EKG interpreted by me (3pts min.). @ -None X-rays interpreted by me (1pt min.). @ -X-ray left shoulder, x-ray left elbow CT interpreted by me (1pt min.). @ -[None done] U/S interpreted by me (1pt. min.). @ -[None done] What testing was considered but not performed or refused? (CT, X-rays, U/S, labs)? Why? @ -[None] What meds were considered but not given or refused? Why? @ -[None] Did you discuss the management of the patient with other professionals (professionals i.e. DrDouglas, PA, BED MAKER, lab, RT, psych nurse, social service technician, home care associate, teacher, chief clinical officer, medical case worker)? Give summary @ -[No] Was smoking cessation discussed for >3mins.? @ -[No] Was critical care preformed (if so, how long)? @ -[No] Were there social determinants of health that impacted care today? How? (Homelessness, low income, unemployed, alcoholism, drug addiction, transportation, low edu. Level, literacy, decrease access to med. care, residential, rehab)? @ -[No] Was there de-escalation of care discussed even if they declined (Discuss DNR or withdrawal of care, Hospice)? DNR status @ -[No] What co-morbidities impacted this encounter? (DM, HTN, Smoking, COPD, CAD, Cancer, CVA, ARF, Chemo, Hep., AIDS, mental health diagnosis, sleep apnea, morbid obesity)? @ -[None] Was patient admitted / discharged? Hospital course, mention meds given and route, prescriptions, significant lab abnormalities, going to OR and other pertinent info. @ -Discharged. Patient presented after a fall 10 days ago. He has contusion to the left arm. X-ray shoulder and elbow show no acute fracture. administered Galena for pain control. Patient discharged home in stable condition. Undiagnosed new problem with uncertain prognosis? @ -[No] Drug Therapy requiring intensive monitoring for toxicity (Heparin, Nitro, Insulin, Cardizem)? @ -[No] Were any procedures done? @ -[No] Diagnosis/symptom? @ -[Left arm Contusion Acute, or Chronic, or Acute on Chronic? @ -Acute Uncomplicated (without systemic symptoms) or Complicated (systemic symptoms)? @ -Uncomplicated Side effects of treatment? @ -[No] Exacerbation, Progression, or Severe Exacerbation? @ -[No] Poses a threat to life or bodily function? How? (Chest pain, [place], [place], pneumonia, PE, COPD, DKA, ARF, appy, cholecystitis, CVA, Diverticulitis, Homicidal, Suicidal, threat to staff... and all critical care pts) @ -[No] - Radiology Data Radiology results: report reviewed, image reviewed Disposition Clinical Impression: Fall, Contusion of arm, left Disposition: HOME SELF-CARE Condition: Stable Instructions (If sedation given, give patient instructions): Fall Prevention f or Older Adults (ED) Additional Instructions: Please return to the Emergency Department if symptoms worsen or any other concerns. Is patient prescribed a controlled substance at d/c from ED?: No Referrals: Hawk Gaona MD [Primary Care Provider] - 1-2 days Time of Disposition: 16:15
--- NOTE | 2022-09-05 15:20 | XR ---
Left shoulder. HISTORY: Pain following trauma. COMPARISON: None. TECHNIQUE: 3 views left shoulder were obtained. There is no acute fracture or dislocation. There is mild degenerative changes of the acromioclavicula r joint and glenohumeral joint. There is mild superior subluxation of the humeral head consistent wit h a chronic rotator cuff tear. IMPRESSION: 1. No evidence of acute trauma. 2. Chronic rotator cuff tear suspected. 3. Mild degenerative change of the AC joint and glenohumeral joint.
[2022-09-05] MEDS ORDERED: HYDROcodone/APAP 5-325MG 1 EACH TAB PO STA (15:22)
--- NOTE | 2022-09-05 15:22 | XR ---
Left elbow. HISTORY: Pain, trauma. Comparison. TECHNIQUE: 3 views left elbow were obtained. There is no acute fracture or dislocation or focal intraosseous abnormality. There is moderate to mar ked degenerative osteoarthritic change of the radial humeral articulation with marked joint space mable rowing and hypertrophic spurring. There are mild degenerative changes the humeral articulation.. IMPRESSION: 1. No acute fracture or dislocation. 2. Osteoarthritic changes as described above.
== END 2022-09-05 16:31 | disposition home or self-care (01) ==
LOC: EC 14:16
DX: S40.022A Contusion of left upper arm, initial encounter (principal); E11.36 Type 2 diabetes mellitus with diabetic cataract; E11.40 Type 2 diabetes mellitus with diabetic neuropathy, unspecified; I10 Essential (primary) hypertension; E78.5 Hyperlipidemia, unspecified; K21.9 Gastro-esophageal reflux disease without esophagitis; F32.A Depression, unspecified; F41.9 Anxiety disorder, unspecified; Z79.82 Long term (current) use of aspirin; Z79.84 Long term (current) use of oral hypoglycemic drugs; Z79.02 Long term (current) use of antithrombotics/antiplatelets; Z79.899 Other long term (current) drug therapy; Z86.73 Personal history of transient ischemic attack (TIA), and cerebral infarction without residual deficits; Z88.5 Allergy status to narcotic agent; Z90.49 Acquired absence of other specified parts of digestive tract; Z91.041 Radiographic dye allergy status; W19.XXXA Unspecified fall, initial encounter
CPT/HCPCS: 99284

== ENCOUNTER 2022-12-30 04:20 | Emergency (ER) | payer MEDICARE, OTHER ==
[2022-12-30 04:29] VITALS: TEMP 98.3
[2022-12-30] MEDS ORDERED: HYDROmorphone 1 MG/ML 1 ML SYRINGE IM STA (04:44)
--- NOTE | 2022-12-30 05:05 | ED ---
Neck Injury/Pain HPI - General Source: RN notes reviewed, old records reviewed Mode of arrival: ambulatory - History of Present Illness MD Complaint: neck pain, neck injury -: days(s) Place: home Radiation: right lateral, left lateral Severity: moderate Severity scale (1-10): 2 Quality: sharp Consistency: constant Improves With: none Worsens With: movement of neck Context: fall Associated Symptoms: none Treatments Prior to Arrival: none <Lavell Mckeon - Last Filed: 12/30/22 05:03> <Marcelo Khan - Last Filed: 12/30/22 10:55> - General Chief Complaint: Neck Pain/Injury Stated Complaint: Neck Pain Time Seen by Provider: 12/30/22 04:23 - History of Present Illness Initial Comments: This is a 72-year-old male to the ER for evaluation. Patient presents today for evaluation of neck pain family does believe patient had a recent fall maybe a few days ago but has had neck pain for the last 2 days worsening and severe today. No numbness or tingling down the arms. Patient denies headache. (Lavell Mckeon) - Related Data Home Medications Medication Instructions Recorded Confirmed metFORMIN HCL [Glucophage] 500 mg PO BID 12/27/19 07/10/21 Clopidogrel Bisulfate [Plavix] 75 mg PO DAILY 07/16/20 07/15/21 Atorvastatin [Lipitor] 40 mg PO W/SUPPER 03/11/21 07/10/21 Citalopram Hydrobromide 20 mg PO QAM 03/11/21 07/10/21 [Citalopram HBr] Gabapentin [Neurontin] 300 mg PO HS 03/11/21 07/10/21 Losartan [Cozaar] 25 mg PO QAM 03/11/21 07/10/21 Omeprazole 20 mg PO HS PRN 03/11/21 07/10/21 Pantoprazole [Protonix] 40 mg PO QAM 03/11/21 07/10/21 amLODIPine [Norvasc] 10 mg PO QAM 03/11/21 07/10/21 hydrALAZINE HCL 50 mg PO TID 03/11/21 07/10/21 sitaGLIPtin PHOSPHATE [Januvia] 100 mg PO DAILY 03/11/21 07/10/21 Previous Rx's Medication Instructions Recorded Docusate [Colace] 100 mg PO BID #30 capsule 07/17/21 Furosemide [Lasix] 20 mg PO BID #0 07/17/21 HYDROcodone/APAP 5-325MG [[place] 1 tab PO Q6HR PRN 3 Days #12 tab 07/17/21 5-325] Loratadine-Pseudoeph 5-120 mg 1 each PO Q12HR PRN #10 tablet 07/17/21 [Claritin-D 12 Hour] Lidocaine 5% Patch [Lidoderm 5% 1 patch TOPICAL DAILY PRN 14 Days 12/30/22 Patch] #14 patch Allergies Allergy/AdvReac Type Severity Reaction Status Date / Time dipyridamole AdvReac Nausea & Verified 12/30/22 04:29 [From Persantine] Vomiting Iodinated Contrast Media AdvReac Nausea & Verified 12/30/22 04:29 [Iodinated Contrast Media - Vomiting IV Dye] morphine AdvReac Nausea & Verified 12/30/22 04:29 Vomiting Review of Systems ROS Other: All systems not noted in ROS Statement are negative. <Lavell Mckeon - Last Filed: 12/30/22 05:03> ROS Other: All systems not noted in ROS Statement are negative. <Marcelo Khan - Last Filed: 12/30/22 10:55> ROS Statement: Those systems with pertinent positive or pertinent negative responses have been documented in the HPI. Past Medical History Past Medical History: Chest Pain / Angina, CVA/TIA, Diabetes Mellitus, GERD/Reflux, Hyperlipidemia, Hypertension, Sleep Apnea/CPAP/BIPAP, Syncope Additional Past Medical History / Comment(s): hiatal hernia,Hx "CVA 06/14/20 with residual speech difficulties, right side facial drooping, ambulates slowly, gets confused occasionally." Recent "difficulty swallowing, getting worse, can't swallow water without choking,unable to swallow meds without applesauce." Neuropathy left foot. Cannot tolerate CPAP, varicose veins, hiatal hernia, constipation occasional bleeding with stools, hemorrhoids, hyperkalemia. History of Any Multi-Drug Resistant Organisms: MRSA Date of last positivie culture/infection: November 2017 MDRO Source:: Abdomen at [facility] per Dr. Verdin Past Surgical History: Back Surgery, Cholecystectomy, Heart Catheterization, Hernia Repair Additional Past Surgical History / Comment(s): EGD,Right knee arthroscopy, bilateral cataracts, bilateral inguinal hernia repair, alban fundoplasty(stomach wrapped), loop monitor implant placed 06/14/20. Past Anesthesia/Blood Transfusion Reactions: No Reported Reaction Additional Past Anesthesia/Blood Transfusion Reaction / Comment(s): no hx blood transfusion Past Psychological History: Anxiety, Depression Smoking Status: Never smoker Past Alcohol Use History: Rare Past Drug Use History: None Reported - Past Family History Mother Family Medical History: Dementia Additional Family Medical History / Comment(s): HAD PACEMAKER, age 86. Father Family Medical History: Dementia Additional Family Medical History / Comment(s): Alzheimers. <Lavell Mckeon - Last Filed: 12/30/22 05:03> General Exam General appearance: alert, in no apparent distress Head exam: Present: atraumatic, normocephalic, normal inspection Eye exam: Present: normal appearance, PERRL, EOMI. Absent: scleral icterus, conjunctival injection, periorbital swelling ENT exam: Present: normal exam, mucous membranes moist Neck exam: Present: normal inspection. Absent: tenderness, meningismus, lymphadenopathy Respiratory exam: Present: normal lung sounds bilaterally. Absent: respiratory distress, wheezes, rales, rhonchi, stridor Cardiovascular Exam: Present: regular rate, normal rhythm, normal heart sounds. Absent: systolic murmur, diastolic murmur, rubs, gallop, clicks GI/Abdominal exam: Present: soft, normal bowel sounds. Absent: distended, tenderness, guarding, rebound, rigid Extremities exam: Present: normal inspection, full ROM, normal capillary refill. Absent: tenderness, pedal edema, joint swelling, calf tenderness Back exam: Present: normal inspection Neurological exam: Present: alert, oriented X3, CN II-XII intact Psychiatric exam: Present: normal affect, normal mood Skin exam: Present: warm, dry, intact, normal color. Absent: rash <Lavell Mckeon - Last Filed: 12/30/22 05:03> Course <Lavell Mckeon - Last Filed: 12/30/22 05:03> Vital Signs 12/30/22 12/30/22 04:25 07:26 Temperature 98.3 F Pulse Rate 83 60 Respiratory 16 17 Rate Blood Pressure 104/67 176/97 O2 Sat by Pulse 96 95 Oximetry - Reevaluation(s) Reevaluation #1: 12/30/22 05:03 Medical record is reviewed (Lavell Mckeon) Reevaluation #2: 12/30/22 05:03 Patient symptoms are improved (Lavell Mckeon) Reevaluation #3: 12/30/22 05:04 Patient informed of results and questions answered (Lavell Mckeon) Reevaluation #4: 12/30/22 05:04 Was pt. sent in by a medical professional or institution ([facility], [employer], urgent care, hospital, or half-way...) When possible be specific @ -no Did you speak to anyone other than the patient for history (EMS, parent, family, police, friend...)? What history was obtained from this source @ -no Did you review nursing and triage notes (agree or disagree)? Why? @ -agree Are old charts reviewed (outside hosp., previous admission, EMS record, old EKG, old radiological studies, urgent care reports/EKG's, half-way records)? Report findings @ -yes Differential Diagnosis (chest pain, altered mental status, abdominal pain women, abdominal pain men, vaginal bleeding, weakness, fever, dyspnea, syncope, headache, dizziness, GI bleed, back pain, seizure, CVA, palpatations, mental health, musculoskeletal)? @ -prior EKG interpreted by me (3pts min.). @ -yes X-rays interpreted by me (1pt min.). @ -yes CT interpreted by me (1pt min.). @ -no U/S interpreted by me (1pt. min.). @ -no What testing was considered but not performed or refused? (CT, X-rays, U/S, labs)? Why? @ -none What meds were considered but not given or refused? Why? @ -none Did you discuss the management of the patient with other professionals (professionals i.e. [facility] Hand, W[employer]CKER DRIVER, lab, RT, psych nurse, social media coordinator, medical records coordinator, teacher, hydrological technical officer, case management coordinator)? Give summary @ -no Was smoking cessation discussed for >3mins.? @ -no Was critical care preformed (if so, how long)? @ -no Were there social determinants of health that impacted care today? How? (Homelessness, low income, unemployed, alcoholism, drug addiction, transportation, low edu. Level, literacy, decrease access to med. care, custodial, rehab)? @ -none Was there de-escalation of care discussed even if they declined (Discuss DNR or withdrawal of care, Hospice)? DNR status @ -no What co-morbidities impacted this encounter? (DM, HTN, Smoking, COPD, CAD, Cancer, CVA, ARF, Chemo, Hep., AIDS, mental health diagnosis, sleep apnea, morbid obesity)? @ -none Was patient admitted / discharged? Hospital course, mention meds given and route, prescriptions, significant lab abnormalities, going to OR and other pertinent info. @ - Undiagnosed new problem with uncertain prognosis? @ -no Drug Therapy requiring intensive monitoring for toxicity (Heparin, Nitro, Insulin, Cardizem)? @ -no Were any procedures done? @ -no Diagnosis/symptom? @ - Acute, or Chronic, or Acute on Chronic? @ -Acute Uncomplicated (without systemic symptoms) or Complicated (systemic symptoms)? @ -Complicated Side effects of treatment? @ -no Exacerbation, Progression, or Severe Exacerbation? @ -exacerbation Poses a threat to life or bodily function? How? (Chest pain, [place], [place], pneumonia, PE, COPD, DKA, ARF, appy, cholecystitis, CVA, Diverticulitis, Homicidal, Suicidal, threat to staff... and all critical care pts) @ -yes (Lavell Mckeon) Medical Decision Making <Marcelo Khan - Last Filed: 12/30/22 10:55> - Medical Decision Making Patient signed out to me pending results of CT imaging. Concern for possible injury or fall. History of stroke. Patient was symptomatically treated with pain medications. CT obtained by prior physician. I agree with his workup. CT imaging is interpreted by myself reveals no evidence of acute intracranial process or acute cervical spine injury. Patient does have what appears to be chronic degenerative changes in the cervical spine. Chronic findings seen in the brain. I discussed this with the patient. I discussed this with his as well. They expressed understanding. I will provide follow-up information with Dr. Vik sutton who is on-call for spine surgery. Recommended follow-up with PCP. In agreement this plan. I will provide the patient with a prescription for lidocaine patches. I instructed the patient to follow up with their PCP in the next 1-3 days. I provided contact information for follow up with orthopedics. I explained that the patient should return to the emergency department if they experience any worsening symptoms. Strict return precautions were discussed with the patient. The patient expressed understanding of these instructions. I answered all questions that the patient had. The patient was discharged home in good condition with their prescriptions and follow up information. Diagnosis/symptom? @ -Neck pain, cervical spine degeneration Acute, or Chronic, or Acute on Chronic? @ -Acute on chronic Uncomplicated (without systemic symptoms) or Complicated (systemic symptoms)? @ -Complicated Side effects of treatment? @ -none Exacerbation, Progression, or Severe Exacerbation] @ -no Poses a threat to life or bodily function? @ -no (Marcelo Khan) Disposition <Lavell Mckeon - Last Filed: 12/30/22 05:03> Is patient prescribed a controlled substance at d/c from ED?: No Time of Disposition: 07:44 <Marcelo Khan - Last Filed: 12/30/22 10:55> Clinical Impression: Neck pain, Cervical spine degeneration Disposition: HOME SELF-CARE Condition: Good Instructions (If sedation given, give patient instructions): Cervical Sprain (ED) Prescriptions: Lidocaine 5% Patch [Lidoderm 5% Patch] 1 patch TOPICAL DAILY PRN 14 Days #14 patch PRN Reason: Pain Referrals: Hawk Gaona MD [Primary Care Provider] - 1-2 days Gael Parson DO [Doctor of Osteopathic Medicine] - 1-2 days
[2022-12-30] MEDS ORDERED: diphenhydrAMINE 50 MG CAP PO STA (06:04)
[2022-12-30] MEDS ORDERED: ONDANSETRON 4 MG TAB PO STA (06:04)
[2022-12-30 07:28] VITALS: BP 176/97; PULSE 60; RESP 17
[2022-12-30] MEDS ORDERED: METOCLOPRAMIDE 5 MG TAB PO STA (07:34)
--- NOTE | 2022-12-30 07:35 | CT ---
EXAMINATION TYPE: CT brain cspine wo con DATE OF EXAM: 12/30/2022 COMPARISON: Brain 07/17/2020 HISTORY: 72-year-old male with a neck pain for [address] DLP: 1428.5 mGycm Automated exposure control for dose reduction was used. Technique: Examination of the head was done in axial plane without intravenous contrast. Coronal and sagittal reconstructions performed. CT of the cervical spine was obtained in axial plane without intravenous injection of contrast mater ial. Coronal and sagittal reformatted images were obtained from the axial views for evaluation of f ractures, spinal alignment and canal. FINDINGS: Head: There is no evidence of acute intracranial hemorrhage, acute ischemic changes, mass, mass-effect, or extra-axial fluid collection. There is no effacement of cerebral sulci or basal subarachnoid cister ns. There is no hydrocephalus. There is no midline shift. Hutchison-white matter distinction is preserv ed. Benign basal ganglia calcifications on the right. Moderate patchy white matter hypodensities in both cerebral hemispheres. Mild ventriculomegaly is unchanged likely in part due to central cerebral atrop hy. Encephalomalacia along the left frontoparietal junction is unchanged. Asymmetrically smaller right maxillary sinus. Mild mucosal thickening right maxillary sinus. Rightwar d nasal septal deviation inferiorly and leftward deviation superiorly. Orbits and globes are intact. Cervical spine: There is advanced spondylotic changes throughout. No craniocervical junction abnormality. Degenerativ e bony ankylosis at the C1 dens articulation. Partially calcified ligamentous thickening/pannus here at C1-2. This narrows the spinal canal at the C1 level only minimally at 1.3 cm. Degenerative grade 1 anterolisthesis C2-C3, C3-C4, C4-C5. Grade 1 retrolisthesis C6/C7. Multilevel disc ossify complexes are present. Focal ligamentum flavum calcification on the left at C5 likely indenting the left dorsal cord and ove rall mildly narrowing the spinal canal. At least mild narrowing of the spinal canal C2-C3. Possible moderate narrowing of the spinal canal at C3-C4 and C4-C5. Assessment of the spinal canal below this level is limited due to artifact from pat ient's shoulders. No acute fractures seen of the cervical spine. There is variable moderate neuroforaminal stenosis throughout, more severe on the right at C6/C7. Sagittal and coronal reformatted images confirm above findings. COMBINED IMPRESSION: 1. Mild ventriculomegaly remains unchanged, likely in part due to central cerebral atrophy. Correlate to exclude a component of NPH. Moderate burden of chronic small vessel ischemic disease. No acute in tracranial abnormality seen. 2. No acute fracture of the cervical spine. There is advanced spondylotic changes throughout with deg enerative grade 1 spondylolisthesis C2-C3, C3-C4, C4-C5, and C6-C7. 3. Partially calcified ligamentous hypertrophy or pannus at the dens. There is a degenerative bony an kylosis at the C1 dens articulation. This contributes to only minimal narrowing of the spinal canal a t this level. 4. More moderate spinal canal stenosis at C3-C4 and C4-C5. Variable moderate foraminal stenoses throu ghout, more severe on the right at C6-C7.
== END 2022-12-30 08:25 | disposition home or self-care (01) ==
LOC: EC 04:20
DX: M50.30 Other cervical disc degeneration, unspecified cervical region (principal); E11.40 Type 2 diabetes mellitus with diabetic neuropathy, unspecified; I10 Essential (primary) hypertension; E78.5 Hyperlipidemia, unspecified; K21.9 Gastro-esophageal reflux disease without esophagitis; F41.9 Anxiety disorder, unspecified; F32.A Depression, unspecified; Z79.02 Long term (current) use of antithrombotics/antiplatelets; Z79.84 Long term (current) use of oral hypoglycemic drugs; Z79.899 Other long term (current) drug therapy; Z88.5 Allergy status to narcotic agent; Z91.041 Radiographic dye allergy status; Z88.8 Allergy status to other drugs, medicaments and biological substances; Z86.73 Personal history of transient ischemic attack (TIA), and cerebral infarction without residual deficits
CPT/HCPCS: 72125; 70450; 99284; 96372; J1170

== ENCOUNTER → 2023-01-24 | Outpatient (CLI) | payer MEDICARE, OTHER ==
--- NOTE | 2023-01-24 20:51 | MR ---
EXAMINATION TYPE: MR cervical spine wo con DATE OF EXAM: 01/24/2023 COMPARISON: None HISTORY: Neck pain, headache, BUE radiculopathy. CONTRAST: Performed utilizing 0 mL intravenous Gadavist gadolinium contrast. TECHNIQUE: Multiplanar multiecho imaging on a 3.0 Kate magnet is performed through the cervical spin e. Number is identified from C2-3 C7 cervical ribs may be present. FINDINGS: The craniovertebral junction is normal. Vertebral body alignment is normal. C7-T1: No focal disc herniation or significant disc bulge is evident. No spinal canal stenosis or n eural foraminal stenosis is present. C6-7: Broad-based disc bulges anterior thecal sac flattening. No AP spinal canal stenosis is present. Uncovertebral joint hypertrophy is present with severe bilateral foraminal stenosis.. C5-6: Central protrusion is present with mild to moderate anterior thecal sac compression. No cord co ntact is evident. There is a large spur or ligamentum flavum laxity left posterior lateral region wit h significant thecal sac compression. This has cord contact and cord deformity. Spinal canal stenosis anterior to this spur is present. Mild to moderate bilateral foraminal narrowing is present. C4-5: Broad-based disc bulge with mild anterior thecal sac compression. No AP spinal canal stenosis i s present. Moderate bilateral foraminal narrowing is present.. C3-4: Large central disc herniation is present with moderate anterior thecal sac compression. Cord co ntact with some cord deformity is present. AP spinal canal stenosis posterior to the disc herniation is present measuring 0.6 cm. Mild to moderate bilateral foraminal stenosis present from uncovertebral joint hypertrophy. C2-3: Broad-based disc bulge is present with mild anterior thecal sac compression. No cord contact or spinal canal stenosis is present. Neural foramen are patent. IMPRESSIONS: 1. Left C5-6 posterior spurring with moderate anterior thecal sac compression and cord contact deform ity. Spinal canal stenosis anterior to this spur is present. 2. C3-4 central disc herniation with moderate anterior thecal sac compression cord contact and cord d eformity. AP spinal canal stenosis is present. 3. Multilevel additional disc bulging present C2-3 through C6-7 with anterior thecal sac contact with out stenosis.
== END | disposition home or self-care (01) ==
LOC: RADMRIMAIN 12:41
PROVIDERS: ATTEND Orthopaedic Surgery
DX: M50.11 Cervical disc disorder with radiculopathy, high cervical region (principal); M47.22 Other spondylosis with radiculopathy, cervical region; M48.02 Spinal stenosis, cervical region; M46.02 Spinal enthesopathy, cervical region; M43.8X2 Other specified deforming dorsopathies, cervical region
CPT/HCPCS: 72141

== ENCOUNTER 2023-05-02 05:19 | Observation (INO) | payer MEDICARE, OTHER ==
[2023-05-02] MEDS ORDERED: SODIUM CHLORIDE 0.9% 1,000 ML IV STA (05:27)
--- NOTE | 2023-05-02 05:29 | ED ---
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 Patient presented to the ER via ambulance for evaluation after syncopal episode at home. History is obtained from the patient with a somewhat broken history due to his language difficulty however patient had reported that he had gotten up to use the restroom and then got dizzy and passed out. Patient denies chest pain or trouble breathing. - Related Data Home Medications Medication Instructions Recorded Confirmed RX: metFORMIN HCL [Glucophage] 500 mg PO BID 12/27/19 07/10/21 RX: Clopidogrel Bisulfate [Plavix] 75 mg PO DAILY 07/16/20 07/15/21 RX: Atorvastatin [Lipitor] 40 mg PO W/SUPPER 03/11/21 07/10/21 RX: Citalopram Hydrobromide 20 mg PO QAM 03/11/21 07/10/21 [Citalopram HBr] RX: Gabapentin [Neurontin] 300 mg PO HS 03/11/21 07/10/21 RX: Losartan [Cozaar] 25 mg PO QAM 03/11/21 07/10/21 RX: Omeprazole 20 mg PO HS PRN 03/11/21 07/10/21 RX: Pantoprazole [Protonix] 40 mg PO QAM 03/11/21 07/10/21 RX: amLODIPine [Norvasc] 10 mg PO QAM 03/11/21 07/10/21 RX: hydrALAZINE HCL 50 mg PO TID 03/11/21 07/10/21 RX: sitaGLIPtin PHOSPHATE [Januvia] 100 mg PO DAILY 03/11/21 07/10/21 Previous Rx's Medication Instructions Recorded Docusate [Colace] 100 mg PO BID #30 capsule 07/17/21 HYDROcodone/APAP 5-325MG [Breeding 1 tab PO Q6HR PRN 3 Days #12 tab 07/17/21 5-325] RX: Furosemide [Lasix] 20 mg PO BID #0 07/17/21 RX: Loratadine-Pseudoeph 5-120 mg 1 each PO Q12HR PRN #10 tablet 07/17/21 [Claritin-D 12 Hour] RX: Lidocaine 5% Patch [Lidoderm 1 patch TOPICAL DAILY PRN 14 Days 12/30/22 5% Patch] #14 patch Allergies Allergy/AdvReac Type Severity Reaction Status Date / Time dipyridamole AdvReac Nausea & Verified 05/02/23 05:25 [From Persantine] Vomiting Iodinated Contrast Media AdvReac Nausea & Verified 05/02/23 05:25 [Iodinated Contrast Media - Vomiting IV Dye] morphine AdvReac Nausea & Verified 05/02/23 05:25 Vomiting Review of Systems ROS Statement: Those systems with pertinent positive or pertinent negative responses have been documented in the HPI. ROS Other: All systems not noted in ROS Statement are negative. Past Medical History Past Medical History: Chest Pain / Angina, CVA/TIA, Diabetes Mellitus, GERD/Reflux, Hyperlipidemia, Hypertension, Sleep Apnea/CPAP/BIPAP, Syncope Additional Past Medical History / Comment(s): hiatal hernia,Hx "CVA 06/14/20 with residual speech difficulties, right side facial drooping, ambulates slowly, gets confused occasionally." Recent "difficulty swallowing, getting worse, can't swallow water without choking,unable to swallow meds without applesauce." Neuropathy left foot. Cannot tolerate CPAP, varicose veins, hiatal hernia, constipation occasional bleeding with stools, hemorrhoids, hyperkalemia. History of Any Multi-Drug Resistant Organisms: MRSA Date of last positivie culture/infection: November 2017 MDRO Source:: Abdomen at [facility] per Dr. Verdin Past Surgical History: Back Surgery, Cholecystectomy, Heart Catheterization, Hernia Repair Additional Past Surgical History / Comment(s): EGD,Right knee arthroscopy, bilateral cataracts, bilateral inguinal hernia repair, alban fundoplasty(stomach wrapped), loop monitor implant placed 06/14/20. Past Anesthesia/Blood Transfusion Reactions: No Reported Reaction Additional Past Anesthesia/Blood Transfusion Reaction / Comment(s): no hx blood transfusion Past Psychological History: Anxiety, Depression Smoking Status: Never smoker Past Alcohol Use History: Rare Past Drug Use History: None Reported - Past Family History Mother Family Medical History: Dementia Additional Family Medical History / Comment(s): HAD PACEMAKER, age 8 6. Father Family Medical History: Dementia Additional Family Medical History / Comment(s): Alzheimers. General Exam Limitations: no limitations General appearance: alert, other (Diaphoretic) Head exam: Present: atraumatic ENT exam: Present: normal exam Respiratory exam: Absent: respiratory distress Cardiovascular Exam: Present: regular rate, irregular rhythm GI/Abdominal exam: Present: soft. Absent: distended Rectal exam: Present: deferred Extremities exam: Present: other (Right-sided deficits) Neurological exam: Present: alert, oriented X3 Psychiatric exam: Present: normal affect, normal mood Skin exam: Present: diaphoretic Course Vital Signs 05/02/23 05/02/23 05:20 06:25 Temperature 97.6 F Pulse Rate 86 58 L Respiratory 16 16 Rate Blood Pressure 134/75 81/50 O2 Sat by Pulse 93 L 95 Oximetry EKG Findings - EKG Comments: EKG Findings:: EKG interpreted by me, EKG obtained due to complaint of syncope, EKG obtained at 5:20 AM rate is 84 rhythm is sinus with a left anterior fascicul ar block, GA 166 QRS [address] elevations or depressions no evidence of acute ischemia or infarction. Medical Decision Making - Medical Decision Making Was pt. sent in by a medical professional or institution (, PA, [employer]ING [employer], urgent care, hospital, or longterm...) When possible be specific @ -No Did you speak to anyone other than the patient for history (EMS, parent, family, police, friend...)? What history was obtained from this source @ -No Did you review nursing and triage notes (agree or disagree)? Why? @ -I reviewed and agree with nursing and triage notes Were old charts reviewed (outside hosp., previous admission, EMS record, old EKG, old radiological studies, urgent care reports/EKG's, longterm records)? Report findings @ -Previous admission, imaging were reviewed Differential Diagnosis (chest pain, altered mental status, abdominal pain women, abdominal pain men, vaginal bleeding, weakness, fever, dyspnea, syncope, headache, dizziness, GI bleed, back pain, seizure, CVA, palpatations, mental health)? @ -Differential syncope EKG interpreted by me (3pts min.). @ -As above X-rays interpreted by me (1pt min.). @ -No acute cardiopulmonary process CT interpreted by me (1pt min.). @ -Stroke with no acute bleed or mass U/S interpreted by me (1pt. min.). @ -None done What testing was considered but not performed or refused? (CT, X-rays, U/S, labs)? Why? @ -Echo, carotid Doppler can be performed upon admission What meds were considered but not given or refused? Why? @ -None Did you discuss the management of the patient with other professionals (professionals i.e. Dr., PA, [employer], lab, RT, psych nurse, social studies teacher, child care, teacher, [employer] revenue officer, case liner)? Give summary @ -No Was smoking cessation discussed for >3mins.? @ -No Was critical care preformed (if so, how long)? @ -No Were there social determinants of health that impacted care today? How? (Homelessness, low income, unemployed, alcoholism, drug addiction, transportation, low edu. Level, literacy, decrease access to med. care, usp, rehab)? @ -No Was there de-escalation of care discussed even if they declined (Discuss DNR or withdrawal of care, Hospice)? DNR status @ -No What co-morbidities impacted this encounter? (DM, HTN, Smoking, COPD, CAD, Cancer, CVA, ARF, Chemo, Hep., AIDS, mental health diagnosis, sleep apnea, morbid obesity)? @ -CVA Was patient admitted / discharged? Hospital course, mention meds given and route, prescriptions, significant lab abnormalities, going to OR and other pertinent info. @ -Admit The patient was seen and evaluated, history is obtained from the patient and EMS. History is somewhat limited by the patient's expressive aphasia but he reports he was using the restroom got dizzy passed out. Upon arrival patient is diaphoretic and vogt but denying chest pain or shortness of breath. Labs and imaging were obtained, there are no acute findings on the emergency department however given the patient's history, advanced age, presentation with diaphoresis and syncope and did feel he warranted further workup including an echo and possibly carotid Dopplers. Patient will be admitted to his primary care physician Dr. Hawk Stark cardiology on consult. Undiagnosed new problem with uncertain prognosis? @ -No Drug Therapy requiring intensive monitoring for toxicity (Heparin, Nitro, Insulin, Cardizem)? @ -No Were any procedures done? @ -No Diagnosis/symptom? @ -Syncope and collapse Acute, or Chronic, or Acute on Chronic? @ -Acute Uncomplicated (without systemic symptoms) or Complicated (systemic symptoms)? @ -default Side effects of treatment? @ -No Exacerbation, Progression, or Severe Exacerbation? @ -No Poses a threat to life or bodily function? How? (Chest pain, USA, LA, pneumonia, PE, COPD, DKA, ARF, appy, cholecystitis, CVA, Diverticulitis, Homicidal, Suicidal, threat to staff... and all critical care pts) @ -No - Lab Data Result diagrams: 05/02/23 05:20 05/02/23 05:20 Lab Results 05/02/23 05/02/23 05/02/23 Range/Units 05:20 05:20 05:20 WBC 10.6 (3.8-10.6) k/uL RBC 4.50 (4.30-5.90) m/uL Hgb 14.2 (13.0-17.5) gm/dL Hct 42.4 (39.0-53.0) % MCV 94.2 (80.0-100.0) fL MCH 31.5 (25.0-35.0) pg MCHC 33.4 (31.0-37.0) g/dL RDW 12.5 (11.5-15.5) % Plt Count 177 (150-450) k/uL MPV 9.8 Neutrophils % 52 % Lymphocytes % 36 % Monocytes % 7 % Eosinophils % 1 % Basophils % 0 % Neutrophils # 5.5 (1.3-7.7) k/uL Lymphocytes # 3.8 (1.0-4.8) k/uL Monocytes # 0.8 (0-1.0) k/uL Eosinophils # 0.1 (0-0.7) k/uL Basophils # 0.0 (0-0.2) k/uL PT 10.3 (10.0-12.5) sec INR 0.9 (<1.2) APTT 24.3 (22.0-30.0) sec Sodium 132 L (137-145) mmol/L Potassium 3.1 L (3.5-5.1) mmol/L Chloride 98 (98-107) mmol/L Carbon Dioxide 18 L (22-30) mmol/L Anion Gap 16 mmol/L BUN 13 (9-20) mg/dL Creatinine 1.14 (0.66-1.25) mg/dL Est GFR (CKD-EPI)AfAm 74 (>60 ml/min/1.73 sqM) Est GFR (CKD-EPI)NonAf 64 (>60 ml/min/1.73 sqM) Glucose 253 H (74-99) mg/dL POC Glucose (mg/dL) (70-110) mg/dL POC Glu Otolaryngologist ID Calcium 8.7 (8.4-10.2) mg/dL Total Bilirubin 0.4 (0.2-1.3) mg/dL AST 48 (17-59) U/L ALT 41 (4-49) U/L Alkaline Phosphatase 96 (38-126) U/L Troponin I (0.000-0.034) ng/mL Total Protein 7.1 (6.3-8.2) g/dL Albumin 4.4 (3.5-5.0) g/dL 05/02/23 05/02/23 Range/Units 05:20 05:31 WBC (3.8-10.6) k/uL RBC (4.30-5.90) m/uL Hgb (13.0-17.5) gm/dL Hct (39.0-53.0) % MCV (80.0-100.0) fL MCH (25.0-35.0) pg MCHC (31.0-37.0) g/dL RDW (11.5-15.5) % Plt Count (150-450) k/uL MPV Neutrophils % % Lymphocytes % % Monocytes % % Eosinophils % % Basophils % % Neutrophils # (1.3-7.7) k/uL Lymphocytes # (1.0-4.8) k/uL Monocytes # (0-1.0) k/uL Eosinophils # (0-0.7) k/uL Basophils # (0-0.2) k/uL PT (10.0-12.5) sec INR (<1.2) APTT (22.0-30.0) sec Sodium (137-145) mmol/L Potassium (3.5-5.1) mmol/L Chloride (98-107) mmol/L Carbon Dioxide (22-30) mmol/L Anion Gap mmol/L BUN (9-20) mg/dL Creatinine (0.66-1.25) mg/dL Est GFR (CKD-EPI)AfAm (>60 ml/min/1.73 sqM) Est GFR (CKD-EPI)NonAf (>60 ml/min/1.73 sqM) Glucose (74-99) mg/dL POC Glucose (mg/dL) 261 H (70-110) mg/dL POC Glu Otolaryngologist ID Dex Bowens Calcium (8.4-10.2) mg/dL Total Bilirubin (0.2-1.3) mg/dL AST (17-59) U/L ALT (4-49) U/L Alkaline Phosphatase (38-126) U/L Troponin I <0.012 (0.000-0.034) ng/mL Total Protein (6.3-8.2) g/dL Albumin (3.5-5.0) g/dL Disposition Clinical Impression: Syncope Disposition: ADMITTED IP TO THIS HOSP Condition: Stable Is patient prescribed a controlled substance at d/c from ED?: No Referrals: Hawk Gaona MD [Primary Care Provider] - 1-2 days
[2023-05-02 05:32] LABS: Glucose,Whole Blood 261 mg/dL (70-110)
[2023-05-02] MEDS ORDERED: HYDROmorphone 0.5 MG/0.5 ML SYRINGE IVP STA (05:46)
[2023-05-02] MEDS ORDERED: HYDROmorphone 1 MG/ML 1 ML SYRINGE IVP STA (05:46)
[2023-05-02] MEDS ORDERED: ONDANSETRON 4 MG/2 ML VIAL IVP STA (05:47)
[2023-05-02 05:54] LABS: Basophils % (A) 0 %; Eosinophils # (A) 0.1 k/uL (0-0.7); Eosinophils % (A) 1 %; HCT 42.4 % (39.0-53.0); HGB 14.2 gm/dL (13.0-17.5); Lymphocytes # (A) 3.8 k/uL (1.0-4.8); Lymphocytes % (A) 36 %; MCH 31.5 pg (25.0-35.0); MCHC 33.4 g/dL (31.0-37.0); MCV 94.2 fL (80.0-100.0); Mean Platelet Volume 9.8; Monocytes # (A) 0.8 k/uL (0-1.0); Monocytes % (A) 7 %; Neutrophils # (A) 5.5 k/uL (1.3-7.7); Neutrophils % (A) 52 %; Platelet Count 177 k/uL (150-450); RDW 12.5 % (11.5-15.5); WBC 10.6 k/uL (3.8-10.6)
[2023-05-02 06:03] LABS: INR 0.9 (<1.2); Partial Thromboplastin Time 24.3 sec (22.0-30.0); Prothrombin Time 10.3 sec (10.0-12.5)
[2023-05-02 06:30] LABS: ALT 41 U/L (4-49); AST 48 U/L (17-59); African American GFR (CKD) 74 (>60 ml/min/1.73 sqM); Albumin 4.4 g/dL (3.5-5.0); Alkaline Phosphatase 96 U/L (38-126); Anion Gap 16 mmol/L; Blood Urea Nitrogen 13 mg/dL (9-20); Calcium 8.7 mg/dL (8.4-10.2); Carbon Dioxide 18 mmol/L (22-30); Chloride 98 mmol/L (98-107); Glucose 253 mg/dL (74-99); Non-African American GFR(CKD) 64 (>60 ml/min/1.73 sqM); Potassium 3.1 mmol/L (3.5-5.1); Sodium 132 mmol/L (137-145); Total Bilirubin 0.4 mg/dL (0.2-1.3); Total Protein 7.1 g/dL (6.3-8.2)
[2023-05-02] MEDS ORDERED: SODIUM CHLORIDE 0.9% 1,000 ML IV ONE (06:40)
--- NOTE | 2023-05-02 07:19 | XR ---
EXAMINATION TYPE: XR chest 1V portable DATE OF EXAM: 05/02/2023 6:02 AM CLINICAL INDICATION:Male, 72 years old with history of syncope; COMPARISON: Chest radiographs from 07/16/2020 TECHNIQUE: XR chest 1V portable Frontal view of the chest. FINDINGS: Lungs/Pleura: There is no evidence of pleural effusion, focal consolidation, or pneumothorax. Pulmonary vascularity: Unremarkable. Heart/mediastinum: Cardiomediastinal silhouette is unremarkable. A loop recorder projects over the le ft thorax over the heart. Musculoskeletal: No acute osseous pathology. IMPRESSION: No acute cardiopulmonary disease/process.
--- NOTE | 2023-05-02 07:31 | CT ---
EXAMINATION TYPE: CT brain wo con CT DLP: 1138.4 mGycm, Automated exposure control for dose reduction was used. DATE OF EXAM: 05/02/2023 7:21 AM COMPARISON: 12/30/2022. CLINICAL INDICATION:Male, 72 years old with history of syncope, Syncope, hx CVA TECHNIQUE: Brain: Axial CT images of the brain were obtained with coronal and sagittal reformats created and rev iewed. Contrast used: None. Oral contrast used: None. FINDINGS: Brain: Extra-axial spaces: No abnormal extra-axial fluid collections. Ventricular system: Within normal limits Cerebral parenchyma: Encephalomalacia of the left frontal/parietal lobe similar prior No acute intrap arenchymal hemorrhage or mass effect. The vogt-white junction is well differentiated. Scattered hypo attenuating areas are seen within the white matter. Cerebellum: Unremarkable. Mass effect: No evidence of midline shift. Intracranial vasculature: Atherosclerotic calcifications of the intracranial vessels. Soft tissues: Normal. Calvarium/osseous structures: No depressed skull fracture. Paranasal sinuses and mastoid air cells: Mild scattered paranasal sinus disease. Visualized orbits: Bilateral aphakia IMPRESSION: 1. No acute intracranial process. 2. Nonspecific white matter changes, likely secondary to chronic small vessel ischemic disease. 3. Stable remote lacunar injury
[2023-05-02] MEDS ORDERED: NALOXONE 0.4 MG/ML 1 ML VIAL IV PRN (07:53)
--- NOTE | 2023-05-02 16:12 | P.CRDCN ---
History of Present Illness Consult date: 05/02/23 Consult reason: sycope History of present illness: History of present illness: This is a 72-year-old male patient previously seen by Dr. Marcano last seen 02/2021 with past medical history of hypertension, hyperlipidemia, diabetes, CVA, syncopal episodes. Patient does have a loop recorder. We have been asked to evaluate the patient for syncope. Patient presented to the emergency center due to syncope at home. The patient was apparently dizzy and attempting to get some water to drink and ended up falling down. He denies having any chest pain. He does complain of headache. Patient has chronic weakness on the right side secondary to a CVA. Patient also complains of congestion in his head and sinus symptoms. Patient is difficult to understand due to speech difficulty related to the CVA. Patient is seen today in the emergency center waiting for bed on the observation unit. EKG sinus rhythm with left anterior fascicular block Chest x-ray: No acute process CAT scan of the brain no acute intracranial process. CBC unremarkable. Sodium 132, potassium 3.1, BUN 13 creatinine 1.1. Liver function tests are normal. Troponin negative 1. Blood sugar 261. Home cardiac medications: Amlodipine 10 mg daily, atorvastatin 40 mg with supper, Plavix 75 mg daily, Lasix 20 mg daily. Echocardiogram performed 2020 revealed EF of 50-55%, severe concentric left ventricle hypertrophy, mild mitral regurgitation, mild tricuspid regurgitation. Review Of Systems: At the time of my evaluation: Constitutional: No fever, no chills. No weakness, fatigue or lethargy. EENT: + headache. No dizziness. Lungs: No shortness of breath, cough, no sputum production. No wheezing. Cardiovascular: No chest pain, no lower extremity edema. No palpitations. No paroxysmal nocturnal dyspnea. No orthopnea. No lightheadedness or dizziness. No syncopal episodes. Abdominal: No abdominal pain. No nausea, vomiting. No diarrhea. No constipation. No bloody or tarry stools. Genitourinary: No dysuria.. No urinary retention. Musculoskeletal: No myalgias. No muscle weakness, no frequent falls. No back pain. No neck pain. Integumentary: No wounds. No rash. No unusual bruising. Neurologic: No aphasia. No facial droop. No change in mentation. No head injury. No headache. Physical examination: Gen: This is a 72-year-old male. He is resting on ER stretcher appears to be comfortable, no acute distress. VS: reviewed HEENT: Head is atraumatic, normocephalic. Pupils equal, round. Sclerae is anicteric. NECK: Supple. No JVD. . LUNGS: Clear to auscultation. No wheezes or rhonchi. No intercostal retractions. HEART: Regular rate and rhythm. No murmur. ABDOMEN: Soft No tenderness. EXTREMITIES: No pedal edema. No calf tenderness. NEUROLOGICAL: Patient is awake, alert and oriented x3. Assessment: Syncope Hypertension Hyperlipidemia Diabetes History of stroke Plan: Resume patient's home cardiac medications Enteric a loop recorder Obtain 2-D echocardiogram and Doppler study to assess cardiac structure and function Further recommendations to follow based upon clinical course Thank you kindly for this consultation. Nurse practitioner note has been reviewed, I agree with documented findings and plan of care. Patient was seen and examined. Past Medical History Past Medical History: Chest Pain / Angina, CVA/TIA, Diabetes Mellitus, GERD/Reflux, Hyperlipidemia, Hypertension, Sleep Apnea/CPAP/BIPAP, Syncope Additional Past Medical History / Comment(s): hiatal hernia,Hx "CVA 06/14/20 with residual speech difficulties, right side facial drooping, ambulates slowly, gets confused occasionally." Recent "difficulty swallowing, getting worse, can't swallow water without choking,unable to swallow meds without applesauce." Neuropathy left foot. Cannot tolerate CPAP, varicose veins, hiatal hernia, constipation occasional bleeding with stools, hemorrhoids, hyperkalemia. History of Any Multi-Drug Resistant Organisms: MRSA Date of last positivie culture/infection: November 2017 MDRO Source:: Abdomen at [facility] per Dr. Verdin Past Surgical History: Back Surgery, Cholecystectomy, Heart Catheterization, Hernia Repair Additional Past Surgical History / Comment(s): EGD,Right knee arthroscopy, bilateral cataracts, bilateral inguinal hernia repair, alban fundoplasty(stomach wrapped), loop monitor implant placed 06/14/20. Past Anesthesia/Blood Transfusion Reactions: No Reported Reaction Additional Past Anesthesia/Blood Transfusion Reaction / Comment(s): no hx blood transfusion Past Psychological History: Anxiety, Depression Smoking Status: Never smoker Past Alcohol Use History: Rare Past Drug Use History: None Reported - Past Family History Mother Family Medical History: Dementia Additional Family Medical History / Comment(s): HAD PACEMAKER, age 86. Father Family Medical History: Dementia Additional Family Medical History / Comment(s): Alzheimers. Medications and Allergies Home Medications Medication Instructions Recorded Confirmed Type Clopidogrel Bisulfate [Plavix] 75 mg PO DAILY 07/16/20 05/02/23 History Atorvastatin [Lipitor] 40 mg PO W/SUPPER 03/11/21 05/02/23 History Citalopram Hydrobromide 20 mg PO DAILY 03/11/21 05/02/23 History [Citalopram HBr] amLODIPine [Norvasc] 10 mg PO DAILY 03/11/21 05/02/23 History Budesonide [Pulmicort] 0.5 mg INHALATION RT-BID 05/02/23 05/02/23 History Empagliflozin [Jardiance] 25 mg PO DAILY 05/02/23 05/02/23 History Furosemide [Lasix] 20 mg PO DAILY 05/02/23 05/02/23 History Ipratropium-Albuterol Nebulize 3 ml INHALATION RT-BID 05/02/23 05/02/23 History [Duoneb 0.5 mg-3 mg/3 ml Soln] Montelukast [Singulair] 10 mg PO DAILY 05/02/23 05/02/23 History Omeprazole [PriLOSEC] 40 mg PO DAILY 05/02/23 05/02/23 History Polymyxin B-Trimeth Sulf Ophth 2 drops BOTH EYES DAILY 05/02/23 05/02/23 History [Polytrim Opthalmic] Tamsulosin [Flomax] 0.4 mg PO DAILY 05/02/23 05/02/23 History metFORMIN HCL 500 mg PO DAILY 05/02/23 05/02/23 History Allergies Allergy/AdvReac Type Severity Reaction Status Date / Time dipyridamole AdvReac Nausea & Verified 05/02/23 09:33 [From Persantine] Vomiting Iodinated Contrast Media AdvReac Nausea & Verified 05/02/23 09:33 [Iodinated Contrast Media - Vomiting IV Dye] morphine AdvReac Nausea & Verified 05/02/23 09:33 Vomiting Physical Exam Vitals: Vital Signs Temp Pulse Resp BP Pulse Ox 05/02/23 06:25 58 L 16 81/50 95 05/02/23 05:20 97.6 F 86 16 134/75 93 L Intake and Output 05/01/23 05/02/23 05/02/23 22:59 06:59 14:59 Other: Weight 86.183 kg Results 05/02/23 05:20 05/02/23 05:20 Cardiac Enzymes 05/02/23 05/02/23 Range/Units 05:20 05:20 AST 48 (17-59) U/L Troponin I <0.012 (0.000-0.034) ng/mL Coagulation 05/02/23 Range/Units 05:20 PT 10.3 (10.0-12.5) sec APTT 24.3 (22.0-30.0) sec CBC 05/02/23 Range/Units 05:20 WBC 10.6 (3.8-10.6) k/uL RBC 4.50 (4.30-5.90) m/uL Hgb 14.2 (13.0-17.5) gm/dL Hct 42.4 (39.0-53.0) % Plt Count 177 (150-450) k/uL Comprehensive Metabolic Panel 05/02/23 Range/Units 05:20 Sodium 132 L (137-145) mmol/L Potassium 3.1 L (3.5-5.1) mmol/L Chloride 98 (98-107) mmol/L Carbon Dioxide 18 L (22-30) mmol/L BUN 13 (9-20) mg/dL Creatinine 1.14 (0.66-1.25) mg/dL Glucose 253 H (74-99) mg/dL Calcium 8.7 (8.4-10.2) mg/dL AST 48 (17-59) U/L ALT 41 (4-49) U/L Alkaline Phosphatase 96 (38-126) U/L Total Protein 7.1 (6.3-8.2) g/dL Albumin 4.4 (3.5-5.0) g/dL Current Medications Generic Name Dose Route Start Last Admin Trade Name Freq PRN Reason Stop Dose Admin Sodium Chloride 1,000 mls @ 75 mls/hr 05/02/23 05:27 05/02/23 06:16 Saline 0.9% IV 05/02/23 18:46 75 mls/hr .[id number] STA Administration Naloxone HCl 0.2 mg 05/02/23 07:53 Naloxone 0.4 Mg/Ml 1 Ml Vial IV Q2M PRN Opioid Reversal Intake and Output 05/01/23 05/02/23 05/02/23 22:59 06:59 14:59 Other: Weight 86.183 kg 05/02/23 05:20 05/02/23 05:20
[2023-05-02] MEDS: ATORVASTATIN 40 MG TAB PO SCH (18:13)
[2023-05-02] MEDS: CLOPIDOGREL 75 MG TAB PO SCH (18:13)
[2023-05-02 19:56] LABS: Glucose,Whole Blood 158 mg/dL (70-110)
[2023-05-02] MEDS ORDERED: Potassium Replacement Protocol 1 EACH MISC MISCELLANE PRN (20:13)
[2023-05-02] MEDS: INSULIN ASPART (NovoLOG) 100 UNIT/ML VIAL SQ SCH (20:48)
[2023-05-02] MEDS: POTASSIUM CHLORIDE ER 20 MEQ TAB.ER PO SCH ×2 (20:48→22:26)
[2023-05-02] MEDS: IPRATROPIUM-ALBUTEROL 3 ML NEB INHALATION SCH (21:44)
[2023-05-02] MEDS: BUDESONIDE 0.5 MG/2 ML NEBU INHALATION SCH (21:44)
[2023-05-03 06:08] LABS: Glucose,Whole Blood 156 mg/dL (70-110)
[2023-05-03] MEDS: INSULIN ASPART (NovoLOG) 100 UNIT/ML VIAL SQ SCH ×4 (06:45→21:38)
[2023-05-03] MEDS: PANTOPRAZOLE 40 MG TABLET PO SCH (07:11)
[2023-05-03] MEDS: BUDESONIDE 0.5 MG/2 ML NEBU INHALATION SCH (08:32)
[2023-05-03] MEDS: IPRATROPIUM-ALBUTEROL 3 ML NEB INHALATION SCH (08:32)
--- NOTE | 2023-05-03 09:13 | P.PN ---
Subjective Progress Note Date: 05/03/23 History of present illness: This is a 72-year-old male patient previously seen by Dr. Marcano last seen 02/2021 with past medical history of hypertension, hyperlipidemia, diabetes, CVA, syncopal episodes. Patient does have a loop recorder. We have been asked to evaluate the patient for syncope. Patient presented to the emergency center due to syncope at home. The patient was apparently dizzy and attempting to get some water to drink and ended up falling down. He denies having any chest pain. He does complain of headache. Patient has chronic weakness on the right side secondary to a CVA. Patient also complains of congestion in his head and sinus symptoms. Patient is difficult to understand due to speech difficulty related to the CVA. Patient is seen today in the emergency center waiting for bed on the observation unit. EKG sinus rhythm with left anterior fascicular block Chest x-ray: No acute process CAT scan of the brain no acute intracranial process. CBC unremarkable. Sodium 132, potassium 3.1, BUN 13 creatinine 1.1. Liver function tests are normal. Troponin negative 1. Blood sugar 261. Home cardiac medications: Amlodipine 10 mg daily, atorvastatin 40 mg with supper, Plavix 75 mg daily, Lasix 20 mg daily. Echocardiogram performed 2019 revealed EF of 50-55%, severe concentric left ventricle hypertrophy, mild mitral regurgitation, mild tricuspid regurgitation. 05/03 Patient is seen and examined in the emergency center. The loop recorder has been interrogated no pauses or arrhythmias noted. Patient has had no other episodes of syncope or dizziness. Echocardiogram is pending. Heart rate has been in the 60s, blood pressure 147/86, pulse ox 97% on 4 L nasal cannula. Physical examination: Gen: This is a 72-year-old male. He is resting on ER stretcher appears to be comfortable, no acute distress. VS: reviewed HEENT: Head is atraumatic, normocephalic. Pupils equal, round. Sclerae is anicteric. LUNGS: Clear to auscultation. No wheezes or rhonchi. No intercostal retractions. HEART: Regular rate and rhythm. No murmur. ABDOMEN: Soft No tenderness. EXTREMITIES: No pedal edema. NEUROLOGICAL: Patient is awake, alert and oriented x3. Assessment: Syncope Hypertension Hyperlipidemia Diabetes History of stroke Plan: Continue patient's home cardiac medications Interrogation of loop recorder has been reviewed Obtain 2-D echocardiogram and Doppler study and if this is unremarkable, patient is cleared for discharge from cardiology. Patient may follow-up in the office with Dr. Jorden Taylor in 2 weeks. Nurse practitioner note has been reviewed, I agree with documented findings and plan of care. Patient was seen and examined. Objective - Vital Signs Vital signs: Vital Signs Temp 98.5 F 05/03/23 02:16 Pulse 68 05/03/23 02:16 Resp 18 05/03/23 02:16 BP 147/86 05/03/23 02:16 Pulse Ox 97 05/03/23 02:16 FiO2 Intake & Output 05/02/23 05/03/23 05/03/23 18:59 06:59 18:59 Output Total 900 Balance -900 Output: Urine 900 Other: Voiding Method Urinal Urinal # Voids 2 - Labs CBC & Chem 7: 05/02/23 05:20 05/02/23 05:20 Labs: Abnormal Lab Results - Last 24 Hours (Table) 05/02/23 05/03/23 Range/Units 19:55 06:08 POC Glucose (mg/dL) 158 H 156 H (70-110) mg/dL
[2023-05-03] MEDS: FUROSEMIDE 20 MG TAB PO SCH (09:56)
[2023-05-03] MEDS: TAMSULOSIN 0.4 MG CAP.ER.24H PO SCH (09:56)
[2023-05-03] MEDS: amLODIPine 10 MG TAB PO SCH (09:56)
[2023-05-03] MEDS: CLOPIDOGREL 75 MG TAB PO SCH (09:56)
[2023-05-03] MEDS: MONTELUKAST 10 MG TAB PO SCH (09:56)
[2023-05-03] MEDS: CITALOPRAM HYDROBROMIDE 20 MG TAB PO SCH (09:56)
[2023-05-03] MEDS: POLYMYXIN B-TRIMETHOPRIM SULF (10,000-1) OPHTH DROPS 10 ML BTL BOTH EYES SCH (10:09)
--- NOTE | 2023-05-03 11:56 | CA ---
Transthoracic Echo Report Name: Hawk Taylor Age: 72 Gender: M : 1950 Exam Date: 05/03/2023 09:23 Exam Location: [facility] Ht (in): 66 Wt (lb): 190 Ordering Physician: Fanny Calles Attending/Referring Phys: [id number], [facility] Manager Karsten Mehta Procedure CPT: Indications: LVF Cardiac Hx: Technical Quality: Fair Contrast 1: Total Dose (mL): Contrast 2: Total Dose (mL): MEASUREMENTS (Male / Female) Normal Values 2D ECHO LV Diastolic Diameter PLAX 5.1 cm 4.2 - 5.9 / 3.9 - 5.3 cm LV Systolic Diameter PLAX 3.8 cm IVS Diastolic Thickness 1.2 cm 0.6 - 1.0 / 0.6 - 0.9 cm LVPW Diastolic Thickness 1.3 cm 0.6 - 1.0 / 0.6 - 0.9 cm LV Relative Wall Thickness 0.5 RV Internal Dim ED PLAX 3.6 cm LVOT Diameter 2.0 cm Aortic Root Diameter 2.9 cm LA Systolic Diameter LX 2.4 cm 3.0 - 4.0 / 2.7 - 3.8 cm LV Diastolic Volume MOD BP 62.9 cm??? 67 - 155 / 56 - 104 cm??? LV Systolic Volume MOD BP 31.4 cm??? - 58 / 19 - 49 cm??? LV Ejection Fraction MOD BP 50.1 % >= 55 % LV Cardiac Index MOD BP 1009.3 cm???/min???m??? LV Diastolic Volume MOD 4C 70.3 cm??? LV Systolic Volume MOD 4C 33.6 cm??? LV Ejection Fraction MOD 4C 52.2 % LV Cardiac Index MOD 4C 1175.0 cm???/min???m??? LV Diastolic Length 4C 7.4 cm LV Systolic Length 4C 6.3 cm LV Diastolic Volume MOD 2C 54.0 cm??? LV Systolic Volume MOD 2C 27.1 cm??? LV Ejection Fraction MOD 2C 49.7 % LV Cardiac Index MOD 2C 859.1 cm???/min???m??? LV Diastolic Length 2C 7.0 cm LV Systolic Length 2C 5.8 cm LA Volume 40.7 cm??? 18 - 58 / 22 - 52 cm??? LA Volume Index 20.0 cm???/m??? 16 - 28 cm???/m??? DOPPLER AV Peak Velocity 137.4 cm/s AV Peak Gradient 7.6 mmHg LVOT Peak Velocity 91.2 cm/s LVOT Peak Gradient 3.3 mmHg LVOT Velocity Time Integral 18.8 cm LVOT Stroke Volume 57.8 cm??? LVOT Stroke Volume Index 29.5 ml/m??? LVOT Cardiac Index 1849.6 cm???/min???m??? AV Area Cont Eq pk 2.0 cm??? MV Peak Velocity 112.3 cm/s MV Peak Gradient 5.0 mmHg MV Mean Velocity 48.3 cm/s MV Mean Gradient 1.2 mmHg MV Velocity Time Integral 35.6 cm MR Peak Velocity 245.7 cm/s MR Peak Gradient 24.1 mmHg Mitral E Point Velocity 68.0 cm/s Mitral A Point Velocity 91.8 cm/s Mitral E to A Ratio 0.7 MV Deceleration Time 370.5 ms MV E' Velocity 5.1 cm/s Mitral E to MV E' Ratio 13.3 TR Peak Velocity 218.2 cm/s TR Peak Gradient 19.0 mmHg Right Ventricular Systolic Press 24.0 mmHg PV Peak Velocity 88.5 cm/s PV Peak Gradient 3.1 mmHg FINDINGS Left Ventricle Normal LV size. Mild concentric LVH. Left ventricular ejection fraction is estimated at 50-55 %. Right Ventricle Normal right ventricular size. Right Atrium Normal right atrial size. Left Atrium Normal left atrial size. Mitral Valve Structurally normal mitral valve. Mild MR. Aortic Valve Trileaflet aortic valve. No aortic valve stenosis or regurgitation. Tricuspid Valve Structurally normal tricuspid valve. No tricuspid regurgitation. Pulmonic Valve Pulmonic valve not well visualized. No pulmonic regurgitation. Pericardium Not well visualized. Aorta Normal size aortic root. CONCLUSIONS Normal LV function Mild mitral regurgitation Previewed by: Dr. Dave Taylor MD (Electronically Signed) Final Date: 03 May 2023 11:55
[2023-05-03 13:31] LABS: Glucose,Whole Blood 211 mg/dL (70-110)
[2023-05-03 13:31] LABS: ALT 45 U/L (4-49); AST 54 U/L (17-59); African American GFR (CKD) 90 (>60 ml/min/1.73 sqM); Albumin 3.7 g/dL (3.5-5.0); Albumin/Globulin Ratio 1.4; Alkaline Phosphatase 88 U/L (38-126); Anion Gap 9 mmol/L; Blood Urea Nitrogen 14 mg/dL (9-20); Calcium 8.4 mg/dL (8.4-10.2); Carbon Dioxide 25 mmol/L (22-30); Chloride 97 mmol/L (98-107); Globulin 2.7 g/dL; Glucose 200 mg/dL (74-99); Non-African American GFR(CKD) 77 (>60 ml/min/1.73 sqM); Potassium 3.9 mmol/L (3.5-5.1); Sodium 131 mmol/L (137-145); Total Bilirubin 0.4 mg/dL (0.2-1.3); Total Protein 6.4 g/dL (6.3-8.2)
[2023-05-03 13:38] LABS: Basophils % (A) 0 %; Eosinophils # (A) 0.1 k/uL (0-0.7); Eosinophils % (A) 1 %; HCT 40.6 % (39.0-53.0); HGB 13.5 gm/dL (13.0-17.5); Lymphocytes % (A) 24 %; MCH 31.5 pg (25.0-35.0); MCHC 33.2 g/dL (31.0-37.0); MCV 94.7 fL (80.0-100.0); Mean Platelet Volume 10.9; Monocytes # (A) 0.6 k/uL (0-1.0); Monocytes % (A) 7 %; Neutrophils # (A) 5.5 k/uL (1.3-7.7); Neutrophils % (A) 66 %; Platelet Count 148 k/uL (150-450); RBC 4.29 m/uL (4.30-5.90); WBC 8.3 k/uL (3.8-10.6)
--- NOTE | 2023-05-03 13:49 | CT ---
EXAMINATION TYPE: CT chest wo con DATE OF EXAM: 05/03/2023 COMPARISON: None HISTORY: hypoxia CT DLP: 401.[address] of the chest was performed with lung and mediastinal window settings submitted. The la ck of contrast limits evaluation of the vascular, mediastinal and parenchymal structures including th e upper abdomen. LUNGS: The lungs are clear and free of infiltrate. No atelectasis. No pulmonary nodule or mass is de tected. No pleural effusion. No CT evidence of interstitial lung disease. MEDIASTINUM/JANEEN: Small fixed hiatal hernia seen. Thoracic aorta is of normal caliber with limited e valuation given lack of contrast. The heart is not enlarged. No evidence for mediastinal mass. No lymph nodes greater than 1cm. UPPER ABDOMEN: Gallbladder surgically absent. OTHER: No significant other abnormality. IMPRESSION: 1. No acute intrathoracic process appreciated. 2. Fixed hiatal hernia.
[2023-05-03 17:40] LABS: Glucose,Whole Blood 230 mg/dL (70-110)
[2023-05-03] MEDS: ATORVASTATIN 40 MG TAB PO SCH (17:48)
--- NOTE | 2023-05-03 19:46 | HP ---
HISTORY AND PHYSICAL HISTORY OF PRESENT ILLNESS: This 72-year-old white male evaluated in the emergency room on 05/02/2023 for syncope, difficulty with speech. He has a history of a stroke with profound language difficulty. He got up to the restroom in the middle of the night, was dizzy and passed out. This never happened before. HOME MEDICINES: Reviewed. ALLERGIES: Persantine, iodine, morphine. PAST SURGICAL HISTORY: Back surgery, cholecystectomy, heart catheterization, hernia repair, Ben fundoplication, right knee arthroscopy, bilateral cataracts father. FAMILY HISTORY: Mother with dementia. Father with dementia, Alzheimer's. REVIEW OF SYSTEMS: A 14-point review of systems otherwise negative. PHYSICAL EXAMINATION: VITAL SIGNS: Blood pressure at admission was 81/79, now 134/75 in the ER. Saturating 93 to 95 on 2 L. EKG shows sinus rhythm (fascicular block). LUNGS: Scattered rhonchi and wheeze. CARDIOVASCULAR: Irregularly irregular rhythm. ABDOMEN: Soft, diffuse tenderness. HEMATOLOGY: 2+ edema. NEUROLOGIC: He has a speech impediment secondary to stroke. He has some right-sided weakness Labs were reviewed. EKG reviewed, he had hyponatremia, hypokalemia, syncope, unclear etiology. History of diabetes, COPD, pulmonary hypertension, coronary disease cardiology consult, orthostatic changes. Replace electrolytes. Given fluids for dehydration. Seen in the emergency room on 05/02/2023 Karl JORDAN / KRISTINA: [id number] /
[2023-05-03 20:22] LABS: Glucose,Whole Blood 249 mg/dL (70-110)
[2023-05-04] MEDS: BUDESONIDE 0.5 MG/2 ML NEBU INHALATION SCH ×2 (01:16→09:18)
[2023-05-04] MEDS: IPRATROPIUM-ALBUTEROL 3 ML NEB INHALATION SCH ×2 (01:16→09:18)
[2023-05-04 05:25] LABS: Glucose,Whole Blood 167 mg/dL (70-110)
[2023-05-04] MEDS: INSULIN ASPART (NovoLOG) 100 UNIT/ML VIAL SQ SCH ×2 (05:30→13:05)
[2023-05-04] MEDS: PANTOPRAZOLE 40 MG TABLET PO SCH (05:31)
[2023-05-04 08:36] VITALS: RESP 20
[2023-05-04] MEDS: CLOPIDOGREL 75 MG TAB PO SCH (09:43)
[2023-05-04] MEDS: CITALOPRAM HYDROBROMIDE 20 MG TAB PO SCH (09:43)
[2023-05-04] MEDS: FUROSEMIDE 20 MG TAB PO SCH (09:43)
[2023-05-04] MEDS: MONTELUKAST 10 MG TAB PO SCH (09:43)
[2023-05-04] MEDS: amLODIPine 10 MG TAB PO SCH (09:43)
[2023-05-04] MEDS: TAMSULOSIN 0.4 MG CAP.ER.24H PO SCH (09:43)
[2023-05-04] MEDS: POLYMYXIN B-TRIMETHOPRIM SULF (10,000-1) OPHTH DROPS 10 ML BTL BOTH EYES SCH (10:27)
[2023-05-04 10:57] LABS: Basophils # (A) 0.02 X 10*3/uL (0.00-0.10); Basophils % (A) 0.3 %; Eosinophils % (A) 1.3 %; HGB 13.1 g/dL (13.0-17.0); Lymphocytes # (A) 2.37 X 10*3/uL (0.90-5.00); Lymphocytes % (A) 31.2 %; MCHC 33.6 g/dL (32.0-37.0); MCV 92.4 FL (80.0-97.0); Mean Platelet Volume 11.9 FL (9.5-12.2); Monocytes # (A) 0.52 X 10*3/uL (0.20-1.00); Monocytes % (A) 6.8 %; NRBC Per 100 WBC 0 X 10*3/uL (0.00-0.01); Neutrophils # (A) 4.57 X 10*3/uL (1.80-7.70); Neutrophils % (A) 60.1 %; Platelet Count 156 X 10*3/uL (140-440); RBC 4.22 X 10*6/uL (4.40-5.60); RDW 12.7 % (11.5-14.5)
--- NOTE | 2023-05-04 11:06 | P.PN ---
Subjective Progress Note Date: 05/04/23 History of present illness: This is a 72-year-old male patient previously seen by Dr. Marcano last seen 02/2021 with past medical history of hypertension, hyperlipidemia, diabetes, CVA, syncopal episodes. Patient does have a loop recorder. We have been asked to evaluate the patient for syncope. Patient presented to the emergency center due to syncope at home. The patient was apparently dizzy and attempting to get some water to drink and ended up falling down. He denies having any chest pain. He does complain of headache. Patient has chronic weakness on the right side secondary to a CVA. Patient also complains of congestion in his head and sinus symptoms. Patient is difficult to understand due to speech difficulty related to the CVA. Patient is seen today in the emergency center waiting for bed on the observation unit. EKG sinus rhythm with left anterior fascicular block Chest x-ray: No acute process CAT scan of the brain no acute intracranial process. CBC unremarkable. Sodium 132, potassium 3.1, BUN 13 creatinine 1.1. Liver function tests are normal. Troponin negative 1. Blood sugar 261. Home cardiac medications: Amlodipine 10 mg daily, atorvastatin 40 mg with supper, Plavix 75 mg daily, Lasix 20 mg daily. Echocardiogram performed 2019 revealed EF of 50-55%, severe concentric left ventricle hypertrophy, mild mitral regurgitation, mild tricuspid regurgitation. 05/03 Patient is seen and examined in the emergency center. The loop recorder has been interrogated no pauses or arrhythmias noted. Patient has had no other episodes of syncope or dizziness. Echocardiogram is pending. Heart rate has been in the 60s, blood pressure 147/86, pulse ox 97% on 4 L nasal cannula. 05/04 Patient is seen today in follow-up. He is now on the observation unit. Orthostatics have been negative. Blood pressure is stable at 143/81, heart rate is in the 60s. Telemetry is sinus rhythm. Repeat CBC is unremarkable. Echocardiogram reveals normal LV function. Mild mitral regurgitation. Physical examination: Gen: This is a 72-year-old male. He is resting in bed appears to be comfortable, no acute distress. VS: reviewed HEENT: Head is atraumatic, normocephalic. Pupils equal, round. Sclerae is anicteric. LUNGS: Clear to auscultation. No wheezes or rhonchi. No intercostal retractions. HEART: Regular rate and rhythm. No murmur. EXTREMITIES: No pedal edema. NEUROLOGICAL: Patient is awake, alert and oriented x3. Assessment: Syncope Hypertension Hyperlipidemia Diabetes History of stroke Plan: Continue patient's home cardiac medications Interrogation of loop recorder has been reviewed Patient is cleared for discharge from cardiology. Patient may follow-up in the office with Dr. Jorden Taylor in 2 weeks. Nurse practitioner note has been reviewed, I agree with documented findings and plan of care. Patient was seen and examined. Objective - Vital Signs Vital signs: Vital Signs Temp 98.6 F 05/04/23 07:00 Pulse 66 05/04/23 09:34 Resp 20 05/04/23 07:00 BP 143/81 05/04/23 07:00 Pulse Ox 99 05/04/23 09:18 FiO2 Intake & Output 05/03/23 05/04/23 05/04/23 18:59 06:59 18:59 Output Total 950 Balance -950 Output: Urine 950 Other: Voiding Method Urinal # Voids 2 - Labs CBC & Chem 7: 05/04/23 05:40 05/03/23 12:55 Labs: Abnormal Lab Results - Last 24 Hours (Table) 05/03/23 05/03/23 05/03/23 Range/Units 12:55 12:55 13:28 RBC 4.29 L (4.30-5.90) m/uL Hct (39.6-50.0) % Plt Count 148 L (150-450) k/uL Sodium 131 L (137-145) mmol/L Chloride 97 L (98-107) mmol/L Glucose 200 H (74-99) mg/dL POC Glucose (mg/dL) 211 H (70-110) mg/dL 05/03/23 05/03/23 05/04/23 Range/Units 17:39 20:21 05:24 RBC (4.30-5.90) m/uL Hct (39.6-50.0) % Plt Count (150-450) k/uL Sodium (137-145) mmol/L Chloride (98-107) mmol/L Glucose (74-99) mg/dL POC Glucose (mg/dL) 230 H 249 H 167 H (70-110) mg/dL 05/04/23 Range/Units 05:40 RBC 4.22 L (4.30-5.90) m/uL Hct 39.0 L (39.6-50.0) % Plt Count (150-450) k/uL Sodium (137-145) mmol/L Chloride (98-107) mmol/L Glucose (74-99) mg/dL POC Glucose (mg/dL) (70-110) mg/dL
[2023-05-04 11:21] LABS: ALT 38 U/L (10-49); AST 42 U/L (14-35); Albumin 3.9 g/dL (3.8-4.9); Albumin/Globulin Ratio 1.86 Ratio (1.60-3.17); Alkaline Phosphatase 92 U/L (41-126); BUN/Creat Ratio 13.45 Ratio (12.00-20.00); Blood Urea Nitrogen 14.8 mg/dL (9.0-27.0); Calcium 8.9 mg/dL (8.7-10.3); Chloride 96 mmol/L (96-109); Globulin 2.1 g/dL (1.6-3.3); Glucose 166 mg/dL (70-110); Potassium 3.6 mmol/L (3.5-5.5); Sodium 135 mmol/L (135-145); Total Bilirubin 0.2 mg/dL (0.3-1.2)
--- NOTE | 2023-05-04 12:44 | PN ---
PROGRESS NOTE DATE OF SERVICE: 05/03/2023 SUBJECTIVE: The patient came in with syncope to the hospital. He has been monitored overnight. He has been up ambulating without passing out. Vital signs, orthostatics are negative, but he is rehydrated. He came in with some dehydration. OBJECTIVE: VITAL SIGNS: Temperature 98.6, pulse 64, respiratory rate 18 to 20. CARDIOVASCULAR: S1, S2. He is saturating 90 to 99 on 2-4 L. He will go home on oxygen, normally he wears oxygen at home . Continue with rehydration. He does look dehydrated. Cleared by Cardiology for discharge. Go home in the morning. MMODL / IJN: [id number] /
[2023-05-04 12:50] LABS: Glucose,Whole Blood 365 mg/dL (70-110)
[2023-05-04 13:42] VITALS: BP 130/72; PULSE 62; TEMP 98.1
== END 2023-05-04 14:15 | disposition home or self-care (01) ==
LOC: EC 05:19 → 6NMEDSUR 07:53
PROVIDERS: ADMIT Family Medicine; ATTEND Family Medicine
DX: R55 Syncope and collapse (principal); E11.9 Type 2 diabetes mellitus without complications; K21.9 Gastro-esophageal reflux disease without esophagitis; E78.5 Hyperlipidemia, unspecified; I10 Essential (primary) hypertension; G47.30 Sleep apnea, unspecified; F41.9 Anxiety disorder, unspecified; F32.A Depression, unspecified; I69.351 Hemiplegia and hemiparesis following cerebral infarction affecting right dominant side; Z79.84 Long term (current) use of oral hypoglycemic drugs; Z79.02 Long term (current) use of antithrombotics/antiplatelets; Z79.899 Other long term (current) drug therapy; Z88.6 Allergy status to analgesic agent
CPT/HCPCS: 96372 ×4; 96361; 96374; 96375; 99285; 36415; 94640 ×2; 94760; 93005; 93306; 92610; 80053 ×3; 84132; 84484; 85025 ×3; 85610; 85730; 71045; 70450; 71250; G0378 ×3; J2405; J1170